=== PATIENT | male | born 1965 | race Caucasian/White ===

== ENCOUNTER 2016-06-27 01:59 | Inpatient (IN) | payer SELFPAY ==
[2016-06-27] MEDS ORDERED: ONDANSETRON HCL INJ/PF 4 MG/2 ML SDV IV ONE (02:04)
[2016-06-27] MEDS ORDERED: NORMAL SALINE 1000 ML 1,000 ML IV PRN (02:05)
[2016-06-27] MEDS ORDERED: GLUCAGON,HUMAN RECOMB 1 MG INJ IM PRN ×2 (02:05→04:28)
[2016-06-27] MEDS ORDERED: NORMAL SALINE 100 ML with INSULIN REGULAR, HUMAN 100 UNIT IV PRN ×4 (02:05→04:28)
[2016-06-27] MEDS ORDERED: DEXTROSE 40% GEL 15 GM TUBE PO PRN ×4 (02:05→04:28)
[2016-06-27] MEDS ORDERED: DEXTROSE 50%-WATER 25 GM/50 ML DISP.SYRIN IV PRN ×4 (02:05→04:28)
[2016-06-27] MEDS ORDERED: INSULIN REG, HUMAN 100 UNIT/ML 3 ML VIAL (PYX) ONE ×2 (02:08→03:15)
[2016-06-27] MEDS ORDERED: SODIUM BICARBONATE 8.4% INJ 50 MEQ/50 ML DISP.SYRIN IV ONE (02:18)
[2016-06-27] MEDS ORDERED: CALCIUM GLUCONATE 1000 MG/10 ML INJ IV ONE (02:20)
--- NOTE | 2016-06-27 02:20 | ER Document Report ---
ED General - General Stated Complaint: BLOOD SUGAR ISSUES Time Seen by Provider: 06/27/16 02:04 Notes: Patient is a 50-year-old male with history of diabetes who presents in what appears to be DKA. He presents for a month. Patient has Kussmaul respirations. History is very limited she is only saying 1 or 2 words at a time. He does admit to IV drug abuse. He cannot tell me the last time he took his insulin. He denies any recent fevers. He has had some vomiting. Further history is very limited due to patient's severely ill state TRAVEL OUTSIDE OF THE [place] IN LAST 30 DAYS: No - Related Data Allergies/Adverse Reactions: No Known Allergies Allergy (Verified 01/26/16 07:42) Past Medical History - Social History Smoking Status: Unknown if Ever Smoked Frequency of alcohol use: None Drug Abuse: Other - IV drug abuse Family History: DM - Past Medical History Cardiac Medical History: Reports: Hx Congestive Heart Failure, Hx Hypertension Endocrine Medical History: Reports: Hx Diabetes Mellitus Type 1 Renal/ Medical History: Reports: Hx Renal Insufficiency - Patient takes an unknown pill for an unknown kidney problem Past Surgical History: Reports: Other - Denies any recent surgery Review of Systems - Review of Systems -: Yes ROS unobtainable due to patient's medical condition - Patient is very ill Physical Exam - Notes Notes: General Appearance: Very thin appearing, alert, cooperative, no acute distress, active Kussmaul respirations. Vitals: reviewed, See vital signs table. Head: no swelling or tenderness to the head Eyes: PERRL, EOMI, Conjuctiva clear Mouth: No decreasd moisture very dry Neck: Supple, no neck tenderness, No thyromegaly Lungs: No wheezing, No rales, No rhonci, 2 small type respirations, good air exchange bilaterally. Heart: Tachycardic rate, Regular rythm, No murmur, no rub Abdomen: Normal BS, soft, No rigidity, No abdominal tenderness, No guarding, no rebound, no abdominal masses, no organomegaly Extremities: strength 5/5 in all extremities, good pulses in all extremities, no swelling or tenderness in the extremities, no edema. Skin: warm, dry, appropriate color, no rash Neuro: speech clear, oriented x 3, moves all extremities on exam. Course - Re-evaluation Re-evalutation: 06/27/16 02:19 Patient EKG shows peaked T waves. I suspect he is very acidotic and most likely hyperkalemic because of it. I have ordered an insulin drip which has been started. I will give him an amp of bicarb as well. We are waiting for his chemistry panel to return. Patient is also receiving IV fluids. We will keep him on a hall monitor. I will give him calcium gluconate to help stabilize cardiac membranes until I see what his actual potassium is. 06/27/16 03:11 Lab called to inform the nurse that the chemistry panel is hemolyzed. I immediately called lab to discuss this with him. They feel that the blood was hemolyzed because his potassium came back at 7.8 and also they are having a hard time obtaining a glucose level. I informed him that I expect his potassium be very high and therefore I want him to go ahead and release the results of the chemistry panel and I will order a second chemistry panel to be redrawn now to help further confirm the results. I will give him a bolus of 10 units of insulin. We will continue the insulin drip on top of that. I will add a bicarb drip. I did just reevaluate the patient and he is awake alert and appropriate. He still has Kussmal type respirations but not as severe as when he first arrived. - Laboratory Result Diagrams: 06/27/16 02:38 06/27/16 03:10 Laboratory results interpreted by me: 06/27/16 06/27/16 06/27/16 02:38 02:38 02:38 WBC 11.5 H RBC 3.90 L Hgb 12.7 L MCV 107 H MCHC 30.5 L RDW 14.8 H Seg Neuts % (Manual) 91 H Band Neutrophils % 1 L Lymphocytes % (Manual) 1 L Abs Neuts (Manual) 10.6 H Abs Lymphs (Manual) 0.1 L Sodium 133.6 L Potassium 7.9 H* Chloride 91 L Carbon Dioxide < 5 L* Anion Gap BUN 53 H Creatinine 2.14 H Est GFR ( Amer) 40 L Est GFR (Non-Af Amer) 33 L Glucose 1083 H* Magnesium 2.7 H Direct Bilirubin 0.7 H Total Protein 6.1 L Urine Glucose (UA) Urine Ketones 06/27/16 06/27/16 02:51 03:10 WBC RBC Hgb MCV MCHC RDW Seg Neuts % (Manual) Band Neutrophils % Lymphocytes % (Manual) Abs Neuts (Manual) Abs Lymphs (Manual) Sodium Potassium 5.9 H D Chloride Carbon Dioxide 7 L* Anion Gap 33 H BUN 49 H Creatinine 1.77 H Est GFR ( Amer) 50 L Est GFR (Non-Af Amer) 41 L Glucose 910 H* Magnesium Direct Bilirubin Total Protein Urine Glucose (UA) >=500 H Urine Ketones 80 H - Transfer of Care Notes: 06/27/16 04:19 On reevaluation the patient's Kussmaul respirations are improving. He is now speaking in full sentences. His potassium on the repeat chemistry panel is improved. The CO2 is improving. His glucose is slowly improving as well. At this time will admit the patient for further treatment of his DKA. I did speak with the hospitalist who agrees to admit the patient. Dictation of this chart was performed using voice recognition software; therefore, there may be some unintended grammatical errors. Critical Care Note - Critical Care Note Total time excluding time spent on procedures (mins): 45 Comments: Critical care time not including times spent on procedures was approximately 45 minutes to do frequent re-evaluations, management of severe hyperkalemia, management of severe metabolic acidosis, management of his DKA. Discharge - Discharge Clinical Impression: Hyperkalemia, Substance abuse Diabetic ketoacidosis Qualifiers: Diabetes mellitus type: type 1 Diabetes mellitus complication detail: without coma Qualified Code(s): E10.10 - Type 1 diabetes mellitus with ketoacidosis without coma Condition: Serious Disposition: ADMITTED INPATIENT Admitting Provider: Hospitalist Unit Admitted: [facility]
[2016-06-27 03:02] LABS: APPEARANCE,URINE CLEAR; BILIRUBIN,URINE NEGATIVE (NEGATIVE); GLUCOSE, URINE >=500 mg/dL (NEGATIVE); KETONES,URINE 80 mg/dL (NEGATIVE); LEUKOCYTE ESTERASE,URINE NEGATIVE (NEGATIVE); NITRITE,URINE NEGATIVE (NEGATIVE); PROTEIN,URINE NEGATIVE (NEGATIVE); URINE SPECIFIC GRAVITY 1.017; UROBILINOGEN,URINE NEGATIVE mg/dL (<2.0)
[2016-06-27] MEDS ORDERED: DEXTROSE 5%-WATER 1000 ML 1,000 ML with SODIUM BICARBONATE 150 MEQ IV PRN ×4 (03:08→04:30)
[2016-06-27 03:09] LABS: ALANINE AMINOTRANSFERASE 51 U/L (21-72); ALBUMIN 3.8 g/dL (3.5-5.0); ALKALINE PHOSPHATASE 126 U/L (38-126); ASPARTATE AMINO TRANSFERASE 35 U/L (17-59); BILIRUBIN,DIRECT 0.7 mg/dL (0.0-0.4); BILIRUBIN,TOTAL 0.8 mg/dL (0.2-1.3); BLOOD UREA NITROGEN 53 mg/dL (7-20); CALCIUM 8.9 mg/dL (8.4-10.2); CREATININE RESULT 2.14 mg/dL (0.52-1.25); TOTAL PROTEIN 6.1 g/dL (6.3-8.2)
[2016-06-27] MEDS ORDERED: INSULIN REG, HUMAN 100 UNIT/ML 3 ML VIAL (PYX) IV ONE (03:10)
[2016-06-27 03:16] LABS: URINE BARBITURATES SCREEN NEGATIVE; URINE METHADONE SCREEN NEGATIVE; URINE OPIATES LOW NEGATIVE; URINE PHENCYCLIDINE SCREEN NEGATIVE
[2016-06-27 03:20] LABS: CHLORIDE 91 mmol/L (98-107); SODIUM 133.6 mmol/L (137-145)
[2016-06-27 03:25] LABS: GLUCOSE 1083 mg/dL (75-110); POTASSIUM 7.9 mmol/L (3.6-5.0)
[2016-06-27 03:26] LABS: CARBON DIOXIDE < 5 mmol/L (22-30); HEMATOCRIT 41.6 % (37.9-51.0); HEMOGLOBIN 12.7 g/dL (13.5-17.0); HGB HCT DIFFERENCE -3.5; MEAN CORPUSCULAR HEMOGLOBIN 32.5 pg (27.0-33.4); MEAN CORPUSCULAR HGB CONC 30.5 g/dL (32.0-36.0); MEAN CORPUSCULAR VOLUME 107 fl (80-97); RED CELL DISTRIBUTION WIDTH 14.8 % (11.5-14.0); WHITE BLOOD COUNT 11.5 10^3/uL (4.0-10.5)
[2016-06-27 03:36] LABS: BLOOD UREA NITROGEN 49 mg/dL (7-20); CALCIUM 8.4 mg/dL (8.4-10.2); CREATININE RESULT 1.77 mg/dL (0.52-1.25)
[2016-06-27] MEDS ORDERED: SODIUM BICARBONATE 8.4% INJ 50 MEQ/50 ML DISP.SYRIN ONE (03:36)
[2016-06-27 03:41] LABS: BAND NEUTROPHILS % (MANUAL) 1 % (3-5); BASOPHILS % (MANUAL) 0 % (0-2); EOSINOPHILS % (MANUAL) 0 % (0-6); LYMPHOCYTES % (MANUAL) 1 % (13-45); TOTAL CELLS COUNTED 100; TOXIC VACUOLATION PRESENT
[2016-06-27 03:42] LABS: ANISOCYTOSIS SLIGHT
[2016-06-27 03:44] LABS: POIKILOCYTOSIS SLIGHT
[2016-06-27 03:45] LABS: PLATELET CLUMPS PRESENT
[2016-06-27 03:46] LABS: TOXIC GRANULATION SLIGHT
[2016-06-27 03:52] LABS: CHLORIDE 98 mmol/L (98-107); SODIUM 137.7 mmol/L (137-145)
[2016-06-27 03:56] LABS: GLUCOSE 910 mg/dL (75-110); POTASSIUM 5.9 mmol/L (3.6-5.0)
[2016-06-27 03:57] LABS: ANION GAP 33 (5-19); CARBON DIOXIDE 7 mmol/L (22-30)
[2016-06-27] MEDS ORDERED: NORMAL SALINE 1000 ML 1,000 ML IV ONE (04:12)
[2016-06-27] MEDS ORDERED: THIAMINE HCL 100 MG in NORMAL SALINE 50 ML IV ONE (04:25)
[2016-06-27] MEDS ORDERED: 1/2 NORMAL SALINE 2,000 ML IV ONE (04:27)
[2016-06-27] MEDS ORDERED: 1/2 NORMAL SALINE 1,000 ML IV PRN ×2 (04:27→04:29)
[2016-06-27 04:41] LABS: ADD ON TESTING BLD IN LAB ACKNOWLEDGE
[2016-06-27 04:55] LABS: ALCOHOL < 10 mg/dL (NONE DETECTED)
[2016-06-27 05:26] LABS: BLOOD UREA NITROGEN 47 mg/dL (7-20); CALCIUM 8.4 mg/dL (8.4-10.2); CHLORIDE 101 mmol/L (98-107); CREATININE RESULT 1.72 mg/dL (0.52-1.25); POTASSIUM 5.3 mmol/L (3.6-5.0); SODIUM 140.2 mmol/L (137-145)
[2016-06-27] MEDS ORDERED: THIAMINE HCL INJ 200 MG/2 ML VIAL ONE (05:28)
[2016-06-27 05:46] LABS: CARBON DIOXIDE 7 mmol/L (22-30); GLUCOSE 765 mg/dL (75-110)
[2016-06-27 05:47] LABS: ANION GAP 32 (5-19)
[2016-06-27] MEDS ORDERED: IPRATROPIUM/ALBUTEROL 0.5-2.5 MG/3 ML AMPUL NEB PRN (05:51)
[2016-06-27] MEDS ORDERED: ACETAMINOPHEN 650 MG SUPP.RECT PR PRN (05:51)
--- NOTE | 2016-06-27 06:31 | PDOC H&P ---
History of Present Illness Admission Date/PCP: 06/27/16 05:06 PCP Uncertain Patient complains of: blood sugar problems History of Present Illness: AMPARO PHAN is a 50 year old male, type I diabetic, previously admitted to our service in diabetic ketoacidosis, and with a known history of intravenous cocaine use, who presents to the emergency room for evaluation of above complaints. Patient has been discussed with emergency room physician who evaluated the patient. Patient is quite ill and confused, mostly only mumbling incoherently to basic questions asked of him, and is able to provide no history whatsoever in terms of acute or chronic events, review of systems, personal habits, family history, etc. No friends or family are present. Old inpatient records are reviewed. . Emergency room physician notes reviewed. Patient does currently deny pain. Also denies any "sore spots" anywhere on his body. No further information available this point in time. Patient has received multiple crystalloid boluses, along with insulin and bicarb drip, started by emergency room physician. According to the emergency room physician, patient's overall appearance has improved somewhat from admission. Patient hospitalized on our service the through 27 January of last year with final diagnoses including diabetic ketoacidosis, and abnormal liver function tests. History and physical and discharge summary have been reviewed. Laboratory results are listed in [facility] and are reviewed. X-ray summary results are listed below, with full report(s) reviewed. . EKG reviewed and compared to prior tracing from January 25 of last year. Social history/personal habits: Information obtained from above noted history and physical exam. At that time, he was living with his parents, and was a current everyday smoker. "Social" alcohol use, with previous documentation of heavy use. No further information available this point in time. No known drug allergies Home medications initially autopopulated into [facility] may not accurately reflect patient's true medications, dosages, and/or frequencies. cardiac catheterization technician to reconcile medications. Patient states that he is taking 70/30 insulin, could not be anymore specific than this. REVIEW OF SYSTEMS: See history and present illness. No further information available this point in time. PHYSICAL EXAMINATION: 44.9 kg. Height is not recorded on the chart.Temperature 98.3. Pulse 110 and regular. Blood pressure 188/99. Respirations are 25, with patient breathing in somewhat of a Kussmaul fashion. According to emergency room physician, respiratory patten is much improved versus on presentation to the emergency room. 100% saturation on room air. Thin chronically ill-appearing male, somewhat disheveled appearance. Appears a number of years older than his stated age. Appears quite ill. Occasional shivering. Skin is warm and dry. No grossly obvious evidence of rash in areas of skin examined. No subcutaneous nodules palpated. ENT: Hearing grossly normal to normal conversation. Tongue midline on protrusion pink and tacky. Eyes: No scleral icterus. Pupils equal and reactive to light at 4 mm. Purdy conjunctivae. No raccoon eyes Neck is supple and nontender to gentle active range of motion and palpation. Midline trachea. No palpable thyroid nodule mass enlargement or tenderness. Lymphatic: No palpable cervical or clavicular nodes. Neck and lymphatic exams limited by patient body habitus. Psychiatric: Cannot be adequately evaluated due to his current status. See history and present illness. Lungs: Auscultation reveals clear and equal breath sounds bilaterally. No use of accessory respiratory muscles. Cardiovascular: Heart regular rate and rhythm, without gallop murmur or rub. No carotid or abdominal aortic bruits. No ankle or pedal edema. Faintly palpable dorsalis pedis pulses. Abdomen:soft slightly distended nontender with positive bowel sounds. Unable to adequately evaluate abdomen for masses or organomegaly due to distention. Extremities: Feet are warm and dry. No calf tenderness to compression. No grossly obvious visual evidence of calf swelling. Gentle manipulation of lower extremities fails to reveal any obvious evidence of injury or instability to knees hips or ankles. Neurologic: Moves upper extremities grossly normally. Patellar reflexes absent. Absent Babinski. Light touch cannot be determined due to his current mental status.. Dorsiflexion and plantarflexion of feet 5 / 5 and symmetric. Past Medical History Past Medical History: Patient cannot provide any information related to his medical history, due to his current status. See history and present illness. Cardiac Medical History: Reports: Congestive Heart Failure, Hypertension Endocrine Medical History: Reports: Diabetes Mellitus Type 1 Psychiatric Medical History: Reports: Substance Abuse Past Surgical History Past Surgical History: Reports: None - per ER staff. Social History Information Source: Emergency Med Personnel, [facility] Records Lives with: Parents - Previously lived with parents. Uncertain at present. Smoking Status: Smoker,Current Status Unk Frequency of Alcohol Use: Occasional - Reported history of heavy alcohol use. Hx Recreational Drug Use: No Drugs: Cocaine Hx Prescription Drug Abuse: No - Advance Directive Resuscitation Status: Full Code Surrogate healthcare decision maker:: Likely his parents, but not completely certain at this point in time. Family History Family History: DM Parental Family History Reviewed: No - Patient cannot provide any information related to same. Children Family History Reviewed: No - Patient cannot provide any information related to same. Sibling(s) Family History Reviewed.: No - Patient cannot provide any information related to same. Medication/Allergy Home Medications: Oxycodone HCl/Acetaminophen [Percocet 5-325 mg Tablet] 1 - 2 tab PO ASDIR PRN # 15 tablet 07/15/13 Unable To Obtain 07/15/13 Lisinopril [Prinivil 10 mg Tablet] 10 mg PO DAILY 06/27/16 Hum Insulin NPH/Reg Insulin Hm [Insulin 70-30 (NPH/Reg) 100 unit/mL] 30 unit SUBCUT BIDACBS #5 bottle 06/28/16 Insulin Regular, Human [Novolin R (Reg) Insulin 100 unit/mL] See Protocol SUBCUT DAILYP PRN #0 06/28/16 Allergies/Adverse Reactions: No Known Allergies Allergy (Verified 01/26/16 07:42) Physical Exam Vital Signs: Temp Pulse Resp BP Pulse Ox 98.3 F 25 H 188/99 H 100 06/27/16 05:02 06/27/16 05:02 06/27/16 05:02 06/27/16 05:02 Results Impressions: Chest X-Ray 06/27/16 00:00 IMPRESSION: Small chronic obscuration of the right costophrenic angle may indicate scar and/or effusion. Assessment & Plan - Diagnosis (1) Acute encephalopathy Is this a current diagnosis for this admission?: YesPlan: Hopefully will improve with time and treatment. (2) DKA, type 1 Qualifiers: Diabetes mellitus complication detail: without coma Qualified Code(s ): E10.10 - Type 1 diabetes mellitus with ketoacidosis without coma Is this a current diagnosis for this admission?: YesPlan: Patient will be admitted under DKA protocol. Insulin drip. Vigorous fluid hydration. Q 4 hours chemistry 7. Hourly Accu-Cheks. Addition of dextrose to intravenous fluid once serum glucose and/or Accu-Cheks 275 or less. IV Pepcid for gastritis prophylaxis. Continue bicarb drip for now. Patient is full code. Knee high SCDs for DVT prophylaxis, along with subcutaneous heparin. Critical care Time spent in evaluation and management of patient: 63 minutes (3) Elevated troponin Is this a current diagnosis for this admission?: YesPlan: Still in the indeterminate range. Likely due to the stress of his DKA. Repeat troponin 2. (4) Hyperkalemia Is this a current diagnosis for this admission?: YesPlan: Should gradually resolve with continued treatment of DKA. Serial chemistry. (5) Cocaine abuse Is this a current diagnosis for this admission?: Yes - Inpatient Certification Based on my medical assessment, after consideration of the patient's comorbidities, presenting symptoms, or acuity I expect that the services needed warrant INPATIENT care.: Yes I certify that my determination is in accordance with my understanding of Medicare's requirements for reasonable and necessary INPATIENT services [42 CFR 412.3e].: Yes Medical Necessity: Need Close Monitoring Due to Risk of Patient Decompensation, Need For IV Fluids, Need For Continuous Telemetry Monitoring, Risk of Complication if Not Cared For in Hospital, Risk of Diagnosis Which Will Require Inpatient Eval/Care/Monitoring Post Hospital Care: D/C or Transfer Summary
[2016-06-27] MEDS ORDERED: CHLORPROMAZINE HCL 10 MG TABLET PO ONE (08:45)
[2016-06-27 08:48] LABS: VENOUS BLOOD BASE EXCESS -4.8 mmol/L; VENOUS BLOOD HCO3 19.2 mmol/L (20-32); VENOUS BLOOD PCO2 32.3 mmHg (35-63); VENOUS BLOOD PH 7.39 (7.30-7.42)
[2016-06-27 09:02] LABS: ANION GAP 18 (5-19); BLOOD UREA NITROGEN 37 mg/dL (7-20); CALCIUM 7.7 mg/dL (8.4-10.2); CHLORIDE 101 mmol/L (98-107); CREATININE RESULT 1.24 mg/dL (0.52-1.25); SODIUM 138.7 mmol/L (137-145)
[2016-06-27 09:17] LABS: CARBON DIOXIDE 20 mmol/L (22-30); POTASSIUM 3.8 mmol/L (3.6-5.0)
[2016-06-27 09:19] LABS: GLUCOSE 431 mg/dL (75-110)
[2016-06-27] MEDS: FAMOTIDINE INJ/PF 20 MG/2 ML SDV IV SCH ×2 (09:52→21:26)
[2016-06-27] MEDS: HEPARIN SOD (PORCINE) 5,000 UNIT/ML 1 ML SYRINGE SUBCUT SCH ×2 (09:52→21:26)
[2016-06-27] MEDS ORDERED: POTASSI CL 20 MEQ/D5-1/2NS 1L 1,000 ML IV PRN (10:47)
[2016-06-27] MEDS ORDERED: HUM INSULIN NPH/REG INSULIN HM 100 UNIT/1 ML 3 ML SUBCUT ONE ×2 (11:30→18:00)
--- NOTE | 2016-06-27 13:53 | PROGRESS NOTE E ---
Progress Note NAME: AMPARO PHAN : 1965 AGE: 50Y DATE: 06/27/2016 ROOM: 301 SUBJECTIVE: Patient has been seen twice today on rounds. The patient is no longer obtunded. The patient will awaken and is quite easily agitated. There have been no reported episodes of vomiting nor diarrhea. The patient states that he had been sick for a couple of days prior to coming in. It has been difficult getting the patient to cooperate with blood sticks and so forth. At this time, the patient only complains of "wanting to be left alone." The patient has been afebrile, his blood pressures have been in a good range, and the patient does not voice any other concerns at this time. REVIEW OF SYSTEMS: Rest of review of systems is negative. MEDICATIONS: Medications have been reviewed. OBJECTIVE: GENERAL: Patient is a 50-year-old male who is awake, alert. He is agitated. Does not appear to be in any acute distress. VITAL SIGNS FOLLOWS: Temperature is 98.4, pulse 73, respirations 17, blood pressure 126/78, oxygen saturation 100% on room air. SKIN: Warm and dry, no rash, not diaphoretic. HEENT: Pupils equal, round, reactive to light and accommodation. Conjunctivae pale, pink. NECK: No JVP. CARDIOVASCULAR: Heart is regular with no murmurs or rubs. CHEST: Clear, symmetrical, unlabored. ABDOMEN: Soft, bowel sounds present. BACK: No CVA tenderness or sacral edema. EXTREMITIES: No clubbing, cyanosis, edema. PSYCHIATRIC: Agitated, uncooperative. DIAGNOSTICS: Lab values are as follows: Hematology obtained on 06/27/2016: WBC 11.5, hemoglobin 12.7, hematocrit 41.6, platelet count 184,000. Chemistry obtained on 06/27/2016: Sodium 138, potassium 3.8, chloride 101, carbon dioxide 20, BUN 37, creatinine 0.64, calcium 7.7, current bedside glucose is 276. IMPRESSION AND PLAN: 1. DIABETIC KETOACIDOSIS IN DIABETES MELLITUS, TYPE 1. The patient's gap has closed. CO2 has improved significantly. The patient did have a rapid drop in potassium in a very short amount of time, therefore, even though his glucose is still 276 we will go ahead and transition fluids over to dextrose and transition sliding scale coverage to NovoLog q.2 h. for now. We will go ahead and feed the patient, discontinue the insulin drip, and start on home dose of 70/30. I did obtain a venous blood gas and pH of 7.39, so bicarb drip was discontinued. Will follow. Given that patient's gap is closed, if the patient continues to improve we will downgrade to an intermediate care bed. 2. COCAINE ABUSE. The patient is receiving counseling at this time. 3. HYPERTENSION. Blood pressures have been in a good range. Will defer home blood pressure medication for now. 4. MALNUTRITION. This is most likely due to the chronic acidotic with type 1 diabetes. The patient does have a dietary consult ordered. DISPOSITION: The patient is a FULL CODE. Pending patient's symptomatology and diagnostic findings, will reevaluate in the a.m. TIME: Time spent on this critical care visit including assessment, plan, physical examination, patient education, and family meeting is 40 minutes. DICTATING PHYSICIAN: AMPARO BOND NP [id number] PHY#: [id number] ID: [id number] JOB#: [id number] ACCT: [id number] cc: >
[2016-06-27] MEDS: INSULIN LISPRO 100 UNIT/ML 3 ML VIAL SUBCUT PRN ×2 (14:52→17:17)
[2016-06-27 15:33] LABS: ANION GAP 14 (5-19); BLOOD UREA NITROGEN 28 mg/dL (7-20); CALCIUM 7.6 mg/dL (8.4-10.2); CARBON DIOXIDE 25 mmol/L (22-30); CHLORIDE 99 mmol/L (98-107); CREATININE RESULT 0.97 mg/dL (0.52-1.25); GLUCOSE 314 mg/dL (75-110); POTASSIUM 3.5 mmol/L (3.6-5.0); SODIUM 137.5 mmol/L (137-145)
[2016-06-27] MEDS ORDERED: HUM INSULIN NPH/REG INSULIN HM 100 UNIT/1 ML 3 ML SUBCUT SCH (16:00)
--- NOTE | 2016-06-27 17:44 | EKG REPORT ---
SEVERITY:- ABNORMAL ECG - WANDERING PACEMAKER RBBB AND LAFB PROBABLE LEFT VENTRICULAR HYPERTROPHY : Confirmed by: Dannielle Joshi MD 27-Jun-2016 17:43:51
[2016-06-27 19:34] LABS: ANION GAP 8 (5-19); BLOOD UREA NITROGEN 28 mg/dL (7-20); CALCIUM 8.3 mg/dL (8.4-10.2); CARBON DIOXIDE 27 mmol/L (22-30); CHLORIDE 98 mmol/L (98-107); CREATININE RESULT 0.74 mg/dL (0.52-1.25); GLUCOSE 305 mg/dL (75-110); POTASSIUM 3.4 mmol/L (3.6-5.0); SODIUM 133.1 mmol/L (137-145)
[2016-06-27] MEDS: INSULIN LISPRO 100 UNIT/ML 3 ML VIAL SUBCUT SCH (21:26)
[2016-06-27 23:48] LABS: ANION GAP 7 (5-19); BLOOD UREA NITROGEN 25 mg/dL (7-20); CALCIUM 8.8 mg/dL (8.4-10.2); CARBON DIOXIDE 30 mmol/L (22-30); CHLORIDE 99 mmol/L (98-107); CREATININE RESULT 0.69 mg/dL (0.52-1.25); GLUCOSE 98 mg/dL (75-110); SODIUM 136.3 mmol/L (137-145)
[2016-06-28] MEDS ORDERED: POTASSIUM CHLORIDE 20 MEQ/15 ML UDCUP PO ONE (01:33)
[2016-06-28 01:45] LABS: ADD ON TESTING BLD IN LAB ACKNOWLEDGE
[2016-06-28 01:54] LABS: MAGNESIUM 2.1 mg/dL (1.6-2.3)
[2016-06-28] MEDS: POTASSIUM CHLORIDE 20 MEQ/15 ML UDCUP PO SCH ×2 (03:24→05:29)
[2016-06-28 06:47] LABS: ABSOLUTE EOSINOPHILS # (AUTO) 0.1 10^3/uL (0.0-0.6); ABSOLUTE LYMPHOCYTES (AUTO) 1.1 10^3/uL (0.5-4.7); ABSOLUTE MONOCYTES (AUTO) 0.5 10^3/uL (0.1-1.4); ABSOLUTE NEUT (AUTO) 5.5 10^3/uL (1.7-8.2); BASOPHILS % (AUTO) 0.3 % (0-2); EOSINOPHILS % (AUTO) 0.7 % (0-6); HEMATOCRIT 32.4 % (37.9-51.0); HEMOGLOBIN 11.6 g/dL (13.5-17.0); HGB HCT DIFFERENCE 2.4; LYMPHOCYTES % (AUTO) 14.7 % (13-45); MEAN CORPUSCULAR HEMOGLOBIN 33.2 pg (27.0-33.4); MEAN CORPUSCULAR HGB CONC 35.9 g/dL (32.0-36.0); MONOCYTES % (AUTO) 7.4 % (3-13); RED CELL DISTRIBUTION WIDTH 13.3 % (11.5-14.0); SEGMENTED NEUTROPHILS % (AUTO) 76.9 % (42-78); WHITE BLOOD COUNT 7.2 10^3/uL (4.0-10.5)
[2016-06-28 06:59] LABS: BLOOD UREA NITROGEN 18 mg/dL (7-20); CALCIUM 8.5 mg/dL (8.4-10.2); CARBON DIOXIDE 30 mmol/L (22-30); CREATININE RESULT 0.65 mg/dL (0.52-1.25); GLUCOSE 129 mg/dL (75-110)
[2016-06-28 07:00] LABS: MEAN CORPUSCULAR VOLUME 93 fl (80-97)
[2016-06-28 07:14] LABS: CHLORIDE 101 mmol/L (98-107); SODIUM 133.4 mmol/L (137-145)
[2016-06-28 07:17] LABS: ANION GAP 2 (5-19); POTASSIUM 4.1 mmol/L (3.6-5.0)
[2016-06-28] MEDS ORDERED: HUM INSULIN NPH/REG INSULIN HM 100 UNIT/1 ML 3 ML SUBCUT SCH (08:00)
[2016-06-28] MEDS: INSULIN LISPRO 100 UNIT/ML 3 ML VIAL SUBCUT SCH (08:53)
[2016-06-28] MEDS ORDERED: THIAMINE HCL 100 MG TABLET PO SCH (10:00)
[2016-06-28] MEDS ORDERED: FOLIC ACID 1 MG TABLET PO SCH (10:00)
[2016-06-28] MEDS: FAMOTIDINE INJ/PF 20 MG/2 ML SDV IV SCH (10:58)
[2016-06-28] MEDS: HEPARIN SOD (PORCINE) 5,000 UNIT/ML 1 ML SYRINGE SUBCUT SCH (10:59)
[2016-06-28 13:12] VITALS: BP 117/69
--- NOTE | 2016-06-29 08:20 | DISCHARGE SUMMARY E ---
Discharge Summary NAME: AMPARO PHAN : 1965 AGE: 50Y ADMITTED: 06/27/2016 DISCHARGED: 06/28/2016 CODE STATUS: Full code. PRIMARY CARE PROVIDER: [facility] DISCHARGE DIAGNOSES: 1. Diabetic ketoacidosis in insulin dependent type 1 diabetic. 2. Hypertension. 3. Cocaine abuse. 4. Noncompliance and subsequent admission for number 1. DISCHARGE MEDICATIONS: 1. Humulin 70/30, 30 units subcutaneous b.i.d. 5 bottles and refills. 2. Humulin R sliding scale coverage a.c. and at bedtime. 3. Lisinopril 10 mg p.o. daily. DIET: Diabetic. ACTIVITY: As tolerated. HISTORY OF PRESENT ILLNESS: The patient is a 50-year-old male with a past medical history of diabetes mellitus type 1 and previous admissions for DKA, that is well known to the hospital service. The patient presented to the Emergency Department with a chief complaint of blood sugar problems. The patient has a known history of IV cocaine use who presented to the Emergency Room due to having high blood sugar. The patient was quite ill and confused on presentation, so history was obtained from the ER physician. The patient was noted to be mumbling incoherently to basic questions. The patient was unable to provide any history at all. The patient had received multiple crystal boluses along with insulin and was referred to the hospital for admission and management. HOSPITAL COURSE: The patient was admitted to the ICU. The patient was aggressively hydrated and the patient's potassium was replaced after it very quickly dropped with fluid correction. The patient's fluids were switched over to D5 with potassium supplement. The patient initially was belligerent very quickly corrected and was down-graded to the IMCU. The patient's diet was advanced as tolerated. The patient was only started on his home insulin regiment for which his blood glucose had excellent glycemic control with this with no lows and an average of 150. The patient is ready for discharge. LABS. Sodium 133, potassium 4.1, chloride 101, carbon dioxide 30, BUN 18, calcium 8.5 PHYSICAL EXAMINATION: GENERAL: On examination, the patient is a well-developed frail appearing 50-year-old male who is awake, alert and oriented to person, place, time, and situation. He is verbal and conversational, does not appear to be in any acute distress. VITAL SIGNS: Vital signs as follows: Temperature 98.3. Pulse 80. Respirations 16. Blood pressure is 117/69. Oxygen saturation is 100% on room air. SKIN: Warm and dry. No rash. Not diaphoretic. HEENT: Pupils are equal, round, and reactive to light and accommodation. Conjunctivae pink. NECK: No JVP. CARDIOVASCULAR: Heart is regular. There is no murmur or rub. CHEST: Clear to auscultation symmetrical and unlabored. ABDOMEN: Soft. Nontender, nondistended. BACK: No CVA tenderness or sacral edema. EXTREMITIES: No clubbing, cyanosis or edema. PSYCHIATRIC: Appropriate affect. Easily agitated mood. DISCHARGE PLANNING: The patient is to follow up with his primary care provider at the [facility] within 1 week for hospital followup. The patient was instructed to stop using cocaine. Time spent on this discharge including assessment and plan, physical examination and patient education is 20 minutes. DICTATING PHYSICIAN: AMPARO BOND NP [id number] Y#: [id number] ID: [id number] JOB#: [id number] ACCT: [id number] cc:DONAL OLIVEROS M.D. AMPARO BOND NP > MTDD
== END 2016-06-28 13:39 | disposition home or self-care (01) | DRG 638 ==
LOC: ER 01:59 → EH 05:06 → UNDOADMIN 05:06 → ICU 05:51 → EH 06:30 → 3N 12:41
PROVIDERS: ADMIT Family Medicine; ATTEND Family Medicine
DX: E10.10 Type 1 diabetes mellitus with ketoacidosis without coma (principal); E46 Unspecified protein-calorie malnutrition; Z68.1 Body mass index [BMI] 19.9 or less, adult; E87.5 Hyperkalemia; I11.0 Hypertensive heart disease with heart failure; I50.9 Heart failure, unspecified; R77.8 Other specified abnormalities of plasma proteins; F14.10 Cocaine abuse, uncomplicated; Z79.4 Long term (current) use of insulin; Z91.14 Patient's other noncompliance with medication regimen
CPT/HCPCS: 36415; 71010; 80048; 80053; 80307; 81001; 82803; 82962; 83735; 84484; 85025; 93005; 93010; 96365; 96367; 96375; 96376; 99291; J0610; J1644; J1815; J2405; J3411; J3480; J3490; J7030; J7060; S0028

== ENCOUNTER 2016-11-27 07:12 | Emergency (ER) | payer OTHER ==
[2016-11-27] MEDS ORDERED: NORMAL SALINE 1000 ML 1,000 ML IV PRN (07:37)
[2016-11-27 08:23] LABS: ABSOLUTE BASOPHILS # (AUTO) 0.1 10^3/uL (0.0-0.2); ABSOLUTE EOSINOPHILS # (AUTO) 0.1 10^3/uL (0.0-0.6); ABSOLUTE LYMPHOCYTES (AUTO) 1.2 10^3/uL (0.5-4.7); ABSOLUTE MONOCYTES (AUTO) 0.5 10^3/uL (0.1-1.4); ABSOLUTE NEUT (AUTO) 4.1 10^3/uL (1.7-8.2); BASOPHILS % (AUTO) 1.3 % (0-2); EOSINOPHILS % (AUTO) 1.9 % (0-6); HEMATOCRIT 41.7 % (37.9-51.0); HEMOGLOBIN 14.3 g/dL (13.5-17.0); HGB HCT DIFFERENCE 1.2; LYMPHOCYTES % (AUTO) 20.1 % (13-45); MEAN CORPUSCULAR HEMOGLOBIN 32.8 pg (27.0-33.4); MEAN CORPUSCULAR HGB CONC 34.3 g/dL (32.0-36.0); MEAN CORPUSCULAR VOLUME 96 fl (80-97); MONOCYTES % (AUTO) 8.7 % (3-13); RED BLOOD COUNT 4.37 10^6/uL (4.35-5.55); RED CELL DISTRIBUTION WIDTH 12.7 % (11.5-14.0)
[2016-11-27 08:42] LABS: ALANINE AMINOTRANSFERASE 78 U/L (21-72); ALBUMIN 4.1 g/dL (3.5-5.0); ALKALINE PHOSPHATASE 109 U/L (38-126); ANION GAP 14 (5-19); ASPARTATE AMINO TRANSFERASE 58 U/L (17-59); BILIRUBIN,DIRECT 0.4 mg/dL (0.0-0.4); BILIRUBIN,TOTAL 0.9 mg/dL (0.2-1.3); BLOOD UREA NITROGEN 16 mg/dL (7-20); CALCIUM 9.7 mg/dL (8.4-10.2); CARBON DIOXIDE 29 mmol/L (22-30); CHLORIDE 93 mmol/L (98-107); CREATININE RESULT 0.57 mg/dL (0.52-1.25); POTASSIUM 4.6 mmol/L (3.6-5.0); SODIUM 135.5 mmol/L (137-145); TOTAL PROTEIN 6.8 g/dL (6.3-8.2)
[2016-11-27 08:51] LABS: GLUCOSE 478 mg/dL (75-110)
[2016-11-27] MEDS ORDERED: INSULIN REG, HUMAN 100 UNIT/ML 3 ML VIAL (PYX) IV ONE ×2 (09:18→10:53)
[2016-11-27] MEDS ORDERED: INSULIN REG, HUMAN 100 UNIT/ML 3 ML VIAL (PYX) ONE (09:25)
--- NOTE | 2016-11-27 09:26 | ER Document Report ---
ED General - General Chief Complaint: High Blood Sugar Stated Complaint: BLOOD SUGAR ISSUES Time Seen by Provider: 11/27/16 07:36 Mode of Arrival: Ambulatory Information source: Patient Notes: 51-year-old diabetic male who is on 7030 Lantus 30 units twice daily presents with complaints of high blood sugar. Patient notes over the past week has not been feeling well. Patient denies any fevers or chills denies any nausea vomiting. Patient notes he has been in diabetic ketoacidosis before does not feel that bad now. Patient admits to urinary frequency Patient does not check his blood sugar consistently TRAVEL OUTSIDE OF THE [place] IN LAST 30 DAYS: No - HPI Onset: Last week Onset/Duration: Persistent Quality of pain: No pain Severity: Mild Pain Level: Denies Associated symptoms: Other - Not feeling well Exacerbated by: Denies Relieved by: Denies Similar symptoms previously: Yes Recently seen / treated by doctor: Yes - Related Data Allergies/Adverse Reactions: No Known Allergies Allergy (Verified 11/27/16 07:17) Home Medications: Current Home Medications Aspirin [Aspirin EC] 81 mg PO DAILY 11/27/16 [History] Hum Insulin NPH/Reg Insulin Hm [Insulin 70-30 (NPH/Reg) 100 unit/mL] 30 unit SQ QAM 11/27/16 [History] Hum Insulin NPH/Reg Insulin Hm [Insulin 70-30 (NPH/Reg) 100 unit/mL] 30 unit SQ QHS 11/27/16 [History] Multivitamin/Iron/Folic Acid [Centrum Adults Tablet] 1 tab PO DAILY 11/27/16 [ History] Vitamin B Complex 1 tab PO DAILY 11/27/16 [History] Past Medical History - Social History Smoking Status: Unknown if Ever Smoked Cigarette use (# per day): No Chew tobacco use (# tins/day): No Smoking Education Provided: No Frequency of alcohol use: None Drug Abuse: None Family History: DM Patient has suicidal ideation: No Patient has homicidal ideation: No - Past Medical History Cardiac Medical History: Reports: Hx Congestive Heart Failure, Hx Hypertension Endocrine Medical History: Reports: Hx Diabetes Mellitus Type 1 Renal/ Medical History: Reports: Hx Renal Insufficiency - Patient takes an unknown pill for an unknown kidney problem. Denies: Hx Peritoneal Dialysis Past Surgical History: Reports: Other - Denies any recent surgery Review of Systems - Review of Systems Notes: REVIEW OF SYSTEMS: CONSTITUTIONAL : Denies fever, chills, or sweats. Denies recent illness. EENT: Denies eye, ear, throat, or mouth pain or symptoms. Denies nasal or sinus congestion or discharge. Denies throat, tongue, or mouth swelling or difficulty swallowing. CARDIOVASCULAR: Denies chest pain. Denies palpitations or racing or irregular heart beat. Denies ankle edema. RESPIRATORY: Denies cough, cold, or chest congestion. Denies shortness of breath, difficulty breathing, or wheezing. GASTROINTESTINAL: Denies abdominal pain or distention. Denies nausea, vomiting , or diarrhea. Denies blood in vomitus, stools, or per rectum. Denies black, tarry stools. Denies constipation. GENITOURINARY: Denies difficulty urinating, painful urination, burning, frequency, blood in urine, or discharge. MUSCULOSKELETAL: Denies back or neck pain or stiffness. Denies joint pain or swelling. SKIN: Denies rash, lesions or sores. HEMATOLOGIC : Denies easy bruising or bleeding. LYMPHATIC: Denies swollen, enlarged glands. NEUROLOGICAL: Admits to not feeling well PSYCHIATRIC: Denies anxiety or stress. Denies depression, suicidal ideation, or homicidal ideation. ALL OTHER SYSTEMS REVIEWED AND NEGATIVE. Dictation was performed using [employer] voice recognition software PHYSICAL EXAMINATION: GENERAL: Well-appearing, well-nourished and in no acute distress. HEAD: Atraumatic, normocephalic. EYES: Pupils equal round and reactive to light, extraocular movements intact, sclera anicteric, conjunctiva are normal. ENT: Nares patent, oropharynx clear without exudates. Moist mucous membranes. NECK: Normal range of motion, supple without lymphadenopathy LUNGS: Breath sounds clear to auscultation bilaterally and equal. No wheezes rales or rhonchi. HEART: Regular rate and rhythm without murmurs ABDOMEN: Soft, nontender, nondistended abdomen. No guarding, no rebound. No masses appreciated. Musculoskeletal: Normal range of motion, no pitting or edema. No cyanosis. NEUROLOGICAL: Cranial nerves grossly intact. Normal speech, normal gait. Normal sensory, motor exams PSYCH: Normal mood, normal affect. SKIN: Warm, Dry, normal turgor, no rashes or lesions noted. Physical Exam - Vital signs Vitals: Temp Pulse Resp BP Pulse Ox 97.8 F 82 16 140/102 H 100 10 07:24 11/27/16 07:24 11/27/16 07:24 11/27/16 07:24 11/27/16 07:24 Course - Re-evaluation Re-evalutation: 11/27/16 09:26 Patient's blood sugar is noted to be 478, he has been given IV fluids and insulin. He is not in diabetic ketoacidosis at this time. 11/27/16 15:24 Patient's blood sugars improved significantly after treatment. He feels well denies any other concerns. Treatment at this time is on need temporary if the patient does not continue follow-up and actually get treated by his primary care physician. After performing a Medical Screening Examination, I estimate there is LOW risk for ACUTE APPENDICITIS, BOWEL OBSTRUCTION, ACUTE CHOLECYSTITIS, PERFORATED DIVERTICULITIS, INCARCERATED HERNIA, PANCREATITIS, TESTICULAR TORSION or PERFORATED ULCER, thus I consider the discharge disposition reasonable. Also, there is no evidence or peritonitis, sepsis, or toxicity. I have reevaluated this patient multiple times and no significant life threatening changes are noted. The patient and I have discussed the diagnosis and risks, and we agree with discharging home with close follow-up with the understanding that symptoms and presentations can change. We also discussed returning to the Emergency Department immediately if new or worsening symptoms occur. We have discussed the symptoms which are most concerning (e.g., bloody stool, fever, changing or worsening pain, intractable vomiting - standard verbal up date) that necessitate immediate return. - Vital Signs Vital signs: Temp Pulse Resp BP Pulse Ox 98.4 F 78 15 187/98 H 98 11/27/16 13:00 11/27/16 13:00 11/27/16 13:00 11/27/16 13:00 11/27/16 13:00 - Laboratory Result Diagrams: 11/27/16 07:55 11/27/16 07:55 Laboratory results interpreted by me: 11/27/16 11/27/16 11/27/16 07:26 07:55 09:21 VBG pH 7.28 L Sodium 135.5 L Chloride 93 L Glucose 478 H* POC Glucose 463 H* ALT 78 H Urine Glucose (UA) Urine Ketones 11/27/16 11/27/16 11/27/16 09:28 09:30 10:48 VBG pH Sodium Chloride Glucose POC Glucose 442 H* 327 H ALT Urine Glucose (UA) >=500 H Urine Ketones 20 H 11/27/16 11:49 VBG pH Sodium Chloride Glucose POC Glucose 218 H ALT Urine Glucose (UA) Urine Ketones Critical Care Note - Critical Care Note Total time excluding time spent on procedures (mins): 38 Comments: 38 minutes of critical care time spent in direct contact evaluating and reevaluating the patient, treating symptoms, reviewing labs and studies and speaking with family and consultants excluding any procedures Discharge - Discharge Clinical Impression: Hyperglycemia due to type 1 diabetes mellitus Hypertension Qualifiers: Hypertension type: unspecified Qualified Code(s): I10 - Essential (primary) hypertension Condition: Stable Disposition: HOME, SELF-CARE Instructions: Hyperglycemia ([facility]) Referrals: ZACH STRONG MD [Primary Care Provider] - Follow up in 3-5 days
[2016-11-27 09:32] LABS: VENOUS BLOOD BASE EXCESS -0.8 mmol/L; VENOUS BLOOD HCO3 27.2 mmol/L (20-32); VENOUS BLOOD PCO2 59.8 mmHg (35-63); VENOUS BLOOD PH 7.28 (7.30-7.42)
[2016-11-27 09:46] LABS: APPEARANCE,URINE CLEAR; BILIRUBIN,URINE NEGATIVE (NEGATIVE); GLUCOSE, URINE >=500 mg/dL (NEGATIVE); KETONES,URINE 20 mg/dL (NEGATIVE); LEUKOCYTE ESTERASE,URINE NEGATIVE (NEGATIVE); NITRITE,URINE NEGATIVE (NEGATIVE); PROTEIN,URINE NEGATIVE (NEGATIVE); URINE SPECIFIC GRAVITY 1.029; UROBILINOGEN,URINE NEGATIVE mg/dL (<2.0)
[2016-11-27 14:42] VITALS: BP 187/98
== END 2016-11-27 13:00 | disposition home or self-care (01) ==
LOC: ER 07:12
DX: E10.65 Type 1 diabetes mellitus with hyperglycemia (principal); I10 Essential (primary) hypertension
CPT/HCPCS: 99285; 96360; 36415; 82962; 85025; 80053; 81001; 82803; J1815; J7030

== ENCOUNTER 2017-02-11 12:48 | Inpatient (IN) | payer OTHER ==
--- NOTE | 2017-02-11 13:02 | ER Document Report ---
ED Medical Screen (RME) - General Chief Complaint: High Blood Sugar Stated Complaint: WEAKNESS Time Seen by Provider: 02/11/17 13:02 TRAVEL OUTSIDE OF THE [place] IN LAST 30 DAYS: No - HPI Patient complains to provider of: Weakness, fatigue, high blood sugar, nausea Notes: 02/11/17 13:06 Insulin-dependent diabetic, has history of DKA, coma, intubation secondary to high blood sugar. Patient presents with increasing nausea vomiting, oliguria, poly-dyspnea. Patient's blood sugar at home read high. Patient's main complaint now is generalized weakness and nausea. - Related Data Allergies/Adverse Reactions: No Known Allergies Allergy (Verified 02/11/17 12:49) Past Medical History - Past Medical History Cardiac Medical History: Reports: Hx Congestive Heart Failure, Hx Hypertension Endocrine Medical History: Reports: Hx Diabetes Mellitus Type 1 Renal/ Medical History: Reports: Hx Renal Insufficiency - Patient takes an unknown pill for an unknown kidney problem. Denies: Hx Peritoneal Dialysis Past Surgical History: Reports: Other - Denies any recent surgery Review of Systems - Review of Systems Constitutional: Weakness Gastrointestinal: Abdominal pain, Nausea, Vomiting Physical Exam - Vital signs Vitals: Temp Pulse Resp BP Pulse Ox 98.1 F 116 H 26 H 123/94 H 100 02/11/17 12:52 02/11/17 12:52 02/11/17 12:52 02/11/17 12:52 02/11/17 12:52 Interpretation: Normal - General General appearance: Appears well, Alert - HEENT Head: Normocephalic, Atraumatic Eyes: Normal Pupils: PERRL - Respiratory Respiratory status: No respiratory distress Chest status: Nontender Breath sounds: Normal Chest palpation: Normal - Cardiovascular Rhythm: Regular Heart sounds: Normal auscultation Murmur: No - Abdominal Inspection: Normal Distension: No distension Bowel sounds: Normal Tenderness: Tender. No: McBurney's point, Patel's sign, Guarding Organomegaly: No organomegaly - Back Back: Normal, Nontender - Extremities General upper extremity: Normal inspection, Nontender, Normal color, Normal ROM , Normal temperature General lower extremity: Normal inspection, Nontender, Normal color, Normal ROM , Normal temperature, Normal weight bearing. No: Regine's sign - Neurological Neuro grossly intact: Yes Cognition: Normal Orientation: AAOx4 Frankie Coma Scale Eye Opening: Spontaneous Frankie Coma Scale Verbal: Oriented Frankie Coma Scale Motor: Obeys Commands [place] Coma Scale Total: 15 Speech: Normal Motor strength normal: LUE, RUE, LLE, RLE Sensory: Normal - Psychological Associated symptoms: Normal affect, Normal mood - Skin Skin Temperature: Warm Skin Moisture: Dry Skin Color: Normal Course - Vital Signs Vital signs: Temp Pulse Resp BP Pulse Ox 98.1 F 116 H 26 H 123/94 H 100 02/11/17 12:52 02/11/17 12:52 02/11/17 12:52 02/11/17 12:52 02/11/17 12:52
[2017-02-11] MEDS ORDERED: NORMAL SALINE 1000 ML 1,000 ML IV ONE (13:09)
[2017-02-11] MEDS ORDERED: ONDANSETRON HCL INJ/PF 4 MG/2 ML SDV IV ONE (13:10)
[2017-02-11 13:39] LABS: ABSOLUTE BASOPHILS # (AUTO) 0.1 10^3/uL (0.0-0.2); ABSOLUTE LYMPHOCYTES (AUTO) 1.5 10^3/uL (0.5-4.7); ABSOLUTE MONOCYTES (AUTO) 0.7 10^3/uL (0.1-1.4); ABSOLUTE NEUT (AUTO) 5.5 10^3/uL (1.7-8.2); BASOPHILS % (AUTO) 0.8 % (0-2); EOSINOPHILS % (AUTO) 0.3 % (0-6); HEMATOCRIT 46.3 % (37.9-51.0); HEMOGLOBIN 15.4 g/dL (13.5-17.0); LYMPHOCYTES % (AUTO) 19.4 % (13-45); MEAN CORPUSCULAR HEMOGLOBIN 32.3 pg (27.0-33.4); MEAN CORPUSCULAR HGB CONC 33.2 g/dL (32.0-36.0); MEAN CORPUSCULAR VOLUME 97 fl (80-97); MONOCYTES % (AUTO) 8.6 % (3-13); PLATELET COUNT 291 10^3/uL (150-450); RED BLOOD COUNT 4.76 10^6/uL (4.35-5.55); RED CELL DISTRIBUTION WIDTH 13.3 % (11.5-14.0); SEGMENTED NEUTROPHILS % (AUTO) 70.9 % (42-78); TOTAL CELLS COUNTED % (AUTO) 100 %; WHITE BLOOD COUNT 7.8 10^3/uL (4.0-10.5)
[2017-02-11 13:40] LABS: VENOUS BLOOD HCO3 15.3 mmol/L (20-32); VENOUS BLOOD PCO2 36.3 mmHg (35-63); VENOUS BLOOD PH 7.24 (7.30-7.42)
--- NOTE | 2017-02-11 13:46 | ER Document Report ---
ED General - General Chief Complaint: High Blood Sugar Stated Complaint: WEAKNESS Time Seen by Provider: 02/11/17 13:02 Mode of Arrival: Ambulatory Information source: Patient Notes: 51 yr old male hx of diabetes on novolog 70/30 presents with complaints of 2 weeks of not feeling well. denies any fevers or chills. pt notes he has been in [place] in the past TRAVEL OUTSIDE OF THE [place] IN LAST 30 DAYS: No - HPI Onset: Other Onset/Duration: Persistent Quality of pain: Achy Severity: Mild Pain Level: 1 Associated symptoms: Other Exacerbated by: Denies - Related Data Allergies/Adverse Reactions: No Known Allergies Allergy (Verified 02/11/17 12:49) Past Medical History - Social History Smoking Status: Current Every Day Smoker Chew tobacco use (# tins/day): No Frequency of alcohol use: None Drug Abuse: None Family History: DM Patient has suicidal ideation: No Patient has homicidal ideation: No - Past Medical History Cardiac Medical History: Reports: Hx Congestive Heart Failure, Hx Hypertension Endocrine Medical History: Reports: Hx Diabetes Mellitus Type 1 Renal/ Medical History: Reports: Hx Renal Insufficiency - Patient takes an unknown pill for an unknown kidney problem. Denies: Hx Peritoneal Dialysis Past Surgical History: Reports: Other - Denies any recent surgery Review of Systems - Review of Systems Notes: REVIEW OF SYSTEMS: CONSTITUTIONAL : Admits to not feeling well EENT: Denies eye, ear, throat, or mouth pain or symptoms. Denies nasal or sinus congestion or discharge. Denies throat, tongue, or mouth swelling or difficulty swallowing. CARDIOVASCULAR: Denies chest pain. Denies palpitations or racing or irregular heart beat. Denies ankle edema. RESPIRATORY: Denies cough, cold, or chest congestion. Denies shortness of breath, difficulty breathing, or wheezing. GASTROINTESTINAL: Denies abdominal pain or distention. Denies nausea, vomiting , or diarrhea. Denies blood in vomitus, stools, or per rectum. Denies black, tarry stools. Denies constipation. GENITOURINARY: Denies difficulty urinating, painful urination, burning, frequency, blood in urine, or discharge. MUSCULOSKELETAL: Denies back or neck pain or stiffness. Denies joint pain or swelling. SKIN: Denies rash, lesions or sores. HEMATOLOGIC : Denies easy bruising or bleeding. LYMPHATIC: Denies swollen, enlarged glands. NEUROLOGICAL: Denies confusion or altered mental status. Denies passing out or loss of consciousness. Denies dizziness or lightheadedness. Denies headache. Denies weakness or paralysis or loss of use of either side. Denies problems with gait or speech. Denies sensory loss, numbness, or tingling. Denies seizures. PSYCHIATRIC: Denies anxiety or stress. Denies depression, suicidal ideation, or homicidal ideation. ALL OTHER SYSTEMS REVIEWED AND NEGATIVE. Dictation was performed using [employer] voice recognition software PHYSICAL EXAMINATION: GENERAL: Overall well-appearing no acute distress HEAD: Atraumatic, normocephalic. EYES: Pupils equal round and reactive to light, extraocular movements intact, sclera anicteric, conjunctiva are normal. ENT: Nares patent, oropharynx clear without exudates. Moist mucous membranes. NECK: Normal range of motion, supple without lymphadenopathy LUNGS: Breath sounds clear to auscultation bilaterally and equal. No wheezes rales or rhonchi. HEART: Tachycardic ABDOMEN: Soft, nontender, nondistended abdomen. No guarding, no rebound. No masses appreciated. Musculoskeletal: Normal range of motion, no pitting or edema. No cyanosis. NEUROLOGICAL: Cranial nerves grossly intact. Normal speech, normal gait. Normal sensory, motor exams PSYCH: Normal mood, normal affect. SKIN: Warm, Dry, normal turgor, no rashes or lesions noted. Physical Exam - Vital signs Vitals: Temp Pulse Resp BP Pulse Ox 98.1 F 116 H 26 H 123/94 H 100 02/11/17 12:52 02/11/17 12:52 02/11/17 12:52 02/11/17 12:52 02/11/17 12:52 Course - Re-evaluation Re-evalutation: 02/11/17 14:47 Patient is in DKA, I will admit to Dr. Reese who requests 5 units an hour of insulin drip - Vital Signs Vital signs: Temp Pulse Resp BP Pulse Ox 98.1 F 116 H 24 H 171/103 H 100 02/11/17 12:52 02/11/17 12:52 02/11/17 16:01 02/11/17 16:01 02/11/17 16:01 - Laboratory Result Diagrams: 02/11/17 13:20 02/11/17 13:20 Laboratory results interpreted by me: 02/11/17 02/11/17 02/11/17 13:20 13:20 13:40 VBG pH 7.24 L VBG HCO3 15.3 L Potassium 5.1 H Chloride 94 L Carbon Dioxide 15 L Anion Gap 31 H BUN 27 H Creatinine 1.29 H Est GFR (Non-Af Amer) 59 L Glucose 519 H* Calcium 11.0 H Phosphorus 5.7 H Magnesium 2.6 H Direct Bilirubin 0.5 H Alkaline Phosphatase 131 H Albumin 5.2 H Urine Glucose (UA) >=500 H Urine Ketones 80 H Critical Care Note - Critical Care Note Total time excluding time spent on procedures (mins): 34 Comments: 34 minutes of critical care time spent in direct contact evaluating and reevaluating the patient, treating symptoms, reviewing labs and studies and speaking with family and consultants excluding any procedures Discharge - Discharge Clinical Impression: DKA (diabetic ketoacidoses) Qualifiers: Diabetes mellitus type: type 1 Diabetes mellitus complication detail: without coma Qualified Code(s): E10.10 - Type 1 diabetes mellitus with ketoacidosis without coma Condition: Stable Disposition: ADMITTED INPATIENT Admitting Provider: Hospitalist Unit Admitted: [facility]
[2017-02-11 13:56] LABS: APPEARANCE,URINE SLIGHTLY-CLOUDY; BILIRUBIN,URINE NEGATIVE (NEGATIVE); COLOR,URINE YELLOW; GLUCOSE, URINE >=500 mg/dL (NEGATIVE); KETONES,URINE 80 mg/dL (NEGATIVE); LEUKOCYTE ESTERASE,URINE NEGATIVE (NEGATIVE); NITRITE,URINE NEGATIVE (NEGATIVE); PROTEIN,URINE NEGATIVE (NEGATIVE); URINE SPECIFIC GRAVITY 1.023; UROBILINOGEN,URINE NEGATIVE mg/dL (<2.0)
[2017-02-11 13:59] LABS: ALANINE AMINOTRANSFERASE 69 U/L (21-72); ALBUMIN 5.2 g/dL (3.5-5.0); ALKALINE PHOSPHATASE 131 U/L (38-126); ASPARTATE AMINO TRANSFERASE 35 U/L (17-59); BILIRUBIN,DIRECT 0.5 mg/dL (0.0-0.4); BILIRUBIN,TOTAL 0.6 mg/dL (0.2-1.3); BLOOD UREA NITROGEN 27 mg/dL (7-20); CARBON DIOXIDE 15 mmol/L (22-30); CHLORIDE 94 mmol/L (98-107); MAGNESIUM 2.6 mg/dL (1.6-2.3); PHOSPHORUS 5.7 mg/dL (2.5-4.5); POTASSIUM 5.1 mmol/L (3.6-5.0); SODIUM 139.9 mmol/L (137-145)
--- NOTE | 2017-02-11 14:00 | EKG REPORT ---
SEVERITY:- ABNORMAL ECG - SINUS TACHYCARDIA CANDY, CONSIDER BIATRIAL ABNORMALITIES PROBABLE LEFT VENTRICULAR HYPERTROPHY ANTERIOR Q WAVES, POSSIBLY DUE TO LVH : Confirmed by: Fede Toure 11-Feb-2017 14:00:05
[2017-02-11 14:07] LABS: GLUCOSE 519 mg/dL (75-110)
[2017-02-11 14:11] LABS: ANION GAP 31 (5-19)
[2017-02-11] MEDS ORDERED: NORMAL SALINE 1000 ML 1,000 ML IV PRN ×2 (14:42→16:20)
[2017-02-11] MEDS ORDERED: ACETAMINOPHEN 325 MG TABLET PO ONE (15:53)
[2017-02-11] MEDS ORDERED: NORMAL SALINE 100 ML with INSULIN REGULAR, HUMAN 100 UNIT SUBCUT PRN ×2 (16:04)
[2017-02-11] MEDS ORDERED: DEXTROSE 50%-WATER SYRINGE 12.5 GM/25 ML DOSE IV PRN (16:18)
[2017-02-11] MEDS ORDERED: DEXTROSE 40% GEL 15 GM TUBE PO PRN ×3 (16:18→16:27)
[2017-02-11] MEDS ORDERED: GLUCAGON,HUMAN RECOMB 1 MG INJ IM PRN ×2 (16:18→16:27)
[2017-02-11] MEDS ORDERED: DEXTROSE 40% GEL 15 GM TUBE X 2 PO PRN (16:18)
[2017-02-11] MEDS ORDERED: DEXTROSE 50%-WATER SYRINGE 25 GM/50 ML DOSE IV PRN (16:18)
[2017-02-11] MEDS ORDERED: INSULIN, REGULAR 100 UNIT/100 ML NORMAL SALINE IV PRN ×2 (16:19)
[2017-02-11] MEDS ORDERED: ONDANSETRON 4 MG TAB.RAPDIS PO PRN (16:20)
[2017-02-11] MEDS ORDERED: ALBUTEROL SULFATE 0.083% NEB 2.5 MG/3 ML AMPUL NEB PRN (16:20)
[2017-02-11] MEDS ORDERED: ACETAMINOPHEN 325 MG TABLET PO PRN (16:20)
[2017-02-11] MEDS ORDERED: ONDANSETRON HCL INJ/PF 4 MG/2 ML SDV IV PRN (16:20)
[2017-02-11] MEDS ORDERED: NORMAL SALINE 100 ML with INSULIN REGULAR, HUMAN 100 UNIT IV PRN ×2 (16:27)
[2017-02-11] MEDS ORDERED: DEXTROSE 50%-WATER 25 GM/50 ML DISP.SYRIN IV PRN ×2 (16:27)
--- NOTE | 2017-02-11 16:48 | PDOC H&P ---
History of Present Illness Admission Date/PCP: 02/11/17 14:57 Patient complains of: Nausea with elevated blood sugars History of Present Illness: AMPARO PHAN is a 51 year old male with a history of diabetes type 1 who has had previous episodes of diabetic ketoacidosis who presents with a two-week history of nausea and decreased p.o. intake. Patient reports that over the last 2 weeks he has had worsening nausea along with reflux symptoms. He reports that he eats and feels if he is going to vomit shortly after that. He has had also some associated diarrhea and also some esophageal spasms. He has no exertional chest pain. He also has had some low-grade headache but no visual change. He denies having any fevers or chills. He denies any shortness of breath. Denies any melena or bright blood per rectum. Denies any dysuria but has had decreased urinary output over the last several days. The patient reports he has been compliant with his medications however he has not been able to eat as much food as he normally does. Patient was found to have DKA and was admitted for treatment of that. Past Medical History Cardiac Medical History: Reports: Congestive Heart Failure, Hypertension Pulmonary Medical History: Reports: None EENT Medical History: Reports: None Neurological Medical History: Reports: None Endocrine Medical History: Reports: Diabetes Mellitus Type 1 Renal/ Medical History: Reports: None Malignancy Medical History: Reports: None Skin Medical History: Reports: None Psychiatric Medical History: Reports: Tobacco Dependency Traumatic Medical History: Reports: None Hematology: Reports: None Past Surgical History Past Surgical History: Reports: Other - Denies any recent surgery Social History Information Source: Patient Lives with: Family Smoking Status: Current Every Day Smoker Frequency of Alcohol Use: Occasional - Reported history of heavy alcohol use. Hx Recreational Drug Use: No Drugs: Cocaine Hx Prescription Drug Abuse: No - Advance Directive Resuscitation Status: Full Code Family History Family History: DM Family History: Father is alive in his 70s. He has diabetes. Mother is alive in her 70s and has no chronic health problems. Parental Family History Reviewed: Yes Children Family History Reviewed: No Sibling(s) Family History Reviewed.: No Medication/Allergy Allergies/Adverse Reactions: No Known Allergies Allergy (Verified 02/11/17 12:49) Review of Systems Constitutional: ABSENT: chills, fever(s), headache(s), weight gain, weight loss Eyes: ABSENT: visual disturbances Ears: ABSENT: hearing changes Cardiovascular: ABSENT: chest pain, dyspnea on exertion, edema, orthropnea, palpitations Respiratory: ABSENT: cough, hemoptysis Gastrointestinal: PRESENT: diarrhea, nausea, vomiting. ABSENT: hematochezia, melena Genitourinary: ABSENT: dysuria, hematuria Musculoskeletal: ABSENT: joint swelling Integumentary: ABSENT: rash, wounds Neurological: ABSENT: abnormal gait, abnormal speech, confusion, dizziness, focal weakness, syncope Psychiatric: ABSENT: anxiety, depression Endocrine: PRESENT: polydipsia, polyuria. ABSENT: cold intolerance, heat intolerance Hematologic/Lymphatic: ABSENT: easy bleeding, easy bruising Physical Exam Vital Signs: Temp Pulse Resp BP Pulse Ox 98.1 F 116 H 24 H 171/103 H 100 02/11/17 12:52 02/11/17 12:52 02/11/17 16:01 02/11/17 16:01 02/11/17 16:01 General appearance: PRESENT: no acute distress, well-developed, well-nourished Head exam: PRESENT: atraumatic, normocephalic Eye exam: PRESENT: conjunctiva pink, EOMI, PERRLA. ABSENT: scleral icterus Ear exam: PRESENT: normal external ear exam Mouth exam: PRESENT: moist, tongue midline Neck exam: ABSENT: carotid bruit, JVD, lymphadenopathy, thyromegaly Respiratory exam: PRESENT: clear to auscultation baldemar. ABSENT: rales, rhonchi, wheezes Cardiovascular exam: PRESENT: RRR. ABSENT: diastolic murmur, rubs, systolic murmur Pulses: PRESENT: normal dorsalis pedis pul Vascular exam: PRESENT: normal capillary refill GI/Abdominal exam: PRESENT: normal bowel sounds, soft. ABSENT: distended, guarding, mass, organolmegaly, rebound, tenderness Rectal exam: PRESENT: deferred Extremities exam: PRESENT: full ROM. ABSENT: calf tenderness, clubbing, pedal edema Neurological exam: PRESENT: alert, awake, oriented to person, oriented to place , oriented to time, oriented to situation, CN II-XII grossly intact. ABSENT: motor sensory deficit Psychiatric exam: PRESENT: appropriate affect Skin exam: PRESENT: dry, intact, warm. ABSENT: cyanosis, rash Assessment & Plan - Diagnosis (1) Diabetic ketoacidosis Qualifiers: Diabetes mellitus type: type 1 Is this a current diagnosis for this admission?: Yes Plan: Patient has DKA from decreased p.o. intake. Will give IV fluids and start on insulin drip. Will check q. 4 hour chemistries. (2) Nausea & vomiting Is this a current diagnosis for this admission?: Yes Plan: The patient probably has a component of gastroparesis. Will give IV fluids and monitor for now. His continues would consider adding on Reglan. (3) Tobacco abuse Is this a current diagnosis for this admission?: Yes Plan: He is encouraged to quit. - Time Time Spent: 50 to 70 Minutes - Inpatient Certification Medical Necessity: Need For IV Fluids
[2017-02-11 17:52] LABS: BLOOD UREA NITROGEN 22 mg/dL (7-20); CALCIUM 9.3 mg/dL (8.4-10.2); GLUCOSE 373 mg/dL (75-110)
[2017-02-11] MEDS ORDERED: ENOXAPARIN SODIUM INJ 40 MG/0.4 ML DISP.SYRIN SUBCUT ONE (18:00)
[2017-02-11 18:11] LABS: CARBON DIOXIDE 14 mmol/L (22-30); CHLORIDE 105 mmol/L (98-107); POTASSIUM 5.1 mmol/L (3.6-5.0); SODIUM 141.1 mmol/L (137-145)
[2017-02-11] MEDS ORDERED: HYDRALAZINE HCL INJ/PF 20 MG/1 ML SDV IV PRN (18:12)
[2017-02-11 18:17] LABS: ANION GAP 22 (5-19)
[2017-02-11 21:09] LABS: ANION GAP 13 (5-19); BLOOD UREA NITROGEN 22 mg/dL (7-20); CALCIUM 8.6 mg/dL (8.4-10.2); CARBON DIOXIDE 17 mmol/L (22-30); CHLORIDE 105 mmol/L (98-107); GLUCOSE 326 mg/dL (75-110); SODIUM 135.1 mmol/L (137-145)
[2017-02-11 21:16] LABS: POTASSIUM 3.9 mmol/L (3.6-5.0)
[2017-02-11] MEDS ORDERED: FAMOTIDINE 20 MG TABLET PO SCH (22:00)
[2017-02-11] MEDS ORDERED: DEXTROSE 5%-1/2 NORMAL SALINE 1,000 ML IV PRN (22:54)
[2017-02-12 00:54] LABS: ANION GAP 7 (5-19); BLOOD UREA NITROGEN 19 mg/dL (7-20); CALCIUM 8.7 mg/dL (8.4-10.2); CARBON DIOXIDE 21 mmol/L (22-30); CHLORIDE 109 mmol/L (98-107); GLUCOSE 129 mg/dL (75-110); POTASSIUM 3.2 mmol/L (3.6-5.0); SODIUM 137.4 mmol/L (137-145)
[2017-02-12] MEDS ORDERED: POTASSIUM CHLORIDE 10 MEQ TABLET.SA PO ONE (02:00)
[2017-02-12 04:43] LABS: HEMATOCRIT 35.3 % (37.9-51.0); MEAN CORPUSCULAR HEMOGLOBIN 32.3 pg (27.0-33.4); MEAN CORPUSCULAR HGB CONC 34.2 g/dL (32.0-36.0); MEAN CORPUSCULAR VOLUME 94 fl (80-97); PLATELET COUNT 192 10^3/uL (150-450); RED BLOOD COUNT 3.74 10^6/uL (4.35-5.55); RED CELL DISTRIBUTION WIDTH 13.1 % (11.5-14.0); WHITE BLOOD COUNT 6.9 10^3/uL (4.0-10.5)
[2017-02-12 04:45] LABS: HEMOGLOBIN 12.1 g/dL (13.5-17.0)
[2017-02-12 05:05] LABS: ANION GAP 10 (5-19); BLOOD UREA NITROGEN 17 mg/dL (7-20); CALCIUM 8.7 mg/dL (8.4-10.2); CARBON DIOXIDE 21 mmol/L (22-30); CHLORIDE 102 mmol/L (98-107); GLUCOSE 370 mg/dL (75-110); SODIUM 133.2 mmol/L (137-145)
[2017-02-12 05:13] LABS: POTASSIUM 4.1 mmol/L (3.6-5.0)
[2017-02-12 08:35] VITALS: BP 170/96
[2017-02-12] MEDS ORDERED: HUM INSULIN NPH/REG INSULIN HM 100 UNIT/1 ML 3 ML SUBCUT SCH (10:00)
[2017-02-12] MEDS ORDERED: ENOXAPARIN SODIUM INJ 40 MG/0.4 ML DISP.SYRIN SUBCUT SCH (10:00)
--- NOTE | 2017-02-12 14:07 | PDOC DISCHARGE SUMMARY ---
General - Admit/Disc Date/PCP Admission Date/Primary Care Provider: 02/11/17 14:57 Discharge Date: 02/12/17 - Discharge Diagnosis (1) Diabetic ketoacidosis Is this a current diagnosis for this admission?: Yes (2) Nausea & vomiting Is this a current diagnosis for this admission?: Yes (3) Tobacco abuse Is this a current diagnosis for this admission?: Yes - Additional Information Resuscitation Status: Full Code Discharge Diet: Diabetic Discharge Activity: Activity As Tolerated Home Medications: Ferrous Sulfate [Feosol 325 mg Tablet] 325 mg PO DAILY 02/11/17 Insulin NPH Hum/Reg Insulin Hm [Humulin 70-30 Vial] 30 unit SQ Q12 02/11/17 Multivitamin [Tab-A-Eric (Multiple Vitamin) Tablet] 1 tab PO DAILY 02/11/17 History of Present Illness History of Present Illness: AMPARO PHAN is a 51 year old male with a history of diabetes type 1 who has had previous episodes of diabetic ketoacidosis who presents with a two-week history of nausea and decreased p.o. intake. Patient reports that over the last 2 weeks he has had worsening nausea along with reflux symptoms. He reports that he eats and feels if he is going to vomit shortly after that. He has had also some associated diarrhea and also some esophageal spasms. He has no exertional chest pain. He also has had some low-grade headache but no visual change. He denies having any fevers or chills. He denies any shortness of breath. Denies any melena or bright blood per rectum. Denies any dysuria but has had decreased urinary output over the last several days. The patient reports he has been compliant with his medications however he has not been able to eat as much food as he normally does. Patient was found to have DKA and was admitted for treatment of that. Hospital Course Hospital Course: 51-year-old male who presented with diabetic ketoacidosis. The patient has a long history of diabetes and has had multiple admissions for DKA. The patient had problems with some abdominal discomfort as the cause. He was started on IV fluids and insulin drip. He had quick resolution of his acidosis and his anion gap closed. His IV fluids were continued however he was tolerating p.o. well and he was started back on his usual dose of 7030 with good control. Since he was tolerating a diet and his anion gap had resolved it was felt that it was stable for discharge. He improved quicker than expected and was discharged home. Will follow-up in 2 weeks with his primary care doctor. Physical Exam Vital Signs: Temp Pulse Resp BP Pulse Ox 98.1 F 116 H 18 170/96 H 98 02/12/17 08:35 02/12/17 08:35 02/12/17 08:35 02/12/17 08:35 02/12/17 08:35 Intake & Output 02/11/17 02/12/17 02/13/17 06:59 06:59 06:59 Intake Total 1200 Output Total 1250 Balance -50 General appearance: PRESENT: no acute distress Mouth exam: PRESENT: moist, tongue midline Neck exam: ABSENT: JVD Respiratory exam: PRESENT: clear to auscultation baldemar. ABSENT: rales, rhonchi, wheezes Cardiovascular exam: PRESENT: RRR. ABSENT: diastolic murmur, rubs, systolic murmur GI/Abdominal exam: PRESENT: normal bowel sounds, soft. ABSENT: distended, guarding, mass, organolmegaly, rebound, tenderness Extremities exam: ABSENT: calf tenderness, clubbing, pedal edema Neurological exam: PRESENT: alert, awake, oriented to person, oriented to place , oriented to time, oriented to situation, CN II-XII grossly intact. ABSENT: motor sensory deficit Psychiatric exam: PRESENT: appropriate affect Skin exam: PRESENT: dry, intact, warm. ABSENT: cyanosis, rash Results Laboratory Results: 02/12/17 04:30 02/12/17 04:30 02/11/17 02/11/17 02/12/17 17:30 20:25 00:20 WBC RBC Hgb Hct MCV MCH MCHC RDW Plt Count Sodium 141.1 135.1 L 137.4 Potassium 5.1 H 3.9 D 3.2 L Chloride 105 105 109 H Carbon Dioxide 14 L 17 L 21 L Anion Gap 22 H 13 7 BUN 22 H 22 H 19 Creatinine 0.80 0.88 0.60 Est GFR ( Amer) > 60 > 60 > 60 Est GFR (Non-Af Amer) > 60 > 60 > 60 Glucose 373 H 326 H 129 H Calcium 9.3 8.6 8.7 02/12/17 02/12/17 04:30 04:30 WBC 6.9 RBC 3.74 L Hgb 12.1 L D Hct 35.3 L MCV 94 MCH 32.3 MCHC 34.2 RDW 13.1 Plt Count 192 Sodium 133.2 L Potassium 4.1 Chloride 102 Carbon Dioxide 21 L Anion Gap 10 BUN 17 Creatinine 0.69 Est GFR ( Amer) > 60 Est GFR (Non-Af Amer) > 60 Glucose 370 H Calcium 8.7 Qualifiers [place] BEING DISCHARGED WITH ANY OF THE FOLLOWING DIAGNOSIS?: No Plan Discharge Plan: Patient discharged home. Will follow with primary care in 2 weeks. Time Spent: Less than 30 Minutes
== END 2017-02-12 08:54 | disposition home or self-care (01) | DRG 639 ==
LOC: ER 12:48 → EH 14:57
PROVIDERS: ADMIT Internal Medicine; ATTEND Internal Medicine
DX: E10.10 Type 1 diabetes mellitus with ketoacidosis without coma (principal); F17.200 Nicotine dependence, unspecified, uncomplicated; Z79.4 Long term (current) use of insulin; Z83.3 Family history of diabetes mellitus
CPT/HCPCS: 36415; 80048; 80053; 81001; 82803; 82962; 83735; 84100; 84484; 85025; 85027; 93005; 93010; 96361; 96374; 99291; J0360; J1650; J1815; J2405; J7030

== ENCOUNTER 2017-06-08 20:13 | Inpatient (IN) | payer OTHER ==
--- NOTE | 2017-06-08 20:38 | ER Document Report ---
ED Medical Screen (RME) - General Chief Complaint: High Blood Sugar Stated Complaint: BLOOD SUGAR PROBLEM Time Seen by Provider: 06/08/17 20:34 Notes: Patient is a 51-year-old male, past medical history type I diabetic, presents with 2 days of his blood sugars running high. He says he takes his 30 units of 70/30 insulin 2-4 times a day. He is also having a mild diffuse headache. PE: Dry mucous membranes, uncomfortable, tachycardia I have greeted and performed a rapid initial assessment of this patient. A comprehensive ED assessment and evaluation of the patient, analysis of test results and completion of the medical decision making process will be conducted by additional ED providers. TRAVEL OUTSIDE OF THE [place] IN LAST 30 DAYS: No - Related Data Allergies/Adverse Reactions: No Known Allergies Allergy (Verified 06/08/17 20:19) Past Medical History - Past Medical History Cardiac Medical History: Reports: Hx Congestive Heart Failure, Hx Hypertension Endocrine Medical History: Reports: Hx Diabetes Mellitus Type 1 Renal/ Medical History: Reports: Hx Renal Insufficiency - Patient takes an unknown pill for an unknown kidney problem. Denies: Hx Peritoneal Dialysis Past Surgical History: Reports: Other - Denies any recent surgery - Immunizations History of Influenza Vaccine for 11/2016 - 04/2017 Season: No
[2017-06-08] MEDS: NORMAL SALINE 1000 ML 1,000 ML IV PRN ×2 (20:55→21:19)
[2017-06-08 21:03] LABS: ABSOLUTE BASOPHILS # (AUTO) 0.1 10^3/uL (0.0-0.2); ABSOLUTE LYMPHOCYTES (AUTO) 0.9 10^3/uL (0.5-4.7); ABSOLUTE MONOCYTES (AUTO) 0.6 10^3/uL (0.1-1.4); ABSOLUTE NEUT (AUTO) 2.4 10^3/uL (1.7-8.2); BASOPHILS % (AUTO) 1.5 % (0-2); EOSINOPHILS % (AUTO) 0.3 % (0-6); HEMATOCRIT 43.1 % (37.9-51.0); HEMOGLOBIN 14.2 g/dL (13.5-17.0); LYMPHOCYTES % (AUTO) 22.3 % (13-45); MEAN CORPUSCULAR HEMOGLOBIN 32.2 pg (27.0-33.4); MEAN CORPUSCULAR VOLUME 98 fl (80-97); PLATELET COUNT 210 10^3/uL (150-450); RED CELL DISTRIBUTION WIDTH 13.8 % (11.5-14.0); SEGMENTED NEUTROPHILS % (AUTO) 60.9 % (42-78); TOTAL CELLS COUNTED % (AUTO) 100 %; WHITE BLOOD COUNT 3.9 10^3/uL (4.0-10.5)
[2017-06-08 21:18] LABS: VENOUS BLOOD BASE EXCESS -5.9 mmol/L; VENOUS BLOOD HCO3 19.4 mmol/L (20-32); VENOUS BLOOD PCO2 37.6 mmHg (35-63); VENOUS BLOOD PH 7.33 (7.30-7.42)
[2017-06-08 21:19] LABS: ALANINE AMINOTRANSFERASE 89 U/L (21-72); ALBUMIN 4.2 g/dL (3.5-5.0); ALKALINE PHOSPHATASE 157 U/L (38-126); ASPARTATE AMINO TRANSFERASE 132 U/L (17-59); BILIRUBIN,DIRECT 0.5 mg/dL (0.0-0.4); BILIRUBIN,TOTAL 0.5 mg/dL (0.2-1.3); BLOOD UREA NITROGEN 22 mg/dL (7-20); CALCIUM 9.1 mg/dL (8.4-10.2); POTASSIUM 4.6 mmol/L (3.6-5.0)
[2017-06-08 21:24] LABS: CARBON DIOXIDE 17 mmol/L (22-30); CHLORIDE 90 mmol/L (98-107); SODIUM 131.9 mmol/L (137-145)
[2017-06-08 21:30] LABS: ANION GAP 25 (5-19)
[2017-06-08 21:31] LABS: GLUCOSE 706 mg/dL (75-110)
[2017-06-08 21:33] LABS: APPEARANCE,URINE CLEAR; BILIRUBIN,URINE NEGATIVE (NEGATIVE); COLOR,URINE COLORLESS; GLUCOSE, URINE >=500 mg/dL (NEGATIVE); KETONES,URINE 80 mg/dL (NEGATIVE); LEUKOCYTE ESTERASE,URINE NEGATIVE (NEGATIVE); NITRITE,URINE NEGATIVE (NEGATIVE); PROTEIN,URINE NEGATIVE (NEGATIVE); URINE SPECIFIC GRAVITY 1.022; UROBILINOGEN,URINE NEGATIVE mg/dL (<2.0)
[2017-06-08] MEDS ORDERED: NORMAL SALINE 1000 ML 1,000 ML IV PRN (21:45)
[2017-06-08] MEDS ORDERED: INSULIN REG, HUMAN 100 UNIT/ML 3 ML VIAL (PYX) IV ONE (21:45)
--- NOTE | 2017-06-08 21:45 | ER Document Report ---
ED General - General Chief Complaint: High Blood Sugar Stated Complaint: BLOOD SUGAR PROBLEM Time Seen by Provider: 06/08/17 20:34 Mode of Arrival: Ambulatory Information source: Patient Notes: 51-year-old male history of type 1 diabetes multiple previous episodes of DKA presents with complaints of hyperglycemia. Patient notes he has been having a headache nausea. Patient's blood sugar was noted to be elevated at home, it is read as high in the emergency department upon arrival. Patient was last admitted in DKA proximally 4 months ago patient is on 70/30 insulin and taking as prescribed TRAVEL OUTSIDE OF THE [place] IN LAST 30 DAYS: No - HPI Onset: Just prior to arrival Onset/Duration: Sudden Quality of pain: Achy Severity: Moderate Pain Level: 2 Associated symptoms: Nausea Exacerbated by: Other Relieved by: Denies Similar symptoms previously: Yes Recently seen / treated by doctor: Yes - Related Data Allergies/Adverse Reactions: No Known Allergies Allergy (Verified 06/08/17 20:19) Past Medical History - Social History Smoking Status: Current Every Day Smoker Cigarette use (# per day): Yes Chew tobacco use (# tins/day): No Smoking Education Provided: No Frequency of alcohol use: None Drug Abuse: None Family History: DM Patient has suicidal ideation: No Patient has homicidal ideation: No - Past Medical History Cardiac Medical History: Reports: Hx Congestive Heart Failure, Hx Hypertension Endocrine Medical History: Reports: Hx Diabetes Mellitus Type 1 Renal/ Medical History: Reports: Hx Renal Insufficiency - Patient takes an unknown pill for an unknown kidney problem. Denies: Hx Peritoneal Dialysis Past Surgical History: Reports: Other - Denies any recent surgery Review of Systems - Review of Systems Notes: REVIEW OF SYSTEMS: CONSTITUTIONAL : Admits to chills EENT: Denies eye, ear, throat, or mouth pain or symptoms. Denies nasal or sinus congestion or discharge. Denies throat, tongue, or mouth swelling or difficulty swallowing. CARDIOVASCULAR: Denies chest pain. Denies palpitations or racing or irregular heart beat. Denies ankle edema. RESPIRATORY: Denies cough, cold, or chest congestion. Denies shortness of breath, difficulty breathing, or wheezing. GASTROINTESTINAL: Admits to nausea GENITOURINARY: Denies difficulty urinating, painful urination, burning, frequency, blood in urine, or discharge. MUSCULOSKELETAL: Denies back or neck pain or stiffness. Denies joint pain or swelling. SKIN: Denies rash, lesions or sores. HEMATOLOGIC : Denies easy bruising or bleeding. LYMPHATIC: Denies swollen, enlarged glands. NEUROLOGICAL: Admits to headache PSYCHIATRIC: Denies anxiety or stress. Denies depression, suicidal ideation, or homicidal ideation. ALL OTHER SYSTEMS REVIEWED AND NEGATIVE. Dictation was performed using [employer] voice recognition software PHYSICAL EXAMINATION: GENERAL: Ill-appearing male HEAD: Atraumatic, normocephalic. EYES: Pupils equal round and reactive to light, extraocular movements intact, sclera anicteric, conjunctiva are normal. ENT: Nares patent, oropharynx clear without exudates. Moist mucous membranes. NECK: Normal range of motion, supple without lymphadenopathy LUNGS: Breath sounds clear to auscultation bilaterally and equal. No wheezes rales or rhonchi. HEART: Intermittently tachycardic ABDOMEN: Soft, nontender, nondistended abdomen. No guarding, no rebound. No masses appreciated. Musculoskeletal: Normal range of motion, no pitting or edema. No cyanosis. NEUROLOGICAL: Cranial nerves grossly intact. Normal speech, normal gait. Normal sensory, motor exams PSYCH: Normal mood, normal affect. SKIN: Warm, Dry, normal turgor, no rashes or lesions noted. Course - Re-evaluation Re-evalutation: 06/08/17 21:51 Patient's blood sugars 706, his creatinine is normal BUN is normal, there is a an anion gap noted, there is a 80+ ketones in the urine, patient's VBG notes no significant acidosis however I do believe the patient is going into DKA, he will be given insulin will be started on insulin drip and will be given IV fluids and admitted to the hospitalist service for further care - Laboratory Result Diagrams: 06/08/17 20:49 06/08/17 20:49 Laboratory results interpreted by me: 06/08/17 06/08/17 06/08/17 20:49 20:49 20:49 WBC 3.9 L MCV 98 H Monocytes % 15.0 H VBG HCO3 19.4 L Sodium 131.9 L Chloride 90 L Carbon Dioxide 17 L Anion Gap 25 H BUN 22 H Glucose 706 H* Direct Bilirubin 0.5 H AST 132 H ALT 89 H Alkaline Phosphatase 157 H Urine Glucose (UA) Urine Ketones 06/08/17 21:15 WBC MCV Monocytes % VBG HCO3 Sodium Chloride Carbon Dioxide Anion Gap BUN Glucose Direct Bilirubin AST ALT Alkaline Phosphatase Urine Glucose (UA) >=500 H Urine Ketones 80 H Critical Care Note - Critical Care Note Total time excluding time spent on procedures (mins): 35 Comments: 35 minutes of critical care time spent in direct contact evaluating and reevaluating the patient, treating symptoms, reviewing labs and studies and speaking with family and consultants excluding any procedures Discharge - Discharge Clinical Impression: DKA (diabetic ketoacidoses) Qualifiers: Diabetes mellitus type: type 1 Diabetes mellitus complication detail: without coma Qualified Code(s): E10.10 - Type 1 diabetes mellitus with ketoacidosis without coma Nausea & vomiting Qualifiers: Vomiting type: unspecified Vomiting Intractability: non-intractable Qualified Code(s): R11.2 - Nausea with vomiting, unspecified Condition: Stable Disposition: ADMITTED INPATIENT Admitting Provider: Hospitalist Unit Admitted: [facility]
[2017-06-08] MEDS ORDERED: ACETAMINOPHEN 325 MG TABLET ONE (23:21)
[2017-06-09 01:25] LABS: ALANINE AMINOTRANSFERASE 67 U/L (21-72); ALBUMIN 2.7 g/dL (3.5-5.0); ALKALINE PHOSPHATASE 107 U/L (38-126); ANION GAP 16 (5-19); ASPARTATE AMINO TRANSFERASE 68 U/L (17-59); BILIRUBIN,DIRECT 0.2 mg/dL (0.0-0.4); BILIRUBIN,TOTAL 0.2 mg/dL (0.2-1.3); BLOOD UREA NITROGEN 17 mg/dL (7-20); CARBON DIOXIDE 17 mmol/L (22-30); CHLORIDE 108 mmol/L (98-107); GLUCOSE 319 mg/dL (75-110); POTASSIUM 3.7 mmol/L (3.6-5.0); SODIUM 140.7 mmol/L (137-145); TOTAL PROTEIN 5.1 g/dL (6.3-8.2)
[2017-06-09] MEDS ORDERED: ONDANSETRON HCL INJ/PF 4 MG/2 ML SDV IV PRN (02:02)
[2017-06-09] MEDS ORDERED: INSULIN LISPRO 100 UNIT/ML 3 ML VIAL SUBCUT PRN (02:10)
[2017-06-09] MEDS ORDERED: DEXTROSE 40% GEL 15 GM TUBE PO PRN ×2 (02:10)
[2017-06-09] MEDS ORDERED: DEXTROSE 50%-WATER 25 GM/50 ML DISP.SYRIN IV PRN ×2 (02:10)
[2017-06-09] MEDS ORDERED: GLUCAGON,HUMAN RECOMB 1 MG INJ IM PRN (02:10)
--- NOTE | 2017-06-09 02:22 | PDOC H&P ---
History of Present Illness Admission Date/PCP: 06/08/17 21:54 History of Present Illness: AMPARO PHAN is a 51 year old male patient who is known case of insulin-dependent diabetes mellitus presented with nausea, vomiting and hyperglycemia. Of note patient is well-known to the hospitalist service for his frequent admission for DKA. His initial blood work shows hyperglycemia with blood sugar level of 706, anion gap of 25, urine ketone of 18 and calcium level of 7. After he was given IV regular insulin his blood test blood sugar level is 319 and anion gap normalized. Patient denies any precipitating factor and no omission of his daily NPH insulin. He does not have chills, fever, chest pain, cough, palpitation, diaphoresis, abdominal pain or diarrhea. No urinary complaints. Past Medical History Cardiac Medical History: Reports: Congestive Heart Failure, Hypertension Endocrine Medical History: Reports: Diabetes Mellitus Type 1 Past Surgical History Past Surgical History: Reports: Other - Denies any recent surgery Social History Smoking Status: Current Every Day Smoker Frequency of Alcohol Use: None Hx Recreational Drug Use: No Drugs: None Hx Prescription Drug Abuse: No Family History Family History: DM, Hypertension Parental Family History Reviewed: Yes Children Family History Reviewed: Yes Sibling(s) Family History Reviewed.: Yes Medication/Allergy Home Medications: Ferrous Sulfate [Feosol 325 mg Tablet] 325 mg PO DAILY 02/11/17 Insulin NPH Hum/Reg Insulin Hm [Humulin 70-30 Vial] 30 unit SQ Q12 02/11/17 Multivitamin [Tab-A-Eric (Multiple Vitamin) Tablet] 1 tab PO DAILY 02/11/17 Allergies/Adverse Reactions: No Known Allergies Allergy (Verified 06/08/17 20:19) Review of Systems Constitutional: PRESENT: as per HPI Eyes: PRESENT: as per HPI Cardiovascular: PRESENT: as per HPI Respiratory: PRESENT: as per HPI Gastrointestinal: PRESENT: as per HPI Neurological: PRESENT: as per HPI Psychiatric: PRESENT: as per HPI Physical Exam Vital Signs: Temp Pulse Resp BP Pulse Ox 24 H 132/80 H 97 06/09/17 01:01 06/09/17 01:01 06/09/17 01:01 Intake & Output 06/07/17 06/08/17 06/09/17 06:59 06:59 06:59 Weight 49.9 kg General appearance: PRESENT: mild distress Head exam: PRESENT: atraumatic Mouth exam: PRESENT: dry mucosa Respiratory exam: PRESENT: clear to auscultation baldemar. ABSENT: rales, rhonchi, wheezes Cardiovascular exam: PRESENT: RRR. ABSENT: diastolic murmur, rubs, systolic murmur GI/Abdominal exam: PRESENT: normal bowel sounds, soft. ABSENT: distended, guarding, mass, organolmegaly, rebound, tenderness Results Laboratory Results: 06/09/17 01:00 06/09/17 01:00 Sodium 140.7 Potassium 3.7 Chloride 108 H Carbon Dioxide 17 L Anion Gap 16 BUN 17 Creatinine 0.64 Est GFR ( Amer) > 60 Est GFR (Non-Af Amer) > 60 Glucose 319 H Calcium 7.0 L* Total Bilirubin 0.2 AST 68 H ALT 67 Alkaline Phosphatase 107 Total Protein 5.1 L Albumin 2.7 L Assessment & Plan - Diagnosis (1) Diabetic ketoacidosis Qualifiers: Diabetes mellitus type: type 1 Diabetes mellitus complication detail: without coma Qualified Code(s): E10.10 - Type 1 diabetes mellitus with ketoacidosis without coma Is this a current diagnosis for this admission?: Yes Plan: Since his blood sugar is trending down and his anion gap is normalized at I think there is no need for insulin drip this patient. I will resume his home NPH insulin and also I will put him on sliding scale. We will put him on normal saline. - Time Time Spent: 30 to 50 Minutes - Inpatient Certification Medical Necessity: Need For IV Fluids
[2017-06-09 03:34] LABS: ANION GAP 17 (5-19); BLOOD UREA NITROGEN 15 mg/dL (7-20); CALCIUM 7.6 mg/dL (8.4-10.2); CARBON DIOXIDE 16 mmol/L (22-30); CHLORIDE 104 mmol/L (98-107); POTASSIUM 4.4 mmol/L (3.6-5.0); SODIUM 136.7 mmol/L (137-145)
[2017-06-09 03:41] LABS: GLUCOSE 412 mg/dL (75-110)
[2017-06-09] MEDS ORDERED: INSULIN LISPRO 100 UNIT/ML 3 ML VIAL SUBCUT ONE (04:15)
[2017-06-09] MEDS: NORMAL SALINE 1000 ML 1,000 ML IV PRN (04:20)
[2017-06-09] MEDS: LANSOPRAZOLE 30 MG TAB.RAP.DR PO SCH (05:43)
[2017-06-09] MEDS ORDERED: INSULIN NPH (ISOPHANE), HUMAN 100 UNIT/ML 3 ML SUBCUT SCH (08:00)
[2017-06-09] MEDS ORDERED: ACETAMINOPHEN 325 MG TABLET ONE (08:01)
[2017-06-09] MEDS ORDERED: ACETAMINOPHEN 325 MG TABLET PO PRN (09:41)
--- NOTE | 2017-06-09 10:29 | PDOC PROGRESS REPORT ---
Subjective Progress Note for:: 06/09/17 Subjective:: Patient states that he takes Humulin 70/30 30 units in the morning, 30 units in the afternoon and he takes 30 units extra when not feeling well. Patient was approached about applying for Medicaid since the marketing sales representative has just gotten out of the room and he had kicked her out. He expressed that the problem was that she wanted for him to sign and he could not see what he was signing. Patient was asked if he has seen an community service officer and he replied that he uses glasses. He also continues having stomach pain. Nurse reported headache earlier. Review of systems All organ systems evaluated and negative except as subjective All significant diagnostics and laboratories have been reviewed Reason For Visit: DKA Physical Exam Vital Signs: Temp Pulse Resp BP Pulse Ox 97.6 F 64 20 150/86 H 99 06/09/17 07:24 06/09/17 07:24 06/09/17 07:24 06/09/17 07:24 06/09/17 07:24 Intake & Output 06/08/17 06/09/17 06/10/17 06:59 06:59 06:59 Intake Total 166 Balance 166 Weight 49.6 kg General appearance: PRESENT: no acute distress, thin, other - ketone smell Head exam: PRESENT: atraumatic, normocephalic Eye exam: PRESENT: conjunctiva pink, EOMI, PERRLA Ear exam: PRESENT: normal external ear exam Mouth exam: PRESENT: moist Neck exam: PRESENT: full ROM. ABSENT: JVD, lymphadenopathy, tenderness, thyromegaly Respiratory exam: PRESENT: clear to auscultation baldemar Cardiovascular exam: PRESENT: RRR. ABSENT: diastolic murmur, systolic murmur Vascular exam: PRESENT: normal capillary refill GI/Abdominal exam: PRESENT: normal bowel sounds, soft, tenderness - in epigastric area Extremities exam: PRESENT: full ROM. ABSENT: pedal edema Musculoskeletal exam: PRESENT: ambulatory Neurological exam: PRESENT: alert, awake, oriented to person, oriented to place , oriented to time, oriented to situation, CN II-XII grossly intact Skin exam: PRESENT: intact, normal color Results Laboratory Results: 06/09/17 03:06 06/09/17 06/09/17 06/09/17 01:00 03:06 03:06 Sodium 140.7 136.7 L Potassium 3.7 4.4 Chloride 108 H 104 Carbon Dioxide 17 L 16 L Anion Gap 16 17 BUN 17 15 Creatinine 0.64 0.61 Est GFR ( Amer) > 60 > 60 Est GFR (Non-Af Amer) > 60 > 60 Glucose 319 H 412 H* Calcium 7.0 L* 7.6 L Ionized Calcium Ashley 1.05 L Total Bilirubin 0.2 AST 68 H ALT 67 Alkaline Phosphatase 107 Total Protein 5.1 L Albumin 2.7 L Assessment & Plan - Diagnosis (1) Diabetic ketoacidosis Qualifiers: Diabetes mellitus type: type 1 Diabetes mellitus complication detail: without coma Qualified Code(s): E10.10 - Type 1 diabetes mellitus with ketoacidosis without coma Is this a current diagnosis for this admission?: Yes Plan: Continue IV fluids, to place patient on Lantus, pre-meal Humalog, and will adjust Humalog sliding scale. Continue bedside glucose before meals and at bedtime. (2) Nausea & vomiting Qualifiers: Vomiting type: unspecified Vomiting Intractability: non-intractable Qualified Code(s): R11.2 - Nausea with vomiting, unspecified Is this a current diagnosis for this admission?: Yes Plan: Likely due to gastroparesis. Patient will be placed on Reglan some follow-up response (3) Abnormal liver function test Is this a current diagnosis for this admission?: Yes Plan: Likely due to fatty liver disease - Time Time Spent with patient: 15-24 minutes Medications reviewed and adjusted accordingly: Yes Anticipated discharge: Home Within: within 48 hours - Inpatient Certification Based on my medical assessment, after consideration of the patient's comorbidities, presenting symptoms, or acuity I expect that the services needed warrant INPATIENT care.: Yes I certify that my determination is in accordance with my understanding of Medicare's requirements for reasonable and necessary INPATIENT services [42 CFR 412.3e].: Yes Medical Necessity: Need Close Monitoring Due to Risk of Patient Decompensation, Need For IV Fluids
[2017-06-09] MEDS: ENOXAPARIN SODIUM INJ 40 MG/0.4 ML DISP.SYRIN SUBCUT SCH (11:36)
[2017-06-09] MEDS: METOCLOPRAMIDE HCL 10 MG TABLET PO SCH ×3 (11:36→21:50)
[2017-06-09] MEDS: DOCUSATE SODIUM 100 MG CAPSULE PO SCH ×2 (11:36→17:18)
[2017-06-09] MEDS: INSULIN GLARGINE,HUM.REC.ANLOG 300 UNIT/3 ML INSULN.PEN SUBCUT SCH ×2 (11:49→21:50)
[2017-06-09] MEDS: INSULIN LISPRO 100 UNIT/ML 3 ML VIAL SUBCUT SCH ×2 (11:50→17:11)
[2017-06-09] MEDS: OXYCODONE-ACETAMINOPHEN 5-325 MG TABLET PO PRN ×3 (12:01→21:49)
[2017-06-09] MEDS: INSULIN LISPRO 100 UNIT/ML 3 ML VIAL SUBCUT PRN ×2 (17:18→21:50)
[2017-06-10] MEDS: NORMAL SALINE 1000 ML 1,000 ML IV PRN ×2 (00:20→09:08)
[2017-06-10] MEDS: LANSOPRAZOLE 30 MG TAB.RAP.DR PO SCH (05:34)
[2017-06-10 06:23] LABS: ABSOLUTE BASOPHILS # (AUTO) 0.1 10^3/uL (0.0-0.2); ABSOLUTE EOSINOPHILS # (AUTO) 0.1 10^3/uL (0.0-0.6); ABSOLUTE LYMPHOCYTES (AUTO) 1.1 10^3/uL (0.5-4.7); ABSOLUTE MONOCYTES (AUTO) 0.7 10^3/uL (0.1-1.4); ABSOLUTE NEUT (AUTO) 3.8 10^3/uL (1.7-8.2); EOSINOPHILS % (AUTO) 1.8 % (0-6); HEMATOCRIT 31.4 % (37.9-51.0); LYMPHOCYTES % (AUTO) 18.6 % (13-45); MEAN CORPUSCULAR HEMOGLOBIN 32.9 pg (27.0-33.4); MEAN CORPUSCULAR HGB CONC 35.3 g/dL (32.0-36.0); MONOCYTES % (AUTO) 12.8 % (3-13); PLATELET COUNT 175 10^3/uL (150-450); RED BLOOD COUNT 3.37 10^6/uL (4.35-5.55); RED CELL DISTRIBUTION WIDTH 13.7 % (11.5-14.0); SEGMENTED NEUTROPHILS % (AUTO) 65.8 % (42-78); TOTAL CELLS COUNTED % (AUTO) 100 %; WHITE BLOOD COUNT 5.7 10^3/uL (4.0-10.5)
[2017-06-10 06:25] LABS: HEMOGLOBIN 11.1 g/dL (13.5-17.0); MEAN CORPUSCULAR VOLUME 93 fl (80-97)
[2017-06-10 06:45] LABS: ANION GAP 9 (5-19); BLOOD UREA NITROGEN 11 mg/dL (7-20); CALCIUM 8.1 mg/dL (8.4-10.2); CARBON DIOXIDE 26 mmol/L (22-30); CHLORIDE 104 mmol/L (98-107); GLUCOSE 111 mg/dL (75-110); POTASSIUM 3.7 mmol/L (3.6-5.0); SODIUM 138.7 mmol/L (137-145)
[2017-06-10] MEDS: METOCLOPRAMIDE HCL 10 MG TABLET PO SCH ×2 (07:39→11:47)
[2017-06-10] MEDS: INSULIN LISPRO 100 UNIT/ML 3 ML VIAL SUBCUT SCH ×2 (07:39→11:39)
[2017-06-10] MEDS: OXYCODONE-ACETAMINOPHEN 5-325 MG TABLET PO PRN ×2 (07:39→12:03)
[2017-06-10] MEDS: INSULIN GLARGINE,HUM.REC.ANLOG 300 UNIT/3 ML INSULN.PEN SUBCUT SCH (09:05)
[2017-06-10] MEDS: ENOXAPARIN SODIUM INJ 40 MG/0.4 ML DISP.SYRIN SUBCUT SCH (09:06)
[2017-06-10] MEDS: DOCUSATE SODIUM 100 MG CAPSULE PO SCH (09:10)
[2017-06-10 12:54] VITALS: BP 168/88
--- NOTE | 2017-06-11 06:11 | PDOC DISCHARGE SUMMARY ---
General - Admit/Disc Date/PCP Admission Date/Primary Care Provider: 06/08/17 21:54 Discharge Date: 06/10/17 - Discharge Diagnosis (1) Diabetic ketoacidosis Is this a current diagnosis for this admission?: Yes (2) Nausea & vomiting Is this a current diagnosis for this admission?: Yes (3) Abnormal liver function test Is this a current diagnosis for this admission?: Yes (4) HTN (hypertension) Is this a current diagnosis for this admission?: Yes - Additional Information Discharge Diet: Cardiac, Diabetic Discharge Activity: Activity As Tolerated Prescriptions: Metoclopramide HCl [Reglan 10 mg Tablet] 10 mg PO ACHS #120 tablet Home Medications: Insulin NPH Hum/Reg Insulin Hm [Humulin 70-30 Vial] 30 unit SQ Q12 02/11/17 Metoclopramide HCl [Reglan 10 mg Tablet] 10 mg PO ACHS #120 tablet 06/10/17 History of Present Illness History of Present Illness: AMPARO PHAN is a 51 year old male patient who is known case of insulin-dependent diabetes mellitus presented with nausea, vomiting and hyperglycemia. Of note patient is well-known to the hospitalist service for his frequent admission for DKA. His initial blood work showed hyperglycemia with blood sugar level of 706, anion gap of 25, urine ketone of 18 and calcium level of 7. After he was given IV regular insulin his blood test blood sugar level is 319 and anion gap normalized. Patient denied any precipitating factor and no omission of his daily NPH insulin. He denied chills, fever, chest pain, cough, palpitation, diaphoresis, abdominal pain or diarrhea. No urinary complaints. Hospital Course Hospital Course: Patient was admitted under the hospitalist service. We continued hydration. Patient was placed on Reglan with further improvement of nausea and was discharged on this medication. It appears that nausea relates to diabetic gastroparesis in the setting of poorly controlled diabetes. Patient uses insulin 70/30 twice a day. He states that on occasions he may get a third dose. While in-house he was placed on long-acting Lantus, pre-meal NovoLog and Humalog sliding scale with further improvement. Patient was seen by nurse educator. On discharge patient will resume same regimen due to unwillingness to try some other avenues and lack of insurance. Liver function tests were slightly elevated which likely relate due to fatty liver. Case management approached patient for the possibility of having him qualified for Medicaid but he kicked out the agent from the room. Anticipate that patient may return back under similar circumstances. At the time of discharge patient was stable Physical Exam Vital Signs: Temp Pulse Resp BP Pulse Ox 98.4 F 63 20 173/75 H 99 06/10/17 08:07 06/10/17 08:07 06/10/17 08:07 06/10/17 08:07 06/10/17 08:07 Intake & Output 06/09/17 06/10/17 06/11/17 06:59 06:59 06:59 Intake Total 166 3785 Output Total 400 Balance 166 3385 Weight 49.6 kg 47.9 kg General appearance: PRESENT: no acute distress, cooperative, thin Head exam: PRESENT: atraumatic, normocephalic Eye exam: PRESENT: conjunctiva pink, EOMI, PERRLA Ear exam: PRESENT: normal external ear exam Mouth exam: PRESENT: moist Neck exam: PRESENT: full ROM. ABSENT: JVD, lymphadenopathy, tenderness Respiratory exam: PRESENT: clear to auscultation baldemar Cardiovascular exam: PRESENT: RRR. ABSENT: diastolic murmur, systolic murmur Vascular exam: PRESENT: normal capillary refill GI/Abdominal exam: PRESENT: normal bowel sounds, soft. ABSENT: tenderness Extremities exam: PRESENT: full ROM. ABSENT: pedal edema Musculoskeletal exam: PRESENT: ambulatory Neurological exam: PRESENT: alert, awake, oriented to person, oriented to place , oriented to time, oriented to situation, CN II-XII grossly intact Psychiatric exam: PRESENT: unusual affect Skin exam: PRESENT: intact, normal color Results Laboratory Results: 06/10/17 05:14 06/10/17 05:14 06/10/17 06/10/17 05:14 05:14 WBC 5.7 RBC 3.37 L Hgb 11.1 L D Hct 31.4 L MCV 93 D MCH 32.9 MCHC 35.3 RDW 13.7 Plt Count 175 Seg Neutrophils % 65.8 Lymphocytes % 18.6 Monocytes % 12.8 Eosinophils % 1.8 Basophils % 1.0 Absolute Neutrophils 3.8 Absolute Lymphocytes 1.1 Absolute Monocytes 0.7 Absolute Eosinophils 0.1 Absolute Basophils 0.1 Sodium 138.7 Potassium 3.7 Chloride 104 Carbon Dioxide 26 Anion Gap 9 BUN 11 Creatinine 0.68 Est GFR ( Amer) > 60 Est GFR (Non-Af Amer) > 60 Glucose 111 H Calcium 8.1 L Magnesium 1.8 Qualifiers - * PATIENT BEING DISCHARGED WITH ANY OF THE FOLLOWING DIAGNOSIS: No Plan Discharge Plan: Discharge home. Patient advised to follow-up at the Care clinic Time Spent: Less than 30 Minutes
== END 2017-06-10 12:32 | disposition home or self-care (01) | DRG 639 ==
LOC: ER 20:13 → EH 21:54 → 3W 06-09 02:44
PROVIDERS: ADMIT Internal Medicine; ATTEND Internal Medicine
DX: E10.10 Type 1 diabetes mellitus with ketoacidosis without coma (principal); K31.84 Gastroparesis; K76.0 Fatty (change of) liver, not elsewhere classified; I11.0 Hypertensive heart disease with heart failure; I50.9 Heart failure, unspecified; E10.43 Type 1 diabetes mellitus with diabetic autonomic (poly)neuropathy; F17.210 Nicotine dependence, cigarettes, uncomplicated; Z79.4 Long term (current) use of insulin; Z79.899 Other long term (current) drug therapy; Z83.3 Family history of diabetes mellitus; Z82.49 Family history of ischemic heart disease and other diseases of the circulatory system
CPT/HCPCS: 36415; 80048; 80053; 81001; 82330; 82803; 82962; 83735; 85025; 96360; 99285; J1650; J1815; J7030

== ENCOUNTER 2017-06-17 19:10 | Emergency (ER) | payer OTHER ==
[2017-06-17] MEDS ORDERED: NORMAL SALINE 1000 ML 1,000 ML IV ONE ×2 (19:39→21:20)
--- NOTE | 2017-06-17 20:12 | ER Document Report ---
ED General - General Mode of Arrival: Medic Information source: Patient TRAVEL OUTSIDE OF THE [place] IN LAST 30 DAYS: No <ALPA RIVERA - Last Filed: 06/18/17 01:58> <ELLIOT SOLANO - Last Filed: 06/18/17 02:45> - General Stated Complaint: GENERAL SICKNESS Time Seen by Provider: 06/17/17 19:37 Notes: Patient is a 51 year old male with a history of type 1 diabetes and multiple previous episodes of DKA presents to the emergency department complaining of general malaise and a headache with associated symptoms of a productive cough and nausea. Patient states he wanted to come to the emergency department due to feeling similar to when he was last admitted for DKA. Patient was admitted from 06/08/2017-06/10/2017. Patient states he has not felt 100% right since he was discharged from the hospital. Patient denies any chest pain. Patients mentions recent swelling in his legs over the last 4 days and further states the swelling went down yesterday due to him wearing compression socks. Patient also expresses a concern for worsening vision. He states over the last couple of days he felt like his vision has progressively declined. Patient states he has been taking his insulin shots but has not yet been to the [facility] to get set up with a primary care physician. (ALPA RIVERA) On his most recent admission last week, the case maker tried to talk with him about qualifying for Medicaid and he kicked her out of the room. The patient states is because she was trying to get him to sign some paperwork, and his vision is so poor he cannot see well enough to sign so we scribbled all over the paper and they had a confrontation at which point he told her to get out of the room. He is unclear over how long of period of time his vision has been deteriorating. Due to the strong ketone odor on his breath, the relatively normal blood sugars and normal serum CO2, I asked about how much he is been eating today, and he was vague in his response and states he been eating some. The most recent admission shows the patient being discharged with medication for his diabetes but not for his high blood pressure. During an admission last year, he was discharged on lisinopril 10 mg daily. He is unclear about how long it is been since he has taken any blood pressure medication. (ELLIOT SOLANO) - Related Data Allergies/Adverse Reactions: No Known Allergies Allergy (Verified 06/08/17 20:19) Past Medical History - General Information source: Patient, [facility] Records - Social History Smoking Status: Current Every Day Smoker Cigarette use (# per day): Yes Chew tobacco use (# tins/day): No Smoking Education Provided: No Frequency of alcohol use: Heavy - Right upper lobe lobectomy Drug Abuse: None Family History: DM, Hypertension - Past Medical History Cardiac Medical History: Reports: Hx Congestive Heart Failure, Hx Hypertension Endocrine Medical History: Reports: Hx Diabetes Mellitus Type 1 Renal/ Medical History: Reports: Hx Renal Insufficiency - Patient takes an unknown pill for an unknown kidney problem Past Surgical History: Reports: Other - Denies any recent surgery <ALPA RIVERA - Last Filed: 06/18/17 01:58> Review of Systems - Review of Systems Constitutional: See HPI, Malaise EENT: No symptoms reported Cardiovascular: No symptoms reported Respiratory: No symptoms reported Gastrointestinal: See HPI, Nausea Genitourinary: No symptoms reported Male Genitourinary: No symptoms reported Musculoskeletal: No symptoms reported Skin: No symptoms reported Hematologic/Lymphatic: No symptoms reported Neurological/Psychological: See HPI, Headaches -: Yes All other systems reviewed and negative <ALPA RIVERA - Last Filed: 06/18/17 01:58> Physical Exam - General General appearance: Appears well, Other - Appears sleepy. In distress: None - HEENT Head: Normocephalic, Atraumatic Eyes: Normal Conjunctiva: Normal Extraocular movements intact: Yes Pupils: PERRL Mucous membranes: Other - Stong ketone odor. Neck: Normal - Respiratory Respiratory status: No respiratory distress Chest status: Nontender Breath sounds: Productive cough Chest palpation: Normal - Cardiovascular Rhythm: Regular Heart sounds: Normal auscultation Murmur: No Friction rub: No Gallop: None auscultated - Abdominal Inspection: Normal - Back Back: Normal - Extremities General upper extremity: Normal ROM. No: Edema General lower extremity: Normal ROM. No: Edema - Neurological Neuro grossly intact: Yes Cognition: Normal Orientation: AAOx4 Frankie Coma Scale Eye Opening: Spontaneous Frankie Coma Scale Verbal: Oriented Frankie Coma Scale Motor: Obeys Commands Frankie Coma Scale Total: 15 Speech: Normal - Psychological Associated symptoms: Normal affect, Normal mood - Skin Skin Temperature: Warm Skin Moisture: Dry Skin Color: Normal <ALPA RIVERA - Last Filed: 06/18/17 01:58> - Vital signs Vitals: Temp Resp Pulse Ox 98.5 F 20 99 06/17/17 19:22 06/17/17 19:22 06/17/17 19:22 Course - Laboratory Result Diagrams: 06/17/17 20:05 06/17/17 20:05 <ALPA RIVERA - Last Filed: 06/18/17 01:58> - Laboratory Result Diagrams: 06/17/17 20:05 06/18/17 01:44 - EKG Interpretation by [place] EKG shows normal: Sinus rhythm, [place], Intervals, QRS Complexes. abnormal: ST-T Waves - Anterolateral ST depression Rate: Normal - 94 Rhythm: NSR Voltage: Consistant with LVH When compared to previous EKG there are: Changes noted - Previous EKG showed tall peak T waves throughout, there are none of those today. He does have anterolateral ST depression which was not a finding on previous EKGs. He has not had an EKG done here on the last few admissions. <ELLIOT SOLANO - Last Filed: 06/18/17 02:45> - Re-evaluation Re-evalutation: 06/18/17 01:02 EMS picked up the patient with him complaining of feeling sick for 3-4 days. An Accu-Chek done showed a reading of 184. Shortly after arrival an Accu-Chek was done in the emergency room that was over 300. When his serum chemistries came back the blood sugar was 98. When he finally provided a urine specimen after 3 L of IV fluid the urine showed glucose greater than 500. 06/18/17 02:42 The patient does not seem to have DKA based on his lab work. The ketosis noted is likely due to not eating or possibly alcohol abuse. He is known to abuse cocaine in the past. He was advised that he needs to establish with a primary care provider, or [facility] to get regular management of his diabetes, his high blood pressure, and he needs to be seen by an eye doctor before he loses his vision. He was told several times about the risks to his health, (specifically vision, kidneys, and heart) by not taking his diabetes and his medical care more seriously. He was also instructed to have someone who is able to read, to read his instructions to him again tomorrow so that he remembers what he has been told. (ELLIOT SOLANO) - Vital Signs Vital signs: Temp Pulse Resp BP Pulse Ox 98.5 F 21 H 185/107 H 98 06/17/17 19:22 06/18/17 01:01 06/18/17 01:01 06/18/17 01:01 - Laboratory Laboratory results interpreted by me: 06/17/17 06/17/17 06/17/17 20:05 20:05 23:02 Lymphocytes % (Manual) 10 L Potassium BUN 26 H Creatinine POC Glucose Calcium 10.8 H Magnesium 2.5 H ALT 79 H Alkaline Phosphatase 161 H Creatine Kinase 26 L Urine Protein 30 H Urine Glucose (UA) >=500 H Urine Ketones 20 H 06/18/17 06/18/17 01:41 01:44 Lymphocytes % (Manual) Potassium 3.1 L BUN Creatinine 0.48 L POC Glucose 121 H Calcium Magnesium ALT Alkaline Phosphatase Creatine Kinase 22 L Urine Protein Urine Glucose (UA) Urine Ketones Discharge <ALPA RIVERA - Last Filed: 06/18/17 01:58> <ELLIOT SOLANO - Last Filed: 06/18/17 02:45> - Discharge Clinical Impression: Feeling bad, Hypokalemia, Dehydration Type 1 diabetes mellitus Qualifiers: Diabetes mellitus complication status: with unspecified complications Qualified Code(s): E10.8 - Type 1 diabetes mellitus with unspecified complications HTN (hypertension) Qualifiers: Hypertension type: essential hypertension Qualified Code(s): I10 - Essential ( primary) hypertension Condition: Stable Disposition: HOME, SELF-CARE Instructions: [facility] Additional Instructions: Check your sugars regularly. Try to eat healthy meals. Take the lisinopril as prescribed for your blood pressure. Follow-up with the [facility] or a local medical provider. You need closer follow-up and management of your diabetes to include an eye exam. You are putting your health at risk, specifically your vision, your kidney function, and your heart, by not taking better care of your health. RETURN TO THE EMERGENCY ROOM IF ANY NEW OR WORSENING SYMPTOMS. Prescriptions: Lisinopril 10 mg PO DAILY #30 tablet Scribe Attestation: 06/17/17 21:52 I personally performed the services described in the documentation, reviewed and edited the documentation which was dictated to the scribe in my presence, and it accurately records my words and actions. (ELLIOT SOLANO) Scribe Documentation - Scribe Written by Scribe:: Mateo Thomas, 06/17/2017 20:18 acting as scribe for :: Linda <ALPA RIVERA - Last Filed: 06/18/17 01:58>
[2017-06-17 20:32] LABS: HEMOGLOBIN 14.7 g/dL (13.5-17.0); MEAN CORPUSCULAR HEMOGLOBIN 32.6 pg (27.0-33.4); MEAN CORPUSCULAR HGB CONC 34.9 g/dL (32.0-36.0); MEAN CORPUSCULAR VOLUME 93 fl (80-97); PLATELET COUNT 414 10^3/uL (150-450); RED BLOOD COUNT 4.51 10^6/uL (4.35-5.55); RED CELL DISTRIBUTION WIDTH 13.6 % (11.5-14.0); WHITE BLOOD COUNT 6.6 10^3/uL (4.0-10.5)
[2017-06-17 20:56] LABS: ABSOLUTE LYMPHOCYTES# (MANUAL) 0.7 10^3/uL (0.5-4.7); ABSOLUTE MONOCYTES # (MANUAL) 0.7 10^3/uL (0.1-1.4); ABSOLUTE NEUTROPHILS# (MANUAL) 5.1 10^3/uL (1.7-8.2); BASOPHILS % (MANUAL) 0 % (0-2); EOSINOPHILS % (MANUAL) 1 % (0-6); LYMPHOCYTES % (MANUAL) 10 % (13-45); MONOCYTES % (MANUAL) 11 % (3-13); SEGMENTED NEUTROPHILS % (MAN) 78 % (42-78); TOTAL CELLS COUNTED 100
[2017-06-17 20:58] LABS: RBC MORPHOLOGY COMMENT NORMO-CYTIC/CHROMIC; TOXIC GRANULATION SLIGHT
[2017-06-17 20:59] LABS: PLATELET COMMENT ADEQUATE
[2017-06-17 21:02] LABS: ALANINE AMINOTRANSFERASE 79 U/L (21-72); ALBUMIN 4.2 g/dL (3.5-5.0); ALKALINE PHOSPHATASE 161 U/L (38-126); ANION GAP 15 (5-19); ASPARTATE AMINO TRANSFERASE 51 U/L (17-59); BILIRUBIN,DIRECT 0.4 mg/dL (0.0-0.4); BILIRUBIN,TOTAL 0.5 mg/dL (0.2-1.3); BLOOD UREA NITROGEN 26 mg/dL (7-20); CALCIUM 10.8 mg/dL (8.4-10.2); CARBON DIOXIDE 30 mmol/L (22-30); CHLORIDE 98 mmol/L (98-107); CREATINE KINASE 26 U/L (55-170); GLUCOSE 98 mg/dL (75-110); POTASSIUM 3.8 mmol/L (3.6-5.0); SODIUM 142.9 mmol/L (137-145); TOTAL PROTEIN 7.7 g/dL (6.3-8.2)
[2017-06-17] MEDS ORDERED: RINGERS SOLUTION,LACTATED 1,000 ML IV ONE (23:10)
[2017-06-17 23:41] LABS: APPEARANCE,URINE CLEAR; BILIRUBIN,URINE NEGATIVE (NEGATIVE); COLOR,URINE YELLOW; GLUCOSE, URINE >=500 mg/dL (NEGATIVE); KETONES,URINE 20 mg/dL (NEGATIVE); LEUKOCYTE ESTERASE,URINE NEGATIVE (NEGATIVE); NITRITE,URINE NEGATIVE (NEGATIVE); PROTEIN,URINE 30 mg/dL (NEGATIVE); URINE SPECIFIC GRAVITY 1.024; UROBILINOGEN,URINE NEGATIVE mg/dL (<2.0)
[2017-06-18] MEDS ORDERED: ACETAMINOPHEN 325 MG TABLET PO ONE (01:58)
[2017-06-18 02:08] LABS: ANION GAP 9 (5-19); BLOOD UREA NITROGEN 16 mg/dL (7-20); CALCIUM 8.4 mg/dL (8.4-10.2); CARBON DIOXIDE 28 mmol/L (22-30); CHLORIDE 104 mmol/L (98-107); CREATINE KINASE 22 U/L (55-170); GLUCOSE 110 mg/dL (75-110); POTASSIUM 3.1 mmol/L (3.6-5.0); SODIUM 140.6 mmol/L (137-145)
[2017-06-18] MEDS ORDERED: POTASSIUM CHLORIDE 20 MEQ/15 ML UDCUP PO ONE (02:22)
[2017-06-18] MEDS ORDERED: LISINOPRIL 10 MG TABLET PO ONE (02:37)
[2017-06-18 03:46] VITALS: BP 196/101
--- NOTE | 2017-06-18 07:45 | EKG REPORT ---
SEVERITY:- ABNORMAL ECG - SINUS RHYTHM LVH WITH SECONDARY REPOLARIZATION ABNORMALITY ANTERIOR Q WAVES, POSSIBLY DUE TO LVH ST DEPRESSION, CONSIDER ISCHEMIA, ANT-LAT LDS : Confirmed by: Brendan Cummings MD 18-Jun-2017 07:45:02
== END 2017-06-18 03:00 | disposition home or self-care (01) ==
LOC: ER 19:10
DX: E86.0 Dehydration (principal); E87.6 Hypokalemia; E10.8 Type 1 diabetes mellitus with unspecified complications; R51 Headache; R53.81 Other malaise; I50.9 Heart failure, unspecified; I11.0 Hypertensive heart disease with heart failure
CPT/HCPCS: 93005; 99285; 96360; 96361; 36415; 82962; 82550; 83735; 85025; 80048; 80053; 81001; 84484; 83605; 93010; J7030; J7120

== ENCOUNTER → 2018-03-30 | Outpatient (CLI) | payer OTHER ==
--- NOTE | 2018-03-30 11:51 | RADIOLOGY REPORT (SQ) ---
EXAM DESCRIPTION: MRI HEAD COMBO COMPLETED DATE/TIME: 03/30/2018 11:18 am REASON FOR STUDY: VISUAL FIELD DEFECTS (H53.40) H53.40 UNSPECIFIED VISUAL FIELD DEFECTS COMPARISON: None. TECHNIQUE: Multiplanar imaging includes non-contrasted T1, T2, FLAIR, diffusion with ADC map and pos t gadolinium contrast sequences. Additional thin slice images with and without gadolinium contrast a cquired of the orbits. Images stored on PACS. CONTRAST TYPE AND DOSE: 10 mL Dotarem. RENAL FUNCTION: GFR > 60. LIMITATIONS: None. FINDINGS: ANATOMY: No anomalies. Normal vascular flow voids. Pituitary fossa normal. CSF SPACES: Normal in size and contour. CEREBRUM: Approximately 2.5 cm diameter focus of encephalomalacia in the left occipital lobe. Less t arceo 1 cm central focus of low signal on T2 gradient consistent with old blood. There are adjacent di lated vessels. No hemorrhage or mass effect. POSTERIOR FOSSA: No signal alteration. No hemorrhage. No edema, masses or mass effect. Internal shonna tory canals, cerebello-pontine angles, mastoids normal. No enhancing lesions. DIFFUSION IMAGING: Negative for acute or sub-acute infarction. ORBITS: No masses. Globes normal. Extraocular muscles and optic nerves normal. Orbital fat clear. No inflammatory changes or enhancement. PARANASAL SINUSES: Mucosal thickening frontal sinuses and left maxillary sinus. OTHER: No other significant finding. 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 No acute findings. TECHNICAL DOCUMENTATION: JOB ID: [id number] [employer]- All Rights Reserved Reading location - IP/workstation name: [email or web address]
== END ==
LOC: RAD 09:59
DX: H53.40 Unspecified visual field defects (principal)
CPT/HCPCS: 82565; 70553; A9576

== ENCOUNTER 2018-04-09 10:00 | Inpatient (IN) | payer OTHER ==
--- NOTE | 2018-04-09 10:46 | ER Document Report ---
ED General - General Chief Complaint: Weakness Stated Complaint: WEAKNESS/FALL Time Seen by Provider: 04/09/18 10:20 Primary Care Provider: [facility] [Primary Care Provider] - Follow up as needed Notes: Ill appearing 52-year-old male with hypertension, ? CHF, and insulin-dependent diabetes mellitus presents to the emergency department for "falling out" and weakness. He states he has been sick for a couple of days and last night was laying in bed and got up to get a drink water in the fridge close the fridge door and he blacked out and woke up on the kitchen floor. He crawled to the bathroom to clean himself up because he soiled himself, went back to bed, went back to the kitchen for another drink of water and blacked out again. He denies any flulike symptoms, complains of heavy breathing, denies chest pain, states he vomited a couple of days ago, has not eaten in 3-4 days, had diarrhea last night, denies any urinary symptoms. TRAVEL OUTSIDE OF THE [place] IN LAST 30 DAYS: No - Related Data Allergies/Adverse Reactions: No Known Allergies Allergy (Verified 06/08/17 20:19) Past Medical History - Social History Smoking Status: Unknown if Ever Smoked Family History: DM, Hypertension Patient has suicidal ideation: No Patient has homicidal ideation: No - Past Medical History Cardiac Medical History: Reports: Hx Congestive Heart Failure, Hx Hypertension Endocrine Medical History: Reports: Hx Diabetes Mellitus Type 1 Renal/ Medical History: Reports: Hx Renal Insufficiency. Denies: Hx Peritoneal Dialysis Past Surgical History: Reports: Other - Denies any recent surgery Review of Systems - Review of Systems Constitutional: See HPI EENT: No symptoms reported Cardiovascular: See HPI Respiratory: See HPI Gastrointestinal: See HPI Genitourinary: See HPI Male Genitourinary: No symptoms reported Musculoskeletal: No symptoms reported Skin: No symptoms reported Hematologic/Lymphatic: No symptoms reported Neurological/Psychological: See HPI Physical Exam - Vital signs Vitals: Pulse Resp BP Pulse Ox 95 16 154/108 H 94 04/09/18 10:08 04/09/18 10:08 04/09/18 10:08 04/09/18 10:08 - Notes Notes: PHYSICAL EXAMINATION: Reviewed vital signs and charting by RN GENERAL: Ill-appearing and cachectic. No acute distress. HEAD: Normocephalic, atraumatic. EYES: Pupils equal, round, and reactive to light. Extraocular movements intact. ENT: Oral mucosa moist, tongue midline. NECK: Full range of motion. Supple. Trachea midline. LUNGS: Clear to auscultation bilaterally, no wheezes, rales, or rhonchi. No respiratory distress. HEART: Regular rate and rhythm. No murmur ABDOMEN: soft, non-tender. Non-distended. Bowel sounds present in all 4 quadrants. no McBurney's point tenderness, no Patel sign. EXTREMITIES: Moves all 4 extremities spontaneously. No edema, No cyanosis. NEUROLOGICAL: Alert and oriented x3. Normal speech. No pronator drift, no focal neuro deficits, strength 5/5 in all 4 extremities PSYCH: Normal affect, normal mood. SKIN: Warm, dry, normal turgor. No rashes or lesions noted. Course - Re-evaluation Re-evalutation: 04/09/18 10:44 Ill-appearing cachectic male with insulin-dependent diabetes mellitus presents with blood glucose level of 359. Workup initiated. Per mom he has some type of CHF or cardiomyopathy. Plan to call the hospitalist. 04/09/18 16:50 Patient's serum glucose was 426. Patient received overall 2 L of fluid. Repeat glucose was 259. Got a BNP which was approximately 200. Lactate 1.3. Dr. Luong came and saw the patient. CT head without contrast ordered and negative for any intracranial bleed. He is excepting the patient for full admission to [facility]. - Vital Signs Vital signs: Temp Pulse Resp BP Pulse Ox 97.5 F 94 13 172/99 H 100 04/09/18 10:23 04/09/18 12:59 04/09/18 15:31 04/09/18 15:31 04/09/18 15:31 - Laboratory Result Diagrams: 04/09/18 10:30 04/09/18 10:30 Laboratory results interpreted by me: 04/09/18 04/09/18 04/09/18 10:10 10:30 10:30 RDW 14.2 H Seg Neutrophils % 78.1 H Lymphocytes % 12.5 L Sodium 135.9 L Chloride 94 L Carbon Dioxide 21 L Anion Gap 21 H BUN 22 H Glucose 426 H* POC Glucose 359 H Calcium 10.5 H Direct Bilirubin 0.5 H Alkaline Phosphatase 144 H Albumin 5.1 H Urine Protein Urine Glucose (UA) Urine Ketones Urine Blood 04/09/18 04/09/18 14:23 15:00 RDW Seg Neutrophils % Lymphocytes % Sodium Chloride Carbon Dioxide Anion Gap BUN Glucose POC Glucose 276 H Calcium Direct Bilirubin Alkaline Phosphatase Albumin Urine Protein 30 H Urine Glucose (UA) >=500 H Urine Ketones 80 H Urine Blood SMALL H Discharge - Discharge Clinical Impression: Dehydration DKA (diabetic ketoacidoses) Qualifiers: Diabetes mellitus type: type 1 Diabetes mellitus complication detail: without coma Qualified Code(s): E10.10 - Type 1 diabetes mellitus with ketoacidosis without coma Condition: Stable Disposition: ADMITTED INPATIENT Admitting Provider: Hospitalist Unit Admitted: IMCU Referrals: [facility] [Primary [facility] Provider] - Follow up as needed
--- NOTE | 2018-04-09 11:05 | RADIOLOGY REPORT (SQ) ---
EXAM DESCRIPTION: CHEST SINGLE VIEW COMPLETED DATE/TIME: 04/09/2018 10:53 am REASON FOR STUDY: SOB COMPARISON: 01/26/2016 EXAM PARAMETERS: NUMBER OF VIEWS: One view. TECHNIQUE: Single frontal radiographic view of the chest acquired. RADIATION DOSE: NA LIMITATIONS: None. FINDINGS: LUNGS AND PLEURA: No opacities, masses or pneumothorax. No pleural effusion. MEDIASTINUM AND HILAR STRUCTURES: No masses. Contour normal. HEART AND VASCULAR STRUCTURES: Heart normal in size. Normal vasculature. BONES: No acute findings. HARDWARE: None in the chest. OTHER: No other significant finding. IMPRESSION: NO ACUTE RADIOGRAPHIC FINDING IN THE CHEST. TECHNICAL DOCUMENTATION: JOB ID: [id number] [email or web address]- All Rights Reserved Reading location - IP/workstation name: [email or web address]
[2018-04-09 11:11] LABS: ABSOLUTE MONOCYTES (AUTO) 0.7 10^3/uL (0.1-1.4); BASOPHILS % (AUTO) 0.6 % (0-2); EOSINOPHILS % (AUTO) 0.3 % (0-6); HEMATOCRIT 43.5 % (37.9-51.0); LYMPHOCYTES % (AUTO) 12.5 % (13-45); MEAN CORPUSCULAR HEMOGLOBIN 32.7 pg (27.0-33.4); MEAN CORPUSCULAR HGB CONC 34.4 g/dL (32.0-36.0); MEAN CORPUSCULAR VOLUME 95 fl (80-97); MONOCYTES % (AUTO) 8.5 % (3-13); PLATELET COUNT 279 10^3/uL (150-450); RED BLOOD COUNT 4.57 10^6/uL (4.35-5.55); RED CELL DISTRIBUTION WIDTH 14.2 % (11.5-14.0); SEGMENTED NEUTROPHILS % (AUTO) 78.1 % (42-78); TOTAL CELLS COUNTED % (AUTO) 100 %; WHITE BLOOD COUNT 7.7 10^3/uL (4.0-10.5)
[2018-04-09 11:32] LABS: ALANINE AMINOTRANSFERASE 37 U/L (21-72); ALBUMIN 5.1 g/dL (3.5-5.0); ALKALINE PHOSPHATASE 144 U/L (38-126); ASPARTATE AMINO TRANSFERASE 37 U/L (17-59); BILIRUBIN,DIRECT 0.5 mg/dL (0.0-0.4); BILIRUBIN,TOTAL 0.8 mg/dL (0.2-1.3); BLOOD UREA NITROGEN 22 mg/dL (7-20); CALCIUM 10.5 mg/dL (8.4-10.2); POTASSIUM 4.8 mmol/L (3.6-5.0); TOTAL PROTEIN 8.2 g/dL (6.3-8.2)
[2018-04-09 11:39] LABS: CARBON DIOXIDE 21 mmol/L (22-30); CHLORIDE 94 mmol/L (98-107); SODIUM 135.9 mmol/L (137-145)
[2018-04-09 11:44] LABS: ANION GAP 21 (5-19)
[2018-04-09 11:45] LABS: GLUCOSE 426 mg/dL (75-110)
[2018-04-09] MEDS ORDERED: INSULIN REG, HUMAN 100 UNIT/ML 3 ML VIAL (PYX) SUBCUT ONE (12:29)
[2018-04-09] MEDS ORDERED: NORMAL SALINE 1000 ML 1,000 ML IV ONE (12:31)
[2018-04-09] MEDS ORDERED: NORMAL SALINE 1000 ML 500 ML IV ONE ×2 (12:31→14:13)
[2018-04-09] MEDS ORDERED: ACETAMINOPHEN 325 MG TABLET PO ONE (15:12)
[2018-04-09 15:55] LABS: APPEARANCE,URINE SLIGHTLY-CLOUDY; BILIRUBIN,URINE NEGATIVE (NEGATIVE); COLOR,URINE YELLOW; GLUCOSE, URINE >=500 mg/dL (NEGATIVE); KETONES,URINE 80 mg/dL (NEGATIVE); LEUKOCYTE ESTERASE,URINE NEGATIVE (NEGATIVE); NITRITE,URINE NEGATIVE (NEGATIVE); PROTEIN,URINE 30 mg/dL (NEGATIVE); URINE SPECIFIC GRAVITY 1.026; UROBILINOGEN,URINE NEGATIVE mg/dL (<2.0)
--- NOTE | 2018-04-09 16:46 | RADIOLOGY REPORT (SQ) ---
EXAM DESCRIPTION: CT HEAD WITHOUT COMPLETED DATE/TIME: 04/09/2018 4:37 pm REASON FOR STUDY: fall COMPARISON: CT dated 07/15/2013. MR dated 03/30/2018. TECHNIQUE: Axial images acquired through the brain without intravenous contrast. Images reviewed wi th bone, brain and subdural windows. Additional sagittal and coronal reconstructions were generated. Images stored on PACS. All CT scanners at this facility use dose modulation, iterative reconstruction, and/or weight based d osing when appropriate to reduce radiation dose to as low as reasonably achievable (ALARA). [facility]: Dose Right [facility]: CareDose [facility]: Dose Right [facility]: Teradose 4D [facility]: Smart Driverdo RADIATION DOSE: CT Rad equipment meets quality standard of care and radiation dose reduction techniq ues were employed. CTDIvol: 53.2 mGy. DLP: 964 mGy-cm. mGy. LIMITATIONS: None. FINDINGS: VENTRICLES: Normal size and contour. CEREBRUM: No masses. No hemorrhage. No midline shift. No evidence for acute infarction. Normal gra y/white matter differentiation. 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 CEREBELLUM: No masses. No hemorrhage. No alteration of density. No evidence for acute infarction. EXTRAAXIAL SPACES: No fluid collections. No masses. ORBITS AND GLOBE: No intra- or extraconal masses. Normal contour of globe without masses. CALVARIUM: No fracture. PARANASAL SINUSES: Mucous membrane thickening and fluid in the left maxillary and left sphenoid sinus es. SOFT TISSUES: No mass or hematoma. OTHER: No other significant finding. IMPRESSION: 1. 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 OTHERWISE NO ACUTE OR SIGNIFICANT FINDINGS. 2. SINUS DISEASE. EVIDENCE OF ACUTE STROKE: NO. COMMENT: Quality ID # [id number]: Final reports with documentation of one or more dose reduction techniques (e.g., Automated exposure control, adjustment of the mA and/or kV according to patient size, use of iterative reconstruction technique) TECHNICAL DOCUMENTATION: JOB ID: [id number] [email or web address]- All Rights Reserved Reading location - IP/workstation name: [email or web address]
--- NOTE | 2018-04-09 16:50 | PDOC H&P ---
History of Present Illness Admission Date/PCP: [facility] Patient complains of: syncope History of Present Illness: AMPARO PHAN is a 52 year old male with a PMH of IDDM and prior DKAs who presented with syncope. Patient says he woke up last night around 12 midnight and went to get something from the fridge when he felt dizzy and passed out. He says he did not know how long he was out but woke up lying on the floor and noticed he had urinary and bowel incontinence. He says he felt weak and crawled towards the bathroom to clean himself. He later tried to walk and he had another episode of syncope. Early this morning, he asked his mother to bring him to the ER. He lives alone and is unsure if he had seizure-like activity. Denies prior history of seizures. He says he has been having nausea and poor oral intake in the past week. He had a few episodes of nonbloody, nonbilious vomiting 3 days ago associated withwatery, nonbloody stools (3x/day) for the past 3 days. He denies fever or chills. He says he has been compliant with his insulin at home. He denies chest pain or SOB. He and his mother say he was told by a doctor in [place] 2 years ago that he has a "weak heart" that a part of his heart muscle is not working so well. Past Medical History Cardiac Medical History: Reports: Congestive Heart Failure, Hypertension Endocrine Medical History: Reports: Diabetes Mellitus Type 1 Past Surgical History Past Surgical History: Reports: Other - Denies any recent surgery Social History Smoking Status: Unknown if Ever Smoked Frequency of Alcohol Use: None Hx Recreational Drug Use: No Drugs: None Hx Prescription Drug Abuse: No Family History Family History: DM, Hypertension Parental Family History Reviewed: Yes - no premature CAD Children Family History Reviewed: No Sibling(s) Family History Reviewed.: No Medication/Allergy Home Medications: Insulin NPH Hum/Reg Insulin Hm [Humulin 70-30 Vial] 30 unit SQ Q12 02/11/17 Metoclopramide HCl [Reglan 10 mg Tablet] 10 mg PO ACHS #120 tablet 06/10/17 Lisinopril 10 mg PO DAILY #30 tablet 06/18/17 Allergies/Adverse Reactions: No Known Allergies Allergy (Verified 06/08/17 20:19) Review of Systems All systems: reviewed and no additional remarkable complaints except as stated - as mentioned in HPI Physical Exam Vital Signs: Temp Pulse Resp BP Pulse Ox 97.5 F 94 13 172/99 H 100 04/09/18 10:23 04/09/18 12:59 04/09/18 15:31 04/09/18 15:31 04/09/18 15:31 Intake & Output 04/08/18 04/09/18 04/10/18 06:59 06:59 06:59 Intake Total 1999 Balance 1999 Weight 105 lb 13.15 oz General appearance: PRESENT: no acute distress, well-developed, well-nourished, other - appears dehydrated Head exam: PRESENT: atraumatic, normocephalic Eye exam: PRESENT: conjunctiva pink, EOMI, PERRLA. ABSENT: scleral icterus Ear exam: PRESENT: normal external ear exam Neck exam: ABSENT: carotid bruit, JVD, lymphadenopathy, thyromegaly Respiratory exam: PRESENT: clear to auscultation baldemar. ABSENT: rales, rhonchi, wheezes Cardiovascular exam: PRESENT: RRR. ABSENT: diastolic murmur, rubs, systolic murmur Pulses: PRESENT: normal dorsalis pedis pul GI/Abdominal exam: PRESENT: normal bowel sounds, soft. ABSENT: distended, guarding, mass, organolmegaly, rebound, tenderness Rectal exam: PRESENT: deferred Neurological exam: PRESENT: alert, awake, oriented to person, oriented to place, oriented to time, oriented to situation, CN II-XII grossly intact. ABSENT: motor sensory deficit Results Laboratory Results: 04/09/18 10:30 04/09/18 10:30 04/09/18 04/09/18 04/09/18 10:30 10:30 10:30 WBC 7.7 RBC 4.57 Hgb 15.0 Hct 43.5 MCV 95 MCH 32.7 MCHC 34.4 RDW 14.2 H Plt Count 279 Seg Neutrophils % 78.1 H Lymphocytes % 12.5 L Monocytes % 8.5 Eosinophils % 0.3 Basophils % 0.6 Absolute Neutrophils 6.0 Absolute Lymphocytes 1.0 Absolute Monocytes 0.7 Absolute Eosinophils 0.0 Absolute Basophils 0.0 Sodium 135.9 L Potassium 4.8 Chloride 94 L Carbon Dioxide 21 L Anion Gap 21 H BUN 22 H Creatinine 1.09 Est GFR ( Amer) > 60 Est GFR (Non-Af Amer) > 60 Glucose 426 H* Lactic Acid 1.3 Calcium 10.5 H Total Bilirubin 0.8 AST 37 ALT 37 Alkaline Phosphatase 144 H Total Protein 8.2 Albumin 5.1 H Urine Color Urine Appearance Urine pH Ur Specific [place] Urine Protein Urine Glucose (UA) Urine Ketones Urine Blood Urine Nitrite Ur Leukocyte Esterase Urine WBC (Auto) Urine RBC (Auto) 04/09/18 15:00 WBC RBC Hgb Hct MCV MCH MCHC RDW Plt Count Seg Neutrophils % Lymphocytes % Monocytes % Eosinophils % Basophils % Absolute Neutrophils Absolute Lymphocytes Absolute Monocytes Absolute Eosinophils Absolute Basophils Sodium Potassium Chloride Carbon Dioxide Anion Gap BUN Creatinine Est GFR ( Amer) Est GFR (Non-Af Amer) Glucose Lactic Acid Calcium Total Bilirubin AST ALT Alkaline Phosphatase Total Protein Albumin Urine Color YELLOW Urine Appearance SLIGHTLY-CLOUDY Urine pH 6.0 Ur Specific Lima 1.026 Urine Protein 30 H Urine Glucose (UA) >=500 H Urine Ketones 80 H Urine Blood SMALL H Urine Nitrite NEGATIVE Ur Leukocyte Esterase NEGATIVE Urine WBC (Auto) 6 Urine RBC (Auto) 2 04/09/18 04/09/18 10:30 10:30 Troponin I < 0.012 NT-Pro-B Natriuret Pep 208 Impressions: Chest X-Ray 04/09/18 10:26 IMPRESSION: NO ACUTE RADIOGRAPHIC FINDING IN THE CHEST. Assessment & Plan - Diagnosis (1) Syncope Is this a current diagnosis for this admission?: Yes Plan: Orthostatic blood pressures are positive after 2L of fluid boluses. Syncope is likely from volume depletion/severe dehydration. Continue IV fluids. Continue monitoring of orthostatic vital signs. Will order an echo as patient and his mother say he was told by a doctor in [place] 2 years ago that he has a "weak heart" that a part of his heart muscle is not working so well. He cannot recall the physician's name or if he had an echocardiogram. (2) Dehydration Is this a current diagnosis for this admission?: Yes Plan: He has received 2L of fluid bolus. Will continue normal saline at 125 cc/hr. (3) Diabetic ketoacidosis Qualifiers: Diabetes mellitus type: type 1 Diabetes mellitus complication detail: without coma Qualified Code(s): E10.10 - Type 1 diabetes mellitus with k etoacidosis without coma Is this a current diagnosis for this admission?: Yes Plan: Appears patient was in initially in mild DKA with significantly elevated anion gap, mildly low HCO, glucose in the 400s with ketonuria. He got 2L of fluids and 10 u of regular insulin in the ER. Repeat BMP, will see if if bicarb and gap have recovered. Will check Hba1c as well. (4) Acute diarrhea Is this a current diagnosis for this admission?: Yes Plan: Will check C diff if there is recurrence/persistence of diarrhea. IV fluids as mentioned. - Time Time Spent: 30 to 50 Minutes
[2018-04-09] MEDS ORDERED: ONDANSETRON HCL INJ/PF 4 MG/2 ML SDV IV PRN (16:53)
[2018-04-09] MEDS: NORMAL SALINE 1000 ML 1,000 ML IV PRN ×2 (17:42→18:46)
[2018-04-09 18:13] LABS: URINE AMPHETAMINES SCREEN NEGATIVE; URINE BARBITURATES SCREEN NEGATIVE; URINE BENZODIAZEPINES SCREEN NEGATIVE; URINE COCAINE SCREEN UNCONFIRMED POSITIVE; URINE MARIJUANA (THC) SCREEN NEGATIVE; URINE METHADONE SCREEN NEGATIVE; URINE PHENCYCLIDINE SCREEN NEGATIVE
[2018-04-09 18:16] LABS: ANION GAP 8 (5-19); BLOOD UREA NITROGEN 18 mg/dL (7-20); CALCIUM 8.9 mg/dL (8.4-10.2); CARBON DIOXIDE 26 mmol/L (22-30); CHLORIDE 104 mmol/L (98-107); GLUCOSE 104 mg/dL (75-110); POTASSIUM 4.4 mmol/L (3.6-5.0); SODIUM 137.6 mmol/L (137-145)
[2018-04-09] MEDS ORDERED: GLUCAGON,HUMAN RECOMB 1 MG INJ IM PRN (18:21)
[2018-04-09] MEDS ORDERED: DEXTROSE 40% GEL 15 GM TUBE PO PRN ×2 (18:21)
[2018-04-09] MEDS ORDERED: DEXTROSE 50%-WATER 25 GM/50 ML DISP.SYRIN IV PRN ×2 (18:21)
[2018-04-09] MEDS ORDERED: LISINOPRIL 10 MG TABLET PO ONE (18:45)
--- NOTE | 2018-04-09 19:10 | XCELERA REPORT ---
[address] [address] Transthoracic Echocardiogram Report Name: AMPARO PHAN Age: 52 yrs Gender: Male : 1965 Patient Status: Inpatient Patient Location: [place] [address]^A Study Date: 04/09/2018 05:46 PM Height: 66 in Weight: 105 lb BSA: 1.5 m2 Procedure: A complete two-dimensional transthoracic echocardiogram was performed (2D, M-mode, spectral and color flow Doppler). The study was technically adequate with some images being suboptimal in quality. Reason For Study: pers hx of ?cardiomyopathy and CHF,syncope,no echo Ordering Physician: MOHSEN MARTIN Performed By: Kishan Melendrez Interpretation Summary The left ventricular ejection fraction is normal. There is mild concentric left ventricular hypertrophy. The left ventricle is grossly normal size. Doppler measurements suggest pseudonormalized left ventricular relaxation, which is associated with grade II/IV or mild to moderate diastolic dysfunction Wall motion cannot be accurately commented on, but no definite regional wall motion abnormalities noted. The right ventricular systolic function is normal. The left atrial size is normal. The right atrium is normal in size There is a trace amount of mitral regurgitation There is no mitral valve stenosis. No aortic regurgitation is present. There is no aortic valve stenosis There is a trace or physiologic amount of tricuspid regurgitation Tricuspid regurgitation jet envelope not well defined to measure RV systolic pressure accurately. There is a mild to moderate amount of pulmonic regurgitation The aortic root is not well visualized but is probably normal size. The inferior vena cava was not well visualized Minimal pericardial effusion. MMode/2D Measurements & Calculations RVDd: 2.6 cm LVIDd: 3.9 cm FS: 29.7 % Ao root diam: 3.5 cm IVSd: 1.3 cm LVIDs: 2.8 cm EDV(Teich): 67.4 mlAo root area: LVPWd: 1.4 cm ESV(Teich): 28.7 ml9.6 cm2 EF(Teich): 57.5 % LA dimension: 2.5 cm LVOT diam: 2.3 cm LVLd ap4: 7.1 cm SV(MOD-sp4): LVOT area: EDV(MOD-sp4): 30.0 ml 58.0 ml 4.1 cm2 LVLs ap4: 6.3 cm ESV(MOD-sp4): 28.0 ml EF(MOD-sp4): 51.7 % Doppler Measurements & Calculations MV E max monika: MV P1/2t max monika: Ao V2 max: LV V1 max P.8 cm/sec 97.7 cm/sec 107.0 cm/sec 2.6 mmHg MV A max monika: MV P1/2t: 62.3 msec Ao max P.6 mmHg LV V1 mean P.9 cm/sec MVA(P1/2t): 3.5 cm2 Ao V2 mean: 1.2 mmHg MV E/A: 0.69 MV dec slope: 71.4 cm/sec LV V1 max: Ao mean P.0 cm/sec 459.6 cm/sec2 2.3 mmHg LV V1 mean: MV dec time: 0.37 secAo V2 VTI: 14.6 cm 50.5 cm/sec KERRY(I,D): 3.3 cm2 LV V1 VTI: 11.7 cm KERRY(V,D): 3.1 cm2 SV(LVOT): 48.2 ml PA V2 max: PI end-d monika: TR max monika: 90.9 cm/sec 112.7 cm/sec 161.5 cm/sec PA max P.3 mmHg TR max P.4 mmHg MV P1/2t-pr_phl: 62.3 msec Left Ventricle The left ventricle is grossly normal size. There is mild concentric left ventricular hypertrophy. The left ventricular ejection fraction is normal. Doppler measurements suggest pseudonormalized left ventricular relaxation, which is associated with grade II/IV or mild to moderate diastolic dysfunction. Wall motion cannot be accurately commented on, but no definite regional wall motion abnormalities noted. Right Ventricle The right ventricle is grossly normal size. There is normal right ventricular wall thickness. The right ventricular systolic function is normal. Atria The right atrium is normal in size. The left atrial size is normal. Interarterial septum not well visualized and not well dopplered. Cannot comment on ASD/PFO presence. Mitral Valve The mitral valve is grossly normal. There is no mitral valve stenosis. There is a trace amount of mitral regurgitation. Aortic Valve The aortic valve is grossly normal. There is no aortic valve stenosis. No aortic regurgitation is present. Tricuspid Valve The tricuspid valve is not well visualized, but is grossly normal. There is no tricuspid stenosis. There is a trace or physiologic amount of tricuspid regurgitation. Tricuspid regurgitation jet envelope not well defined to measure RV systolic pressure accurately. Pulmonic Valve The pulmonic valve is not well seen, but is grossly normal. There is no pulmonic valvular stenosis. There is a mild to moderate amount of pulmonic regurgitation. Great Vessels The aortic root is not well visualized but is probably normal size. The inferior vena cava was not well visualized. Effusions Minimal pericardial effusion. : MOHSEN MARTIN > Fede Toure
[2018-04-09] MEDS: HUM INSULIN NPH/REG INSULIN HM 100 UNIT/1 ML 3 ML SUBCUT SCH (22:27)
[2018-04-09] MEDS: INSULIN LISPRO 100 UNIT/ML 3 ML VIAL SUBCUT SCH (22:30)
[2018-04-10] MEDS ORDERED: GABAPENTIN 300 MG CAPSULE PO ONE (02:45)
[2018-04-10] MEDS: NORMAL SALINE 1000 ML 1,000 ML IV PRN (02:46)
[2018-04-10] MEDS ORDERED: FONDAPARINUX SODIUM INJ 2.5 MG/0.5 ML DISP.SYRIN SUBCUT SCH (08:00)
[2018-04-10] MEDS: INSULIN LISPRO 100 UNIT/ML 3 ML VIAL SUBCUT SCH ×3 (09:50→17:07)
[2018-04-10] MEDS ORDERED: LISINOPRIL 10 MG TABLET PO SCH (10:00)
[2018-04-10] MEDS: GABAPENTIN 300 MG CAPSULE PO SCH ×2 (10:03→17:06)
[2018-04-10] MEDS: HUM INSULIN NPH/REG INSULIN HM 100 UNIT/1 ML 3 ML SUBCUT SCH (11:28)
[2018-04-10] MEDS ORDERED: ACETAMINOPHEN 325 MG TABLET PO PRN (16:23)
[2018-04-10] MEDS ORDERED: ACETAMINOPHEN 325 MG TABLET ONE (16:27)
--- NOTE | 2018-04-10 16:50 | PDOC DISCHARGE SUMMARY ---
General - Admit/Disc Date/PCP Admission Date/Primary Care Provider: 04/09/18 17:05 [facility] Discharge Date: 04/10/18 - Discharge Diagnosis (1) Dehydration Is this a current diagnosis for this admission?: Yes Summary: His orthostatics were positive. We gave him some IV fluids and his dehydration and orthostatic vital signs corrected. (2) Hyperglycemia due to type 1 diabetes mellitus Is this a current diagnosis for this admission?: Yes Summary: Blood sugar was pretty well controlled with insulin he was on at home. I suspect he was just not taking it at home. (3) Hypertension Is this a current diagnosis for this admission?: Yes Summary: Blood pressure was reasonably well controlled on his home medication, which I suspect he just was not taking at home. His cocaine abuse probably plays a role in this as well. (4) Cocaine abuse Is this a current diagnosis for this admission?: Yes Summary: Strongly recommended cessation. He asked for something for pain earlier, and when the nurse offered him some Tylenol, I was told that he said he wanted Percocet instead. - Additional Information Resuscitation Status: Full Code Discharge Diet: Diabetic Discharge Activity: Activity As Tolerated Home Medications: Insulin NPH Hum/Reg Insulin Hm [Humulin 70-30 Vial] 30 unit SQ Q12 02/11/17 Metoclopramide HCl [Reglan 10 mg Tablet] 10 mg PO ACHS #120 tablet 06/10/17 Lisinopril 10 mg PO DAILY #30 tablet 06/18/17 History of Present Illness History of Present Illness: AMPARO PHAN is a 52 year old male with a PMH of IDDM and prior DKAs who presented with syncope. Patient says he woke up last night around 12 midnight and went to get something from the fridge when he felt dizzy and passed out. He says he did not know how long he was out but woke up lying on the floor and noticed he had urinary and bowel incontinence. He says he felt weak and crawled towards the bathroom to clean himself. He later tried to walk and he had another episode of syncope. Early this morning, he asked his mother to bring him to the ER. He lives alone and is unsure if he had seizure-like activity. Denies prior history of seizures. He says he has been having nausea and poor oral intake in the past week. He had a few episodes of nonbloody, nonbilious vomiting 3 days ago associated withwatery, nonbloody stools (3x/day) for the past 3 days. He denies fever or chills. He says he has been compliant with his insulin at home. He denies chest pain or SOB. He and his mother say he was told by a doctor in [place] 2 years ago that he has a "weak heart" that a part of his heart muscle is not working so well. Hospital Course Hospital Course: We gave him some insulin and some IV fluids and his blood sugars corrected. In fact, we gave him his insulin at night and he did need his blood sugar was little low the next morning and so his insulin was held. He ate and his blood sugars came up, but they came back down we gave him his home insulin. His blood pressure was a little on the low side when he came in and so his home blood pressure medication was held. This morning his blood pressure was elevated but came back down after we gave him his lisinopril. We gave him IV fluids and his blood pressure stabilized and his urine output improved. We suspect that he was not taking his medications at home as directed. We strongly encouraged him to do so. We also strongly encouraged him to not use cocaine, but he denied its use despite the fact that it was on his urine drug screen. His labs and examination were reassuring and he was discharged in good condition. Physical Exam Vital Signs: Temp Pulse Resp BP Pulse Ox 98.4 F 83 16 157/93 H 99 04/10/18 15:22 04/10/18 15:22 04/10/18 15:22 04/10/18 15:22 04/10/18 15:22 Intake & Output 04/09/18 04/10/18 04/11/18 06:59 06:59 06:59 Intake Total 3370 1708 Balance 3370 1708 Weight 50 kg General appearance: PRESENT: no acute distress, cooperative, disheveled, thin Respiratory exam: PRESENT: clear to auscultation baldemar, symmetrical, unlabored. ABSENT: accessory muscle use, crackles, prolonged expiratory phas, rhonchi, tachypnea, wheezes Cardiovascular exam: PRESENT: RRR, +S1, +S2 Pulses: PRESENT: normal carotid pulses Vascular exam: PRESENT: normal capillary refill GI/Abdominal exam: PRESENT: normal bowel sounds, soft. ABSENT: distended, gua rding, rebound, tenderness Extremities exam: ABSENT: clubbing, pedal edema Musculoskeletal exam: PRESENT: normal inspection. ABSENT: deformity Neurological exam: PRESENT: alert, awake, oriented to person, oriented to place, oriented to time Psychiatric exam: PRESENT: flat affect Skin exam: PRESENT: dry, warm Results Laboratory Results: 04/09/18 10:30 04/09/18 17:42 04/09/18 17:42 Sodium 137.6 Potassium 4.4 Chloride 104 Carbon Dioxide 26 Anion Gap 8 BUN 18 Creatinine 0.74 Est GFR ( Amer) > 60 Est GFR (Non-Af Amer) > 60 Glucose 104 Calcium 8.9 04/09/18 04/09/18 10:30 10:30 Troponin I < 0.012 NT-Pro-B Natriuret Pep 208 Impressions: Chest X-Ray 04/09/18 10:26 IMPRESSION: NO ACUTE RADIOGRAPHIC FINDING IN THE CHEST. Head CT 04/09/18 16:11 IMPRESSION: 1. 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 OTHERWISE NO ACUTE OR SIGNIFICANT FINDINGS. 2. SINUS DISEASE. EVIDENCE OF ACUTE STROKE: NO. Qualifiers - * PATIENT BEING DISCHARGED WITH ANY OF THE FOLLOWING DIAGNOSIS: No
[2018-04-10 17:11] VITALS: BP 175/105
--- NOTE | 2018-04-13 01:30 | EKG REPORT ---
SEVERITY:- ABNORMAL ECG - SINUS RHYTHM LEFT VENTRICULAR HYPERTROPHY ANTERIOR Q WAVES, POSSIBLY DUE TO LVH BORDERLINE PROLONGED QT INTERVAL : Confirmed by: Dannielle Joshi MD 13-Apr-2018 01:29:03
== END 2018-04-10 18:40 | disposition home or self-care (01) | DRG 641 ==
LOC: ER 10:00 → EH 17:05 → 3S 18:40
PROVIDERS: ADMIT Internal Medicine; ATTEND Internal Medicine
DX: E86.0 Dehydration (principal); R64 Cachexia; E10.65 Type 1 diabetes mellitus with hyperglycemia; I11.0 Hypertensive heart disease with heart failure; I50.9 Heart failure, unspecified; F14.10 Cocaine abuse, uncomplicated; R55 Syncope and collapse; R53.1 Weakness; Z60.2 Problems related to living alone; Z79.4 Long term (current) use of insulin; Z79.899 Other long term (current) drug therapy
CPT/HCPCS: 36415; 70450; 71045; 80048; 80053; 80307; 81001; 82962; 83036; 83605; 83880; 84484; 85025; 93005; 93010; 93306; 96360; 96361; 99285; J1652; J1815; J7030

== ENCOUNTER 2018-05-13 16:17 | Inpatient (IN) | payer OTHER ==
--- NOTE | 2018-05-13 17:21 | ER Document Report ---
ED Medical Screen (RME) - General Chief Complaint: High Blood Sugar Stated Complaint: POSSIBLE HIGH SUGAR Time Seen by Provider: 05/13/18 17:16 Primary Care Provider: SHREE TRAN [Primary Care Provider] - Follow up as needed Mode of Arrival: Wheelchair Information source: Patient Notes: Patient is a 52-year-old male with past medical history of insulin-dependent diabetes who presents to the emergency department with complaints of high blood sugar. Patient reports he has been out of his insulin for 1 day, states that he checked his sugar and it read high. Patient states that he generally does not not feel well. Patient is very angry and cantankerous. Denies any nausea or vomiting. Exam: Patient alert, oriented and answering questions. Skin warm and dry. I have greeted and performed a rapid initial assessment of this patient. A comprehensive ED assessment and evaluation of the patient, analysis of test results and completion of the medical decision making process will be conducted by additional ED providers. Dictation of this chart was performed using voice recognition software; therefore, there may be some unintended grammatical er rors. TRAVEL OUTSIDE OF THE [place] IN LAST 30 DAYS: No - Related Data Allergies/Adverse Reactions: No Known Allergies Allergy (Verified 06/08/17 20:19) Past Medical History - Past Medical History Cardiac Medical History: Reports: Hx Congestive Heart Failure, Hx Hypertension Endocrine Medical History: Reports: Hx Diabetes Mellitus Type 1 Renal/ Medical History: Reports: Hx Renal Insufficiency. Denies: Hx [facility] toneal Dialysis Past Surgical History: Reports: Other - Denies any recent surgery - Immunizations History of Influenza Vaccine for 11/2016 - 04/2017 Season: No Physical Exam - Vital signs Vitals: Temp Pulse Resp BP Pulse Ox 97.5 F 90 18 150/90 H 99 05/13/18 16:27 05/13/18 16:27 05/13/18 16:27 05/13/18 16:27 05/13/18 16:27 Course - Vital Signs Vital signs: Temp Pulse Resp BP Pulse Ox 97.5 F 90 18 150/90 H 99 05/13/18 16:27 05/13/18 16:27 05/13/18 16:27 05/13/18 16:27 05/13/18 16:27 Doctor's Discharge - Discharge Referrals: SHREE TRAN [Primary Care Provider] - Follow up as needed
[2018-05-13 18:11] LABS: APPEARANCE,URINE CLEAR; BILIRUBIN,URINE NEGATIVE (NEGATIVE); COLOR,URINE STRAW; GLUCOSE, URINE >=500 mg/dL (NEGATIVE); KETONES,URINE 80 mg/dL (NEGATIVE); LEUKOCYTE ESTERASE,URINE NEGATIVE (NEGATIVE); NITRITE,URINE NEGATIVE (NEGATIVE); PROTEIN,URINE NEGATIVE (NEGATIVE); URINE SPECIFIC GRAVITY 1.023; UROBILINOGEN,URINE NEGATIVE mg/dL (<2.0)
[2018-05-13 19:20] LABS: ABSOLUTE LYMPHOCYTES (AUTO) 0.6 10^3/uL (0.5-4.7); ABSOLUTE MONOCYTES (AUTO) 0.3 10^3/uL (0.1-1.4); ABSOLUTE NEUT (AUTO) 6.1 10^3/uL (1.7-8.2); BASOPHILS % (AUTO) 0.6 % (0-2); EOSINOPHILS % (AUTO) 0.1 % (0-6); HEMATOCRIT 42.4 % (37.9-51.0); HEMOGLOBIN 13.8 g/dL (13.5-17.0); LYMPHOCYTES % (AUTO) 8.4 % (13-45); MEAN CORPUSCULAR HEMOGLOBIN 32.7 pg (27.0-33.4); MEAN CORPUSCULAR HGB CONC 32.6 g/dL (32.0-36.0); MEAN CORPUSCULAR VOLUME 100 fl (80-97); MONOCYTES % (AUTO) 4.7 % (3-13); PLATELET COUNT 224 10^3/uL (150-450); RED BLOOD COUNT 4.22 10^6/uL (4.35-5.55); RED CELL DISTRIBUTION WIDTH 14.5 % (11.5-14.0); SEGMENTED NEUTROPHILS % (AUTO) 86.2 % (42-78); TOTAL CELLS COUNTED % (AUTO) 100 %
[2018-05-13 19:30] LABS: INTERNATIONAL RATION (INR) 0.92; PROTHROMBIN TIME 12.8 SEC (11.4-15.4)
[2018-05-13 19:31] LABS: PARTIAL THROMBOPLASTIN TIME 25.8 SEC (23.5-35.8)
[2018-05-13] MEDS ORDERED: NORMAL SALINE 1000 ML 1,000 ML IV ONE (19:31)
[2018-05-13 19:32] LABS: ALANINE AMINOTRANSFERASE 53 U/L (21-72); ALBUMIN 4.6 g/dL (3.5-5.0); ALKALINE PHOSPHATASE 150 U/L (38-126); ASPARTATE AMINO TRANSFERASE 47 U/L (17-59); BILIRUBIN,DIRECT 0.6 mg/dL (0.0-0.4); BILIRUBIN,TOTAL 0.7 mg/dL (0.2-1.3); BLOOD UREA NITROGEN 30 mg/dL (7-20); CALCIUM 9.8 mg/dL (8.4-10.2); TOTAL PROTEIN 7.6 g/dL (6.3-8.2)
[2018-05-13 19:40] LABS: CHLORIDE 93 mmol/L (98-107)
[2018-05-13 19:41] LABS: ANION GAP 31 (5-19); SODIUM 130.6 mmol/L (137-145)
[2018-05-13 19:44] LABS: CARBON DIOXIDE 7 mmol/L (22-30); GLUCOSE 675 mg/dL (75-110); POTASSIUM 6.1 mmol/L (3.6-5.0)
[2018-05-13 19:57] LABS: VENOUS BLOOD BASE EXCESS -18.6 mmol/L; VENOUS BLOOD HCO3 9.3 mmol/L (20-32); VENOUS BLOOD PCO2 28.7 mmHg (35-63)
[2018-05-13 20:00] LABS: VENOUS BLOOD PH 7.13 (7.30-7.42)
[2018-05-13] MEDS ORDERED: INSULIN REG, HUMAN 100 UNIT/ML 3 ML VIAL (PYX) IV ONE (20:16)
[2018-05-13] MEDS ORDERED: RINGERS SOLUTION,LACTATED 2,000 ML IV ONE (20:16)
[2018-05-13] MEDS ORDERED: METOCLOPRAMIDE HCL INJ/PF 10 MG/2 ML SDV IV ONE (20:18)
--- NOTE | 2018-05-13 20:22 | ER Document Report ---
ED General - General Chief Complaint: High Blood Sugar Stated Complaint: POSSIBLE HIGH SUGAR Time Seen by Provider: 05/13/18 17:16 Mode of Arrival: Wheelchair Cannot obtain history due to: Uncooperative, Altered mental status Notes: Patient is a 52-year-old male with a past medical history of insulin dependent diabetes, history of recurrent DKA, who presents with concerns of hyperglycemia. States that he does not use his insulin at approximately 36 hours. Has not been checking his blood sugars at home. Patient states that he feels very unwell like he has had diabetic ketoacidosis in the past. Symptoms started gradually, severe in nature, constant. Worsening since onset. Denies abdominal pain, chest pain but states he has been nauseated and vomiting. The history is limited as patient is somewhat uncooperative, terse on exam but also seems to be moderately altered and confused. Patient was hospitalized within the last 6 weeks for the same. TRAVEL OUTSIDE OF THE [place] IN LAST 30 DAYS: No - Related Data Allergies/Adverse Reactions: No Known Allergies Allergy (Verified 06/08/17 20:19) Past Medical History - General Information source: Patient - Social History Smoking Status: Current Every Day Smoker Frequency of alcohol use: Occasional Drug Abuse: Cocaine Lives with: Alone Family History: DM, Hypertension Patient has suicidal ideation: No Patient has homicidal ideation: No - Past Medical History Cardiac Medical History: Reports: Hx Congestive Heart Failure, Hx Hypertension Endocrine Medical History: Reports: Hx Diabetes Mellitus Type 1 Renal/ Medical History: Reports: Hx Renal Insufficiency. Denies: Hx Peritoneal Dialysis Psychiatric Medical History: Denies: Hx Depression Past Surgical History: Reports: Other - Denies any recent surgery - Immunizations History of Pneumococcal Vaccine: No Review of Systems - Review of Systems Notes: Constitutional: Negative for fever. Positive for fatigue HENT: Negative for sore throat. Eyes: Negative for visual changes. Cardiovascular: Negative for chest pain. Respiratory: Negative for shortness of breath. Gastrointestinal: Negative for abdominal pain, positive for nausea and vomiting Genitourinary: Negative for dysuria. Musculoskeletal: Negative for back pain. Skin: Negative for rash. Neurological: Negative for headaches, weakness or numbness. 10 point ROS negative except as marked above and in HPI. Physical Exam - Vital signs Vitals: Temp Pulse Resp BP Pulse Ox 97.5 F 90 18 150/90 H 99 05/13/18 16:27 05/13/18 16:27 05/13/18 16:27 05/13/18 16:27 05/13/18 16:27 Interpretation: Hypertensive Notes: PHYSICAL EXAMINATION: GENERAL: Appears moderately unwell but in no acute distress HEAD: Atraumatic, normocephalic. EYES: Pupils equal round and reactive to light, extraocular movements intact, sclera anicteric, conjunctiva are normal. ENT: nares patent, oropharynx clear without exudates. Moderately dry mucous membranes. NECK: Normal range of motion, supple without lymphadenopathy LUNGS: Breath sounds clear to auscultation bilaterally and equal. Rapid deep breathing consistent with Kussmaul's respirations HEART: Regular tachycardic without murmurs ABDOMEN: Soft, nontender, normoactive bowel sounds. No guarding, no rebound. No masses appreciated. EXTREMITIES: Normal range of motion, no pitting or edema. No cyanosis. NEUROLOGICAL: No focal neurological deficits. Moves all extremities spontaneously and on command. PSYCH: Somewhat listless but otherwise able to interact appropriately. SKIN: Warm, Dry, normal turgor, no rashes or lesions noted. Course - Re-evaluation Re-evalutation: 05/13/18 1950 Patient presents somewhat lethargic, has apparent Kussmaul's respirations, ill in appearance but in no overt distress. The patient denies focal symptoms other than feeling generally unwell. His Accu-Chek was greater than 600 in triage. Presentation is very worrisome for recurrent diabetic ketoacidosis. Patient will placed on monitor, IV access will be established, 2 L of fluid will be initiated wide-open. Patient is in guarded condition and will be reassessed at regular intervals. 05/13/18 20:20 Laboratories have returned showing moderate diabetic ketoacidosis with a pH of 7.13, ketones in the urine, blood sugar of 675. Anion gap 30, bicarb 7. Potassium is 6.1 so the insulin drip will be initiated without potassium repletion. Fluids are hanging wide open. Patient remains in guarded condition, will continue to reassess at regular intervals. Insulin infusion has been started at 0.14 units/kg/h without titration. Dosing instructions have been clarified with nursing staff directly. Patient will require hospitalization. 05/13/18 20:27 I discussed this case with the hospitalist Dr. Painter who is patient to the intensive care unit. Patient remains clinically unchanged. - Vital Signs Vital signs: Temp Pulse Resp BP Pulse Ox 98.6 F 111 H 28 H 150/92 H 100 05/13/18 23:50 05/13/18 22:30 05/14/18 02:03 05/14/18 02:03 05/14/18 02:03 - Laboratory Result Diagrams: 05/13/18 19:05 05/14/18 02:13 Laboratory results interpreted by me: 05/13/18 05/13/18 05/13/18 17:00 19:05 19:05 RBC 4.22 L MCV 100 H RDW 14.5 H Seg Neutrophils % 86.2 H Lymphocytes % 8.4 L VBG pH VBG pCO2 VBG HCO3 Sodium 130.6 L Potassium 6.1 H* Chloride 93 L Carbon Dioxide 7 L* Anion Gap 31 H BUN 30 H Glucose 675 H* Direct Bilirubin 0.6 H Alkaline Phosphatase 150 H Urine Glucose (UA) >=500 H Urine Ketones 80 H Urine Blood SMALL H 05/13/18 19:35 RBC MCV RDW Seg Neutrophils % Lymphocytes % VBG pH 7.13 L* VBG pCO2 28.7 L VBG HCO3 9.3 L Sodium Potassium Chloride Carbon Dioxide Anion Gap BUN Glucose Direct Bilirubin Alkaline Phosphatase Urine Glucose (UA) Urine Ketones Urine Blood - EKG Interpretation by Me Additional EKG results interpreted by me: 05/14/18 03:00 Sinus tachycardia, rate 106. No ST elevations or depressions. LVH. QTC 484. Critical Care Note - Critical Care Note Total time excluding time spent on procedures (mins): 36 Comments: Critical care time spent obtaining history from patient or surrogate, discussions with consultants, development of treatment plan with patient or surrogate, evaluation of patient's response to treatment, examination of patient, ordering and performing treatments and interventions, ordering and review of laboratory studies, re-evaluation of patient's condition, ordering and review of radiographic studies and review of old charts Discharge - Discharge Clinical Impression: Dehydration DKA (diabetic ketoacidoses) Qualifiers: Diabetes mellitus type: type 1 Diabetes mellitus complication detail: without coma Qualified Code(s): E10.10 - Type 1 diabetes mellitus with ketoacidosis without coma DKA, type 1 Qualifiers: Diabetes mellitus complication detail: without coma Qualified Code(s): E10.10 - Type 1 diabetes mellitus with ketoacidosis without coma Condition: Critical Disposition: ADMITTED INPATIENT Admitting Provider: Inocencio (Hospitalist) Unit Admitted: ICU
[2018-05-13] MEDS ORDERED: ONDANSETRON HCL INJ/PF 4 MG/2 ML SDV IV PRN (20:36)
[2018-05-13] MEDS: HEPARIN SOD (PORCINE) 5,000 UNIT/ML 1 ML SYRINGE SUBCUT SCH ×2 (21:24→21:29)
[2018-05-13] MEDS ORDERED: NORMAL SALINE 1000 ML 1,000 ML IV PRN ×2 (22:12→22:49)
[2018-05-13 22:14] LABS: URINE AMPHETAMINES SCREEN NEGATIVE; URINE BARBITURATES SCREEN NEGATIVE; URINE BENZODIAZEPINES SCREEN NEGATIVE; URINE COCAINE SCREEN NEGATIVE; URINE MARIJUANA (THC) SCREEN NEGATIVE; URINE METHADONE SCREEN NEGATIVE; URINE PHENCYCLIDINE SCREEN NEGATIVE
[2018-05-13] MEDS ORDERED: GLUCAGON,HUMAN RECOMB 1 MG INJ IM PRN (22:30)
[2018-05-13] MEDS ORDERED: INSULIN, REGULAR 100 UNIT/100 ML NORMAL SALINE IV PRN ×2 (22:30)
[2018-05-13] MEDS ORDERED: DEXTROSE 50%-WATER SYRINGE 25 GM/50 ML DOSE IV PRN (22:30)
[2018-05-13] MEDS ORDERED: DEXTROSE 50%-WATER SYRINGE 12.5 GM/25 ML DOSE IV PRN (22:30)
[2018-05-13] MEDS ORDERED: DEXTROSE 40% GEL 15 GM TUBE X 2 PO PRN (22:30)
[2018-05-13] MEDS ORDERED: DEXTROSE 40% GEL 15 GM TUBE PO PRN (22:30)
--- NOTE | 2018-05-13 23:00 | PDOC H&P ---
History of Present Illness Admission Date/PCP: 05/13/18 20:51 [facility] Patient complains of: weakness, ran out of insulin last night History of Present Illness: AMPARO PHAN is a 52 year old man who was diagnosed with diabetes 3 years ago, sees the [facility], cannot afford his insulin. Is on 70/30 30 units BID and metformin. He started feeling poorly a few days ago with weakness and feeling generally bad, no localizing complaints. No chest pain or shortness of breath, no abd pain, no nausea or emesis, no dysuria, no fever. Has signs and symptoms consistent with DKA and is now admitted to the hospitalist for further evaluation and care. 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 Neurological Medical History: Reports: Ischemic CVA Endocrine Medical History: Reports: Diabetes Mellitus Type 1 Malignancy Medical History: Reports: None GI Medical History: Reports: Other - possible hep c, he is not sure Denies: Cirrhosis Musculoskeltal Medical History: Denies: Arthritis, Fibromyalgia Skin Medical History: Denies: Eczema, Psoriasis Psychiatric Medical History: Reports: Tobacco Dependency Denies: Alcohol Dependency, Depression, General Anxiety Disorder, Substance Abuse Hematology: Denies: Anemia, Bleeding Tendencies Infectious Medical History: Reports: Other Infectious History Note: possible hep c, he says one Dr told him he has it and one Dr told him he dosent Past Surgical History Past Surgical History: Reports: Other - right upper lobe resection due to empyema Social History Information Source: Patient, [facility] Records Occupation: not working for many years Lives with: Alone Smoking Status: Current Every Day Smoker Cigarettes Packs Per Day: 0.2 - 5 cigs a day Number of Years Smokin Last Time Smoked: 05/11/2018 Frequency of Alcohol Use: None Last Alcohol Use: 05/14/15 - 3 yrs ago, was heavy user Hx Recreational Drug Use: No Drugs: None Hx Prescription Drug Abuse: No - Advance Directive Resuscitation Status: Full Code Surrogate healthcare decision maker:: sister Tonya, he states her number is in his medical record Family History Family History: DM, Hypertension Parental Family History Reviewed: Yes - dad had DM Children Family History Reviewed: Yes - 3 healthy children Sibling(s) Family History Reviewed.: Yes Medication/Allergy Home Medications: Aspirin [Ecotrin] 81 mg PO DAILY PRN 05/13/18 Insulin Aspart Prot/Insuln Asp [Novolog Mix 70-30 Flexpen Syrn] 30 unit SQ TID 05/13/18 Multivitamin/Iron/Folic Acid [Centrum Adults Tablet] 1 tab PO DAILY 05/13/18 Allergies/Adverse Reactions: No Known Allergies Allergy (Verified 06/08/17 20:19) Review of Systems Constitutional: PRESENT: headache(s), weakness. ABSENT: anorexia, chills, fatigue Eyes: PRESENT: visual disturbances Ears: ABSENT: hearing changes Nose, Mouth, and Throat: ABSENT: mouth pain, sore throat Cardiovascular: ABSENT: chest pain, dyspnea on exertion, edema, orthropnea, palpitations Respiratory: ABSENT: cough, sputum Gastrointestinal: ABSENT: abdominal pain, constipation, diarrhea, heartburn, nausea, vomiting Genitourinary: ABSENT: difficulty urinating, dysuria Musculoskeletal: ABSENT: deformity, joint swelling Integumentary: ABSENT: diaphoresis Neurological: ABSENT: abnormal movements, convulsions, syncope Psychiatric: ABSENT: anxiety, depression Hematologic/Lymphatic: ABSENT: easy bleeding Physical Exam Vital Signs: Temp Pulse Resp BP Pulse Ox 97.5 F 90 18 150/90 H 99 05/13/18 16:27 05/13/18 16:27 05/13/18 16:27 05/13/18 16:27 05/13/18 16:27 Intake & Output 05/12/18 05/13/18 05/14/18 06:59 06:59 06:59 Intake Total 1000 Balance 1000 Weight 51.1 kg General appearance: PRESENT: no acute distress, cooperative, disheveled, thin Head exam: PRESENT: atraumatic, normocephalic Eye exam: PRESENT: conjunctiva pink. ABSENT: conjunctival injection, scleral icterus Ear exam: PRESENT: normal external ear exam Mouth exam: PRESENT: moist, neck supple, tongue midline Neck exam: ABSENT: lymphadenopathy, tracheal deviation Respiratory exam: ABSENT: accessory muscle use, rales, rhonchi, tachypnea, whe ezes Cardiovascular exam: PRESENT: tachycardia. ABSENT: systolic murmur Pulses: PRESENT: normal radial pulses Vascular exam: PRESENT: normal capillary refill GI/Abdominal exam: PRESENT: normal bowel sounds, soft. ABSENT: distended, guarding, tenderness Rectal exam: PRESENT: deferred Gentrourinary exam: ABSENT: indwelling catheter Extremities exam: ABSENT: joint swelling, pedal edema, tenderness Musculoskeletal exam: PRESENT: normal inspection Neurological exam: PRESENT: alert, awake, oriented to person, oriented to place, oriented to situation, CN II-XII grossly intact Psychiatric exam: ABSENT: anxious, depressed Skin exam: PRESENT: dry, intact, warm Results Laboratory Results: 05/13/18 19:05 05/13/18 19:05 05/13/18 05/13/18 05/13/18 17:00 19:05 19:05 WBC 7.0 RBC 4.22 L Hgb 13.8 Hct 42.4 MCV 100 H MCH 32.7 MCHC 32.6 RDW 14.5 H Plt Count 224 Seg Neutrophils % 86.2 H Lymphocytes % 8.4 L Monocytes % 4.7 Eosinophils % 0.1 Basophils % 0.6 Absolute Neutrophils 6.1 Absolute Lymphocytes 0.6 Absolute Monocytes 0.3 Absolute Eosinophils 0.0 Absolute Basophils 0.0 VBG pH VBG pCO2 VBG HCO3 VBG Base Excess Sodium 130.6 L Potassium 6.1 H* Chloride 93 L Carbon Dioxide 7 L* Anion Gap 31 H BUN 30 H Creatinine 1.16 Est GFR ( Amer) > 60 Est GFR (Non-Af Amer) > 60 Glucose 675 H* Calcium 9.8 Total Bilirubin 0.7 AST 47 ALT 53 Alkaline Phosphatase 150 H Total Protein 7.6 Albumin 4.6 Urine Color STRAW Urine Appearance CLEAR Urine pH 5.0 Ur Specific [place] 1.023 Urine Protein NEGATIVE Urine Glucose (UA) >=500 H Urine Ketones 80 H Urine Blood SMALL H Urine Nitrite NEGATIVE Ur Leukocyte Esterase NEGATIVE Urine WBC (Auto) 0 05/13/18 19:35 WBC RBC Hgb Hct MCV MCH MCHC RDW Plt Count Seg Neutrophils % Lymphocytes % Monocytes % Eosinophils % Basophils % Absolute Neutrophils Absolute Lymphocytes Absolute Monocytes Absolute Eosinophils Absolute Basophils VBG pH 7.13 L* VBG pCO2 28.7 L VBG HCO3 9.3 L VBG Base Excess -18.6 Sodium Potassium Chloride Carbon Dioxide Anion Gap BUN Creatinine Est GFR ( Amer) Est GFR (Non-Af Amer) Glucose Calcium Total Bilirubin AST ALT Alkaline Phosphatase Total Protein Albumin Urine Color Urine Appearance Urine pH Ur Specific [place] Urine Protein Urine Glucose (UA) Urine Ketones Urine Blood Urine Nitrite Ur Leukocyte Esterase Urine WBC (Auto) Assessment and Plan - Diagnosis (1) DKA (diabetic ketoacidoses) Qualifiers: Diabetes mellitus type: type 1 Diabetes mellitus complication detail: without coma Qualified Code(s): E10.10 - Type 1 diabetes mellitus with ketoacidosis without coma Is this a current diagnosis for this admission?: Yes Plan: 1. fluids-Pt got one L of LR in ED. I have ordered one L of NS bolus and NS at 250 mL per hour. Will monitor hydration statues and consider NS 1L bolus per hour if indicated. He is making good clear urine and renal function show some dehydration. Not vomiting. Will transition to 1/2 NS once hydrated. 2. K is >6 and so no K added to fluids, will check K q 2 hours and add if indicated. 3. on regular insulin gtt. q 1 hr CBG monitoring 4. BMP q 2 hrs for now, Mag and Phos pending, will repeat VBG later in shift (2) Diabetic neuropathy Qualifiers: Diabetes mellitus type: type 1 Is this a current diagnosis for this admission?: Yes Plan: on gabapentin 600 mg po BID, will start this when DKA is improved and he is taking po well, likely tomorrow (3) Dehydration Is this a current diagnosis for this admission?: Yes Plan: got a liter of LR in ED, I have started NS at 200mL per hour and will watch elizabeth sely with frequent vitals and chem panels, admitted to ICU due to severity of condition (4) Tobacco abuse Is this a current diagnosis for this admission?: Yes Plan: lifelong user, once he feels better we can school adjustment counselor on cessation as I dont think it would be effective currently (5) CAD (coronary artery disease) Is this a current diagnosis for this admission?: Yes Plan: EKG shows anterior infarct age indeterminant, is on a baby ASA daily, will continue that aspirin daily (6) Tachycardia Is this a current diagnosis for this admission?: Yes Plan: due to dehydration and DKA, will cont with NS fluid hydration while in DKA, will place pt on telemetry, given CAD will monitor closely for signs of ischemia (7) Has run out of medications Is this a current diagnosis for this admission?: Yes Plan: due to poverty, states he recently got approved for disability but has not yet started to receive checks, may need SW support - Time Time Spent with patient: 35 or more minutes Medications reviewed and adjusted accordingly: Yes Anticipated discharge: Home Within: Other - Inpatient Certification Based on my medical assessment, after consideration of the patient's comorbidities, presenting symptoms, or acuity I expect that the services needed warrant INPATIENT care.: Yes I certify that my determination is in accordance with my understanding of Medicare's requirements for reasonable and necessary INPATIENT services [42 CFR 412.3e].: Yes Medical Necessity: Need For IV Fluids, Need For Continuous Telemetry Monitoring, Risk of Complication if Not Cared For in Hospital
[2018-05-13] MEDS ORDERED: ACETAMINOPHEN 325 MG TABLET PO PRN (23:02)
[2018-05-13 23:51] LABS: BLOOD UREA NITROGEN 29 mg/dL (7-20); CALCIUM 8.7 mg/dL (8.4-10.2)
[2018-05-13 23:56] LABS: CHLORIDE 102 mmol/L (98-107); SODIUM 134.1 mmol/L (137-145)
[2018-05-14 00:01] LABS: ANION GAP 24 (5-19); POTASSIUM 4.2 mmol/L (3.6-5.0)
[2018-05-14 00:03] LABS: CARBON DIOXIDE 8 mmol/L (22-30); GLUCOSE 443 mg/dL (75-110)
[2018-05-14] MEDS ORDERED: NORMAL SALINE 1000 ML 1,000 ML IV ONE (00:45)
[2018-05-14 02:18] LABS: VENOUS BLOOD BASE EXCESS -9.6 mmol/L; VENOUS BLOOD HCO3 15.8 mmol/L (20-32); VENOUS BLOOD PH 7.3 (7.30-7.42)
[2018-05-14 02:33] LABS: ANION GAP 12 (5-19); BLOOD UREA NITROGEN 23 mg/dL (7-20); CALCIUM 7.9 mg/dL (8.4-10.2); CARBON DIOXIDE 12 mmol/L (22-30); CHLORIDE 115 mmol/L (98-107); GLUCOSE 219 mg/dL (75-110); POTASSIUM 3.5 mmol/L (3.6-5.0); SODIUM 138.6 mmol/L (137-145)
[2018-05-14] MEDS ORDERED: 1/2 NORMAL SALINE 1,000 ML with POTASSIUM CHLORIDE 20 MEQ IV PRN ×2 (02:53)
[2018-05-14] MEDS ORDERED: POTASSI CL 20 MEQ/1/2NS 1L 0 MEQ/0 ML RTUINJ IV ONE (02:59)
[2018-05-14 03:18] LABS: PHOSPHORUS 1.3 mg/dL (2.5-4.5)
[2018-05-14] MEDS ORDERED: POTASSI CL 20 MEQ/D5-1/2NS 1L 1,000 ML IV ONE (03:25)
[2018-05-14] MEDS ORDERED: POTASSI CL 20 MEQ/D5-1/2NS 1L 1000 ML IV PRN (03:26)
[2018-05-14] MEDS: INSULIN REG, HUMAN 100 UNIT/ML 3 ML VIAL (PYX) SUBCUT SCH ×6 (04:11→21:31)
[2018-05-14 04:34] LABS: ANION GAP 5 (5-19); BLOOD UREA NITROGEN 21 mg/dL (7-20); CALCIUM 7.9 mg/dL (8.4-10.2); CARBON DIOXIDE 15 mmol/L (22-30); CHLORIDE 117 mmol/L (98-107); GLUCOSE 154 mg/dL (75-110); POTASSIUM 4.3 mmol/L (3.6-5.0); SODIUM 137.1 mmol/L (137-145)
[2018-05-14] MEDS ORDERED: POTASSI CL 20 MEQ/D5-1/2NS 1L 1,000 ML IV PRN (05:07)
[2018-05-14] MEDS: HEPARIN SOD (PORCINE) 5,000 UNIT/ML 1 ML SYRINGE SUBCUT SCH ×3 (05:31→21:31)
[2018-05-14 06:19] LABS: HEMATOCRIT 32.5 % (37.9-51.0); MEAN CORPUSCULAR HEMOGLOBIN 32.8 pg (27.0-33.4); MEAN CORPUSCULAR HGB CONC 34.6 g/dL (32.0-36.0); PLATELET COUNT 187 10^3/uL (150-450); RED BLOOD COUNT 3.43 10^6/uL (4.35-5.55); WHITE BLOOD COUNT 8.2 10^3/uL (4.0-10.5)
[2018-05-14 06:29] LABS: ANION GAP 11 (5-19); BLOOD UREA NITROGEN 18 mg/dL (7-20); CALCIUM 7.9 mg/dL (8.4-10.2); CARBON DIOXIDE 15 mmol/L (22-30); CHLORIDE 111 mmol/L (98-107); GLUCOSE 240 mg/dL (75-110); LIPASE 49.1 U/L (23-300); PHOSPHORUS 2.2 mg/dL (2.5-4.5); POTASSIUM 4.3 mmol/L (3.6-5.0); SODIUM 136.6 mmol/L (137-145)
[2018-05-14 06:48] LABS: HEMOGLOBIN 11.2 g/dL (13.5-17.0)
[2018-05-14 06:49] LABS: MEAN CORPUSCULAR VOLUME 95 fl (80-97)
--- NOTE | 2018-05-14 06:50 | EKG REPORT ---
SEVERITY:- ABNORMAL ECG - SINUS TACHYCARDIA LEFT VENTRICULAR HYPERTROPHY ANTERIOR INFARCT, AGE INDETERMINATE BORDERLINE PROLONGED QT INTERVAL CONSIDER HYPERKALEMIA : Confirmed by: Brendan Cummings MD 14-May-2018 06:50:12
[2018-05-14 08:32] LABS: ANION GAP 11 (5-19); BLOOD UREA NITROGEN 17 mg/dL (7-20); CALCIUM 7.8 mg/dL (8.4-10.2); CARBON DIOXIDE 16 mmol/L (22-30); CHLORIDE 109 mmol/L (98-107); GLUCOSE 255 mg/dL (75-110); POTASSIUM 4.2 mmol/L (3.6-5.0); SODIUM 135.5 mmol/L (137-145)
[2018-05-14] MEDS ORDERED: GLUCAGON,HUMAN RECOMB 1 MG INJ IM PRN (09:01)
[2018-05-14] MEDS ORDERED: DEXTROSE 50%-WATER 25 GM/50 ML DISP.SYRIN IV PRN ×2 (09:01)
[2018-05-14] MEDS ORDERED: DEXTROSE 40% GEL 15 GM TUBE PO PRN ×2 (09:01)
--- NOTE | 2018-05-14 09:19 | PDOC PROGRESS REPORT ---
Subjective Progress Note for:: 05/14/18 Subjective:: 52 year old man who was diagnosed with diabetes 3 years ago, sees the [facility], cannot afford his insulin. Is on 70/30 30 units BID and metformin. He started feeling poorly a few days ago with weakness and feeling generally bad, no localizing complaints. No chest pain or shortness of breath, no abd pain, no nausea or emesis, no dysuria, no fever. Has signs and symptoms consistent with DKA and is now admitted to the hospitalist for further evaluat ion and care. 05/15/1999 [id number] male admitted with uncontrolled diabetes mellitus no acute events in the last 24 hours. Patient is afebrile. Off the insulin drip. Able to have his breakfast. Started back on his home medications. Blood pressures are stable. Patient can be downgraded to the IMCU. pt does comfortably in the bed communicating well denies any complaints. Reason For Visit: DKA Physical Exam Vital Signs: Temp Pulse Resp BP Pulse Ox 98.2 F 83 14 131/69 H 99 05/14/18 08:00 05/14/18 08:00 05/14/18 08:00 05/14/18 08:00 05/14/18 08:00 Intake & Output 05/13/18 05/14/18 05/15/18 06:59 06:59 06:59 Intake Total 7100 Output Total 925 0 Balance 6175 0 Weight 52.2 kg General appearance: PRESENT: no acute distress, thin Head exam: PRESENT: atraumatic Eye exam: PRESENT: PERRLA Mouth exam: PRESENT: moist, tongue midline Neck exam: ABSENT: carotid bruit, JVD, lymphadenopathy, thyromegaly Respiratory exam: PRESENT: decreased breath sounds Cardiovascular exam: PRESENT: RRR. ABSENT: diastolic murmur, rubs, systolic murmur Pulses: PRESENT: normal dorsalis pedis pul GI/Abdominal exam: PRESENT: normal bowel sounds, soft. ABSENT: distended, guarding, mass, organolmegaly, rebound, tenderness Extremities exam: PRESENT: full ROM. ABSENT: calf tenderness, clubbing, pedal edema Neurological exam: PRESENT: alert Psychiatric exam: PRESENT: appropriate affect, normal mood. ABSENT: homicidal ideation, suicidal ideation Results Laboratory Results: 05/14/18 06:07 05/14/18 08:00 05/13/18 05/13/18 05/13/18 17:00 19:05 19:05 WBC 7.0 RBC 4.22 L Hgb 13.8 Hct 42.4 MCV 100 H MCH 32.7 MCHC 32.6 RDW 14.5 H Plt Count 224 Seg Neutrophils % 86.2 H Lymphocytes % 8.4 L Monocytes % 4.7 Eosinophils % 0.1 Basophils % 0.6 Absolute Neutrophils 6.1 Absolute Lymphocytes 0.6 Absolute Monocytes 0.3 Absolute Eosinophils 0.0 Absolute Basophils 0.0 VBG pH VBG pCO2 VBG HCO3 VBG Base Excess Sodium 130.6 L Potassium 6.1 H* Chloride 93 L Carbon Dioxide 7 L* Anion Gap 31 H BUN 30 H Creatinine 1.16 Est GFR ( Amer) > 60 Est GFR (Non-Af Amer) > 60 Glucose 675 H* Calcium 9.8 Phosphorus Magnesium Total Bilirubin 0.7 AST 47 ALT 53 Alkaline Phosphatase 150 H Total Protein 7.6 Albumin 4.6 Lipase TSH Urine Color STRAW Urine Appearance CLEAR Urine pH 5.0 Ur Specific [place] 1.023 Urine Protein NEGATIVE Urine Glucose (UA) >=500 H Urine Ketones 80 H Urine Blood SMALL H Urine Nitrite NEGATIVE Ur Leukocyte Esterase NEGATIVE Urine WBC (Auto) 0 05/13/18 05/13/18 05/14/18 19:35 23:25 02:13 WBC RBC Hgb Hct MCV MCH MCHC RDW Plt Count Seg Neutrophils % Lymphocytes % Monocytes % Eosinophils % Basophils % Absolute Neutrophils Absolute Lymphocytes Absolute Monocytes Absolute Eosinophils Absolute Basophils VBG pH 7.13 L* VBG pCO2 28.7 L VBG HCO3 9.3 L VBG Base Excess -18.6 Sodium 134.1 L 138.6 Potassium 4.2 D 3.5 L Chloride 102 115 H Carbon Dioxide 8 L* 12 L Anion Gap 24 H 12 BUN 29 H 23 H Creatinine 1.07 0.83 Est GFR ( Amer) > 60 > 60 Est GFR (Non-Af Amer) > 60 > 60 Glucose 443 H* 219 H Calcium 8.7 7.9 L Phosphorus Magnesium Total Bilirubin AST ALT Alkaline Phosphatase Total Protein Albumin Lipase TSH Urine Color Urine Appearance Urine pH Ur Specific [place] Urine Protein Urine Glucose (UA) Urine Ketones Urine Blood Urine Nitrite Ur Leukocyte Esterase Urine WBC (Auto) 05/14/18 05/14/18 05/14/18 02:13 02:13 04:07 WBC RBC Hgb Hct MCV MCH MCHC RDW Plt Count Seg Neutrophils % Lymphocytes % Monocytes % Eosinophils % Basophils % Absolute Neutrophils Absolute Lymphocytes Absolute Monocytes Absolute Eosinophils Absolute Basophils VBG pH 7.30 VBG pCO2 33.0 L VBG HCO3 15.8 L VBG Base Excess -9.6 Sodium Potassium Chloride Carbon Dioxide Anion Gap BUN Creatinine Est GFR ( Amer) Est GFR (Non-Af Amer) Glucose Calcium Phosphorus 1.3 L Magnesium 1.9 Total Bilirubin AST ALT Alkaline Phosphatase Total Protein Albumin Lipase TSH 0.64 Urine Color Urine Appearance Urine pH Ur Specific [place] Urine Protein Urine Glucose (UA) Urine Ketones Urine Blood Urine Nitrite Ur Leukocyte Esterase Urine WBC (Auto) 05/14/18 05/14/18 05/14/18 04:07 06:07 06:07 WBC 8.2 RBC 3.43 L Hgb 11.2 L D Hct 32.5 L MCV 95 D MCH 32.8 MCHC 34.6 RDW 14.0 Plt Count 187 Seg Neutrophils % Lymphocytes % Monocytes % Eosinophils % Basophils % Absolute Neutrophils Absolute Lymphocytes Absolute Monocytes Absolute Eosinophils Absolute Basophils VBG pH VBG pCO2 VBG HCO3 VBG Base Excess Sodium 137.1 136.6 L Potassium 4.3 4.3 Chloride 117 H 111 H Carbon Dioxide 15 L 15 L Anion Gap 5 11 BUN 21 H 18 Creatinine 0.74 0.77 Est GFR ( Amer) > 60 > 60 Est GFR (Non-Af Amer) > 60 > 60 Glucose 154 H 240 H Calcium 7.9 L 7.9 L Phosphorus 2.2 L Magnesium 1.8 Total Bilirubin AST ALT Alkaline Phosphatase Total Protein Albumin Lipase 49.1 TSH Urine Color Urine Appearance Urine pH Ur Specific [place] Urine Protein Urine Glucose (UA) Urine Ketones Urine Blood Urine Nitrite Ur Leukocyte Esterase Urine WBC (Auto) 05/14/18 08:00 WBC RBC Hgb Hct MCV MCH MCHC RDW Plt Count Seg Neutrophils % Lymphocytes % Monocytes % Eosinophils % Basophils % Absolute Neutrophils Absolute Lymphocytes Absolute Monocytes Absolute Eosinophils Absolute Basophils VBG pH VBG pCO2 VBG HCO3 VBG Base Excess Sodium 135.5 L Potassium 4.2 Chloride 109 H Carbon Dioxide 16 L Anion Gap 11 BUN 17 Creatinine 0.69 Est GFR ( Amer) > 60 Est GFR (Non-Af Amer) > 60 Glucose 255 H Calcium 7.8 L Phosphorus Magnesium Total Bilirubin AST ALT Alkaline Phosphatase Total Protein Albumin Lipase TSH Urine Color Urine Appearance Urine pH Ur Specific [place] Urine Protein Urine Glucose (UA) Urine Ketones Urine Blood Urine Nitrite Ur Leukocyte Esterase Urine WBC (Auto) Assessment and Plan - Diagnosis (1) Diabetic ketoacidosis Qualifiers: Diabetes mellitus type: type 1 Diabetes mellitus complication detail: without coma Qualified Code(s): E10.10 - Type 1 diabetes mellitus with ketoacidosis without coma Is this a current diagnosis for this admission?: Yes Plan: 1. fluids-Pt got one L of LR in ED. I have ordered one L of NS bolus and NS at 250 mL per hour. Will monitor hydration statues and consider NS 1L bolus per hour if indicated. He is making good clear urine and renal function show some dehydration. Not vomiting. Will transition to 1/2 NS once hydrated. 2. K is >6 and so no K added to fluids, will check K q 2 hours and add if indicated. 3. on regular insulin gtt. q 1 hr CBG monitoring 4. BMP q 2 hrs for now, Mag and Phos pending, will repeat VBG later in shift 05/14/2018-patient is off the insulin drip patient is off the IV fluids latest blood sugar is 240. Able to tolerate his breakfast this morning. Dietary consult was provided. Plan is to change the blood sugar monitoring to before meals and at bedtime. To restart his home medications from today at lower dose. On lisinopril 10 mg p.o. daily, atorvastatin 10 mg at bedtime. Requested for lipid profile and hemoglobin A1c for tomorrow. Patient has history of type I Dm (2) Diabetic neuropathy Qualifiers: Diabetes mellitus type: type 1 Is this a current diagnosis for this admission?: Yes Plan: on gabapentin 600 mg po BID, will start this when DKA is improved and he is taking po well, likely tomorrow 05/14/2018-patient has a chronic history of diabetic neuropathy on gabapentin denies any complaints this morning. (3) Acute kidney failure Is this a current diagnosis for this admission?: Yes Plan: 05/14/2018-admission serum creatinine is 1.16 and it was improved to 0.69. Acute kidney injury most likely secondary to uncontrolled diabetes mellitus. (4) Tachycardia Is this a current diagnosis for this admission?: Yes Plan: due to dehydration and DKA, will cont with NS fluid hydration while in DKA, will place pt on telemetry, given CAD will monitor closely for signs of ischemia For 07/2018 patient came in with tachycardia with heart rate more than 110 today's heart rate is 83 tachycardia is resolved most likely secondary to dehydration. (5) Hyperkalemia Is this a current diagnosis for this admission?: Yes Plan: 05/14/2018-on admission serum potassium level is 6.2 came down to 4.3 today hyperkalemia most likely secondary to uncontrolled diabetes mellitus resolved. (6) Abnormal liver function test Is this a current diagnosis for this admission?: Yes Plan: 05/14/2018-and came in with elevated liver enzymes hepatitis profile was requested report is pending. - Time Time Spent with patient: 25-34 minutes Smoking Cessation Education: over 10 minutes Medications reviewed and adjusted accordingly: Yes Anticipated discharge: Home
[2018-05-14 10:23] LABS: ANION GAP 5 (5-19); BLOOD UREA NITROGEN 16 mg/dL (7-20); CALCIUM 8.1 mg/dL (8.4-10.2); CARBON DIOXIDE 21 mmol/L (22-30); CHLORIDE 108 mmol/L (98-107); GLUCOSE 274 mg/dL (75-110); SODIUM 134.1 mmol/L (137-145)
[2018-05-14] MEDS: FAMOTIDINE 20 MG TABLET PO SCH ×2 (10:27→21:34)
[2018-05-14] MEDS: LISINOPRIL 10 MG TABLET PO SCH (10:27)
[2018-05-14] MEDS: HUM INSULIN NPH/REG INSULIN HM 100 UNIT/1 ML 3 ML SUBCUT SCH ×3 (10:27→21:35)
[2018-05-14] MEDS: MULTIVITAMIN TABLET PO SCH (10:27)
[2018-05-14] MEDS: ASPIRIN 81 MG TABLET, ENT COATED PO SCH (10:27)
[2018-05-14] MEDS ORDERED: HUM INSULIN NPH/REG INSULIN HM 100 UNIT/1 ML 3 ML SUBCUT SCH (17:00)
[2018-05-14] MEDS: ATORVASTATIN CALCIUM 10 MG TABLET PO SCH (21:34)
[2018-05-15] MEDS: HEPARIN SOD (PORCINE) 5,000 UNIT/ML 1 ML SYRINGE SUBCUT SCH ×3 (05:26→22:38)
[2018-05-15 06:49] LABS: ABSOLUTE EOSINOPHILS # (AUTO) 0.2 10^3/uL (0.0-0.6); ABSOLUTE LYMPHOCYTES (AUTO) 1.5 10^3/uL (0.5-4.7); ABSOLUTE MONOCYTES (AUTO) 0.4 10^3/uL (0.1-1.4); BASOPHILS % (AUTO) 0.7 % (0-2); EOSINOPHILS % (AUTO) 2.7 % (0-6); HEMATOCRIT 33.7 % (37.9-51.0); HEMOGLOBIN 11.7 g/dL (13.5-17.0); LYMPHOCYTES % (AUTO) 24.3 % (13-45); MEAN CORPUSCULAR HEMOGLOBIN 32.8 pg (27.0-33.4); MEAN CORPUSCULAR HGB CONC 34.8 g/dL (32.0-36.0); MEAN CORPUSCULAR VOLUME 94 fl (80-97); MONOCYTES % (AUTO) 6.6 % (3-13); PLATELET COUNT 156 10^3/uL (150-450); RED BLOOD COUNT 3.58 10^6/uL (4.35-5.55); SEGMENTED NEUTROPHILS % (AUTO) 65.7 % (42-78); TOTAL CELLS COUNTED % (AUTO) 100 %; WHITE BLOOD COUNT 6.1 10^3/uL (4.0-10.5)
[2018-05-15 07:13] LABS: ALANINE AMINOTRANSFERASE 61 U/L (21-72); ALBUMIN 2.7 g/dL (3.5-5.0); ALKALINE PHOSPHATASE 87 U/L (38-126); ANION GAP 5 (5-19); ASPARTATE AMINO TRANSFERASE 105 U/L (17-59); BILIRUBIN,DIRECT 0.3 mg/dL (0.0-0.4); BILIRUBIN,TOTAL 0.4 mg/dL (0.2-1.3); BLOOD UREA NITROGEN 9 mg/dL (7-20); CALCIUM 8.4 mg/dL (8.4-10.2); CARBON DIOXIDE 25 mmol/L (22-30); CHLORIDE 105 mmol/L (98-107); CHOLESTEROL 100.54 mg/dL (0-200); GLUCOSE 161 mg/dL (75-110); SODIUM 135.4 mmol/L (137-145); TOTAL PROTEIN 5.3 g/dL (6.3-8.2); TRIGLYCERIDES 129 mg/dL (<150)
[2018-05-15 07:24] LABS: DIRECT LDL 50 mg/dL (<100)
[2018-05-15 07:25] LABS: POTASSIUM 3.1 mmol/L (3.6-5.0)
[2018-05-15] MEDS: HUM INSULIN NPH/REG INSULIN HM 100 UNIT/1 ML 3 ML SUBCUT SCH ×3 (07:57→22:40)
[2018-05-15] MEDS: INSULIN REG, HUMAN 100 UNIT/ML 3 ML VIAL (PYX) SUBCUT SCH ×4 (07:57→22:39)
[2018-05-15 08:37] LABS: HEPATITIS A AB IGM Negative (Negative); HEPATITIS B CORE AB IGM Negative (Negative); HEPATITS B SURFACE ANTIGEN Negative (Negative)
[2018-05-15] MEDS: LISINOPRIL 10 MG TABLET PO SCH ×2 (09:20→10:25)
[2018-05-15] MEDS: ASPIRIN 81 MG TABLET, ENT COATED PO SCH (09:20)
[2018-05-15] MEDS: FAMOTIDINE 20 MG TABLET PO SCH ×2 (09:20→22:38)
[2018-05-15] MEDS: MULTIVITAMIN TABLET PO SCH (09:20)
[2018-05-15 10:08] LABS: HEPATITIS C VIRUS ANTIBODY >11.0 s/co ratio (0.0-0.9)
[2018-05-15] MEDS ORDERED: POTASSIUM CHLORIDE 10 MEQ CAPSULE.ER PO ONE (10:10)
--- NOTE | 2018-05-15 10:23 | PDOC PROGRESS REPORT ---
Subjective Progress Note for:: 05/15/18 Subjective:: 52 year old man who was diagnosed with diabetes 3 years ago, sees the [facility], cannot afford his insulin. Is on 70/30 30 units BID and metformin. He started feeling poorly a few days ago with weakness and feeling generally bad, no localizing complaints. No chest pain or shortness of breath, no abd pain, no nausea or emesis, no dysuria, no fever. Has signs and symptoms consistent with DKA and is now admitted to the hospitalist for further evaluat ion and care. 05/14/2018 52-year-old male admitted with uncontrolled diabetes mellitus no acute events in the last 24 hours. Patient is afebrile. Off the insulin drip. Able to have his breakfast. Started back on his home medications. Blood pressures are stable. Patient can be downgraded to the IMCU. pt does comfortably in the bed communicating well denies any complaints. 05/[id number]-old male admitted with uncontrolled diabetes mellitus. No acute events in the last 24 hours. Patient is afebrile. Patient's latest blood sugar is 217. Off the insulin drip. hemo Globin A1c came back 10.8. Plan is to downgrade him to telemetry today. Reason For Visit: DKA Physical Exam Vital Signs: Temp Pulse Resp BP Pulse Ox 98.6 F 61 16 171/96 H 100 05/15/18 07:00 05/15/18 07:38 05/15/18 07:00 05/15/18 07:00 05/14/18 16:51 Intake & Output 05/14/18 05/15/18 05/16/18 06:59 06:59 06:59 Intake Total 7100 1800 Output Total 925 920 Balance 6175 880 Weight 52.2 kg 55.8 kg General appearance: PRESENT: no acute distress, thin Head exam: PRESENT: atraumatic Eye exam: PRESENT: PERRLA Mouth exam: PRESENT: moist, tongue midline Neck exam: ABSENT: carotid bruit, JVD, lymphadenopathy, thyromegaly Respiratory exam: PRESENT: decreased breath sounds Cardiovascular exam: PRESENT: RRR. ABSENT: diastolic murmur, rubs, systolic murmur GI/Abdominal exam: PRESENT: normal bowel sounds, soft. ABSENT: distended, guarding, mass, organolmegaly, rebound, tenderness Extremities exam: PRESENT: full ROM. ABSENT: calf tenderness, clubbing, pedal edema Neurological exam: PRESENT: alert, awake, oriented to person, oriented to place, oriented to time, oriented to situation, CN II-XII grossly intact. ABSENT: motor sensory deficit Psychiatric exam: PRESENT: appropriate affect, normal mood. ABSENT: homicidal ideation, suicidal ideation Results Laboratory Results: 05/15/18 05:50 05/15/18 05:50 05/14/18 05/15/18 05/15/18 09:55 05:50 05:50 WBC 6.1 RBC 3.58 L Hgb 11.7 L Hct 33.7 L MCV 94 MCH 32.8 MCHC 34.8 RDW 14.0 Plt Count 156 Seg Neutrophils % 65.7 Lymphocytes % 24.3 Monocytes % 6.6 Eosinophils % 2.7 Basophils % 0.7 Absolute Neutrophils 4.0 Absolute Lymphocytes 1.5 Absolute Monocytes 0.4 Absolute Eosinophils 0.2 Absolute Basophils 0.0 Sodium 134.1 L 135.4 L Potassium 4.0 3.1 L Chloride 108 H 105 Carbon Dioxide 21 L 25 Anion Gap 5 5 BUN 16 9 Creatinine 0.77 0.62 Est GFR ( Amer) > 60 > 60 Est GFR (Non-Af Amer) > 60 > 60 Glucose 274 H 161 H Calcium 8.1 L 8.4 Magnesium 1.9 Total Bilirubin 0.4 AST 105 H ALT 61 Alkaline Phosphatase 87 Total Protein 5.3 L Albumin 2.7 L Triglycerides 129 Cholesterol 100.54 LDL Cholesterol Direct 50 VLDL Cholesterol 26.0 HDL Cholesterol 49 Assessment and Plan - Diagnosis (1) Diabetic ketoacidosis Qualifiers: Diabetes mellitus type: type 1 Diabetes mellitus complication detail: without coma Qualified Code(s): E10.10 - Type 1 diabetes mellitus with ke toacidosis without coma Is this a current diagnosis for this admission?: Yes Plan: 1. fluids-Pt got one L of LR in ED. I have ordered one L of NS bolus and NS at 250 mL per hour. Will monitor hydration statues and consider NS 1L bolus per ho ur if indicated. He is making good clear urine and renal function show some dehydration. Not vomiting. Will transition to 1/2 NS once hydrated. 2. K is >6 and so no K added to fluids, will check K q 2 hours and add if indicated. 3. on regular insulin gtt. q 1 hr CBG monitoring 4. BMP q 2 hrs for now, Mag and Phos pending, will repeat VBG later in shift 05/14/2018-patient is off the insulin drip patient is off the IV fluids latest blood sugar is 240. Able to tolerate his breakfast this morning. Dietary consult was provided. Plan is to change the blood sugar monitoring to before meals and at bedtime. To restart his home medications from today at lower dose. On lisinopril 10 mg p.o. daily, atorvastatin 10 mg at bedtime. Requested for lipid profile and hemoglobin A1c for tomorrow. Patient has history of type I Dm 05/15/[id number]-[id number]-old male with history of type 1 diabetes mellitus came to the emergency room with high blood sugars. He has not on normal anion gap metabolic acidosis. Initially on insulin drip presently on insulin 40 units 3 times a day along with insulin sliding scale before meals and at bedtime. Blood sugar is 217 hemoglobin A1c is 10.8. Diet exercise lifestyle modifications discussed with the patient. Dietary consult was requested. Patient can go to the medical floor. (2) Diabetic neuropathy Qualifiers: Diabetes mellitus type: type 1 Is this a current diagnosis for this admission?: Yes Plan: on gabapentin 600 mg po BID, will start this when DKA is improved and he is taking po well, likely tomorrow 05/14/2018-patient has a chronic history of diabetic neuropathy on gabapentin denies any complaints this morning. 05/15/2018-patient has history of diabetic neuropathy affecting the lower extremities is on gabapentin 60 mg p.o. twice daily plan is to continue the present management. (3) Acute kidney failure Is this a current diagnosis for this admission?: Yes Plan: 05/14/2018-admission serum creatinine is 1.16 and it was improved to 0.69. Acute kidney injury most likely secondary to uncontrolled diabetes mellitus. 05/15/2018-on admission patient's creatinine is 1.16 improved to 0.63 today acute kidney injury most likely secondary to prerenal causes resolved. (4) Tachycardia Is this a current diagnosis for this admission?: Yes Plan: due to dehydration and DKA, will cont with NS fluid hydration while in DKA, will place pt on telemetry, given CAD will monitor closely for signs of ischemia For 07/2018 patient came in with tachycardia with heart rate more than 110 today's heart rate is 83 tachycardia is resolved most likely secondary to dehydration. 05/15/2018-patient came in with heart rate of more than 110 most likely secondary to dehydration. Today's heart rate is 61, tachycardia is resolved. (5) Hyperkalemia Is this a current diagnosis for this admission?: Yes Plan: 05/14/2018-on admission serum potassium level is 6.2 came down to 4.3 today hyperkalemia most likely secondary to uncontrolled diabetes mellitus resolved. 05/15/2018-patient came in with serum potassium of 6.2 and hyperkalemia is resolved today's potassium level is 3.1 to give 40 mg of p.o. potassium today. (6) Abnormal liver function test Is this a current diagnosis for this admission?: Yes Plan: 05/14/2018-and came in with elevated liver enzymes hepatitis profile was requested report is pending. 05/15/2018-patient came in with elevated liver enzymes, hepatitis C antibody came back positive. (8) Hypertension Is this a current diagnosis for this admission?: No Plan: 05/15/2018-patient has history of hypertension presently on lisinopril 10 mg p.o. daily blood pressure this morning is 171/96. Plan is to increase the lisinopril to 20 mg daily and added hydrochlorothiazide 12.5 mg p.o. twice daily. Low sodi um diet is recommended. - Time Time Spent with patient: 15-24 minutes Medications reviewed and adjusted accordingly: Yes Anticipated discharge: Home
[2018-05-15] MEDS: HYDROCHLOROTHIAZIDE 12.5 MG TABLET PO SCH ×2 (10:25→22:38)
[2018-05-15] MEDS ORDERED: AMLODIPINE BESYLATE 5 MG TABLET PO ONE (12:52)
[2018-05-15] MEDS ORDERED: HYDRALAZINE HCL INJ/PF 20 MG/1 ML SDV IV PRN (12:53)
--- NOTE | 2018-05-15 15:54 | RADIOLOGY REPORT (SQ) ---
EXAM DESCRIPTION: CHEST 2 VIEWS COMPLETED DATE/TIME: 05/15/2018 1:06 pm REASON FOR STUDY: shortness of breath COMPARISON: 04/09/2018 EXAM PARAMETERS: NUMBER OF VIEWS: two views TECHNIQUE: Digital Frontal and Lateral radiographic views of the chest acquired. RADIATION DOSE: NA LIMITATIONS: none FINDINGS: LUNGS AND PLEURA: Postsurgical changes right lung. No opacities, masses or pneumothorax. No pleural effusion. MEDIASTINUM AND HILAR STRUCTURES: No masses or contour abnormalities. HEART AND VASCULAR STRUCTURES: Heart normal size. No evidence for failure. BONES: No acute findings. HARDWARE: None in the chest. OTHER: No other significant finding. IMPRESSION: NO ACUTE RADIOGRAPHIC FINDING IN THE CHEST. TECHNICAL DOCUMENTATION: JOB ID: [id number] [employer]- All Rights Reserved Reading location - IP/workstation name: [email or web address]
[2018-05-15] MEDS: ATORVASTATIN CALCIUM 10 MG TABLET PO SCH (22:38)
[2018-05-16] MEDS: HEPARIN SOD (PORCINE) 5,000 UNIT/ML 1 ML SYRINGE SUBCUT SCH ×3 (05:47→21:46)
[2018-05-16] MEDS: INSULIN REG, HUMAN 100 UNIT/ML 3 ML VIAL (PYX) SUBCUT SCH ×4 (08:31→21:44)
[2018-05-16] MEDS: HUM INSULIN NPH/REG INSULIN HM 100 UNIT/1 ML 3 ML SUBCUT SCH ×3 (08:31→21:45)
[2018-05-16] MEDS: MULTIVITAMIN TABLET PO SCH (09:10)
[2018-05-16] MEDS: HYDROCHLOROTHIAZIDE 12.5 MG TABLET PO SCH ×2 (09:10→21:46)
[2018-05-16] MEDS: FAMOTIDINE 20 MG TABLET PO SCH ×2 (09:10→21:47)
[2018-05-16] MEDS: ASPIRIN 81 MG TABLET, ENT COATED PO SCH (09:11)
[2018-05-16] MEDS: LISINOPRIL 10 MG TABLET PO SCH (09:11)
[2018-05-16 09:33] LABS: ALANINE AMINOTRANSFERASE 56 U/L (21-72); ALBUMIN 3.2 g/dL (3.5-5.0); ALKALINE PHOSPHATASE 96 U/L (38-126); ANION GAP 6 (5-19); ASPARTATE AMINO TRANSFERASE 51 U/L (17-59); BILIRUBIN,DIRECT 0.2 mg/dL (0.0-0.4); BILIRUBIN,TOTAL 0.5 mg/dL (0.2-1.3); BLOOD UREA NITROGEN 11 mg/dL (7-20); CALCIUM 9.4 mg/dL (8.4-10.2); CARBON DIOXIDE 32 mmol/L (22-30); CHLORIDE 94 mmol/L (98-107); GLUCOSE 238 mg/dL (75-110); POTASSIUM 3.8 mmol/L (3.6-5.0); TOTAL PROTEIN 5.9 g/dL (6.3-8.2)
--- NOTE | 2018-05-16 10:46 | PDOC PROGRESS REPORT ---
Subjective Progress Note for:: 05/16/18 Subjective:: 52 year old man who was diagnosed with diabetes 3 years ago, sees the [facility], cannot afford his insulin. Is on 70/30 30 units BID and metformin. He started feeling poorly a few days ago with weakness and feeling generally bad, no localizing complaints. No chest pain or shortness of breath, no abd pain, no nausea or emesis, no dysuria, no fever. Has signs and symptoms consistent with DKA and is now admitted to the hospitalist for further evaluat ion and care. 05/14/2018 52-year-old male admitted with uncontrolled diabetes mellitus no acute events in the last 24 hours. Patient is afebrile. Off the insulin drip. Able to have his breakfast. Started back on his home medications. Blood pressures are stable. Patient can be downgraded to the IMCU. pt does comfortably in the bed communicating well denies any complaints. 05/[id number]-royy-old male admitted with uncontrolled diabetes mellitus. No acute events in the last 24 hours. Patient is afebrile. Patient's latest blood sugar is 217. Off the insulin drip. hemo Globin A1c came back 10.8. Plan is to downgrade him to telemetry today. 05/[id number]-gwky-old male admitted for uncontrolled diabetes mellitus. doing Well. No acute events. Patient was downgraded to the medical floor waiting for the bed. Reason For Visit: DKA Physical Exam Vital Signs: Temp Pulse Resp BP Pulse Ox 98.0 F 68 16 141/96 H 100 05/16/18 07:00 05/16/18 07:00 05/16/18 07:00 05/16/18 07:00 05/14/18 16:51 Intake & Output 05/15/18 05/16/18 05/17/18 06:59 06:59 06:59 Intake Total 1800 400 Output Total 920 2250 Balance 880 -1850 Weight 55.8 kg 53.5 kg General appearance: PRESENT: no acute distress, thin Head exam: PRESENT: atraumatic Eye exam: PRESENT: PERRLA Neck exam: ABSENT: carotid bruit, JVD, lymphadenopathy, thyromegaly Respiratory exam: PRESENT: clear to auscultation baldemar. ABSENT: rales, rhonchi, wheezes Cardiovascular exam: PRESENT: tachycardia GI/Abdominal exam: PRESENT: normal bowel sounds, soft. ABSENT: distended, guarding, mass, organolmegaly, rebound, tenderness Extremities exam: PRESENT: full ROM. ABSENT: calf tenderness, clubbing, pedal e isatu Neurological exam: PRESENT: alert, awake, oriented to person, oriented to place, oriented to time, oriented to situation, CN II-XII grossly intact. ABSENT: motor sensory deficit Psychiatric exam: PRESENT: appropriate affect, normal mood. ABSENT: homicidal ideation, suicidal ideation Results Laboratory Results: 05/15/18 05:50 05/16/18 08:40 05/16/18 08:40 Sodium 132.0 L Potassium 3.8 Chloride 94 L Carbon Dioxide 32 H Anion Gap 6 BUN 11 Creatinine 0.70 Est GFR ( Amer) > 60 Est GFR (Non-Af Amer) > 60 Glucose 238 H Calcium 9.4 Total Bilirubin 0.5 AST 51 ALT 56 Alkaline Phosphatase 96 Total Protein 5.9 L Albumin 3.2 L Impressions: Chest X-Ray 05/15/18 00:00 IMPRESSION: NO ACUTE RADIOGRAPHIC FINDING IN THE CHEST. Assessment and Plan - Diagnosis (1) Diabetic ketoacidosis Qualifiers: Diabetes mellitus type: type 1 Diabetes mellitus complication detail: without coma Qualified Code(s): E10.10 - Type 1 diabetes mellitus with ketoacidosis without coma Is this a current diagnosis for this admission?: Yes Plan: 1. fluids-Pt got one L of LR in ED. I have ordered one L of NS bolus and NS at 250 mL per hour. Will monitor hydration statues and consider NS 1L bolus per hour if indicated. He is making good clear urine and renal function show some dehydration. Not vomiting. Will transition to 1/2 NS once hydrated. 2. K is >6 and so no K added to fluids, will check K q 2 hours and add if indicated. 3. on regular insulin gtt. q 1 hr CBG monitoring 4. BMP q 2 hrs for now, Mag and Phos pending, will repeat VBG later in shift 05/14/2018-patient is off the insulin drip patient is off the IV fluids latest blood sugar is 240. Able to tolerate his breakfast this morning. Dietary c onsult was provided. Plan is to change the blood sugar monitoring to before meals and at bedtime. To restart his home medications from today at lower dose. On lisinopril 10 mg p.o. daily, atorvastatin 10 mg at bedtime. Requested for lipid profile and hemoglobin A1c for tomorrow. Patient has history of type I Dm 05/15/[id number]-ydro-old male with history of type 1 diabetes mellitus came to the emergency room with high blood sugars. He has not on normal anion gap metabolic acidosis. Initially on insulin drip presently on insulin 40 units 3 times a day along with insulin sliding scale before meals and at bedtime. Blood sugar is 217 hemoglobin A1c is 10.8. Diet exercise lifestyle modifications discussed with the patient. Dietary consult was requested. Patient can go to the medical floor. 05/16/2018-L with a history of type 1 diabetes mellitus admitted to the emergency room with high blood sugars he is unable to afford his medications and is not taking medications for a long time. At the time of admission he has a normal anion gap metabolic acidosis. He received IV bicarb and anion gap acidosis this is real.. And is presently on insulin 20 units 3 times a day along with insulin sliding scale. Blood sugar this morning is 215. Relatively controlled. Patient hemoglobin A1c is 10.8. Dietary consult was requested and today also dietary advice was provided. (2) Diabetic neuropathy Qualifiers: Diabetes mellitus type: type 1 Is this a current diagnosis for this admission?: Yes Plan: on gabapentin 600 mg po BID, will start this when DKA is improved and he is taking po well, likely tomorrow 05/14/2018-patient has a chronic history of diabetic neuropathy on gabapentin denies any complaints this morning. 05/15/2018-patient has history of diabetic neuropathy affecting the lower extremities is on gabapentin 600 mg p.o. twice daily plan is to continue the present management. 05/16/2018-patient has history of long-standing diabetes mellitus with complication of diabetic neuropathy. He complains of chronic tingling and paresthesia in the lower extremities receiving gabapentin 600 mg p.o. twice a day. Symptoms are relatively controlled. (3) Acute kidney failure Is this a current diagnosis for this admission?: Yes Plan: 05/14/2018-admission serum creatinine is 1.16 and it was improved to 0.69. Acute kidney injury most likely secondary to uncontrolled diabetes mellitus. 05/15/2018-on admission patient's creatinine is 1.16 improved to 0.63 today acute kidney injury most likely secondary to prerenal causes resolved. 05/16/2018-patient's admission creatinine is 1.16 at improved to 12.7 acute kidney injury most likely secondary to prerenal causes resolved. (4) Tachycardia Is this a current diagnosis for this admission?: Yes Plan: due to dehydration and DKA, will cont with NS fluid hydration while in DKA, will place pt on telemetry, given CAD will monitor closely for signs of ischemia For 07/2018 patient came in with tachycardia with heart rate more than 110 today's heart rate is 83 tachycardia is resolved most likely secondary to dehydration. 05/15/2018-patient came in with heart rate of more than 110 most likely secondary to dehydration. Today's heart rate is 61, tachycardia is resolved. 05/16/2018-patient's heart rate today is 58 today is tachycardia due to severe dehydration resolved. (5) Hyperkalemia Is this a current diagnosis for this admission?: Yes Plan: 05/14/2018-on admission serum potassium level is 6.2 came down to 4.3 today hyperkalemia most likely secondary to uncontrolled diabetes mellitus resolved. 05/15/2018-patient came in with serum potassium of 6.2 and hyperkalemia is resolved today's potassium level is 3.1 to give 40 mg of p.o. potassium today. 05/16/2018-pt came in with high potassium was 6.2 his potassium level today is 3.8 and hyperkalemia is resolved. (6) Abnormal liver function test Is this a current diagnosis for this admission?: Yes Plan: 05/14/2018-and came in with elevated liver enzymes hepatitis profile was requested report is pending. 05/15/2018-patient came in with elevated liver enzymes, hepatitis C antibody came back positive. 05/16/2018-patient came in with elevated LFTs hepatitis profile shows positive for hepatitis C. at the time of discharge will make arrangements for him to see the data capture specialist. (7) Hypertension Is this a current diagnosis for this admission?: No Plan: 05/15/2018-patient has history of hypertension presently on lisinopril 10 mg p.o. daily blood pressure this morning is 171/96. Plan is to increase the lisinopril to 20 mg daily and added hydrochlorothiazide 12.5 mg p.o. twice daily. Low sodium diet is recommended. 05/16/2018-patient blood pressure today is 141/98. Presently on lisinopril 20 mg daily, hydrochlorothiazide 12.5 mg p.o. twice daily, amlodipine 5 mg p.o. daily. Plan is to continue the present management. (8) Hyponatremia Is this a current diagnosis for this admission?: Yes Plan: 05/26/2018-serum sodium level is 132 today. With a glucose of 215. Corrected serum sodium is around 133.8. Hyponatremia most likely secondary to poor oral intake. Plan is to recheck the labs tomorrow. - Time Time Spent with patient: 15-24 minutes Smoking Cessation Education: over 10 minutes Medications reviewed and adjusted accordingly: Yes Anticipated discharge: Home
[2018-05-16] MEDS: ATORVASTATIN CALCIUM 10 MG TABLET PO SCH (21:47)
[2018-05-17] MEDS: HEPARIN SOD (PORCINE) 5,000 UNIT/ML 1 ML SYRINGE SUBCUT SCH (05:38)
[2018-05-17 06:32] LABS: ABSOLUTE EOSINOPHILS # (AUTO) 0.1 10^3/uL (0.0-0.6); ABSOLUTE LYMPHOCYTES (AUTO) 1.1 10^3/uL (0.5-4.7); ABSOLUTE MONOCYTES (AUTO) 0.6 10^3/uL (0.1-1.4); ABSOLUTE NEUT (AUTO) 2.8 10^3/uL (1.7-8.2); EOSINOPHILS % (AUTO) 2.5 % (0-6); HEMATOCRIT 35.4 % (37.9-51.0); HEMOGLOBIN 12.2 g/dL (13.5-17.0); LYMPHOCYTES % (AUTO) 23.7 % (13-45); MEAN CORPUSCULAR HEMOGLOBIN 32.5 pg (27.0-33.4); MEAN CORPUSCULAR HGB CONC 34.4 g/dL (32.0-36.0); MEAN CORPUSCULAR VOLUME 94 fl (80-97); MONOCYTES % (AUTO) 11.8 % (3-13); PLATELET COUNT 151 10^3/uL (150-450); RED BLOOD COUNT 3.75 10^6/uL (4.35-5.55); RED CELL DISTRIBUTION WIDTH 13.8 % (11.5-14.0); TOTAL CELLS COUNTED % (AUTO) 100 %; WHITE BLOOD COUNT 4.7 10^3/uL (4.0-10.5)
[2018-05-17 06:56] LABS: ALANINE AMINOTRANSFERASE 58 U/L (21-72); ALKALINE PHOSPHATASE 87 U/L (38-126); ANION GAP 5 (5-19); ASPARTATE AMINO TRANSFERASE 69 U/L (17-59); BILIRUBIN,DIRECT 0.2 mg/dL (0.0-0.4); BILIRUBIN,TOTAL 0.2 mg/dL (0.2-1.3); BLOOD UREA NITROGEN 21 mg/dL (7-20); CALCIUM 9.4 mg/dL (8.4-10.2); CARBON DIOXIDE 36 mmol/L (22-30); CHLORIDE 91 mmol/L (98-107); GLUCOSE 195 mg/dL (75-110); POTASSIUM 3.7 mmol/L (3.6-5.0); SODIUM 132.3 mmol/L (137-145); TOTAL PROTEIN 5.7 g/dL (6.3-8.2)
[2018-05-17] MEDS: HUM INSULIN NPH/REG INSULIN HM 100 UNIT/1 ML 3 ML SUBCUT SCH ×2 (07:38→11:32)
[2018-05-17] MEDS: INSULIN REG, HUMAN 100 UNIT/ML 3 ML VIAL (PYX) SUBCUT SCH ×2 (07:39→11:32)
[2018-05-17] MEDS: HYDROCHLOROTHIAZIDE 12.5 MG TABLET PO SCH (09:00)
[2018-05-17] MEDS: FAMOTIDINE 20 MG TABLET PO SCH (09:01)
[2018-05-17] MEDS: MULTIVITAMIN TABLET PO SCH (09:01)
[2018-05-17] MEDS: LISINOPRIL 10 MG TABLET PO SCH (09:01)
[2018-05-17] MEDS: ASPIRIN 81 MG TABLET, ENT COATED PO SCH (09:01)
[2018-05-17 11:43] VITALS: BP 141/96
--- NOTE | 2018-05-17 15:59 | PDOC DISCHARGE SUMMARY ---
General - Admit/Disc Date/PCP Admission Date/Primary Care Provider: 05/13/18 20:51 Discharge Date: 05/17/18 - Discharge Diagnosis (1) DKA (diabetic ketoacidoses) Is this a current diagnosis for this admission?: Yes Summary: Responded to insulin drip and IV fluids and electrolyte supplementation. We made sure he was going to be able to get his insulin at the community clinic prior to discharge. - Additional Information Resuscitation Status: Full Code Discharge Diet: Diabetic Discharge Activity: Activity As Tolerated Prescriptions: Lisinopril [Prinivil 10 mg Tablet] 20 mg PO DAILY #60 tablet Home Medications: Aspirin [Ecotrin] 81 mg PO DAILY PRN 05/13/18 Insulin Aspart Prot/Insuln Asp [Novolog Mix 70-30 Flexpen Syrn] 30 unit SQ TID 05/13/18 Multivitamin/Iron/Folic Acid [Centrum Adults Tablet] 1 tab PO DAILY 05/13/18 Lisinopril [Prinivil 10 mg Tablet] 20 mg PO DAILY #60 tablet 05/17/18 History of Present Illness History of Present Illness: AMPARO PHAN is a 52 year old male who was diagnosed with diabetes 3 years ago, sees the [facility], cannot afford his insulin. Is on 70/30 30 units BID and metformin. He started feeling poorly a few days ago with weakness and feeling generally bad, no localizing complaints. No chest pain or shortness of breath, no abd pain, no nausea or emesis, no dysuria, no fever. Has signs and symptoms consistent with DKA and is now admitted to the hospitalist for further evaluation and care. Hospital Course Hospital Course: He responded well to IV insulin and IV fluids. Were able to transition him back over to subcutaneous insulin. We made sure that he would be able to get his insulin from the community clinic. When he leaves the hospital today, he is going over to the clinic to get his insulin because they have it there for him. His labs and examination were reassuring and he was discharged in good condition. Physical Exam Vital Signs: Temp Pulse Resp BP Pulse Ox 98.6 F 71 17 141/96 H 100 05/17/18 11:41 05/17/18 11:41 05/17/18 11:41 05/17/18 11:41 05/17/18 11:41 Intake & Output 05/16/18 05/17/18 05/18/18 06:59 06:59 06:59 Intake Total 400 350 667 Output Total 2250 Balance -1850 350 667 Weight 53.5 kg 53 kg General appearance: PRESENT: no acute distress, thin Head exam: PRESENT: atraumatic Eye exam: PRESENT: PERRLA Neck exam: ABSENT: carotid bruit, JVD, lymphadenopathy, thyromegaly Respiratory exam: PRESENT: clear to auscultation baldemar. ABSENT: rales, rhonchi, wheezes Cardiovascular exam: PRESENT: tachycardia GI/Abdominal exam: PRESENT: normal bowel sounds, soft. ABSENT: distended, guarding, mass, organolmegaly, rebound, tenderness Extremities exam: PRESENT: full ROM. ABSENT: calf tenderness, clubbing, pedal edema Neurological exam: PRESENT: alert, awake, oriented to person, oriented to place, oriented to time, oriented to situation, CN II-XII grossly intact. ABSENT: motor sensory deficit Psychiatric exam: PRESENT: appropriate affect, normal mood. ABSENT: homicidal ideation, suicidal ideation Results Laboratory Results: 05/17/18 05:40 05/17/18 05:40 05/17/18 05/17/18 05:40 05:40 WBC 4.7 RBC 3.75 L Hgb 12.2 L Hct 35.4 L MCV 94 MCH 32.5 MCHC 34.4 RDW 13.8 Plt Count 151 Seg Neutrophils % 61.0 Lymphocytes % 23.7 Monocytes % 11.8 Eosinophils % 2.5 Basophils % 1.0 Absolute Neutrophils 2.8 Absolute Lymphocytes 1.1 Absolute Monocytes 0.6 Absolute Eosinophils 0.1 Absolute Basophils 0.0 Sodium 132.3 L Potassium 3.7 Chloride 91 L Carbon Dioxide 36 H Anion Gap 5 BUN 21 H Creatinine 0.75 Est GFR ( Amer) > 60 Est GFR (Non-Af Amer) > 60 Glucose 195 H Calcium 9.4 Magnesium 1.9 Total Bilirubin 0.2 AST 69 H ALT 58 Alkaline Phosphatase 87 Total Protein 5.7 L Albumin 3.0 L Impressions: Chest X-Ray 05/15/18 00:00 IMPRESSION: NO ACUTE RADIOGRAPHIC FINDING IN THE CHEST. Qualifiers - * PATIENT BEING DISCHARGED WITH ANY OF THE FOLLOWING DIAGNOSIS: No
== END 2018-05-17 13:08 | disposition home or self-care (01) | DRG 638 ==
LOC: ER 16:17 → EH 20:51 → ICU 21:58 → 4N 05-16 12:15
PROVIDERS: ADMIT Internal Medicine; ATTEND Internal Medicine
DX: E10.10 Type 1 diabetes mellitus with ketoacidosis without coma (principal); N17.9 Acute kidney failure, unspecified; E87.1 Hypo-osmolality and hyponatremia; B19.20 Unspecified viral hepatitis C without hepatic coma; I11.0 Hypertensive heart disease with heart failure; I50.9 Heart failure, unspecified; E10.40 Type 1 diabetes mellitus with diabetic neuropathy, unspecified; R00.0 Tachycardia, unspecified; F17.210 Nicotine dependence, cigarettes, uncomplicated; E86.0 Dehydration; E87.5 Hyperkalemia; H53.8 Other visual disturbances; Z82.49 Family history of ischemic heart disease and other diseases of the circulatory system; Z83.3 Family history of diabetes mellitus; Z79.4 Long term (current) use of insulin; I69.398 Other sequelae of cerebral infarction; I25.10 Atherosclerotic heart disease of native coronary artery without angina pectoris; Z59.6 Low income; T38.3X6A Underdosing of insulin and oral hypoglycemic [antidiabetic] drugs, initial encounter; Z91.138 Patient's unintentional underdosing of medication regimen for other reason
CPT/HCPCS: 36415; 71046; 80048; 80053; 80061; 80074; 80307; 81001; 82803; 82962; 83036; 83690; 83735; 84100; 84443; 85025; 85027; 85610; 85730; 93005; 93010; 96361; 96374; 99291; J0360; J1644; J1815; J2765; J3480; J3490; J7030; J7120

== ENCOUNTER → 2018-06-13 | Outpatient (CLI) | payer MEDICAID, OTHER ==
--- NOTE | 2018-06-13 11:23 | RADIOLOGY REPORT (SQ) ---
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 Images reformatted using 3-D MIPS. LIMITATIONS: None. FINDINGS: SOURCE IMAGES: No unexpected findings on source images. No large masses. 3-D MIP: No aneurysm. No occlusions. No significant stenosis. There is no vascular malformation in the left occipital lobe. OTHER: Prior MRI from 03/30/[address] brain from 04/09/2018 were reviewed. On both prior studies, a l ate subacute infarct is present in the left medial occipital cortex and subcortical white matter. Th ere is brain parenchymal encephalomalacia and spotty contrast enhancement on the post gadolinium sequ ences from blood brain barrier breakdown from infarct. This represents the late subacute left occipi ulysses infarct on MRI 03/30/2018, no longer positive on the diffusion-weighted images but still exhibitin g contrast enhancement from infarct and blood brain barrier breakdown IMPRESSION: NORMAL MRA OF THE [place]. TECHNICAL DOCUMENTATION: JOB ID: [id number] [employer]- All Rights Reserved Reading location - IP/workstation name: [email or web address]
== END ==
LOC: RAD 09:49
DX: Q28.2 Arteriovenous malformation of cerebral vessels (principal)
CPT/HCPCS: 70544

== ENCOUNTER 2018-07-11 18:15 | Inpatient (IN) | payer MEDICAID, OTHER ==
[2018-07-11] MEDS ORDERED: NORMAL SALINE 1000 ML 1,000 ML IV ONE ×3 (18:34→19:29)
[2018-07-11 18:55] LABS: ABSOLUTE BASOPHILS # (AUTO) 0.1 10^3/uL (0.0-0.2); ABSOLUTE LYMPHOCYTES (AUTO) 0.5 10^3/uL (0.5-4.7); ABSOLUTE MONOCYTES (AUTO) 0.9 10^3/uL (0.1-1.4); ABSOLUTE NEUT (AUTO) 8.2 10^3/uL (1.7-8.2); BASOPHILS % (AUTO) 0.6 % (0-2); EOSINOPHILS % (AUTO) 0.1 % (0-6); HEMATOCRIT 44.2 % (37.9-51.0); HEMOGLOBIN 12.6 g/dL (13.5-17.0); LYMPHOCYTES % (AUTO) 5.3 % (13-45); MEAN CORPUSCULAR HEMOGLOBIN 32.9 pg (27.0-33.4); MEAN CORPUSCULAR HGB CONC 28.5 g/dL (32.0-36.0); MONOCYTES % (AUTO) 9.3 % (3-13); PLATELET COUNT 272 10^3/uL (150-450); RED BLOOD COUNT 3.83 10^6/uL (4.35-5.55); RED CELL DISTRIBUTION WIDTH 15.9 % (11.5-14.0); SEGMENTED NEUTROPHILS % (AUTO) 84.7 % (42-78); TOTAL CELLS COUNTED % (AUTO) 100 %; WHITE BLOOD COUNT 9.7 10^3/uL (4.0-10.5)
[2018-07-11 19:04] LABS: ALANINE AMINOTRANSFERASE 226 U/L (21-72); ALBUMIN 4.2 g/dL (3.5-5.0); ALKALINE PHOSPHATASE 260 U/L (38-126); ASPARTATE AMINO TRANSFERASE 97 U/L (17-59); BILIRUBIN,DIRECT 0.5 mg/dL (0.0-0.4); BILIRUBIN,TOTAL 0.5 mg/dL (0.2-1.3); BLOOD UREA NITROGEN 17 mg/dL (7-20); CALCIUM 8.8 mg/dL (8.4-10.2); CHLORIDE 94 mmol/L (98-107); TOTAL PROTEIN 6.3 g/dL (6.3-8.2)
--- NOTE | 2018-07-11 19:04 | RADIOLOGY REPORT (SQ) ---
EXAM DESCRIPTION: CHEST SINGLE VIEW COMPLETED DATE/TIME: 07/11/2018 6:52 pm REASON FOR STUDY: altered mental status COMPARISON: 05/15/2018 EXAM PARAMETERS: NUMBER OF VIEWS: One view. TECHNIQUE: Single frontal radiographic view of the chest acquired. RADIATION DOSE: NA LIMITATIONS: None. FINDINGS: LUNGS AND PLEURA: No opacities, masses or pneumothorax. No pleural effusion. MEDIASTINUM AND HILAR STRUCTURES: No masses. Contour normal. HEART AND VASCULAR STRUCTURES: Heart normal in size. Normal vasculature. BONES: No acute findings. HARDWARE: None in the chest. OTHER: No other significant finding. IMPRESSION: NO ACUTE RADIOGRAPHIC FINDING IN THE CHEST. TECHNICAL DOCUMENTATION: JOB ID: [id number] [employer]- All Rights Reserved Reading location - IP/workstation name: [email or web address]
[2018-07-11 19:17] LABS: APPEARANCE,URINE SLIGHTLY-CLOUDY; BILIRUBIN,URINE NEGATIVE (NEGATIVE); COLOR,URINE STRAW; GLUCOSE, URINE >=500 mg/dL (NEGATIVE); KETONES,URINE 80 mg/dL (NEGATIVE); LEUKOCYTE ESTERASE,URINE NEGATIVE (NEGATIVE); NITRITE,URINE NEGATIVE (NEGATIVE); PROTEIN,URINE 30 mg/dL (NEGATIVE); URINE SPECIFIC GRAVITY 1.017; UROBILINOGEN,URINE NEGATIVE mg/dL (<2.0)
[2018-07-11 19:18] LABS: ACETAMINOPHEN < 10 ug/mL (10-30); ALCOHOL < 10 mg/dL (NONE DETECTED); SALICYLATE < 1.0 mg/dL (2.0-20.0)
[2018-07-11 19:19] LABS: GLUCOSE 897 mg/dL (75-110); POTASSIUM 6.2 mmol/L (3.6-5.0)
[2018-07-11 19:20] LABS: CARBON DIOXIDE < 5 mmol/L (22-30)
[2018-07-11 19:24] LABS: VENOUS BLOOD BASE EXCESS -31.8 mmol/L; VENOUS BLOOD HCO3 2.3 mmol/L (20-32)
[2018-07-11 19:26] LABS: MEAN CORPUSCULAR VOLUME 115 fl (80-97)
--- NOTE | 2018-07-11 19:26 | EKG REPORT ---
SEVERITY:- ABNORMAL ECG - SINUS RHYTHM LEFT VENTRICULAR HYPERTROPHY ANTERIOR Q WAVES, POSSIBLY DUE TO LVH TALL T, CONSIDER METABOLIC/ISCHEMIC ABNRM BORDERLINE PROLONGED QT INTERVAL : Confirmed by: Brendan Cummings MD 11-Jul-2018 19:26:10
[2018-07-11] MEDS ORDERED: INSULIN REG, HUMAN 100 UNIT/ML 3 ML VIAL (PYX) IV ONE (19:28)
[2018-07-11 19:29] LABS: VENOUS BLOOD PCO2 16.1 mmHg (35-63); VENOUS BLOOD PH 6.77 (7.30-7.42)
[2018-07-11 19:31] LABS: ANISOCYTOSIS SLIGHT; PLATELET COMMENT ADEQUATE; TOXIC GRANULATION SLIGHT
--- NOTE | 2018-07-11 19:44 | ER Document Report ---
ED General - General Chief Complaint: High Blood Sugar Stated Complaint: POSSIBLE STROKE Time Seen by Provider: 07/11/18 18:33 Primary Care Provider: RY CHATTERJEE MD [Primary Care Provider] - Follow up as needed TRAVEL OUTSIDE OF THE [place] IN LAST 30 DAYS: No - HPI Notes: Patient is a 52-year-old male brought into the emergency department for evaluation of altered mental status. History is entirely obtained from the mother. Mother states he normally lives independently. She states he has "some problems" and someone checks on him daily. She states she saw him yesterday and he seemed to be fine. Today she was contacted by the neighbors, as he was moaning out incoherently nonstop. - Related Data Allergies/Adverse Reactions: No Known Allergies Allergy (Verified 06/08/17 20:19) Past Medical History - General Information source: Parent - Social History Smoking Status: Current Every Day Smoker Frequency of alcohol use: None Drug Abuse: None Lives with: Alone Family History: DM, Hypertension Patient has suicidal ideation: No Patient has homicidal ideation: No - Past Medical History Cardiac Medical History: Reports: Hx Congestive Heart Failure, Hx Hypertension Pulmonary Medical History: Denies: Hx COPD Endocrine Medical History: Reports: Hx Diabetes Mellitus Type 1 Renal/ Medical History: Reports: Hx Renal Insufficiency. Denies: Hx Perit you Dialysis GI Medical History: Denies: Hx Cirrhosis Musculoskeletal Medical History: Denies Hx Arthritis, Denies Hx Fibromyalgia Skin Medical History: Denies Hx Eczema, Denies Hx Psoriasis Psychiatric Medical History: Denies: Hx Depression Past Surgical History: Reports: Other - Denies any recent surgery Review of Systems - Review of Systems -: Yes ROS unobtainable due to patient's medical condition Physical Exam - Vital signs Vitals: Resp 26 H 07/11/18 18:21 - Notes Notes: Patient is a frail 52-year-old gentleman, appears his stated age, in moderate distress. He rolls around on the bed, intermittently moaning out. Head is normocephalic and atraumatic. Pupils are equal and round, sluggishly reactive to light. Oral mucosa is dry. Heart is regular rate and rhythm, lungs are clear to auscultation bilaterally. Abdomen is soft, diffusely tender with normoactive bowel sounds. Extremities without cyanosis or clubbing. Skin is warm and dry. Patient is awake, but will only open eyes to painful stimuli. Moans loudly. Will not follow commands. GCS 9. Moves all 4 extremities spontaneously, no gross facial asymmetry. Course - Re-evaluation Re-evalutation: 07/11/18 19:44 Patient presented to the emergency department for evaluation of altered mental status. He was found to be hypothermic. He was placed on a bear hugger. IV fluids were ordered given his dry mucous membranes. Fluids also given as pressure support as patient's blood pressures were in the 90s. It was reported to me that the patient's blood glucose was high. I do have a strong suspicion for DKA. Laboratory investigations did confirm this, with a glucose of 897 and a bicarb less than 5. He was started on an insulin drip at 6 units/h. IV fluids continued. Patient's venous pH is 6.77 with a PCO2 of 16.1. Will cont act medicine for admission. - Vital Signs Vital signs: Temp Pulse Resp BP Pulse Ox 23 H 95/47 L 100 07/11/18 20:00 07/11/18 20:00 07/11/18 20:00 - Laboratory Result Diagrams: 07/11/18 18:30 07/11/18 18:30 Laboratory results interpreted by me: 07/11/18 07/11/18 07/11/18 18:30 18:30 18:46 RBC 3.83 L Hgb 12.6 L MCV 115 H MCHC 28.5 L RDW 15.9 H Seg Neutrophils % 84.7 H Lymphocytes % 5.3 L VBG pH VBG pCO2 VBG HCO3 Potassium 6.2 H* Chloride 94 L Carbon Dioxide < 5 L* Creatinine 1.52 H Est GFR ( Amer) 59 L Est GFR (Non-Af Amer) 48 L Glucose 897 H* Direct Bilirubin 0.5 H AST 97 H ALT 226 H Alkaline Phosphatase 260 H Urine Protein 30 H Urine Glucose (UA) >=500 H Urine Ketones 80 H Urine Blood MODERATE H Salicylates < 1.0 L Acetaminophen < 10 L 07/11/18 19:00 RBC Hgb MCV MCHC RDW Seg Neutrophils % Lymphocytes % VBG pH 6.77 L* VBG pCO2 16.1 L* VBG HCO3 2.3 L Potassium Chloride Carbon Dioxide Creatinine Est GFR ( Amer) Est GFR (Non-Af Amer) Glucose Direct Bilirubin AST ALT Alkaline Phosphatase Urine Protein Urine Glucose (UA) Urine Ketones Urine Blood Salicylates Acetaminophen - Diagnostic Test Radiology reviewed: Reports reviewed Radiology results interpreted by me: 07/11/18 19:43 Chest X-Ray 07/11/18 18:35 IMPRESSION: NO ACUTE RADIOGRAPHIC FINDING IN THE CHEST. - EKG Interpretation by Me Additional EKG results interpreted by me: 07/11/18 19:43 Sinus mechanism with a rate of 89 bpm. Normal axis. Borderline prolonged QT interval. Peaked T waves across the precordium concerning for hyperkalemia. No significant change when compared to prior study of May 13, 2018. Critical Care Note - Critical Care Note Total time excluding time spent on procedures (mins): 40 Discharge - Discharge Clinical Impression: Abnormal liver function test, DKA (diabetic ketoacidoses), Hypothermia Condition: Stable Disposition: ADMITTED INPATIENT Admitting Provider: Efrem (Hospitalist) Unit Admitted: ICU Referrals: RY CHATTERJEE MD [Primary Care Provider] - Follow up as needed
[2018-07-11 20:07] LABS: URINE AMPHETAMINES SCREEN NEGATIVE; URINE BARBITURATES SCREEN NEGATIVE; URINE BENZODIAZEPINES SCREEN NEGATIVE; URINE COCAINE SCREEN UNCONFIRMED POSITIVE; URINE MARIJUANA (THC) SCREEN NEGATIVE; URINE METHADONE SCREEN NEGATIVE; URINE PHENCYCLIDINE SCREEN NEGATIVE
[2018-07-11] MEDS ORDERED: ONDANSETRON HCL INJ/PF 4 MG/2 ML SDV IV PRN (20:23)
[2018-07-11 20:25] LABS: PHOSPHORUS 10.2 mg/dL (2.5-4.5)
[2018-07-11] MEDS ORDERED: ACETAMINOPHEN 650 MG SUPP.RECT PR PRN (20:31)
[2018-07-11] MEDS ORDERED: GLUCAGON,HUMAN RECOMB 1 MG INJ IM PRN (20:32)
[2018-07-11] MEDS ORDERED: DEXTROSE 40% GEL 15 GM TUBE PO PRN ×2 (20:34)
[2018-07-11] MEDS ORDERED: DEXTROSE 50%-WATER 25 GM/50 ML DISP.SYRIN IV PRN ×2 (20:34)
[2018-07-11] MEDS: NORMAL SALINE 1000 ML 1,000 ML IV PRN (21:09)
[2018-07-11] MEDS: NORMAL SALINE 100 ML with INSULIN REGULAR, HUMAN 100 UNIT IV PRN ×2 (21:16)
[2018-07-11] MEDS ORDERED: DEXTROSE 5%-WATER 250 ML with NOREPINEPHRINE BITARTRATE 4 MG IV PRN ×2 (21:36)
[2018-07-11] MEDS ORDERED: LORAZEPAM INJ 2 MG/1 ML VIAL IV ONE ×2 (21:36→21:37)
[2018-07-11] MEDS: NICOTINE 21 MG/24 HR PATCH.TD24 TD PRN (21:43)
[2018-07-11] MEDS: METOCLOPRAMIDE HCL INJ/PF 10 MG/2 ML SDV IV SCH (22:17)
[2018-07-11] MEDS: PANTOPRAZOLE SODIUM 40 MG VIAL IV SCH (22:17)
[2018-07-11] MEDS: HEPARIN SOD (PORCINE) 5,000 UNIT/ML 1 ML SYRINGE SUBCUT SCH (22:17)
[2018-07-11] MEDS: DEXTROSE 5%-WATER 1000 ML 1,000 ML with SODIUM BICARBONATE 150 MEQ IV PRN ×2 (22:25)
[2018-07-11 22:46] LABS: AMYLASE 55 U/L (30-110); BLOOD UREA NITROGEN 18 mg/dL (7-20); CALCIUM 7.2 mg/dL (8.4-10.2); CHLORIDE 106 mmol/L (98-107); CREATINE KINASE 116 U/L (55-170); SODIUM 139.6 mmol/L (137-145)
[2018-07-11 22:58] LABS: CREATINE KINASE MB 3.35 ng/mL (<4.55)
[2018-07-11 23:00] LABS: TROPONIN I < 0.012 ng/mL
[2018-07-11 23:02] LABS: GLUCOSE 736 mg/dL (75-110)
[2018-07-11 23:04] LABS: CARBON DIOXIDE < 5 mmol/L (22-30)
[2018-07-11 23:06] LABS: POTASSIUM 4.3 mmol/L (3.6-5.0)
[2018-07-11] MEDS: DIAZEPAM INJ 10 MG/2 ML DISP.SYRIN IV PRN (23:46)
[2018-07-11 23:56] LABS: ARTERIAL BLOOD BASE EXCESS -23.1 mmol/L; ARTERIAL BLOOD H2CO3 0.52 mmol/L (1.05-1.35); ARTERIAL BLOOD O2 SATURATION 72.4 % (94-98); ARTERIAL BLOOD PO2 50.8 mmHg (80-100); ARTERIAL BLOOD TOTAL CO2 5.5 mmol/L (23-27)
[2018-07-12] LABS: ARTERIAL BLOOD FIO2 ROOM AIR; ARTERIAL BLOOD PCO2 17.3 mmHg (35-45); ARTERIAL BLOOD PH 7.08 (7.35-7.45)
[2018-07-12] MEDS: NORMAL SALINE 1000 ML 1,000 ML IV PRN ×5 (00:42→22:45)
[2018-07-12] MEDS ORDERED: OLANZAPINE INJ/PF 10 MG SDV IM ONE (00:50)
--- NOTE | 2018-07-12 00:57 | PDOC H&P ---
History of Present Illness Admission Date/PCP: 07/11/2018 20:11 RY CHATTERJEE MD Patient complains of: Acute delerium History of Present Illness: AMPARO PHAN is a 52 year old male who presented to the emergency room with acute delirium. Patient is delirious at the time of evaluation and unable to offer information relevant to his medical care. He was seen by neighbors outside of his home today continuously morning and trying to speak very incoherently. The neighbors contacted his mother who came to see him and caused him to come to the emergency room for evaluation. She had seen him the prior day and he had been at his normal baseline at that time. In the emergency room the patient was found to be delirious and was noted to have a blood sugar of 897 with a venous pH of 6.77 and a PCO2 of 16.1 with a bicarb less than 5. These findings are consistent with a profound metabolic acidosis and point to be very likely diabetic ketoacidosis as the primary problem. Patient was subsequently started on an insulin infusion and IV fluids and admitted to the intensive care unit for further evaluation treatment. Past Medical History Past Medical History: Past medical history, past surgical history, social history and family medical h istory is obtained from current and prior records as well as other available reliable sources due to the patient's current delirium. Cardiac Medical History: Reports: Congestive Heart Failure, Hypertension Pulmonary Medical History: Denies: Asthma, Chronic Obstructive Pulmonary Disease (COPD), Respiratory Failure EENT Medical History: Denies: Cataracts, Ears - Hearing aids Neurological Medical History: Denies: Hemorrhagic CVA, Ischemic CVA, Multiple Sclerosis, Seizures Endocrine Medical History: Reports: Diabetes Mellitus Type 2 Denies: Diabetes Mellitus Type 1, Hyperthyroidism, Hypothyroidism Renal/ Medical History: Denies: Chronic Kidney Disease, Nephrolithiasis Malignancy Medical History: Reports: None GI Medical History: Reports: Other - Elevated hepatic transaminases Denies: Cirrhosis, Crohn's Disease, Gastroesophageal Reflux Disease, Hepatitis, Peptic Ulcer Disease, Ulcerative Colitis Musculoskeltal Medical History: Denies: Arthritis, Fibromyalgia, Gout Skin Medical History: Denies: Eczema, Psoriasis Psychiatric Medical History: Reports: Alcohol Dependency, Substance Abuse, Tobacco Dependency Denies: Depression Traumatic Medical History: Reports: None Hematology: Denies: Anemia, Bleeding Tendencies Infectious Medical History: Reports: None Past Surgical History Past Surgical History: Past medical history, past surgical history, social history and family medical history is obtained from current and prior records as well as other available reliable sources due to the patient's current delirium. Past Surgical History: Reports: None Social History Information Source: Relative, [facility] Records Lives with: Alone Smoking Status: Current Every Day Smoker Frequency of Alcohol Use: None - History of heavy alcohol abuse/use in the past but no current history of abuse or use. Hx Recreational Drug Use: Yes Drugs: Cocaine Hx Prescription Drug Abuse: No Past Social History Note: Past medical history, past surgical history, social history and family medical history is obtained from current and prior records as well as other available reliable sources due to the patient's current delirium. - Advance Directive Resuscitation Status: Full Code Surrogate healthcare decision maker:: Mother Family History Family History: DM, Hypertension Family History: Past medical history, past surgical history, social history and family medical history is obtained from current and prior records as well as other available reliable sources due to the patient's current delirium. Parental Family History Reviewed: Yes Children Family History Reviewed: No Sibling(s) Family History Reviewed.: Yes Medication/Allergy Home Medications: Aspirin [Ecotrin] 81 mg PO DAILY PRN 05/13/18 Insulin Aspart Prot/Insuln Asp [Novolog Mix 70-30 Flexpen Syrn] 30 unit SQ TID 05/13/18 Multivitamin/Iron/Folic Acid [Centrum Adults Tablet] 1 tab PO DAILY 05/13/18 Lisinopril [Prinivil 10 mg Tablet] 20 mg PO DAILY #60 tablet 05/17/18 Allergies/Adverse Reactions: No Known Allergies Allergy (Verified 06/08/17 20:19) Review of Systems ROS unobtainable: Due to mental status - Acute delirium secondary to metabolic acidosis Physical Exam Vital Signs: Temp Pulse Resp BP Pulse Ox 23 H 95/47 L 100 07/11/18 20:00 07/11/18 20:00 07/11/18 20:00 Intake & Output 07/09/18 07/10/18 07/11/18 23:59 23:59 23:59 Intake Total 1000 Balance 1000 General appearance: PRESENT: disheveled, other - Delirious and combative. ABSENT: cooperative - Poorly cooperative due to delirium Head exam: PRESENT: atraumatic, normocephalic Eye exam: ABSENT: conjunctival injection, scleral icterus Ear exam: PRESENT: normal external ear exam. ABSENT: bleeding, drainage Mouth exam: PRESENT: dry mucosa, neck supple Neck exam: ABSENT: JVD, thyromegaly, tracheal deviation Respiratory exam: PRESENT: symmetrical, tachypnea, unlabored Cardiovascular exam: PRESENT: RRR. ABSENT: clicks, gallop, rubs Pulses: PRESENT: normal radial pulses, normal dorsalis pedis pul Vascular exam: PRESENT: normal capillary refill. ABSENT: pallor GI/Abdominal exam: PRESENT: normal bowel sounds, soft Rectal exam: PRESENT: deferred Extremities exam: ABSENT: joint swelling, pedal edema Musculoskeletal exam: ABSENT: deformity, dislocation Neurological exam: PRESENT: altered - Acute delirium, CN II-XII grossly intact Psychiatric exam: PRESENT: agitated - Mildly agitated, other - Combativeness and acute delirium precludes further evaluation Skin exam: PRESENT: dry, intact, warm. ABSENT: jaundice, rash, urticaria Results Laboratory Results: 07/11/18 18:30 07/11/18 18:30 07/11/18 07/11/18 07/11/18 18:30 18:30 18:30 WBC 9.7 RBC 3.83 L Hgb 12.6 L Hct 44.2 MCV 115 H MCH 32.9 MCHC 28.5 L RDW 15.9 H Plt Count 272 Seg Neutrophils % 84.7 H Lymphocytes % 5.3 L Monocytes % 9.3 Eosinophils % 0.1 Basophils % 0.6 Absolute Neutrophils 8.2 Absolute Lymphocytes 0.5 Absolute Monocytes 0.9 Absolute Eosinophils 0.0 Absolute Basophils 0.1 VBG pH Cancelled VBG pCO2 Cancelled VBG HCO3 Cancelled VBG Base Excess Cancelled Sodium 137.0 Potassium 6.2 H* Chloride 94 L Carbon Dioxide < 5 L* Anion Gap Not Reportable BUN 17 Creatinine 1.52 H Est GFR ( Amer) 59 L Est GFR (Non-Af Amer) 48 L Glucose 897 H* Calcium 8.8 Total Bilirubin 0.5 AST 97 H ALT 226 H Alkaline Phosphatase 260 H Total Protein 6.3 Albumin 4.2 Urine Color Urine Appearance Urine pH Ur Specific [place] Urine Protein Urine Glucose (UA) Urine Ketones Urine Blood Urine Nitrite Ur Leukocyte Esterase Urine WBC (Auto) Urine RBC (Auto) 07/11/18 07/11/18 18:46 19:00 WBC RBC Hgb Hct MCV MCH MCHC RDW Plt Count Seg Neutrophils % Lymphocytes % Monocytes % Eosinophils % Basophils % Absolute Neutrophils Absolute Lymphocytes Absolute Monocytes Absolute Eosinophils Absolute Basophils VBG pH 6.77 L* VBG pCO2 16.1 L* VBG HCO3 2.3 L VBG Base Excess -31.8 Sodium Potassium Chloride Carbon Dioxide Anion Gap BUN Creatinine Est GFR ( Amer) Est GFR (Non-Af Amer) Glucose Calcium Total Bilirubin AST ALT Alkaline Phosphatase Total Protein Albumin Urine Color STRAW Urine Appearance SLIGHTLY-CLOUDY Urine pH 5.0 Ur Specific [place] 1.017 Urine Protein 30 H Urine Glucose (UA) >=500 H Urine Ketones 80 H Urine Blood MODERATE H Urine Nitrite NEGATIVE Ur Leukocyte Esterase NEGATIVE Urine WBC (Auto) 3 Urine RBC (Auto) 3 Impressions: Chest X-Ray 07/11/18 18:35 IMPRESSION: NO ACUTE RADIOGRAPHIC FINDING IN THE CHEST. Assessment and Plan - Diagnosis (1) Diabetic ketoacidosis associated with type 2 diabetes mellitus Qualifiers: Diabetes mellitus complication detail: without coma Qualified Code(s): E11.10 - Type 2 diabetes mellitus with ketoacidosis without coma Is this a current diagnosis for this admission?: Yes Plan: Patient be placed in the ICU and treated with high volume IV fluids, a continuous insulin infusion per protocol, a continuous bicarbonate infusion and the ICU electrolyte protocol. Serial ABGs, metabolic profiles and magnesium levels will be obtained to evaluate treatment and follow the course of the patient's clinical process. (2) Acute hyperactive delirium due to another medical condition Is this a current diagnosis for this admission?: Yes Plan: Patient be placed in ICU and his underlying metabolic acidosis will be treated. He will receive appropriate sedation and restraint if required for his protection. Initial treatment will be with Zyprexa 10 mg IM followed by 5 mg IM every 6 hours as needed for control of the patient's severe combativeness and hyperactive delirium. (3) Hypothermia Qualifiers: Encounter type: initial encounter Qualified Code(s): T68.XXXA - Hypoth ermia, initial encounter Is this a current diagnosis for this admission?: Yes Plan: Patient will be treated in the ICU and will be placed on a bear hugger warming blanket. (4) Hyperkalemia Is this a current diagnosis for this admission?: Yes Plan: Patient will be placed in the ICU and will be on the ICU electrolyte protocol for control of his potassium abnormality. (5) Acute kidney failure Qualifiers: Acute renal failure type: unspecified Qualified Code(s): N17.9 - Acute kidney failure, unspecified Is this a current diagnosis for this admission?: Yes Plan: Patient be treated with IV fluids and correction of his underlying metabolic acidosis. His renal functions will be followed with regular serial evaluations of his metabolic profile. (6) Elevated liver enzymes Is this a current diagnosis for this admission?: Yes Plan: Patient's elevated liver enzymes will be followed with serial metabolic profile evaluations and appropriate further evaluation and/or intervention will be determined based upon whether or not his liver enzymes return to a normal level. (7) Hypotension Qualifiers: Hypotension type: unspecified hypotension type Qualified Code(s): I95.9 - Hypotension, unspecified Is this a current diagnosis for this admission?: Yes Plan: Patient be maintained on a Levophed infusion as needed for maintenance of adequate mean arterial blood pressure. He will be monitored closely in the ICU and use of vasopressors will be discontinued as soon as possible. - Time Time Spent with patient: 15-24 minutes Medications reviewed and adjusted accordingly: Yes - Inpatient Certification Based on my medical assessment, after consideration of the patient's comorbidities, presenting symptoms, or acuity I expect that the services needed warrant INPATIENT care.: Yes I certify that my determination is in accordance with my understanding of Medicare's requirements for reasonable and necessary INPATIENT services [42 CFR 412.3e].: Yes Medical Necessity: Significant Comorbidiites Make Outpatient Treatment Too Risky, Need Close Monitoring Due to Risk of Patient Decompensation, Need For IV Fluids, Need For Continuous Telemetry Monitoring, Need for Neurological Checks, Risk of Complication if Not Cared For in Hospital
[2018-07-12] MEDS: DIAZEPAM INJ 10 MG/2 ML DISP.SYRIN IV PRN ×8 (01:07→12:29)
[2018-07-12] MEDS: DEXTROSE 5%-WATER 1000 ML 1,000 ML with SODIUM BICARBONATE 150 MEQ IV PRN ×4 (01:14→03:20)
[2018-07-12 02:42] LABS: ARTERIAL BLOOD BASE EXCESS -14.9 mmol/L; ARTERIAL BLOOD FIO2 ROOM AIR; ARTERIAL BLOOD H2CO3 0.68 mmol/L (1.05-1.35); ARTERIAL BLOOD HCO3 10.2 mmol/L (20-24); ARTERIAL BLOOD O2 SATURATION 95.8 % (94-98); ARTERIAL BLOOD PCO2 22.6 mmHg (35-45); ARTERIAL BLOOD PH 7.27 (7.35-7.45); ARTERIAL BLOOD PO2 87.8 mmHg (80-100); ARTERIAL BLOOD TOTAL CO2 10.9 mmol/L (23-27)
[2018-07-12] MEDS ORDERED: INSULIN REG, HUMAN 100 UNIT/ML 3 ML VIAL (PYX) ONE (03:45)
[2018-07-12] MEDS: NORMAL SALINE 100 ML with INSULIN REGULAR, HUMAN 100 UNIT IV PRN ×4 (03:48→23:24)
[2018-07-12 04:41] LABS: BLOOD UREA NITROGEN 16 mg/dL (7-20); CREATINE KINASE 123 U/L (55-170)
[2018-07-12 04:44] LABS: HEMATOCRIT 28.5 % (37.9-51.0); MEAN CORPUSCULAR HEMOGLOBIN 32.3 pg (27.0-33.4); MEAN CORPUSCULAR HGB CONC 33.1 g/dL (32.0-36.0); PLATELET COUNT 164 10^3/uL (150-450); RED BLOOD COUNT 2.93 10^6/uL (4.35-5.55); RED CELL DISTRIBUTION WIDTH 14.5 % (11.5-14.0); WHITE BLOOD COUNT 7.6 10^3/uL (4.0-10.5)
[2018-07-12 04:48] LABS: CHLORIDE 105 mmol/L (98-107)
[2018-07-12 04:53] LABS: CREATINE KINASE MB 4.31 ng/mL (<4.55)
[2018-07-12 04:58] LABS: TROPONIN I < 0.012 ng/mL
[2018-07-12 04:59] LABS: HEMOGLOBIN 9.4 g/dL (13.5-17.0)
[2018-07-12 05:00] LABS: MEAN CORPUSCULAR VOLUME 97 fl (80-97)
[2018-07-12 05:01] LABS: ANION GAP 23 (5-19)
[2018-07-12 05:02] LABS: CALCIUM 7.1 mg/dL (8.4-10.2)
[2018-07-12 05:04] LABS: CARBON DIOXIDE 15 mmol/L (22-30); POTASSIUM 2.6 mmol/L (3.6-5.0)
[2018-07-12] MEDS: HEPARIN SOD (PORCINE) 5,000 UNIT/ML 1 ML SYRINGE SUBCUT SCH ×3 (05:23→22:13)
[2018-07-12] MEDS: POTASSIUM CHLORIDE 20 MEQ/50 ML RTU IV SCH ×6 (05:43→16:42)
[2018-07-12 06:26] LABS: ABSOLUTE LYMPHOCYTES# (MANUAL) 0.4 10^3/uL (0.5-4.7); ABSOLUTE MONOCYTES # (MANUAL) 0.4 10^3/uL (0.1-1.4); ABSOLUTE NEUTROPHILS# (MANUAL) 6.8 10^3/uL (1.7-8.2); BAND NEUTROPHILS % (MANUAL) 6 % (3-5); BASOPHILS % (MANUAL) 0 % (0-2); EOSINOPHILS % (MANUAL) 0 % (0-6); LYMPHOCYTES % (MANUAL) 5 % (13-45); MONOCYTES % (MANUAL) 5 % (3-13); SEGMENTED NEUTROPHILS % (MAN) 84 % (42-78); TOTAL CELLS COUNTED 100
[2018-07-12 06:27] LABS: PLATELET COMMENT ADEQUATE; STOMATOCYTES SLIGHT
[2018-07-12 06:32] LABS: GLUCOSE 436 mg/dL (75-110)
[2018-07-12] MEDS ORDERED: DEXTROSE 5%-WATER 1000 ML 1,000 ML with SODIUM BICARBONATE 150 MEQ IV PRN ×2 (08:45)
[2018-07-12] MEDS: METOCLOPRAMIDE HCL INJ/PF 10 MG/2 ML SDV IV SCH ×4 (09:11→22:14)
[2018-07-12] MEDS: PANTOPRAZOLE SODIUM 40 MG VIAL IV SCH ×2 (09:11→22:14)
[2018-07-12 10:36] LABS: ALANINE AMINOTRANSFERASE 151 U/L (21-72); ALBUMIN 2.5 g/dL (3.5-5.0); ALKALINE PHOSPHATASE 129 U/L (38-126); ANION GAP 10 (5-19); ASPARTATE AMINO TRANSFERASE 66 U/L (17-59); BILIRUBIN,DIRECT 0.2 mg/dL (0.0-0.4); BILIRUBIN,TOTAL 0.2 mg/dL (0.2-1.3); BLOOD UREA NITROGEN 14 mg/dL (7-20); CHLORIDE 101 mmol/L (98-107); CREATINE KINASE 118 U/L (55-170); GLUCOSE 152 mg/dL (75-110); SODIUM 145.3 mmol/L (137-145); TOTAL PROTEIN 4.6 g/dL (6.3-8.2)
[2018-07-12 10:43] LABS: CREATINE KINASE MB 4.34 ng/mL (<4.55); TROPONIN I 0.021 ng/mL
[2018-07-12 10:49] LABS: CALCIUM 6.8 mg/dL (8.4-10.2); POTASSIUM 2.5 mmol/L (3.6-5.0)
[2018-07-12 11:27] LABS: CARBON DIOXIDE 34 mmol/L (22-30)
[2018-07-12] MEDS ORDERED: DEXAMETHASONE SOD PHOSPHATE INJ 4 MG/1 ML VIAL ONE (12:59)
[2018-07-12] MEDS ORDERED: CEFTRIAXONE 1 GM/D5W RTU 1 GM/50 ML RTUPB IV SCH (13:00)
[2018-07-12] MEDS ORDERED: POTASSIUM CHLORIDE 10 MEQ CAPSULE.ER PO ONE (13:00)
[2018-07-12] MEDS ORDERED: DIPHENHYDRAMINE HCL 50 MG/ML VIAL ONE (13:02)
[2018-07-12] MEDS ORDERED: NORMAL SALINE 250 ML IV PRN (13:17)
[2018-07-12] MEDS ORDERED: RACEPINEPHRINE HCL 2.25% NEB 0.5 ML AMPUL NEB ONE (13:21)
[2018-07-12] MEDS ORDERED: DIPHENHYDRAMINE HCL 50 MG/ML VIAL IV ONE (14:00)
[2018-07-12] MEDS ORDERED: DEXAMETHASONE SOD PHOS INJ 10 MG/1 ML VIAL IV ONE (14:00)
--- NOTE | 2018-07-12 14:04 | RADIOLOGY REPORT (SQ) ---
EXAM DESCRIPTION: CT SOFT TISSUE NECK WITH COMPLETED DATE/TIME: 07/12/2018 1:44 pm REASON FOR STUDY: r/o tonsillar abscess COMPARISON: None. TECHNIQUE: Post IV contrasted scanning from skull base through lung apices with review of bone, soft tissue and lung windows. Reconstructed coronal and sagittal MPR images reviewed. All images stored on PACS. All CT scanners at this facility use dose modulation, iterative reconstruction, and/or weight based d osing when appropriate to reduce radiation dose to as low as reasonably achievable (ALARA). [facility]: Dose Right [facility]: CareDose [facility]: Dose Right [facility]: Teradose 4D [facility]: CEDU CONTRAST TYPE AND DOSE: contrast/concentration: Isovue 350.00 mg/ml; Total Contrast Delivered: 75.0 ml; Total Saline Delivered: 55.0 ml RENAL FUNCTION: Not available RADIATION DOSE: . LIMITATIONS: Patient movement. FINDINGS: SKULL BASE: Intact. MAJOR SALIVARY GLANDS: No solid or cystic masses. No inflammatory changes. LYMPHADENOPATHY: No adenopathy. MUCOSAL MASSES OR ASYMMETRY: No mucosal masses or asymmetry. LARYNX/CORDS: No abnormal findings. VASCULAR STRUCTURES: The major vessels are patent. LUNG APICES: Clear. BONES: Intact. THYROID: Normal size. No masses. PARANASAL SINUSES: Mucosal thickening left sphenoid sinus. OTHER: No other significant finding. IMPRESSION: No evidence of abscess. TECHNICAL DOCUMENTATION: JOB ID: [id number] Quality ID # [id number]: Final reports with documentation of one or more dose reduction techniques (e.g., Au tomated exposure control, adjustment of the mA and/or kV according to patient size, use of iterative reconstruction technique) 2010 [employer]- All Rights Reserved Reading location - IP/workstation name: [email or web address]
[2018-07-12 14:45] LABS: PATH REVIEW PATHOLOGIST REVIEWED
--- NOTE | 2018-07-12 15:00 | PDOC PROGRESS REPORT ---
Subjective Progress Note for:: 07/12/18 Subjective:: This is a 52-year-old male with a history of uncontrolled diabetes from noncompliance who was admitted for acute encephalopathy and severe DKA. Uterus was also noted to be positive for cocaine. He was started on IV fluids, bicarbonate and insulin drip. Upon encounter this morning, he remains confused. RN did notice that he had tonsillar swelling. He does have enlarged tonsils but no exudates were noted. Will pursue the neck CT to rule out a peritonsillar abscess. Will add Rocephin empirically. Reason For Visit: ACUTE SEVERE DIABETIC KETOACIDOSIS, HYPOTHERMIA, Physical Exam Vital Signs: Temp Pulse Resp BP Pulse Ox 97.3 F 96 18 135/80 H 98 07/12/18 08:00 07/12/18 10:00 07/12/18 10:00 07/12/18 10:00 07/12/18 10:00 Intake & Output 07/11/18 07/12/18 07/13/18 06:59 06:59 06:59 Intake Total 5117 1000 Output Total 2800 600 Balance 2317 400 Weight 112 lb 10.499 oz General appearance: PRESENT: no acute distress, well-developed, well-nourished Head exam: PRESENT: atraumatic, normocephalic Eye exam: PRESENT: conjunctiva pink, EOMI, PERRLA. ABSENT: scleral icterus Ear exam: PRESENT: normal external ear exam Mouth exam: PRESENT: moist, tongue midline Throat exam: PRESENT: tonsillogmegaly Neck exam: ABSENT: carotid bruit, JVD, lymphadenopathy, thyromegaly Respiratory exam: PRESENT: clear to auscultation baldemar. ABSENT: rales, rhonchi, wheezes Cardiovascular exam: PRESENT: RRR. ABSENT: diastolic murmur, rubs, systolic murmur Pulses: PRESENT: normal dorsalis pedis pul GI/Abdominal exam: PRESENT: normal bowel sounds, soft. ABSENT: distended, guarding, mass, organolmegaly, rebound, tenderness Rectal exam: PRESENT: deferred - [id number] Neurological exam: PRESENT: alert, awake. ABSENT: oriented to person, oriented to place Results Laboratory Results: 07/12/18 04:06 07/12/18 09:50 07/11/18 07/11/18 07/11/18 18:30 18:30 18:30 WBC 9.7 RBC 3.83 L Hgb 12.6 L Hct 44.2 MCV 115 H MCH 32.9 MCHC 28.5 L RDW 15.9 H Plt Count 272 Seg Neutrophils % 84.7 H Lymphocytes % 5.3 L Monocytes % 9.3 Eosinophils % 0.1 Basophils % 0.6 Absolute Neutrophils 8.2 Absolute Lymphocytes 0.5 Absolute Monocytes 0.9 Absolute Eosinophils 0.0 Absolute Basophils 0.1 Carbonic Acid HCO3/H2CO3 Ratio ABG pH ABG pCO2 ABG pO2 ABG HCO3 ABG O2 Saturation ABG Base Excess VBG pH Cancelled VBG pCO2 Cancelled VBG HCO3 Cancelled VBG Base Excess Cancelled FiO2 Sodium 137.0 Potassium 6.2 H* Chloride 94 L Carbon Dioxide < 5 L* Anion Gap Not Reportable BUN 17 Creatinine 1.52 H Est GFR ( Amer) 59 L Est GFR (Non-Af Amer) 48 L Glucose 897 H* Lactic Acid Calcium 8.8 Phosphorus Magnesium Total Bilirubin 0.5 AST 97 H ALT 226 H Alkaline Phosphatase 260 H Ammonia Total Protein 6.3 Albumin 4.2 Amylase Lipase Urine Color Urine Appearance Urine pH Ur Specific [place] Urine Protein Urine Glucose (UA) Urine Ketones Urine Blood Urine Nitrite Ur Leukocyte Esterase Urine WBC (Auto) Urine RBC (Auto) 07/11/18 07/11/18 07/11/18 18:30 18:46 19:00 WBC RBC Hgb Hct MCV MCH MCHC RDW Plt Count Seg Neutrophils % Lymphocytes % Monocytes % Eosinophils % Basophils % Absolute Neutrophils Absolute Lymphocytes Absolute Monocytes Absolute Eosinophils Absolute Basophils Carbonic Acid HCO3/H2CO3 Ratio ABG pH ABG pCO2 ABG pO2 ABG HCO3 ABG O2 Saturation ABG Base Excess VBG pH 6.77 L* VBG pCO2 16.1 L* VBG HCO3 2.3 L VBG Base Excess -31.8 FiO2 Sodium Potassium Chloride Carbon Dioxide Anion Gap BUN Creatinine Est GFR ( Amer) Est GFR (Non-Af Amer) Glucose Lactic Acid Calcium Phosphorus 10.2 H Magnesium 2.7 H Total Bilirubin AST ALT Alkaline Phosphatase Ammonia Total Protein Albumin Amylase Lipase Urine Color STRAW Urine Appearance SLIGHTLY-CLOUDY Urine pH 5.0 Ur Specific [place] 1.017 Urine Protein 30 H Urine Glucose (UA) >=500 H Urine Ketones 80 H Urine Blood MODERATE H Urine Nitrite NEGATIVE Ur Leukocyte Esterase NEGATIVE Urine WBC (Auto) 3 Urine RBC (Auto) 3 07/11/18 07/11/18 07/11/18 21:07 21:07 21:07 WBC RBC Hgb Hct MCV MCH MCHC RDW Plt Count Seg Neutrophils % Lymphocytes % Monocytes % Eosinophils % Basophils % Absolute Neutrophils Absolute Lymphocytes Absolute Monocytes Absolute Eosinophils Absolute Basophils Carbonic Acid HCO3/H2CO3 Ratio ABG pH ABG pCO2 ABG pO2 ABG HCO3 ABG O2 Saturation ABG Base Excess VBG pH VBG pCO2 VBG HCO3 VBG Base Excess FiO2 Sodium Cancelled Potassium Cancelled Chloride Cancelled Carbon Dioxide Cancelled Anion Gap Cancelled BUN Cancelled Creatinine Cancelled Est GFR ( Amer) Cancelled Est GFR (Non-Af Amer) Cancelled Glucose Cancelled Lactic Acid Calcium Cancelled Phosphorus Magnesium Total Bilirubin AST ALT Alkaline Phosphatase Ammonia Cancelled Total Protein Albumin Amylase Cancelled Lipase Cancelled Urine Color Urine Appearance Urine pH Ur Specific [place] Urine Protein Urine Glucose (UA) Urine Ketones Urine Blood Urine Nitrite Ur Leukocyte Esterase Urine WBC (Auto) Urine RBC (Auto) 07/11/18 07/11/18 07/11/18 21:07 22:11 22:11 WBC RBC Hgb Hct MCV MCH MCHC RDW Plt Count Seg Neutrophils % Lymphocytes % Monocytes % Eosinophils % Basophils % Absolute Neutrophils Absolute Lymphocytes Absolute Monocytes Absolute Eosinophils Absolute Basophils Carbonic Acid HCO3/H2CO3 Ratio ABG pH ABG pCO2 ABG pO2 ABG HCO3 ABG O2 Saturation ABG Base Excess VBG pH VBG pCO2 VBG HCO3 VBG Base Excess FiO2 Sodium 139.6 Potassium 4.3 D Chloride 106 Carbon Dioxide < 5 L* Anion Gap Not Reportable BUN 18 Creatinine 1.67 H Est GFR ( Amer) 53 L Est GFR (Non-Af Amer) 43 L Glucose 736 H* Lactic Acid 4.4 H Calcium 7.2 L Phosphorus Magnesium Total Bilirubin AST ALT Alkaline Phosphatase Ammonia 47.7 H Total Protein Albumin Amylase 55 Lipase 95.0 Urine Color Urine Appearance Urine pH Ur Specific [place] Urine Protein Urine Glucose (UA) Urine Ketones Urine Blood Urine Nitrite Ur Leukocyte Esterase Urine WBC (Auto) Urine RBC (Auto) 07/11/18 07/12/18 07/12/18 23:45 01:03 01:03 WBC RBC Hgb Hct MCV MCH MCHC RDW Plt Count Seg Neutrophils % Lymphocytes % Monocytes % Eosinophils % Basophils % Absolute Neutrophils Absolute Lymphocytes Absolute Monocytes Absolute Eosinophils Absolute Basophils Carbonic Acid 0.52 L HCO3/H2CO3 Ratio 9:1 ABG pH 7.08 L* ABG pCO2 17.3 L* ABG pO2 50.8 L ABG HCO3 5.0 L ABG O2 Saturation 72.4 L ABG Base Excess -23.1 VBG pH VBG pCO2 VBG HCO3 VBG Base Excess FiO2 ROOM AIR Sodium Potassium Chloride Carbon Dioxide Anion Gap BUN Creatinine Est GFR ( Amer) Est GFR (Non-Af Amer) Glucose 597 H* Lactic Acid 7.3 H Calcium Phosphorus Magnesium Total Bilirubin AST ALT Alkaline Phosphatase Ammonia Total Protein Albumin Amylase Lipase Urine Color Urine Appearance Urine pH Ur Specific [place] Urine Protein Urine Glucose (UA) Urine Ketones Urine Blood Urine Nitrite Ur Leukocyte Esterase Urine WBC (Auto) Urine RBC (Auto) 07/12/18 07/12/18 07/12/18 02:00 02:16 03:07 WBC RBC Hgb Hct MCV MCH MCHC RDW Plt Count Seg Neutrophils % Lymphocytes % Monocytes % Eosinophils % Basophils % Absolute Neutrophils Absolute Lymphocytes Absolute Monocytes Absolute Eosinophils Absolute Basophils Carbonic Acid 0.68 L HCO3/H2CO3 Ratio 15:1 ABG pH 7.27 L ABG pCO2 22.6 L ABG pO2 87.8 ABG HCO3 10.2 L ABG O2 Saturation 95.8 ABG Base Excess -14.9 VBG pH VBG pCO2 VBG HCO3 VBG Base Excess FiO2 ROOM AIR Sodium Potassium Chloride Carbon Dioxide Anion Gap BUN Creatinine Est GFR ( Amer) Est GFR (Non-Af Amer) Glucose 562 H* 505 H* Lactic Acid Calcium Phosphorus Magnesium Total Bilirubin AST ALT Alkaline Phosphatase Ammonia Total Protein Albumin Amylase Lipase Urine Color Urine Appearance Urine pH Ur Specific [place] Urine Protein Urine Glucose (UA) Urine Ketones Urine Blood Urine Nitrite Ur Leukocyte Esterase Urine WBC (Auto) Urine RBC (Auto) 07/12/18 07/12/18 07/12/18 04:06 04:06 04:06 WBC RBC Hgb Hct MCV MCH MCHC RDW Plt Count Seg Neutrophils % Lymphocytes % Monocytes % Eosinophils % Basophils % Absolute Neutrophils Absolute Lymphocytes Absolute Monocytes Absolute Eosinophils Absolute Basophils Carbonic Acid HCO3/H2CO3 Ratio ABG pH ABG pCO2 ABG pO2 ABG HCO3 ABG O2 Saturation ABG Base Excess VBG pH VBG pCO2 VBG HCO3 VBG Base Excess FiO2 Sodium 143.0 Potassium 2.6 L* D Chloride 105 Carbon Dioxide 15 L D Anion Gap 23 H BUN 16 Creatinine 1.33 H Est GFR ( Amer) > 60 Est GFR (Non-Af Amer) 56 L Glucose 436 H* Lactic Acid 11.4 H Calcium 7.1 L Phosphorus Magnesium 1.8 Total Bilirubin AST ALT Alkaline Phosphatase Ammonia Total Protein Albumin Amylase Lipase Urine Color Urine Appearance Urine pH Ur Specific [place] Urine Protein Urine Glucose (UA) Urine Ketones Urine Blood Urine Nitrite Ur Leukocyte Esterase Urine WBC (Auto) Urine RBC (Auto) 07/12/18 07/12/18 07/12/18 04:06 05:07 05:07 WBC 7.6 RBC 2.93 L Hgb 9.4 L D Hct 28.5 L MCV 97 D MCH 32.3 MCHC 33.1 RDW 14.5 H Plt Count 164 Seg Neutrophils % Not Reportable Lymphocytes % Not Reportable Monocytes % Not Reportable Eosinophils % Not Reportable Basophils % Not Reportable Absolute Neutrophils Not Reportable Absolute Lymphocytes Not Reportable Absolute Monocytes Not Reportable Absolute Eosinophils Not Reportable Absolute Basophils Not Reportable Carbonic Acid HCO3/H2CO3 Ratio ABG pH ABG pCO2 ABG pO2 ABG HCO3 ABG O2 Saturation ABG Base Excess VBG pH VBG pCO2 VBG HCO3 VBG Base Excess FiO2 Sodium Potassium Chloride Carbon Dioxide Anion Gap BUN Creatinine Est GFR ( Amer) Est GFR (Non-Af Amer) Glucose 379 H Lactic Acid Calcium Phosphorus Magnesium Total Bilirubin AST ALT Alkaline Phosphatase Ammonia Total Protein Albumin 2.2 L Amylase Lipase Urine Color Urine Appearance Urine pH Ur Specific [place] Urine Protein Urine Glucose (UA) Urine Ketones Urine Blood Urine Nitrite Ur Leukocyte Esterase Urine WBC (Auto) Urine RBC (Auto) 07/12/18 09:50 WBC RBC Hgb Hct MCV MCH MCHC RDW Plt Count Seg Neutrophils % Lymphocytes % Monocytes % Eosinophils % Basophils % Absolute Neutrophils Absolute Lymphocytes Absolute Monocytes Absolute Eosinophils Absolute Basophils Carbonic Acid HCO3/H2CO3 Ratio ABG pH ABG pCO2 ABG pO2 ABG HCO3 ABG O2 Saturation ABG Base Excess VBG pH VBG pCO2 VBG HCO3 VBG Base Excess FiO2 Sodium 145.3 H Potassium 2.5 L* Chloride 101 Carbon Dioxide 34 H D Anion Gap 10 BUN 14 Creatinine 1.09 Est GFR ( Amer) > 60 Est GFR (Non-Af Amer) > 60 Glucose 152 H Lactic Acid Calcium 6.8 L* Phosphorus Magnesium Total Bilirubin 0.2 AST 66 H ALT 151 H Alkaline Phosphatase 129 H Ammonia Total Protein 4.6 L Albumin 2.5 L Amylase Lipase Urine Color Urine Appearance Urine pH Ur Specific [place] Urine Protein Urine Glucose (UA) Urine Ketones Urine Blood Urine Nitrite Ur Leukocyte Esterase Urine WBC (Auto) Urine RBC (Auto) 07/11/18 07/11/18 07/11/18 21:07 22:11 22:11 Creatine Kinase Cancelled 116 CK-MB (CK-2) 3.35 Troponin I < 0.012 07/12/18 07/12/18 07/12/18 04:06 04:06 09:50 Creatine Kinase 123 118 CK-MB (CK-2) 4.31 Troponin I < 0.012 07/12/18 09:50 Creatine Kinase CK-MB (CK-2) 4.34 Troponin I 0.021 Impressions: Chest X-Ray 07/11/18 18:35 IMPRESSION: NO ACUTE RADIOGRAPHIC FINDING IN THE CHEST. Assessment and Plan - Diagnosis (1) Acute encephalopathy Is this a current diagnosis for this admission?: Yes Plan: Possibly secondary to severe DKA and cocaine use. No nuchal rigidity on exam. No fever or leukocytosis. (2) DKA (diabetic ketoacidoses) Qualifiers: Diabetes mellitus type: type 1 Diabetes mellitus complication detail: without coma Qualified Code(s): E10.10 - Type 1 diabetes mellitus with ketoacidosis without coma Is this a current diagnosis for this admission?: Yes Plan: Potassium low at 2.5. Will replace potassium first. Hold insulin until potassium is repleted. Continue IV fluids. (3) Acute kidney failure Qualifiers: Acute renal failure type: unspecified Qualified Code(s): N17.9 - Acute kidney failure, unspecified Is this a current diagnosis for this admission?: Yes Plan: Resolved with IV fluids. - Time Time Spent with patient: 25-34 minutes
[2018-07-12] MEDS: CEFTRIAXONE SODIUM 1,000 MG in DEXTROSE 5%-WATER 50 ML IV SCH (17:22)
[2018-07-12] MEDS: DEXAMETHASONE SOD PHOSPHATE INJ 4 MG/1 ML VIAL IV SCH (17:24)
[2018-07-12 18:33] LABS: ANION GAP 5 (5-19); BLOOD UREA NITROGEN 13 mg/dL (7-20); CARBON DIOXIDE 34 mmol/L (22-30); CHLORIDE 104 mmol/L (98-107); GLUCOSE 231 mg/dL (75-110)
--- NOTE | 2018-07-12 18:54 | RADIOLOGY REPORT (SQ) ---
EXAM DESCRIPTION: CHEST SINGLE VIEW COMPLETED DATE/TIME: 07/12/2018 6:43 pm REASON FOR STUDY: rales,assess for congestion COMPARISON: 07/11/2018 EXAM PARAMETERS: NUMBER OF VIEWS: One view. TECHNIQUE: Single frontal radiographic view of the chest acquired. RADIATION DOSE: NA LIMITATIONS: None. FINDINGS: There is extensive new bilateral interstitial and heterogeneous opacity and new small bila teral pleural effusions. IMPRESSION: There is extensive new bilateral interstitial and heterogeneous opacity and new small bi lateral pleural effusions. Given rapid onset compared to prior date radiograph, findings likely refl ect pulmonary edema. TECHNICAL DOCUMENTATION: JOB ID: [id number] [email or web address]- All Rights Reserved Reading location - IP/workstation name: [email or web address]
[2018-07-12 18:58] LABS: CALCIUM 6.4 mg/dL (8.4-10.2); POTASSIUM 3.7 mmol/L (3.6-5.0)
[2018-07-12] MEDS: FUROSEMIDE INJ/PF 40 MG/4 ML SDV IV SCH ×2 (20:24→22:15)
[2018-07-12] MEDS: POTASSI CL 20 MEQ/50 ML RIDER 20 MEQ/50 ML RTUPB IV SCH ×2 (20:25→22:15)
[2018-07-12] MEDS: INSULIN GLARGINE,HUM.REC.ANLOG 1,000 UNIT/10 ML VIAL SUBCUT SCH (22:14)
[2018-07-13 00:45] LABS: ANION GAP 18 (5-19); BLOOD UREA NITROGEN 17 mg/dL (7-20); CHLORIDE 107 mmol/L (98-107); GLUCOSE 379 mg/dL (75-110); POTASSIUM 3.8 mmol/L (3.6-5.0); SODIUM 146.8 mmol/L (137-145)
[2018-07-13] MEDS: DEXAMETHASONE SOD PHOSPHATE INJ 4 MG/1 ML VIAL IV SCH ×4 (00:48→17:41)
[2018-07-13 00:59] LABS: CARBON DIOXIDE 22 mmol/L (22-30)
[2018-07-13 01:00] LABS: CALCIUM 6.4 mg/dL (8.4-10.2)
[2018-07-13] MEDS: HALOPERIDOL LACTATE INJ 5 MG/1 ML VIAL IV PRN ×4 (02:53→19:43)
[2018-07-13 03:29] LABS: HEMOGLOBIN 10.4 g/dL (13.5-17.0); MEAN CORPUSCULAR HEMOGLOBIN 33.1 pg (27.0-33.4); MEAN CORPUSCULAR HGB CONC 34.7 g/dL (32.0-36.0); MEAN CORPUSCULAR VOLUME 95 fl (80-97); PLATELET COUNT 163 10^3/uL (150-450); RED BLOOD COUNT 3.15 10^6/uL (4.35-5.55); RED CELL DISTRIBUTION WIDTH 14.5 % (11.5-14.0); WHITE BLOOD COUNT 7.1 10^3/uL (4.0-10.5)
[2018-07-13 03:34] LABS: ALANINE AMINOTRANSFERASE 110 U/L (21-72); ALBUMIN 2.6 g/dL (3.5-5.0); ALKALINE PHOSPHATASE 129 U/L (38-126); BILIRUBIN,DIRECT 0.3 mg/dL (0.0-0.4); BILIRUBIN,TOTAL 0.3 mg/dL (0.2-1.3); BLOOD UREA NITROGEN 16 mg/dL (7-20); GLUCOSE 229 mg/dL (75-110); POTASSIUM 3.7 mmol/L (3.6-5.0); TOTAL PROTEIN 4.9 g/dL (6.3-8.2)
[2018-07-13 03:39] LABS: CARBON DIOXIDE 22 mmol/L (22-30); CHLORIDE 106 mmol/L (98-107); SODIUM 148.9 mmol/L (137-145)
[2018-07-13 03:41] LABS: ASPARTATE AMINO TRANSFERASE 65 U/L (17-59)
[2018-07-13 03:46] LABS: CALCIUM 6.8 mg/dL (8.4-10.2)
[2018-07-13 03:48] LABS: ANION GAP 21 (5-19)
[2018-07-13 04:09] LABS: ABSOLUTE LYMPHOCYTES# (MANUAL) 0.2 10^3/uL (0.5-4.7); ABSOLUTE MONOCYTES # (MANUAL) 0.1 10^3/uL (0.1-1.4); ABSOLUTE NEUTROPHILS# (MANUAL) 6.7 10^3/uL (1.7-8.2); BAND NEUTROPHILS % (MANUAL) 5 % (3-5); BASOPHILS % (MANUAL) 0 % (0-2); EOSINOPHILS % (MANUAL) 0 % (0-6); LYMPHOCYTES % (MANUAL) 3 % (13-45); MONOCYTES % (MANUAL) 2 % (3-13); SEGMENTED NEUTROPHILS % (MAN) 90 % (42-78); TOTAL CELLS COUNTED 100
[2018-07-13 04:11] LABS: PLATELET COMMENT ADEQUATE; TARGET CELLS 1+
[2018-07-13 04:34] LABS: ARTERIAL BLOOD BASE EXCESS 3.1 mmol/L; ARTERIAL BLOOD O2 SATURATION 97.7 % (94-98); ARTERIAL BLOOD PCO2 33.2 mmHg (35-45); ARTERIAL BLOOD PH 7.51 (7.35-7.45); ARTERIAL BLOOD PO2 92.4 mmHg (80-100)
[2018-07-13 04:37] LABS: ARTERIAL BLOOD FIO2 30%
[2018-07-13] MEDS: HEPARIN SOD (PORCINE) 5,000 UNIT/ML 1 ML SYRINGE SUBCUT SCH ×3 (05:44→21:56)
[2018-07-13] MEDS ORDERED: FENTANYL CITRATE INJ/PF 100 MCG/2 ML AMPUL IV ONE (06:45)
[2018-07-13 07:23] LABS: CREATINE KINASE MB 2.23 ng/mL (<4.55)
[2018-07-13 07:26] LABS: TROPONIN I < 0.012 ng/mL
--- NOTE | 2018-07-13 07:53 | RADIOLOGY REPORT (SQ) ---
EXAM DESCRIPTION: XR ABDOMEN 2 VIEWS SUPINE ERECT COMPLETED DATE/TME: 07/13/2018 06:47 CLINICAL HISTORY: 52 years Male, Increased lactate, abdominal pain COMPARISON: None. NUMBER OF VIEWS/TECHNIQUE: 1 FINDINGS: Intestinal gas pattern is within normal limits. Paucity of bowel gas. No suspicious calcification. Grossly intact skeletal structures. Moderate mixed airspace and interstitial opacity of the bilateral lower lungs. Meyer catheter. IMPRESSION: 1. Stable chest findings partially imaged. 2. No acute abdominal findings.
[2018-07-13] MEDS ORDERED: VANCOMYCIN HCL 0 MG in DEXTROSE 5%-WATER 250 ML IV NR (08:45)
--- NOTE | 2018-07-13 09:17 | RADIOLOGY REPORT (SQ) ---
EXAM DESCRIPTION: CHEST SINGLE VIEW COMPLETED DATE/TIME: 07/13/2018 9:04 am REASON FOR STUDY: reassess congestion COMPARISON: 07/12/2018 EXAM PARAMETERS: NUMBER OF VIEWS: One view. TECHNIQUE: Single frontal radiographic view of the chest acquired. RADIATION DOSE: NA LIMITATIONS: None. FINDINGS: Stable AP examination with extensive bilateral interstitial and heterogeneous opacity and small pleural effusions. No new airspace opacity. Cardiomegaly. IMPRESSION: Stable AP examination with extensive bilateral interstitial and heterogeneous opacity an d small pleural effusions. No new airspace opacity. Cardiomegaly. TECHNICAL DOCUMENTATION: JOB ID: [id number] [email or web address]- All Rights Reserved Reading location - IP/workstation name: [email or web address]
[2018-07-13] MEDS: METOCLOPRAMIDE HCL INJ/PF 10 MG/2 ML SDV IV SCH ×4 (10:11→21:57)
[2018-07-13] MEDS: VANCOMYCIN HCL 500 MG in DEXTROSE 5%-WATER 100 ML IV SCH ×2 (10:13→22:00)
[2018-07-13] MEDS: CEFTRIAXONE SODIUM 1,000 MG in DEXTROSE 5%-WATER 50 ML IV SCH (10:38)
[2018-07-13] MEDS: PANTOPRAZOLE SODIUM 40 MG VIAL IV SCH ×2 (11:06→21:57)
[2018-07-13] MEDS ORDERED: LORAZEPAM INJ 2 MG/1 ML VIAL ONE ×2 (13:37→18:30)
[2018-07-13] MEDS: FUROSEMIDE INJ/PF 40 MG/4 ML SDV IV SCH ×2 (13:42→21:57)
--- NOTE | 2018-07-13 14:31 | PDOC PROGRESS REPORT ---
Subjective Progress Note for:: 07/13/18 Subjective:: This is a 52-year-old male with a history of uncontrolled diabetes from noncompliance who was admitted for acute encephalopathy and severe DKA. Uterus was also noted to be positive for cocaine. He was started on IV fluids, bicarbonate and insulin drip. 07/13: He developed crackles yesterday and IV fluids were stopped. Chest x-ray did show possible pulmonary edema. He was started on IV Lasix. Patient had an episode of agitation overnight and complained of pain. He was given fentanyl and he developed hypercapnic episodes and transient desaturation after that. He did subsequently recover. Is currently saturating well and appears comfortable on BIPAP. Upon encounter this morning, he remains awake but remains confused. Reason For Visit: ACUTE SEVERE DIABETIC KETOACIDOSIS, HYPOTHERMIA, Physical Exam Vital Signs: Temp Pulse Resp BP Pulse Ox 96.8 F L 68 31 H 170/94 H 98 07/13/18 08:00 07/13/18 10:44 07/13/18 11:01 07/13/18 10:44 07/13/18 10:44 Intake & Output 07/12/18 07/13/18 07/14/18 06:59 06:59 06:59 Intake Total 5117 3465 Output Total 2800 3900 450 Balance 2317 -435 -450 Weight 112 lb 10.499 oz 124 lb 5.451 oz General appearance: PRESENT: mild distress Head exam: PRESENT: atraumatic, normocephalic Eye exam: PRESENT: conjunctiva pink, EOMI, PERRLA. ABSENT: scleral icterus Ear exam: PRESENT: normal external ear exam Mouth exam: PRESENT: moist, tongue midline Neck exam: ABSENT: carotid bruit, JVD, lymphadenopathy, thyromegaly Respiratory exam: PRESENT: rales, rhonchi. ABSENT: wheezes Cardiovascular exam: PRESENT: RRR. ABSENT: diastolic murmur, rubs, systolic murmur Pulses: PRESENT: normal dorsalis pedis pul GI/Abdominal exam: PRESENT: normal bowel sounds, soft. ABSENT: distended, guarding, mass, organolmegaly, rebound, tenderness Rectal exam: PRESENT: deferred Neurological exam: PRESENT: altered, awake, CN II-XII grossly intact. ABSENT: motor sensory deficit Results Laboratory Results: 07/13/18 03:08 07/13/18 03:08 07/12/18 07/12/18 07/12/18 14:03 15:40 17:36 WBC RBC Hgb Hct MCV MCH MCHC RDW Plt Count Seg Neutrophils % Lymphocytes % Monocytes % Eosinophils % Basophils % Absolute Neutrophils Absolute Lymphocytes Absolute Monocytes Absolute Eosinophils Absolute Basophils Carbonic Acid HCO3/H2CO3 Ratio ABG pH ABG pCO2 ABG pO2 ABG HCO3 ABG O2 Saturation ABG Base Excess FiO2 Sodium 143.0 Potassium 3.7 D Chloride 104 Carbon Dioxide 34 H Anion Gap 5 BUN 13 Creatinine 0.97 Est GFR ( Amer) > 60 Est GFR (Non-Af Amer) > 60 Glucose 231 H Lactic Acid 2.0 Calcium 6.4 L* Magnesium Total Bilirubin AST ALT Alkaline Phosphatase Total Protein Albumin Blood Type A POSITIVE 07/12/18 07/13/18 07/13/18 20:45 00:18 00:18 WBC RBC Hgb Hct MCV MCH MCHC RDW Plt Count Seg Neutrophils % Lymphocytes % Monocytes % Eosinophils % Basophils % Absolute Neutrophils Absolute Lymphocytes Absolute Monocytes Absolute Eosinophils Absolute Basophils Carbonic Acid HCO3/H2CO3 Ratio ABG pH ABG pCO2 ABG pO2 ABG HCO3 ABG O2 Saturation ABG Base Excess FiO2 Sodium 146.8 H Potassium 3.8 Chloride 107 Carbon Dioxide 22 D Anion Gap 18 BUN 17 Creatinine 1.14 Est GFR ( Amer) > 60 Est GFR (Non-Af Amer) > 60 Glucose 379 H Lactic Acid 1.3 Calcium 6.4 L* Magnesium Total Bilirubin AST ALT Alkaline Phosphatase Total Protein Albumin 2.3 L Blood Type 07/13/18 07/13/18 07/13/18 03:08 03:08 03:08 WBC 7.1 RBC 3.15 L Hgb 10.4 L Hct 30.0 L MCV 95 MCH 33.1 MCHC 34.7 RDW 14.5 H Plt Count 163 Seg Neutrophils % Not Reportable Lymphocytes % Not Reportable Monocytes % Not Reportable Eosinophils % Not Reportable Basophils % Not Reportable Absolute Neutrophils Not Reportable Absolute Lymphocytes Not Reportable Absolute Monocytes Not Reportable Absolute Eosinophils Not Reportable Absolute Basophils Not Reportable Carbonic Acid HCO3/H2CO3 Ratio ABG pH ABG pCO2 ABG pO2 ABG HCO3 ABG O2 Saturation ABG Base Excess FiO2 Sodium 148.9 H Potassium 3.7 Chloride 106 Carbon Dioxide 22 Anion Gap 21 H BUN 16 Creatinine 1.16 Est GFR ( Amer) > 60 Est GFR (Non-Af Amer) > 60 Glucose 229 H Lactic Acid 10.4 H Calcium 6.8 L* Magnesium 1.7 Total Bilirubin 0.3 AST 65 H ALT 110 H Alkaline Phosphatase 129 H Total Protein 4.9 L Albumin 2.6 L Blood Type 07/13/18 07/13/18 07/13/18 04:25 06:11 10:10 WBC RBC Hgb Hct MCV MCH MCHC RDW Plt Count Seg Neutrophils % Lymphocytes % Monocytes % Eosinophils % Basophils % Absolute Neutrophils Absolute Lymphocytes Absolute Monocytes Absolute Eosinophils Absolute Basophils Carbonic Acid 1.00 L HCO3/H2CO3 Ratio 26:1 ABG pH 7.51 H ABG pCO2 33.2 L ABG pO2 92.4 ABG HCO3 26.0 H ABG O2 Saturation 97.7 ABG Base Excess 3.1 FiO2 30% Sodium Potassium Chloride Carbon Dioxide Anion Gap BUN Creatinine Est GFR ( Amer) Est GFR (Non-Af Amer) Glucose Lactic Acid 8.1 H 2.0 Calcium Magnesium Total Bilirubin AST ALT Alkaline Phosphatase Total Protein Albumin Blood Type 07/11/18 21:07 Catheterized Urine Urine Culture - Final NO GROWTH 2 DAYS 07/11/18 07/11/18 07/11/18 21:07 22:11 22:11 Creatine Kinase Cancelled 116 CK-MB (CK-2) 3.35 Troponin I < 0.012 07/12/18 07/12/18 07/12/18 04:06 04:06 09:50 Creatine Kinase 123 118 CK-MB (CK-2) 4.31 Troponin I < 0.012 07/12/18 07/13/18 07/13/18 09:50 06:40 06:40 Creatine Kinase 207 H CK-MB (CK-2) 4.34 2.23 Troponin I 0.021 < 0.012 Impressions: Soft Tissue Neck CT 07/12/18 13:20 IMPRESSION: No evidence of abscess. Abdomen X-Ray 07/13/18 06:47 IMPRESSION: 1. Stable chest findings partially imaged. 2. No acute abdominal findings. Chest X-Ray 07/13/18 08:35 IMPRESSION: Stable AP examination with extensive bilateral interstitial and heterogeneous opacity and small pleural effusions. No new airspace opacity. Cardiomegaly. Assessment and Plan - Diagnosis (1) Acute encephalopathy Is this a current diagnosis for this admission?: Yes Plan: Possibly secondary to severe DKA and cocaine use. No nuchal rigidity on exam. No fever or leukocytosis. (2) DKA (diabetic ketoacidoses) Qualifiers: Diabetes mellitus type: type 1 Diabetes mellitus complication detail: without coma Qualified Code(s): E10.10 - Type 1 diabetes mellitus with ketoacidosis without coma Is this a current diagnosis for this admission?: Yes Plan: Resolved. (3) Acute kidney failure Qualifiers: Acute renal failure type: unspecified Qualified Code(s): N17.9 - Acute kidney failure, unspecified Is this a current diagnosis for this admission?: Yes Plan: Resolved with IV fluids. (4) Fluid overload Is this a current diagnosis for this admission?: Yes Plan: Likely related to aggressive fluid resuscitation. Chest x-ray today shows minimal improvement but still shows congestive changes. Continue IV Lasix. - Time Time Spent with patient: 25-34 minutes
[2018-07-13] MEDS ORDERED: LORAZEPAM INJ 2 MG/1 ML VIAL IV ONE ×3 (15:00→19:30)
--- NOTE | 2018-07-13 16:03 | RADIOLOGY REPORT (SQ) ---
EXAM DESCRIPTION: CTA ABDOMEN/PELVIS W WO COMPLETED DATE/TIME: 07/13/2018 3:47 pm REASON FOR STUDY: ischemic bowel COMPARISON: None. TECHNIQUE: CT scan of the abdomen and pelvis performed with intravenous contrast, and without oral c ontrast. Contrasted imaging performed helical scanning technique and dynamic intravenous contrast inj ection. Images reviewed with lung, soft tissue, and bone windows. Reconstructed coronal and sagittal MPR images reviewed. Delayed images for evaluation of the urinary system also acquired. All images st ored on PACS. All CT scanners at this facility use dose modulation, iterative reconstruction, and/or weight based d osing when appropriate to reduce radiation dose to as low as reasonably achievable (ALARA). [facility]: Dose Right [facility]: CareDose [facility]: Dose Right [facility]: Teradose 4D [facility]: Bent Pixels CONTRAST TYPE AND DOSE: contrast/concentration: Isovue 350.00 mg/ml; Total Contrast Delivered: 46.0 ml; Total Saline Delivered: 76.0 ml RENAL FUNCTION: GFR > 60. RADIATION DOSE: CT Rad equipment meets quality standard of care and radiation dose reduction techniq ues were employed. CTDIvol: 8.4 - 29.6 mGy. DLP: 921 mGy-cm.. LIMITATIONS: Streak artifact from the patient's arm positioning. FINDINGS: LOWER CHEST: Bilateral small pleural effusions. Subsegmental atelectasis and consolidatio n particularly in the left lower lobe. LIVER: Limiting streak artifact. No gross lesions. SPLEEN: Normal size. No focal lesions. PANCREAS: Grossly normal. GALLBLADDER: No identified stones by CT criteria. No inflammatory changes to suggest cholecystitis. ADRENAL GLANDS: No significant masses or asymmetry. RIGHT KIDNEY AND URETER: No solid masses. No significant calcification. No hydronephrosis or hydroure ter. LEFT KIDNEY AND URETER: No solid masses. No significant calcification. No hydronephrosis or hydrouret er. AORTA AND VESSELS: Normal caliber aorta. Mild kinked appearance of the celiac axis just beyond origi n but otherwise patent. Widely patent SMA and GIACOMO. No venous clot detected. Bilateral single renal arteries look patent. RETROPERITONEUM: No retroperitoneal adenopathy, hemorrhage or masses. BOWEL AND PERITONEAL CAVITY: No evidence of mechanical bowel obstruction. No abnormal gas in the abd omen or pelvis. Mild mesenteric edema with mild ascites in the right pericolic gutter tracking into the pelvis. Moderate pelvic fluid is noted. Fluid looks relatively simple. APPENDIX: Normal. PELVIS: Bladder decompressed by Meyer catheter. Pelvic fluid. No mass. ABDOMINAL WALL: No mass or hernia. Diffuse edema in the subcutaneous tissues suggestive of anasarca. BONES: No significant or acute findings. OTHER: No other significant finding. IMPRESSION: 1. Bilateral pulmonary basilar changes as above including pleural effusion and consolidation/volume l oss in the left lower lobe. 2. Nonspecific ascites throughout the abdomen and pelvis. This may be related generalized fluid over load depending on clinical presentation. There is also anasarca suggested in the soft tissues. 3. No evidence of mechanical bowel obstruction. No focal suspicious bowel wall thickening or abnorma l gas collections. Mesenteric arteries look patent. TECHNICAL DOCUMENTATION: JOB ID: [id number] Quality ID # [id number]: Final reports with documentation of one or more dose reduction techniques (e.g., Au tomated exposure control, adjustment of the mA and/or kV according to patient size, use of iterative reconstruction technique) 2010 [employer]- All Rights Reserved Reading location - IP/workstation name: [email or web address]
[2018-07-13] MEDS: INSULIN LISPRO 100 UNIT/ML 3 ML VIAL SUBCUT SCH ×2 (17:39→22:21)
[2018-07-13 18:08] LABS: ANION GAP 10 (5-19); BLOOD UREA NITROGEN 20 mg/dL (7-20); CHLORIDE 100 mmol/L (98-107); GLUCOSE 361 mg/dL (75-110); POTASSIUM 3.7 mmol/L (3.6-5.0); SODIUM 146.1 mmol/L (137-145)
[2018-07-13 18:20] LABS: CALCIUM 6.8 mg/dL (8.4-10.2); CARBON DIOXIDE 36 mmol/L (22-30)
[2018-07-13] MEDS: ACETYLCYSTEINE 10% NEB 400 MG/4 ML VIAL NEB SCH (19:47)
--- NOTE | 2018-07-13 19:58 | XCELERA REPORT ---
[address] [address] Transthoracic Echocardiogram Report Name: AMPARO PHAN Age: 52 yrs Gender: Male : 1965 Patient Status: Inpatient Patient Location: ICU^602^A Study Date: 07/13/2018 02:09 PM Height: 66 in Weight: 124 lb BSA: 1.6 m2 Procedure: A two-dimensional transthoracic echocardiogram with color flow and Doppler was performed. Study Quality: Fair. Reason For Study: Gram Positive Bacteremia / Murmu / Endocarditis History: Gram Positive Bacteremia / Murmu / Endocarditis. Ordering Physician: MOHSEN MARTIN Performed By: Naomi Garza Interpretation Summary The left ventricle is normal in size. There is normal left ventricular wall thickness. LV EF is 65% The left ventricular ejection fraction is within normal limits. Doppler measurements suggest impaired left ventricular relaxation, which is associated with grade I/IV or mild diastolic dysfunction The left ventricular wall motion is normal. There is no thrombus. There is no ventricular septal defect visualized. The right ventricle is normal in size and function. The right atrium is normal. The left atrial size is normal. The interatrial septum is intact with no evidence for an atrial septal defect. There is no Doppler evidence for an interatrial shunt There is no evidence of mitral valve prolapse. There is no vegetation seen on the mitral valve. There is no mitral valve stenosis. Mild eccentric posteriorly directed MR jet. There is no aortic valve stenosis There is no LVOT obstruction. No aortic regurgitation is present. There is no tricuspid valve vegetation. There is no tricuspid stenosis. There is a mild amount of tricuspid regurgitation There is mild pulmonary hypertension by echo RVSP s 42 to 47 mm of Hg , wih RA mean of 5 to 10. There is no vegetation on the pulmonic valve. There is no pulmonic valvular stenosis. There is a mild amount of pulmonic regurgitation The aortic root is normal size. The inferior vena cava appeared normal and decreased > 50% with respiration (RAP 5-10 mmHg) There is no pericardial effusion. MMode/2D Measurements & Calculations RVDd: 2.6 cm LVIDd: 4.3 cm FS: 31.3 % Ao root diam: 3.3 cm IVSd: 0.99 cm LVIDs: 2.9 cm EDV(Teich): Ao root area: LVPWd: 0.99 cm 81.5 ml 8.8 cm2 ESV(Teich): LA dimension: 3.0 cm 33.0 ml EF(Teich): 59.5 % LVLd ap4: 7.9 cm SV(MOD-sp4): EDV(MOD-sp4): 50.0 ml 80.0 ml LVLs ap4: 6.0 cm ESV(MOD-sp4): 30.0 ml EF(MOD-sp4): 62.5 % Doppler Measurements & Calculations MV E max monika: MV P1/2t max monika: Ao V2 max: LV V1 max P.3 cm/sec 93.3 cm/sec 104.4 cm/sec 2.6 mmHg MV A max monika: MV P1/2t: 57.3 msec Ao max PG: LV V1 max: 97.2 cm/sec MVA(P1/2t): 3.8 cm2 4.4 mmHg 80.9 cm/sec MV E/A: 0.95 MV dec slope: 476.6 cm/sec2 MV dec time: 0.18 sec PA V2 max: PI end-d monika: TR max monika: MV P1/2t-pr_phl: 75.5 cm/sec 139.8 cm/sec 302.7 cm/sec 54.9 msec PA max PG: TR max P.3 mmHg 36.6 mmHg Left Ventricle The left ventricle is normal in size. There is normal left ventricular wall thickness. LV EF is 65%. The left ventricular ejection fraction is within normal limits. Doppler measurements suggest impaired left ventricular relaxation, which is associated with grade I/IV or mild diastolic dysfunction. The left ventricular wall motion is normal. There is no thrombus. There is no ventricular septal defect visualized. Right Ventricle The right ventricle is normal in size and function. Atria The right atrium is normal. The left atrial size is normal. The interatrial septum is intact with no evidence for an atrial septal defect. There is no Doppler evidence for an interatrial shunt. Mitral Valve There is no evidence of mitral valve prolapse. There is no vegetation seen on the mitral valve. There is no mitral valve stenosis. Mild eccentric posteriorly directed MR jet. Aortic Valve There is no aortic valvular vegetation. There is no aortic valve stenosis. There is no LVOT obstruction. No aortic regurgitation is present. Tricuspid Valve There is no tricuspid valve vegetation. There is no tricuspid stenosis. There is a mild amount of tricuspid regurgitation. There is mild pulmonary hypertension by echo. RVSP s 42 to 47 mm of Hg , wih RA mean of 5 to 10. Pulmonic Valve There is no vegetation on the pulmonic valve. There is no pulmonic valvular stenosis. There is a mild amount of pulmonic regurgitation. Great Vessels The aortic root is normal size. The inferior vena cava appeared normal and decreased > 50% with respiration (RAP 5-10 mmHg). Effusions There is no pericardial effusion. : MOHSEN MARTIN > Dannielle Joshi
[2018-07-13] MEDS: OLANZAPINE INJ/PF 10 MG SDV IM PRN (20:02)
[2018-07-13] MEDS: INSULIN GLARGINE,HUM.REC.ANLOG 1,000 UNIT/10 ML VIAL SUBCUT SCH (22:22)
[2018-07-14] MEDS: ACETYLCYSTEINE 10% NEB 400 MG/4 ML VIAL NEB SCH ×3 (00:06→15:45)
[2018-07-14] MEDS: LEVALBUTEROL HCL NEB 0.63 MG/3 ML AMPUL NEB PRN ×3 (00:06→15:45)
[2018-07-14] MEDS: DIAZEPAM INJ 10 MG/2 ML DISP.SYRIN IV PRN ×2 (00:24→03:58)
[2018-07-14] MEDS: DEXAMETHASONE SOD PHOSPHATE INJ 4 MG/1 ML VIAL IV SCH ×5 (00:24→23:04)
[2018-07-14] MEDS: INSULIN LISPRO 100 UNIT/ML 3 ML VIAL SUBCUT SCH ×4 (03:58→22:45)
[2018-07-14] MEDS: OLANZAPINE INJ/PF 10 MG SDV IM PRN (04:11)
[2018-07-14] MEDS: HEPARIN SOD (PORCINE) 5,000 UNIT/ML 1 ML SYRINGE SUBCUT SCH ×3 (05:58→21:44)
[2018-07-14 06:01] LABS: HEMOGLOBIN 10.3 g/dL (13.5-17.0); MEAN CORPUSCULAR HEMOGLOBIN 32.6 pg (27.0-33.4); MEAN CORPUSCULAR HGB CONC 34.5 g/dL (32.0-36.0); MEAN CORPUSCULAR VOLUME 95 fl (80-97); PLATELET COUNT 140 10^3/uL (150-450); RED BLOOD COUNT 3.17 10^6/uL (4.35-5.55); RED CELL DISTRIBUTION WIDTH 14.6 % (11.5-14.0); WHITE BLOOD COUNT 6.5 10^3/uL (4.0-10.5)
[2018-07-14 06:13] LABS: ALANINE AMINOTRANSFERASE 98 U/L (21-72); ALBUMIN 2.5 g/dL (3.5-5.0); ALKALINE PHOSPHATASE 127 U/L (38-126); ANION GAP 12 (5-19); ASPARTATE AMINO TRANSFERASE 57 U/L (17-59); BILIRUBIN,DIRECT 0.3 mg/dL (0.0-0.4); BILIRUBIN,TOTAL 0.3 mg/dL (0.2-1.3); BLOOD UREA NITROGEN 22 mg/dL (7-20); CARBON DIOXIDE 35 mmol/L (22-30); CHLORIDE 101 mmol/L (98-107); GLUCOSE 229 mg/dL (75-110); POTASSIUM 3.2 mmol/L (3.6-5.0); SODIUM 148.1 mmol/L (137-145); TOTAL PROTEIN 4.7 g/dL (6.3-8.2)
[2018-07-14 06:26] LABS: CALCIUM 6.6 mg/dL (8.4-10.2)
[2018-07-14] MEDS: POTASSI CL 20 MEQ/50 ML RIDER 20 MEQ/50 ML RTUPB IV SCH ×2 (06:57→07:49)
[2018-07-14 07:37] LABS: ABSOLUTE LYMPHOCYTES# (MANUAL) 0.1 10^3/uL (0.5-4.7); ABSOLUTE MONOCYTES # (MANUAL) 0.3 10^3/uL (0.1-1.4); BAND NEUTROPHILS % (MANUAL) 6 % (3-5); BASOPHILS % (MANUAL) 0 % (0-2); EOSINOPHILS % (MANUAL) 0 % (0-6); LYMPHOCYTES % (MANUAL) 2 % (13-45); MONOCYTES % (MANUAL) 5 % (3-13); SEGMENTED NEUTROPHILS % (MAN) 87 % (42-78); TOTAL CELLS COUNTED 100
[2018-07-14 07:38] LABS: ANISOCYTOSIS SLIGHT; HYPOCHROMASIA 1+; PLATELET COMMENT DECREASED
[2018-07-14] MEDS: METOCLOPRAMIDE HCL INJ/PF 10 MG/2 ML SDV IV SCH ×4 (07:49→21:44)
[2018-07-14] MEDS: NORMAL SALINE 1000 ML 1,000 ML IV PRN (07:52)
[2018-07-14] MEDS: CEFTRIAXONE SODIUM 1,000 MG in DEXTROSE 5%-WATER 50 ML IV SCH (09:52)
[2018-07-14] MEDS: FUROSEMIDE INJ/PF 40 MG/4 ML SDV IV SCH ×2 (09:52→21:44)
[2018-07-14] MEDS: VANCOMYCIN HCL 500 MG in DEXTROSE 5%-WATER 100 ML IV SCH ×2 (09:52→21:44)
[2018-07-14] MEDS: PANTOPRAZOLE SODIUM 40 MG VIAL IV SCH (09:52)
--- NOTE | 2018-07-14 09:55 | RADIOLOGY REPORT (SQ) ---
EXAM DESCRIPTION: CHEST SINGLE VIEW COMPLETED DATE/TIME: 07/14/2018 9:36 am REASON FOR STUDY: reassess congestion COMPARISON: 07/13/2018. EXAM PARAMETERS: NUMBER OF VIEWS: One view. TECHNIQUE: Single frontal radiographic view of the chest acquired. RADIATION DOSE: NA LIMITATIONS: None. FINDINGS: LUNGS AND PLEURA: Improvement in the basilar airspace disease. Small right pleural effusi on has improved. MEDIASTINUM AND HILAR STRUCTURES: No masses. Contour normal. HEART AND VASCULAR STRUCTURES: Heart normal in size. Normal vasculature. BONES: No acute findings. HARDWARE: Surgical clips. OTHER: No other significant finding. IMPRESSION: IMPROVED APPEARANCE OF THE CHEST. TECHNICAL DOCUMENTATION: JOB ID: [id number] [employer]- All Rights Reserved Reading location - IP/workstation name: [email or web address]
[2018-07-14] MEDS ORDERED: CALCIUM GLUCONATE 1000 MG/10 ML INJ IV ONE (11:21)
--- NOTE | 2018-07-14 12:16 | PDOC PROGRESS REPORT ---
Subjective Progress Note for:: 07/14/18 Subjective:: This is a 52-year-old male with a history of uncontrolled diabetes from noncompliance who was admitted for acute encephalopathy and severe DKA. UDS was also noted to be positive for cocaine. He was started on IV fluids, bicarbonate and insulin drip. 07/13: He developed crackles yesterday and IV fluids were stopped. Chest x-ray did show possible pulmonary edema. He was started on IV Lasix. Patient had an episode of agitation overnight and complained of pain. He was given fentanyl and he developed hypercapnic episodes and transient desaturation after that. He did subsequently recover. Is currently saturating well and appears comfortable on BIPAP. Upon encounter this morning, he remains awake but remains confused. 07/14: Patient had an episode of agitation and was given zyprexa and ativan last night. Currently sedated on encounter this morning. He is breathing comfortably and is saturating well on nasal cannula. Reason For Visit: ACUTE SEVERE DIABETIC KETOACIDOSIS, HYPOTHERMIA, Physical Exam Vital Signs: Temp Pulse Resp BP Pulse Ox 97.0 F 78 19 156/103 H 100 07/14/18 08:00 07/14/18 10:00 07/14/18 10:13 07/14/18 10:13 07/14/18 10:13 Intake & Output 07/13/18 07/14/18 07/15/18 06:59 06:59 06:59 Intake Total 3465 250 950 Output Total 3900 4700 175 Balance -435 -4450 775 Weight 124 lb 5.451 oz 111 lb 15.917 oz General appearance: PRESENT: no acute distress, well-developed, well-nourished Head exam: PRESENT: atraumatic, normocephalic Eye exam: PRESENT: conjunctiva pink, EOMI, PERRLA. ABSENT: scleral icterus Ear exam: PRESENT: normal external ear exam Mouth exam: PRESENT: moist, tongue midline Neck exam: ABSENT: carotid bruit, JVD, lymphadenopathy, thyromegaly Respiratory exam: PRESENT: rhonchi. ABSENT: rales, wheezes Cardiovascular exam: PRESENT: RRR. ABSENT: diastolic murmur, rubs, systolic murmur Pulses: PRESENT: normal dorsalis pedis pul GI/Abdominal exam: PRESENT: normal bowel sounds, soft. ABSENT: distended, guarding, mass, organolmegaly, rebound, tenderness Rectal exam: PRESENT: deferred Neurological exam: PRESENT: other - sedated Results Laboratory Results: 07/14/18 05:39 07/14/18 05:39 07/13/18 07/13/18 07/14/18 17:02 17:30 03:50 WBC RBC Hgb Hct MCV MCH MCHC RDW Plt Count Seg Neutrophils % Lymphocytes % Monocytes % Eosinophils % Basophils % Absolute Neutrophils Absolute Lymphocytes Absolute Monocytes Absolute Eosinophils Absolute Basophils Sodium 146.1 H Potassium 3.7 Chloride 100 Carbon Dioxide 36 H D Anion Gap 10 BUN 20 Creatinine 1.00 Est GFR ( Amer) > 60 Est GFR (Non-Af Amer) > 60 Glucose 361 H Lactic Acid 1.8 Calcium 6.8 L* Magnesium Total Bilirubin AST ALT Alkaline Phosphatase Total Protein Albumin Stool Occult Blood POSITIVE 07/14/18 07/14/18 05:39 05:39 WBC 6.5 RBC 3.17 L Hgb 10.3 L Hct 30.0 L MCV 95 MCH 32.6 MCHC 34.5 RDW 14.6 H Plt Count 140 L Seg Neutrophils % Not Reportable Lymphocytes % Not Reportable Monocytes % Not Reportable Eosinophils % Not Reportable Basophils % Not Reportable Absolute Neutrophils Not Reportable Absolute Lymphocytes Not Reportable Absolute Monocytes Not Reportable Absolute Eosinophils Not Reportable Absolute Basophils Not Reportable Sodium 148.1 H Potassium 3.2 L Chloride 101 Carbon Dioxide 35 H Anion Gap 12 BUN 22 H Creatinine 0.95 Est GFR ( Amer) > 60 Est GFR (Non-Af Amer) > 60 Glucose 229 H Lactic Acid Calcium 6.6 L* Magnesium 1.8 Total Bilirubin 0.3 AST 57 ALT 98 H Alkaline Phosphatase 127 H Total Protein 4.7 L Albumin 2.5 L Stool Occult Blood 07/11/18 21:07 Catheterized Urine Urine Culture - Final NO GROWTH 2 DAYS 07/11/18 07/11/18 07/11/18 21:07 22:11 22:11 Creatine Kinase Cancelled 116 CK-MB (CK-2) 3.35 Troponin I < 0.012 07/12/18 07/12/18 07/12/18 04:06 04:06 09:50 Creatine Kinase 123 118 CK-MB (CK-2) 4.31 Troponin I < 0.012 06/04/19 06/05/19 06/05/19 09:50 06:40 06:40 Creatine Kinase 207 H CK-MB (CK-2) 4.34 2.23 Troponin I 0.021 < 0.012 Impressions: Soft Tissue Neck CT 07/12/18 13:20 IMPRESSION: No evidence of abscess. Abdomen/Pelvis CTA 07/13/18 00:00 IMPRESSION: 1. Bilateral pulmonary basilar changes as above including pleural effusion and consolidation/volume loss in the left lower lobe. 2. Nonspecific ascites throughout the abdomen and pelvis. This may be related generalized fluid overload depending on clinical presentation. There is also anasarca suggested in the soft tissues. 3. No evidence of mechanical bowel obstruction. No focal suspicious bowel wall thickening or abnormal gas collections. Mesenteric arteries look patent. Abdomen X-Ray 07/13/18 06:47 IMPRESSION: 1. Stable chest findings partially imaged. 2. No acute abdominal findings. Chest X-Ray 07/14/18 08:54 IMPRESSION: IMPROVED APPEARANCE OF THE CHEST. Assessment and Plan - Diagnosis (1) Acute encephalopathy Is this a current diagnosis for this admission?: Yes Plan: Possibly secondary to severe DKA and cocaine use. No nuchal rigidity on exam. No fever or leukocytosis. 07/14: Patient continues to have agitation and required zyprexa and ativan overnight. Will check a head CT. Will reassess mentation today and will consider LP if there is no improvement in his mentation. (2) Fluid overload Is this a current diagnosis for this admission?: Yes Plan: Likely related to aggressive fluid resuscitation. Chest x-ray today shows minimal improvement but still shows congestive changes. Continue IV Lasix. 07/14: Repeat chest x-ray this morning shows improvement of congestion. Continue diuresis today. (3) DKA (diabetic ketoacidoses) Qualifiers: Diabetes mellitus type: type 1 Diabetes mellitus complication detail: without coma Qualified Code(s): E10.10 - Type 1 diabetes mellitus with ketoacidosis without coma Is this a current diagnosis for this admission?: Yes Plan: Resolved. (4) Acute kidney failure Qualifiers: Acute renal failure type: unspecified Qualified Code(s): N17.9 - Acute kidney failure, unspecified Is this a current diagnosis for this admission?: Yes Plan: Resolved with IV fluids. - Time Time Spent with patient: 25-34 minutes
--- NOTE | 2018-07-14 13:11 | RADIOLOGY REPORT (SQ) ---
EXAM DESCRIPTION: CT HEAD WITHOUT COMPLETED DATE/TIME: 07/14/2018 12:55 pm REASON FOR STUDY: persistent AMS COMPARISON: 04/09/2018. TECHNIQUE: Axial images acquired through the brain without intravenous contrast. Images reviewed wi th bone, brain and subdural windows. Additional sagittal and coronal reconstructions were generated. Images stored on PACS. All CT scanners at this facility use dose modulation, iterative reconstruction, and/or weight based d osing when appropriate to reduce radiation dose to as low as reasonably achievable (ALARA). [facility]: Dose Right [facility]: CareDose [facility]: Dose Right [facility]: Teradose 4D [facility]: Giiv RADIATION DOSE: CT Rad equipment meets quality standard of care and radiation dose reduction techniq ues were employed. CTDIvol: 48.5 mGy. DLP: 855 mGy-cm. mGy. LIMITATIONS: None. FINDINGS: VENTRICLES: Normal size and contour. CEREBRUM: No masses. No hemorrhage. No midline shift. No evidence for acute infarction. Normal gra y/white matter differentiation. 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 CEREBELLUM: No masses. No hemorrhage. No alteration of density. No evidence for acute infarction. EXTRAAXIAL SPACES: No fluid collections. No masses. ORBITS AND GLOBE: No intra- or extraconal masses. Normal contour of globe without masses. CALVARIUM: No fracture. PARANASAL SINUSES: No fluid or mucosal thickening. SOFT TISSUES: No mass or hematoma. OTHER: No other significant finding. IMPRESSION: STABLE BRAIN CT WITHOUT CONTRAST. 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 NO AC [employer] FINDINGS. EVIDENCE OF ACUTE STROKE: NO. COMMENT: Quality ID # [id number]: Final reports with documentation of one or more dose reduction techniques (e.g., Automated exposure control, adjustment of the mA and/or kV according to patient size, use of iterative reconstruction technique) TECHNICAL DOCUMENTATION: JOB ID: [id number] [email or web address]- All Rights Reserved Reading location - IP/workstation name: [email or web address]
[2018-07-14 20:53] LABS: ARTERIAL BLOOD BASE EXCESS 12.2 mmol/L; ARTERIAL BLOOD H2CO3 1.51 mmol/L (1.05-1.35); ARTERIAL BLOOD HCO3 37.1 mmol/L (20-24); ARTERIAL BLOOD PCO2 50.3 mmHg (35-45); ARTERIAL BLOOD PH 7.49 (7.35-7.45); ARTERIAL BLOOD PO2 104.1 mmHg (80-100); ARTERIAL BLOOD TOTAL CO2 38.7 mmol/L (23-27)
[2018-07-14 20:54] LABS: ARTERIAL BLOOD FIO2 2L
[2018-07-14 22:08] LABS: VANCOMYCIN,TROUGH 10.4 ug/mL (5.0-20.0)
[2018-07-15] MEDS: ACETYLCYSTEINE 10% NEB 400 MG/4 ML VIAL NEB SCH ×2 (00:07→07:46)
[2018-07-15] MEDS: LEVALBUTEROL HCL NEB 0.63 MG/3 ML AMPUL NEB PRN ×2 (00:07→07:46)
[2018-07-15 04:32] LABS: BLOOD UREA NITROGEN 25 mg/dL (7-20); CHLORIDE 99 mmol/L (98-107); GLUCOSE 281 mg/dL (75-110)
[2018-07-15 04:36] LABS: ANION GAP 8 (5-19)
[2018-07-15] MEDS: INSULIN LISPRO 100 UNIT/ML 3 ML VIAL SUBCUT SCH ×4 (04:39→23:58)
[2018-07-15 04:44] LABS: CALCIUM 6.7 mg/dL (8.4-10.2); CARBON DIOXIDE 40 mmol/L (22-30)
[2018-07-15] MEDS: HEPARIN SOD (PORCINE) 5,000 UNIT/ML 1 ML SYRINGE SUBCUT SCH ×3 (05:26→21:30)
[2018-07-15] MEDS: DEXAMETHASONE SOD PHOSPHATE INJ 4 MG/1 ML VIAL IV SCH (05:26)
--- NOTE | 2018-07-15 07:30 | RADIOLOGY REPORT (SQ) ---
EXAM DESCRIPTION: XR CHEST 1 VIEW COMPLETED DATE/TME: 07/15/2018 07:00 CLINICAL HISTORY: 52 years Male, reassess congestion COMPARISON: None. NUMBER OF VIEWS/TECHNIQUE: 1/AP FINDINGS: Increased lung volume, clear parenchyma, normal cardiac silhouette, and intact bony thorax. Right hilar clips. IMPRESSION: No acute cardiopulmonary findings.
[2018-07-15] MEDS: HYDRALAZINE HCL INJ/PF 20 MG/1 ML SDV IV PRN ×2 (09:11→16:30)
[2018-07-15] MEDS: METOCLOPRAMIDE HCL INJ/PF 10 MG/2 ML SDV IV SCH ×2 (09:13→10:33)
[2018-07-15 09:42] LABS: ARTERIAL BLOOD BASE EXCESS 13.4 mmol/L; ARTERIAL BLOOD H2CO3 1.63 mmol/L (1.05-1.35); ARTERIAL BLOOD HCO3 39.1 mmol/L (20-24); ARTERIAL BLOOD O2 SATURATION 95.2 % (94-98); ARTERIAL BLOOD PH 7.48 (7.35-7.45); ARTERIAL BLOOD PO2 72.1 mmHg (80-100); ARTERIAL BLOOD TOTAL CO2 40.8 mmol/L (23-27)
[2018-07-15 09:43] LABS: ARTERIAL BLOOD FIO2 25%
[2018-07-15] MEDS: HALOPERIDOL LACTATE INJ 5 MG/1 ML VIAL IV PRN (09:49)
[2018-07-15] MEDS: FUROSEMIDE INJ/PF 40 MG/4 ML SDV IV SCH (10:33)
[2018-07-15] MEDS: CEFTRIAXONE SODIUM 1,000 MG in DEXTROSE 5%-WATER 50 ML IV SCH (10:33)
[2018-07-15] MEDS: VANCOMYCIN HCL 500 MG in DEXTROSE 5%-WATER 100 ML IV SCH (10:59)
[2018-07-15] MEDS ORDERED: LORAZEPAM INJ 2 MG/1 ML VIAL ONE (13:00)
--- NOTE | 2018-07-15 14:26 | PDOC PROGRESS REPORT ---
Subjective Progress Note for:: 07/15/18 Subjective:: This is a 52-year-old male with a history of uncontrolled diabetes from noncompliance who was admitted for acute encephalopathy and severe DKA. UDS was also noted to be positive for cocaine. He was started on IV fluids, bicarbonate and insulin drip. 07/13: He developed crackles yesterday and IV fluids were stopped. Chest x-ray did show possible pulmonary edema. He was started on IV Lasix. Patient had an episode of agitation overnight and complained of pain. He was given fentanyl and he developed hypercapnic episodes and transient desaturation after that. He did subsequently recover. Is currently saturating well and appears comfortable on BIPAP. Upon encounter this morning, he remains awake but remains confused. 07/14: Patient had an episode of agitation and was given zyprexa and ativan last night. Currently sedated on encounter this morning. He is breathing comfortably and is saturating well on nasal cannula. 07/15: No acute event overnight. Patient woke up this morning and has been more conversant and oriented. He is oriented to person, place as well as the year. He has been agitated as he is insisting on drinking water and advancing his diet after being told that we are waiting for speech therapy to evaluate his swallow. Reason For Visit: ACUTE SEVERE DIABETIC KETOACIDOSIS, HYPOTHERMIA, Physical Exam Vital Signs: Temp Pulse Resp BP Pulse Ox 98.2 F 87 23 H 134/87 H 100 07/15/18 08:00 07/15/18 10:00 07/15/18 10:08 07/15/18 10:08 07/15/18 10:00 Intake & Output 07/14/18 07/15/18 07/16/18 06:59 06:59 06:59 Intake Total 250 1050 Output Total 4700 2415 200 Balance -4450 -1365 -200 Weight 111 lb 15.917 oz 107 lb 2.314 oz General appearance: PRESENT: no acute distress, well-developed, well-nourished Head exam: PRESENT: atraumatic, normocephalic Eye exam: PRESENT: conjunctiva pink, EOMI, PERRLA. ABSENT: scleral icterus Ear exam: PRESENT: normal external ear exam Neck exam: ABSENT: carotid bruit, JVD, lymphadenopathy, thyromegaly Respiratory exam: PRESENT: clear to auscultation baldemar. ABSENT: rales, rhonchi, wheezes Cardiovascular exam: PRESENT: RRR. ABSENT: diastolic murmur, rubs, systolic murmur Pulses: PRESENT: normal dorsalis pedis pul GI/Abdominal exam: PRESENT: normal bowel sounds, soft. ABSENT: distended, guarding, mass, organolmegaly, rebound, tenderness Rectal exam: PRESENT: deferred Neurological exam: PRESENT: alert, awake, oriented to person, oriented to place, oriented to time, CN II-XII grossly intact - [id number]. ABSENT: motor sensory deficit Results Laboratory Results: 07/14/18 05:39 07/15/18 03:58 07/14/18 07/14/18 07/14/18 16:21 16:21 20:41 Carbonic Acid 1.51 H HCO3/H2CO3 Ratio 24:1 ABG pH 7.49 H ABG pCO2 50.3 H ABG pO2 104.1 H ABG HCO3 37.1 H ABG O2 Saturation 98.0 ABG Base Excess 12.2 FiO2 2L Sodium Potassium Chloride Carbon Dioxide Anion Gap BUN Creatinine Est GFR ( Amer) Est GFR (Non-Af Amer) Glucose Calcium Ionized Calcium Ashley 0.91 L Magnesium Albumin TSH 0.09 L 07/15/18 07/15/18 07/15/18 03:58 03:58 09:30 Carbonic Acid 1.63 H HCO3/H2CO3 Ratio 23:1 ABG pH 7.48 H ABG pCO2 54.0 H ABG pO2 72.1 L ABG HCO3 39.1 H ABG O2 Saturation 95.2 ABG Base Excess 13.4 FiO2 25% Sodium 147.0 H Potassium 4.0 Chloride 99 Carbon Dioxide 40 H* Anion Gap 8 BUN 25 H Creatinine 0.92 Est GFR ( Amer) > 60 Est GFR (Non-Af Amer) > 60 Glucose 281 H Calcium 6.7 L* Ionized Calcium Ashley Magnesium 1.9 Albumin 2.6 L TSH 07/11/18 07/11/18 07/11/18 21:07 22:11 22:11 Creatine Kinase Cancelled 116 CK-MB (CK-2) 3.35 Troponin I < 0.012 07/12/18 07/12/18 07/12/18 04:06 04:06 09:50 Creatine Kinase 123 118 CK-MB (CK-2) 4.31 Troponin I < 0.012 07/12/18 07/13/18 07/13/18 09:50 06:40 06:40 Creatine Kinase 207 H CK-MB (CK-2) 4.34 2.23 Troponin I 0.021 < 0.012 Impressions: Soft Tissue Neck CT 07/12/18 13:20 IMPRESSION: No evidence of abscess. Abdomen/Pelvis CTA 07/13/18 00:00 IMPRESSION: 1. Bilateral pulmonary basilar changes as above including pleural effusion and consolidation/volume loss in the left lower lobe. 2. Nonspecific ascites throughout the abdomen and pelvis. This may be related generalized fluid overload depending on clinical presentation. There is also anasarca suggested in the soft tissues. 3. No evidence of mechanical bowel obstruction. No focal suspicious bowel wall thickening or abnormal gas collections. Mesenteric arteries look patent. Abdomen X-Ray 07/13/18 06:47 IMPRESSION: 1. Stable chest findings partially imaged. 2. No acute abdominal findings. Head CT 07/14/18 11:21 IMPRESSION: STABLE BRAIN CT WITHOUT CONTRAST. 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 NO ACUTE FINDINGS. EVIDENCE OF ACUTE STROKE: NO. Chest X-Ray 07/15/18 07:00 IMPRESSION: No acute cardiopulmonary findings. Assessment and Plan - Diagnosis (1) Acute encephalopathy Is this a current diagnosis for this admission?: Yes Plan: Possibly secondary to severe DKA and cocaine use. No nuchal rigidity on exam. No fever or leukocytosis. 07/14: Patient continues to have agitation and required zyprexa and ativan overnight. Will check a head CT. Will reassess mentation today and will consider LP if there is no improvement in his mentation. 07/15: Patient woke up this morning and has been more conversant and oriented. He is oriented to person, place as well as the year. He has been agitated as he is insisting on drinking water and advancing his diet after being told that we are waiting for speech therapy to evaluate his swallow. (2) Fluid overload Is this a current diagnosis for this admission?: Yes Plan: Likely related to aggressive fluid resuscitation. Chest x-ray today shows minimal improvement but still shows congestive changes. Continue IV Lasix. 07/14: Repeat chest x-ray this morning shows improvement of congestion. Continue diuresis today. 07/15: Resolved. Chest x-ray shows complete resolution of fluid congestion. He is actually now on the dry side. He has contraction alkalosis. Discontinue Lasix. Will start him on normal saline at 50 cc/h. (3) DKA (diabetic ketoacidoses) Qualifiers: Diabetes mellitus type: type 1 Diabetes mellitus complication detail: with out coma Qualified Code(s): E10.10 - Type 1 diabetes mellitus with ketoac idosis without coma Is this a current diagnosis for this admission?: Yes Plan: Resolved. (4) Acute kidney failure Qualifiers: Acute renal failure type: unspecified Qualified Code(s): N17.9 - Acute kidney failure, unspecified Is this a current diagnosis for this admission?: Yes Plan: Resolved with IV fluids. - Time Time Spent with patient: 25-34 minutes
[2018-07-15] MEDS: ACETAZOLAMIDE 250 MG TABLET PO SCH ×2 (14:36→21:30)
[2018-07-15] MEDS ORDERED: QUETIAPINE FUMARATE 25 MG TABLET PO ONE (15:00)
[2018-07-15 15:14] LABS: FREE T3 2.38 pg/mL (2.77-5.27); FREE T4 (FREE THYROXINE) 1.68 ng/dL (0.78-2.19)
[2018-07-15] MEDS ORDERED: DIAZEPAM INJ 10 MG/2 ML DISP.SYRIN IV ONE (15:15)
[2018-07-15] MEDS: QUETIAPINE FUMARATE 25 MG TABLET PO SCH (21:30)
[2018-07-15] MEDS: NORMAL SALINE 1000 ML 1,000 ML IV PRN (21:31)
[2018-07-15] MEDS ORDERED: VANCOMYCIN HCL 750 MG in DEXTROSE 5%-WATER 250 ML IV SCH (22:00)
[2018-07-16] MEDS: HALOPERIDOL LACTATE INJ 5 MG/1 ML VIAL IV PRN (02:49)
[2018-07-16] MEDS: INSULIN LISPRO 100 UNIT/ML 3 ML VIAL SUBCUT SCH ×3 (05:15→18:26)
[2018-07-16] MEDS: HEPARIN SOD (PORCINE) 5,000 UNIT/ML 1 ML SYRINGE SUBCUT SCH ×3 (05:16→21:14)
[2018-07-16] MEDS: LEVALBUTEROL HCL NEB 0.63 MG/3 ML AMPUL NEB PRN (08:46)
[2018-07-16] MEDS: CEFTRIAXONE SODIUM 1,000 MG in DEXTROSE 5%-WATER 50 ML IV SCH (10:57)
[2018-07-16] MEDS: ACETAZOLAMIDE 250 MG TABLET PO SCH ×2 (11:00→21:15)
--- NOTE | 2018-07-16 12:38 | PDOC PROGRESS REPORT ---
Subjective Progress Note for:: 07/16/18 Subjective:: This is 52 years old male patient was past medical history of polysubstance abuse, uncontrolled diabetes mellitus, hypertension and CHF, presented with altered mental status. At admission patient found to be hyperglycemic with blood sugar of 897 pH of 6.77 bicarb of less than 5 and ketonuria. Patient managed accordingly for DKA in ICU. His condition is improved he is downgraded and transferred to [facility] yesterday. His urine drug screen is positive for cocaine. This morning I seen patient lying in bed looks sedated. There is no sign of respiratory distress. His vital signs are relatively stable. Reason For Visit: ACUTE SEVERE DIABETIC KETOACIDOSIS, HYPOTHERMIA, Physical Exam Vital Signs: Temp Pulse Resp BP Pulse Ox 97.3 F 50 L 14 168/81 H 100 07/16/18 11:25 07/16/18 11:25 07/16/18 11:25 07/16/18 11:25 07/16/18 11:25 Intake & Output 07/15/18 07/16/18 07/17/18 06:59 06:59 06:59 Intake Total 1050 400 Output Total 2415 2075 Balance -1365 -1675 Weight 48.6 kg 47.2 kg Results Laboratory Results: 07/14/18 05:39 07/15/18 03:58 07/15/18 03:58 Free T4 1.68 Free T3 pg/mL 2.38 L 07/11/18 19:39 Blood Blood Culture - Final Micrococcus Species 07/11/18 07/11/18 07/11/18 21:07 22:11 22:11 Creatine Kinase Cancelled 116 CK-MB (CK-2) 3.35 Troponin I < 0.012 07/12/18 07/12/18 07/12/18 04:06 04:06 09:50 Creatine Kinase 123 118 CK-MB (CK-2) 4.31 Troponin I < 0.012 07/12/18 07/13/18 07/13/18 09:50 06:40 06:40 Creatine Kinase 207 H CK-MB (CK-2) 4.34 2.23 Troponin I 0.021 < 0.012 Impressions: Soft Tissue Neck CT 07/12/18 13:20 IMPRESSION: No evidence of abscess. Abdomen/Pelvis CTA 07/13/18 00:00 IMPRESSION: 1. Bilateral pulmonary basilar changes as above including pleural effusion and consolidation/volume loss in the left lower lobe. 2. Nonspecific ascites throughout the abdomen and pelvis. This may be related generalized fluid overload depending on clinical presentation. There is also anasarca suggested in the soft tissues. 3. No evidence of mechanical bowel obstruction. No focal suspicious bowel wall thickening or abnormal gas collections. Mesenteric arteries look patent. Abdomen X-Ray 07/13/18 06:47 IMPRESSION: 1. Stable chest findings partially imaged. 2. No acute abdominal findings. Head CT 07/14/18 11:21 IMPRESSION: STABLE BRAIN CT WITHOUT CONTRAST. 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 NO ACUTE FINDINGS. EVIDENCE OF ACUTE STROKE: NO. Chest X-Ray 07/15/18 07:00 IMPRESSION: No acute cardiopulmonary findings. Assessment and Plan - Diagnosis (1) Acute metabolic encephalopathy Is this a current diagnosis for this admission?: Yes Plan: Resolved (2) DKA (diabetic ketoacidoses) Qualifiers: Diabetes mellitus type: type 2 Is this a current diagnosis for this admission?: Yes Plan: Resolved (3) Metabolic acidosis Is this a current diagnosis for this admission?: Yes Plan: Resolved (4) ISELA (acute kidney injury) Is this a current diagnosis for this admission?: Yes Plan: Resolved (5) Polysubstance abuse Is this a current diagnosis for this admission?: Yes Plan: Patient will be counseled.
[2018-07-16] MEDS: NORMAL SALINE 1000 ML 1,000 ML IV PRN (19:52)
[2018-07-16] MEDS: HYDRALAZINE HCL INJ/PF 20 MG/1 ML SDV IV PRN (19:55)
[2018-07-16] MEDS: QUETIAPINE FUMARATE 25 MG TABLET PO SCH (21:14)
[2018-07-17] MEDS: INSULIN LISPRO 100 UNIT/ML 3 ML VIAL SUBCUT SCH ×4 (00:16→17:14)
[2018-07-17 05:24] LABS: ANION GAP 13 (5-19); BLOOD UREA NITROGEN 17 mg/dL (7-20); CALCIUM 8.1 mg/dL (8.4-10.2); CARBON DIOXIDE 21 mmol/L (22-30); CHLORIDE 106 mmol/L (98-107); GLUCOSE 304 mg/dL (75-110); POTASSIUM 3.4 mmol/L (3.6-5.0); SODIUM 139.7 mmol/L (137-145)
[2018-07-17 06:14] LABS: HEMATOCRIT 37.1 % (37.9-51.0); HEMOGLOBIN 12.1 g/dL (13.5-17.0); MEAN CORPUSCULAR HEMOGLOBIN 31.9 pg (27.0-33.4); MEAN CORPUSCULAR HGB CONC 32.5 g/dL (32.0-36.0); MEAN CORPUSCULAR VOLUME 98 fl (80-97); PLATELET COUNT 126 10^3/uL (150-450); RED BLOOD COUNT 3.79 10^6/uL (4.35-5.55); RED CELL DISTRIBUTION WIDTH 15.1 % (11.5-14.0); WHITE BLOOD COUNT 3.9 10^3/uL (4.0-10.5)
[2018-07-17] MEDS: HEPARIN SOD (PORCINE) 5,000 UNIT/ML 1 ML SYRINGE SUBCUT SCH ×3 (06:19→22:03)
[2018-07-17] MEDS: LEVALBUTEROL HCL NEB 0.63 MG/3 ML AMPUL NEB PRN (09:57)
[2018-07-17] MEDS: ACETAZOLAMIDE 250 MG TABLET PO SCH (10:26)
[2018-07-17] MEDS: CEFTRIAXONE SODIUM 1,000 MG in DEXTROSE 5%-WATER 50 ML IV SCH (10:55)
[2018-07-17 11:04] LABS: VANCOMYCIN,TROUGH 5.7 ug/mL (5.0-20.0)
--- NOTE | 2018-07-17 13:32 | PDOC PROGRESS REPORT ---
Subjective Progress Note for:: 07/17/18 Subjective:: Patient seen sleeping in his bed. He is sedated. He has been on Seroquel 50 mg p.o. fell back to sleep. He was given Haldol 3 mg yesterday night. Reportedly patient stay awake during the night sometimes with agitation and he uses profane language. He responds appropriately to his name and arouse briefly and he fell back sleep quickly Reason For Visit: ACUTE SEVERE DIABETIC KETOACIDOSIS, HYPOTHERMIA, Physical Exam Vital Signs: Temp Pulse Resp BP Pulse Ox 97.5 F 77 18 140/73 H 98 07/17/18 11:12 07/17/18 11:12 07/17/18 11:12 07/17/18 11:12 07/17/18 11:12 Intake & Output 07/16/18 07/17/18 07/18/18 06:59 06:59 06:59 Intake Total 400 1050 Output Total 2075 1250 100 Balance -1675 -200 -100 Weight 47.2 kg 47.1 kg General appearance: PRESENT: no acute distress Respiratory exam: PRESENT: clear to auscultation baldemar. ABSENT: rales, rhonchi, wheezes Cardiovascular exam: PRESENT: RRR. ABSENT: diastolic murmur, rubs, systolic murmur Results Laboratory Results: 07/17/18 06:07 07/17/18 10:17 07/17/18 07/17/18 07/17/18 04:22 04:42 06:07 WBC Cancelled 3.9 L RBC Cancelled 3.79 L Hgb Cancelled 12.1 L Hct Cancelled 37.1 L MCV Cancelled 98 H MCH Cancelled 31.9 MCHC Cancelled 32.5 RDW Cancelled 15.1 H Plt Count Cancelled 126 L Sodium 139.7 Potassium 3.4 L Chloride 106 Carbon Dioxide 21 L Anion Gap 13 BUN 17 Creatinine 0.84 Est GFR ( Amer) > 60 Est GFR (Non-Af Amer) > 60 Glucose 304 H Calcium 8.1 L 07/17/18 10:17 WBC RBC Hgb Hct MCV MCH MCHC RDW Plt Count Sodium Potassium Chloride Carbon Dioxide Anion Gap BUN Creatinine 0.78 Est GFR ( Amer) > 60 Est GFR (Non-Af Amer) > 60 Glucose Calcium 07/11/18 20:20 Blood Blood Culture - Final NO GROWTH IN 5 DAYS 07/11/18 19:39 Blood Blood Culture - Final Micrococcus Species 07/11/18 07/11/18 07/11/18 21:07 22:11 22:11 Creatine Kinase Cancelled 116 CK-MB (CK-2) 3.35 Troponin I < 0.012 07/12/18 07/12/18 07/12/18 04:06 04:06 09:50 Creatine Kinase 123 118 CK-MB (CK-2) 4.31 Troponin I < 0.012 07/12/18 07/13/18 07/13/18 09:50 06:40 06:40 Creatine Kinase 207 H CK-MB (CK-2) 4.34 2.23 Troponin I 0.021 < 0.012 Impressions: Soft Tissue Neck CT 07/12/18 13:20 IMPRESSION: No evidence of abscess. Abdomen/Pelvis CTA 07/13/18 00:00 IMPRESSION: 1. Bilateral pulmonary basilar changes as above including pleural effusion and consolidation/volume loss in the left lower lobe. 2. Nonspecific ascites throughout the abdomen and pelvis. This may be related generalized fluid overload depending on clinical presentation. There is also anasarca suggested in the soft tissues. 3. No evidence of mechanical bowel obstruction. No focal suspicious bowel wall thickening or abnormal gas collections. Mesenteric arteries look patent. Abdomen X-Ray 07/13/18 06:47 IMPRESSION: 1. Stable chest findings partially imaged. 2. No acute abdominal findings. Head CT 07/14/18 11:21 IMPRESSION: STABLE BRAIN CT WITHOUT CONTRAST. 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 NO ACUTE FINDINGS. EVIDENCE OF ACUTE STROKE: NO. Chest X-Ray 07/15/18 07:00 IMPRESSION: No acute cardiopulmonary findings. Assessment and Plan - Diagnosis (1) Acute metabolic encephalopathy Is this a current diagnosis for this admission?: Yes Plan: Resolved (2) DKA (diabetic ketoacidoses) Qualifiers: Diabetes mellitus type: type 2 Is this a current diagnosis for this admission?: Yes Plan: Resolved (3) Metabolic acidosis Is this a current diagnosis for this admission?: Yes Plan: Resolved (4) ISELA (acute kidney injury) Is this a current diagnosis for this admission?: Yes Plan: Resolved (5) Polysubstance abuse Is this a current diagnosis for this admission?: Yes Plan: Patient will be counseled.
[2018-07-17] MEDS: NORMAL SALINE 1000 ML 1,000 ML IV PRN (16:46)
[2018-07-17] MEDS: HALOPERIDOL LACTATE INJ 5 MG/1 ML VIAL IV PRN (22:02)
[2018-07-17] MEDS: QUETIAPINE FUMARATE 25 MG TABLET PO SCH (22:02)
[2018-07-18] MEDS: INSULIN LISPRO 100 UNIT/ML 3 ML VIAL SUBCUT SCH ×5 (00:54→23:53)
[2018-07-18] MEDS: HEPARIN SOD (PORCINE) 5,000 UNIT/ML 1 ML SYRINGE SUBCUT SCH ×3 (07:03→21:27)
[2018-07-18] MEDS: CEFTRIAXONE SODIUM 1,000 MG in DEXTROSE 5%-WATER 50 ML IV SCH (10:34)
--- NOTE | 2018-07-18 14:36 | PDOC PROGRESS REPORT ---
Subjective Progress Note for:: 07/18/18 Subjective:: This is 52 years old male patient was past medical history of polysubstance abuse, uncontrolled diabetes mellitus, hypertension and CHF, presented with altered mental status. At admission patient found to be hyperglycemic with blood sugar of 897 pH of 6.77 bicarb of less than 5 and ketonuria. Patient managed accordingly for DKA in ICU. His condition is improved he is downgraded and transferred to [facility] His urine drug screen is positive for cocaine. Patient sleeps only. He responds to painful and verbal stimuli appropriately. Patient is arousable with verbal stimuli but he quickly falls back to sleep. He has been on Seroquel and Haldol which I discontinued. 06/17/2018: No significant change overnight. As usual patient seen while sleeping. His mom and his brother were in the room. Mom told me this is his norm. She said she is not able to take care of him and she wants him to be rehab. She is also debilitated and deconditioned is. partner integration planner consulted for rehab placement. Reason For Visit: ACUTE SEVERE DIABETIC KETOACIDOSIS, HYPOTHERMIA, Physical Exam Vital Signs: Temp Pulse Resp BP Pulse Ox 97.4 F 74 15 132/83 H 100 07/18/18 11:42 07/18/18 11:42 07/18/18 11:42 07/18/18 11:42 07/18/18 11:42 Intake & Output 07/17/18 07/18/18 07/19/18 06:59 06:59 06:59 Intake Total 1050 1050 Output Total 1250 850 Balance -200 200 Weight 47.1 kg 46.6 kg General appearance: PRESENT: no acute distress Head exam: PRESENT: atraumatic Eye exam: PRESENT: conjunctiva pink Mouth exam: PRESENT: moist Neck exam: ABSENT: carotid bruit, JVD, lymphadenopathy, thyromegaly Respiratory exam: PRESENT: clear to auscultation baldemar. ABSENT: rales, rhonchi, wheezes Cardiovascular exam: PRESENT: RRR. ABSENT: diastolic murmur, rubs, systolic murmur Results Laboratory Results: 07/17/18 06:07 07/17/18 10:17 07/11/18 19:39 Blood Blood Culture - Final Micrococcus Species 07/11/18 07/11/18 07/11/18 21:07 22:11 22:11 Creatine Kinase Cancelled 116 CK-MB (CK-2) 3.35 Troponin I < 0.012 07/12/18 07/12/18 07/12/18 04:06 04:06 09:50 Creatine Kinase 123 118 CK-MB (CK-2) 4.31 Troponin I < 0.012 07/12/18 07/13/18 07/13/18 09:50 06:40 06:40 Creatine Kinase 207 H CK-MB (CK-2) 4.34 2.23 Troponin I 0.021 < 0.012 Impressions: Soft Tissue Neck CT 07/12/18 13:20 IMPRESSION: No evidence of abscess. Abdomen/Pelvis CTA 07/13/18 00:00 IMPRESSION: 1. Bilateral pulmonary basilar changes as above including pleural effusion and consolidation/volume loss in the left lower lobe. 2. Nonspecific ascites throughout the abdomen and pelvis. This may be related generalized fluid overload depending on clinical presentation. There is also anasarca suggested in the soft tissues. 3. No evidence of mechanical bowel obstruction. No focal suspicious bowel wall thickening or abnormal gas collections. Mesenteric arteries look patent. Abdomen X-Ray 07/13/18 06:47 IMPRESSION: 1. Stable chest findings partially imaged. 2. No acute abdominal findings. Head CT 07/14/18 11:21 IMPRESSION: STABLE BRAIN CT WITHOUT CONTRAST. 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 NO ACUTE FINDINGS. EVIDENCE OF ACUTE STROKE: NO. Chest X-Ray 07/15/18 07:00 IMPRESSION: No acute cardiopulmonary findings. Assessment and Plan - Diagnosis (1) Acute metabolic encephalopathy Is this a current diagnosis for this admission?: Yes Plan: Resolved (2) DKA (diabetic ketoacidoses) Qualifiers: Diabetes mellitus type: type 2 Is this a current diagnosis for this admission?: Yes Plan: Resolved (3) Metabolic acidosis Is this a current diagnosis for this admission?: Yes Plan: Resolved (4) ISELA (acute kidney injury) Is this a current diagnosis for this admission?: Yes Plan: Resolved (5) Polysubstance abuse Is this a current diagnosis for this admission?: Yes Plan: Patient will be counseled.
[2018-07-18] MEDS: NORMAL SALINE 1000 ML 1,000 ML IV PRN (15:50)
[2018-07-19] MEDS: HEPARIN SOD (PORCINE) 5,000 UNIT/ML 1 ML SYRINGE SUBCUT SCH ×3 (05:17→21:35)
[2018-07-19] MEDS: INSULIN LISPRO 100 UNIT/ML 3 ML VIAL SUBCUT SCH ×4 (07:25→21:42)
[2018-07-19] MEDS: CEFTRIAXONE SODIUM 1,000 MG in DEXTROSE 5%-WATER 50 ML IV SCH (09:45)
[2018-07-19 12:17] LABS: URINE AMPHETAMINES SCREEN NEGATIVE; URINE BARBITURATES SCREEN NEGATIVE; URINE COCAINE SCREEN NEGATIVE; URINE MARIJUANA (THC) SCREEN NEGATIVE; URINE METHADONE SCREEN NEGATIVE; URINE PHENCYCLIDINE SCREEN NEGATIVE
[2018-07-19 12:28] LABS: URINE BENZODIAZEPINES SCREEN UNCONFIRMED POSITIVE
[2018-07-19] MEDS: NORMAL SALINE 1000 ML 1,000 ML IV PRN (17:27)
[2018-07-19] MEDS: HYDRALAZINE HCL INJ/PF 20 MG/1 ML SDV IV PRN (21:42)
[2018-07-20] MEDS ORDERED: ACETAMINOPHEN 325 MG TABLET PO PRN (00:06)
[2018-07-20] MEDS: HEPARIN SOD (PORCINE) 5,000 UNIT/ML 1 ML SYRINGE SUBCUT SCH ×2 (05:04→13:14)
[2018-07-20] MEDS: INSULIN LISPRO 100 UNIT/ML 3 ML VIAL SUBCUT SCH ×2 (07:39→11:39)
[2018-07-20] MEDS: NICOTINE 21 MG/24 HR PATCH.TD24 TD PRN (08:27)
[2018-07-20] MEDS ORDERED: INSULIN LISPRO 100 UNIT/ML 3 ML VIAL SUBCUT ONE (08:30)
[2018-07-20] MEDS ORDERED: ASPIRIN 81 MG TABLET, ENT COATED PO SCH (10:00)
[2018-07-20] MEDS ORDERED: INSULIN GLARGINE,HUM.REC.ANLOG 1,000 UNIT/10 ML VIAL SUBCUT SCH (10:00)
[2018-07-20] MEDS ORDERED: GABAPENTIN 300 MG CAPSULE PO SCH (12:00)
[2018-07-20 16:57] VITALS: BP 163/92
--- NOTE | 2018-07-20 19:51 | PDOC PROGRESS REPORT ---
Subjective Progress Note for:: 07/19/18 Subjective:: Agitated earlier today. Resting comfortably at this time. Reason For Visit: ACUTE SEVERE DIABETIC KETOACIDOSIS, HYPOTHERMIA, Physical Exam Vital Signs: Temp Pulse Resp BP Pulse Ox 97.8 F 89 16 149/83 H 98 07/19/18 13:42 07/19/18 14:00 07/19/18 13:42 07/19/18 13:42 07/19/18 13:42 Intake & Output 07/18/18 07/19/18 07/20/18 06:59 06:59 06:59 Intake Total 1050 2040 50 Output Total 850 1200 Balance 200 840 50 Weight 46.6 kg 48 kg General appearance: PRESENT: mild distress Head exam: PRESENT: atraumatic, normocephalic Respiratory exam: PRESENT: clear to auscultation baldemar, symmetrical. ABSENT: accessory muscle use, rales, rhonchi, tachypnea, wheezes Cardiovascular exam: PRESENT: RRR, +S1, +S2 GI/Abdominal exam: PRESENT: normal bowel sounds, soft. ABSENT: distended, tenderness Rectal exam: PRESENT: deferred Gentrourinary exam: PRESENT: indwelling catheter Extremities exam: ABSENT: pedal edema Neurological exam: PRESENT: alert, awake, oriented to person, oriented to place, oriented to situation Psychiatric exam: PRESENT: agitated - Earlier this morning. Currently calm and in wrist restraints. ABSENT: anxious Focused psych exam: PRESENT: restlessness. ABSENT: delusional Results Laboratory Results: 07/17/18 06:07 07/17/18 10:17 07/14/18 13:34 Blood Blood Culture - Final NO GROWTH IN 5 DAYS 07/14/18 12:33 Blood Blood Culture - Final NO GROWTH IN 5 DAYS 07/11/18 19:39 Blood Blood Culture - Final Micrococcus Species 07/11/18 07/11/18 07/11/18 21:07 22:11 22:11 Creatine Kinase Cancelled 116 CK-MB (CK-2) 3.35 Troponin I < 0.012 07/12/18 07/12/18 07/12/18 04:06 04:06 09:50 Creatine Kinase 123 118 CK-MB (CK-2) 4.31 Troponin I < 0.012 07/12/18 07/13/18 07/13/18 09:50 06:40 06:40 Creatine Kinase 207 H CK-MB (CK-2) 4.34 2.23 Troponin I 0.021 < 0.012 Impressions: Soft Tissue Neck CT 07/12/18 13:20 IMPRESSION: No evidence of abscess. Abdomen/Pelvis CTA 07/13/18 00:00 IMPRESSION: 1. Bilateral pulmonary basilar changes as above including pleural effusion and consolidation/volume loss in the left lower lobe. 2. Nonspecific ascites throughout the abdomen and pelvis. This may be related generalized fluid overload depending on clinical presentation. There is also anasarca suggested in the soft tissues. 3. No evidence of mechanical bowel obstruction. No focal suspicious bowel wall thickening or abnormal gas collections. Mesenteric arteries look patent. Abdomen X-Ray 07/13/18 06:47 IMPRESSION: 1. Stable chest findings partially imaged. 2. No acute abdominal findings. Head CT 07/14/18 11:21 IMPRESSION: STABLE BRAIN CT WITHOUT CONTRAST. 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 NO ACUTE FINDINGS. EVIDENCE OF ACUTE STROKE: NO. Chest X-Ray 07/15/18 07:00 IMPRESSION: No acute cardiopulmonary findings. Assessment and Plan - Diagnosis (1) Acute metabolic encephalopathy Is this a current diagnosis for this admission?: Yes Plan: Resolved 07/19/2018-the patient is having episodes of agitation and confusion. It is difficult to know if this is related to his history of polysubstance abuse. His initial urine toxicology screen was positive for cocaine. He could also be having a paradoxical reaction to the medications used for his agitation. The Seroquel and Haldol had been discontinued. (2) DKA (diabetic ketoacidoses) Qualifiers: Diabetes mellitus type: type 1 Diabetes mellitus complication detail: without coma Qualified Code(s): E10.10 - Type 1 diabetes mellitus with ketoacidosis without coma Is this a current diagnosis for this admission?: Yes Plan: Resolved. 07/19/2018-the patient's anion gap has normalized. His Accu-Cheks are still quite high. I believe some of this is related to the patient not getting equivalent doses of his home insulin. He usually uses the NovoLog 70/30 and takes 40 units in the morning and 30 units in the evening. I will calculate some type of equivalent dosing with medications we have on formulary. For now we will continue the sliding scale. (3) Metabolic acidosis Is this a current diagnosis for this admission?: Yes Plan: Resolved 07/19/2018-the patient's serum pH normalized. The metabolic acidosis has resolved with aggressive hydration and correction of the hyperglycemia. (4) ISELA (acute kidney injury) Is this a current diagnosis for this admission?: Yes Plan: Resolved 07/19/2018-with the treatment of the diabetic ketoacidosis the patient's acute kidney injury resolved by way of aggressive fluid resuscitation. (5) Polysubstance abuse Is this a current diagnosis for this admission?: Yes Plan: Patient will be counseled. 07/19/2018-the patient is slightly agitated today. We will speak of counseling and addiction programs prior to discharge. - Time Time Spent with patient: 15-24 minutes Medications reviewed and adjusted accordingly: Yes
--- NOTE | 2018-07-20 20:09 | PDOC DISCHARGE SUMMARY ---
General - Admit/Disc Date/PCP Admission Date/Primary Care Provider: 07/11/18 20:23 RY CHATTERJEE MD Discharge Date: 07/20/18 - Discharge Diagnosis (1) Acute metabolic encephalopathy Is this a current diagnosis for this admission?: Yes Summary: Since yesterday afternoon the patient has been out of restraints and cooperative. Today he is doing well. A relative is here to pick him up and take him home. The encephalopathy has resolved. (2) DKA (diabetic ketoacidoses) Is this a current diagnosis for this admission?: Yes Summary: The patient's diabetic ketoacidosis was treated with aggressive hydration and insulin. The acidosis has resolved. Unfortunately we have not been able to achieve good glucose control and this is related to trying to establish equivalent dosing for his home regimen. I told him to resume his home dosing and this should get his glucose readings under much better control. He should also stick to a controlled carbohydrate diet. (3) Metabolic acidosis Is this a current diagnosis for this admission?: Yes Summary: Resolved with the treatment of the diabetic ketoacidosis. (4) ISELA (acute kidney injury) Is this a current diagnosis for this admission?: Yes Summary: The BUN and creatinine were increased and the GFR was decreased on admission. With aggressive fluid resuscitation treatment for the diabetic ketoacidosis the acute kidney injury resolved. (5) Polysubstance abuse Is this a current diagnosis for this admission?: Yes Summary: The patient should seek treatment in a rehab program. I reviewed all of the previous hospital toxicology screens and cocaine is consistently present. Encourage cessation of cocaine use. (6) Hyperkalemia Is this a current diagnosis for this admission?: Yes Summary: The patient was found to be hyperkalemic on admission. This is most likely due to the acute kidney injury. This resolved with treatment of the diabetic ketoacidosis. (7) Hypothermia Is this a current diagnosis for this admission?: Yes Summary: Patient was found to be hypothermic at the time of admission. In the intensive care unit he was placed on a bear hugger warming blanket. Hypothermia has resolved. (8) Hypotension Is this a current diagnosis for this admission?: Yes Summary: Upon admission to the ICU the patient had hypotensive requiring vasopressors. With the aggressive fluid resuscitation he was able to wean off of pressor therapy. - Additional Information Resuscitation Status: Full Code Home Medications: Aspirin [Adult Low Dose Aspirin EC] 81 mg PO DAILY 07/13/18 Gabapentin [Neurontin 300 mg Capsule] 300 mg PO Q6 07/13/18 Insulin Aspart Prot/Insuln Asp [Novolog Mix 70-30 Flexpen Syrn] 30 units SQ QPM 07/13/18 Insulin Aspart Prot/Insuln Asp [Novolog Mix 70-30 Flexpen Syrn] 40 units SQ QAM 07/13/18 Losartan Potassium [Cozaar 100 mg Tablet] 200 mg PO DAILY 07/13/18 Multivitamin [Multiple Vitamins] 1 tab PO DAILY 07/13/18 Nicotine [Nicoderm 21 mg/24 Hr Transderm Patch] 1 each TD DAILYP PRN patch.[id number] 07/20/18 History of Present Illness Patient complains of: The patient's neighbors noticed confusion and altered mental status and the patient. Family was called and proceeded to bring the patient to the emergency department. History of Present Illness: AMPARO PHAN is a 52 year old male with history of cocaine use. He was noted to be confused by his neighbors. Contacted family members. When they arrived the patient was delirious. He was transported to the [facility]. He was found to have a serum glucose of 897 with a venous pH of 6.77 and bicarb less than 5. He was likely in diabetic ketoacidosis with profound metabolic acidosis. Urine toxicology screen was positive for cocaine. He was referred to the hospital service for admission. Hospital Course Hospital Course: The patient was initially admitted to the intensive care unit for high volume fluids and insulin infusion as well as treatment for the severe acidosis.. The patient's hypotension and hypothermia corrected. Over several days the acute kidney injury resolved. The patient still had encephalopathy possibly related to his substance abuse. He did require restraints and was given sedating medications. It is not likely to be related to alcohol withdrawal as his serum alcohol is less than 10 however this does not completely mitigate the possi bility of alcohol withdrawal as well. Once stable he was transferred to the [facility]. He continued to have some episodes of agitation. Eventually this settled down and for the last 24+ hours he has been out of restraints and cooperative. He is still quite weak. His Accu-Cheks have been difficult to control and part of this is due to trying to adopt his home regimen to the hospital's formulary. This should correct when he is home. Physical Exam Vital Signs: Temp Pulse Resp BP Pulse Ox 97.4 F 72 17 166/81 H 100 07/20/18 12:17 07/20/18 14:00 07/20/18 12:17 07/20/18 12:17 07/20/18 12:17 Intake & Output 07/19/18 07/20/18 07/21/18 06:59 06:59 06:59 Intake Total 2040 2130 1657 Output Total 1200 2025 575 Balance 932 770 0365 Weight 48 kg 49.9 kg General appearance: PRESENT: no acute distress, cooperative, thin, well- developed Head exam: PRESENT: atraumatic, normocephalic Ear exam: PRESENT: normal external ear exam Teeth exam: PRESENT: poor dentation Respiratory exam: PRESENT: clear to auscultation baldemar, symmetrical, unlabored. ABSENT: accessory muscle use, rhonchi, tachypnea, wheezes Cardiovascular exam: PRESENT: RRR, +S1, +S2 GI/Abdominal exam: PRESENT: normal bowel sounds, soft. ABSENT: distended, t enderness Rectal exam: PRESENT: deferred Gentrourinary exam: ABSENT: indwelling catheter Extremities exam: ABSENT: pedal edema Musculoskeletal exam: PRESENT: ambulatory, normal inspection. ABSENT: deformity Neurological exam: PRESENT: awake, oriented to person, oriented to place, oriented to time, oriented to situation. ABSENT: alert - Slightly somnolent Psychiatric exam: PRESENT: appropriate affect. ABSENT: agitated, anxious Focused psych exam: ABSENT: delusional, restlessness Skin exam: PRESENT: dry, warm. ABSENT: rash Results Laboratory Results: 07/17/18 06:07 07/17/18 10:17 07/14/18 13:34 Blood Blood Culture - Final NO GROWTH IN 5 DAYS 07/14/18 12:33 Blood Blood Culture - Final NO GROWTH IN 5 DAYS 07/11/18 07/11/18 07/11/18 21:07 22:11 22:11 Creatine Kinase Cancelled 116 CK-MB (CK-2) 3.35 Troponin I < 0.012 07/12/18 07/12/18 07/12/18 04:06 04:06 09:50 Creatine Kinase 123 118 CK-MB (CK-2) 4.31 Troponin I < 0.012 07/12/18 07/13/18 07/13/18 09:50 06:40 06:40 Creatine Kinase 207 H CK-MB (CK-2) 4.34 2.23 Troponin I 0.021 < 0.012 Impressions: Soft Tissue Neck CT 07/12/18 13:20 IMPRESSION: No evidence of abscess. Abdomen/Pelvis CTA 07/13/18 00:00 IMPRESSION: 1. Bilateral pulmonary basilar changes as above including pleural effusion and consolidation/volume loss in the left lower lobe. 2. Nonspecific ascites throughout the abdomen and pelvis. This may be related generalized fluid overload depending on clinical presentation. There is also anasarca suggested in the soft tissues. 3. No evidence of mechanical bowel obstruction. No focal suspicious bowel wall thickening or abnormal gas collections. Mesenteric arteries look patent. Abdomen X-Ray 07/13/18 06:47 IMPRESSION: 1. Stable chest findings partially imaged. 2. No acute abdominal findings. Head CT 07/14/18 11:21 IMPRESSION: STABLE BRAIN CT WITHOUT CONTRAST. 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 NO ACUTE FINDINGS. EVIDENCE OF ACUTE STROKE: NO. Chest X-Ray 07/15/18 07:00 IMPRESSION: No acute cardiopulmonary findings. Qualifiers - * PATIENT BEING DISCHARGED WITH ANY OF THE FOLLOWING DIAGNOSIS: No Acute Heart Failure - Is this a Heart Failure Patient?: No Plan Discharge Plan: Discharged home with home health providing PT, OT, nursing home and 7th grade social studies teacher. Time Spent: Greater than 30 Minutes
== END 2018-07-20 17:07 | disposition home health service (06) | DRG 637 ==
LOC: ER 18:15 → EH 20:23 → ICU 07-12 00:31 → 3S 07-16 03:13
PROVIDERS: ADMIT Emergency Medicine; ATTEND Emergency Medicine
PROC: 5A09557 Assistance with Respiratory Ventilation, Greater than 96 Consecutive Hours, Continuous Positive Airway Pressure (ICD-10-PCS; principal; 2018-07-12)
PROC: 30233L1 Transfusion of Nonautologous Fresh Plasma into Peripheral Vein, Percutaneous Approach (ICD-10-PCS; 2018-07-12)
DX: E11.10 Type 2 diabetes mellitus with ketoacidosis without coma (principal); G93.41 Metabolic encephalopathy; N17.9 Acute kidney failure, unspecified; E87.5 Hyperkalemia; F19.10 Other psychoactive substance abuse, uncomplicated; I95.9 Hypotension, unspecified; I10 Essential (primary) hypertension; F10.20 Alcohol dependence, uncomplicated; F17.200 Nicotine dependence, unspecified, uncomplicated; T68.XXXA Hypothermia, initial encounter; Z60.2 Problems related to living alone; Z78.1 Physical restraint status; Z79.899 Other long term (current) drug therapy; Z79.4 Long term (current) use of insulin; Z79.82 Long term (current) use of aspirin; Z91.19 Patient's noncompliance with other medical treatment and regimen; Z83.3 Family history of diabetes mellitus; Z82.49 Family history of ischemic heart disease and other diseases of the circulatory system
CPT/HCPCS: 36415; 36430; 51701; 51702; 70450; 70491; 71045; 74019; 74174; 80048; 80053; 80202; 80307; 81001; 82040; 82140; 82150; 82272; 82330; 82550; 82553; 82565; 82803; 82947; 82962; 83036; 83605; 83690; 83735; 84100; 84132; 84439; 84443; 84481; 84484; 85025; 85027; 86900; 86901; 87040; 87077; 87086; 87493; 93005; 93010; 93306; 94640; 94660; 96360; 99291; J0360; J0610; J0696; J1100; J1200; J1630; J1644; J1815; J1940; J2060; J2765; J3010; J3360; J3370; J3480; J3490; J7030; J7050; J7060; J7614; P9017; S0164

== ENCOUNTER 2018-07-26 15:45 | Inpatient (IN) | payer MEDICAID, OTHER ==
[2018-07-26 16:20] LABS: ABSOLUTE BASOPHILS # (AUTO) 0.1 10^3/uL (0.0-0.2); ABSOLUTE LYMPHOCYTES (AUTO) 0.7 10^3/uL (0.5-4.7); ABSOLUTE MONOCYTES (AUTO) 0.5 10^3/uL (0.1-1.4); ABSOLUTE NEUT (AUTO) 3.7 10^3/uL (1.7-8.2); EOSINOPHILS % (AUTO) 0.7 % (0-6); LYMPHOCYTES % (AUTO) 13.2 % (13-45); MEAN CORPUSCULAR HEMOGLOBIN 32.7 pg (27.0-33.4); MEAN CORPUSCULAR HGB CONC 34.5 g/dL (32.0-36.0); MEAN CORPUSCULAR VOLUME 95 fl (80-97); MONOCYTES % (AUTO) 10.7 % (3-13); PLATELET COUNT 307 10^3/uL (150-450); RED BLOOD COUNT 2.74 10^6/uL (4.35-5.55); SEGMENTED NEUTROPHILS % (AUTO) 73.4 % (42-78); TOTAL CELLS COUNTED % (AUTO) 100 %; VENOUS BLOOD BASE EXCESS 0.9 mmol/L; VENOUS BLOOD HCO3 25.2 mmol/L (20-32); VENOUS BLOOD PCO2 38.8 mmHg (35-63); VENOUS BLOOD PH 7.43 (7.30-7.42)
[2018-07-26 16:27] LABS: INTERNATIONAL RATION (INR) 0.84; PROTHROMBIN TIME 11.9 SEC (11.4-15.4)
[2018-07-26 16:38] LABS: ALANINE AMINOTRANSFERASE 162 U/L (21-72); ALBUMIN 2.5 g/dL (3.5-5.0); ALKALINE PHOSPHATASE 342 U/L (38-126); ANION GAP 5 (5-19); ASPARTATE AMINO TRANSFERASE 154 U/L (17-59); BILIRUBIN,DIRECT 0.4 mg/dL (0.0-0.4); BILIRUBIN,TOTAL 0.5 mg/dL (0.2-1.3); BLOOD UREA NITROGEN 17 mg/dL (7-20); CALCIUM 8.2 mg/dL (8.4-10.2); CARBON DIOXIDE 31 mmol/L (22-30); CHLORIDE 94 mmol/L (98-107); POTASSIUM 4.6 mmol/L (3.6-5.0); SODIUM 129.9 mmol/L (137-145); TOTAL PROTEIN 5.2 g/dL (6.3-8.2)
[2018-07-26 16:50] LABS: GLUCOSE 612 mg/dL (75-110)
--- NOTE | 2018-07-26 18:28 | ER Document Report ---
ED General - General Chief Complaint: Leg Swelling Stated Complaint: FOOT SWELLING Time Seen by Provider: 07/26/18 18:26 Notes: 52-year-old male to the emergency department chief complaint of worsening swelling to his lower extremities and blistering. Patient states blisters have been appearing in his legs are extremely painful. Was in the hospital a few weeks ago and is only gotten worse. Having some increased shortness of breath. Hurts all over. Denies any fever. TRAVEL OUTSIDE OF THE [place] IN LAST 30 DAYS: No - HPI Onset: Last week Onset/Duration: Gradual, Worse Quality of pain: Throbbing Severity: Moderate Pain Level: 3 Associated symptoms: Other - Shortness of breath, edema, pain, oozing lesions on his legs. - Related Data Allergies/Adverse Reactions: No Known Allergies Allergy (Verified 06/08/17 20:19) Past Medical History - General Information source: Patient, [facility] Records - Social History Smoking Status: Current Every Day Smoker Frequency of alcohol use: Occasional Drug Abuse: None Family History: DM, Hypertension - Past Medical History Cardiac Medical History: Reports: Hx Congestive Heart Failure, Hx Hypertension Pulmonary Medical History: Denies: Hx Asthma, Hx COPD, Hx Respiratory Failure Neurological Medical History: Denies: Hx Seizures Endocrine Medical History: Reports: Hx Diabetes Mellitus Type 2. Denies: Hx Diabetes Mellitus Type 1, Hx Hyperthyroidism, Hx Hypothyroidism Renal/ Medical History: Reports: Hx Renal Insufficiency. Denies: Hx Albertina toneal Dialysis GI Medical History: Denies: Hx Cirrhosis, Hx Crohn's Disease, Hx Gastroesophageal Reflux Disease, Hx Hepatitis, Hx Ulcerative Colitis Musculoskeletal Medical History: Denies Hx Arthritis, Denies Hx Fibromyalgia, Denies Hx Gout Skin Medical History: Denies Hx Eczema, Denies Hx Psoriasis Psychiatric Medical History: Denies: Hx Depression Infectious Medical History: Denies: Hx Hepatitis Past Surgical History: Reports: Other - Denies any recent surgery Review of Systems - Review of Systems Notes: Constitutional: denies: Chills, Diaphoresis, Fever, Malaise, Weakness EENT: denies: Eye discharge, Blurred vision, Tearing, Double vision, Nose congestion, Nose discharge, Throat swelling, Mouth pain Cardiovascular: denies: Palpitations, Heart racing, Orthopnea, Dyspnea, Chest pain Respiratory: denies: Cough, Hurts to breathe, Wheezing, +Shortness of breath Gastrointestinal: denies: Abdominal pain, Diarrhea, Nausea, Vomiting, Black stools, bright red blood in stool Genitourinary: denies: Burning, Dysuria, Discharge, Frequency, Flank pain, Hematuria Musculoskeletal: denies: Joint pain, Joint swelling, Muscle pain, Muscle stiffness, back pain. Pain in his lower extremities with swelling and edema. Hematologic/Lymphatic: denies: Anemia, Easy bleeding, Easy bruising, Blood clots Neurological/Psychological: denies: Confusion, Dementia, Depression, Loss of consciousness Skin: Planing of pustules, breakdown of the lower extremities complaining of oozing lesions on his legs with pain. Physical Exam - Vital signs Vitals: Resp BP Pulse Ox 15 156/89 H 97 07/26/18 16:01 07/26/18 16:01 07/26/18 16:01 Interpretation: Normal - General General appearance: Appears well, Alert - HEENT Head: Normocephalic, Atraumatic Eyes: Normal Pupils: PERRL - Respiratory Respiratory status: No respiratory distress Chest status: Nontender Breath sounds: Normal Chest palpation: Normal - Cardiovascular Rhythm: Regular Heart sounds: Normal auscultation Murmur: No - Abdominal Inspection: Normal Distension: No distension Bowel sounds: Normal Tenderness: Nontender Organomegaly: No organomegaly - Back Back: Normal, Nontender - Extremities General upper extremity: Normal inspection, Nontender, Normal color, Normal ROM, Normal temperature General lower extremity: Normal inspection, Nontender, Edema - Large pitting edema bilateral lower extremities., Normal color, Normal ROM, Normal temperature, Other - Couple small ulcers and drainage on his bilateral lower extremities.. No: Regine's sign - Neurological Neuro grossly intact: Yes Cognition: Normal Orientation: AAOx4 [place] Coma Scale Eye Opening: Spontaneous [place] Coma Scale Verbal: Oriented [place] Coma Scale Motor: Obeys Commands [place] Coma Scale Total: 15 Speech: Normal Motor strength normal: LUE, RUE, LLE, RLE Sensory: Normal - Psychological Associated symptoms: Normal affect, Normal mood - Skin Skin Temperature: Warm Skin Moisture: Dry Skin Color: Other - Will blisters and pustules on the bilateral lower extremities with some oozing. Course - Re-evaluation Re-evalutation: 07/26/18 21:04 Patient was recently hospitalized. Had echocardiogram which showed a EF of 65% however his BNP is over 2000. He has a rather low albumin so this could be a so urce of his edema however could be developing congestive heart failure. Will consult with hospitalist for admission at this time. 07/26/18 21:37 Laboratory 07/26/18 07/26/18 07/26/18 16:00 16:00 16:00 WBC 5.0 RBC 2.74 L Hgb 9.0 L Hct 26.0 L MCV 95 MCH 32.7 MCHC 34.5 RDW 15.0 H Plt Count 307 Seg Neutrophils % 73.4 Lymphocytes % 13.2 Monocytes % 10.7 Eosinophils % 0.7 Basophils % 2.0 Absolute Neutrophils 3.7 Absolute Lymphocytes 0.7 Absolute Monocytes 0.5 Absolute Eosinophils 0.0 Absolute Basophils 0.1 Retic Count (auto) Absolute Retic PT 11.9 INR 0.84 VBG pH VBG pCO2 VBG HCO3 VBG Base Excess Sodium 129.9 L Potassium 4.6 Chloride 94 L Carbon Dioxide 31 H Anion Gap 5 BUN 17 Creatinine 0.55 Est GFR ( Amer) > 60 Est GFR (Non-Af Amer) > 60 Glucose 612 H* Lactic Acid Calcium 8.2 L Total Bilirubin 0.5 Direct Bilirubin 0.4 Neonat Total Bilirubin Not Reportable Neonat Direct Bilirubin Not Reportable Neonat Indirect Bili Not Reportable AST 154 H ALT 162 H Alkaline Phosphatase 342 H NT-Pro-B Natriuret Pep Total Protein 5.2 L Albumin 2.5 L Urine Color Urine Appearance Urine pH Ur Specific [place] Urine Protein Urine Glucose (UA) Urine Ketones Urine Blood Urine Nitrite Urine Bilirubin Urine Urobilinogen Ur Leukocyte Esterase Urine WBC (Auto) Urine RBC (Auto) Urine Mucus (Auto) Urine Ascorbic Acid 07/26/18 07/26/18 07/26/18 16:00 16:00 16:00 WBC RBC Hgb Hct MCV MCH MCHC RDW Plt Count Seg Neutrophils % Lymphocytes % Monocytes % Eosinophils % Basophils % Absolute Neutrophils Absolute Lymphocytes Absolute Monocytes Absolute Eosinophils Absolute Basophils Retic Count (auto) Absolute Retic PT INR VBG pH 7.43 H VBG pCO2 38.8 VBG HCO3 25.2 VBG Base Excess 0.9 Sodium Potassium Chloride Carbon Dioxide Anion Gap BUN Creatinine Est GFR ( Amer) Est GFR (Non-Af Amer) Glucose Lactic Acid 0.8 Calcium Total Bilirubin Direct Bilirubin Neonat Total Bilirubin Neonat Direct Bilirubin Neonat Indirect Bili AST ALT Alkaline Phosphatase NT-Pro-B Natriuret Pep 2130 H Total Protein Albumin Urine Color Urine Appearance Urine pH Ur Specific [place] Urine Protein Urine Glucose (UA) Urine Ketones Urine Blood Urine Nitrite Urine Bilirubin Urine Urobilinogen Ur Leukocyte Esterase Urine WBC (Auto) Urine RBC (Auto) Urine Mucus (Auto) Urine Ascorbic Acid 07/26/18 07/26/18 16:00 18:36 WBC RBC Hgb Hct MCV MCH MCHC RDW Plt Count Seg Neutrophils % Lymphocytes % Monocytes % Eosinophils % Basophils % Absolute Neutrophils Absolute Lymphocytes Absolute Monocytes Absolute Eosinophils Absolute Basophils Retic Count (auto) 1.48 Absolute Retic 0.041 PT INR VBG pH VBG pCO2 VBG HCO3 VBG Base Excess Sodium Potassium Chloride Carbon Dioxide Anion Gap BUN Creatinine Est GFR ( Amer) Est GFR (Non-Af Amer) Glucose Lactic Acid Calcium Total Bilirubin Direct Bilirubin Neonat Total Bilirubin Neonat Direct Bilirubin Neonat Indirect Bili AST ALT Alkaline Phosphatase NT-Pro-B Natriuret Pep Total Protein Albumin Urine Color STRAW Urine Appearance CLEAR Urine pH 6.0 Ur Specific [place] 1.022 Urine Protein NEGATIVE Urine Glucose (UA) >=500 H Urine Ketones TRACE H Urine Blood NEGATIVE Urine Nitrite NEGATIVE Urine Bilirubin NEGATIVE Urine Urobilinogen NEGATIVE Ur Leukocyte Esterase NEGATIVE Urine WBC (Auto) 1 Urine RBC (Auto) 0 Urine Mucus (Auto) RARE Urine Ascorbic Acid NEGATIVE Chest X-Ray 07/26/18 18:28 IMPRESSION: No evidence of acute cardiopulmonary abnormality. Stable, persistent small right-sided pleural effusion. - Vital Signs Vital signs: Temp Pulse Resp BP Pulse Ox 12 187/82 H 99 07/26/18 18:31 07/26/18 18:31 07/26/18 18:31 - Laboratory Result Diagrams: 07/26/18 16:00 07/26/18 16:00 Laboratory results interpreted by me: 07/26/18 07/26/18 07/26/18 16:00 16:00 16:00 RBC 2.74 L Hgb 9.0 L Hct 26.0 L RDW 15.0 H VBG pH 7.43 H Sodium 129.9 L Chloride 94 L Carbon Dioxide 31 H Glucose 612 H* Calcium 8.2 L AST 154 H ALT 162 H Alkaline Phosphatase 342 H NT-Pro-B Natriuret Pep Total Protein 5.2 L Albumin 2.5 L Urine Glucose (UA) Urine Ketones 07/26/18 07/26/18 16:00 18:36 RBC Hgb Hct RDW VBG pH Sodium Chloride Carbon Dioxide Glucose Calcium AST ALT Alkaline Phosphatase NT-Pro-B Natriuret Pep 2130 H Total Protein Albumin Urine Glucose (UA) >=500 H Urine Ketones TRACE H Discharge - Discharge Clinical Impression: Hyperglycemia, Hyponatremia CHF (congestive heart failure) Qualifiers: Heart failure type: unspecified Heart failure chronicity: unspecified Qualified Code(s): I50.9 - Heart failure, unspecified Condition: Good Disposition: ADMITTED INPATIENT Admitting Provider: Mayito (Hospitalist) Unit Admitted: Telemetry
[2018-07-26] MEDS ORDERED: INSULIN REG, HUMAN 100 UNIT/ML 3 ML VIAL (PYX) IV ONE ×2 (18:29→18:47)
[2018-07-26] MEDS ORDERED: DEXTROSE 40% GEL 15 GM TUBE PO PRN ×2 (18:30)
[2018-07-26] MEDS ORDERED: GLUCAGON,HUMAN RECOMB 1 MG INJ IM PRN (18:30)
[2018-07-26] MEDS ORDERED: DEXTROSE 50%-WATER 25 GM/50 ML DISP.SYRIN IV PRN ×2 (18:30)
[2018-07-26 18:43] LABS: APPEARANCE,URINE CLEAR; BILIRUBIN,URINE NEGATIVE (NEGATIVE); COLOR,URINE STRAW; GLUCOSE, URINE >=500 mg/dL (NEGATIVE); KETONES,URINE TRACE mg/dL (NEGATIVE); LEUKOCYTE ESTERASE,URINE NEGATIVE (NEGATIVE); NITRITE,URINE NEGATIVE (NEGATIVE); PROTEIN,URINE NEGATIVE (NEGATIVE); URINE SPECIFIC GRAVITY 1.022; UROBILINOGEN,URINE NEGATIVE mg/dL (<2.0)
[2018-07-26] MEDS ORDERED: INSULIN NPH (ISOPHANE), HUMAN 100 UNIT/ML 3 ML SUBCUT ONE (18:48)
[2018-07-26] MEDS ORDERED: NORMAL SALINE 1000 ML 1,000 ML IV ONE (18:53)
[2018-07-26] MEDS ORDERED: FUROSEMIDE INJ/PF 20 MG/2 ML SDV IV ONE (18:53)
[2018-07-26] MEDS ORDERED: METFORMIN HCL 500 MG TABLET PO ONE (18:53)
--- NOTE | 2018-07-26 19:26 | RADIOLOGY REPORT (SQ) ---
EXAM DESCRIPTION: CHEST SINGLE VIEW COMPLETED DATE/TIME: 07/26/2018 7:08 pm REASON FOR STUDY: sob COMPARISON: 07/15/2018 EXAM PARAMETERS: NUMBER OF VIEWS: One view. TECHNIQUE: Single frontal radiographic view of the chest acquired. RADIATION DOSE: NA LIMITATIONS: None. FINDINGS: LUNGS AND PLEURA: No opacities, masses or pneumothorax. Stable blunting of the right cost ophrenic angle. MEDIASTINUM AND HILAR STRUCTURES: No masses. Contour normal. HEART AND VASCULAR STRUCTURES: Heart normal in size. Normal vasculature. BONES: No acute findings. HARDWARE: None in the chest. OTHER: No other significant finding. IMPRESSION: No evidence of acute cardiopulmonary abnormality. Stable, persistent small right-sided pleural effusion. TECHNICAL DOCUMENTATION: JOB ID: [id number] [employer]- All Rights Reserved Reading location - IP/workstation name: [email or web address]
[2018-07-26] MEDS ORDERED: HYDRALAZINE HCL INJ/PF 20 MG/1 ML SDV IV PRN (20:41)
[2018-07-26] MEDS ORDERED: IPRATROPIUM/ALBUTEROL 0.5-2.5 MG/3 ML AMPUL NEB PRN (20:46)
[2018-07-26] MEDS ORDERED: MAG HYDROX/AL HYDROX/SIMETH SUSP 30 ML UDCUP PO PRN (20:46)
[2018-07-26] MEDS ORDERED: MAGNESIUM HYDROXIDE SUSP 30 ML UDCUP PO PRN (20:46)
[2018-07-26] MEDS ORDERED: 1/2 NORMAL SALINE 1,000 ML IV SCH (21:00)
[2018-07-26 21:24] LABS: ABSOLUTE RETICS # 0.041 10^6/uL (0.028-0.122); RETICULOCYTE COUNT (AUTO) 1.48 % (0.66-2.85)
[2018-07-26] MEDS ORDERED: FOLIC ACID/VITAMIN B COMP W-C CAPSULE PO SCH (21:30)
[2018-07-26] MEDS ORDERED: ENALAPRILAT DIHYDRATE INJ/PF 2.5 MG/2 ML SDV IV ONE (21:30)
[2018-07-26] MEDS ORDERED: MORPHINE SULFATE 10 MG/ML INJ IV ONE (21:36)
[2018-07-26 21:40] LABS: URINE AMPHETAMINES SCREEN NEGATIVE; URINE BARBITURATES SCREEN NEGATIVE; URINE BENZODIAZEPINES SCREEN UNCONFIRMED POSITIVE; URINE COCAINE SCREEN UNCONFIRMED POSITIVE; URINE MARIJUANA (THC) SCREEN NEGATIVE; URINE METHADONE SCREEN NEGATIVE; URINE PHENCYCLIDINE SCREEN NEGATIVE
[2018-07-26 21:48] LABS: IRON(TIBC) 44.6 ug/dL (49-181)
[2018-07-26] MEDS ORDERED: KETOROLAC TROMETHAMINE INJ/PF 30 MG/1 ML SDV IV PRN (22:11)
[2018-07-26] MEDS ORDERED: HYDROMORPHONE HCL INJ/PF 2 MG/ML AMPULE SUBCUT PRN (22:12)
[2018-07-26] MEDS ORDERED: 1/2 NORMAL SALINE 1,000 ML IV PRN (22:30)
[2018-07-26 22:51] LABS: FOLATE 8.81 ng/mL (>2.76)
[2018-07-26 23:03] LABS: PHOSPHORUS 3.8 mg/dL (2.5-4.5)
[2018-07-26 23:27] LABS: INTERNATIONAL RATION (INR) 0.82; PROTHROMBIN TIME 11.7 SEC (11.4-15.4)
[2018-07-27] MEDS: HUM INSULIN NPH/REG INSULIN HM 100 UNIT/1 ML 3 ML SUBCUT SCH ×2 (00:50→09:56)
[2018-07-27] MEDS: HEPARIN SOD (PORCINE) 5,000 UNIT/ML 1 ML SYRINGE SUBCUT SCH ×3 (00:53→13:51)
[2018-07-27] MEDS: GABAPENTIN 300 MG CAPSULE PO SCH ×3 (00:56→12:07)
[2018-07-27] MEDS: THIAMINE HCL 100 MG TABLET PO SCH ×2 (00:57→09:58)
[2018-07-27] MEDS: NICOTINE 14 MG/24 HR PATCH.TD24 TD SCH ×2 (00:58→09:58)
[2018-07-27] MEDS ORDERED: ENALAPRILAT DIHYDRATE INJ/PF 2.5 MG/2 ML SDV IV ONE (01:25)
[2018-07-27] MEDS ORDERED: INSULIN REG, HUMAN 100 UNIT/ML 3 ML VIAL (PYX) ONE (02:02)
--- NOTE | 2018-07-27 04:18 | PDOC H&P ---
History of Present Illness Admission Date/PCP: 07/26/18 20:47 RY CHATTERJEE MD Patient complains of: Leg swelling History of Present Illness: AMPARO PHAN is a 52 year old male with a past medical history of cocaine abuse, insulin-dependent diabetes, diastolic heart failure and hypertension just discharged 6 days ago following diabetic ketoacidosis. Patient presents with complaints of leg pain and swelling he is found to have uncontrolled blood pressure of 200/100, cocaine positive urine drug screen, hyperglycemia greater than 600 hyponatremia, anemia, hypoalbuminemia and elevated LFTs. Evaluation of pending labs at discharge reveal hepatitis C positive. Patient is seen in the emergency room with a [place] affect demanding pain medications prior to treatment and changing of his bed. He receives insulin and is referred to the hospitalist for admission Past Medical History Cardiac Medical History: Reports: Congestive Heart Failure - Diastolic, Hypertension Pulmonary Medical History: Denies: Asthma, Chronic Obstructive Pulmonary Disease (COPD), Respiratory Failure Neurological Medical History: Denies: Seizures Endocrine Medical History: Reports: Diabetes Mellitus Type 2 Denies: Diabetes Mellitus Type 1, Hyperthyroidism, Hypothyroidism GI Medical History: Denies: Cirrhosis, Crohn's Disease, Gastroesophageal Reflux Disease, Hepatitis, Ulcerative Colitis Musculoskeltal Medical History: Denies: Arthritis, Fibromyalgia, Gout Skin Medical History: Denies: Eczema, Psoriasis Psychiatric Medical History: Reports: Substance Abuse, Tobacco Dependency Denies: Depression Hematology: Denies: Anemia, Bleeding Tendencies Infectious Medical History: Reports: Hepatitis C Past Surgical History Past Surgical History: Reports: Other - Denies any recent surgery Social History Information Source: Patient, [facility] Records Smoking Status: Current Every Day Smoker Frequency of Alcohol Use: None - History of heavy alcohol abuse/use in the past but no current history of abuse or use. Hx Recreational Drug Use: Yes Drugs: Cocaine Hx Prescription Drug Abuse: No - Advance Directive Resuscitation Status: Full Code Family History Family History: DM, Hypertension Parental Family History Reviewed: Yes Children Family History Reviewed: Yes Sibling(s) Family History Reviewed.: Yes Medication/Allergy Home Medications: Aspirin [Adult Low Dose Aspirin EC] 81 mg PO DAILY 07/13/18 Gabapentin [Neurontin 300 mg Capsule] 300 mg PO Q6 07/13/18 Insulin Aspart Prot/Insuln Asp [Novolog Mix 70-30 Flexpen Syrn] 30 units SQ QPM 07/13/18 Insulin Aspart Prot/Insuln Asp [Novolog Mix 70-30 Flexpen Syrn] 40 units SQ QAM 07/13/18 Losartan Potassium [Cozaar 100 mg Tablet] 200 mg PO DAILY 07/13/18 Multivitamin [Multiple Vitamins] 1 tab PO DAILY 07/13/18 Allergies/Adverse Reactions: No Known Allergies Allergy (Verified 06/08/17 20:19) Review of Systems ROS unobtainable: Due to mental status - Patient answers affirmatively to all questions and felt an unreliable historian Physical Exam Vital Signs: Temp Pulse Resp BP Pulse Ox 11 L 105/70 99 07/27/18 03:31 07/27/18 03:31 07/27/18 03:31 Intake & Output 07/25/18 07/26/18 07/27/18 11:59 11:59 11:59 Intake Total 1000 Balance 1000 Weight 53.977 kg General appearance: PRESENT: mild distress, thin, other - Cachectic, appears much older than stated age. ABSENT: well-nourished Head exam: PRESENT: atraumatic, normocephalic Eye exam: PRESENT: conjunctiva pink, EOMI, PERRLA. ABSENT: scleral icterus Ear exam: PRESENT: normal external ear exam Mouth exam: PRESENT: moist, tongue midline Neck exam: ABSENT: carotid bruit, JVD, lymphadenopathy, thyromegaly Respiratory exam: PRESENT: clear to auscultation baldemar. ABSENT: rales, rhonchi, wheezes Cardiovascular exam: PRESENT: RRR. ABSENT: diastolic murmur, rubs, systolic murmur Pulses: PRESENT: normal dorsalis pedis pul Vascular exam: PRESENT: normal capillary refill GI/Abdominal exam: PRESENT: normal bowel sounds, soft. ABSENT: distended, guarding, mass, organolmegaly, rebound, tenderness Rectal exam: PRESENT: deferred Extremities exam: PRESENT: full ROM. ABSENT: calf tenderness, clubbing, pedal edema Musculoskeletal exam: PRESENT: other - Global muscular atrophy Neurological exam: PRESENT: alert, awake, oriented to person, oriented to place, oriented to time, oriented to situation, CN II-XII grossly intact. ABSENT: motor sensory deficit Psychiatric exam: PRESENT: unusual affect Skin exam: PRESENT: dry, erythema - Numerous ulcers of all 4 extremities of various stages of healing without purulent exudate., warm. ABSENT: cyanosis, rash Results Laboratory Results: 07/26/18 16:00 07/26/18 16:00 07/26/18 07/26/18 07/26/18 16:00 16:00 16:00 WBC 5.0 RBC 2.74 L Hgb 9.0 L Hct 26.0 L MCV 95 MCH 32.7 MCHC 34.5 RDW 15.0 H Plt Count 307 Seg Neutrophils % 73.4 Lymphocytes % 13.2 Monocytes % 10.7 Eosinophils % 0.7 Basophils % 2.0 Absolute Neutrophils 3.7 Absolute Lymphocytes 0.7 Absolute Monocytes 0.5 Absolute Eosinophils 0.0 Absolute Basophils 0.1 Retic Count (auto) Absolute Retic VBG pH VBG pCO2 VBG HCO3 VBG Base Excess Sodium 129.9 L Potassium 4.6 Chloride 94 L Carbon Dioxide 31 H Anion Gap 5 BUN 17 Creatinine 0.55 Est GFR ( Amer) > 60 Est GFR (Non-Af Amer) > 60 Glucose 612 H* Lactic Acid 0.8 Calcium 8.2 L Phosphorus Magnesium Iron TIBC % Saturation Ferritin Total Bilirubin 0.5 AST 154 H ALT 162 H Alkaline Phosphatase 342 H Total Protein 5.2 L Albumin 2.5 L Vitamin B12 Folate TSH Urine Color Urine Appearance Urine pH Ur Specific [place] Urine Protein Urine Glucose (UA) Urine Ketones Urine Blood Urine Nitrite Ur Leukocyte Esterase Urine WBC (Auto) Urine RBC (Auto) 07/26/18 07/26/18 07/26/18 16:00 16:00 16:00 WBC RBC Hgb Hct MCV MCH MCHC RDW Plt Count Seg Neutrophils % Lymphocytes % Monocytes % Eosinophils % Basophils % Absolute Neutrophils Absolute Lymphocytes Absolute Monocytes Absolute Eosinophils Absolute Basophils Retic Count (auto) Absolute Retic VBG pH 7.43 H VBG pCO2 38.8 VBG HCO3 25.2 VBG Base Excess 0.9 Sodium Potassium Chloride Carbon Dioxide Anion Gap BUN Creatinine Est GFR ( Amer) Est GFR (Non-Af Amer) Glucose Lactic Acid Calcium Phosphorus 3.8 Magnesium 1.8 Iron TIBC % Saturation Ferritin Total Bilirubin AST ALT Alkaline Phosphatase Total Protein Albumin Vitamin B12 Folate TSH 0.99 Urine Color Urine Appearance Urine pH Ur Specific [place] Urine Protein Urine Glucose (UA) Urine Ketones Urine Blood Urine Nitrite Ur Leukocyte Esterase Urine WBC (Auto) Urine RBC (Auto) 07/26/18 07/26/18 07/26/18 16:00 16:00 18:36 WBC RBC Hgb Hct MCV MCH MCHC RDW Plt Count Seg Neutrophils % Lymphocytes % Monocytes % Eosinophils % Basophils % Absolute Neutrophils Absolute Lymphocytes Absolute Monocytes Absolute Eosinophils Absolute Basophils Retic Count (auto) 1.48 Absolute Retic 0.041 VBG pH VBG pCO2 VBG HCO3 VBG Base Excess Sodium Potassium Chloride Carbon Dioxide Anion Gap BUN Creatinine Est GFR ( Amer) Est GFR (Non-Af Amer) Glucose Lactic Acid Calcium Phosphorus Magnesium Iron 44.6 L TIBC 242 L % Saturation 18 Ferritin 301.00 Total Bilirubin AST ALT Alkaline Phosphatase Total Protein Albumin Vitamin B12 761.0 Folate 8.81 TSH Urine Color STRAW Urine Appearance CLEAR Urine pH 6.0 Ur Specific [place] 1.022 Urine Protein NEGATIVE Urine Glucose (UA) >=500 H Urine Ketones TRACE H Urine Blood NEGATIVE Urine Nitrite NEGATIVE Ur Leukocyte Esterase NEGATIVE Urine WBC (Auto) 1 Urine RBC (Auto) 0 07/26/18 16:00 NT-Pro-B Natriuret Pep 2130 H Impressions: Chest X-Ray 07/26/18 18:28 IMPRESSION: No evidence of acute cardiopulmonary abnormality. Stable, persistent small right-sided pleural effusion. Assessment and Plan - Diagnosis (1) Hypertensive urgency Is this a current diagnosis for this admission?: Yes Plan: Amlodipine and hydralazine ordered complicated by cocaine abuse (2) Diabetes Is this a current diagnosis for this admission?: Yes Plan: Complicated by noncompliance with insulin, lifestyle and polysubstance abuse. IV fluids and insulin ordered (3) Hepatitis C Is this a current diagnosis for this admission?: Yes Plan: Active chronic hepatitis, suspected significant component of cryoglobulinemia with widespread cutaneous ulcers. Follow-up GI consult (4) Neuropathy Is this a current diagnosis for this admission?: Yes Plan: Multifactorial secondary to alcoholism, chronic uncontrolled diabetes, cryoglobulinemia of hepatitis C. Thiamine, evaluate B12 and supportive measures (5) Hyponatremia Is this a current diagnosis for this admission?: Yes Plan: Appears most likely pseudohyponatremia secondary to uncontrolled hyperglycemia. Follow-up chemistry (6) Abnormal liver function test Is this a current diagnosis for this admission?: Yes Plan: Likely secondary to chronic active hepatitis C. Follow-up GI consult (7) Tobacco abuse Is this a current diagnosis for this admission?: Yes Plan: Tobacco Dependence patient received tobacco cessation counseling and offered nicotine replacement options (8) Cocaine abuse Is this a current diagnosis for this admission?: Yes Plan: Supportive care, avoid beta-blockers, clonidine and consider benzodiazepine - Time Time Spent with patient: 35 or more minutes - Inpatient Certification Medical Necessity: Need Close Monitoring Due to Risk of Patient Decompensation
[2018-07-27 07:13] LABS: HEMATOCRIT 24.7 % (37.9-51.0); HEMOGLOBIN 8.7 g/dL (13.5-17.0); MEAN CORPUSCULAR HEMOGLOBIN 32.6 pg (27.0-33.4); MEAN CORPUSCULAR HGB CONC 35.2 g/dL (32.0-36.0); MEAN CORPUSCULAR VOLUME 93 fl (80-97); PLATELET COUNT 256 10^3/uL (150-450); RED BLOOD COUNT 2.66 10^6/uL (4.35-5.55); RED CELL DISTRIBUTION WIDTH 15.2 % (11.5-14.0); WHITE BLOOD COUNT 4.2 10^3/uL (4.0-10.5)
[2018-07-27 07:44] LABS: ABSOLUTE LYMPHOCYTES# (MANUAL) 1.1 10^3/uL (0.5-4.7); ABSOLUTE MONOCYTES # (MANUAL) 0.5 10^3/uL (0.1-1.4); BASOPHILS % (MANUAL) 2 % (0-2); EOSINOPHILS % (MANUAL) 0 % (0-6); LYMPHOCYTES % (MANUAL) 26 % (13-45); MONOCYTES % (MANUAL) 11 % (3-13); SEGMENTED NEUTROPHILS % (MAN) 61 % (42-78); TOTAL CELLS COUNTED 100
[2018-07-27 07:45] LABS: PLATELET COMMENT ADEQUATE; RBC MORPHOLOGY COMMENT NORMO-CYTIC/CHROMIC
--- NOTE | 2018-07-27 07:48 | EKG REPORT ---
SEVERITY:- ABNORMAL ECG - SINUS RHYTHM LEFT VENTRICULAR HYPERTROPHY : Confirmed by: Dannielle Joshi MD 27-Jul-2018 07:47:39
--- NOTE | 2018-07-27 08:09 | PDOC CONSULTATION ---
Consultation Consult Date: 07/27/18 Provider Consulted: MICHELLE BOOGIE Consult reason:: hep C History of Present Illness Admission Date/PCP: 07/26/18 20:47 RY CHATTERJEE MD History of Present Illness: AMPARO PHAN is a 52 year old male patient has been admitted noted to have Hep C, likely complicated by cryoglobulinemia DKA patient has a positive drug screen for cocaine asked to provide input with regards to management of Hep C Past Medical History Cardiac Medical History: Reports: Congestive Heart Failure - Diastolic, Hypertension Pulmonary Medical History: Denies: Asthma, Chronic Obstructive Pulmonary Disease (COPD), Respiratory Failure Neurological Medical History: Denies: Seizures Endocrine Medical History: Reports: Diabetes Mellitus Type 2 Denies: Diabetes Mellitus Type 1, Hyperthyroidism, Hypothyroidism GI Medical History: Denies: Cirrhosis, Crohn's Disease, Gastroesophageal Reflux Disease, Hepatitis, Ulcerative Colitis Musculoskeltal Medical History: Denies: Arthritis, Fibromyalgia, Gout Skin Medical History: Denies: Eczema, Psoriasis Psychiatric Medical History: Reports: Substance Abuse, Tobacco Dependency Denies: Depression Hematology: Denies: Anemia, Bleeding Tendencies Infectious Medical History: Reports: Hepatitis C Past Surgical History Past Surgical History: Reports: Other - Denies any recent surgery Social History Smoking Status: Current Every Day Smoker Frequency of Alcohol Use: None - History of heavy alcohol abuse/use in the past but no current history of abuse or use. Hx Recreational Drug Use: Yes Drugs: Cocaine Hx Prescription Drug Abuse: No - Advance Directive Resuscitation Status: Full Code Family History Family History: DM, Hypertension Parental Family History Reviewed: Yes Children Family History Reviewed: Unknown Sibling(s) Family History Reviewed.: Unknown Medication/Allergy Home Medications: Aspirin [Adult Low Dose Aspirin EC] 81 mg PO DAILY 07/13/18 Gabapentin [Neurontin 300 mg Capsule] 300 mg PO Q6 07/13/18 Insulin Aspart Prot/Insuln Asp [Novolog Mix 70-30 Flexpen Syrn] 30 units SQ QPM 07/13/18 Insulin Aspart Prot/Insuln Asp [Novolog Mix 70-30 Flexpen Syrn] 40 units SQ QAM 07/13/18 Losartan Potassium [Cozaar 100 mg Tablet] 200 mg PO DAILY 07/13/18 Multivitamin [Multiple Vitamins] 1 tab PO DAILY 07/13/18 Allergies/Adverse Reactions: No Known Allergies Allergy (Verified 06/08/17 20:19) Review of Systems Constitutional: ABSENT: fever(s), headache(s) Eyes: ABSENT: visual disturbances Ears: ABSENT: hearing changes Nose, Mouth, and Throat: ABSENT: mouth pain, sore throat Cardiovascular: ABSENT: edema, orthropnea Respiratory: PRESENT: dyspnea. ABSENT: hemoptysis Gastrointestinal: ABSENT: hematemesis, hematochezia, nausea, vomiting Genitourinary: ABSENT: dysuria, hematuria Musculoskeletal: PRESENT: joint swelling Integumentary: PRESENT: lesions, wounds Neurological: ABSENT: syncope, tingling, tremor(s), vertigo Endocrine: ABSENT: polydipsia, polyphagia, polyuria Hematologic/Lymphatic: PRESENT: easy bruising Physical Exam Vital Signs: Temp Pulse Resp BP Pulse Ox 11 L 105/70 99 07/27/18 03:31 07/27/18 03:31 07/27/18 03:31 Intake & Output 07/26/18 07/27/18 07/28/18 06:59 06:59 06:59 Intake Total 1240 Output Total 5000 Balance -3760 Weight 53.5 kg General appearance: PRESENT: mild distress, well-developed, well-nourished Head exam: PRESENT: atraumatic, normocephalic Eye exam: PRESENT: EOMI, PERRLA. ABSENT: nystagmus, periorbital swelling Mouth exam: PRESENT: moist, neck supple Throat exam: ABSENT: tonsillar exudate, tonsillogmegaly Neck exam: ABSENT: meningismus, tenderness, thyromegaly Respiratory exam: PRESENT: symmetrical, unlabored. ABSENT: tachypnea, wheezes Cardiovascular exam: PRESENT: +S1, +S2 GI/Abdominal exam: PRESENT: soft. ABSENT: rebound, rigid, tenderness Extremities exam: PRESENT: joint swelling. ABSENT: pedal edema Musculoskeletal exam: PRESENT: full ROM Neurological exam: PRESENT: oriented to time, oriented to situation, CN II-XII grossly intact Focused psych exam: ABSENT: restlessness Skin exam: PRESENT: normal color. ABSENT: mottled, urticaria, vesicles Results Laboratory Results: 07/27/18 06:43 07/26/18 07/26/18 07/26/18 16:00 16:00 16:00 WBC 5.0 RBC 2.74 L Hgb 9.0 L Hct 26.0 L MCV 95 MCH 32.7 MCHC 34.5 RDW 15.0 H Plt Count 307 Seg Neutrophils % 73.4 Lymphocytes % 13.2 Monocytes % 10.7 Eosinophils % 0.7 Basophils % 2.0 Absolute Neutrophils 3.7 Absolute Lymphocytes 0.7 Absolute Monocytes 0.5 Absolute Eosinophils 0.0 Absolute Basophils 0.1 Retic Count (auto) Absolute Retic VBG pH VBG pCO2 VBG HCO3 VBG Base Excess Sodium 129.9 L Potassium 4.6 Chloride 94 L Carbon Dioxide 31 H Anion Gap 5 BUN 17 Creatinine 0.55 Est GFR ( Amer) > 60 Est GFR (Non-Af Amer) > 60 Glucose 612 H* Lactic Acid 0.8 Calcium 8.2 L Phosphorus Magnesium Iron TIBC % Saturation Ferritin Total Bilirubin 0.5 AST 154 H ALT 162 H Alkaline Phosphatase 342 H Total Protein 5.2 L Albumin 2.5 L Vitamin B12 Folate TSH Urine Color Urine Appearance Urine pH Ur Specific [place] Urine Protein Urine Glucose (UA) Urine Ketones Urine Blood Urine Nitrite Ur Leukocyte Esterase Urine WBC (Auto) Urine RBC (Auto) 07/26/18 07/26/18 07/26/18 16:00 16:00 16:00 WBC RBC Hgb Hct MCV MCH MCHC RDW Plt Count Seg Neutrophils % Lymphocytes % Monocytes % Eosinophils % Basophils % Absolute Neutrophils Absolute Lymphocytes Absolute Monocytes Absolute Eosinophils Absolute Basophils Retic Count (auto) Absolute Retic VBG pH 7.43 H VBG pCO2 38.8 VBG HCO3 25.2 VBG Base Excess 0.9 Sodium Potassium Chloride Carbon Dioxide Anion Gap BUN Creatinine Est GFR ( Amer) Est GFR (Non-Af Amer) Glucose Lactic Acid Calcium Phosphorus 3.8 Magnesium 1.8 Iron TIBC % Saturation Ferritin Total Bilirubin AST ALT Alkaline Phosphatase Total Protein Albumin Vitamin B12 Folate TSH 0.99 Urine Color Urine Appearance Urine pH Ur Specific [place] Urine Protein Urine Glucose (UA) Urine Ketones Urine Blood Urine Nitrite Ur Leukocyte Esterase Urine WBC (Auto) Urine RBC (Auto) 07/26/18 07/26/18 07/26/18 16:00 16:00 18:36 WBC RBC Hgb Hct MCV MCH MCHC RDW Plt Count Seg Neutrophils % Lymphocytes % Monocytes % Eosinophils % Basophils % Absolute Neutrophils Absolute Lymphocytes Absolute Monocytes Absolute Eosinophils Absolute Basophils Retic Count (auto) 1.48 Absolute Retic 0.041 VBG pH VBG pCO2 VBG HCO3 VBG Base Excess Sodium Potassium Chloride Carbon Dioxide Anion Gap BUN Creatinine Est GFR ( Amer) Est GFR (Non-Af Amer) Glucose Lactic Acid Calcium Phosphorus Magnesium Iron 44.6 L TIBC 242 L % Saturation 18 Ferritin 301.00 Total Bilirubin AST ALT Alkaline Phosphatase Total Protein Albumin Vitamin B12 761.0 Folate 8.81 TSH Urine Color STRAW Urine Appearance CLEAR Urine pH 6.0 Ur Specific [place] 1.022 Urine Protein NEGATIVE Urine Glucose (UA) >=500 H Urine Ketones TRACE H Urine Blood NEGATIVE Urine Nitrite NEGATIVE Ur Leukocyte Esterase NEGATIVE Urine WBC (Auto) 1 Urine RBC (Auto) 0 07/27/18 06:43 WBC 4.2 RBC 2.66 L Hgb 8.7 L Hct 24.7 L MCV 93 MCH 32.6 MCHC 35.2 RDW 15.2 H Plt Count 256 Seg Neutrophils % Not Reportable Lymphocytes % Not Reportable Monocytes % Not Reportable Eosinophils % Not Reportable Basophils % Not Reportable Absolute Neutrophils Not Reportable Absolute Lymphocytes Not Reportable Absolute Monocytes Not Reportable Absolute Eosinophils Not Reportable Absolute Basophils Not Reportable Retic Count (auto) Absolute Retic VBG pH VBG pCO2 VBG HCO3 VBG Base Excess Sodium Potassium Chloride Carbon Dioxide Anion Gap BUN Creatinine Est GFR ( Amer) Est GFR (Non-Af Amer) Glucose Lactic Acid Calcium Phosphorus Magnesium Iron TIBC % Saturation Ferritin Total Bilirubin AST ALT Alkaline Phosphatase Total Protein Albumin Vitamin B12 Folate TSH Urine Color Urine Appearance Urine pH Ur Specific [place] Urine Protein Urine Glucose (UA) Urine Ketones Urine Blood Urine Nitrite Ur Leukocyte Esterase Urine WBC (Auto) Urine RBC (Auto) 07/26/18 16:00 NT-Pro-B Natriuret Pep 2130 H Impressions: Chest X-Ray 07/26/18 18:28 IMPRESSION: No evidence of acute cardiopulmonary abnormality. Stable, persistent small right-sided pleural effusion. Assessment & Plan - Diagnosis (1) Hepatitis C Is this a current diagnosis for this admission?: Yes Plan: complicated by extrahepatic manifestations of hep C this includes hematologic and rheumatologic issues however he has a positive drug screen and is not a candidate for Hep C treatment need at least a 6 month, objective documentation of being drug and ETOH free prior to institution of treatment management of DKA per hospitalist team - Time Time Spent: 50 to 70 Minutes
[2018-07-27 08:26] LABS: ANION GAP 5 (5-19); BLOOD UREA NITROGEN 16 mg/dL (7-20); CALCIUM 8.6 mg/dL (8.4-10.2); CARBON DIOXIDE 37 mmol/L (22-30); CHLORIDE 95 mmol/L (98-107); GLUCOSE 132 mg/dL (75-110); SODIUM 136.5 mmol/L (137-145)
[2018-07-27] MEDS: INSULIN LISPRO 100 UNIT/ML 3 ML VIAL SUBCUT SCH ×2 (08:48→11:24)
[2018-07-27] MEDS ORDERED: POTASSIUM CHLORIDE 10 MEQ CAPSULE.ER PO ONE ×2 (09:30→12:30)
[2018-07-27] MEDS ORDERED: LOSARTAN POTASSIUM 50 MG TABLET PO SCH (10:00)
[2018-07-27] MEDS ORDERED: ASPIRIN 81 MG TABLET, ENT COATED PO SCH (10:00)
[2018-07-27] MEDS ORDERED: DOCUSATE SODIUM 100 MG CAPSULE PO SCH (10:00)
[2018-07-27] MEDS ORDERED: MULTIVITAMIN TABLET PO SCH (10:00)
[2018-07-27] MEDS ORDERED: SPIRONOLACTONE 25 MG TABLET PO SCH (10:30)
[2018-07-27 13:40] LABS: ABSOLUTE BASOPHILS # (AUTO) 0.1 10^3/uL (0.0-0.2); ABSOLUTE EOSINOPHILS # (AUTO) 0.1 10^3/uL (0.0-0.6); ABSOLUTE LYMPHOCYTES (AUTO) 1.1 10^3/uL (0.5-4.7); ABSOLUTE MONOCYTES (AUTO) 0.6 10^3/uL (0.1-1.4); ABSOLUTE NEUT (AUTO) 3.8 10^3/uL (1.7-8.2); BASOPHILS % (AUTO) 1.8 % (0-2); EOSINOPHILS % (AUTO) 1.5 % (0-6); HEMATOCRIT 30.7 % (37.9-51.0); HEMOGLOBIN 10.3 g/dL (13.5-17.0); LYMPHOCYTES % (AUTO) 20.1 % (13-45); MEAN CORPUSCULAR HEMOGLOBIN 31.8 pg (27.0-33.4); MEAN CORPUSCULAR HGB CONC 33.7 g/dL (32.0-36.0); MEAN CORPUSCULAR VOLUME 94 fl (80-97); MONOCYTES % (AUTO) 10.5 % (3-13); PLATELET COUNT 272 10^3/uL (150-450); RED BLOOD COUNT 3.26 10^6/uL (4.35-5.55); RED CELL DISTRIBUTION WIDTH 15.1 % (11.5-14.0); SEGMENTED NEUTROPHILS % (AUTO) 66.1 % (42-78); TOTAL CELLS COUNTED % (AUTO) 100 %; WHITE BLOOD COUNT 5.7 10^3/uL (4.0-10.5)
[2018-07-27 14:02] LABS: ANION GAP 8 (5-19); BLOOD UREA NITROGEN 15 mg/dL (7-20); CALCIUM 9.1 mg/dL (8.4-10.2); CARBON DIOXIDE 38 mmol/L (22-30); CHLORIDE 92 mmol/L (98-107); GLUCOSE 117 mg/dL (75-110); POTASSIUM 3.3 mmol/L (3.6-5.0); SODIUM 137.5 mmol/L (137-145)
[2018-07-27 14:55] VITALS: BP 148/88
[2018-07-28] MEDS ORDERED: FOLIC ACID 1 MG TABLET PO SCH (10:00)
[2018-07-28 12:37] LABS: HEPATITIS A AB IGM Negative (Negative); HEPATITIS B CORE AB IGM Negative (Negative); HEPATITS B SURFACE ANTIGEN Negative (Negative)
[2018-07-28 13:53] LABS: HEPATITIS C VIRUS ANTIBODY >11.0 s/co ratio (0.0-0.9)
--- NOTE | 2018-07-31 08:00 | PDOC DISCHARGE SUMMARY ---
General - Admit/Disc Date/PCP Admission Date/Primary Care Provider: 07/26/18 20:47 RY CHATTERJEE MD Discharge Date: 07/27/18 - Discharge Diagnosis (1) Diabetes Is this a current diagnosis for this admission?: Yes Summary: Complicated by noncompliance with insulin, lifestyle and polysubstance abuse. The patient was provided IV fluids and subcutaneous insulin. He did not require an insulin drip. Patient is now tolerating a cardiac and consistent carb diet with controlled blood sugar. He denies need for medication refills. He is discharged to home on his home dose 70/30 40 units every morning and 30 units every evening. 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 Gastroenterology was consulted. Per Dr. Mooney patient must have 6 months of objective documentation of being drug and EtOH free prior to initiating treatment for hepatitis C. No other recommendations were provided at this time. Patient is advised to follow-up with his primary care provider within 1 week of discharge. He is informed that his PCP can make appropriate referral to gastroenterology for treatment once he is drug and alcohol free. (3) Hypertensive urgency Is this a current diagnosis for this admission?: Yes Summary: Resolved. Uncontrolled essential hypertension complicated by tobacco and cocaine abuse. Blood pressure control was achieved with IV hydralazine and resumption of his home dose losartan. Patient is again educated on discontinuing tobacco, alcohol, and recreational drug use. He is advised to eat a low-sodium diet. He is instructed to resume his outpatient medication regiment. (4) Hyponatremia Is this a current diagnosis for this admission?: Yes Summary: Resolved. Pseudohyponatremia secondary to uncontrolled hyperglycemia. (5) Neuropathy Is this a current diagnosis for this admission?: Yes Summary: Multifactorial secondary to alcoholism, chronic uncontrolled diabetes, cryoglobulinemia, and hepatitis C. B12 Level is normal at 761. Patient was able to ambulate in the hallway without difficulty; now requesting discharge home. Patient is advised to increase Glucose control. He is advised to stop drinking. He is discharged home with a prescription for thiamine. He is also advised to continue his home dose multivitamin and folic acid supp lementation. Continue home dose gabapentin. (6) Tobacco abuse Is this a current diagnosis for this admission?: Yes Summary: Smoking cessation strongly encouraged. He was provided a NicoDerm patch while in-house; patient requested the patch be removed at discharge as he intends to go home to smoke. (7) Cocaine abuse Is this a current diagnosis for this admission?: Yes Summary: The patient is educated on the importance of discontinuing cocaine use and other illicit substances. Offered discharge planning or mental health consultation to assist patient in finding community resources; patient declined. (8) Abnormal liver function test Is this a current diagnosis for this admission?: Yes Summary: Likely secondary to chronic active hepatitis C and EtOH abuse. Evaluation and management as above. - Additional Information Resuscitation Status: Full Code Discharge Diet: Cardiac, Diabetic Discharge Activity: Activity As Tolerated, Balance Activity w/Rest, Slowly Increase Activity Prescriptions: Folic Acid/Vitamin B Comp W-C [Nephrocaps Multiple Vitamin Capsule] 1 cap PO AC SUPPER #90 capsule Nicotine [Nicoderm 14 mg/24 Hr Transdermal Patch] 1 each TD DAILY #30 patch.[email or web address] Potassium Chloride 20 meq PO DAILY #7 tab.er.prt Spironolactone [Aldactone 25 mg Tablet] 25 mg PO DAILY #30 tablet Thiamine HCl [Thiamine 100 mg Tablet] 100 mg PO DAILY #90 tablet Home Medications: Aspirin [Adult Low Dose Aspirin EC] 81 mg PO DAILY 07/13/18 Gabapentin [Neurontin 300 mg Capsule] 300 mg PO Q6 07/13/18 Insulin Aspart Prot/Insuln Asp [Novolog Mix 70-30 Flexpen Syrn] 30 units SQ QPM 07/13/18 Insulin Aspart Prot/Insuln Asp [Novolog Mix 70-30 Flexpen Syrn] 40 units SQ QAM 07/13/18 Losartan Potassium [Cozaar 100 mg Tablet] 200 mg PO DAILY 07/13/18 Multivitamin [Multiple Vitamins] 1 tab PO DAILY 07/13/18 Docusate Sodium [Colace 100 mg Capsule] 100 mg PO BID capsule 07/27/18 Folic Acid/Vitamin B Comp W-C [Nephrocaps Multiple Vitamin Capsule] 1 cap PO ACSUPPER #90 capsule 07/27/18 Nicotine [Nicoderm 14 mg/24 Hr Transdermal Patch] 1 each TD DAILY #30 patch.td24 07/27/18 Potassium Chloride 20 meq PO DAILY #7 tab.er.prt 07/27/18 Spironolactone [Aldactone 25 mg Tablet] 25 mg PO DAILY #30 tablet 07/27/18 Thiamine HCl [Thiamine 100 mg Tablet] 100 mg PO DAILY #90 tablet 07/27/18 Doxycycline Hyclate 100 mg PO BID #14 capsule 07/29/18 Oxycodone HCl/Acetaminophen [Percocet 5-325 mg Tablet] 1 - 2 tab PO Q4H PRN #15 tablet 07/29/18 History of Present Illness History of Present Illness: Per H&P by Dr. Edmond: AMPARO PHAN is a 52 year old male with a past medical history of cocaine abuse, insulin-dependent diabetes, diastolic heart failure and hypertension just discharged 6 days ago following diabetic ketoacidosis. Patient presents with complaints of leg pain and swelling he is found to have uncontrolled blood pressure of 200/100, cocaine positive urine drug screen, hyperglycemia greater than 600 hyponatremia, anemia, hypoalbuminemia and elevated LFTs. Evaluation of pending labs at discharge reveal hepatitis C positive. Patient is seen in the emergency room with a [place] affect demanding pain medications prior to treatment and changing of his bed. He receives insulin and is referred to the hospitalist for admission Physical Exam Vital Signs: Temp Pulse Resp BP Pulse Ox 14 148/88 H 100 07/27/18 13:02 07/27/18 14:54 07/27/18 14:01 General appearance: PRESENT: no acute distress, well-developed, other - Cachectic Head exam: PRESENT: atraumatic, normocephalic Eye exam: PRESENT: conjunctiva pink, EOMI, PERRLA. ABSENT: scleral icterus Ear exam: PRESENT: normal external ear exam Mouth exam: PRESENT: moist, tongue midline Teeth exam: PRESENT: poor dentation Neck exam: ABSENT: carotid bruit, JVD, lymphadenopathy, thyromegaly Respiratory exam: PRESENT: clear to auscultation baldemar, symmetrical, unlabored. ABSENT: rales, rhonchi, wheezes Cardiovascular exam: PRESENT: RRR. ABSENT: diastolic murmur, rubs, systolic murmur Pulses: PRESENT: normal dorsalis pedis pul Vascular exam: PRESENT: normal capillary refill GI/Abdominal exam: PRESENT: normal bowel sounds, soft. ABSENT: distended, guarding, mass, organolmegaly, rebound, tenderness Rectal exam: PRESENT: deferred Extremities exam: PRESENT: full ROM. ABSENT: calf tenderness, clubbing, pedal edema Neurological exam: PRESENT: alert, awake, oriented to person, oriented to place, oriented to time, oriented to situation, CN II-XII grossly intact. ABSENT: motor sensory deficit Psychiatric exam: PRESENT: appropriate affect, normal mood. ABSENT: homicidal ideation, suicidal ideation Skin exam: PRESENT: dry, warm, other - Numerous ulcers of all 4 extremities of various stages of healing without surrounding erythema or purulent exudate. ABSENT: cyanosis, rash Results Laboratory Results: 07/27/18 13:25 07/27/18 13:25 07/26/18 16:00 NT-Pro-B Natriuret Pep 2130 H Impressions: Chest X-Ray 07/26/18 18:28 IMPRESSION: No evidence of acute cardiopulmonary abnormality. Stable, persistent small right-sided pleural effusion. Qualifiers - * PATIENT BEING DISCHARGED WITH ANY OF THE FOLLOWING DIAGNOSIS: No Acute Heart Failure - Is this a Heart Failure Patient?: No Plan Discharge Plan: Patient is discharged to home in the care of family members. He is already e stablished with home health nursing and physical therapy. Follow-up with primary care provider within 1 week. Low-sodium, consistent carb diet. Take medications as prescribed. Stop drinking alcohol; stop using recreational drugs. Return to the emergency department as needed for concerning symptoms. Time Spent: Greater than 30 Minutes
== END 2018-07-27 15:19 | disposition home health service (06) | DRG 74 ==
LOC: ER 15:45 → EH 20:47
PROVIDERS: ADMIT Internal Medicine; ATTEND Internal Medicine
DX: E11.40 Type 2 diabetes mellitus with diabetic neuropathy, unspecified (principal); R64 Cachexia; I50.30 Unspecified diastolic (congestive) heart failure; E87.1 Hypo-osmolality and hyponatremia; I11.0 Hypertensive heart disease with heart failure; E11.65 Type 2 diabetes mellitus with hyperglycemia; F19.10 Other psychoactive substance abuse, uncomplicated; B18.2 Chronic viral hepatitis C; I16.0 Hypertensive urgency; F17.200 Nicotine dependence, unspecified, uncomplicated; F14.10 Cocaine abuse, uncomplicated; E88.09 Other disorders of plasma-protein metabolism, not elsewhere classified; D64.9 Anemia, unspecified; Z91.14 Patient's other noncompliance with medication regimen; Z79.82 Long term (current) use of aspirin; Z79.4 Long term (current) use of insulin; Z83.3 Family history of diabetes mellitus; Z82.49 Family history of ischemic heart disease and other diseases of the circulatory system
CPT/HCPCS: 36415; 71045; 80048; 80053; 80074; 80307; 81001; 82140; 82607; 82728; 82746; 82803; 82962; 83540; 83550; 83605; 83735; 83880; 84100; 84443; 85025; 85045; 85610; 87040; 87086; 93005; 93010; 96374; 99285; J1644; J1815; J1940; J2270; J3490; J7030

== ENCOUNTER 2018-07-29 07:00 | Emergency (ER) | payer MEDICAID, OTHER ==
--- NOTE | 2018-07-29 08:35 | ER Document Report ---
ED Medical Screen (RME) - General Chief Complaint: Feet Swelling Stated Complaint: PAIN IN BOTH FEET Time Seen by Provider: 07/29/18 08:28 Primary Care Provider: RY CHATTERJEE MD [Primary Care Provider] - Follow up as needed Notes: Patient is a 52-year-old male with a history of type 1 diabetes, hypertension, diastolic heart failure, hep C who presents to the emergency department with a chief complaint of bilateral leg swelling. States he was recently discharged from the facility after being treated for the same type of symptoms. He says since being discharged he has had more ulcers and drainage coming from both of his lower extremities. Patient states the swelling has continued to get worse. Patient denies chest pain or shortness of breath. Patient states he is unable to walk due to the severe pain in his feet. She denies fever. Patient denies nausea vomiting or diarrhea. TRAVEL OUTSIDE OF THE [place] IN LAST 30 DAYS: No - Related Data Allergies/Adverse Reactions: No Known Allergies Allergy (Verified 06/08/17 20:19) Past Medical History - Past Medical History Cardiac Medical History: Reports: Hx Congestive Heart Failure - Diastolic, Hx Hypertension Pulmonary Medical History: Denies: Hx Asthma, Hx COPD, Hx Respiratory Failure Neurological Medical History: Denies: Hx Seizures Endocrine Medical History: Reports: Hx Diabetes Mellitus Type 2. Denies: Hx Diabetes Mellitus Type 1, Hx Hyperthyroidism, Hx Hypothyroidism Renal/ Medical History: Reports: Hx Renal Insufficiency. Denies: Hx Peritoneal Dialysis GI Medical History: Denies: Hx Cirrhosis, Hx Crohn's Disease, Hx Gastroesophageal Reflux Disease, Hx Hepatitis, Hx Ulcerative Colitis Musculoskeltal Medical History: Denies Hx Arthritis, Denies Hx Fibromyalgia, Denies Hx Gout Skin Medical History: Denies Hx Eczema, Denies Hx Psoriasis Psychiatric Medical History: Denies: Hx Depression Infectious Medical History: Denies: Hx Hepatitis Past Surgical History: Reports: Other - Denies any recent surgery - Immunizations History of Influenza Vaccine for 11/2016 - 04/2017 Season: No Physical Exam - Vital signs Vitals: Temp Pulse Resp BP Pulse Ox 98.5 F 88 14 163/84 H 99 07/29/18 07:12 07/29/18 07:12 07/29/18 07:12 07/29/18 07:12 07/29/18 07:12 Interpretation: Hypertensive - Extremities General lower extremity: Tender, Edema, Other - Open ulcerations noted to bilateral lower extremities, bilateral pitting edema, no erythema. Course - Re-evaluation Re-evalutation: 07/29/18 08:35 I have greeted and performed a rapid initial assessment of this patient. A comprehensive ED assessment and evaluation of the patient, analysis of test results and completion of the medical decision making process will be conducted by additional ED providers. - Vital Signs Vital signs: Temp Pulse Resp BP Pulse Ox 98.5 F 88 14 163/84 H 99 07/29/18 07:12 07/29/18 07:12 07/29/18 07:12 07/29/18 07:12 07/29/18 07:12 Doctor's Discharge - Discharge Referrals: RY CHATTERJEE MD [Primary Care Provider] - Follow up as needed
--- NOTE | 2018-07-29 09:08 | ER Document Report ---
ED General - General Chief Complaint: Feet Swelling Stated Complaint: PAIN IN BOTH FEET Time Seen by Provider: 07/29/18 08:28 Primary Care Provider: RY CHATTERJEE MD [Primary Care Provider] - Follow up as needed Notes: 52-year-old male with diabetes presents with bilateral leg pain and swelling with sores. Going on for about a week. No fever positive chills. No drainage from wounds. Has not been elevating his legs. TRAVEL OUTSIDE OF THE [place] IN LAST 30 DAYS: No - Related Data Allergies/Adverse Reactions: No Known Allergies Allergy (Verified 06/08/17 20:19) Past Medical History - Social History Smoking Status: Unknown if Ever Smoked Family History: DM, Hypertension - Past Medical History Cardiac Medical History: Reports: Hx Congestive Heart Failure - Diastolic, Hx Hypertension Pulmonary Medical History: Denies: Hx Asthma, Hx COPD, Hx Respiratory Failure Neurological Medical History: Denies: Hx Seizures Endocrine Medical History: Reports: Hx Diabetes Mellitus Type 2. Denies: Hx Diabetes Mellitus Type 1, Hx Hyperthyroidism, Hx Hypothyroidism Renal/ Medical History: Reports: Hx Renal Insufficiency. Denies: Hx Peritoneal Dialysis GI Medical History: Denies: Hx Cirrhosis, Hx Crohn's Disease, Hx Gastroesophageal Reflux Disease, Hx Hepatitis, Hx Ulcerative Colitis Musculoskeletal Medical History: Denies Hx Arthritis, Denies Hx Fibromyalgia, Denies Hx Gout Skin Medical History: Denies Hx Eczema, Denies Hx Psoriasis Psychiatric Medical History: Denies: Hx Depression Infectious Medical History: Denies: Hx Hepatitis Past Surgical History: Reports: Other - Denies any recent surgery Review of Systems - Review of Systems Notes: REVIEW OF SYSTEMS GEN: Denies fever, chills, weight loss ENT: Denies sore throat, nasal discharge, ear pain EYES: Denies blurry vision, eye pain, discharge CV: Denies chest pain, palpitations, edema RESP: Denies cough, shortness of breath, wheezing GI: Denies abdominal pain, nausea, vomiting, diarrhea MSK: Denies joint pain/swelling, edema, SKIN: Rash LYMPH: Denies swollen glands/lymph nodes NEURO: Denies headache, focal weakness or numbness, dizziness PSYCH: Denies depression, suicidal or homicidal ideation PHYSICAL EXAMINATION General: No acute distress, well-nourished Head: Atraumatic, normocephalic ENT: Mouth normal, oropharynx moist, no exudates or tonsillar enlargement Eyes: Conjunctiva normal, pupils equal, lids normal Neck: No JVD, supple, no guarding CVS: Normal rate, regular rhythm, no murmurs Resp: No resp distress, equal and normal breath sounds bilaterally GI: Nondistended, soft, no tenderness to palpation, no rebound or guarding Ext: No deformities, lateral lower leg edema, normal range of motion in upper an d lower ext Back: No CVA or midline TTP Skin: Edema bilateral lower extremities from the calf to the toes with scattered shallow ulcers, slight purulent drainage all open no fluctuance, started by some mild erythema. No confluent erythema bullae or crepitus is noted Lymphatic: No lymphadeopathy noted Neuro: Awake, alert. Face symmetric. GCS 15. Physical Exam - Vital signs Vitals: Temp Pulse Resp BP Pulse Ox 98.5 F 88 14 163/84 H 99 07/29/18 07:12 07/29/18 07:12 07/29/18 07:12 07/29/18 07:12 07/29/18 07:12 Course - Re-evaluation Re-evalutation: 07/29/18 12:22 Multiple sores folliculitis/developing cellulitis on both legs of the patient. No sepsis. History of diabetes and baseline edema. Will prescribe pain medication and antibiotics and stressed the importance of elevation. Legs were dressed and he will follow-up with his primary care. I have discussed with the patient there likely diagnosis, aftercare plan, follow-up plans and my usual and customary return precautions. They verbalized understanding of this. - Vital Signs Vital signs: Temp Pulse Resp BP Pulse Ox 98.9 F 72 18 162/84 H 99 07/29/18 09:41 07/29/18 09:41 07/29/18 09:41 07/29/18 09:41 07/29/18 09:41 Discharge - Discharge Clinical Impression: Folliculitis, Leg swelling Condition: Good Disposition: HOME, SELF-CARE Additional Instructions: Elevate your legs aggressively and keep the wrapping on for 1 day. Thereafter, check the redness and swelling and rewrap every day once a day. If the redness goes up above your knees please return to the emergency room. Prescriptions: RX: Doxycycline Hyclate 100 mg PO BID #14 capsule Oxycodone HCl/Acetaminophen [Percocet 5-325 mg Tablet] 1 - 2 tab PO Q4H PRN #15 tablet PRN Reason: Referrals: RY CHATTERJEE MD [Primary Care Provider] - Follow up as needed
[2018-07-29 09:43] VITALS: BP 162/84
== END 2018-07-29 09:50 | disposition home or self-care (01) ==
LOC: ER 07:00
DX: L73.9 Follicular disorder, unspecified (principal); L03.116 Cellulitis of left lower limb; L03.115 Cellulitis of right lower limb; M79.604 Pain in right leg; M79.605 Pain in left leg; R60.0 Localized edema; E11.9 Type 2 diabetes mellitus without complications; I10 Essential (primary) hypertension
CPT/HCPCS: 99283

== ENCOUNTER 2018-12-11 19:15 | Inpatient (IN) | payer MEDICAID, OTHER ==
[~2018-12-11 19:15] MED LIST: ETOMIDATE INJ/PF 20 MG/10 ML SDV IV ONE
[2018-12-11 19:39] LABS: ABSOLUTE LYMPHOCYTES (AUTO) 0.8 10^3/uL (0.5-4.7); ABSOLUTE MONOCYTES (AUTO) 0.6 10^3/uL (0.1-1.4); ABSOLUTE NEUT (AUTO) 3.6 10^3/uL (1.7-8.2); BASOPHILS % (AUTO) 0.7 % (0-2); EOSINOPHILS % (AUTO) 0.5 % (0-6); HEMATOCRIT 41.3 % (37.9-51.0); HEMOGLOBIN 14.3 g/dL (13.5-17.0); LYMPHOCYTES % (AUTO) 15.8 % (13-45); MEAN CORPUSCULAR HGB CONC 34.6 g/dL (32.0-36.0); MEAN CORPUSCULAR VOLUME 93 fl (80-97); MONOCYTES % (AUTO) 11.1 % (3-13); PLATELET COUNT 303 10^3/uL (150-450); RED BLOOD COUNT 4.46 10^6/uL (4.35-5.55); RED CELL DISTRIBUTION WIDTH 14.3 % (11.5-14.0); SEGMENTED NEUTROPHILS % (AUTO) 71.9 % (42-78); TOTAL CELLS COUNTED % (AUTO) 100 %; WHITE BLOOD COUNT 5.1 10^3/uL (4.0-10.5)
--- NOTE | 2018-12-11 19:46 | ER Document Report ---
ED General - General Chief Complaint: Unresponsive Stated Complaint: UNRESPONSIVE Time Seen by Provider: 12/11/18 19:24 Primary Care Provider: RY CHATTERJEE MD [Primary Care Provider] - Follow up as needed TRAVEL OUTSIDE OF THE [place] IN LAST 30 DAYS: No - HPI Notes: Mitch Hill is a 53-year-old male presenting with a chief complaint of altered mental status. Family members noted the patient is a noncompliant diabetic and also has a history of polysubstance abuse. They found the patient unresponsive and started doing CPR. On arrival EMS noted the patient had pinpo int pupils and was not breathing but had a pulse present. They administered multiple doses of Narcan and found patient had a blood sugar in the 40s. He was given D50. He became combative. He pulled out multiple IVs during transport. EMS placed an intraosseous line. They administered IM Versed and IV Ativan during transport. Unable to obtain additional history from patient at this time due to altered mental status. - Related Data Allergies/Adverse Reactions: No Known Allergies Allergy (Verified 06/08/17 20:19) Past Medical History - General Cannot obtain history due to: Altered mental status - Social History Smoking Status: Unknown if Ever Smoked Family History: DM, Hypertension - Past Medical History Cardiac Medical History: Reports: Hx Congestive Heart Failure - Diastolic, Hx Hypertension Pulmonary Medical History: Denies: Hx Asthma, Hx COPD, Hx Respiratory Failure Neurological Medical History: Denies: Hx Seizures Endocrine Medical History: Reports: Hx Diabetes Mellitus Type 2. Denies: Hx Diabetes Mellitus Type 1, Hx Hyperthyroidism, Hx Hypothyroidism Renal/ Medical History: Reports: Hx Renal Insufficiency. Denies: Hx Peritoneal Dialysis GI Medical History: Denies: Hx Cirrhosis, Hx Crohn's Disease, Hx Gastroesophageal Reflux Disease, Hx Hepatitis, Hx Ulcerative Colitis Musculoskeletal Medical History: Denies Hx Arthritis, Denies Hx Fibromyalgia, Denies Hx Gout Skin Medical History: Denies Hx Eczema, Denies Hx Psoriasis Psychiatric Medical History: Denies: Hx Depression Infectious Medical History: Denies: Hx Hepatitis Past Surgical History: Reports: Other - Denies any recent surgery Review of Systems - Review of Systems -: Yes ROS unobtainable due to patient's medical condition Physical Exam - Vital signs Vitals: Resp Pulse Ox 19 100 12/11/18 19:17 12/11/18 19:17 Notes: GENERAL: Male patient approximately stated age who is at this time combative and uncooperative. SKIN: Patient appears pale and is cool to touch. Multiple abrasions are noted which are widespread. HEAD: Normocephalic atraumatic. EYES: PERRLA. Conjunctivae and sclerae clear. EARS: CANALS AND TMS CLEAR. NOSE: CLEAR. MOUTH: Moist mucosa. Gag reflex is intact NECK: Supple. No masses or thyromegaly. No adenopathy. Carotids 2+ without bruits. No JVD. BACK: Symmetrical without tenderness. CHEST: Respirations unlabored. Breath sounds clear and symmetrical. HEART: Regular rhythm. No murmur gallop or rub. ABDOMEN: Soft nontender without masses, organomegaly or rebound. Bowel sounds normally active. No bruits. GENITALIA: Normal male. EXTREMITIES: No edema. No calf tenderness. Cap refill less than 1.5 seconds. Dorsalis pedis and posterior tibial pulses 3+ and symmetrical. NEUROLOGICAL: GCS= E4+V2+M5= 11. Moving all 4 ext. symmetrically. Psychiatric: Confused and uncooperative. Course - Vital Signs Vital signs: Temp Pulse Resp BP Pulse Ox 96.6 F L 62 16 160/106 H 100 12/11/18 22:45 12/11/18 20:02 12/11/18 22:45 12/11/18 22:45 12/11/18 22:45 - Laboratory Result Diagrams: 12/11/18 19:20 12/11/18 19:20 Laboratory results interpreted by me: 12/11/18 12/11/18 12/11/18 19:20 19:20 19:20 RDW 14.3 H Sodium 136.0 L Potassium 3.2 L BUN 25 H Glucose 24 L* POC Glucose Magnesium 2.6 H Creatine Kinase Urine Protein Urine Glucose (UA) Urine Blood Salicylates < 1.0 L Acetaminophen < 10 L 12/11/18 12/11/18 12/11/18 19:20 19:40 20:00 RDW Sodium Potassium BUN Glucose POC Glucose 283 H Magnesium Creatine Kinase 305 H Urine Protein 100 H Urine Glucose (UA) >=500 H Urine Blood SMALL H Salicylates Acetaminophen - EKG Interpretation by [place] EKG shows normal: Sinus rhythm Rate: Normal Voltage: Consistant with LVH Additional EKG results interpreted by me: 12/11/18 19:51 QT prolongation Procedures - Intubation Orotracheal Airway evaluation: Normal anatomy Mallampati Classification: Class 2 Medications: Etomidate, Succinylcholine Intubation method: Orotracheal Blade type: [place]se Blade size: 3 Equipment used: Glidescope ETT size: 7.5 ETT secured at: Teeth ETT secured at (cm): 22 Breath Sounds after Intubation: Equal End tidal CO2 confirmed: Yes Ventilator settings: SIMV Intubation Complications: No complications Critical Care Note - Critical Care Note Comments: 105 minutes critical care time. Patient was extremely agitated and presented with probable overdose and altered mental status. He was overtly combative. We observed him for an extended period of time and address his issues with hypoglycemia and hypothermia and attempted to sedate and restrain him with administration of titrated doses of benzodiazepine and haloperidol with little to no success. Because of his persistent combative state he was subsequently intubated using rapid sequence technique. Head CT showed no acute findings. His urine drug screen was positive for cocaine and benzodiazepines. No other agents identified on the UDS. His alcohol was less than 10. Case has been discussed with the on-call hospitalist Dr. Topete and patient will be admitted to ICU at this time. Discharge - Discharge Clinical Impression: Hypoglycemia, Cocaine abuse AMS (altered mental status) Qualifiers: Altered mental status type: delirium Qualified Code(s): R41.0 - Disorientation, unspecified Condition: Critical Disposition: ADMITTED INPATIENT Admitting Provider: Efrem (Hospitalist) Referrals: RY CHATTERJEE MD [Primary Care Provider] - Follow up as needed
[2018-12-11 19:57] LABS: ALBUMIN 4.1 g/dL (3.5-5.0); ALKALINE PHOSPHATASE 78 U/L (38-126); ANION GAP 6 (5-19); ASPARTATE AMINO TRANSFERASE 46 U/L (17-59); BILIRUBIN,DIRECT 0.1 mg/dL (0.0-0.4); BILIRUBIN,TOTAL 0.3 mg/dL (0.2-1.3); BLOOD UREA NITROGEN 25 mg/dL (7-20); CALCIUM 9.5 mg/dL (8.4-10.2); CARBON DIOXIDE 30 mmol/L (22-30); CHLORIDE 100 mmol/L (98-107); POTASSIUM 3.2 mmol/L (3.6-5.0); TOTAL PROTEIN 7.3 g/dL (6.3-8.2)
[2018-12-11 19:59] LABS: ACETAMINOPHEN < 10 ug/mL (10-30); ALCOHOL < 10 mg/dL (NONE DETECTED); SALICYLATE < 1.0 mg/dL (2.0-20.0)
[2018-12-11 20:03] LABS: GLUCOSE 24 mg/dL (75-110)
[2018-12-11] MEDS ORDERED: HALOPERIDOL LACTATE INJ 5 MG/1 ML VIAL ONE (20:28)
[2018-12-11 20:35] LABS: APPEARANCE,URINE CLEAR; BILIRUBIN,URINE NEGATIVE (NEGATIVE); COLOR,URINE STRAW; GLUCOSE, URINE >=500 mg/dL (NEGATIVE); KETONES,URINE NEGATIVE (NEGATIVE); LEUKOCYTE ESTERASE,URINE NEGATIVE (NEGATIVE); NITRITE,URINE NEGATIVE (NEGATIVE); PROTEIN,URINE 100 mg/dL (NEGATIVE); URINE SPECIFIC GRAVITY 1.008; UROBILINOGEN,URINE NEGATIVE mg/dL (<2.0)
[2018-12-11] MEDS ORDERED: POTASSI CL 20 MEQ/50 ML RIDER 20 MEQ/50 ML RTUPB IV ONE (20:36)
[2018-12-11 20:43] LABS: URINE AMPHETAMINES SCREEN NEGATIVE; URINE BARBITURATES SCREEN NEGATIVE; URINE BENZODIAZEPINES SCREEN UNCONFIRMED POSITIVE; URINE COCAINE SCREEN UNCONFIRMED POSITIVE; URINE MARIJUANA (THC) SCREEN NEGATIVE; URINE METHADONE SCREEN NEGATIVE; URINE PHENCYCLIDINE SCREEN NEGATIVE
[2018-12-11] MEDS ORDERED: PROPOFOL 1,000 MG/100 ML INFUS..BTL IV ONE (20:54)
[2018-12-11] MEDS ORDERED: SUCCINYLCHOLINE CHLORIDE INJ 200 MG/10 ML VIAL IV ONE (21:41)
[2018-12-11] MEDS ORDERED: PROPOFOL 1,000 MG/100 ML INFUS..BTL IV PRN ×2 (21:41→23:18)
[2018-12-11] MEDS ORDERED: DEXTROSE 50%-WATER 25 GM/50 ML DISP.SYRIN IV ONE (21:41)
[2018-12-11] MEDS ORDERED: DIPHENHYDRAMINE HCL 50 MG/ML VIAL IV ONE (21:41)
[2018-12-11] MEDS ORDERED: ETOMIDATE INJ/PF 20 MG/10 ML SDV IV ONE (21:41)
[2018-12-11] MEDS ORDERED: LORAZEPAM INJ 2 MG/1 ML VIAL IV ONE (21:41)
[2018-12-11] MEDS ORDERED: HALOPERIDOL LACTATE INJ 5 MG/1 ML VIAL IM ONE ×2 (21:48→22:20)
--- NOTE | 2018-12-11 22:09 | RADIOLOGY REPORT (SQ) ---
EXAM DESCRIPTION: XR CHEST 1 VIEW COMPLETED DATE/TME: 12/11/2018 19:27 CLINICAL HISTORY: 53 years, Male, ams COMPARISON: 09/08/2018 chest NUMBER OF VIEWS: 1 TECHNIQUE: Portable chest LIMITATIONS: None. FINDINGS: The heart size is normal. Endotracheal tube with the tip 4 cm above the mike. Enteric tube with the tip extending into the left upper quadrant likely in the stomach. Mild elevation of the right hemidiaphragm. Lungs are hyperinflated. Chronic blunting of the right costophrenic angle. No pneumothorax IMPRESSION: Endotracheal and enteric tubes in place. Underlying hyperinflation. Chronic blunting of the right costophrenic angle may reflect chronic tiny effusion and/or pleural thickening copyright 2010 [employer]- All Rights Reserved
--- NOTE | 2018-12-11 22:28 | RADIOLOGY REPORT (SQ) ---
EXAM DESCRIPTION: CT HEAD WITHOUT IV CONTRAST COMPLETED DATE/TME: 12/11/2018 19:27 CLINICAL HISTORY: 53 years, Male, ams COMPARISON: 07/14/2018 CT TECHNIQUE: 184 Images stored on PACS. All CT scanners at this facility use dose modulation, iterative reconstruction, and/or weight based dosing when appropriate to reduce radiation dose to as low as reasonably achievable (ALARA). [facility]: Dose Right [facility]: CareDose [facility]: Dose Right [facility]: Teradose 4D [facility]: [employer] LIMITATIONS: None. FINDINGS: The globes are intact. Endotracheal and enteric tubes are partially seen. Paranasal sinuses and mastoid air cells are well aerated. No displaced or depressed skull fracture. No intra or extra-axial hemorrhage. CT is limited for evaluation of acute infarct. No CT evidence for large or territorial acute infarct. 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 No mass or midline shift IMPRESSION: Old left occipital infarct. No acute intracranial abnormality TECHNICAL DOCUMENTATION: Quality ID # [id number]: Final reports with documentation of one or more dose reduction techniques (e.g., Automated exposure control, adjustment of the mA and/or kV according to patient size, use of iterative reconstruction technique) copyright 2010 [employer]- All Rights Reserved
[2018-12-11] MEDS ORDERED: DEXTROSE 10%-1/4 NORMAL SALINE 250 ML IV PRN (22:30)
[2018-12-11] MEDS ORDERED: MIDAZOLAM HCL 50 MG/100 ML RTUINJ IV PRN (23:18)
[2018-12-11] MEDS ORDERED: LEVALBUTEROL HCL NEB 0.63 MG/3 ML AMPUL NEB ONE (23:18)
[2018-12-11] MEDS ORDERED: DEXTROSE 5%-LACTATED RINGERS 1,000 ML IV PRN (23:18)
[2018-12-11] MEDS ORDERED: ONDANSETRON HCL INJ/PF 4 MG/2 ML SDV IV PRN (23:18)
[2018-12-11] MEDS ORDERED: DEXTROSE 50%-WATER 25 GM/50 ML DISP.SYRIN IV PRN ×2 (23:24)
[2018-12-11] MEDS ORDERED: DEXTROSE 40% GEL 15 GM TUBE PO PRN ×2 (23:24)
[2018-12-11] MEDS ORDERED: GLUCAGON,HUMAN RECOMB 1 MG INJ IM PRN (23:24)
[2018-12-11 23:55] LABS: CREATINE KINASE MB 6.98 ng/mL (<4.55); TROPONIN I 0.017 ng/mL
[2018-12-12] MEDS ORDERED: PHENOBARBITAL INJ 65 MG/ML VIAL ONE ×2 (01:38→01:42)
--- NOTE | 2018-12-12 01:38 | PDOC H&P ---
History of Present Illness Admission Date/PCP: 12/11/2018 23:06 RY CHATTERJEE MD Patient complains of: Altered mental status History of Present Illness: AMPARO PHAN is a 53 year old male who was brought to the emergency room via EMS after becoming unresponsive at home. The family indicates that the patient was witnessed "taking drugs at home" and he became unresponsive resulting in their immediate performance of CPR. EMS was also summoned and upon EMSs arrival the patient was noted to have pinpoint pupils, a pulse was present but there was no voluntary respiration. Patient was administered several ampules of Narcan and was also given D50 for a low blood sugar. After the Narcan he became extremely combative pulling out his IV's and required placement of an interosseous line by the paramedics. He also received IM Versed and IV Ativan during his transport. In the emergency room patient continued to be extremely combative and physically uncontrollable requiring restraint and subsequently resulting in his intubation. Patient is known to have a prior history of drug abuse and previous overdose and was recently hospitalized in the ICU of this facility. Patient was subsequently admitted to the ICU for further evaluation and treatment. Past Medical History Cardiac Medical History: Reports: Congestive Heart Failure - Diastolic, Hypertension Pulmonary Medical History: Denies: Asthma, Chronic Obstructive Pulmonary Disease (COPD), Respiratory Failure EENT Medical History: Denies: Cataracts, Ears - Hearing aids Neurological Medical History: Denies: Hemorrhagic CVA, Ischemic CVA, Seizures Endocrine Medical History: Reports: Diabetes Mellitus Type 2 Denies: Diabetes Mellitus Type 1, Hyperthyroidism, Hypothyroidism, Obesity Renal/ Medical History: Denies: Chronic Kidney Disease, Nephrolithiasis Malignancy Medical History: Reports: None GI Medical History: Denies: Cirrhosis, Crohn's Disease, Gastroesophageal Reflux Disease, Hepatitis, Ulcerative Colitis Musculoskeltal Medical History: Denies: Arthritis, Fibromyalgia, Gout Skin Medical History: Denies: Eczema, Psoriasis Psychiatric Medical History: Reports: Alcohol Dependency, Substance Abuse, Tobacco Dependency Denies: Depression Traumatic Medical History: Reports: None Hematology: Denies: Anemia, Bleeding Tendencies Infectious Medical History: Reports: None Past Surgical History Past Surgical History: Reports: None Social History Information Source: [facility] Records Lives with: Family Smoking Status: Former Smoker Electronic Cigarette use?: No Frequency of Alcohol Use: Heavy - History of heavy alcohol use in the past, no current use or abuse is reported Hx Recreational Drug Use: Yes Drugs: Cocaine, Other - Benzodiazepines Hx Prescription Drug Abuse: No - Advance Directive Resuscitation Status: Full Code Surrogate healthcare decision maker:: Pamela Rincon Family History Family History: DM, Hypertension. denies: CAD, Malignancy Parental Family History Reviewed: Yes Children Family History Reviewed: No Sibling(s) Family History Reviewed.: Yes Medication/Allergy Home Medications: Insulin Aspart Protam & Aspart [Novolog Mix 70-30 Vial] 30 unit SQ BID 09/08/18 Losartan Potassium [Cozaar 100 mg Tablet] 100 mg PO DAILY #30 tablet 09/12/18 Allergies/Adverse Reactions: No Known Allergies Allergy (Verified 06/08/17 20:19) Review of Systems ROS unobtainable: Due to endotracheal tube Physical Exam Vital Signs: Temp Pulse Resp BP Pulse Ox 96.6 F L 62 16 160/106 H 100 12/11/18 22:45 12/11/18 20:02 12/11/18 22:45 12/11/18 22:45 12/11/18 22:45 Intake & Output 12/09/18 12/10/18 12/11/18 23:59 23:59 22:59 Intake Total 4 Balance 4 Weight 46.5 kg General appearance: PRESENT: no acute distress, other - Endotracheally intubated and mechanically ventilated at the time of my evaluation Head exam: PRESENT: atraumatic, normocephalic Eye exam: PRESENT: conjunctiva pink. ABSENT: conjunctival injection, scleral icterus Ear exam: PRESENT: normal external ear exam. ABSENT: bleeding, drainage Mouth exam: PRESENT: dry mucosa, neck supple, tongue midline Teeth exam: PRESENT: dental caries, poor dentation Neck exam: PRESENT: other - Endotracheal tube in good position. ABSENT: JVD, thyromegaly, tracheal deviation Respiratory exam: PRESENT: symmetrical, other - Endotracheally intubated and mechanically ventilated on exam. ABSENT: rales, rhonchi Cardiovascular exam: PRESENT: RRR. ABSENT: clicks, gallop, rubs Pulses: PRESENT: normal radial pulses, normal dorsalis pedis pul Vascular exam: PRESENT: normal capillary refill. ABSENT: pallor GI/Abdominal exam: PRESENT: normal bowel sounds, soft Rectal exam: PRESENT: deferred Extremities exam: ABSENT: joint swelling, pedal edema Musculoskeletal exam: ABSENT: deformity, dislocation Neurological exam: PRESENT: altered - Sedated for intubation, other - Endotracheally intubated and mechanically ventilated Psychiatric exam: PRESENT: other - Endotracheally intubated and mechanically ventilated Skin exam: PRESENT: dry, intact, warm. ABSENT: jaundice, rash, urticaria Results Laboratory Results: 12/11/18 19:20 12/11/18 19:20 12/11/18 12/11/18 12/11/18 19:20 19:20 19:20 WBC 5.1 RBC 4.46 Hgb 14.3 Hct 41.3 MCV 93 MCH 32.0 MCHC 34.6 RDW 14.3 H Plt Count 303 Seg Neutrophils % 71.9 Sodium 136.0 L Potassium 3.2 L Chloride 100 Carbon Dioxide 30 Anion Gap 6 BUN 25 H Creatinine 0.75 Est GFR ( Amer) > 60 Glucose 24 L* Lactic Acid 2.1 Calcium 9.5 Magnesium Total Bilirubin 0.3 AST 46 Alkaline Phosphatase 78 Total Protein 7.3 Albumin 4.1 Urine Color Urine Appearance Urine pH Ur Specific [place] Urine Protein Urine Glucose (UA) Urine Ketones Urine Blood Urine Nitrite Ur Leukocyte Esterase Urine WBC (Auto) Urine RBC (Auto) 12/11/18 12/11/18 19:20 20:00 WBC RBC Hgb Hct MCV MCH MCHC RDW Plt Count Seg Neutrophils % Sodium Potassium Chloride Carbon Dioxide Anion Gap BUN Creatinine Est GFR ( Amer) Glucose Lactic Acid Calcium Magnesium 2.6 H Total Bilirubin AST Alkaline Phosphatase Total Protein Albumin Urine Color STRAW Urine Appearance CLEAR Urine pH 7.0 Ur Specific [place] 1.008 Urine Protein 100 H Urine Glucose (UA) >=500 H Urine Ketones NEGATIVE Urine Blood SMALL H Urine Nitrite NEGATIVE Ur Leukocyte Esterase NEGATIVE Urine WBC (Auto) 2 Urine RBC (Auto) 5 12/11/18 19:20 Creatine Kinase 305 H Impressions: Chest X-Ray 12/11/18 19:27 IMPRESSION: Endotracheal and enteric tubes in place. Underlying hyperinflation. Chronic blunting of the right costophrenic angle may reflect chronic tiny effusion and/or pleural thickening copyright 2010 [email or web address]- All Rights Reserved Head CT 12/11/18 19:27 IMPRESSION: Old left occipital infarct. No acute intracranial abnormality TECHNICAL DOCUMENTATION: Quality ID # 436: Final reports with documentation of one or more dose reduction techniques (e.g., Automated exposure control, adjustment of the mA and/or kV according to patient size, use of iterative reconstruction technique) copyright 2010 [email or web address]- All Rights Reserved Assessment and Plan - Diagnosis (1) Acute hyperactive delirium due to another medical condition Is this a current diagnosis for this admission?: Yes (2) Hypoglycemia Is this a current diagnosis for this admission?: Yes (3) Cocaine abuse Is this a current diagnosis for this admission?: Yes (4) Polysubstance abuse Is this a current diagnosis for this admission?: Yes (5) Hypertension Qualifiers: Hypertension type: essential hypertension Qualified Code(s): I10 - Essential (primary) hypertension Is this a current diagnosis for this admission?: Yes - Plan Summary Summary: Patient is admitted to the ICU and will be continued on mechanical ventilation via endotracheal intubation at least through the night. I have adjusted his ventilator settings and will follow blood gases and O2 sats as appropriate until morning. Patient will be sedated with midozalam as an intravenous infusion and will also have propofol available for sedation as required. He will be closely monitored for withdrawal symptoms such as seizures that may occur despite his current sedation. He will be monitored closely throughout his hospital course and treated with appropriate supportive and symptomatic cares including IV fluids, analgesics and antiemetics. A CBC, comprehensive metabolic profile, ABG, magnesium level and portable chest x-ray will be obtained in the morning prior to turning the patient over for care of the automatic line set up mechanic. - Time Time Spent with patient: 25-34 minutes Medications reviewed and adjusted accordingly: No - med list unavailable - Inpatient Certification Based on my medical assessment, after consideration of the patient's comorbidities, presenting symptoms, or acuity I expect that the services needed warrant INPATIENT care.: Yes I certify that my determination is in accordance with my understanding of Medicare's requirements for reasonable and necessary INPATIENT services [42 CFR 412.3e].: Yes Medical Necessity: Need Close Monitoring Due to Risk of Patient Decompensation, Need For IV Fluids, Need For Continuous Telemetry Monitoring, Need for Neurological Checks, Risk of Complication if Not Cared For in Hospital
--- NOTE | 2018-12-12 01:45 | Progress Note ---
Provider Note Provider Note: Critical care: 12/12/2018 Critical care start time: 1:27 AM Critical care issue: Restlessness and poor sedation despite maximized propofol and midazolam I was asked to see the patient by his ICU nurse because he continued to be very restless and difficult to keep safe on the bed with his intravenous infusions also safely protected. I witnessed the patient with gross motor movements and flailing on the bed and nearly coming off of both sides of the bed during a short period of direct observation and assistance of the nursing staff and getting the patient back on the bed. The patient was treated with phenobarbital 65 mg IV stat and then every 8 hours as needed for severe restlessness. Patient's initial response to was very good with markedly decreased restlessness noted throughout my continued observation. Critical care end time: 1:44 AM Total critical care time: 17 minutes
[2018-12-12] MEDS: PHENOBARBITAL INJ 65 MG/ML VIAL IV PRN (01:50)
[2018-12-12 02:00] LABS: CREATINE KINASE MB 16.6 ng/mL (<4.55); TROPONIN I 0.033 ng/mL
[2018-12-12] MEDS ORDERED: MORPHINE SULFATE 10 MG/ML INJ ONE (02:07)
[2018-12-12] MEDS ORDERED: MORPHINE SULFATE 10 MG/ML INJ IV PRN ×4 (02:28→02:32)
[2018-12-12 03:29] LABS: ARTERIAL BLOOD BASE EXCESS -2.2 mmol/L; ARTERIAL BLOOD FIO2 35%; ARTERIAL BLOOD H2CO3 0.65 mmol/L (1.05-1.35); ARTERIAL BLOOD HCO3 18.7 mmol/L (20-24); ARTERIAL BLOOD O2 SATURATION 99.4 % (94-98); ARTERIAL BLOOD PCO2 21.7 mmHg (35-45); ARTERIAL BLOOD PH 7.55 (7.35-7.45); ARTERIAL BLOOD PO2 181.3 mmHg (80-100); ARTERIAL BLOOD TOTAL CO2 19.4 mmol/L (23-27)
[2018-12-12] MEDS ORDERED: INFLUENZA QUAD (6MOS+) 2019-20 VAC 0.5 ML SYR IM ONE (05:02)
[2018-12-12] MEDS: HEPARIN SOD (PORCINE) 5,000 UNIT/ML 1 ML VIAL SUBCUT SCH ×3 (05:54→22:07)
[2018-12-12] MEDS: RINGERS SOLUTION,LACTATED 1,000 ML IV PRN ×3 (05:58→22:26)
[2018-12-12] MEDS ORDERED: PHENOBARBITAL INJ 65 MG/ML VIAL IV SCH (06:00)
--- NOTE | 2018-12-12 06:13 | EKG REPORT ---
SEVERITY:- ABNORMAL ECG - SINUS RHYTHM LEFT VENTRICULAR HYPERTROPHY OLD ANTERIOR INFARCT PROLONGED QT INTERVAL : Confirmed by: Brendan Cummings MD 12-Dec-2018 06:13:29
[2018-12-12 07:55] LABS: HEMATOCRIT 32.6 % (37.9-51.0); MEAN CORPUSCULAR HEMOGLOBIN 31.9 pg (27.0-33.4); MEAN CORPUSCULAR HGB CONC 34.6 g/dL (32.0-36.0); MEAN CORPUSCULAR VOLUME 92 fl (80-97); PLATELET COUNT 226 10^3/uL (150-450); RED BLOOD COUNT 3.53 10^6/uL (4.35-5.55); RED CELL DISTRIBUTION WIDTH 14.3 % (11.5-14.0); WHITE BLOOD COUNT 8.9 10^3/uL (4.0-10.5)
[2018-12-12 07:56] LABS: HEMOGLOBIN 11.3 g/dL (13.5-17.0)
[2018-12-12 08:10] LABS: ALBUMIN 2.9 g/dL (3.5-5.0); ALKALINE PHOSPHATASE 64 U/L (38-126); ASPARTATE AMINO TRANSFERASE 55 U/L (17-59); BILIRUBIN,DIRECT 0.1 mg/dL (0.0-0.4); BILIRUBIN,TOTAL 0.5 mg/dL (0.2-1.3); BLOOD UREA NITROGEN 19 mg/dL (7-20); CALCIUM 8.4 mg/dL (8.4-10.2); CREATINE KINASE 972 U/L (55-170); GLUCOSE 224 mg/dL (75-110); POTASSIUM 4.1 mmol/L (3.6-5.0); TOTAL PROTEIN 5.6 g/dL (6.3-8.2)
[2018-12-12 08:15] LABS: ANION GAP 5 (5-19); CARBON DIOXIDE 22 mmol/L (22-30); CHLORIDE 106 mmol/L (98-107)
[2018-12-12] MEDS: INSULIN REG, HUMAN 100 UNIT/ML 3 ML VIAL (PYX) SUBCUT SCH ×4 (08:18→20:51)
[2018-12-12 08:24] LABS: CREATINE KINASE MB 11.9 ng/mL (<4.55); TROPONIN I 0.03 ng/mL
--- NOTE | 2018-12-12 08:55 | PDOC PROGRESS REPORT ---
Subjective Progress Note for:: 12/12/18 Subjective:: Sedated on vent Reason For Visit: MULTIPLE DRUG OVERDOSE, RESPIRATORY ARREST, Physical Exam Vital Signs: Temp Pulse Resp BP Pulse Ox 97.9 F 76 16 128/89 H 100 12/12/18 08:00 12/12/18 08:00 12/12/18 08:00 12/12/18 08:00 12/12/18 08:26 Intake & Output 12/11/18 12/12/18 12/13/18 06:59 06:59 06:59 Intake Total 57 Output Total 1735 25 Balance -1678 -25 Weight 48.2 kg General appearance: PRESENT: no acute distress Head exam: PRESENT: atraumatic, normocephalic Eye exam: PRESENT: conjunctiva pink, EOMI, PERRLA. ABSENT: scleral icterus Ear exam: PRESENT: normal external ear exam Mouth exam: PRESENT: moist, tongue midline Respiratory exam: PRESENT: clear to auscultation baldemar, decreased breath sounds Cardiovascular exam: PRESENT: RRR. ABSENT: diastolic murmur, rubs, systolic murmur Vascular exam: PRESENT: normal capillary refill GI/Abdominal exam: PRESENT: normal bowel sounds, soft. ABSENT: distended, guarding, mass, organolmegaly, rebound, tenderness Rectal exam: PRESENT: deferred Gentrourinary exam: PRESENT: indwelling catheter Extremities exam: PRESENT: full ROM Musculoskeletal exam: PRESENT: full ROM Additional comments: Sedated on vent. Results Laboratory Results: 12/12/18 07:39 12/12/18 07:39 12/11/18 12/11/18 12/11/18 19:20 19:20 19:20 WBC 5.1 RBC 4.46 Hgb 14.3 Hct 41.3 MCV 93 MCH 32.0 MCHC 34.6 RDW 14.3 H Plt Count 303 Seg Neutrophils % 71.9 Carbonic Acid HCO3/H2CO3 Ratio ABG pH ABG pCO2 ABG pO2 ABG HCO3 ABG O2 Saturation ABG Base Excess FiO2 Sodium 136.0 L Potassium 3.2 L Chloride 100 Carbon Dioxide 30 Anion Gap 6 BUN 25 H Creatinine 0.75 Est GFR ( Amer) > 60 Glucose 24 L* Lactic Acid 2.1 Calcium 9.5 Magnesium Total Bilirubin 0.3 AST 46 Alkaline Phosphatase 78 Total Protein 7.3 Albumin 4.1 Urine Color Urine Appearance Urine pH Ur Specific [place] Urine Protein Urine Glucose (UA) Urine Ketones Urine Blood Urine Nitrite Ur Leukocyte Esterase Urine WBC (Auto) Urine RBC (Auto) 12/11/18 12/11/18 12/12/18 19:20 20:00 03:15 WBC RBC Hgb Hct MCV MCH MCHC RDW Plt Count Seg Neutrophils % Carbonic Acid 0.65 L HCO3/H2CO3 Ratio 28:1 ABG pH 7.55 H ABG pCO2 21.7 L ABG pO2 181.3 H ABG HCO3 18.7 L ABG O2 Saturation 99.4 H ABG Base Excess -2.2 FiO2 35% Sodium Potassium Chloride Carbon Dioxide Anion Gap BUN Creatinine Est GFR ( Amer) Glucose Lactic Acid Calcium Magnesium 2.6 H Total Bilirubin AST Alkaline Phosphatase Total Protein Albumin Urine Color STRAW Urine Appearance CLEAR Urine pH 7.0 Ur Specific [place] 1.008 Urine Protein 100 H Urine Glucose (UA) >=500 H Urine Ketones NEGATIVE Urine Blood SMALL H Urine Nitrite NEGATIVE Ur Leukocyte Esterase NEGATIVE Urine WBC (Auto) 2 Urine RBC (Auto) 5 12/12/18 12/12/18 07:39 07:39 WBC 8.9 RBC 3.53 L Hgb 11.3 L D Hct 32.6 L MCV 92 MCH 31.9 MCHC 34.6 RDW 14.3 H Plt Count 226 Seg Neutrophils % Carbonic Acid HCO3/H2CO3 Ratio ABG pH ABG pCO2 ABG pO2 ABG HCO3 ABG O2 Saturation ABG Base Excess FiO2 Sodium 133.0 L Potassium 4.1 Chloride 106 Carbon Dioxide 22 Anion Gap 5 BUN 19 Creatinine 0.72 Est GFR ( Amer) > 60 Glucose 224 H Lactic Acid Calcium 8.4 Magnesium 1.8 Total Bilirubin 0.5 AST 55 Alkaline Phosphatase 64 Total Protein 5.6 L Albumin 2.9 L Urine Color Urine Appearance Urine pH Ur Specific [place] Urine Protein Urine Glucose (UA) Urine Ketones Urine Blood Urine Nitrite Ur Leukocyte Esterase Urine WBC (Auto) Urine RBC (Auto) 12/11/18 12/11/18 12/12/18 19:20 19:20 01:14 Creatine Kinase 305 H 1402 H CK-MB (CK-2) 6.98 H Troponin I 0.017 12/12/18 12/12/18 12/12/18 01:14 07:39 07:39 Creatine Kinase 972 H CK-MB (CK-2) 16.60 H 11.90 H Troponin I 0.033 0.030 Impressions: Head CT 12/11/18 19:27 IMPRESSION: Old left occipital infarct. No acute intracranial abnormality TECHNICAL DOCUMENTATION: Quality ID # 436: Final reports with documentation of one or more dose reduction techniques (e.g., Automated exposure control, adjustment of the mA and/or kV according to patient size, use of iterative reconstruction technique) copyright 2011 [employer] All Rights Reserved Assessment & Plan - Diagnosis (1) Acute respiratory failure Qualifiers: Respiratory failure complication: unspecified whether with hypoxia or hypercapnia Qualified Code(s): J96.00 - Acute respiratory failure, unspecified whether with hypoxia or hypercapnia Is this a current diagnosis for this admission?: Yes Plan: This is due to his altered mentation and need for sedation. When this has metabolized hope to extubate, weaning started. (2) AMS (altered mental status) Qualifiers: Altered mental status type: delirium Qualified Code(s): R41.0 - Disorientation, unspecified Is this a current diagnosis for this admission?: Yes Plan: Seems to be C/W unintentional OD. When extubated and more lucid plan to investigate events and need for IVC or not. (3) Hypoglycemia Is this a current diagnosis for this admission?: Yes Plan: No further recurrence. - Time Time Spent with patient: 35 or more minutes Total Critical Time (Minutes): 35 Level of Care: ICU Medications reviewed and adjusted accordingly: Yes Anticipated discharge: Home Within: within 72 hours - Inpatient Certification Based on my medical assessment, after consideration of the patient's comorbidities, presenting symptoms, or acuity I expect that the services needed warrant INPATIENT care.: Yes I certify that my determination is in accordance with my understanding of Medicare's requirements for reasonable and necessary INPATIENT services [42 CFR 412.3e].: Yes Medical Necessity: Failure to Improve With Outpatient Therapy, Need Close Monitoring Due to Risk of Patient Decompensation, Need For IV Fluids, Need For Continuous Telemetry Monitoring, Need for Nebulizer Therapy and Monitoring of Response, Need for Neurological Checks, Risk of Complication if Not Cared For in Hospital
[2018-12-12] MEDS: FAMOTIDINE 20 MG TABLET PO SCH ×2 (09:53→22:07)
[2018-12-12] MEDS ORDERED: PANTOPRAZOLE SODIUM 40 MG VIAL IV SCH (10:00)
--- NOTE | 2018-12-12 10:58 | RADIOLOGY REPORT (SQ) ---
EXAM DESCRIPTION: CHEST SINGLE VIEW COMPLETED DATE/TIME: 12/12/2018 6:54 am REASON FOR STUDY: Endotracheal intubation COMPARISON: 12/11/2018 NUMBER OF VIEWS: One view. TECHNIQUE: Single frontal radiographic image of the chest acquired. LIMITATIONS: None. FINDINGS: LUNGS AND PLEURA: Stable appearance. MEDIASTINUM AND HILAR STRUCTURES: Stable heart size and mediastinal structures. HEART AND VASCULAR STRUCTURES: Stable appearance. SUPPORT DEVICES: Appropriate location without change. BONES: No acute findings. OTHER: No other significant finding. IMPRESSION: STABLE APPEARANCE OF THE CHEST. SUPPORT DEVICES UNCHANGED. TECHNICAL DOCUMENTATION: JOB ID: [id number] [email or web address]- All Rights Reserved Reading location - IP/workstation name: [email or web address]
[2018-12-12] MEDS ORDERED: ONDANSETRON HCL INJ/PF 4 MG/2 ML SDV IV PRN (11:30)
[2018-12-13] MEDS: INSULIN REG, HUMAN 100 UNIT/ML 3 ML VIAL (PYX) SUBCUT SCH ×4 (00:29→13:39)
[2018-12-13 04:23] LABS: HEMATOCRIT 34.8 % (37.9-51.0); HEMOGLOBIN 11.8 g/dL (13.5-17.0); MEAN CORPUSCULAR HEMOGLOBIN 31.2 pg (27.0-33.4); MEAN CORPUSCULAR HGB CONC 33.9 g/dL (32.0-36.0); MEAN CORPUSCULAR VOLUME 92 fl (80-97); PLATELET COUNT 238 10^3/uL (150-450); RED BLOOD COUNT 3.78 10^6/uL (4.35-5.55); RED CELL DISTRIBUTION WIDTH 14.6 % (11.5-14.0); WHITE BLOOD COUNT 7.4 10^3/uL (4.0-10.5)
[2018-12-13] MEDS: PHENOBARBITAL INJ 65 MG/ML VIAL IV PRN (05:29)
[2018-12-13 05:31] LABS: ALBUMIN 3.2 g/dL (3.5-5.0); ALKALINE PHOSPHATASE 79 U/L (38-126); ASPARTATE AMINO TRANSFERASE 58 U/L (17-59); BILIRUBIN,DIRECT 0.1 mg/dL (0.0-0.4); BILIRUBIN,TOTAL 0.4 mg/dL (0.2-1.3); BLOOD UREA NITROGEN 13 mg/dL (7-20); CALCIUM 8.9 mg/dL (8.4-10.2); CARBON DIOXIDE 28 mmol/L (22-30); CHLORIDE 106 mmol/L (98-107); GLUCOSE 81 mg/dL (75-110); POTASSIUM 3.9 mmol/L (3.6-5.0); TOTAL PROTEIN 5.9 g/dL (6.3-8.2)
[2018-12-13] MEDS: RINGERS SOLUTION,LACTATED 1,000 ML IV PRN (05:38)
[2018-12-13] MEDS: HEPARIN SOD (PORCINE) 5,000 UNIT/ML 1 ML VIAL SUBCUT SCH ×3 (05:40→21:46)
[2018-12-13 05:41] LABS: ANION GAP 4 (5-19)
[2018-12-13] MEDS: FAMOTIDINE 20 MG TABLET PO SCH (09:34)
[2018-12-13] MEDS ORDERED: ASPART SQ SCH (10:00)
[2018-12-13] MEDS ORDERED: (PENDING PHARMACY ID) (Thiamine Hcl [Vitamin B-1] 100 MG) PO SCH (10:00)
[2018-12-13] MEDS ORDERED: INSULIN ASPART PROTAM SQ SCH (10:00)
[2018-12-13] MEDS ORDERED: INSULIN REG, HUMAN 100 UNIT/ML 3 ML VIAL (PYX) SUBCUT SCH (16:00)
--- NOTE | 2018-12-13 17:28 | PDOC PROGRESS REPORT ---
Subjective Progress Note for:: 12/13/18 Subjective:: AMPARO PHAN is a 53 year old male who was brought to the emergency room via EMS after becoming unresponsive at home. The family indicates that the patient was witnessed "taking drugs at home" and he became unresponsive resulting in their immediate performance of CPR. EMS was also summoned and upon EMSs arrival the patient was noted to have pinpoint pupils, a pulse was present but there was no voluntary respiration. Patient was administered several ampules of Narcan and was also given D50 for a low blood sugar. After the Narcan he became extremely combative pulling out his IV's and required placement of an interosseous line by the paramedics. He also received IM Versed and IV Ativan during his transport. In the emergency room patient continued to be extremely combative and physically uncontrollable requiring restraint and subsequently resulting in his intubation. Patient is known to have a prior history of drug abuse and previous overdose and was recently hospitalized in the ICU of this facility. Patient was subsequently admitted to the ICU for further evaluation and treatment. 12/13/2018. No acute events overnight. Patient transferred to floor today. Patient resting in bed comfortably, in no apparent distress, denies any fever, chills, nausea, vomiting, diarrhea constipation or any urinary symptoms. Reason For Visit: MULTIPLE DRUG OVERDOSE, RESPIRATORY ARREST, Physical Exam Vital Signs: Temp Pulse Resp BP Pulse Ox 98.7 F 101 H 12 170/102 H 99 12/13/18 14:28 12/13/18 17:06 12/13/18 14:28 12/13/18 17:06 12/13/18 14:28 Intake & Output 12/12/18 12/13/18 12/14/18 06:59 06:59 06:59 Intake Total 57 2972 421 Output Total 5790 7310 250 Balance -1678 262 171 Weight 48.2 kg General appearance: PRESENT: no acute distress, well-developed, well-nourished Head exam: PRESENT: atraumatic, normocephalic Eye exam: PRESENT: conjunctiva pink, EOMI, PERRLA. ABSENT: scleral icterus Ear exam: PRESENT: normal external ear exam Mouth exam: PRESENT: moist, tongue midline Neck exam: ABSENT: carotid bruit, JVD, lymphadenopathy, thyromegaly Respiratory exam: PRESENT: clear to auscultation baldemar. ABSENT: rales, rhonchi, wheezes Cardiovascular exam: PRESENT: RRR. ABSENT: diastolic murmur, rubs, systolic mur [place] Pulses: PRESENT: normal dorsalis pedis pul Vascular exam: PRESENT: normal capillary refill GI/Abdominal exam: PRESENT: normal bowel sounds, soft. ABSENT: distended, guarding, mass, organolmegaly, rebound, tenderness Rectal exam: PRESENT: deferred Extremities exam: PRESENT: full ROM. ABSENT: calf tenderness, clubbing, pedal edema Neurological exam: PRESENT: alert, awake, oriented to person, oriented to place, oriented to time, oriented to situation, CN II-XII grossly intact. ABSENT: motor sensory deficit Psychiatric exam: PRESENT: appropriate affect, normal mood. ABSENT: homicidal ideation, suicidal ideation Skin exam: PRESENT: dry, intact, warm. ABSENT: cyanosis, rash Results Laboratory Results: 12/13/18 04:09 12/13/18 04:09 12/13/18 12/13/18 04:09 04:09 WBC 7.4 RBC 3.78 L Hgb 11.8 L Hct 34.8 L MCV 92 MCH 31.2 MCHC 33.9 RDW 14.6 H Plt Count 238 Sodium 138.0 Potassium 3.9 Chloride 106 Carbon Dioxide 28 Anion Gap 4 L BUN 13 Creatinine 0.77 Est GFR ( Amer) > 60 Glucose 81 Calcium 8.9 Magnesium 2.0 Total Bilirubin 0.4 AST 58 Alkaline Phosphatase 79 Total Protein 5.9 L Albumin 3.2 L 12/11/18 12/11/18 12/12/18 19:20 19:20 01:14 Creatine Kinase 305 H 1402 H CK-MB (CK-2) 6.98 H Troponin I 0.017 12/12/18 12/12/18 12/12/18 01:14 07:39 07:39 Creatine Kinase 972 H CK-MB (CK-2) 16.60 H 11.90 H Troponin I 0.033 0.030 Impressions: Head CT 12/11/18 19:27 IMPRESSION: Old left occipital infarct. No acute intracranial abnormality TECHNICAL DOCUMENTATION: Quality ID # 436: Final reports with documentation of one or more dose reduction techniques (e.g., Automated exposure control, adjustment of the mA and/or kV according to patient size, use of iterative reconstruction technique) copyright 2011 [email or web address]- All Rights Reserved Chest X-Ray 12/12/18 01:30 IMPRESSION: STABLE APPEARANCE OF THE CHEST. SUPPORT DEVICES UNCHANGED. Assessment and Plan - Diagnosis (1) AMS (altered mental status) Qualifiers: Altered mental status type: delirium Qualified Code(s): R41.0 - Disorientation, unspecified Is this a current diagnosis for this admission?: Yes Plan: Acute toxic metabolic encephalopathy due to multiple unintentional, unknown drug overdose complicated by severe hypoglycemia. Glucose on admission 38 mg/dL. Troponins 0.017, 0.033, 0.[address] head negative for any acute changes. No stroke. Old occipital infarct. Intubated on admission. Transferred to ICU. Extubated and transferred to floor. Patient is alert oriented x4, denies any focal neurological symptoms. Ambulatory, p.o. tolerant, having normal bowel bladder movements. (2) Hypoglycemia Is this a current diagnosis for this admission?: Yes Plan: Resolved. Continue hypoglycemia protocol. (3) Cocaine abuse Is this a current diagnosis for this admission?: Yes Plan: Counseled on abstinence. Monitor for withdrawals. Avoid beta-blockers. Supportive measures. (4) Acute respiratory failure Qualifiers: Respiratory failure complication: unspecified whether with hypoxia or hypercapnia Qualified Code(s): J96.00 - Acute respiratory failure, unspecified whether with hypoxia or hypercapnia Is this a current diagnosis for this admission?: Yes Plan: Resolved. Due to underlying drug overdose. Patient was intubated on admission transferred to ICU, extubated the following day. SPO2 WNL on RA. (5) Diabetes mellitus Qualifiers: Diabetes mellitus type: type 2 Is this a current diagnosis for this admission?: Yes Plan: Uncontrolled. Hemoglobin A1c 11%. Takes 70/30 at home. Ideally patient should be discharged on basal, prandial, and sliding scale i nsulin. We will consult drug abuse social worker if patient could be DC'd on above meds. Otherwise restart home meds upon discharge. Continue diabetic diet, basal, prandial, sliding scale insulin. Adjust dosage as needed. Accu-Chek. Hypoglycemic protocol. (6) Hypertension Is this a current diagnosis for this admission?: Yes Plan: Uncontrolled. Takes losartan at home. IV PRN hydralazine, lisinopril. Restart home meds upon discharge. Avoid beta-blockers due to history of cocaine abuse.
[2018-12-13] MEDS ORDERED: DEXTROSE 40% GEL 15 GM TUBE PO PRN ×2 (17:34)
[2018-12-13] MEDS ORDERED: GLUCAGON,HUMAN RECOMB 1 MG INJ IM PRN (17:34)
[2018-12-13] MEDS ORDERED: DEXTROSE 50%-WATER 25 GM/50 ML DISP.SYRIN IV PRN ×2 (17:34)
[2018-12-13] MEDS: HYDRALAZINE HCL INJ/PF 20 MG/1 ML SDV IV PRN (18:36)
[2018-12-13] MEDS: LISINOPRIL 10 MG TABLET PO SCH (18:38)
[2018-12-13] MEDS: INSULIN LISPRO 100 UNIT/ML 3 ML VIAL SUBCUT SCH (21:46)
[2018-12-14] MEDS: HEPARIN SOD (PORCINE) 5,000 UNIT/ML 1 ML VIAL SUBCUT SCH ×3 (05:17→22:26)
[2018-12-14 06:19] LABS: HEMATOCRIT 33.5 % (37.9-51.0); HEMOGLOBIN 11.3 g/dL (13.5-17.0); MEAN CORPUSCULAR HEMOGLOBIN 31.7 pg (27.0-33.4); MEAN CORPUSCULAR HGB CONC 33.7 g/dL (32.0-36.0); MEAN CORPUSCULAR VOLUME 94 fl (80-97); PLATELET COUNT 217 10^3/uL (150-450); RED BLOOD COUNT 3.56 10^6/uL (4.35-5.55); RED CELL DISTRIBUTION WIDTH 14.5 % (11.5-14.0); WHITE BLOOD COUNT 6.5 10^3/uL (4.0-10.5)
[2018-12-14] MEDS ORDERED: INSULIN LISPRO 100 UNIT/ML 3 ML VIAL ONE (07:27)
[2018-12-14] MEDS ORDERED: NORMAL SALINE 1000 ML 1,000 ML IV ONE (07:45)
[2018-12-14] MEDS ORDERED: INSULIN LISPRO 100 UNIT/ML 3 ML VIAL SUBCUT ONE ×2 (07:45→11:30)
[2018-12-14 09:55] LABS: ALBUMIN 3.7 g/dL (3.5-5.0); ALKALINE PHOSPHATASE 97 U/L (38-126); ANION GAP 14 (5-19); ASPARTATE AMINO TRANSFERASE 39 U/L (17-59); BILIRUBIN,DIRECT 0.2 mg/dL (0.0-0.4); BILIRUBIN,TOTAL 0.4 mg/dL (0.2-1.3); BLOOD UREA NITROGEN 27 mg/dL (7-20); CALCIUM 9.2 mg/dL (8.4-10.2); CARBON DIOXIDE 22 mmol/L (22-30); CHLORIDE 103 mmol/L (98-107); POTASSIUM 3.7 mmol/L (3.6-5.0); TOTAL PROTEIN 6.6 g/dL (6.3-8.2)
[2018-12-14] MEDS: THIAMINE HCL 100 MG TABLET PO SCH (10:02)
[2018-12-14 10:03] LABS: GLUCOSE 563 mg/dL (75-110)
[2018-12-14] MEDS: LOSARTAN POTASSIUM 50 MG TABLET PO SCH (10:03)
[2018-12-14] MEDS: LISINOPRIL 10 MG TABLET PO SCH (10:03)
[2018-12-14] MEDS: INSULIN LISPRO 100 UNIT/ML 3 ML VIAL SUBCUT SCH ×4 (10:06→22:28)
[2018-12-14] MEDS ORDERED: AMLODIPINE BESYLATE 10 MG TABLET PO ONE (13:43)
--- NOTE | 2018-12-14 17:09 | PDOC PROGRESS REPORT ---
Subjective Progress Note for:: 12/14/18 Subjective:: No adverse events overnight. No new complaints. Blood pressure has remained elevated. Blood sugars were in the 600s today and it took large doses of insulin to get his blood sugar into a more reasonable range. Reason For Visit: MULTIPLE DRUG OVERDOSE, RESPIRATORY ARREST, Physical Exam Vital Signs: Temp Pulse Resp BP Pulse Ox 97.8 F 77 16 180/94 H 100 12/14/18 11:33 12/14/18 11:33 12/14/18 11:33 12/14/18 11:33 12/14/18 11:33 Intake & Output 12/13/18 12/14/18 12/15/18 06:59 06:59 06:59 Intake Total 2972 657 1024 Output Total 2710 610 Balance 368 78 7150 Weight 48.7 kg General appearance: PRESENT: no acute distress, cooperative, disheveled, thin Teeth exam: PRESENT: poor dentation Respiratory exam: PRESENT: clear to auscultation baldemar, symmetrical, unlabored. ABSENT: accessory muscle use, chest wall tenderness, crackles, prolonged expiratory phas, rhonchi, tachypnea, wheezes Cardiovascular exam: PRESENT: RRR, +S1, +S2 Pulses: PRESENT: normal carotid pulses Vascular exam: PRESENT: normal capillary refill GI/Abdominal exam: PRESENT: normal bowel sounds, soft. ABSENT: distended, guarding, rebound Extremities exam: ABSENT: clubbing, pedal edema Musculoskeletal exam: PRESENT: ambulatory, normal inspection. ABSENT: deformity Neurological exam: PRESENT: alert, awake, oriented to person, oriented to place, oriented to situation Psychiatric exam: PRESENT: unusual affect Skin exam: PRESENT: dry, warm Results Laboratory Results: 12/14/18 05:41 12/14/18 09:25 12/14/18 12/14/18 12/14/18 05:41 05:41 09:25 WBC 6.5 RBC 3.56 L Hgb 11.3 L Hct 33.5 L MCV 94 MCH 31.7 MCHC 33.7 RDW 14.5 H Plt Count 217 Sodium Cancelled 139.3 Potassium Cancelled 3.7 Chloride Cancelled 103 Carbon Dioxide Cancelled 22 Anion Gap Cancelled 14 BUN Cancelled 27 H Creatinine Cancelled 1.04 Est GFR ( Amer) Cancelled > 60 Est GFR (Non-Af Amer) Cancelled Glucose Cancelled 563 H* Calcium Cancelled 9.2 Magnesium Cancelled 2.2 Total Bilirubin Cancelled 0.4 AST Cancelled 39 Alkaline Phosphatase Cancelled 97 Total Protein Cancelled 6.6 Albumin Cancelled 3.7 12/11/18 12/11/18 12/12/18 19:20 19:20 01:14 Creatine Kinase 305 H 1402 H CK-MB (CK-2) 6.98 H Troponin I 0.017 12/12/18 12/12/18 12/12/18 01:14 07:39 07:39 Creatine Kinase 972 H CK-MB (CK-2) 16.60 H 11.90 H Troponin I 0.033 0.030 Impressions: Head CT 12/11/18 19:27 IMPRESSION: Old left occipital infarct. No acute intracranial abnormality TECHNICAL DOCUMENTATION: Quality ID # 436: Final reports with documentation of one or more dose reduction techniques (e.g., Automated exposure control, adjustment of the mA and/or kV according to patient size, use of iterative reconstruction technique) copyright 2011 [employer]- All Rights Reserved Chest X-Ray 12/12/18 01:30 IMPRESSION: STABLE APPEARANCE OF THE CHEST. SUPPORT DEVICES UNCHANGED. Assessment and Plan - Diagnosis (1) AMS (altered mental status) Qualifiers: Altered mental status type: delirium Qualified Code(s): R41.0 - Disorientation, unspecified Is this a current diagnosis for this admission?: Yes Plan: Resolved (2) Acute respiratory failure Qualifiers: Respiratory failure complication: unspecified whether with hypoxia or hypercapnia Qualified Code(s): J96.00 - Acute respiratory failure, unspecified whether with hypoxia or hypercapnia Is this a current diagnosis for this admission?: Yes Plan: Resolved (3) ISELA (acute kidney injury) Is this a current diagnosis for this admission?: Yes Plan: Resolved (4) Diabetes mellitus Qualifiers: Diabetes mellitus type: type 2 Diabetes mellitus residential insulin use: with merchandising intern use Diabetes mellitus complication status: with hyperglycemia Qualified Code(s): E11.65 - Type 2 diabetes mellitus with hyperglycemia; Z79.4 - long term (current) use of insulin Is this a current diagnosis for this admission?: Yes Plan: Starting him back on his 70/30, he is also on a sliding scale (5) Hypertension Qualifiers: Hypertension type: essential hypertension Qualified Code(s): I10 - Essential (primary) hypertension Is this a current diagnosis for this admission?: Yes Plan: We have added some amlodipine. If his blood pressure and his blood sugar a little better controlled tomorrow he can go home - Time Time Spent with patient: 15-24 minutes
[2018-12-14] MEDS: HUM INSULIN NPH/REG INSULIN HM 100 UNIT/1 ML 3 ML SUBCUT SCH (17:45)
[2018-12-14] MEDS: HYDRALAZINE HCL INJ/PF 20 MG/1 ML SDV IV PRN (22:26)
[2018-12-15] MEDS: HEPARIN SOD (PORCINE) 5,000 UNIT/ML 1 ML VIAL SUBCUT SCH (05:32)
[2018-12-15] MEDS: INSULIN LISPRO 100 UNIT/ML 3 ML VIAL SUBCUT SCH ×2 (07:32→11:34)
[2018-12-15] MEDS: HUM INSULIN NPH/REG INSULIN HM 100 UNIT/1 ML 3 ML SUBCUT SCH (07:32)
[2018-12-15] MEDS ORDERED: AMLODIPINE BESYLATE 10 MG TABLET PO SCH (10:00)
[2018-12-15] MEDS: LOSARTAN POTASSIUM 50 MG TABLET PO SCH (10:00)
[2018-12-15] MEDS: THIAMINE HCL 100 MG TABLET PO SCH (10:00)
[2018-12-15 12:05] VITALS: BP 156/75
--- NOTE | 2018-12-15 15:41 | PDOC DISCHARGE SUMMARY ---
Impression - Admit/DC Date/PCP Admission Date/Primary Care Provider: 12/11/18 23:30 RY CHATTERJEE MD Discharge Date: 12/15/18 - Discharge Diagnosis (1) AMS (altered mental status) Is this a current diagnosis for this admission?: Yes (2) Acute respiratory failure Is this a current diagnosis for this admission?: Yes (3) ISELA (acute kidney injury) Is this a current diagnosis for this admission?: Yes (4) Diabetes mellitus Is this a current diagnosis for this admission?: Yes (5) Hypertension Is this a current diagnosis for this admission?: Yes - Additional Information Resuscitation Status: Full Code Discharge Diet: Diabetic Discharge Activity: Activity As Tolerated Referrals: [facility] [Outside] - 12/26/18 3:30 pm () Prescriptions: Blood Sugar Diagnostic [Blood Glucose Test] 1 each AC #90 strip Amlodipine Besylate [Norvasc 10 mg Tablet] 10 mg PO DAILY #30 tablet Home Medications: Insulin Aspart Protam & Aspart [Novolog Mix 70-30 Vial] 30 unit SQ BID 09/08/18 Losartan Potassium [Cozaar 100 mg Tablet] 100 mg PO DAILY #30 tablet 09/12/18 Thiamine HCl [Vitamin B-1] 100 mg PO DAILY 12/12/18 Amlodipine Besylate [Norvasc 10 mg Tablet] 10 mg PO DAILY #30 tablet 12/15/18 Blood Sugar Diagnostic [Blood Glucose Test] 1 each AC #90 strip 12/15/18 History of Present Illiness History of Present Illness: AMPARO PHAN is a 53 year old male who was brought to the emergency room via EMS after becoming unresponsive at home. The family indicates that the patient was witnessed "taking drugs at home" and he became unresponsive resulting in their immediate performance of CPR. EMS was also summoned and upon EMSs arrival the patient was noted to have pinpoint pupils, a pulse was present but there was no voluntary respiration. Patient was administered several ampules of Narcan and was also given D50 for a low blood sugar. After the Narcan he became extremely combative pulling out his IV's and required placement of an interosseous line by the paramedics. He also received IM Versed and IV Ativan during his transport. In the emergency room patient continued to be extremely combative and physically uncontrollable requiring restraint and subsequently resulting in his intubation. Patient is known to have a prior history of drug abuse and previous overdose and was recently hospitalized in the ICU of this facility. Patient was subsequently admitted to the ICU for further evaluation and treatment. Hospital Course Hospital Course: He was admitted to the ICU where his mental status and his respiratory status improved. He was then sent out to the floor. We had to adjust his medications to get his blood pressure under control. We got him back on his home insulin and it took a couple of days to get his blood sugar under better control. He says he does not know what it runs at home because he never checks it. He did ask for some test strips so that he can start checking his blood sugar at home. I did not change his home dose of insulin because this morning we had his blood sugar down to 120 before he got any sliding scale. We added Norvasc to his home blood pressure medication regimen. His labs and examination were reassuring he was discharged in good condition. Physical Exam Vital Signs: Temp Pulse Resp BP Pulse Ox 98.2 F 111 H 16 156/75 H 100 12/15/18 12:20 12/15/18 12:20 12/15/18 12:20 12/15/18 12:20 12/15/18 12:20 Intake & Output 12/14/18 12/15/18 12/16/18 06:59 06:59 06:59 Intake Total 657 2704 Output Total 610 Balance 47 2704 Weight 48.7 kg 48.2 kg General appearance: PRESENT: no acute distress, cooperative, disheveled, thin Teeth exam: PRESENT: poor dentation Respiratory exam: PRESENT: clear to auscultation baldemar, symmetrical, unlabored. ABSENT: accessory muscle use, chest wall tenderness, crackles, prolonged expiratory phas, rhonchi, tachypnea, wheezes Cardiovascular exam: PRESENT: RRR, +S1, +S2 Pulses: PRESENT: normal carotid pulses Vascular exam: PRESENT: normal capillary refill GI/Abdominal exam: PRESENT: normal bowel sounds, soft. ABSENT: distended, guarding, rebound Extremities exam: ABSENT: clubbing, pedal edema Musculoskeletal exam: PRESENT: ambulatory, normal inspection. ABSENT: deformity Neurological exam: PRESENT: alert, awake, oriented to person, oriented to place, oriented to situation Psychiatric exam: PRESENT: unusual affect Skin exam: PRESENT: dry, warm Results Laboratory Results: WBC 6.5 10^3/uL (4.0-10.5) 12/14/18 05:41 RBC 3.56 10^6/uL (4.35-5.55) L 12/14/18 05:41 Hgb 11.3 g/dL (13.5-17.0) L 12/14/18 05:41 Hct 33.5 % (37.9-51.0) L 12/14/18 05:41 MCV 94 fl (80-97) 12/14/18 05:41 MCH 31.7 pg (27.0-33.4) 12/14/18 05:41 MCHC 33.7 g/dL (32.0-36.0) 12/14/18 05:41 RDW 14.5 % (11.5-14.0) H 12/14/18 05:41 Plt Count 217 10^3/uL (150-450) 12/14/18 05:41 Lymph % (Auto) 15.8 % (13-45) 12/11/18 19:20 [place] % (Auto) 11.1 % (3-13) 12/11/18 19:20 Eos % (Auto) 0.5 % (0-6) 12/11/18 19:20 Baso % (Auto) 0.7 % (0-2) 12/11/18 19:20 Absolute Neuts (auto) 3.6 10^3/uL (1.7-8.2) 12/11/18 19:20 Absolute Lymphs (auto) 0.8 10^3/uL (0.5-4.7) 12/11/18 19:20 Absolute Monos (auto) 0.6 10^3/uL (0.1-1.4) 12/11/18 19:20 Absolute Eos (auto) 0.0 10^3/uL (0.0-0.6) 12/11/18 19:20 Absolute Basos (auto) 0.0 10^3/uL (0.0-0.2) 12/11/18 19:20 Seg Neutrophils % 71.9 % (42-78) 12/11/18 19:20 Carbonic Acid 0.65 mmol/L (1.05-1.35) L 12/12/18 03:15 HCO3/H2CO3 Ratio 28:1 12/12/18 03:15 ABG pH 7.55 (7.35-7.45) H 12/12/18 03:15 ABG pCO2 21.7 mmHg (35-45) L 12/12/18 03:15 ABG pO2 181.3 mmHg (80-100) H 12/12/18 03:15 ABG HCO3 18.7 mmol/L (20-24) L 12/12/18 03:15 ABG Total CO2 19.4 mmol/L (23-27) L 12/12/18 03:15 ABG O2 Saturation 99.4 % (94-98) H 12/12/18 03:15 ABG Base Excess -2.2 mmol/L 12/12/18 03:15 FiO2 35% 12/12/18 03:15 Sodium 139.3 mmol/L (137-145) 12/14/18 09:25 Potassium 3.7 mmol/L (3.6-5.0) 12/14/18 09:25 Chloride 103 mmol/L (98-107) 12/14/18 09:25 Carbon Dioxide 22 mmol/L (22-30) 12/14/18 09:25 Anion Gap 14 (5-19) 12/14/18 09:25 BUN 27 mg/dL (7-20) H 12/14/18 09:25 Creatinine 1.04 mg/dL (0.52-1.25) 12/14/18 09:25 Est GFR ( Amer) > 60 (>60) 12/14/18 09:25 Est GFR (Non-Af Amer) Cancelled 12/14/18 05:41 Est GFR (MDRD) Non-Af > 60 (>60) 12/14/18 09:25 Glucose 563 mg/dL (75-110) H* 12/14/18 09:25 POC Glucose 123 mg/dL (70-110) H 12/15/18 10:51 Lactic Acid 2.1 mmol/L (0.7-2.1) 12/11/18 19:20 Calcium 9.2 mg/dL (8.4-10.2) 12/14/18 09:25 Magnesium 2.1 mg/dL (1.6-2.3) 12/15/18 04:05 Total Bilirubin 0.4 mg/dL (0.2-1.3) 12/14/18 09:25 Direct Bilirubin 0.2 mg/dL (0.0-0.4) 12/14/18 09:25 Neonat Total Bilirubin Not Reportable 12/14/18 09:25 Neonat Direct Bilirubin Not Reportable 12/14/18 09:25 Neonat Indirect Bili Not Reportable 12/14/18 09:25 AST 39 U/L (17-59) 12/14/18 09:25 ALT 37 U/L (<50) 12/14/18 09:25 Alkaline Phosphatase 97 U/L (38-126) 12/14/18 09:25 Creatine Kinase 972 U/L (55-170) H 12/12/18 07:39 CK-MB (CK-2) 11.90 ng/mL (<4.55) H 12/12/18 07:39 Troponin I 0.030 ng/mL 12/12/18 07:39 Total Protein 6.6 g/dL (6.3-8.2) 12/14/18 09:25 Albumin 3.7 g/dL (3.5-5.0) 12/14/18 09:25 Triglycerides 48 mg/dL (<150) 12/12/18 07:39 EGFR Cancelled 12/14/18 05:41 Urine Color STRAW 12/11/18 20:00 Urine Appearance CLEAR 12/11/18 20:00 Urine pH 7.0 (5.0-9.0) 12/11/18 20:00 Ur Specific [place] 1.008 12/11/18 20:00 Urine Protein 100 mg/dL (NEGATIVE) H 12/11/18 20:00 Urine Glucose (UA) >=500 mg/dL (NEGATIVE) H 12/11/18 20:00 Urine Ketones NEGATIVE mg/dL (NEGATIVE) 12/11/18 20:00 Urine Blood SMALL (NEGATIVE) H 12/11/18 20:00 Urine Nitrite NEGATIVE (NEGATIVE) 12/11/18 20:00 Urine Bilirubin NEGATIVE (NEGATIVE) 12/11/18 20:00 Urine Urobilinogen NEGATIVE mg/dL (<2.0) 12/11/18 20:00 Ur Leukocyte Esterase NEGATIVE (NEGATIVE) 12/11/18 20:00 Urine WBC (Auto) 2 /HPF 12/11/18 20:00 Urine RBC (Auto) 5 /HPF 12/11/18 20:00 U Hyaline Cast (Auto) 0-1 /LPF 12/11/18 20:00 Urine Bacteria (Auto) TRACE /HPF 12/11/18 20:00 Urine Ascorbic Acid NEGATIVE (NEGATIVE) 12/11/18 20:00 Salicylates < 1.0 mg/dL (2.0-20.0) L 12/11/18 19:20 Urine Opiates Screen NEGATIVE 12/11/18 20:00 Urine Methadone Screen NEGATIVE 12/11/18 20:00 Acetaminophen < 10 ug/mL (10-30) L 12/11/18 19:20 Ur Barbiturates Screen NEGATIVE 12/11/18 20:00 Ur Phencyclidine Scrn NEGATIVE 12/11/18 20:00 Ur Amphetamines Screen NEGATIVE 12/11/18 20:00 U Benzodiazepines Scrn UNCONFIRMED POSITIVE 12/11/18 20:00 Urine Cocaine Screen UNCONFIRMED POSITIVE 12/11/18 20:00 U Marijuana (THC) Screen NEGATIVE 12/11/18 20:00 Serum Alcohol < 10 mg/dL (NONE DETECTED) 12/11/18 19:20 12/11/18 12/12/18 12/12/18 19:20 01:14 07:39 CK-MB (CK-2) 6.98 H 16.60 H 11.90 H Troponin I 0.017 0.033 0.030 Impressions: Chest X-Ray 12/11/18 19:27 IMPRESSION: Endotracheal and enteric tubes in place. Underlying hyperinflation. Chronic blunting of the right costophrenic angle may reflect chronic tiny effusion and/or pleural thickening copyright 2011 [employer]- All Rights Reserved Head CT 12/11/18 19:27 IMPRESSION: Old left occipital infarct. No acute intracranial abnormality TECHNICAL DOCUMENTATION: Quality ID # 436: Final reports with documentation of one or more dose reduction techniques (e.g., Automated exposure control, adjustment of the mA and/or kV according to patient size, use of iterative reconstruction technique) copyright 2010 [employer]- All Rights Reserved Chest X-Ray 12/12/18 01:30 IMPRESSION: STABLE APPEARANCE OF THE CHEST. SUPPORT DEVICES UNCHANGED. Plan Time Spent: Greater than 30 Minutes Stroke Is this a Stroke Patient?: No Acute Heart Failure - Is this a Heart Failure Patient?: No
== END 2018-12-15 13:15 | disposition home or self-care (01) | DRG 917 ==
LOC: ER 19:15 → EH 23:30 → ICU 12-12 01:00 → 4N 12-13 14:39
PROVIDERS: ADMIT Emergency Medicine; ATTEND Anesthesiology
PROC: 5A1935Z Respiratory Ventilation, Less than 24 Consecutive Hours (ICD-10-PCS; principal; 2018-12-11)
PROC: 0BH17EZ Insertion of Endotracheal Airway into Trachea, Via Natural or Artificial Opening (ICD-10-PCS; 2018-12-11)
DX: T50.911A Poisoning by multiple unspecified drugs, medicaments and biological substances, accidental (unintentional), initial encounter (principal); J96.00 Acute respiratory failure, unspecified whether with hypoxia or hypercapnia; G92 Toxic encephalopathy; N17.9 Acute kidney failure, unspecified; F05 Delirium due to known physiological condition; I50.30 Unspecified diastolic (congestive) heart failure; E11.649 Type 2 diabetes mellitus with hypoglycemia without coma; I11.0 Hypertensive heart disease with heart failure; F14.10 Cocaine abuse, uncomplicated; F19.10 Other psychoactive substance abuse, uncomplicated; R45.1 Restlessness and agitation; K02.9 Dental caries, unspecified; E11.65 Type 2 diabetes mellitus with hyperglycemia; F10.20 Alcohol dependence, uncomplicated; Z71.51 Drug abuse counseling and surveillance of drug abuser; Z91.19 Patient's noncompliance with other medical treatment and regimen; Z83.3 Family history of diabetes mellitus; Z82.49 Family history of ischemic heart disease and other diseases of the circulatory system; Z79.4 Long term (current) use of insulin
CPT/HCPCS: 36415; 51702; 70450; 71045; 80053; 80307; 81001; 82550; 82553; 82803; 82962; 83605; 83735; 84478; 84484; 85025; 85027; 87040; 93005; 93010; 94002; 94003; 96365; 96368; 96375; 96376; 99291; 99292; J0330; J0360; J1200; J1630; J1644; J1815; J2060; J2250; J2270; J2560; J2704; J3480; J3490; J7030; J7120; J7121

== ENCOUNTER → 2019-04-19 | Outpatient (CLI) | payer OTHER, MEDICAID ==
[2019-04-19 11:35] LABS: ABSOLUTE BASOPHILS # (AUTO) 0.1 10^3/uL (0.0-0.2); ABSOLUTE EOSINOPHILS # (AUTO) 0.1 10^3/uL (0.0-0.6); ABSOLUTE LYMPHOCYTES (AUTO) 1.3 10^3/uL (0.5-4.7); ABSOLUTE MONOCYTES (AUTO) 0.5 10^3/uL (0.1-1.4); ABSOLUTE NEUT (AUTO) 3.3 10^3/uL (1.7-8.2); EOSINOPHILS % (AUTO) 1.2 % (0-6); HEMATOCRIT 38.4 % (37.9-51.0); LYMPHOCYTES % (AUTO) 24.9 % (13-45); MEAN CORPUSCULAR HEMOGLOBIN 32.5 pg (27.0-33.4); MEAN CORPUSCULAR HGB CONC 33.9 g/dL (32.0-36.0); MEAN CORPUSCULAR VOLUME 96 fl (80-97); MONOCYTES % (AUTO) 8.9 % (3-13); PLATELET COUNT 192 10^3/uL (150-450); RED BLOOD COUNT 4.01 10^6/uL (4.35-5.55); RED CELL DISTRIBUTION WIDTH 14.2 % (11.5-14.0); TOTAL CELLS COUNTED % (AUTO) 100 %; WHITE BLOOD COUNT 5.1 10^3/uL (4.0-10.5)
[2019-04-19 11:46] LABS: INTERNATIONAL RATION (INR) 0.77; PROTHROMBIN TIME 10.7 SEC (11.4-15.4)
[2019-04-19 12:07] LABS: ALKALINE PHOSPHATASE 136 U/L (38-126); ANION GAP 9 (5-19); ASPARTATE AMINO TRANSFERASE 88 U/L (17-59); BILIRUBIN,DIRECT 0.1 mg/dL (0.0-0.4); BILIRUBIN,TOTAL 0.4 mg/dL (0.2-1.3); BLOOD UREA NITROGEN 22 mg/dL (7-20); CALCIUM 9.7 mg/dL (8.4-10.2); CARBON DIOXIDE 30 mmol/L (22-30); CHLORIDE 96 mmol/L (98-107); CHOLESTEROL 161.65 mg/dL (0-200); GLUCOSE 284 mg/dL (75-110); POTASSIUM 5.1 mmol/L (3.6-5.0); TOTAL PROTEIN 7.1 g/dL (6.3-8.2); TRIGLYCERIDES 103 mg/dL (<150)
[2019-04-19 12:21] LABS: DIRECT LDL 72 mg/dL (<100)
--- NOTE | 2019-04-19 17:24 | EKG REPORT ---
SEVERITY:- ABNORMAL ECG - SINUS RHYTHM PROBABLE LEFT ATRIAL ABNORMALITY LEFT VENTRICULAR HYPERTROPHY ANTERIOR Q WAVES, POSSIBLY DUE TO LVH : Confirmed by: Fede Toure 19-Apr-2019 17:24:05
== END ==
LOC: CCC 10:46
DX: Z01.812 Encounter for preprocedural laboratory examination (principal); E11.8 Type 2 diabetes mellitus with unspecified complications
CPT/HCPCS: 36415; 80053; 80061; 83036; 83735; 85025; 85610; 93005; 93010

== ENCOUNTER 2019-06-15 12:27 | Inpatient (IN) | payer MEDICAID, OTHER ==
[2019-06-15] MEDS ORDERED: NORMAL SALINE 1000 ML 1,000 ML IV ONE ×2 (13:02→14:31)
--- NOTE | 2019-06-15 13:09 | ER Document Report ---
ED General - General Chief Complaint: High Blood Sugar Stated Complaint: BLOOD SUGAR ISSUES Time Seen by Provider: 06/15/19 12:44 Primary Care Provider: [facility] [Primary Care Provider] - Follow up as needed Mode of Arrival: Medic Information source: Patient, Emergency Med Personnel Cannot obtain history due to: Uncooperative Notes: Patient is a 53-year-old male brought into the emergency department via EMS chief complaint of altered mental status and elevated blood glucose level. Family states that the patient is very noncompliant with medications he normally gets irritable and altered when his blood sugar is high. Family state that they did get a blood glucose level at home registered as high as did EMS. On presen tation to the emergency department the patient is irritable is very uncooperative with information for HPI and begrudgingly gives out very sparse information. Patient states he has been taking his medication sometimes. On presentation patient has multiple ecchymotic areas and multiple superficial abrasions when asked if he has fallen patient is quite irritated and states that he does not know. Remainder of history of present illness and review of systems is questionable secondary to patient's lack of cooperation. TRAVEL OUTSIDE OF THE [place] IN LAST 30 DAYS: No - HPI Onset: Last week Onset/Duration: Gradual, Worse Quality of pain: Achy Severity: Moderate Pain Level: 2 Associated symptoms: Slow to respond, Weakness Exacerbated by: Movement Relieved by: Denies Similar symptoms previously: Yes Recently seen / treated by doctor: No - Related Data Allergies/Adverse Reactions: No Known Allergies Allergy (Verified 06/08/17 20:19) Past Medical History - General Information source: Patient, [facility] Records - Social History Smoking Status: Current Every Day Smoker Cigarette use (# per day): Yes Chew tobacco use (# tins/day): No Smoking Education Provided: Yes Frequency of alcohol use: None Drug Abuse: None Lives with: Family Family History: DM, Hypertension. denies: CAD, Malignancy Patient has homicidal ideation: No - Past Medical History Cardiac Medical History: Reports: Hx Congestive Heart Failure - Diastolic, Hx Hypertension Pulmonary Medical History: Denies: Hx Asthma, Hx COPD, Hx Respiratory Failure Neurological Medical History: Denies: Hx Seizures Endocrine Medical History: Reports: Hx Diabetes Mellitus Type 1, Hx Diabetes Mellitus Type 2. Denies: Hx Hyperthyroidism, Hx Hypothyroidism Renal/ Medical History: Reports: Hx Renal Insufficiency. Denies: Hx Peritoneal Dialysis GI Medical History: Denies: Hx Cirrhosis, Hx Crohn's Disease, Hx Gastroesophageal Reflux Disease, Hx Hepatitis, Hx Ulcerative Colitis Musculoskeletal Medical History: Denies Hx Arthritis, Denies Hx Fibromyalgia, Denies Hx Gout Skin Medical History: Denies Hx Eczema, Denies Hx Psoriasis Psychiatric Medical History: Denies: Hx Depression Infectious Medical History: Denies: Hx Hepatitis Past Surgical History: Reports: Other - Denies any recent surgery Review of Systems - Review of Systems Notes: REVIEW OF SYSTEMS: Review of systems is questionable secondary to patient condition however patient does not have any complaints other than is tired of being asked questions. CONSTITUTIONAL : Denies fever, chills, or sweats. Denies recent illness. EENT: Denies eye, ear, throat, or mouth pain or symptoms. Denies nasal or sinus congestion. CARDIOVASCULAR: Denies chest pain. RESPIRATORY: Denies cough, cold, or chest congestion. Denies shortness of breath, difficulty breathing, or wheezing. GASTROINTESTINAL: Denies abdominal pain. Denies nausea, vomiting, or diarrhea. Denies constipation. GENITOURINARY: Denies difficulty urinating, painful urination, burning, frequency, or blood in urine. MUSCULOSKELETAL: Denies neck or back pain or joint pain or swelling. SKIN: Denies rash or skin lesions. HEMATOLOGIC : Denies easy bruising or bleeding. NEUROLOGICAL: Denies altered mental status or loss of consciousness. Denies headache. Denies weakness or paralysis or loss of use of either side. Denies problems with gait or speech. Denies sensory or motor loss. PSYCHIATRIC: Denies suicidal or homicidal ideations 10 Systems are negative unless otherwise specified above Physical Exam - Vital signs Vitals: Temp 97.5 F 06/15/19 12:28 - Notes Notes: PHYSICAL EXAMINATION: GENERAL: Patient is a 53-year-old cachectic individual looking older than stated age uncooperative with both HPI review of systems as well as physical exam. HEAD: Atraumatic, normocephalic. EYES: Pupils equal round and reactive to light, extraocular movements intact, sclera anicteric, conjunctiva are normal. ENT: nares patent, oropharynx clear without exudates. Dry mucous membranes. NECK: Normal range of motion, supple without lymphadenopathy, no appreciable JVD LUNGS: Lungs clear to auscultation bilaterally and equal. No wheezes rales or rhonchi. HEART: Tachycardic rate and rhythm without murmurs ABDOMEN: Soft, scaphoid nontender, normal bowel sounds. No guarding, no rebound. No masses appreciated. EXTREMITIES: Active full range of motion, no pitting or edema. No cyanosis. 2+ pulses x4 NEUROLOGICAL: No focal neurological deficits. Moves all extremities spontaneously and on command. SKIN: Warm, dry there is multiple areas of ecchymosis to upper and lower extremities there is various abrasions diffusely most notably to the left patella. Course - Re-evaluation Re-evalutation: 06/15/19 14:13 On review of patient's laboratory studies patient has been found to be hyperkalemic in DKA and is cocaine positive on urine drug screen. Patient will receive calcium gluconate followed by insulin and Kayexalate for management of the hyperkalemia DKA will be addressed also with the insulin and sodium bicarbonate as well as patient has received 2 L of fluids as of now. Insulin drip will be initiated. Patient will be consulted to the hospitalist for admission. 06/15/19 15:52 Patient has been maintained on a senior specialist while in emergency department patient has remained at baseline however patient did pull out his IV repeat IV access was accomplished by nursing staff. 18-gauge was successfully placed. Patient has received a total of 3 L of IV normal saline, medications as previously described for hyperkalemia and diabetic ketoacidosis. Patient has been consulted to the stippler for admission. - Vital Signs Vital signs: Temp Pulse Resp BP Pulse Ox 97.5 F 15 116/61 100 06/15/19 12:28 06/15/19 13:01 06/15/19 13:01 06/15/19 13:01 - Laboratory Result Diagrams: 06/15/19 11:55 06/15/19 11:55 Laboratory results interpreted by me: 06/15/19 06/15/19 06/15/19 11:55 11:55 11:55 RBC 3.89 L Hgb 13.1 L MCV 110 H MCH 33.6 H MCHC 30.4 L RDW 15.3 H Lymph % (Auto) 7.1 L Seg Neutrophils % 86.8 H VBG pH VBG pCO2 VBG HCO3 Sodium 124.4 L Potassium 7.2 H* Chloride 82 L Carbon Dioxide 8 L* Anion Gap 34 H BUN 62 H Creatinine 2.57 H Est GFR ( Amer) 32 L Est GFR (MDRD) Non-Af 26 L Glucose 1233 H* POC Glucose Hemoglobin A1c % 10.8 H Lactic Acid Calcium 10.3 H Magnesium Alkaline Phosphatase 130 H Creatine Kinase 27 L Urine Protein Urine Glucose (UA) Urine Ketones 06/15/19 06/15/19 06/15/19 11:55 12:35 12:55 RBC Hgb MCV MCH MCHC RDW Lymph % (Auto) Seg Neutrophils % VBG pH VBG pCO2 VBG HCO3 Sodium Potassium Chloride Carbon Dioxide Anion Gap BUN Creatinine Est GFR ( Amer) Est GFR (MDRD) Non-Af Glucose POC Glucose > 550 H* Hemoglobin A1c % Lactic Acid Calcium Magnesium 2.8 H Alkaline Phosphatase Creatine Kinase Urine Protein 30 H Urine Glucose (UA) >=500 H Urine Ketones 20 H 06/15/19 06/15/19 13:19 13:19 RBC Hgb MCV MCH MCHC RDW Lymph % (Auto) Seg Neutrophils % VBG pH 7.00 L* VBG pCO2 27.2 L VBG HCO3 6.6 L Sodium Potassium Chloride Carbon Dioxide Anion Gap BUN Creatinine Est GFR ( Amer) Est GFR (MDRD) Non-Af Glucose POC Glucose Hemoglobin A1c % Lactic Acid 3.5 H Calcium Magnesium Alkaline Phosphatase Creatine Kinase Urine Protein Urine Glucose (UA) Urine Ketones - Diagnostic Test Radiology reviewed: Reports reviewed Critical Care Note - Critical Care Note Total time excluding time spent on procedures (mins): 40 Comments: Please allow 40 minutes of critical care time spent obtaining history from patient or surrogate, discussions with consultants, development of treatment plan with patient or surrogate, evaluation of patient's response to treatment, examination of patient. This also includes ordering and reviewing laboratory, EKG and / or radiologic studies, performing and reassessing treatments and interventions as well as reviewing previous visits and old charts. This is exclusive of separately billable procedures. Discharge - Discharge Clinical Impression: Hyperkalemia, Medically noncompliant, Cocaine abuse DKA (diabetic ketoacidoses) Qualifiers: Diabetes mellitus type: other specified (including KENDRA) Diabetes mellitus complication detail: without coma Qualified Code(s): E13.10 - Other specified diabetes mellitus with ketoacidosis without coma Altered mental status Qualifiers: Altered mental status type: somnolence Qualified Code(s): R40.0 - Somnolence Condition: Fair Disposition: ADMITTED INPATIENT Admitting Provider: Fito (Knitting [facility] Fixer Head) Unit Admitted: ICU Referrals: [facility] [Primary Care Provider] - Follow up as needed
[2019-06-15 13:11] LABS: APPEARANCE,URINE SLIGHTLY-CLOUDY; BILIRUBIN,URINE NEGATIVE (NEGATIVE); COLOR,URINE YELLOW; GLUCOSE, URINE >=500 mg/dL (NEGATIVE); KETONES,URINE 20 mg/dL (NEGATIVE); LEUKOCYTE ESTERASE,URINE NEGATIVE (NEGATIVE); NITRITE,URINE NEGATIVE (NEGATIVE); PROTEIN,URINE 30 mg/dL (NEGATIVE); UROBILINOGEN,URINE NEGATIVE mg/dL (<2.0)
[2019-06-15 13:23] LABS: ABSOLUTE LYMPHOCYTES (AUTO) 0.6 10^3/uL (0.5-4.7); ABSOLUTE MONOCYTES (AUTO) 0.5 10^3/uL (0.1-1.4); ABSOLUTE NEUT (AUTO) 7.6 10^3/uL (1.7-8.2); BASOPHILS % (AUTO) 0.6 % (0-2); EOSINOPHILS % (AUTO) 0.2 % (0-6); HEMATOCRIT 42.9 % (37.9-51.0); HEMOGLOBIN 13.1 g/dL (13.5-17.0); LYMPHOCYTES % (AUTO) 7.1 % (13-45); MEAN CORPUSCULAR HEMOGLOBIN 33.6 pg (27.0-33.4); MEAN CORPUSCULAR HGB CONC 30.4 g/dL (32.0-36.0); MEAN CORPUSCULAR VOLUME 110 fl (80-97); MONOCYTES % (AUTO) 5.3 % (3-13); PLATELET COUNT 311 10^3/uL (150-450); RED BLOOD COUNT 3.89 10^6/uL (4.35-5.55); RED CELL DISTRIBUTION WIDTH 15.3 % (11.5-14.0); SEGMENTED NEUTROPHILS % (AUTO) 86.8 % (42-78); TOTAL CELLS COUNTED % (AUTO) 100 %; WHITE BLOOD COUNT 8.7 10^3/uL (4.0-10.5)
[2019-06-15 13:27] LABS: VENOUS BLOOD BASE EXCESS -23.5 mmol/L; VENOUS BLOOD HCO3 6.6 mmol/L (20-32); VENOUS BLOOD PCO2 27.2 mmHg (35-63)
[2019-06-15 13:27] LABS: INTERNATIONAL RATION (INR) 0.96; PROTHROMBIN TIME 12.8 SEC (11.4-15.4)
[2019-06-15 13:39] LABS: ANISOCYTOSIS SLIGHT; BURR CELLS 1+; POIKILOCYTOSIS 1+
[2019-06-15 13:40] LABS: ALBUMIN 4.3 g/dL (3.5-5.0); ALKALINE PHOSPHATASE 130 U/L (38-126); ASPARTATE AMINO TRANSFERASE 30 U/L (17-59); BILIRUBIN,DIRECT 0.1 mg/dL (0.0-0.4); BILIRUBIN,TOTAL 0.5 mg/dL (0.2-1.3); BLOOD UREA NITROGEN 62 mg/dL (7-20); CALCIUM 10.3 mg/dL (8.4-10.2); CREATINE KINASE 27 U/L (55-170); TOTAL PROTEIN 7.1 g/dL (6.3-8.2)
[2019-06-15 13:43] LABS: OVALOCYTES 1+; PLATELET COMMENT ADEQUATE
[2019-06-15 13:46] LABS: CHLORIDE 82 mmol/L (98-107)
[2019-06-15 13:50] LABS: URINE AMPHETAMINES SCREEN NEGATIVE; URINE BARBITURATES SCREEN NEGATIVE; URINE BENZODIAZEPINES SCREEN NEGATIVE; URINE MARIJUANA (THC) SCREEN NEGATIVE; URINE METHADONE SCREEN NEGATIVE; URINE PHENCYCLIDINE SCREEN NEGATIVE
[2019-06-15 13:51] LABS: URINE COCAINE SCREEN UNCONFIRMED POSITIVE
[2019-06-15 13:57] LABS: ANION GAP 34 (5-19); CARBON DIOXIDE 8 mmol/L (22-30); GLUCOSE 1233 mg/dL (75-110); POTASSIUM 7.2 mmol/L (3.6-5.0)
[2019-06-15] MEDS ORDERED: CALCIUM GLUCONATE 1000 MG/10 ML INJ IV ONE (14:10)
[2019-06-15] MEDS ORDERED: INSULIN REG, HUMAN 100 UNIT/ML 3 ML VIAL (PYX) IV ONE ×2 (14:10→14:32)
[2019-06-15] MEDS ORDERED: DEXTROSE 5%-WATER 1000 ML 1,000 ML with SODIUM BICARBONATE 100 MEQ IV PRN ×2 (14:11)
[2019-06-15] MEDS ORDERED: SODIUM POLYSTYRENE SULFONATE 15 GM/60 ML PO ONE (14:11)
--- NOTE | 2019-06-15 14:29 | RADIOLOGY REPORT (SQ) ---
EXAM DESCRIPTION: CHEST SINGLE VIEW IMAGES COMPLETED DATE/TIME: 06/15/2019 1:36 pm REASON FOR STUDY: sob COMPARISON: 12/12/2018 NUMBER OF VIEWS: One view. TECHNIQUE: Single frontal radiographic view of the chest acquired. LIMITATIONS: None. FINDINGS: LUNGS AND PLEURA: No opacities, masses or pneumothorax. No pleural effusion. MEDIASTINUM AND HILAR STRUCTURES: No masses. Contour normal. HEART AND VASCULAR STRUCTURES: Heart normal in size. Normal vasculature. BONES: No acute findings. HARDWARE: None in the chest. OTHER: No other significant finding. IMPRESSION: NO SIGNIFICANT RADIOGRAPHIC FINDING IN THE CHEST. TECHNICAL DOCUMENTATION: JOB ID: [id number] 2010 [employer]- All Rights Reserved Reading location - IP/workstation name: [email or web address]
[2019-06-15] MEDS ORDERED: SODIUM BICARBONATE 8.4% INJ 50 MEQ/50 ML DISP.SYRIN IV ONE (14:35)
[2019-06-15] MEDS ORDERED: DEXTROSE 50%-WATER 25 GM/50 ML DISP.SYRIN IV PRN ×2 (17:24)
[2019-06-15] MEDS ORDERED: DEXTROSE 40% GEL 15 GM TUBE PO PRN ×2 (17:24)
[2019-06-15] MEDS ORDERED: GLUCAGON,HUMAN RECOMB 1 MG INJ IM PRN (17:24)
[2019-06-15] MEDS ORDERED: NORMAL SALINE 100 ML with INSULIN REGULAR, HUMAN 100 UNIT IV PRN ×2 (17:45)
[2019-06-15 18:17] LABS: PHOSPHORUS 6.4 mg/dL (2.5-4.5)
[2019-06-15 18:18] LABS: BLOOD UREA NITROGEN 57 mg/dL (7-20); CALCIUM 9.6 mg/dL (8.4-10.2)
[2019-06-15 18:23] LABS: CHLORIDE 93 mmol/L (98-107)
[2019-06-15 18:46] LABS: ANION GAP 31 (5-19)
[2019-06-15 18:49] LABS: CARBON DIOXIDE 9 mmol/L (22-30)
[2019-06-15 18:50] LABS: INTERNATIONAL RATION (INR) 0.91; PARTIAL THROMBOPLASTIN TIME 20.6 SEC (23.5-35.8); PROTHROMBIN TIME 12.3 SEC (11.4-15.4)
[2019-06-15 18:50] LABS: GLUCOSE 871 mg/dL (75-110)
[2019-06-15 18:57] LABS: POTASSIUM 4.6 mmol/L (3.6-5.0)
[2019-06-15] MEDS: NORMAL SALINE 1000 ML 1,000 ML IV PRN ×4 (18:59→23:57)
[2019-06-15] MEDS: PANTOPRAZOLE SODIUM 40 MG VIAL IV SCH (19:00)
--- NOTE | 2019-06-15 20:11 | CRITICAL CARE ADMISSION REPORT ---
HPI Date:: 06/15/19 Time:: 17:07 Reason for ICU Reason:: DKA HPI: This 53-year-old male scented to [facility] emergency department with complaints of generalized weakness. He denies fever. He denies nausea, vomiting or abdominal pain. He denies chest pain. He denies shortness of breath. He denies cough or sputum production. He denies sick contacts. Patient reports that he knows that he is diabetic. He also admits that he is noncompliant with prescribed therapy. In the emergency department, the patient was found to have a serum glucose > 1200 with an elevated anion gap and hyperkalemia (K > 7). Of note, the patient is a poor historian. He is cantankerous and short tempered. He is not forthcoming about illicit drug abuse (cocaine, marijuana), tobacco abuse and alcohol abuse but does admit to these habits when asked directly. History obtained from:: Patient - Diagnosis/Plan (1) DKA (diabetic ketoacidoses) Qualifiers: Diabetes mellitus type: type 2 Diabetes mellitus complication detail: without coma Qualified Code(s): E11.10 - Type 2 diabetes mellitus with ketoacidosis without coma Is this a current diagnosis for this admission?: Yes Plan: DKA management per protocol (intravenous fluids, insulin infusion, serial chemistries with magnesium and phosphorus). Check troponin. Twelve-lead EKG. Blood cultures. Urine culture. (2) Hyperkalemia Is this a current diagnosis for this admission?: Yes Plan: Patient has already received temporizing measures for hyperkalemia in the emergency department. Initial strategy for treatment of DKA will focus on intravenous fluid resuscitation, which should also be helpful for his hyperkalemia. Twelve-lead EKG. (3) Cocaine abuse Is this a current diagnosis for this admission?: Yes (4) Medically noncompliant Is this a current diagnosis for this admission?: Yes (5) ISELA (acute kidney injury) Is this a current diagnosis for this admission?: Yes (6) Abnormal liver function test Is this a current diagnosis for this admission?: Yes (7) Acute diarrhea Is this a current diagnosis for this admission?: Yes (8) AMS (altered mental status) Qualifiers: Altered mental status type: delirium Qualified Code(s): R41.0 - Disorientation, unspecified Is this a current diagnosis for this admission?: Yes (9) Skin lesions, generalized Is this a current diagnosis for this admission?: Yes Plan: 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 Past Medical History Cardiac Medical History: Reports: Congestive Heart Failure - Diastolic, Hypertension Pulmonary Medical History: Denies: Asthma, Chronic Obstructive Pulmonary Disease (COPD), Respiratory Failure Neurological Medical History: Denies: Seizures Endocrine Medical History: Reports: Diabetes Mellitus Type 1, Diabetes Mellitus Type 2 Denies: Hyperthyroidism, Hypothyroidism GI Medical History: Denies: Cirrhosis, Crohn's Disease, Gastroesophageal Reflux Disease, Hepatitis, Ulcerative Colitis Musculoskeltal Medical History: Denies: Arthritis, Fibromyalgia, Gout Skin Medical History: Denies: Eczema, Psoriasis Psychiatric Medical History: Denies: Depression Hematology: Denies: Anemia, Bleeding Tendencies Past Surgical History Past Surgical History: Reports: Other - Denies any recent surgery Social/Family History - Social History Lives with: Family Smoking Status: Current Every Day Smoker Frequency of Alcohol Use: Heavy Hx Recreational Drug Use: Yes Drugs: Cocaine, Other Hx Prescription Drug Abuse: No - Medication/Allergies Home Medications: Insulin Aspart Protam & Aspart [Novolog Mix 70-30 Vial] 30 unit SQ BID 09/08/18 Gabapentin 300 mg PO QID 06/15/19 Losartan Potassium [Cozaar 100 mg Tablet] 50 mg PO DAILY 06/15/19 Allergies/Adverse Reactions: No Known Allergies Allergy (Verified 06/08/17 20:19) Review of Systems Constitutional: PRESENT: fatigue, weakness, weight loss. ABSENT: chills, fever(s), headache(s), night sweats Cardiovascular: ABSENT: chest pain, edema, orthropnea Respiratory: ABSENT: cough, dyspnea, sputum Gastrointestinal: PRESENT: as per HPI Genitourinary: ABSENT: difficulty urinating, dysuria, hematuria Musculoskeletal: PRESENT: muscle weakness. ABSENT: deformity, joint swelling Neurological: PRESENT: paresthesias, tingling Psychiatric: ABSENT: homidical ideation, suicidal ideation Endocrine: PRESENT: polydipsia, polyuria. ABSENT: cold intolerance, heat intolerance Physical Exam Vital Signs: Temp Pulse Resp BP Pulse Ox 97.5 F 18 146/105 H 100 06/15/19 12:28 06/15/19 17:01 06/15/19 17:01 06/15/19 17:01 Intake & Output 06/14/19 06/15/19 06/16/19 06:59 06:59 06:59 Intake Total 1999 Balance 2000 Weight 40 kg Weight/Height Weight 40 kg Height 1.73 m General appearance: PRESENT: no acute distress, thin, other - Sky ill appearance. ABSENT: cooperative Eye exam: PRESENT: conjunctiva pink, EOMI, PERRLA. ABSENT: scleral icterus Ear exam: PRESENT: normal external ear exam Neck exam: ABSENT: carotid bruit, JVD, lymphadenopathy, thyromegaly Respiratory exam: PRESENT: clear to auscultation baldemar. ABSENT: rales, rhonchi, wheezes Cardiovascular exam: PRESENT: RRR. ABSENT: diastolic murmur, rubs, systolic murmur Pulses: PRESENT: normal dorsalis pedis pul GI/Abdominal exam: PRESENT: normal bowel sounds, soft. ABSENT: distended, guarding, mass, organolmegaly, rebound, tenderness Extremities exam: PRESENT: full ROM. ABSENT: calf tenderness, clubbing, pedal edema Musculoskeletal exam: PRESENT: normal inspection. ABSENT: deformity Neurological exam: PRESENT: alert, awake, oriented to person, oriented to place, oriented to time, oriented to situation, CN II-XII grossly intact. ABSENT: motor sensory deficit Psychiatric exam: PRESENT: agitated Skin exam: PRESENT: dry, intact, rash - Necrobiosis lipoidica diabeticorum?, warm. ABSENT: cyanosis Laboratory/Radiographs Laboratory Results: 06/15/19 11:55 06/15/19 11:55 06/15/19 06/15/19 06/15/19 11:55 11:55 11:55 WBC 8.7 RBC 3.89 L Hgb 13.1 L Hct 42.9 MCV 110 H MCH 33.6 H MCHC 30.4 L RDW 15.3 H Plt Count 311 Seg Neutrophils % 86.8 H VBG pH VBG pCO2 VBG HCO3 VBG Base Excess Sodium 124.4 L Potassium 7.2 H* Chloride 82 L Carbon Dioxide 8 L* Anion Gap 34 H BUN 62 H Creatinine 2.57 H Est GFR ( Amer) 32 L Glucose 1233 H* Lactic Acid Calcium 10.3 H Magnesium 2.8 H Total Bilirubin 0.5 AST 30 Alkaline Phosphatase 130 H Total Protein 7.1 Albumin 4.3 Lipase 68.7 Urine Color Urine Appearance Urine pH Ur Specific Syl[place] Urine Protein Urine Glucose (UA) Urine Ketones Urine Blood Urine Nitrite Ur Leukocyte Esterase Urine WBC (Auto) Urine RBC (Auto) 06/15/19 06/15/19 06/15/19 12:55 13:19 13:19 WBC RBC Hgb Hct MCV MCH MCHC RDW Plt Count Seg Neutrophils % VBG pH 7.00 L* VBG pCO2 27.2 L VBG HCO3 6.6 L VBG Base Excess -23.5 Sodium Potassium Chloride Carbon Dioxide Anion Gap BUN Creatinine Est GFR ( Amer) Glucose Lactic Acid 3.5 H Calcium Magnesium Total Bilirubin AST Alkaline Phosphatase Total Protein Albumin Lipase Urine Color YELLOW Urine Appearance SLIGHTLY-CLOUDY Urine pH 5.0 Ur Specific Sylvester 1.020 Urine Protein 30 H Urine Glucose (UA) >=500 H Urine Ketones 20 H Urine Blood NEGATIVE Urine Nitrite NEGATIVE Ur Leukocyte Esterase NEGATIVE Urine WBC (Auto) 2 Urine RBC (Auto) 1 06/15/19 06/15/19 11:55 11:55 Creatine Kinase 27 L Troponin I 0.015 Impressions: Chest X-Ray 06/15/19 13:01 IMPRESSION: NO SIGNIFICANT RADIOGRAPHIC FINDING IN THE CHEST. All labs, radiographs, diagnostic studies and EKGs were personally reviewed: Yes In addition, reports of radiographic and diagnostic studies were read: Yes Critical Time Critical Time (minutes): 60 -: The care of a critically ill patient is dynamic. This note represents a static moment in the admission process. Orders and treatments may be given si multaneously and urgently, and time is not advertising representative of the treatment process. This patient requires Critical Care secondary to life threatening organ or limb dysfunction. Without Critical Care services, the patient is at risk for increased mortality and morbidity.
[2019-06-15 20:21] LABS: APPEARANCE,URINE CLEAR; BILIRUBIN,URINE NEGATIVE (NEGATIVE); COLOR,URINE STRAW; GLUCOSE, URINE >=500 mg/dL (NEGATIVE); KETONES,URINE 80 mg/dL (NEGATIVE); PROTEIN,URINE NEGATIVE (NEGATIVE); URINE SPECIFIC GRAVITY 1.017; UROBILINOGEN,URINE NEGATIVE mg/dL (<2.0)
[2019-06-15 20:58] LABS: ARTERIAL BLOOD BASE EXCESS -8.3 mmol/L; ARTERIAL BLOOD FIO2 ROOM AIR; ARTERIAL BLOOD H2CO3 0.84 mmol/L (1.05-1.35); ARTERIAL BLOOD HCO3 15.7 mmol/L (20-24); ARTERIAL BLOOD O2 SATURATION 97.5 % (94-98); ARTERIAL BLOOD PCO2 27.8 mmHg (35-45); ARTERIAL BLOOD PH 7.37 (7.35-7.45); ARTERIAL BLOOD PO2 100.3 mmHg (80-100); ARTERIAL BLOOD TOTAL CO2 16.6 mmol/L (23-27)
[2019-06-15] MEDS: HEPARIN SOD (PORCINE) 5,000 UNIT/ML 1 ML VIAL SUBCUT SCH (21:22)
--- NOTE | 2019-06-15 21:36 | EKG REPORT ---
SEVERITY:- ABNORMAL ECG - SINUS RHYTHM LEFT ATRIAL ABNORMALITY ANTERIOR INFARCT, AGE INDETERMINATE BORDERLINE PROLONGED QT INTERVAL : Confirmed by: Brendan Cummings MD 15-Jun-2019 21:35:28
[2019-06-15 22:17] LABS: BLOOD UREA NITROGEN 49 mg/dL (7-20); CALCIUM 8.6 mg/dL (8.4-10.2)
[2019-06-15 22:22] LABS: CARBON DIOXIDE 16 mmol/L (22-30); CHLORIDE 99 mmol/L (98-107)
[2019-06-15 22:33] LABS: ANION GAP 19 (5-19); POTASSIUM 3.6 mmol/L (3.6-5.0)
[2019-06-15 22:35] LABS: GLUCOSE 492 mg/dL (75-110)
[2019-06-15] MEDS ORDERED: HALOPERIDOL LACTATE INJ 5 MG/1 ML VIAL IV ONE (23:43)
[2019-06-15] MEDS ORDERED: HALOPERIDOL LACTATE INJ 5 MG/1 ML VIAL ONE (23:45)
[2019-06-16] MEDS: POTASSI CL 20 MEQ/D5-1/2NS 1L 1,000 ML IV PRN ×2 (01:45→08:21)
[2019-06-16 02:20] LABS: CALCIUM 7.9 mg/dL (8.4-10.2)
[2019-06-16 02:21] LABS: ANION GAP 6 (5-19); BLOOD UREA NITROGEN 39 mg/dL (7-20); CHLORIDE 106 mmol/L (98-107); GLUCOSE 170 mg/dL (75-110)
[2019-06-16 02:31] LABS: CARBON DIOXIDE 26 mmol/L (22-30)
[2019-06-16 02:32] LABS: POTASSIUM 2.8 mmol/L (3.6-5.0)
[2019-06-16] MEDS: POTASSI CL 20 MEQ/50 ML RIDER 20 MEQ/50 ML RTUPB IV SCH ×3 (03:43→06:45)
[2019-06-16] MEDS: HEPARIN SOD (PORCINE) 5,000 UNIT/ML 1 ML VIAL SUBCUT SCH ×3 (05:06→22:13)
[2019-06-16] MEDS ORDERED: DEXTROSE 40% GEL 15 GM TUBE PO PRN ×2 (05:16)
[2019-06-16] MEDS ORDERED: DEXTROSE 50%-WATER 25 GM/50 ML DISP.SYRIN IV PRN (05:16)
[2019-06-16] MEDS ORDERED: GLUCAGON,HUMAN RECOMB 1 MG INJ IM PRN (05:16)
[2019-06-16] MEDS ORDERED: INSULIN REG, HUMAN 100 UNIT/ML 3 ML VIAL (PYX) SUBCUT ONE (06:45)
[2019-06-16 06:56] LABS: ABSOLUTE LYMPHOCYTES (AUTO) 0.9 10^3/uL (0.5-4.7); ABSOLUTE MONOCYTES (AUTO) 1.1 10^3/uL (0.1-1.4); ABSOLUTE NEUT (AUTO) 8.9 10^3/uL (1.7-8.2); BASOPHILS % (AUTO) 0.4 % (0-2); EOSINOPHILS % (AUTO) 0.2 % (0-6); HEMATOCRIT 28.8 % (37.9-51.0); LYMPHOCYTES % (AUTO) 8.4 % (13-45); MEAN CORPUSCULAR HEMOGLOBIN 34.1 pg (27.0-33.4); MEAN CORPUSCULAR HGB CONC 36.2 g/dL (32.0-36.0); MONOCYTES % (AUTO) 9.8 % (3-13); PLATELET COUNT 227 10^3/uL (150-450); RED BLOOD COUNT 3.06 10^6/uL (4.35-5.55); SEGMENTED NEUTROPHILS % (AUTO) 81.2 % (42-78); TOTAL CELLS COUNTED % (AUTO) 100 %; WHITE BLOOD COUNT 10.9 10^3/uL (4.0-10.5)
[2019-06-16 07:01] LABS: HEMOGLOBIN 10.4 g/dL (13.5-17.0)
[2019-06-16 07:02] LABS: MEAN CORPUSCULAR VOLUME 94 fl (80-97)
[2019-06-16 07:10] LABS: ALBUMIN 3.2 g/dL (3.5-5.0); ALKALINE PHOSPHATASE 87 U/L (38-126); ANION GAP 8 (5-19); ASPARTATE AMINO TRANSFERASE 34 U/L (17-59); BILIRUBIN,TOTAL 0.4 mg/dL (0.2-1.3); BLOOD UREA NITROGEN 32 mg/dL (7-20); CALCIUM 8.1 mg/dL (8.4-10.2); CARBON DIOXIDE 22 mmol/L (22-30); CHLORIDE 106 mmol/L (98-107); CHOLESTEROL 107.62 mg/dL (0-200); GLUCOSE 230 mg/dL (75-110); TOTAL PROTEIN 5.5 g/dL (6.3-8.2); TRIGLYCERIDES 66 mg/dL (<150)
[2019-06-16 07:20] LABS: DIRECT LDL 30 mg/dL (<100)
[2019-06-16 07:36] LABS: PHOSPHORUS 3.3 mg/dL (2.5-4.5); POTASSIUM 4.3 mmol/L (3.6-5.0)
[2019-06-16] MEDS ORDERED: INSULIN REG, HUMAN 100 UNIT/ML 3 ML VIAL (PYX) SUBCUT SCH (08:00)
[2019-06-16] MEDS: HUM INSULIN NPH/REG INSULIN HM 100 UNIT/1 ML 3 ML SUBCUT SCH ×2 (08:39→17:48)
[2019-06-16] MEDS: INSULIN REG, HUMAN 100 UNIT/ML 3 ML VIAL (PYX) SUBCUT SCH ×3 (08:40→17:49)
[2019-06-16] MEDS: PANTOPRAZOLE SODIUM 40 MG VIAL IV SCH (10:39)
[2019-06-16 10:47] LABS: ANION GAP 6 (5-19); BLOOD UREA NITROGEN 27 mg/dL (7-20); CALCIUM 8.1 mg/dL (8.4-10.2); CARBON DIOXIDE 23 mmol/L (22-30); CHLORIDE 106 mmol/L (98-107); GLUCOSE 291 mg/dL (75-110)
--- NOTE | 2019-06-16 11:43 | PDOC CRITICAL CARE PROG REPORT ---
General Date:: 06/16/19 ICU Day:: 2 Hospital Day:: 2 Resuscitation Status: Full Code Events in the past 12 to 24 Hours:: This 53-year-old male presented to [facility] emergency department with complaints of generalized weakness on 06/15/2019. He is a known diabetic, also known to be nonadherent to prescribed therapy. He was found to be in diabetic ketoacidosis with acute kidney injury, glucose 1200+, K 7+. He was admitted to the ICU for management of diabetic ketoacidosis. 06/15: Anion gap is closed. Insulin drip has been discontinued. He is currently on insulin 70/30 with sliding scale coverage. He is eating. No nausea or vomiting. Reason for ICU Addmission:: DKA - Medications: Medications reviewed and adjusted accordingly: Yes Vasopressors:: None Sedation:: None Physical Exam Vital Signs: Temp Pulse Resp BP Pulse Ox 97.7 F 86 10 L 149/92 H 100 06/16/19 10:00 06/16/19 10:00 06/16/19 10:00 06/16/19 10:00 06/16/19 10:00 Intake & Output 06/15/19 06/16/19 06/17/19 06:59 06:59 06:59 Intake Total 5056 1108 Output Total 1320 500 Balance 3736 608 Weight 45.9 kg Weight/Height Weight 45.9 kg Height 1.73 m General appearance: PRESENT: no acute distress, well-developed, well-nourished Eye exam: PRESENT: conjunctiva pink, EOMI, PERRLA. ABSENT: scleral icterus Mouth exam: PRESENT: moist, tongue midline Neck exam: ABSENT: carotid bruit, JVD, lymphadenopathy, thyromegaly Respiratory exam: PRESENT: clear to auscultation baldemar. ABSENT: rales, rhonchi, wheezes Cardiovascular exam: PRESENT: RRR. ABSENT: diastolic murmur, rubs, systolic murmur Extremities exam: PRESENT: full ROM. ABSENT: calf tenderness, clubbing, pedal edema Laboratory/Radiographs Laboratory Results: 06/16/19 06:41 06/16/19 10:20 06/15/19 06/15/19 06/15/19 11:55 11:55 11:55 WBC 8.7 RBC 3.89 L Hgb 13.1 L Hct 42.9 MCV 110 H MCH 33.6 H MCHC 30.4 L RDW 15.3 H Plt Count 311 Seg Neutrophils % 86.8 H Carbonic Acid HCO3/H2CO3 Ratio ABG pH ABG pCO2 ABG pO2 ABG HCO3 ABG O2 Saturation ABG Base Excess VBG pH VBG pCO2 VBG HCO3 VBG Base Excess FiO2 Sodium 124.4 L Potassium 7.2 H* Chloride 82 L Carbon Dioxide 8 L* Anion Gap 34 H BUN 62 H Creatinine 2.57 H Est GFR ( Amer) 32 L Glucose 1233 H* Lactic Acid Calcium 10.3 H Phosphorus Magnesium 2.8 H Total Bilirubin 0.5 AST 30 Alkaline Phosphatase 130 H Total Protein 7.1 Albumin 4.3 Triglycerides Cholesterol LDL Cholesterol Direct VLDL Cholesterol HDL Cholesterol Lipase 68.7 TSH Urine Color Urine Appearance Urine pH Ur Specific [place] Urine Protein Urine Glucose (UA) Urine Ketones Urine Blood Urine Nitrite Ur Leukocyte Esterase Urine WBC (Auto) Urine RBC (Auto) 06/15/19 06/15/19 06/15/19 12:55 13:19 13:19 WBC RBC Hgb Hct MCV MCH MCHC RDW Plt Count Seg Neutrophils % Carbonic Acid HCO3/H2CO3 Ratio ABG pH ABG pCO2 ABG pO2 ABG HCO3 ABG O2 Saturation ABG Base Excess VBG pH 7.00 L* VBG pCO2 27.2 L VBG HCO3 6.6 L VBG Base Excess -23.5 FiO2 Sodium Potassium Chloride Carbon Dioxide Anion Gap BUN Creatinine Est GFR ( Amer) Glucose Lactic Acid 3.5 H Calcium Phosphorus Magnesium Total Bilirubin AST Alkaline Phosphatase Total Protein Albumin Triglycerides Cholesterol LDL Cholesterol Direct VLDL Cholesterol HDL Cholesterol Lipase TSH Urine Color YELLOW Urine Appearance SLIGHTLY-CLOUDY Urine pH 5.0 Ur Specific [place] 1.020 Urine Protein 30 H Urine Glucose (UA) >=500 H Urine Ketones 20 H Urine Blood NEGATIVE Urine Nitrite NEGATIVE Ur Leukocyte Esterase NEGATIVE Urine WBC (Auto) 2 Urine RBC (Auto) 1 06/15/19 06/15/19 06/15/19 16:30 17:37 17:37 WBC RBC Hgb Hct MCV MCH MCHC RDW Plt Count Seg Neutrophils % Carbonic Acid HCO3/H2CO3 Ratio ABG pH ABG pCO2 ABG pO2 ABG HCO3 ABG O2 Saturation ABG Base Excess VBG pH VBG pCO2 VBG HCO3 VBG Base Excess FiO2 Sodium Potassium Chloride Carbon Dioxide Anion Gap BUN Creatinine Est GFR ( Amer) Glucose Lactic Acid 3.3 H Calcium Phosphorus 6.4 H Magnesium 2.5 H Total Bilirubin AST Alkaline Phosphatase Total Protein Albumin Triglycerides Cholesterol LDL Cholesterol Direct VLDL Cholesterol HDL Cholesterol Lipase 103.1 TSH 0.45 L Urine Color Urine Appearance Urine pH Ur Specific [place] Urine Protein Urine Glucose (UA) Urine Ketones Urine Blood Urine Nitrite Ur Leukocyte Esterase Urine WBC (Auto) Urine RBC (Auto) 06/15/19 06/15/19 06/15/19 17:37 19:53 20:20 WBC RBC Hgb Hct MCV MCH MCHC RDW Plt Count Seg Neutrophils % Carbonic Acid HCO3/H2CO3 Ratio ABG pH ABG pCO2 ABG pO2 ABG HCO3 ABG O2 Saturation ABG Base Excess VBG pH VBG pCO2 VBG HCO3 VBG Base Excess FiO2 Sodium 133.2 L Potassium 4.6 D Chloride 93 L Carbon Dioxide 9 L* Anion Gap 31 H BUN 57 H Creatinine 2.00 H Est GFR ( Amer) 43 L Glucose 871 H* 667 H* Lactic Acid Calcium 9.6 Phosphorus Magnesium Total Bilirubin AST Alkaline Phosphatase Total Protein Albumin Triglycerides Cholesterol LDL Cholesterol Direct VLDL Cholesterol HDL Cholesterol Lipase TSH Urine Color STRAW Urine Appearance CLEAR Urine pH 5.0 Ur Specific [place] 1.017 Urine Protein NEGATIVE Urine Glucose (UA) >=500 H Urine Ketones 80 H Urine Blood NEGATIVE Urine Nitrite Ur Leukocyte Esterase Urine WBC (Auto) Urine RBC (Auto) 06/15/19 06/15/19 06/16/19 20:20 21:51 02:00 WBC RBC Hgb Hct MCV MCH MCHC RDW Plt Count Seg Neutrophils % Carbonic Acid 0.84 L HCO3/H2CO3 Ratio 18:1 ABG pH 7.37 ABG pCO2 27.8 L ABG pO2 100.3 H ABG HCO3 15.7 L ABG O2 Saturation 97.5 ABG Base Excess -8.3 VBG pH VBG pCO2 VBG HCO3 VBG Base Excess FiO2 ROOM AIR Sodium 134.1 L 137.5 Potassium 3.6 D 2.8 L* Chloride 99 106 Carbon Dioxide 16 L 26 D Anion Gap 19 6 BUN 49 H 39 H Creatinine 1.43 H 1.10 Est GFR ( Amer) > 60 > 60 Glucose 492 H* 170 H Lactic Acid Calcium 8.6 7.9 L Phosphorus Magnesium 1.9 1.9 Total Bilirubin AST Alkaline Phosphatase Total Protein Albumin Triglycerides Cholesterol LDL Cholesterol Direct VLDL Cholesterol HDL Cholesterol Lipase TSH Urine Color Urine Appearance Urine pH Ur Specific [place] Urine Protein Urine Glucose (UA) Urine Ketones Urine Blood Urine Nitrite Ur Leukocyte Esterase Urine WBC (Auto) Urine RBC (Auto) 06/16/19 06/16/19 06/16/19 06:41 06:41 10:20 WBC 10.9 H RBC 3.06 L Hgb 10.4 L D Hct 28.8 L MCV 94 D MCH 34.1 H MCHC 36.2 H RDW 14.0 Plt Count 227 Seg Neutrophils % 81.2 H Carbonic Acid HCO3/H2CO3 Ratio ABG pH ABG pCO2 ABG pO2 ABG HCO3 ABG O2 Saturation ABG Base Excess VBG pH VBG pCO2 VBG HCO3 VBG Base Excess FiO2 Sodium 136.3 L 134.7 L Potassium 4.3 D 4.0 Chloride 106 106 Carbon Dioxide 22 23 Anion Gap 8 6 BUN 32 H 27 H Creatinine 1.00 0.90 Est GFR ( Amer) > 60 > 60 Glucose 230 H 291 H Lactic Acid Calcium 8.1 L 8.1 L Phosphorus 3.3 D Magnesium 1.7 1.8 Total Bilirubin 0.4 AST 34 Alkaline Phosphatase 87 Total Protein 5.5 L Albumin 3.2 L Triglycerides 66 Cholesterol 107.62 LDL Cholesterol Direct 30 VLDL Cholesterol 13.0 HDL Cholesterol 64 Lipase TSH Urine Color Urine Appearance Urine pH Ur Specific [place] Urine Protein Urine Glucose (UA) Urine Ketones Urine Blood Urine Nitrite Ur Leukocyte Esterase Urine WBC (Auto) Urine RBC (Auto) 06/15/19 06/15/19 06/15/19 11:55 11:55 18:23 Creatine Kinase 27 L Troponin I 0.015 NT-Pro-B Natriuret Pep 1000 H Impressions: Chest X-Ray 06/15/19 13:01 IMPRESSION: NO SIGNIFICANT RADIOGRAPHIC FINDING IN THE CHEST. All labs, radiographs, diagnostic studies and EKGs were personally reviewed: Yes In addition, reports of radiographic and diagnostic studies were read: Yes Assessment and Plan - Diagnosis (1) DKA (diabetic ketoacidoses) Qualifiers: Diabetes mellitus type: type 2 Diabetes mellitus complication detail: without coma Qualified Code(s): E11.10 - Type 2 diabetes mellitus with ketoacidosis without coma Is this a current diagnosis for this admission?: Yes Plan: Resolved (2) Uncontrolled diabetes mellitus Qualifiers: Diabetes mellitus type: type 2 Glycemic state: with hyperglycemia Qualified Code(s): E11.65 - Type 2 diabetes mellitus with hyperglycemia Is this a current diagnosis for this admission?: Yes Plan: Okay to transfer from pulmonary standpoint. (3) Hyperkalemia Is this a current diagnosis for this admission?: Yes Plan: Resolved (4) Cocaine abuse Is this a current diagnosis for this admission?: Yes (5) Medically noncompliant Is this a current diagnosis for this admission?: Yes (6) ISELA (acute kidney injury) Is this a current diagnosis for this admission?: Yes Plan: Resolved (7) Acute diarrhea Is this a current diagnosis for this admission?: Yes (8) AMS (altered mental status) Qualifiers: Altered mental status type: delirium Qualified Code(s): R41.0 - Disorientation, unspecified Is this a current diagnosis for this admission?: Yes (9) Skin lesions, generalized Is this a current diagnosis for this admission?: Yes Critical Time Critical Time (minutes): 45 Level of Care: ICU -: 1. The care of a critical patient is a dynamic process. This note is a rep resentative synopsis but static in nature. The timeframe for treatments given in order is not necessarily the actual time these treatments may have been done. 2. This patient requires critical care secondary to ongoing requirements for therapy not offered or safe outside the critical care environment. Transfer to a lower level of care will result in altered life or limb morbidity and mortality. 3. Multidisciplinary rounds completed. 4. ABCDE bundle addressed.
[2019-06-16 15:20] LABS: BLOOD UREA NITROGEN 24 mg/dL (7-20); CALCIUM 8.3 mg/dL (8.4-10.2); CARBON DIOXIDE 24 mmol/L (22-30); CHLORIDE 107 mmol/L (98-107); GLUCOSE 70 mg/dL (75-110); POTASSIUM 3.6 mmol/L (3.6-5.0)
[2019-06-16 15:30] LABS: ANION GAP 4 (5-19)
--- NOTE | 2019-06-16 15:57 | Progress Note ---
Provider Note Provider Note: Patient presented to me by face man for possible transfer to medical floor from ICU. I understand his medical problems including severe hyperglycemia, hyperkalemia, DKA, metabolic acidosis, hyponatremia, polysubstance abuse. His blood sugar has significantly improved from 1200s down to the 200s to 300s and he has been transitioned off of insulin drip onto 70/30 insulin. Patient states this is what he uses at home. Per face man, patient is very well known to be noncompliant with his insulin and even though he has a large supply of it he does not use it. Patient seen and examined Patient is appropriate for transfer to medical floor. Continue insulin treatment Continue IV fluids He will need close follow-up with a health educator and may benefit from home health custodial to help with his medications
[2019-06-16] MEDS ORDERED: DEXTROSE 50%-WATER 25 GM/50 ML DISP.SYRIN IV ONE ×2 (17:47→17:54)
--- NOTE | 2019-06-16 17:53 | Progress Note ---
Provider Note Provider Note: POC glucose 47. No symptoms. In fact, the patient is up in bed eating his evening meal. Will administer 1/2 amp D50. Restart D5-1/2NS @ 100 mL/hr. Check BMP to confirm anion gap closure. STOP insulin 70/30. Start Lantus 15 U SQ tomorrow.
[2019-06-16] MEDS: DEXTROSE 5%-1/2 NORMAL SALINE 500 ML IV PRN (18:12)
[2019-06-16 18:26] LABS: ANION GAP 5 (5-19); BLOOD UREA NITROGEN 22 mg/dL (7-20); CALCIUM 8.4 mg/dL (8.4-10.2); CARBON DIOXIDE 24 mmol/L (22-30); CHLORIDE 105 mmol/L (98-107); PHOSPHORUS 2.5 mg/dL (2.5-4.5); POTASSIUM 3.6 mmol/L (3.6-5.0)
[2019-06-16 18:37] LABS: GLUCOSE 58 mg/dL (75-110)
[2019-06-16 22:24] LABS: ANION GAP 5 (5-19); BLOOD UREA NITROGEN 20 mg/dL (7-20); CALCIUM 7.9 mg/dL (8.4-10.2); CARBON DIOXIDE 24 mmol/L (22-30); CHLORIDE 101 mmol/L (98-107); GLUCOSE 326 mg/dL (75-110); POTASSIUM 4.3 mmol/L (3.6-5.0)
[2019-06-17] MEDS: INSULIN REG, HUMAN 100 UNIT/ML 3 ML VIAL (PYX) SUBCUT SCH ×2 (00:16→06:59)
[2019-06-17 02:51] LABS: ANION GAP 7 (5-19); BLOOD UREA NITROGEN 17 mg/dL (7-20); CALCIUM 7.7 mg/dL (8.4-10.2); CARBON DIOXIDE 20 mmol/L (22-30); CHLORIDE 103 mmol/L (98-107); GLUCOSE 282 mg/dL (75-110); POTASSIUM 3.6 mmol/L (3.6-5.0)
[2019-06-17] MEDS: DEXTROSE 5%-1/2 NORMAL SALINE 500 ML IV PRN (04:46)
[2019-06-17 06:39] LABS: ABSOLUTE BASOPHILS # (AUTO) 0.1 10^3/uL (0.0-0.2); ABSOLUTE EOSINOPHILS # (AUTO) 0.1 10^3/uL (0.0-0.6); ABSOLUTE LYMPHOCYTES (AUTO) 1.2 10^3/uL (0.5-4.7); ABSOLUTE MONOCYTES (AUTO) 0.4 10^3/uL (0.1-1.4); ABSOLUTE NEUT (AUTO) 5.3 10^3/uL (1.7-8.2); BASOPHILS % (AUTO) 1.1 % (0-2); EOSINOPHILS % (AUTO) 0.8 % (0-6); HEMOGLOBIN 9.3 g/dL (13.5-17.0); LYMPHOCYTES % (AUTO) 16.5 % (13-45); MEAN CORPUSCULAR HEMOGLOBIN 33.9 pg (27.0-33.4); MEAN CORPUSCULAR HGB CONC 35.6 g/dL (32.0-36.0); MEAN CORPUSCULAR VOLUME 95 fl (80-97); MONOCYTES % (AUTO) 5.7 % (3-13); PLATELET COUNT 177 10^3/uL (150-450); RED BLOOD COUNT 2.73 10^6/uL (4.35-5.55); RED CELL DISTRIBUTION WIDTH 14.1 % (11.5-14.0); SEGMENTED NEUTROPHILS % (AUTO) 75.9 % (42-78); TOTAL CELLS COUNTED % (AUTO) 100 %
[2019-06-17] MEDS: HEPARIN SOD (PORCINE) 5,000 UNIT/ML 1 ML VIAL SUBCUT SCH ×3 (06:53→21:33)
[2019-06-17 06:57] LABS: ALBUMIN 2.5 g/dL (3.5-5.0); ALKALINE PHOSPHATASE 78 U/L (38-126); ASPARTATE AMINO TRANSFERASE 47 U/L (17-59); BILIRUBIN,TOTAL 0.3 mg/dL (0.2-1.3); BLOOD UREA NITROGEN 15 mg/dL (7-20); CALCIUM 7.9 mg/dL (8.4-10.2); CHLORIDE 100 mmol/L (98-107); GLUCOSE 314 mg/dL (75-110); PHOSPHORUS 2.5 mg/dL (2.5-4.5); TOTAL PROTEIN 4.9 g/dL (6.3-8.2)
[2019-06-17 07:15] LABS: ANION GAP 5 (5-19); CARBON DIOXIDE 24 mmol/L (22-30)
[2019-06-17] MEDS: PANTOPRAZOLE SODIUM 40 MG VIAL IV SCH (09:23)
[2019-06-17] MEDS: INSULIN LISPRO 100 UNIT/ML 3 ML VIAL SUBCUT SCH ×3 (10:52→21:30)
[2019-06-17] MEDS: INSULIN GLARGINE,HUM.REC.ANLOG 1,000 UNIT/10 ML VIAL SUBCUT SCH (10:52)
[2019-06-17 10:53] LABS: ANION GAP 5 (5-19); BLOOD UREA NITROGEN 15 mg/dL (7-20); CALCIUM 8.5 mg/dL (8.4-10.2); CARBON DIOXIDE 26 mmol/L (22-30); CHLORIDE 99 mmol/L (98-107); GLUCOSE 288 mg/dL (75-110); POTASSIUM 3.9 mmol/L (3.6-5.0)
--- NOTE | 2019-06-17 13:05 | PDOC PROGRESS REPORT ---
Subjective Progress Note for:: 06/17/19 Subjective:: 06/17/2019 Patient sleeping and wants to be left alone today based on our discussion. When I asked him how we can improve his insulin use he becomes angry and begins ye lling stating he uses his insulin and he does not want to talk about it anymore. He does not have any specific complaints today. Per my discussion with nursing, he has been quite angry with them in general as well. We will stop his D5 and start him on Lantus 15 units to be given starting now. I discussed this with the nurse. Reason For Visit: DKA, HYPERKALEMIA Physical Exam Vital Signs: Temp Pulse Resp BP Pulse Ox 98.3 F 64 19 161/83 H 100 06/17/19 12:00 06/17/19 12:00 06/17/19 12:00 06/17/19 12:00 06/17/19 12:00 Intake & Output 06/16/19 06/17/19 06/18/19 06:59 06:59 06:59 Intake Total 5056 2205 980 Output Total 1320 950 600 Balance 3736 1255 380 Weight 45.9 kg 46.2 kg General appearance: PRESENT: no acute distress, well-developed, well-nourished Head exam: PRESENT: atraumatic, normocephalic Eye exam: PRESENT: conjunctiva pink Mouth exam: PRESENT: moist Respiratory exam: PRESENT: clear to auscultation baldemar. ABSENT: rales, rhonchi, wheezes Cardiovascular exam: PRESENT: RRR. ABSENT: diastolic murmur, rubs, systolic murmur GI/Abdominal exam: PRESENT: normal bowel sounds, soft. ABSENT: distended, guarding, mass, organolmegaly, rebound, tenderness Rectal exam: PRESENT: deferred Neurological exam: PRESENT: alert, awake, oriented to person, oriented to place, oriented to time, oriented to situation Psychiatric exam: PRESENT: agitated, normal mood Skin exam: PRESENT: dry, intact, warm Results Laboratory Results: 06/17/19 06:09 06/17/19 10:20 06/16/19 06/16/19 06/16/19 14:47 17:54 21:50 WBC RBC Hgb Hct MCV MCH MCHC RDW Plt Count Seg Neutrophils % Sodium 134.9 L 134.4 L 129.6 L Potassium 3.6 3.6 4.3 Chloride 107 105 101 Carbon Dioxide 24 24 24 Anion Gap 4 L 5 5 BUN 24 H 22 H 20 Creatinine 0.81 0.78 0.79 Est GFR ( Amer) > 60 > 60 > 60 Glucose 70 L 58 L 326 H Calcium 8.3 L 8.4 7.9 L Phosphorus 2.5 Magnesium 1.9 1.9 1.7 Total Bilirubin AST Alkaline Phosphatase Total Protein Albumin 06/17/19 06/17/19 06/17/19 02:28 06:09 06:09 WBC 7.0 RBC 2.73 L Hgb 9.3 L Hct 26.0 L MCV 95 MCH 33.9 H MCHC 35.6 RDW 14.1 H Plt Count 177 Seg Neutrophils % 75.9 Sodium 130.1 L 128.8 L Potassium 3.6 4.0 Chloride 103 100 Carbon Dioxide 20 L 24 Anion Gap 7 5 BUN 17 15 Creatinine 0.70 0.71 Est GFR ( Amer) > 60 > 60 Glucose 282 H 314 H Calcium 7.7 L 7.9 L Phosphorus 2.5 Magnesium 1.8 1.8 Total Bilirubin 0.3 AST 47 Alkaline Phosphatase 78 Total Protein 4.9 L Albumin 2.5 L 06/17/19 10:20 WBC RBC Hgb Hct MCV MCH MCHC RDW Plt Count Seg Neutrophils % Sodium 129.9 L Potassium 3.9 Chloride 99 Carbon Dioxide 26 Anion Gap 5 BUN 15 Creatinine 0.71 Est GFR ( Amer) > 60 Glucose 288 H Calcium 8.5 Phosphorus Magnesium 1.9 Total Bilirubin AST Alkaline Phosphatase Total Protein Albumin 06/15/19 06/15/19 06/15/19 11:55 11:55 18:23 Creatine Kinase 27 L Troponin I 0.015 NT-Pro-B Natriuret Pep 1000 H Impressions: Chest X-Ray 06/15/19 13:01 IMPRESSION: NO SIGNIFICANT RADIOGRAPHIC FINDING IN THE CHEST. Assessment and Plan - Diagnosis (1) DKA (diabetic ketoacidoses) Qualifiers: Diabetes mellitus type: type 1 Diabetes mellitus complication detail: without coma Qualified Code(s): E10.10 - Type 1 diabetes mellitus with ketoacidosis without coma Is this a current diagnosis for this admission?: Yes Plan: Recurrent, multiple admissions for this in the past Started on insulin drip on admission and transition to subcutaneous insulin Takes 70/30 Humalog at home but it is well documented that the patient has extremely poor compliance and does not generally use his insulin despite having a large supply of this Transferred out of ICU on 06/15 with close to metabolic acidosis IV fluids stopped Had hypoglycemia on his 70/30 and this was transitioned to Lantus 15 units da ángela (2) Acute encephalopathy Is this a current diagnosis for this admission?: Yes Plan: Due to DKA Resolved (3) CAD (coronary artery disease) Qualifiers: Coronary Disease-Associated Artery/Lesion type: [place] artery [place] vs. transplanted heart: [place] heart Associated angina: without angina Qualified Code(s): I25.10 - Atherosclerotic heart disease of [place] coronary artery without angina pectoris Is this a current diagnosis for this admission?: Yes Plan: Continue home cardiac medications (4) CHF (congestive heart failure) Qualifiers: Heart failure type: unspecified Heart failure chronicity: unspecified Qualified Code(s): I50.9 - Heart failure, unspecified Is this a current diagnosis for this admission?: Yes Plan: Not in exacerbation Continue home cardiac medications (5) DKA, type 1 Qualifiers: Diabetes mellitus complication detail: without coma Qualified Code(s): E10.10 - Type 1 diabetes mellitus with ketoacidosis without coma Is this a current diagnosis for this admission?: Yes (6) Hypertension Qualifiers: Hypertension type: essential hypertension Qualified Code(s): I10 - Essential (primary) hypertension Is this a current diagnosis for this admission?: Yes Plan: Stopped IV fluids Home medications (7) Metabolic acidosis Is this a current diagnosis for this admission?: Yes Plan: Due to DKA Gap closed, resolved - Time Time Spent with patient: 25-34 minutes Medications reviewed and adjusted accordingly: Yes Anticipated discharge: Home Within: within 48 hours - Inpatient Certification Based on my medical assessment, after consideration of the patient's comorbidities, presenting symptoms, or acuity I expect that the services needed warrant INPATIENT care.: Yes I certify that my determination is in accordance with my understanding of Medicare's requirements for reasonable and necessary INPATIENT services [42 CFR 412.3e].: Yes Medical Necessity: Significant Comorbidiites Make Outpatient Treatment Too Risky, Need Close Monitoring Due to Risk of Patient Decompensation, Risk of Complication if Not Cared For in Hospital, Risk of Diagnosis Which Will Require Inpatient Eval/Care/Monitoring
[2019-06-17 14:58] LABS: BLOOD UREA NITROGEN 15 mg/dL (7-20); CALCIUM 8.3 mg/dL (8.4-10.2); CHLORIDE 98 mmol/L (98-107); GLUCOSE 187 mg/dL (75-110); POTASSIUM 3.9 mmol/L (3.6-5.0)
[2019-06-17 15:04] LABS: CARBON DIOXIDE 30 mmol/L (22-30)
[2019-06-17 15:05] LABS: ANION GAP 3 (5-19)
[2019-06-17 18:46] LABS: BLOOD UREA NITROGEN 15 mg/dL (7-20); CALCIUM 8.6 mg/dL (8.4-10.2); CHLORIDE 97 mmol/L (98-107); GLUCOSE 113 mg/dL (75-110); PHOSPHORUS 2.2 mg/dL (2.5-4.5); POTASSIUM 3.7 mmol/L (3.6-5.0)
[2019-06-17 18:51] LABS: CARBON DIOXIDE 33 mmol/L (22-30)
[2019-06-17 18:53] LABS: ANION GAP 2 (5-19)
[2019-06-17] MEDS: HYDRALAZINE HCL INJ/PF 20 MG/1 ML SDV IV PRN (21:10)
[2019-06-17] MEDS ORDERED: INSULIN GLARGINE,HUM.REC.ANLOG 1,000 UNIT/10 ML VIAL SUBCUT SCH (22:00)
[2019-06-17 22:51] LABS: BLOOD UREA NITROGEN 15 mg/dL (7-20); CALCIUM 8.7 mg/dL (8.4-10.2); CARBON DIOXIDE 32 mmol/L (22-30); CHLORIDE 96 mmol/L (98-107); GLUCOSE 81 mg/dL (75-110); POTASSIUM 3.7 mmol/L (3.6-5.0)
[2019-06-17 23:02] LABS: ANION GAP 2 (5-19)
[2019-06-18 03:31] LABS: BLOOD UREA NITROGEN 15 mg/dL (7-20); CALCIUM 9.2 mg/dL (8.4-10.2); CARBON DIOXIDE 31 mmol/L (22-30); CHLORIDE 98 mmol/L (98-107); GLUCOSE 109 mg/dL (75-110); POTASSIUM 3.4 mmol/L (3.6-5.0)
[2019-06-18 03:51] LABS: ANION GAP 4 (5-19)
[2019-06-18] MEDS: HEPARIN SOD (PORCINE) 5,000 UNIT/ML 1 ML VIAL SUBCUT SCH ×2 (05:46→14:28)
[2019-06-18 06:11] LABS: ABSOLUTE BASOPHILS # (AUTO) 0.1 10^3/uL (0.0-0.2); ABSOLUTE EOSINOPHILS # (AUTO) 0.1 10^3/uL (0.0-0.6); ABSOLUTE LYMPHOCYTES (AUTO) 1.2 10^3/uL (0.5-4.7); ABSOLUTE MONOCYTES (AUTO) 0.4 10^3/uL (0.1-1.4); ABSOLUTE NEUT (AUTO) 3.3 10^3/uL (1.7-8.2); BASOPHILS % (AUTO) 1.1 % (0-2); EOSINOPHILS % (AUTO) 1.3 % (0-6); HEMATOCRIT 31.1 % (37.9-51.0); HEMOGLOBIN 10.9 g/dL (13.5-17.0); LYMPHOCYTES % (AUTO) 24.1 % (13-45); MEAN CORPUSCULAR HEMOGLOBIN 33.3 pg (27.0-33.4); MEAN CORPUSCULAR VOLUME 95 fl (80-97); MONOCYTES % (AUTO) 8.3 % (3-13); PLATELET COUNT 182 10^3/uL (150-450); RED BLOOD COUNT 3.27 10^6/uL (4.35-5.55); SEGMENTED NEUTROPHILS % (AUTO) 65.2 % (42-78); TOTAL CELLS COUNTED % (AUTO) 100 %; WHITE BLOOD COUNT 5.1 10^3/uL (4.0-10.5)
[2019-06-18] MEDS: HYDRALAZINE HCL INJ/PF 20 MG/1 ML SDV IV PRN (06:35)
[2019-06-18 06:52] LABS: ALBUMIN 3.2 g/dL (3.5-5.0); ALKALINE PHOSPHATASE 87 U/L (38-126); ANION GAP 6 (5-19); ASPARTATE AMINO TRANSFERASE 43 U/L (17-59); BILIRUBIN,TOTAL 0.4 mg/dL (0.2-1.3); BLOOD UREA NITROGEN 18 mg/dL (7-20); CALCIUM 9.1 mg/dL (8.4-10.2); CARBON DIOXIDE 29 mmol/L (22-30); CHLORIDE 95 mmol/L (98-107); GLUCOSE 293 mg/dL (75-110); PHOSPHORUS 2.5 mg/dL (2.5-4.5); POTASSIUM 4.1 mmol/L (3.6-5.0); TOTAL PROTEIN 5.8 g/dL (6.3-8.2)
[2019-06-18] MEDS: INSULIN LISPRO 100 UNIT/ML 3 ML VIAL SUBCUT SCH ×2 (07:23→11:32)
[2019-06-18] MEDS: INSULIN GLARGINE,HUM.REC.ANLOG 1,000 UNIT/10 ML VIAL SUBCUT SCH (09:11)
[2019-06-18] MEDS: PANTOPRAZOLE SODIUM 40 MG VIAL IV SCH (09:11)
[2019-06-18 09:33] LABS: ANION GAP 6 (5-19); BLOOD UREA NITROGEN 17 mg/dL (7-20); CALCIUM 8.9 mg/dL (8.4-10.2); CARBON DIOXIDE 29 mmol/L (22-30); CHLORIDE 93 mmol/L (98-107); GLUCOSE 312 mg/dL (75-110); POTASSIUM 4.2 mmol/L (3.6-5.0)
[2019-06-18] MEDS ORDERED: LOSARTAN POTASSIUM 50 MG TABLET PO SCH (10:00)
[2019-06-18] MEDS ORDERED: INSULIN GLARGINE,HUM.REC.ANLOG 1,000 UNIT/10 ML VIAL SUBCUT SCH ×2 (10:00→13:30)
[2019-06-18] MEDS ORDERED: INSULIN GLARGINE,HUM.REC.ANLOG 1,000 UNIT/10 ML VIAL (PYX) SUBCUT ONE ×2 (13:23→14:00)
[2019-06-18] MEDS ORDERED: INSULIN LISPRO 100 UNIT/ML 3 ML VIAL SUBCUT SCH ×2 (13:25→16:00)
[2019-06-18 13:33] VITALS: BP 194/111
[2019-06-18 14:33] LABS: ANION GAP 7 (5-19); BLOOD UREA NITROGEN 19 mg/dL (7-20); CALCIUM 9.1 mg/dL (8.4-10.2); CARBON DIOXIDE 30 mmol/L (22-30); CHLORIDE 92 mmol/L (98-107); GLUCOSE 246 mg/dL (75-110); POTASSIUM 3.5 mmol/L (3.6-5.0)
--- NOTE | 2019-06-18 15:33 | PDOC DISCHARGE SUMMARY ---
Impression - Admit/DC Date/PCP Admission Date/Primary Care Provider: 06/15/19 16:02 [facility] Discharge Date: 06/18/19 - Discharge Diagnosis (1) DKA (diabetic ketoacidoses) Is this a current diagnosis for this admission?: Yes (2) Acute encephalopathy Is this a current diagnosis for this admission?: Yes (3) CAD (coronary artery disease) Is this a current diagnosis for this admission?: Yes (4) CHF (congestive heart failure) Is this a current diagnosis for this admission?: Yes (5) DKA, type 1 Is this a current diagnosis for this admission?: Yes (6) Hypertension Is this a current diagnosis for this admission?: Yes (7) Metabolic acidosis Is this a current diagnosis for this admission?: Yes - Additional Information Resuscitation Status: Full Code Discharge Diet: Diabetic Discharge Activity: Activity As Tolerated Referrals: [facility] [Primary Care Provider] - Follow up as needed Prescriptions: Insulin Lispro [Humalog Insulin (Lispro) 100 unit/mL] 5 unit SUBCUT AC #3 vial Insulin Glargine,Hum.rec.anlog [Lantus Insulin 100 Unit/1 ml 10 ml] 20 unit SUBCUT DAILY #3 vial Home Medications: Gabapentin 300 mg PO QID 06/15/19 Losartan Potassium [Cozaar 100 mg Tablet] 50 mg PO DAILY 06/15/19 Insulin Glargine,Hum.rec.anlog [Lantus Insulin 100 Unit/1 ml 10 ml] 20 unit SUBCUT DAILY #3 vial 06/18/19 Insulin Lispro [Humalog Insulin (Lispro) 100 unit/mL] 0 - 12 unit SUBCUT ACHS unit 06/18/19 Insulin Lispro [Humalog Insulin (Lispro) 100 unit/mL] 5 unit SUBCUT AC #3 vial 06/18/19 History of Present Illiness History of Present Illness: Primary physician: "This 53-year-old male scented to [facility] emergency department with complaints of generalized weakness. He denies fever. He denies nausea, vomiting or abdominal pain. He denies chest pain. He denies shortness of breath. He denies cough or sputum production. He denies sick contacts. Patient reports that he knows that he is diabetic. He also admits that he is noncompliant with prescribed therapy. In the emergency department, the patient was found to have a serum glucose > 1200 with an elevated anion gap and hyperkalemia (K > 7). Of note, the patient is a poor historian. He is cantankerous and short tempered. He is not forthcoming about illicit drug abuse (cocaine, marijuana), tobacco abuse and alcohol abuse but does admit to these habits when asked directly." Hospital Course Hospital Course: Patient admitted for DKA and type 1 diabetes, severe metabolic acidosis. This occurred due to noncompliance with insulin at home which patient has had many problems with in the past. Blood sugar normalized and gap closed. He was switched from 70/30 to Lantus and lispro given he does not have consistent eating habits and experienced some hypoglycemia when 70/30 was restarted in the hospital. Patient became belligerent whenever staff tried to discuss how we can improve his insulin compliance and he refused to talk about it any further. Patient was discharged in stable condition and he was in full agreement with the plan. Physical Exam Vital Signs: Temp Pulse Resp BP Pulse Ox 97.9 F 72 17 194/111 H 100 06/18/19 12:00 06/18/19 12:00 06/18/19 12:00 06/18/19 12:00 06/18/19 12:00 Intake & Output 06/17/19 06/18/19 06/19/19 06:59 06:59 06:59 Intake Total 2205 2165 Output Total 950 3350 Balance 1255 -1185 Weight 46.2 kg 46.2 kg General appearance: PRESENT: no acute distress, well-developed, well-nourished Head exam: PRESENT: atraumatic Eye exam: PRESENT: conjunctiva pink. ABSENT: scleral icterus Mouth exam: PRESENT: moist Respiratory exam: PRESENT: clear to auscultation baldemar. ABSENT: rales, rhonchi, wheezes Cardiovascular exam: PRESENT: RRR. ABSENT: diastolic murmur, rubs, systolic murmur GI/Abdominal exam: PRESENT: normal bowel sounds, soft. ABSENT: distended, guar ding, mass, organolmegaly, rebound, tenderness Musculoskeletal exam: PRESENT: ambulatory Neurological exam: PRESENT: alert, awake, oriented to person, oriented to place, oriented to time, oriented to situation Psychiatric exam: PRESENT: appropriate affect, normal mood Skin exam: PRESENT: dry, intact, warm Results Laboratory Results: WBC 5.1 10^3/uL (4.0-10.5) 06/18/19 06:04 RBC 3.27 10^6/uL (4.35-5.55) L 06/18/19 06:04 Hgb 10.9 g/dL (13.5-17.0) L 06/18/19 06:04 Hct 31.1 % (37.9-51.0) L 06/18/19 06:04 MCV 95 fl (80-97) 06/18/19 06:04 MCH 33.3 pg (27.0-33.4) 06/18/19 06:04 MCHC 35.0 g/dL (32.0-36.0) 06/18/19 06:04 RDW 14.0 % (11.5-14.0) 06/18/19 06:04 Plt Count 182 10^3/uL (150-450) 06/18/19 06:04 Lymph % (Auto) 24.1 % (13-45) 06/18/19 06:04 Arthur % (Auto) 8.3 % (3-13) 06/18/19 06:04 Eos % (Auto) 1.3 % (0-6) 06/18/19 06:04 Baso % (Auto) 1.1 % (0-2) 06/18/19 06:04 Absolute Neuts (auto) 3.3 10^3/uL (1.7-8.2) 06/18/19 06:04 Absolute Lymphs (auto) 1.2 10^3/uL (0.5-4.7) 06/18/19 06:04 Absolute Monos (auto) 0.4 10^3/uL (0.1-1.4) 06/18/19 06:04 Absolute Eos (auto) 0.1 10^3/uL (0.0-0.6) 06/18/19 06:04 Absolute Basos (auto) 0.1 10^3/uL (0.0-0.2) 06/18/19 06:04 Seg Neutrophils % 65.2 % (42-78) 06/18/19 06:04 Platelet Comment ADEQUATE 06/15/19 11:55 Poikilocytosis 1+ 06/15/19 11:55 Anisocytosis SLIGHT 06/15/19 11:55 Macrocytosis 2+ 06/15/19 11:55 Ovalocytes 1+ 06/15/19 11:55 Curtis Cells 1+ 06/15/19 11:55 PT 12.3 SEC (11.4-15.4) 06/15/19 18:28 INR 0.91 06/15/19 18:28 APTT 20.6 SEC (23.5-35.8) L 06/15/19 18:28 Carbonic Acid 0.84 mmol/L (1.05-1.35) L 06/15/19 20: HCO3/H2CO3 Ratio 18:1 06/15/19 20:20 ABG pH 7.37 (7.35-7.45) 06/15/19 20:20 ABG pCO2 27.8 mmHg (35-45) L 06/15/19 20:20 ABG pO2 100.3 mmHg (80-100) H 06/15/19 20:20 ABG HCO3 15.7 mmol/L (20-24) L 06/15/19 20: ABG Total CO2 16.6 mmol/L (23-27) L 06/15/19 20:20 ABG O2 Saturation 97.5 % (94-98) 06/15/19 20:20 ABG Base Excess -8.3 mmol/L 06/15/19 20:20 VBG pH 7.00 (7.30-7.42) L* 06/15/19 13:19 VBG pCO2 27.2 mmHg (35-63) L 06/15/19 13:19 VBG HCO3 6.6 mmol/L (20-32) L 06/15/19 13:19 VBG Base Excess -23.5 mmol/L 06/15/19 13:19 FiO2 ROOM AIR 06/15/19 20:20 Sodium 128.8 mmol/L (137-145) L 06/18/19 14:04 Potassium 3.5 mmol/L (3.6-5.0) L 06/18/19 14:04 Chloride 92 mmol/L (98-107) L 06/18/19 14:04 Carbon Dioxide 30 mmol/L (22-30) 06/18/19 14:04 Anion Gap 7 (5-19) 06/18/19 14:04 BUN 19 mg/dL (7-20) 06/18/19 14:04 Creatinine 1.01 mg/dL (0.52-1.25) 06/18/19 14:04 Est GFR ( Amer) > 60 (>60) 06/18/19 14:04 Est GFR (MDRD) Non-Af > 60 (>60) 06/18/19 14:04 Glucose 246 mg/dL (75-110) H 06/18/19 14:04 POC Glucose 224 mg/dL (70-110) H 06/18/19 14:28 Hemoglobin A1c % 11.4 % (4.7-6.0) H 06/16/19 06:41 Lactic Acid 3.3 mmol/L (0.7-2.1) H 06/15/19 16:30 Calcium 9.1 mg/dL (8.4-10.2) 06/18/19 14:04 Phosphorus 2.5 mg/dL (2.5-4.5) 06/18/19 06:04 Magnesium 1.9 mg/dL (1.6-2.3) 06/18/19 14:04 Total Bilirubin 0.4 mg/dL (0.2-1.3) 06/18/19 06:04 Direct Bilirubin 0.0 mg/dL (0.0-0.4) 06/18/19 06:04 Neonat Total Bilirubin Not Reportable 06/18/19 06:04 Neonat Direct Bilirubin Not Reportable 06/18/19 06:04 Neonat Indirect Bili Not Reportable 06/18/19 06:04 AST 43 U/L (17-59) 06/18/19 06:04 ALT 34 U/L (<50) 06/18/19 06:04 Alkaline Phosphatase 87 U/L (38-126) 06/18/19 06:04 Creatine Kinase 27 U/L (55-170) L 06/15/19 11:55 Troponin I 0.015 ng/mL 06/15/19 11:55 NT-Pro-B Natriuret Pep 1000 pg/mL (<125) H 06/15/19 18:23 Total Protein 5.8 g/dL (6.3-8.2) L 06/18/19 06:04 Albumin 3.2 g/dL (3.5-5.0) L 06/18/19 06:04 Triglycerides 66 mg/dL (<150) 06/16/19 06:41 Cholesterol 107.62 mg/dL (0-200) 06/16/19 06:41 LDL Cholesterol Direct 30 mg/dL (<100) 06/16/19 06:41 VLDL Cholesterol 13.0 mg/dL (10-31) 06/16/19 06:41 HDL Cholesterol 64 mg/dL (>40) 06/16/19 06:41 Lipase 103.1 U/L (23-300) 06/15/19 17:37 Beta-Hydroxybutyrate 141 mg/dL (.) H 06/15/19 11:55 TSH 0.45 uIU/mL (0.47-4.68) L 06/15/19 17:37 Urine Color STRAW 06/15/19 19:53 Urine Appearance CLEAR 06/15/19 19:53 Urine pH 5.0 (5.0-9.0) 06/15/19 19:53 Ur Specific [place] 1.017 06/15/19 19:53 Urine Protein NEGATIVE mg/dL (NEGATIVE) 06/15/19 19:53 Urine Glucose (UA) >=500 mg/dL (NEGATIVE) H 06/15/19 19:53 Urine Ketones 80 mg/dL (NEGATIVE) H 06/15/19 19:53 Urine Blood NEGATIVE (NEGATIVE) 06/15/19 19:53 Urine Nitrite NEGATIVE (NEGATIVE) 06/15/19 12:55 Urine Nitrite (Reflex) NEGATIVE (NEGATIVE) 06/15/19 19:53 Urine Bilirubin NEGATIVE (NEGATIVE) 06/15/19 19:53 Urine Urobilinogen NEGATIVE mg/dL (<2.0) 06/15/19 19:53 Ur Leukocyte Esterase NEGATIVE (NEGATIVE) 06/15/19 12:55 Leukocyte Esterase Rfl NEGATIVE (NEGATIVE) 06/15/19 19:53 Urine WBC (Auto) 2 /HPF 06/15/19 12:55 Urine RBC (Auto) 1 /HPF 06/15/19 12:55 U Hyaline Cast (Auto) 1 /LPF 06/15/19 19:53 Urine Bacteria (Auto) TRACE /HPF 06/15/19 19:53 Urine WBC (Reflex) 1 /HPF 06/15/19 19:53 Squamous Epi Cells Auto <1 /HPF 06/15/19 12:55 Urine Mucus (Auto) RARE /LPF 06/15/19 19:53 Urine Ascorbic Acid NEGATIVE (NEGATIVE) 06/15/19 19:53 Urine Opiates Screen NEGATIVE 06/15/19 12:55 Urine Methadone Screen NEGATIVE 06/15/19 12:55 Ur Barbiturates Screen NEGATIVE 06/15/19 12:55 Ur Phencyclidine Scrn NEGATIVE 06/15/19 12:55 Ur Amphetamines Screen NEGATIVE 06/15/19 12:55 U Benzodiazepines Scrn NEGATIVE 06/15/19 12:55 Urine Cocaine Screen UNCONFIRMED POSITIVE 06/15/19 12:55 U Marijuana (THC) Screen NEGATIVE 06/15/19 12:55 06/15/19 06/15/19 11:55 18:23 Troponin I 0.015 NT-Pro-B Natriuret Pep 1000 H Impressions: Chest X-Ray 06/15/19 13:01 IMPRESSION: NO SIGNIFICANT RADIOGRAPHIC FINDING IN THE CHEST. Plan Time Spent: Greater than 30 Minutes Stroke Is this a Stroke Patient?: No Acute Heart Failure - Is this a Heart Failure Patient?: No
[2019-06-19] MEDS ORDERED: INSULIN GLARGINE,HUM.REC.ANLOG 1,000 UNIT/10 ML VIAL SUBCUT SCH (10:00)
== END 2019-06-18 15:52 | disposition home or self-care (01) | DRG 638 ==
LOC: ER 12:27 → EH 16:02 → ICU 17:12 → 4S 06-16 19:21
PROVIDERS: ADMIT Internal Medicine; ATTEND Internal Medicine
DX: E11.10 Type 2 diabetes mellitus with ketoacidosis without coma (principal); I50.30 Unspecified diastolic (congestive) heart failure; N17.9 Acute kidney failure, unspecified; G93.40 Encephalopathy, unspecified; E87.5 Hyperkalemia; E11.65 Type 2 diabetes mellitus with hyperglycemia; I25.10 Atherosclerotic heart disease of native coronary artery without angina pectoris; I11.0 Hypertensive heart disease with heart failure; F14.10 Cocaine abuse, uncomplicated; F17.210 Nicotine dependence, cigarettes, uncomplicated; Z91.14 Patient's other noncompliance with medication regimen; Z79.4 Long term (current) use of insulin; Z79.899 Other long term (current) drug therapy
CPT/HCPCS: 36415; 36600; 71045; 80048; 80053; 80061; 80076; 80307; 81001; 82010; 82550; 82803; 82947; 82962; 83036; 83605; 83690; 83735; 83880; 84100; 84443; 84484; 85025; 85610; 85730; 87040; 93005; 93010; 96361; 96374; 96375; 99291; C9113; J0360; J0610; J1630; J1644; J1815; J3480; J3490; J7030; J7070

== ENCOUNTER 2019-08-02 21:55 | Inpatient (IN) | payer MEDICAID ==
[2019-08-02] MEDS ORDERED: ONDANSETRON HCL INJ/PF 4 MG/2 ML SDV IV ONE (23:03)
[2019-08-02] MEDS ORDERED: NORMAL SALINE 1000 ML 1,000 ML IV ONE (23:03)
[2019-08-02 23:40] LABS: ABSOLUTE LYMPHOCYTES (AUTO) 0.7 10^3/uL (0.5-4.7); ABSOLUTE MONOCYTES (AUTO) 0.6 10^3/uL (0.1-1.4); ABSOLUTE NEUT (AUTO) 3.6 10^3/uL (1.7-8.2); BASOPHILS % (AUTO) 0.7 % (0-2); EOSINOPHILS % (AUTO) 0.1 % (0-6); HEMATOCRIT 29.8 % (37.9-51.0); MEAN CORPUSCULAR HEMOGLOBIN 32.8 pg (27.0-33.4); MEAN CORPUSCULAR HGB CONC 33.7 g/dL (32.0-36.0); MEAN CORPUSCULAR VOLUME 97 fl (80-97); MONOCYTES % (AUTO) 11.1 % (3-13); PLATELET COUNT 183 10^3/uL (150-450); RED BLOOD COUNT 3.07 10^6/uL (4.35-5.55); RED CELL DISTRIBUTION WIDTH 14.2 % (11.5-14.0); SEGMENTED NEUTROPHILS % (AUTO) 73.1 % (42-78); TOTAL CELLS COUNTED % (AUTO) 100 %
[2019-08-02 23:48] LABS: ALBUMIN 2.9 g/dL (3.5-5.0); ALKALINE PHOSPHATASE 91 U/L (38-126); ASPARTATE AMINO TRANSFERASE 52 U/L (17-59); BILIRUBIN,TOTAL 0.3 mg/dL (0.2-1.3); BLOOD UREA NITROGEN 19 mg/dL (7-20); CALCIUM 8.8 mg/dL (8.4-10.2); GLUCOSE 252 mg/dL (75-110); TOTAL PROTEIN 5.5 g/dL (6.3-8.2)
[2019-08-02 23:53] LABS: CHLORIDE 97 mmol/L (98-107)
[2019-08-02 23:55] LABS: ANION GAP 25 (5-19)
[2019-08-02 23:57] LABS: CARBON DIOXIDE 9 mmol/L (22-30)
[2019-08-03] MEDS ORDERED: POTASSI CL 20 MEQ/50 ML RIDER 20 MEQ/50 ML RTUPB IV ONE (00:04)
[2019-08-03] MEDS ORDERED: POTASSIUM CHLORIDE 10 MEQ TABLET.ER PO ONE ×2 (00:05→18:00)
[2019-08-03 00:08] LABS: VENOUS BLOOD BASE EXCESS -12.8 mmol/L; VENOUS BLOOD PH 7.36 (7.30-7.42)
[2019-08-03 00:16] LABS: VENOUS BLOOD PCO2 19.9 mmHg (35-63)
--- NOTE | 2019-08-03 00:36 | ER Document Report ---
ED Blood Sugar Problem - General Chief Complaint: hyperglycemia Stated Complaint: BLOOD SUGAR ISSUES Time Seen by Provider: 08/02/19 22:40 Mode of Arrival: Medic Information source: Patient Notes: 83-year-old male presented to ED for elevated blood sugar. He states he is very sick and he has blood sugar problems. He states he does not take his blood sugar at home but he has been nauseated. He states he just is very sick and needs some help. He is alert oriented answering questions very belligerently. He is seen frequently for DKA. TRAVEL OUTSIDE OF THE [place] IN LAST 30 DAYS: No - HPI Onset: This afternoon Onset/Duration: Gradual Quality of pain: No pain Pain Level: Denies D-stick result: 252 Insulin taken: No Associated symptoms: Nausea Similar symptoms previously: Yes - Related Data Allergies/Adverse Reactions: No Known Allergies Allergy (Verified 06/08/17 20:19) Home Medications: insulin Past Medical History - General Information source: Patient - Social History Smoking Status: Current Every Day Smoker Cigarette use (# per day): Yes - Third pack per day Chew tobacco use (# tins/day): No Smoking Education Provided: Yes - 4 minutes Frequency of alcohol use: None Drug Abuse: None Lives with: Alone Family History: DM, Hypertension. denies: CAD, Malignancy Patient has homicidal ideation: No - Past Medical History Cardiac Medical History: Reports: Hx Congestive Heart Failure - Diastolic, Hx Hypertension Pulmonary Medical History: Reports: None EENT Medical History: Reports: None Neurological Medical History: Reports: None Endocrine Medical History: Reports: Hx Diabetes Mellitus Type 1 Renal/ Medical History: Reports: Hx Renal Insufficiency Malignancy Medical History: Reports None GI Medical History: Reports: None Musculoskeletal Medical History: Reports None Skin Medical History: Reports None Psychiatric Medical History: Reports: None Traumatic Medical History: Reports: None Infectious Medical History: Reports: None Past Surgical History: Reports: Other - Denies any recent surgery - Immunizations Immunizations up to date: Yes Hx Diphtheria, Pertussis, Tetanus Vaccination: Yes Review of Systems - Review of Systems Constitutional: No symptoms reported EENT: No symptoms reported Cardiovascular: No symptoms reported Respiratory: No symptoms reported Gastrointestinal: Nausea Genitourinary: No symptoms reported Male Genitourinary: No symptoms reported Musculoskeletal: No symptoms reported Skin: No symptoms reported Hematologic/Lymphatic: No symptoms reported Neurological/Psychological: No symptoms reported -: Yes All other systems reviewed and negative Physical Exam - Vital signs Vitals: Temp 97.8 F 08/02/19 21:55 Interpretation: Normal - General General appearance: Appears well, Alert - HEENT Head: Normocephalic, Atraumatic Eyes: Normal Pupils: PERRL - Respiratory Respiratory status: No respiratory distress Chest status: Nontender Breath sounds: Normal Chest palpation: Normal - Cardiovascular Rhythm: Regular Heart sounds: Normal auscultation Murmur: No - Abdominal Inspection: Normal Distension: No distension Bowel sounds: Normal Tenderness: Nontender Organomegaly: No organomegaly - Back Back: Normal, Nontender - Extremities General upper extremity: Normal inspection, Nontender, Normal color, Normal ROM, Normal temperature General lower extremity: Normal inspection, Nontender, Normal color, Normal ROM, Normal temperature, Normal weight bearing. No: Regine's sign - Neurological Neuro grossly intact: Yes Cognition: Normal Orientation: AAOx4 Frankie Coma Scale Eye Opening: Spontaneous [place] Coma Scale Verbal: Oriented [place] Coma Scale Motor: Obeys Commands [place] Coma Scale Total: 15 Speech: Normal Motor strength normal: LUE, RUE, LLE, RLE Sensory: Normal - Psychological Associated symptoms: Normal affect, Normal mood - Skin Skin Temperature: Warm Skin Moisture: Dry Skin Color: Normal Course - Re-evaluation Re-evalutation: 08/03/19 07:33 After several IV fluids and repeat labs she was still acidotic. I did call hospitalist Dr. Topete and the patient was admitted to [facility]. Patient is a type I diabetic and is non-compliant at home. Did consult this patient's initial treatments and Dr. Miller before admitted the patient to Dr. Topete - Vital Signs Vital signs: Temp Pulse Resp BP Pulse Ox 97.4 F 94 22 H 146/79 H 100 08/03/19 06:38 08/03/19 06:38 08/03/19 06:38 08/03/19 06:38 08/03/19 06:38 - Laboratory Result Diagrams: 08/03/19 02:53 08/03/19 02:53 Laboratory results interpreted by me: 08/02/19 08/02/19 08/02/19 22:14 22:14 22:28 RBC 3.07 L Hgb 10.0 L Hct 29.8 L MCV RDW 14.2 H VBG pH VBG pCO2 VBG HCO3 Sodium 130.9 L Potassium 3.0 L* Chloride 97 L Carbon Dioxide 9 L* Anion Gap 25 H Glucose 252 H POC Glucose 234 H Calcium Total Protein 5.5 L Albumin 2.9 L Urine Protein Urine Glucose (UA) Urine Ketones 08/02/19 08/02/19 08/03/19 23:46 23:52 00:46 RBC Hgb Hct MCV RDW VBG pH VBG pCO2 19.9 L* VBG HCO3 11.0 L Sodium Potassium Chloride Carbon Dioxide Anion Gap Glucose POC Glucose 152 H 230 H Calcium Total Protein Albumin Urine Protein Urine Glucose (UA) Urine Ketones 08/03/19 08/03/19 08/03/19 01:15 02:09 02:53 RBC 3.03 L Hgb 9.9 L Hct 29.6 L MCV 98 H RDW 14.1 H VBG pH VBG pCO2 VBG HCO3 Sodium Potassium Chloride Carbon Dioxide Anion Gap Glucose POC Glucose 288 H Calcium Total Protein Albumin Urine Protein 30 H Urine Glucose (UA) >=500 H Urine Ketones 80 H 08/03/19 08/03/19 02:53 02:53 RBC Hgb Hct MCV RDW VBG pH 7.25 L VBG pCO2 23.0 L VBG HCO3 9.8 L Sodium 131.3 L Potassium Chloride Carbon Dioxide 12 L Anion Gap Glucose 298 H POC Glucose Calcium 7.3 L Total Protein 5.0 L Albumin 2.5 L Urine Protein Urine Glucose (UA) Urine Ketones Discharge - Discharge Clinical Impression: Hypokalemia DKA (diabetic ketoacidoses) Qualifiers: Diabetes mellitus type: type 1 Diabetes mellitus complication detail: without coma Qualified Code(s): E10.10 - Type 1 diabetes mellitus with ketoacidosis without coma Disposition: ADMITTED INPATIENT Admitting Provider: Efrem (Hospitalist) Unit Admitted: [facility]
[2019-08-03] MEDS: NORMAL SALINE 1000 ML 1,000 ML IV PRN ×2 (01:12→01:40)
[2019-08-03 02:46] LABS: APPEARANCE,URINE CLEAR; BILIRUBIN,URINE NEGATIVE (NEGATIVE); COLOR,URINE YELLOW; GLUCOSE, URINE >=500 mg/dL (NEGATIVE); KETONES,URINE 80 mg/dL (NEGATIVE); LEUKOCYTE ESTERASE,URINE NEGATIVE (NEGATIVE); NITRITE,URINE NEGATIVE (NEGATIVE); PROTEIN,URINE 30 mg/dL (NEGATIVE); URINE SPECIFIC GRAVITY 1.016; UROBILINOGEN,URINE NEGATIVE mg/dL (<2.0)
[2019-08-03 03:01] LABS: URINE AMPHETAMINES SCREEN NEGATIVE; URINE BARBITURATES SCREEN NEGATIVE; URINE BENZODIAZEPINES SCREEN NEGATIVE; URINE COCAINE SCREEN NEGATIVE; URINE MARIJUANA (THC) SCREEN NEGATIVE; URINE METHADONE SCREEN NEGATIVE; URINE PHENCYCLIDINE SCREEN NEGATIVE
[2019-08-03 03:09] LABS: ABSOLUTE LYMPHOCYTES (AUTO) 0.9 10^3/uL (0.5-4.7); ABSOLUTE MONOCYTES (AUTO) 0.5 10^3/uL (0.1-1.4); ABSOLUTE NEUT (AUTO) 3.9 10^3/uL (1.7-8.2); BASOPHILS % (AUTO) 0.6 % (0-2); EOSINOPHILS % (AUTO) 0.2 % (0-6); HEMATOCRIT 29.6 % (37.9-51.0); HEMOGLOBIN 9.9 g/dL (13.5-17.0); LYMPHOCYTES % (AUTO) 17.6 % (13-45); MEAN CORPUSCULAR HEMOGLOBIN 32.6 pg (27.0-33.4); MEAN CORPUSCULAR HGB CONC 33.4 g/dL (32.0-36.0); MEAN CORPUSCULAR VOLUME 98 fl (80-97); PLATELET COUNT 162 10^3/uL (150-450); RED BLOOD COUNT 3.03 10^6/uL (4.35-5.55); RED CELL DISTRIBUTION WIDTH 14.1 % (11.5-14.0); SEGMENTED NEUTROPHILS % (AUTO) 72.6 % (42-78); TOTAL CELLS COUNTED % (AUTO) 100 %; VENOUS BLOOD BASE EXCESS -15.7 mmol/L; VENOUS BLOOD HCO3 9.8 mmol/L (20-32); VENOUS BLOOD PH 7.25 (7.30-7.42); WHITE BLOOD COUNT 5.3 10^3/uL (4.0-10.5)
[2019-08-03 03:27] LABS: ALBUMIN 2.5 g/dL (3.5-5.0); ALKALINE PHOSPHATASE 95 U/L (38-126); ANION GAP 14 (5-19); ASPARTATE AMINO TRANSFERASE 44 U/L (17-59); BILIRUBIN,TOTAL 0.3 mg/dL (0.2-1.3); BLOOD UREA NITROGEN 15 mg/dL (7-20); CALCIUM 7.3 mg/dL (8.4-10.2); CARBON DIOXIDE 12 mmol/L (22-30); CHLORIDE 105 mmol/L (98-107); GLUCOSE 298 mg/dL (75-110)
[2019-08-03] MEDS ORDERED: NORMAL SALINE 1000 ML 1,000 ML IV ONE (03:27)
[2019-08-03] MEDS ORDERED: MAG HYDROX/AL HYDROX/SIMETH SUSP 30 ML UDCUP PO PRN (04:55)
[2019-08-03] MEDS ORDERED: MAGNESIUM HYDROXIDE SUSP 30 ML UDCUP PO PRN (04:55)
[2019-08-03] MEDS ORDERED: RINGERS SOLUTION,LACTATED 1,000 ML IV PRN (04:55)
[2019-08-03] MEDS ORDERED: ONDANSETRON HCL INJ/PF 4 MG/2 ML SDV IV PRN (04:55)
[2019-08-03] MEDS ORDERED: LEVALBUTEROL HCL NEB 0.63 MG/3 ML AMPUL NEB PRN (04:55)
[2019-08-03] MEDS ORDERED: MELATONIN 5 MG TABLET PO PRN (05:01)
[2019-08-03] MEDS ORDERED: DEXTROSE 5%-WATER 1000 ML 1,000 ML with SODIUM BICARBONATE 150 MEQ IV PRN ×2 (05:01)
[2019-08-03] MEDS ORDERED: MORPHINE SULFATE 10 MG/ML INJ IV PRN ×4 (05:01→05:09)
[2019-08-03] MEDS ORDERED: LORAZEPAM INJ 2 MG/1 ML VIAL IV PRN (05:01)
[2019-08-03] MEDS ORDERED: GUAIFENESIN SYRP 200 MG/10 ML UDC PO PRN (05:01)
[2019-08-03] MEDS ORDERED: ACETAMINOPHEN 325 MG TABLET PO PRN (05:01)
[2019-08-03] MEDS ORDERED: DEXTROSE 50%-WATER 25 GM/50 ML DISP.SYRIN IV PRN ×2 (05:02)
[2019-08-03] MEDS ORDERED: GLUCAGON,HUMAN RECOMB 1 MG INJ IM PRN (05:02)
[2019-08-03] MEDS ORDERED: NORMAL SALINE 100 ML with INSULIN REGULAR, HUMAN 100 UNIT IV PRN ×2 (05:02)
[2019-08-03] MEDS ORDERED: DEXTROSE 40% GEL 15 GM TUBE PO PRN ×2 (05:02)
[2019-08-03] MEDS ORDERED: NICOTINE 21 MG/24 HR PATCH.TD24 TD PRN (05:06)
[2019-08-03] MEDS ORDERED: INSULIN REG, HUMAN 100 UNIT/ML 3 ML VIAL (PYX) ONE (05:57)
--- NOTE | 2019-08-03 06:36 | PDOC H&P ---
History of Present Illness Admission Date/PCP: 08/03/19 04:19 [facility] Patient complains of: Hyperglycemia History of Present Illness: AMPARO PHAN is a 53 year old male who presented to the emergency room with acute hyperglycemia. He admits that his blood sugar has been gradually rising over the afternoon into the evening resulting in him presenting to the emergency room for evaluation. He admitted that, though he had not checked his blood sugar at home, he knew it was high from he has experience with diabetes and his high blood sugar was typically accompanied by nausea. He denies other associated or accompanying signs and symptoms. He admits numerous prior similar episodes related to his diabetes and DKA. He has not identified any aggravating or ameliorating factors for his acute hyperglycemia. In the emergency room he was somewhat belligerent with the staff and was noted to be moderately hyperglycemic with a metabolic acidosis and a significant anion gap. He was initially treated with IV fluids in the emergency room and subsequently admitted to the hospital for further evaluation and treatment. Past Medical History Cardiac Medical History: Reports: Congestive Heart Failure - Diastolic, Hypertension Pulmonary Medical History: Denies: Asthma, Chronic Obstructive Pulmonary Disease (COPD) EENT Medical History: Denies: Cataracts, Ears - Hearing aids Neurological Medical History: Denies: Hemorrhagic CVA, Ischemic CVA, Seizures Endocrine Medical History: Reports: Diabetes Mellitus Type 1 Denies: Diabetes Mellitus Type 2, Hyperthyroidism, Hypothyroidism, Obesity Renal/ Medical History: Denies: Chronic Kidney Disease, Nephrolithiasis Malignancy Medical History: Reports: None GI Medical History: Denies: Cirrhosis, Hepatitis, Peptic Ulcer Disease Musculoskeltal Medical History: Denies: Arthritis, Gout Skin Medical History: Denies: Eczema, Psoriasis Psychiatric Medical History: Reports: Alcohol Dependency, Substance Abuse, Tobacco Dependency Traumatic Medical History: Reports: None Hematology: Denies: Anemia, Bleeding Tendencies Infectious Medical History: Reports: None Past Surgical History Past Surgical History: Reports: None Social History Information Source: Patient Lives with: Alone Smoking Status: Current Every Day Smoker Cigarettes Packs Per Day: 0.3 Electronic Cigarette use?: No Frequency of Alcohol Use: Heavy - Denies current use of alcohol but has a history of heavy alcohol usage/abuse Hx Recreational Drug Use: Yes Drugs: Cocaine Hx Prescription Drug Abuse: Yes - Benzodiazepines - Advance Directive Resuscitation Status: Full Code Surrogate healthcare decision maker:: Pamela Rincon Family History Family History: DM, Hypertension. denies: CAD, Malignancy Parental Family History Reviewed: Yes Children Family History Reviewed: No Sibling(s) Family History Reviewed.: Yes Medication/Allergy Home Medications: Gabapentin 300 mg PO QID 06/15/19 Losartan Potassium [Cozaar 100 mg Tablet] 50 mg PO DAILY 06/15/19 Insulin Glargine,Hum.rec.anlog [Lantus Insulin 100 Unit/1 ml 10 ml] 20 unit SUBCUT DAILY #3 vial 06/18/19 Insulin Lispro [Humalog Insulin (Lispro) 100 unit/mL] 0 - 12 unit SUBCUT ACHS unit 06/18/19 Insulin Lispro [Humalog Insulin (Lispro) 100 unit/mL] 5 unit SUBCUT AC #3 vial 06/18/19 Allergies/Adverse Reactions: No Known Allergies Allergy (Verified 06/08/17 20:19) Review of Systems Constitutional: ABSENT: chills, fever(s) Eyes: ABSENT: visual disturbances, other - Eye pain Ears: ABSENT: hearing changes, other - Ear pain Nose, Mouth, and Throat: ABSENT: headache(s), sore throat Cardiovascular: ABSENT: chest pain, palpitations Respiratory: ABSENT: cough, dyspnea Gastrointestinal: PRESENT: nausea. ABSENT: abdominal pain, constipation, diarrhea, vomiting Genitourinary: PRESENT: dysuria, hematuria Musculoskeletal: ABSENT: back pain, joint swelling Integumentary: ABSENT: pruritus, rash Neurological: ABSENT: confusion, convulsions, focal weakness, memory loss, syncope Psychiatric: ABSENT: anxiety, depression Endocrine: ABSENT: cold intolerance, heat intolerance, polydipsia, polyphagia, polyuria Hematologic/Lymphatic: ABSENT: easy bleeding, easy bruising Allergic/Immunologic: ABSENT: seasonal rhinorrhea Physical Exam Vital Signs: Temp Pulse Resp BP Pulse Ox 97.8 F 16 164/100 H 100 08/02/19 21:55 08/03/19 03:00 08/03/19 00:00 08/03/19 03:00 Intake & Output 08/01/19 08/02/19 08/03/19 23:59 23:59 23:59 Intake Total 1466 Balance 1466 Weight 43.4 kg General appearance: PRESENT: no acute distress, cooperative, disheveled, thin, other - Irritable, strong odor of ketones Head exam: PRESENT: atraumatic, normocephalic Eye exam: PRESENT: conjunctiva pink. ABSENT: conjunctival injection, scleral icterus Ear exam: PRESENT: normal external ear exam. ABSENT: bleeding, drainage Mouth exam: PRESENT: dry mucosa, neck supple Neck exam: ABSENT: thyromegaly, tracheal deviation Respiratory exam: PRESENT: clear to auscultation baldemar, symmetrical, unlabored Cardiovascular exam: PRESENT: RRR. ABSENT: clicks, gallop, rubs Pulses: PRESENT: normal radial pulses, normal dorsalis pedis pul Vascular exam: PRESENT: normal capillary refill. ABSENT: pallor GI/Abdominal exam: PRESENT: normal bowel sounds, soft. ABSENT: tenderness Rectal exam: PRESENT: deferred Extremities exam: ABSENT: joint swelling, pedal edema Musculoskeletal exam: ABSENT: deformity, dislocation Neurological exam: PRESENT: alert, oriented to person, oriented to place, oriented to time, oriented to situation, CN II-XII grossly intact. ABSENT: motor sensory deficit Psychiatric exam: PRESENT: agitated - Mildly agitated, other - Irritable affect, angry mood Skin exam: PRESENT: dry, intact, warm. ABSENT: jaundice, rash, urticaria Results Laboratory Results: 08/03/19 02:53 08/03/19 02:53 08/02/19 08/02/19 08/02/19 22:14 22:14 22:14 WBC 5.0 RBC 3.07 L Hgb 10.0 L Hct 29.8 L MCV 97 MCH 32.8 MCHC 33.7 RDW 14.2 H Plt Count 183 Seg Neutrophils % 73.1 VBG pH VBG pCO2 VBG HCO3 VBG Base Excess Sodium 130.9 L Potassium 3.0 L* Chloride 97 L Carbon Dioxide 9 L* Anion Gap 25 H BUN 19 Creatinine 1.13 Est GFR ( Amer) > 60 Glucose 252 H Calcium 8.8 Magnesium 2.2 Total Bilirubin 0.3 AST 52 Alkaline Phosphatase 91 Total Protein 5.5 L Albumin 2.9 L Urine Color Urine Appearance Urine pH Ur Specific [place] Urine Protein Urine Glucose (UA) Urine Ketones Urine Blood Urine Nitrite Ur Leukocyte Esterase Urine WBC (Auto) Urine RBC (Auto) 08/02/19 08/03/19 08/03/19 23:52 01:15 02:53 WBC 5.3 RBC 3.03 L Hgb 9.9 L Hct 29.6 L MCV 98 H MCH 32.6 MCHC 33.4 RDW 14.1 H Plt Count 162 Seg Neutrophils % 72.6 VBG pH 7.36 VBG pCO2 19.9 L* VBG HCO3 11.0 L VBG Base Excess -12.8 Sodium Potassium Chloride Carbon Dioxide Anion Gap BUN Creatinine Est GFR ( Amer) Glucose Calcium Magnesium Total Bilirubin AST Alkaline Phosphatase Total Protein Albumin Urine Color YELLOW Urine Appearance CLEAR Urine pH 5.0 Ur Specific [place] 1.016 Urine Protein 30 H Urine Glucose (UA) >=500 H Urine Ketones 80 H Urine Blood NEGATIVE Urine Nitrite NEGATIVE Ur Leukocyte Esterase NEGATIVE Urine WBC (Auto) 1 Urine RBC (Auto) 0 08/03/19 08/03/19 02:53 02:53 WBC RBC Hgb Hct MCV MCH MCHC RDW Plt Count Seg Neutrophils % VBG pH 7.25 L VBG pCO2 23.0 L VBG HCO3 9.8 L VBG Base Excess -15.7 Sodium 131.3 L Potassium 4.0 D Chloride 105 Carbon Dioxide 12 L Anion Gap 14 BUN 15 Creatinine 0.78 Est GFR ( Amer) > 60 Glucose 298 H Calcium 7.3 L Magnesium 1.8 Total Bilirubin 0.3 AST 44 Alkaline Phosphatase 95 Total Protein 5.0 L Albumin 2.5 L Urine Color Urine Appearance Urine pH Ur Specific [place] Urine Protein Urine Glucose (UA) Urine Ketones Urine Blood Urine Nitrite Ur Leukocyte Esterase Urine WBC (Auto) Urine RBC (Auto) Assessment and Plan - Diagnosis (1) DKA, type 1 Qualifiers: Diabetes mellitus complication detail: without coma Qualified Code(s): E10.10 - Type 1 diabetes mellitus with ketoacidosis without coma Is this a current diagnosis for this admission?: Yes (2) Nausea Is this a current diagnosis for this admission?: Yes (3) Hypertension Qualifiers: Hypertension type: essential hypertension Qualified Code(s): I10 - Essential (primary) hypertension Is this a current diagnosis for this admission?: Yes (4) Chronic diastolic congestive heart failure Is this a current diagnosis for this admission?: Yes (5) Polysubstance abuse Is this a current diagnosis for this admission?: Yes (6) Tobacco abuse Is this a current diagnosis for this admission?: Yes - Plan Summary Summary: Patient is admitted to [facility] where he will receive routine supportive and symptomatic cares. He will be treated with IV fluids utilizing lactated Ringer's at 167 mL/h and will also be treated with a bicarbonate infusion at 333 mL/h x 3 hours. He will be treated with an intravenous insulin infusion per protocol, until his anion gap is closed and his CO2 level is at or near normal. He will use Ativan 1 mg IV every 4 hours as needed for anxiety or agitation. He will use morphine sulfate 2 to 4 mg IV every 2 hours as needed for pain. CBCs, metabolic profiles and magnesium levels will be obtained as appropriate. Additional laboratory and/or radiographic evaluations will be obtained if needed. Patient will be on a cardiac and diabetic restricted diet. Patient's usual medications will be resumed, as appropriate, once his medication list has been verified and reconciled. Smoking cessation is advised and counseled briefly at the bedside. Nicotine replacement patch is available for the patient's use, if desired. - Time Time Spent with patient: Less than 15 minutes Medications reviewed and adjusted accordingly: Yes Anticipated discharge: Home - Inpatient Certification Based on my medical assessment, after consideration of the patient's comorbidities, presenting symptoms, or acuity I expect that the services needed warrant INPATIENT care.: Yes I certify that my determination is in accordance with my understanding of Medicare's requirements for reasonable and necessary INPATIENT services [42 CFR 412.3e].: Yes Medical Necessity: Need Close Monitoring Due to Risk of Patient Decompensation, Need For IV Fluids, Need For Continuous Telemetry Monitoring, Risk of Complication if Not Cared For in Hospital
[2019-08-03] MEDS: HEPARIN SOD (PORCINE) 5,000 UNIT/ML 1 ML VIAL SUBCUT SCH ×3 (09:37→22:29)
[2019-08-03] MEDS: DOCUSATE SODIUM 100 MG CAPSULE PO SCH ×2 (09:41→17:39)
[2019-08-03] MEDS: INSULIN LISPRO 100 UNIT/ML 3 ML VIAL SUBCUT SCH ×4 (09:43→22:29)
[2019-08-03] MEDS ORDERED: INSULIN GLARGINE,HUM.REC.ANLOG 1,000 UNIT/10 ML VIAL SUBCUT SCH (10:00)
[2019-08-03] MEDS ORDERED: LOSARTAN POTASSIUM 50 MG TABLET PO SCH (10:00)
[2019-08-03 10:14] LABS: BLOOD UREA NITROGEN 13 mg/dL (7-20); CALCIUM 7.1 mg/dL (8.4-10.2); POTASSIUM 3.9 mmol/L (3.6-5.0)
[2019-08-03 10:20] LABS: CHLORIDE 99 mmol/L (98-107)
[2019-08-03 10:29] LABS: ANION GAP 22 (5-19)
[2019-08-03 10:41] LABS: CARBON DIOXIDE 8 mmol/L (22-30); GLUCOSE 486 mg/dL (75-110)
[2019-08-03] MEDS: FAMOTIDINE 20 MG TABLET PO SCH ×2 (12:19→22:28)
[2019-08-03 16:27] LABS: ANION GAP 10 (5-19); BLOOD UREA NITROGEN 10 mg/dL (7-20); CALCIUM 7.4 mg/dL (8.4-10.2); CHLORIDE 100 mmol/L (98-107); GLUCOSE 86 mg/dL (75-110)
[2019-08-03 16:43] LABS: CARBON DIOXIDE 21 mmol/L (22-30)
[2019-08-03 16:48] LABS: POTASSIUM 2.8 mmol/L (3.6-5.0)
--- NOTE | 2019-08-03 18:29 | PDOC PROGRESS REPORT ---
Subjective Progress Note for:: 08/03/19 Subjective:: AMPARO PHAN is a 53 year old male who presented to the emergency room with acute hyperglycemia. He admits that his blood sugar has been gradually rising over the afternoon into the evening resulting in him presenting to the emergency room for evaluation. He admitted that, though he had not checked his blood sugar at home, he knew it was high from he has experience with diabetes and his high blood sugar was typically accompanied by nausea. He denies other a ssociated or accompanying signs and symptoms. He admits numerous prior similar episodes related to his diabetes and DKA. He has not identified any aggravating or ameliorating factors for his acute hyperglycemia. In the emergency room he was somewhat belligerent with the staff and was noted to be moderately hyperglycemic with a metabolic acidosis and a significant anion gap. He was initially treated with IV fluids in the emergency room and subsequently admitted to the hospital for further evaluation and treatment. 08/03/2019. No acute events overnight. Reason For Visit: HYPOKALEMIA,METABOLIC ACIDOSIS,DIABETES MELLITUS Physical Exam Vital Signs: Temp Pulse Resp BP Pulse Ox 97.9 F 85 16 150/85 H 98 08/03/19 15:07 08/03/19 16:55 08/03/19 16:55 08/03/19 15:07 08/03/19 16:55 Intake & Output 08/02/19 08/03/19 08/04/19 06:59 06:59 06:59 Intake Total 1466 2080 Output Total 1600 Balance 1466 480 Weight 49.7 kg General appearance: PRESENT: no acute distress, well-developed, well-nourished Head exam: PRESENT: atraumatic, normocephalic Respiratory exam: PRESENT: clear to auscultation baldemar. ABSENT: rales, rhonchi, wheezes Cardiovascular exam: PRESENT: RRR. ABSENT: diastolic murmur, rubs, systolic murmur GI/Abdominal exam: PRESENT: normal bowel sounds, soft. ABSENT: distended, guarding, mass, organolmegaly, rebound, tenderness Extremities exam: PRESENT: full ROM. ABSENT: calf tenderness, clubbing, pedal edema Neurological exam: PRESENT: alert, awake, oriented to person, oriented to place, oriented to time, oriented to situation, CN II-XII grossly intact. ABSENT: motor sensory deficit Results Laboratory Results: 08/03/19 02:53 08/03/19 15:45 08/02/19 08/02/19 08/02/19 22:14 22:14 22:14 WBC 5.0 RBC 3.07 L Hgb 10.0 L Hct 29.8 L MCV 97 MCH 32.8 MCHC 33.7 RDW 14.2 H Plt Count 183 Seg Neutrophils % 73.1 VBG pH VBG pCO2 VBG HCO3 VBG Base Excess Sodium 130.9 L Potassium 3.0 L* Chloride 97 L Carbon Dioxide 9 L* Anion Gap 25 H BUN 19 Creatinine 1.13 Est GFR ( Amer) > 60 Glucose 252 H Calcium 8.8 Magnesium 2.2 Total Bilirubin 0.3 AST 52 Alkaline Phosphatase 91 Total Protein 5.5 L Albumin 2.9 L Urine Color Urine Appearance Urine pH Ur Specific [place] Urine Protein Urine Glucose (UA) Urine Ketones Urine Blood Urine Nitrite Ur Leukocyte Esterase Urine WBC (Auto) Urine RBC (Auto) 08/02/19 08/03/19 08/03/19 23:52 01:15 02:53 WBC 5.3 RBC 3.03 L Hgb 9.9 L Hct 29.6 L MCV 98 H MCH 32.6 MCHC 33.4 RDW 14.1 H Plt Count 162 Seg Neutrophils % 72.6 VBG pH 7.36 VBG pCO2 19.9 L* VBG HCO3 11.0 L VBG Base Excess -12.8 Sodium Potassium Chloride Carbon Dioxide Anion Gap BUN Creatinine Est GFR ( Amer) Glucose Calcium Magnesium Total Bilirubin AST Alkaline Phosphatase Total Protein Albumin Urine Color YELLOW Urine Appearance CLEAR Urine pH 5.0 Ur Specific [place] 1.016 Urine Protein 30 H Urine Glucose (UA) >=500 H Urine Ketones 80 H Urine Blood NEGATIVE Urine Nitrite NEGATIVE Ur Leukocyte Esterase NEGATIVE Urine WBC (Auto) 1 Urine RBC (Auto) 0 08/03/19 08/03/19 08/03/19 02:53 02:53 09:20 WBC RBC Hgb Hct MCV MCH MCHC RDW Plt Count Seg Neutrophils % VBG pH 7.25 L VBG pCO2 23.0 L VBG HCO3 9.8 L VBG Base Excess -15.7 Sodium 131.3 L 129.0 L Potassium 4.0 D 3.9 Chloride 105 99 Carbon Dioxide 12 L 8 L* Anion Gap 14 22 H BUN 15 13 Creatinine 0.78 0.76 Est GFR ( Amer) > 60 > 60 Glucose 298 H 486 H* Calcium 7.3 L 7.1 L Magnesium 1.8 Total Bilirubin 0.3 AST 44 Alkaline Phosphatase 95 Total Protein 5.0 L Albumin 2.5 L Urine Color Urine Appearance Urine pH Ur Specific [place] Urine Protein Urine Glucose (UA) Urine Ketones Urine Blood Urine Nitrite Ur Leukocyte Esterase Urine WBC (Auto) Urine RBC (Auto) 08/03/19 15:45 WBC RBC Hgb Hct MCV MCH MCHC RDW Plt Count Seg Neutrophils % VBG pH VBG pCO2 VBG HCO3 VBG Base Excess Sodium 130.5 L Potassium 2.8 L* D Chloride 100 Carbon Dioxide 21 L D Anion Gap 10 BUN 10 Creatinine 0.65 Est GFR ( Amer) > 60 Glucose 86 Calcium 7.4 L Magnesium Total Bilirubin AST Alkaline Phosphatase Total Protein Albumin Urine Color Urine Appearance Urine pH Ur Specific [place] Urine Protein Urine Glucose (UA) Urine Ketones Urine Blood Urine Nitrite Ur Leukocyte Esterase Urine WBC (Auto) Urine RBC (Auto) Assessment and Plan - Diagnosis (1) DKA, type 1 Qualifiers: Diabetes mellitus complication detail: without coma Qualified Code(s): E10.10 - Type 1 diabetes mellitus with ketoacidosis without coma Is this a current diagnosis for this admission?: Yes Plan: Anion gap closed. Denies any nausea or vomiting. DC insulin drip. Diabetic diet, sliding scale insulin, long-acting insulin, correctional insulin, hypoglycemic protocol, Accu-Chek. (2) Chronic diastolic congestive heart failure Is this a current diagnosis for this admission?: Yes Plan: Compensated. Resume home meds. Adjust meds as needed. Cardiac diet. (3) Hypertension Qualifiers: Hypertension type: essential hypertension Qualified Code(s): I10 - Essential (primary) hypertension Is this a current diagnosis for this admission?: Yes Plan: Euvolemic. Normotensive. Resume home meds. Adjust meds as needed. (4) Polysubstance abuse Is this a current diagnosis for this admission?: Yes Plan: Monitor for withdrawals. Supportive measures. - Plan Summary Summary: Patient is admitted to [facility] where he will receive routine supportive and symptomatic cares. He will be treated with IV fluids utilizing lactated Ringer's at 167 mL/h and will also be treated with a bicarbonate infusion at 333 mL/h x 3 hours. He will be treated with an intravenous insulin infusion per protocol, until his anion gap is closed and his CO2 level is at or near normal. He will use Ativan 1 mg IV every 4 hours as needed for anxiety or agitation. He will use morphine sulfate 2 to 4 mg IV every 2 hours as needed for pain. CBCs, metabolic profiles and magnesium levels will be obtained as appropriate. Additional laboratory and/or radiographic evaluations will be obtained if needed. Patient will be on a cardiac and diabetic restricted diet. Patient's usual medications will be resumed, as appropriate, once his medication list has been verified and reconciled. Smoking cessation is advised and counseled briefly at the bedside. Nicotine replacement patch is available for the patient's use, if desired.
[2019-08-03 22:33] LABS: BLOOD UREA NITROGEN 10 mg/dL (7-20); CALCIUM 7.3 mg/dL (8.4-10.2)
[2019-08-03 22:39] LABS: CARBON DIOXIDE 25 mmol/L (22-30); CHLORIDE 100 mmol/L (98-107)
[2019-08-03 22:43] LABS: POTASSIUM 3.9 mmol/L (3.6-5.0)
[2019-08-03 22:44] LABS: ANION GAP 4 (5-19); GLUCOSE 56 mg/dL (75-110)
[2019-08-04 05:47] LABS: HEMATOCRIT 27.5 % (37.9-51.0); HEMOGLOBIN 9.5 g/dL (13.5-17.0); MEAN CORPUSCULAR HEMOGLOBIN 32.8 pg (27.0-33.4); MEAN CORPUSCULAR HGB CONC 34.6 g/dL (32.0-36.0); MEAN CORPUSCULAR VOLUME 95 fl (80-97); PLATELET COUNT 156 10^3/uL (150-450); RED CELL DISTRIBUTION WIDTH 14.2 % (11.5-14.0); WHITE BLOOD COUNT 3.3 10^3/uL (4.0-10.5)
[2019-08-04] MEDS: HEPARIN SOD (PORCINE) 5,000 UNIT/ML 1 ML VIAL SUBCUT SCH ×3 (05:55→22:30)
[2019-08-04 06:07] LABS: ANION GAP 6 (5-19); BLOOD UREA NITROGEN 8 mg/dL (7-20); CALCIUM 7.6 mg/dL (8.4-10.2); CARBON DIOXIDE 22 mmol/L (22-30); CHLORIDE 102 mmol/L (98-107); GLUCOSE 95 mg/dL (75-110); POTASSIUM 3.9 mmol/L (3.6-5.0)
[2019-08-04] MEDS ORDERED: INSULIN GLARGINE,HUM.REC.ANLOG 1,000 UNIT/10 ML VIAL SUBCUT SCH ×3 (10:00→22:00)
[2019-08-04] MEDS: INSULIN LISPRO 100 UNIT/ML 3 ML VIAL SUBCUT SCH ×4 (10:11→22:30)
[2019-08-04] MEDS: GABAPENTIN 300 MG CAPSULE PO SCH ×4 (10:22→22:32)
[2019-08-04] MEDS: LOSARTAN POTASSIUM 50 MG TABLET PO SCH (10:22)
[2019-08-04] MEDS: DOCUSATE SODIUM 100 MG CAPSULE PO SCH ×2 (10:22→17:29)
[2019-08-04] MEDS: FAMOTIDINE 20 MG TABLET PO SCH ×2 (10:22→22:32)
--- NOTE | 2019-08-04 12:12 | CDI QUERY ---
CDI Query CDI Review: Dear Provider: To better reflect your patients severity of illness, morbidity, and resource utilization Please specify and document in the Progress Notes and Discharge Summary if you are monitoring / treating / evaluating any of the following conditions: Query Clinical indicators Cachexia Malnutrition (Please note degree: Mild, Moderate, Severe) Protein Calorie Malnutrition Underweight Unable to determine Other Please include the patients BMI in your documentation. History of: Alcohol Dependency, Substance Abuse, Tobacco Dependency DM I Ht: 5 ft 8 in Wt 51.6 kg (113.52 lbs) Calculated BMI 17.3 Total Protein: 5.5 Albumin: 2.9 H/H 9.9 / 29.6 The terms probable, suspected, likely, possible or still to be ruled out may be used if you are unable to determine the exact nature of a condition. Thank you for your consideration, Clinical Documentation Physician Advisor SAMIR Levin RN [email or web address]
--- NOTE | 2019-08-04 17:24 | PDOC PROGRESS REPORT ---
Subjective Progress Note for:: 08/04/19 Subjective:: AMPARO PHAN is a 53 year old male who presented to the emergency room with acute hyperglycemia. He admits that his blood sugar has been gradually rising over the afternoon into the evening resulting in him presenting to the emergency room for evaluation. He admitted that, though he had not checked his blood sugar at home, he knew it was high from he has experience with diabetes and his high blood sugar was typically accompanied by nausea. He denies other a ssociated or accompanying signs and symptoms. He admits numerous prior similar episodes related to his diabetes and DKA. He has not identified any aggravating or ameliorating factors for his acute hyperglycemia. In the emergency room he was somewhat belligerent with the staff and was noted to be moderately hyperglycemic with a metabolic acidosis and a significant anion gap. He was initially treated with IV fluids in the emergency room and subsequently admitted to the hospital for further evaluation and treatment. 08/03/2019. No acute events overnight. 08/04/2019. No acute events overnight. P.o. tolerant. Having normal bowel and bladder movement. Denies any fever, chills, nausea, vomiting, diarrhea, constipation. Reason For Visit: HYPOKALEMIA,METABOLIC ACIDOSIS,DIABETES MELLITUS Physical Exam Vital Signs: Temp Pulse Resp BP Pulse Ox 97.9 F 64 14 157/99 H 99 08/04/19 11:29 08/04/19 14:00 08/04/19 13:01 08/04/19 11:29 08/04/19 13:01 Intake & Output 08/03/19 08/04/19 08/05/19 06:59 06:59 06:59 Intake Total 1466 2560 348 Output Total 1600 500 Balance 1466 960 -152 Weight 49.7 kg 51.6 kg General appearance: PRESENT: no acute distress, thin Respiratory exam: PRESENT: clear to auscultation baldemar. ABSENT: rales, rhonchi, wheezes Cardiovascular exam: PRESENT: RRR. ABSENT: diastolic murmur, rubs, systolic murmur GI/Abdominal exam: PRESENT: normal bowel sounds, soft. ABSENT: distended, guarding, mass, organolmegaly, rebound, tenderness Neurological exam: PRESENT: alert, awake, oriented to person, oriented to place, oriented to time, oriented to situation, CN II-XII grossly intact. ABSENT: motor sensory deficit Results Laboratory Results: 08/04/19 05:22 08/04/19 05:22 08/03/19 08/04/19 08/04/19 21:54 05:22 05:22 WBC 3.3 L RBC 2.90 L Hgb 9.5 L Hct 27.5 L MCV 95 MCH 32.8 MCHC 34.6 RDW 14.2 H Plt Count 156 Sodium 128.6 L 130.2 L Potassium 3.9 D 3.9 Chloride 100 102 Carbon Dioxide 25 22 Anion Gap 4 L 6 BUN 10 8 Creatinine 0.62 0.61 Est GFR ( Amer) > 60 > 60 Glucose 56 L 95 Calcium 7.3 L 7.6 L Magnesium 1.7 Assessment and Plan - Diagnosis (1) Diabetes mellitus Qualifiers: Diabetes mellitus type: type 2 Diabetes mellitus care home insulin use: wi th care home use Diabetes mellitus complication status: with hyperglycemia Qualified Code(s): E11.65 - Type 2 diabetes mellitus with hyperglycemia; Z79.4 - group home (current) use of insulin Is this a current diagnosis for this admission?: Yes Plan: History of uncontrolled diabetes mellitus. Hemoglobin A1c more than 12%. Diabetic diet, basal, sliding scale and correctional insulin. Hypoglycemic protocol. Accu-Chek. Diabetic education. (2) Malnutrition Qualifiers: Malnutrition type: protein-calorie malnutrition Protein-calorie malnutrition severity: moderate Qualified Code(s): E44.0 - Moderate protein- calorie malnutrition Is this a current diagnosis for this admission?: Yes Plan: BMI 17.3. Unfortunately patient is homeless and also has history of polysubstance abuse. This is most likely due to low p.o. intake. We will consult registered dietitian. Pending prealbumin. (3) Chronic diastolic congestive heart failure Is this a current diagnosis for this admission?: Yes Plan: Compensated. Resume home meds. Adjust meds as needed. Cardiac diet. (4) Hypertension Qualifiers: Hypertension type: essential hypertension Qualified Code(s): I10 - Essential (primary) hypertension Is this a current diagnosis for this admission?: Yes Plan: Euvolemic. Normotensive. Resume home meds. Adjust meds as needed. (5) Polysubstance abuse Is this a current diagnosis for this admission?: Yes Plan: Monitor for withdrawals. Supportive measures. (6) DKA, type 1 Qualifiers: Diabetes mellitus complication detail: without coma Qualified Code(s): E10.10 - Type 1 diabetes mellitus with ketoacidosis without coma Is this a current diagnosis for this admission?: Yes Plan: Anion gap closed. Denies any nausea or vomiting. DC insulin drip. Diabetic diet, sliding scale insulin, long-acting insulin, correctional insulin, hypoglycemic protocol, Accu-Chek. - Plan Summary Summary: Patient is admitted to [facility] where he will receive routine supportive and symptomatic cares. He will be treated with IV fluids utilizing lactated Ringer's at 167 mL/h and will also be treated with a bicarbonate infusion at 333 mL/h x 3 hours. He will be treated with an intravenous insulin infusion per protocol, until his anion gap is closed and his CO2 level is at or near normal. He will use Ativan 1 mg IV every 4 hours as needed for anxiety or agitation. He will use morphine sulfate 2 to 4 mg IV every 2 hours as needed for pain. CBCs, metabolic profiles and magnesium levels will be obtained as appropriate. Additional laboratory and/or radiographic evaluations will be obtained if needed. Patient will be on a cardiac and diabetic restricted diet. Patient's usual medications will be resumed, as appropriate, once his medication list has been verified and reconciled. Smoking cessation is advised and counseled briefly at the bedside. Nicotine replacement patch is available for the patient's use, if desired.
[2019-08-05 06:34] LABS: ALBUMIN 2.4 g/dL (3.5-5.0); ALKALINE PHOSPHATASE 154 U/L (38-126); ANION GAP 5 (5-19); ASPARTATE AMINO TRANSFERASE 686 U/L (17-59); BILIRUBIN,DIRECT 0.1 mg/dL (0.0-0.4); BILIRUBIN,TOTAL 0.4 mg/dL (0.2-1.3); BLOOD UREA NITROGEN 11 mg/dL (7-20); CALCIUM 8.2 mg/dL (8.4-10.2); CARBON DIOXIDE 27 mmol/L (22-30); CHLORIDE 97 mmol/L (98-107); GLUCOSE 266 mg/dL (75-110); POTASSIUM 4.5 mmol/L (3.6-5.0); TOTAL PROTEIN 4.9 g/dL (6.3-8.2)
[2019-08-05 06:44] LABS: PREALBUMIN 16.4 mg/dL (17.6-36.0)
[2019-08-05] MEDS: HYDRALAZINE HCL INJ/PF 20 MG/1 ML SDV IV PRN (07:56)
[2019-08-05] MEDS: INSULIN LISPRO 100 UNIT/ML 3 ML VIAL SUBCUT SCH ×4 (07:57→22:59)
[2019-08-05] MEDS: GABAPENTIN 300 MG CAPSULE PO SCH ×4 (10:12→23:00)
[2019-08-05] MEDS: DOCUSATE SODIUM 100 MG CAPSULE PO SCH ×2 (10:12→18:05)
[2019-08-05] MEDS: FAMOTIDINE 20 MG TABLET PO SCH ×2 (10:12→23:00)
[2019-08-05] MEDS: LOSARTAN POTASSIUM 50 MG TABLET PO SCH (12:03)
[2019-08-05 14:01] LABS: ALBUMIN 2.5 g/dL (3.5-5.0); ALKALINE PHOSPHATASE 165 U/L (38-126); ASPARTATE AMINO TRANSFERASE 663 U/L (17-59); BILIRUBIN,TOTAL 0.2 mg/dL (0.2-1.3); TOTAL PROTEIN 5.2 g/dL (6.3-8.2)
[2019-08-05] MEDS: HEPARIN SOD (PORCINE) 5,000 UNIT/ML 1 ML VIAL SUBCUT SCH ×3 (14:22→23:00)
--- NOTE | 2019-08-05 14:50 | PDOC PROGRESS REPORT ---
Subjective Progress Note for:: 08/05/19 Subjective:: AMPARO PHAN is a 53 year old male who presented to the emergency room with acute hyperglycemia. He admits that his blood sugar has been gradually rising over the afternoon into the evening resulting in him presenting to the emergency room for evaluation. He admitted that, though he had not checked his blood sugar at home, he knew it was high from he has experience with diabetes and his high blood sugar was typically accompanied by nausea. He denies other a ssociated or accompanying signs and symptoms. He admits numerous prior similar episodes related to his diabetes and DKA. He has not identified any aggravating or ameliorating factors for his acute hyperglycemia. In the emergency room he was somewhat belligerent with the staff and was noted to be moderately hyperglycemic with a metabolic acidosis and a significant anion gap. He was initially treated with IV fluids in the emergency room and subsequently admitted to the hospital for further evaluation and treatment. 08/03/2019. No acute events overnight. 08/04/2019. No acute events overnight. P.o. tolerant. Having normal bowel and bladder movement. Denies any fever, chills, nausea, vomiting, diarrhea, constipation. 08/05/2019. Saw patient this afternoon while enjoying his lunch, alert and oriented, no apparent distress, p.o. tolerant, having normal bowel and bladder movement, alert and oriented, interactive and answering questions appropriately. Patient is stating that he does not take his insulin at home, and when his diabetes not controlled very well he feels very weak he does not eat as a result, patient admits to drinking excessive amount of water. Today patient denies any fever, chills, nausea, vomiting, chest pain, shortness of breath or any urinary symptoms. Reason For Visit: HYPOKALEMIA,METABOLIC ACIDOSIS,DIABETES MELLITUS Physical Exam Vital Signs: Temp Pulse Resp BP Pulse Ox 97.9 F 93 17 117/74 98 08/05/19 11:38 08/05/19 11:38 08/05/19 11:38 08/05/19 11:38 08/05/19 11:38 Intake & Output 08/04/19 08/05/19 08/06/19 06:59 06:59 06:59 Intake Total 2560 1148 Output Total 1600 500 Balance 960 648 Weight 51.6 kg 44.8 kg General appearance: PRESENT: no acute distress, thin Head exam: PRESENT: atraumatic, normocephalic Respiratory exam: PRESENT: clear to auscultation baldemar. ABSENT: rales, rhonchi, wheezes GI/Abdominal exam: PRESENT: normal bowel sounds, soft. ABSENT: distended, guarding, mass, organolmegaly, rebound, tenderness Neurological exam: PRESENT: alert, awake, oriented to person, oriented to place, oriented to time, oriented to situation, CN II-XII grossly intact. ABSENT: motor sensory deficit Results Laboratory Results: 08/04/19 05:22 08/05/19 05:35 08/05/19 08/05/19 08/05/19 05:35 12:10 13:35 Sodium 128.8 L Potassium 4.5 Chloride 97 L Carbon Dioxide 27 Anion Gap 5 BUN 11 Creatinine 0.73 Est GFR ( Amer) > 60 Glucose 266 H Calcium 8.2 L Total Bilirubin 0.4 0.2 AST 686 H 663 H Alkaline Phosphatase 154 H 165 H Total Protein 4.9 L 5.2 L Albumin 2.4 L 2.5 L Prealbumin 16.4 L Urine Osmolality 522 Assessment and Plan - Diagnosis (1) Diabetes mellitus Qualifiers: Diabetes mellitus type: type 2 Diabetes mellitus ferry terminal supervisor insulin use: with ferry terminal supervisor use Diabetes mellitus complication status: with hyperglycemia Qualified Code(s): E11.65 - Type 2 diabetes mellitus with hyperglycemia; Z79.4 - intermediate (current) use of insulin Is this a current diagnosis for this admission?: Yes Plan: History of uncontrolled diabetes mellitus. Hemoglobin A1c more than 12%. Diabetic diet, basal, sliding scale and correctional insulin. Hypoglycemic protocol. Accu-Chek. Diabetic education. (2) Malnutrition Qualifiers: Malnutrition type: protein-calorie malnutrition Protein-calorie malnutrition severity: moderate Qualified Code(s): E44.0 - Moderate protein- calorie malnutrition Is this a current diagnosis for this admission?: Yes Plan: BMI 17.3. Prealbumin 16.4. Unfortunately patient is homeless and also has history of polysubstance abuse. This is most likely due to low p.o. intake. Patient admitting to not eating much with his diabetes not controlled he feels too weak to prepare food. Registered dietitian and discharge planning has been consulted. Continue nutritional support. (3) Chronic diastolic congestive heart failure Is this a current diagnosis for this admission?: Yes Plan: Compensated. Resume home meds. Adjust meds as needed. Cardiac diet. (4) Hypertension Qualifiers: Hypertension type: essential hypertension Qualified Code(s): I10 - Essential (primary) hypertension Is this a current diagnosis for this admission?: Yes Plan: Euvolemic. Normotensive. Resume home meds. Adjust meds as needed. (5) Polysubstance abuse Is this a current diagnosis for this admission?: Yes Plan: Monitor for withdrawals. Supportive measures. Urine tox negative on this admission. (6) DKA, type 1 Qualifiers: Diabetes mellitus complication detail: without coma Qualified Code(s): E10.10 - Type 1 diabetes mellitus with ketoacidosis without coma Is this a current diagnosis for this admission?: Yes Plan: Anion gap closed. Denies any nausea or vomiting. DC insulin drip. Diabetic diet, sliding scale insulin, long-acting insulin, correctional insulin, hypoglycemic protocol, Accu-Chek. (7) Transaminitis Is this a current diagnosis for this admission?: Yes Plan: On today's chemistry patient has elevated AST ALT and alkaline phosphatase with no changes in T bili. Patient denies any hepatotoxic substance ingestion, and has not received any new medication on this hospitalization except for his regular home meds and insulin. Former alcoholic. History of polysubstance abuse. We will check for hepatitis panel and HIV. Will obtain liver ultrasound. PT/INR for tomorrow. Avoid hepatotoxic meds. (8) Hyponatremia Is this a current diagnosis for this admission?: Yes Plan: Chronic. Multifactorial. Euvolemic hyponatremia. Urine osmolarity 522. Sodium 61. Likely SIADH and excessive fluid intake. We will check for TSH, random cortisol level and BNP. Advised patient to cut down on his fluid intake. Fluid restriction. Will consult nephrology for further recommendation. [facility] tomorrow. Monitor for seizure. - Plan Summary Summary: Patient is admitted to [facility] where he will receive routine supportive and symptomatic cares. He will be treated with IV fluids utilizing lactated Ringer's at 167 mL/h and will also be treated with a bicarbonate infusion at 333 mL/h x 3 hours. He will be treated with an intravenous insulin infusion per protocol, until his anion gap is closed and his CO2 level is at or near normal. He will use Ativan 1 mg IV every 4 hours as needed for anxiety or agitation. He will use morphine sulfate 2 to 4 mg IV every 2 hours as needed for pain. CBCs, metabolic profiles and magnesium levels will be obtained as appropriate. Additional laboratory and/or radiographic evaluations will be obtained if needed. Patient will be on a cardiac and diabetic restricted diet. Patient's usual medications will be resumed, as appropriate, once his medication list has been verified and reconciled. Smoking cessation is advised and counseled briefly at the bedside. Nicotine replacement patch is available for the patient's use, if desired.
[2019-08-05] MEDS ORDERED: INSULIN GLARGINE,HUM.REC.ANLOG 1,000 UNIT/10 ML VIAL SUBCUT SCH (22:00)
[2019-08-06 04:47] LABS: INTERNATIONAL RATION (INR) 0.91; PROTHROMBIN TIME 12.2 SEC (11.4-15.4)
[2019-08-06] MEDS: HEPARIN SOD (PORCINE) 5,000 UNIT/ML 1 ML VIAL SUBCUT SCH ×3 (05:31→22:11)
[2019-08-06 07:07] LABS: HEMATOCRIT 30.4 % (37.9-51.0); HEMOGLOBIN 10.4 g/dL (13.5-17.0); MEAN CORPUSCULAR HEMOGLOBIN 32.3 pg (27.0-33.4); MEAN CORPUSCULAR HGB CONC 34.1 g/dL (32.0-36.0); MEAN CORPUSCULAR VOLUME 95 fl (80-97); PLATELET COUNT 135 10^3/uL (150-450); RED BLOOD COUNT 3.22 10^6/uL (4.35-5.55)
[2019-08-06 07:25] LABS: ALBUMIN 2.6 g/dL (3.5-5.0); ALKALINE PHOSPHATASE 207 U/L (38-126); BILIRUBIN,TOTAL 0.2 mg/dL (0.2-1.3); BLOOD UREA NITROGEN 17 mg/dL (7-20); CALCIUM 8.8 mg/dL (8.4-10.2); GLUCOSE 99 mg/dL (75-110); POTASSIUM 3.9 mmol/L (3.6-5.0); TOTAL PROTEIN 5.3 g/dL (6.3-8.2)
[2019-08-06 07:30] LABS: ABSOLUTE LYMPHOCYTES# (MANUAL) 1.1 10^3/uL (0.5-4.7); ABSOLUTE MONOCYTES # (MANUAL) 0.2 10^3/uL (0.1-1.4); BASOPHILS % (MANUAL) 0 % (0-2); CARBON DIOXIDE 32 mmol/L (22-30); CHLORIDE 96 mmol/L (98-107); EOSINOPHILS % (MANUAL) 0 % (0-6); LYMPHOCYTES % (MANUAL) 64 % (13-45); MONOCYTES % (MANUAL) 12 % (3-13); PLATELET COMMENT ADEQUATE; RBC MORPHOLOGY COMMENT NORMO-CYTIC/CHROMIC; SEGMENTED NEUTROPHILS % (MAN) 24 % (42-78); TOTAL CELLS COUNTED 50
[2019-08-06 07:33] LABS: ANION GAP 2 (5-19); ASPARTATE AMINO TRANSFERASE 1097 U/L (17-59)
[2019-08-06 07:37] LABS: WHITE BLOOD COUNT 1.7 10^3/uL (4.0-10.5)
[2019-08-06] MEDS: INSULIN LISPRO 100 UNIT/ML 3 ML VIAL SUBCUT SCH ×4 (08:48→22:06)
[2019-08-06] MEDS: DOCUSATE SODIUM 100 MG CAPSULE PO SCH ×2 (10:06→17:20)
[2019-08-06] MEDS: GABAPENTIN 300 MG CAPSULE PO SCH ×4 (10:12→22:08)
[2019-08-06] MEDS: FAMOTIDINE 20 MG TABLET PO SCH ×2 (10:12→22:08)
[2019-08-06] MEDS: LOSARTAN POTASSIUM 50 MG TABLET PO SCH (10:12)
[2019-08-06] MEDS: HYDRALAZINE HCL INJ/PF 20 MG/1 ML SDV IV PRN (11:46)
--- NOTE | 2019-08-06 12:54 | PDOC PROGRESS REPORT ---
Subjective Progress Note for:: 08/06/19 Subjective:: AMPARO PHAN is a 53 year old male who presented to the emergency room with acute hyperglycemia. He admits that his blood sugar has been gradually rising over the afternoon into the evening resulting in him presenting to the emergency room for evaluation. He admitted that, though he had not checked his blood sugar at home, he knew it was high from he has experience with diabetes and his high blood sugar was typically accompanied by nausea. He denies other a ssociated or accompanying signs and symptoms. He admits numerous prior similar episodes related to his diabetes and DKA. He has not identified any aggravating or ameliorating factors for his acute hyperglycemia. In the emergency room he was somewhat belligerent with the staff and was noted to be moderately hyperglycemic with a metabolic acidosis and a significant anion gap. He was initially treated with IV fluids in the emergency room and subsequently admitted to the hospital for further evaluation and treatment. 08/03/2019. No acute events overnight. 08/04/2019. No acute events overnight. P.o. tolerant. Having normal bowel and bladder movement. Denies any fever, chills, nausea, vomiting, diarrhea, constipation. 08/05/2019. Saw patient this afternoon while enjoying his lunch, alert and oriented, no apparent distress, p.o. tolerant, having normal bowel and bladder movement, alert and oriented, interactive and answering questions appropriately. Patient is stating that he does not take his insulin at home, and when his diabetes not controlled very well he feels very weak he does not eat as a result, patient admits to drinking excessive amount of water. Today patient denies any fever, chills, nausea, vomiting, chest pain, shortness of breath or any urinary symptoms. 08/06/2019. No acute events overnight. Patient resting in bed no apparent distress, alert and oriented and cooperative with physical examination. Denies any fever, chills, nausea, vomiting. P.o. tolerant. Having normal bowel and bladder movements. Reason For Visit: HYPOKALEMIA,METABOLIC ACIDOSIS,DIABETES MELLITUS Physical Exam Vital Signs: Temp Pulse Resp BP Pulse Ox 97.6 F 63 18 120/80 100 08/06/19 11:16 08/06/19 11:16 08/06/19 11:16 08/06/19 12:31 08/06/19 11:16 Intake & Output 08/05/19 08/06/19 08/07/19 06:59 06:59 06:59 Intake Total 1148 2576 440 Output Total 664 953 8570 Balance 648 8676 -560 Weight 44.8 kg 48.4 kg Results Laboratory Results: 08/06/19 04:05 08/06/19 04:05 08/05/19 08/05/19 08/05/19 12:10 13:35 13:35 WBC RBC Hgb Hct MCV MCH MCHC RDW Plt Count Seg Neutrophils % Sodium Potassium Chloride Carbon Dioxide Anion Gap BUN Creatinine Est GFR ( Amer) Glucose Calcium Magnesium Total Bilirubin 0.2 GGT AST 663 H Alkaline Phosphatase 165 H Total Protein 5.2 L Albumin 2.5 L TSH 0.66 Urine Osmolality 522 08/06/19 08/06/19 08/06/19 04:05 04:05 04:05 WBC 1.7 L D RBC 3.22 L Hgb 10.4 L Hct 30.4 L MCV 95 MCH 32.3 MCHC 34.1 RDW 14.0 Plt Count 135 L Seg Neutrophils % Not Reportable Sodium 129.9 L Potassium 3.9 Chloride 96 L Carbon Dioxide 32 H Anion Gap 2 L BUN 17 Creatinine 0.79 Est GFR ( Amer) > 60 Glucose 99 Calcium 8.8 Magnesium 2.1 Total Bilirubin 0.2 GGT 759 H AST 1097 H Alkaline Phosphatase 207 H Total Protein 5.3 L Albumin 2.6 L TSH Urine Osmolality 08/05/19 13:35 NT-Pro-B Natriuret Pep 1520 H Assessment and Plan - Diagnosis (1) Neutropenia Is this a current diagnosis for this admission?: Yes Plan: Afebrile. No sign of infection. Patient also has anemia and thrombocytopenia which are chronic however neutropenia is new. Hepatitis panel negative. HIV negative. Pending CMV and EBV serology. Possibly due to profound malnutrition. Will obtain hepatitis panel, B12 and folic acid level. Meanwhile will start on B12, folic acid, thiamine and other vitamins. Hematology consulted. Recommendations pending. (2) Hyponatremia Is this a current diagnosis for this admission?: Yes Plan: Mild improvement. Chronic. Multifactorial. Euvolemic hyponatremia. Urine osmolarity 522. Sodium 61. TSH WNL. Random cortisol WNL. Mildly elevated BNP. Advised patient to cut down on his fluid intake. Fluid restriction. Neurology consulted. BMP tomorrow. Monitor for seizure. (3) Transaminitis Is this a current diagnosis for this admission?: Yes Plan: Liver enzymes are trending up. GGT 659. Pending liver ultrasound. PT/INR WNL. HIV negative. Hepatitis panel pending. Patient denies any hepatotoxic substance ingestion, and has not received any new medication on this hospitalization except for his regular home meds and insulin. Former alcoholic. History of polysubstance abuse. Avoid hepatotoxic meds. Gastroenterology consulted. Pending recommendations. (4) Diabetes mellitus Qualifiers: Diabetes mellitus type: type 2 Diabetes mellitus terminal supervisor insulin use: with custodial use Diabetes mellitus complication status: with hyperglycemia Qualified Code(s): E11.65 - Type 2 diabetes mellitus with hyperglycemia; Z79.4 - superintendent marine oil terminal (current) use of insulin Is this a current diagnosis for this admission?: Yes Plan: History of uncontrolled diabetes mellitus. Hemoglobin A1c more than 12%. Diabetic diet, basal, sliding scale and correctional insulin. Hypoglycemic protocol. Accu-Chek. Diabetic education. (5) Malnutrition Qualifiers: Malnutrition type: protein-calorie malnutrition Protein-calorie malnutrition severity: moderate Qualified Code(s): E44.0 - Moderate protein- calorie malnutrition Is this a current diagnosis for this admission?: Yes Plan: BMI 17.3. Prealbumin 16.4. Unfortunately patient is homeless and also has history of polysubstance abuse. This is most likely due to low p.o. intake. Patient admitting to not eating much with his diabetes not controlled he feels too weak to prepare food. Registered dietitian and discharge planning has been consulted. Continue nutritional support. (6) Chronic diastolic congestive heart failure Is this a current diagnosis for this admission?: Yes Plan: Compensated. Resume home meds. Adjust meds as needed. Cardiac diet. (7) Hypertension Qualifiers: Hypertension type: essential hypertension Qualified Code(s): I10 - Essential (primary) hypertension Is this a current diagnosis for this admission?: Yes Plan: Euvolemic. Normotensive. Resume home meds. Adjust meds as needed. (8) Polysubstance abuse Is this a current diagnosis for this admission?: Yes Plan: Monitor for withdrawals. Supportive measures. Urine tox negative on this admission. (9) DKA, type 1 Qualifiers: Diabetes mellitus complication detail: without coma Qualified Code(s): E10.10 - Type 1 diabetes mellitus with ketoacidosis without coma Is this a current diagnosis for this admission?: Yes Plan: Anion gap closed. Denies any nausea or vomiting. DC insulin drip. Diabetic diet, sliding scale insulin, long-acting insulin, correctional insulin, hypoglycemic protocol, Accu-Chek. - Plan Summary Summary: Patient is admitted to [facility] where he will receive routine supportive and sympt omatic cares. He will be treated with IV fluids utilizing lactated Ringer's at 167 mL/h and will also be treated with a bicarbonate infusion at 333 mL/h x 3 hours. He will be treated with an intravenous insulin infusion per protocol, until his anion gap is closed and his CO2 level is at or near normal. He will use Ativan 1 mg IV every 4 hours as needed for anxiety or agitation. He will use morphine sulfate 2 to 4 mg IV every 2 hours as needed for pain. CBCs, metabolic profiles and magnesium levels will be obtained as appropriate. Additional laboratory and/or radiographic evaluations will be obtained if needed. Patient will be on a cardiac and diabetic restricted diet. Patient's usual medications will be resumed, as appropriate, once his medication list has been verified and reconciled. Smoking cessation is advised and counseled briefly at the bedside. Nicotine replacement patch is available for the patient's use, if desired.
[2019-08-06] MEDS ORDERED: LOSARTAN POTASSIUM 50 MG TABLET PO ONE ×2 (13:00→17:00)
--- NOTE | 2019-08-06 14:44 | RADIOLOGY REPORT (SQ) ---
EXAM DESCRIPTION: U/S ABDOMEN LTD W/DOPPLER IMAGES COMPLETED DATE/TIME: 08/05/2019 4:00 pm REASON FOR STUDY: Transaminitis COMPARISON: CT angiography abdomen and pelvis, 07/13/2018 TECHNIQUE: Dynamic and static grayscale images acquired of the abdomen and recorded on PACS. Domingao martha selected color Doppler and spectral images recorded. LIMITATIONS: None. FINDINGS: PANCREAS: No masses. Visualized pancreatic duct normal caliber. LIVER: No masses. Echotexture normal. LIVER VASCULATURE: Normal directional flow of the main portal vein and hepatic veins. GALLBLADDER: Gallbladder is contracted. No echogenic gallstones or shadowing. No gallbladder wall t hickening or pericholecystic fluid. ULTRASOUND-DETECTED ANTUNEZ'S SIGN: Negative. INTRAHEPATIC DUCTS AND COMMON DUCT: CBD and intrahepatic ducts normal caliber. No filling defects. INFERIOR VENA CAVA: Normal flow. AORTA: No aneurysm. RIGHT KIDNEY: Normal size and echogenicity. Inferior pole renal cortical cyst measuring 2.1 cm. No hydronephrosis or perinephric fluid. PERITONEAL AND RIGHT PLEURAL SPACE: No ascites or effusions. OTHER: No other significant findings. IMPRESSION: No sonographic abnormality of the right upper quadrant abdomen. TECHNICAL DOCUMENTATION: JOB ID: [id number] 2010 [employer]- All Rights Reserved Reading location - IP/workstation name: [email or web address]
[2019-08-06 15:28] LABS: IRON(TIBC) 40.8 ug/dL (49-181)
[2019-08-06 15:29] LABS: ABSOLUTE RETICS # 0.017 10^6/uL (0.028-0.122); RETICULOCYTE COUNT (AUTO) 0.57 % (0.66-2.85)
[2019-08-06 16:35] LABS: FOLATE 6.21 ng/mL (>2.76)
[2019-08-06] MEDS ORDERED: CYANOCOBALAMIN (VITAMIN B-12) INJ 1000 MCG/1 ML VIAL ONE (16:58)
[2019-08-06] MEDS: CYANOCOBALAMIN (VITAMIN B-12) INJ 1000 MCG/1 ML VIAL IM SCH (17:25)
[2019-08-06] MEDS: INSULIN GLARGINE,HUM.REC.ANLOG 1,000 UNIT/10 ML VIAL SUBCUT SCH (22:07)
[2019-08-07 05:08] LABS: HEMATOCRIT 28.5 % (37.9-51.0); HEMOGLOBIN 9.9 g/dL (13.5-17.0); MEAN CORPUSCULAR HEMOGLOBIN 32.8 pg (27.0-33.4); MEAN CORPUSCULAR HGB CONC 34.6 g/dL (32.0-36.0); MEAN CORPUSCULAR VOLUME 95 fl (80-97); PLATELET COUNT 129 10^3/uL (150-450); RED BLOOD COUNT 3.01 10^6/uL (4.35-5.55); RED CELL DISTRIBUTION WIDTH 14.3 % (11.5-14.0)
[2019-08-07 05:16] LABS: ALBUMIN 2.5 g/dL (3.5-5.0); ALKALINE PHOSPHATASE 263 U/L (38-126); BILIRUBIN,TOTAL 0.2 mg/dL (0.2-1.3); BLOOD UREA NITROGEN 22 mg/dL (7-20); CALCIUM 8.5 mg/dL (8.4-10.2); GLUCOSE 101 mg/dL (75-110); POTASSIUM 4.2 mmol/L (3.6-5.0); TOTAL PROTEIN 4.9 g/dL (6.3-8.2)
[2019-08-07 05:21] LABS: CARBON DIOXIDE 36 mmol/L (22-30); CHLORIDE 93 mmol/L (98-107)
[2019-08-07 05:28] LABS: WHITE BLOOD COUNT 1.6 10^3/uL (4.0-10.5)
[2019-08-07 05:29] LABS: ASPARTATE AMINO TRANSFERASE 1203 U/L (17-59)
[2019-08-07 05:30] LABS: ANION GAP 1 (5-19)
[2019-08-07 05:31] LABS: ABSOLUTE LYMPHOCYTES# (MANUAL) 0.8 10^3/uL (0.5-4.7); ABSOLUTE MONOCYTES # (MANUAL) 0.1 10^3/uL (0.1-1.4); BASOPHILS % (MANUAL) 0 % (0-2); EOSINOPHILS % (MANUAL) 6 % (0-6); LYMPHOCYTES % (MANUAL) 48 % (13-45); MONOCYTES % (MANUAL) 8 % (3-13); SEGMENTED NEUTROPHILS % (MAN) 38 % (42-78); TOTAL CELLS COUNTED 50
[2019-08-07 05:32] LABS: ANISOCYTOSIS 1+; PLATELET COMMENT ADEQUATE; POLYCHROMASIA 1+
[2019-08-07] MEDS: HEPARIN SOD (PORCINE) 5,000 UNIT/ML 1 ML VIAL SUBCUT SCH ×3 (05:39→22:54)
[2019-08-07] MEDS: INSULIN LISPRO 100 UNIT/ML 3 ML VIAL SUBCUT SCH ×4 (08:11→22:56)
--- NOTE | 2019-08-07 08:38 | PDOC CONSULTATION ---
Consultation Consult Date: 08/07/19 Provider Consulted: NELSY STEIN Consult reason:: Hematology/Oncology consultation was requested for patient with new onset leukopenia. History of Present Illness Admission Date/PCP: 08/03/19 04:19 [facility] History of Present Illness: AMPARO PHAN is a 53 year old male with Type I DM who presented to the ED complaining of nausea and elevated Glucose. He was found to have diabetic ketoacidosis and has been admitted for further treatment. Today, patient says that he is feeling much better. However, his speech is slow and he only answers simple questions. He is not able to tell me who his PCP is. He does tell me that he had been dizzy, sleeping all the time, and weak, but today, he has not slept all night. His WBC on admission was 5.0 and today is down to 1.6. HGB has been stable at 10 and PLT mildly decreased since admission as well. Past Medical History Cardiac Medical History: Reports: Congestive Heart Failure - Diastolic, Hypertension Pulmonary Medical History: Reports: None Denies: Asthma, Chronic Obstructive Pulmonary Disease (COPD) EENT Medical History: Reports: None Denies: Cataracts, Ears - Hearing aids Neurological Medical History: Reports: Ischemic CVA Denies: Hemorrhagic CVA, Seizures Endocrine Medical History: Reports: Diabetes Mellitus Type 1 Denies: Diabetes Mellitus Type 2, Hyperthyroidism, Hypothyroidism, Obesity Renal/ Medical History: Denies: Chronic Kidney Disease, Nephrolithiasis Malignancy Medical History: Reports: None GI Medical History: Reports: None Denies: Cirrhosis, Hepatitis, Peptic Ulcer Disease Musculoskeltal Medical History: Reports: None Denies: Arthritis, Gout Skin Medical History: Reports: None Denies: Eczema, Psoriasis Psychiatric Medical History: Reports: None, Alcohol Dependency, Substance Abuse, Tobacco Dependency Denies: Depression Traumatic Medical History: Reports: None Hematology: Denies: Anemia, Bleeding Tendencies Infectious Medical History: Reports: None Past Surgical History Past Surgical History: Reports: Other - Removal of part of a lung as a child due to abscess. Social History Lives with: Alone Smoking Status: Current Every Day Smoker Cigarettes Packs Per Day: 5 Electronic Cigarette use?: No Last Time Smoked: 08/01/2019 Frequency of Alcohol Use: Heavy - Denies current use of alcohol but has a history of heavy alcohol usage/abuse Hx Recreational Drug Use: Yes Drugs: Cocaine Hx Prescription Drug Abuse: Yes Past Social History Note: He has 3 children, 1 dog and chickens. - Advance Directive Resuscitation Status: Full Code Family History Family History: DM, Hypertension. denies: CAD, Malignancy Parental Family History Reviewed: Yes - Father with DM Children Family History Reviewed: No Sibling(s) Family History Reviewed.: Yes - 3 siblings, all healthy Medication/Allergy Home Medications: Gabapentin 300 mg PO QID 06/15/19 Losartan Potassium [Cozaar 100 mg Tablet] 50 mg PO DAILY 06/15/19 Insulin Lispro [Humalog Insulin (Lispro) 100 unit/mL] 5 unit SUBCUT AC #3 vial 06/18/19 Insulin Glargine,Hum.rec.anlog [Lantus Insulin 100 Unit/1 ml 10 ml] 25 unit SUBCUT DAILY 08/03/19 Allergies/Adverse Reactions: No Known Allergies Allergy (Verified 06/08/17 20:19) Review of Systems Constitutional: PRESENT: headache(s). ABSENT: fever(s) Eyes: ABSENT: visual disturbances Ears: ABSENT: hearing changes Nose, Mouth, and Throat: ABSENT: sore throat Cardiovascular: PRESENT: chest pain Respiratory: ABSENT: dyspnea Gastrointestinal: PRESENT: heartburn, nausea Genitourinary: ABSENT: dysuria Integumentary: ABSENT: rash Neurological: PRESENT: weakness Hematologic/Lymphatic: ABSENT: easy bleeding Physical Exam Vital Signs: Temp Pulse Resp BP Pulse Ox 97.6 F 70 16 133/85 H 98 08/07/19 03:56 08/07/19 07:00 08/07/19 03:56 08/07/19 03:56 08/07/19 03:56 Intake & Output 08/06/19 08/07/19 08/08/19 06:59 06:59 06:59 Intake Total 2576 1642 Output Total 200 1000 Balance 2376 642 Weight 48.4 kg 48.1 kg General appearance: PRESENT: no acute distress, thin Exam: 53 year old male. Head exam: PRESENT: normocephalic Eye exam: PRESENT: EOMI Mouth exam: PRESENT: tongue midline Neck exam: ABSENT: lymphadenopathy, tenderness Respiratory exam: PRESENT: clear to auscultation baldemar, unlabored Cardiovascular exam: PRESENT: RRR GI/Abdominal exam: PRESENT: normal bowel sounds, soft. ABSENT: tenderness Extremities exam: ABSENT: pedal edema Musculoskeletal exam: PRESENT: normal inspection Neurological exam: PRESENT: alert, awake, oriented to person, oriented to place Psychiatric exam: PRESENT: appropriate affect Focused psych exam: ABSENT: restlessness Skin exam: PRESENT: pallor Results Laboratory Results: 08/07/19 04:34 08/07/19 04:34 08/06/19 08/06/19 08/06/19 04:05 14:55 14:55 WBC RBC Hgb Hct MCV MCH MCHC RDW Plt Count Seg Neutrophils % Retic Count (auto) 0.57 L Sodium Potassium Chloride Carbon Dioxide Anion Gap BUN Creatinine Est GFR ( Amer) Glucose Calcium Magnesium Iron 40.8 L TIBC 260 % Saturation 16 Transferrin Ferritin 343.00 Total Bilirubin GGT 759 H AST Alkaline Phosphatase Total Protein Albumin Vitamin B12 759.0 Folate 6.21 08/06/19 08/07/19 08/07/19 14:55 04:34 04:34 WBC 1.6 L RBC 3.01 L Hgb 9.9 L Hct 28.5 L MCV 95 MCH 32.8 MCHC 34.6 RDW 14.3 H Plt Count 129 L Seg Neutrophils % Not Reportable Retic Count (auto) Sodium 130.1 L Potassium 4.2 Chloride 93 L Carbon Dioxide 36 H Anion Gap 1 L BUN 22 H Creatinine 0.75 Est GFR ( Amer) > 60 Glucose 101 Calcium 8.5 Magnesium 1.9 Iron TIBC % Saturation Transferrin 184.31 L Ferritin Total Bilirubin 0.2 GGT AST 1203 H Alkaline Phosphatase 263 H Total Protein 4.9 L Albumin 2.5 L Vitamin B12 Folate 08/05/19 13:35 NT-Pro-B Natriuret Pep 1520 H Impressions: Abdomen Ultrasound 08/05/19 00:00 IMPRESSION: No sonographic abnormality of the right upper quadrant abdomen. Status: Image reviewed by me Assessment & Plan - Diagnosis (1) DKA (diabetic ketoacidoses) Qualifiers: Diabetes mellitus type: type 1 Diabetes mellitus complication detail: without coma Qualified Code(s): E10.10 - Type 1 diabetes mellitus with ketoacidosis without coma Is this a current diagnosis for this admission?: Yes Plan: As per Primary team. Sodium levels still quite low. (2) Neutropenia Is this a current diagnosis for this admission?: Yes Plan: Most likely reactive due to underlying illness. No obvious medications causing this. No recent fevers. He has had low WBC count on previous admissions. I will continue to monitor. He is receiving B12. If this does not resolve within the next few days, consider bone marrow biopsy. (3) Transaminitis Is this a current diagnosis for this admission?: Yes Plan: HIV was negative. Await HBV and HCV. This may also cause leukopenia, if positive. US was negative. - Plan Summary Plan Summary: He has a longstanding smoking history and no recent CT of the lungs. With the hyponatremia and clinical picture, would consider low-dose CT for lung cancer screening. I will continue to follow. Please call with any concerns.
[2019-08-07] MEDS: LOSARTAN POTASSIUM 50 MG TABLET PO SCH (09:27)
[2019-08-07] MEDS: CYANOCOBALAMIN (VITAMIN B-12) INJ 1000 MCG/1 ML VIAL IM SCH (09:28)
[2019-08-07] MEDS: FAMOTIDINE 20 MG TABLET PO SCH ×2 (09:28→22:56)
[2019-08-07] MEDS: DOCUSATE SODIUM 100 MG CAPSULE PO SCH ×2 (09:28→17:21)
[2019-08-07] MEDS: GABAPENTIN 300 MG CAPSULE PO SCH ×4 (09:28→22:56)
[2019-08-07] MEDS: HYDRALAZINE HCL INJ/PF 20 MG/1 ML SDV IV PRN (12:07)
[2019-08-07] MEDS ORDERED: ONDANSETRON HCL INJ/PF 4 MG/2 ML SDV IV PRN (13:00)
[2019-08-07 14:36] LABS: HEPATITS B SURFACE ANTIGEN Negative (Negative)
[2019-08-07 16:20] LABS: HEPATITIS C VIRUS ANTIBODY >11.0 s/co ratio (0.0-0.9)
--- NOTE | 2019-08-07 16:22 | PDOC PROGRESS REPORT ---
Subjective Progress Note for:: 08/07/19 Subjective:: AMPARO PHAN is a 53 year old male who presented to the emergency room with acute hyperglycemia. He admits that his blood sugar has been gradually rising over the afternoon into the evening resulting in him presenting to the emergency room for evaluation. He admitted that, though he had not checked his blood sugar at home, he knew it was high from he has experience with diabetes and his high blood sugar was typically accompanied by nausea. He denies other a ssociated or accompanying signs and symptoms. He admits numerous prior similar episodes related to his diabetes and DKA. He has not identified any aggravating or ameliorating factors for his acute hyperglycemia. In the emergency room he was somewhat belligerent with the staff and was noted to be moderately hyperglycemic with a metabolic acidosis and a significant anion gap. He was initially treated with IV fluids in the emergency room and subsequently admitted to the hospital for further evaluation and treatment. 08/03/2019. No acute events overnight. 08/04/2019. No acute events overnight. P.o. tolerant. Having normal bowel and bladder movement. Denies any fever, chills, nausea, vomiting, diarrhea, constipation. 08/05/2019. Saw patient this afternoon while enjoying his lunch, alert and oriented, no apparent distress, p.o. tolerant, having normal bowel and bladder movement, alert and oriented, interactive and answering questions appropriately. Patient is stating that he does not take his insulin at home, and when his diabetes not controlled very well he feels very weak he does not eat as a result, patient admits to drinking excessive amount of water. Today patient denies any fever, chills, nausea, vomiting, chest pain, shortness of breath or any urinary symptoms. 08/06/2019. No acute events overnight. Patient resting in bed no apparent distress, alert and oriented and cooperative with physical examination. Denies any fever, chills, nausea, vomiting. P.o. tolerant. Having normal bowel and bladder movements. 08/07/2019. No acute events overnight. Patient seen resting in bed, comfortably, on room air. He is A&O x4. Reports that he is feeling well today. He asks about pending liver labs (hepatitis, CMV, EBV). He denies fever, chills, chest pain, palpitations, dyspnea, orthopnea, abdominal pain, nausea vomiting diarrhea. Reports good appetite. Reason For Visit: HYPOKALEMIA,METABOLIC ACIDOSIS,DIABETES MELLITUS Physical Exam Vital Signs: Temp Pulse Resp BP Pulse Ox 97.6 F 91 18 126/84 H 98 08/07/19 11:45 08/07/19 14:00 08/07/19 11:45 08/07/19 12:39 08/07/19 12:39 Intake & Output 08/06/19 08/07/19 08/08/19 06:59 06:59 06:59 Intake Total 2576 1642 780 Output Total 200 1000 Balance 2376 642 780 Weight 48.4 kg 48.1 kg 48.1 kg General appearance: PRESENT: no acute distress, thin, well-developed Head exam: PRESENT: atraumatic, normocephalic Eye exam: PRESENT: conjunctiva pink, EOMI, PERRLA. ABSENT: scleral icterus Mouth exam: PRESENT: moist, tongue midline Teeth exam: PRESENT: poor dentation Respiratory exam: PRESENT: clear to auscultation baldemar, symmetrical, unlabored. ABSENT: rales, rhonchi, wheezes Cardiovascular exam: PRESENT: RRR. ABSENT: diastolic murmur, rubs, systolic murmur Vascular exam: PRESENT: normal capillary refill Extremities exam: PRESENT: full ROM. ABSENT: calf tenderness, clubbing, pedal edema Neurological exam: PRESENT: alert, awake, oriented to person, oriented to place, oriented to time, oriented to situation, CN II-XII grossly intact. ABSENT: motor sensory deficit Psychiatric exam: PRESENT: appropriate affect, normal mood. ABSENT: homicidal ideation, suicidal ideation Skin exam: PRESENT: dry, intact, warm. ABSENT: cyanosis, rash Results Laboratory Results: 08/07/19 04:34 08/07/19 04:34 08/06/19 08/07/19 08/07/19 14:55 04:34 04:34 WBC 1.6 L RBC 3.01 L Hgb 9.9 L Hct 28.5 L MCV 95 MCH 32.8 MCHC 34.6 RDW 14.3 H Plt Count 129 L Seg Neutrophils % Not Reportable Sodium 130.1 L Potassium 4.2 Chloride 93 L Carbon Dioxide 36 H Anion Gap 1 L BUN 22 H Creatinine 0.75 Est GFR ( Amer) > 60 Glucose 101 Calcium 8.5 Magnesium 1.9 Iron 40.8 L TIBC 260 % Saturation 16 Ferritin 343.00 Total Bilirubin 0.2 AST 1203 H Alkaline Phosphatase 263 H Total Protein 4.9 L Albumin 2.5 L Vitamin B12 759.0 Folate 6.21 08/05/19 13:35 NT-Pro-B Natriuret Pep 1520 H Impressions: Abdomen Ultrasound 08/05/19 00:00 IMPRESSION: No sonographic abnormality of the right upper quadrant abdomen. Assessment and Plan - Diagnosis (1) Transaminitis Is this a current diagnosis for this admission?: Yes Plan: Liver enzymes are trending up. GGT 759. AST 52-> 686-> 1203 ALT 47-> 200-> 490 Liver ultrasound is benign. PT/INR WNL. HIV negative. Hepatitis panel pending. Patient denies any hepatotoxic substance ingestion, and has not received any new medication on this hospitalization except for his regular home meds and insulin. Former alcoholic. History of polysubstance abuse. Avoid hepatotoxic meds. Gastroenterology consulted. Pending recommendations. Resume gentle IVF Follow up CMP and PT/INR (2) Neutropenia Is this a current diagnosis for this admission?: Yes Plan: Afebrile. No sign of infection. Patient also has anemia and thrombocytopenia which are chronic however neutropenia is new. HIV negative Hepatitis panel pending. Pending CMV and EBV serology. Possibly due to profound malnutrition. Anemia panel unremarkable. Hematology consulted. Considering bone marrow biopsy if does not resolve over the next few days. (3) Hyponatremia Is this a current diagnosis for this admission?: Yes Plan: Mild improvement. Chronic. Multifactorial. Euvolemic hyponatremia. Urine osmolarity 522. Sodium 61. TSH WNL. Random cortisol WNL. Mildly elevated BNP. Advised patient to cut down on his fluid intake. Fluid restriction. Neurology consulted; discussed with Dr. Villalobos. 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 Does not believe that the patient requires further aggressive management or interventions. Encourage fluid restriction. Remaining evaluation per her expertise. Follow-up chemistry. (4) Chronic diastolic congestive heart failure Is this a current diagnosis for this admission?: Yes Plan: Compensated. Continue home dose losartan. Holding atorvastatin secondary to elevated LFTs. Cardiac diet. (5) Malnutrition Qualifiers: Malnutrition type: protein-calorie malnutrition Protein-calorie malnutrition severity: moderate Qualified Code(s): E44.0 - Moderate protein-calorie malnutrition Is this a current diagnosis for this admission?: Yes Plan: BMI 16.1. Prealbumin 16.4. Unfortunately patient is homeless and also has history of polysubstance abuse. This is most likely due to low p.o. intake. Patient admitting to not eating much with his diabetes not controlled he feels too weak to prepare food. Registered dietitian and discharge planning has been consulted. Continue nutritional support. 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 Hemoglobin A1c more than 12%. Diabetic diet, basal, sliding scale and correctional insulin. Hypoglycemic protocol. Accu-Chek. Diabetic education. (7) Hypertension Qualifiers: Hypertension type: essential hypertension Qualified Code(s): I10 - Essential (primary) hypertension Is this a current diagnosis for this admission?: Yes Plan: Well controlled on home dose losartan. IV hydralazine as needed for blood pressure control. Cardiac diet. (8) Polysubstance abuse Is this a current diagnosis for this admission?: Yes Plan: Monitor for withdrawals. Supportive measures. Urine tox negative on this admission. (9) DKA (diabetic ketoacidoses) Qualifiers: Diabetes mellitus type: type 1 Diabetes mellitus complication detail: without coma Qualified Code(s): E10.10 - Type 1 diabetes mellitus with ketoacidosis without coma Is this a current diagnosis for this admission?: Yes Plan: Resolved. Received generous IV fluids, bicarb drip, and insulin drip for glucose and electrolyte correction. Now on subcutaneous insulin with adequate blood sugar control. - Time Time Spent with patient: 25-34 minutes Medications reviewed and adjusted accordingly: Yes Anticipated discharge: Home
[2019-08-07] MEDS: NORMAL SALINE 1000 ML 1,000 ML IV PRN (17:26)
[2019-08-07] MEDS: INSULIN GLARGINE,HUM.REC.ANLOG 1,000 UNIT/10 ML VIAL SUBCUT SCH (22:57)
--- NOTE | 2019-08-08 00:33 | PDOC CONSULTATION ---
Consultation Consult Date: 08/07/19 Provider Consulted: LEXI ALLEN Consult reason:: Hyponatremia History of Present Illness Admission Date/PCP: 08/03/19 04:19 [facility] History of Present Illness: AMPARO PHAN is a 53 year old gentleman with history of diabetes mellitus type 1, hypertension, diastolic congestive heart failure, and polysubstance dependence who was admitted on August 02 for DKA. Patient was treated with IV fluids and IV insulin drip and has gotten better. Patient was also found to have hyponatremia with initial sodium level of 131.3 and for the last few days been minimally fluctuating to as low as 128 up to 130. Today sodium is 130.1. Patient states that he is not aware of any problem with sodium level in the past. He admits feeling tired for the last few months like feeling like you always wanted to sleep. He denies any history of seizure in the past. Initial work-up showed a urine osmolality of 522, urine sodium of 61 normal TSH and cortisol. All other electrolytes are within normal limits as well as the kidney function. Past Medical History Neurological Medical History: Reports: Ischemic CVA Endocrine Medical History: Reports: Diabetes Mellitus Type 1 Psychiatric Medical History: Reports: Alcohol Dependency, Substance Abuse, Tobacco Dependency Past Surgical History Past Surgical History: Reports: Other - Removal of part of a lung as a child due to abscess. Social History Information Source: Patient Lives with: Alone Smoking Status: Current Every Day Smoker Cigarettes Packs Per Day: 5 Electronic Cigarette use?: No Last Time Smoked: 08/01/2019 Frequency of Alcohol Use: Heavy - Denies current use of alcohol but has a history of heavy alcohol usage/abuse Hx Recreational Drug Use: Yes Drugs: Cocaine Hx Prescription Drug Abuse: Yes - Advance Directive Resuscitation Status: Full Code Family History Family History: DM - Father, Hypertension - Father Parental Family History Reviewed: Yes Children Family History Reviewed: Yes Sibling(s) Family History Reviewed.: Yes Medication/Allergy Home Medications: Gabapentin 300 mg PO QID 06/15/19 Losartan Potassium [Cozaar 100 mg Tablet] 50 mg PO DAILY 06/15/19 Insulin Lispro [Humalog Insulin (Lispro) 100 unit/mL] 5 unit SUBCUT AC #3 vial 06/18/19 Insulin Glargine,Hum.rec.anlog [Lantus Insulin 100 Unit/1 ml 10 ml] 25 unit SUBCUT DAILY 08/03/19 Allergies/Adverse Reactions: No Known Allergies Allergy (Verified 06/08/17 20:19) Review of Systems All systems: reviewed and no additional remarkable complaints except as stated Review of Systems: Constitutional: ABSENT: chills, fever(s), headache(s), weight gain, weight loss; admits fatigue feeling tired and sleepy Eyes: ABSENT: visual disturbances Ears: ABSENT: hearing changes Cardiovascular: ABSENT: chest pain, dyspnea on exertion, edema, orthropnea, palpitations Respiratory: ABSENT: cough, dyspnea, hemoptysis Gastrointestinal: ABSENT: abdominal pain, constipation, diarrhea, hematemesis, hematochezia, nausea, vomiting Genitourinary: ABSENT: dysuria, hematuria Musculoskeletal: ABSENT: joint swelling Integumentary: ABSENT: rash, wounds Neurological: ABSENT: abnormal gait, abnormal speech, confusion, focal weakness, numbness, syncope; reports occasional unsteadiness and dizziness. Psychiatric: ABSENT: anxiety, depression Endocrine: ABSENT: cold intolerance, heat intolerance, polydipsia, polyuria Hematologic/Lymphatic: ABSENT: easy bleeding, easy bruising, lymphadenopathy Physical Exam Vital Signs: Temp Pulse Resp BP Pulse Ox 97.6 F 102 H 18 126/84 H 98 08/07/19 11:45 08/07/19 12:39 08/07/19 11:45 08/07/19 12:39 08/07/19 12:39 Intake & Output 08/06/19 08/07/19 08/08/19 06:59 06:59 06:59 Intake Total 2576 1642 780 Output Total 200 1000 Balance 2376 642 780 Weight 48.4 kg 48.1 kg 48.1 kg Exam: General appearance: No acute distress, cooperative, fairly developed, fairly nourished Head exam: PRESENT: atraumatic, normocephalic Eye exam: PRESENT: Conjunctiva pale, EOMI, PERRLA. ABSENT: conjunctival injection, scleral icterus Mouth exam: PRESENT: moist, neck supple, tongue midline Neck exam: PRESENT: full ROM. ABSENT: carotid bruit, JVD, lymphadenopathy, thyromegaly Respiratory exam: PRESENT: clear to auscultation bilaterally. ABSENT: rales, rhonchi, stridor, wheezes Cardiovascular exam: PRESENT: RRR, +S1, +S2. ABSENT: systolic murmur Pulses: PRESENT: normal radial pulses, normal dorsalis pedis pulses GI/Abdominal exam: PRESENT: normal bowel sounds, soft. ABSENT: guarding, mass, tenderness Rectal exam: Deferred Extremities exam: PRESENT: full ROM. ABSENT: calf tenderness, pedal edema Musculoskeletal: PRESENT: full ROM. ABSENT: deformity Neurological exam: PRESENT: alert, Awake, Oriented to person, Oriented to place, Oriented to time, reflexes normal, CN II-XII grossly intact. ABSENT: motor sensory deficit Psychiatric exam: PRESENT: appropriate affect, normal mood. ABSENT: homicidal ideation, suicidal ideation Skin exam: PRESENT: intact, dry, warm. Fair skin turgor ABSENT: rash Results Laboratory Results: 08/07/19 04:34 08/07/19 04:34 08/06/19 08/06/19 08/06/19 14:55 14:55 14:55 WBC RBC Hgb Hct MCV MCH MCHC RDW Plt Count Seg Neutrophils % Retic Count (auto) 0.57 L Sodium Potassium Chloride Carbon Dioxide Anion Gap BUN Creatinine Est GFR ( Amer) Glucose Calcium Magnesium Iron 40.8 L TIBC 260 % Saturation 16 Transferrin 184.31 L Ferritin 343.00 Total Bilirubin AST Alkaline Phosphatase Total Protein Albumin Vitamin B12 759.0 Folate 6.21 08/07/19 08/07/19 04:34 04:34 WBC 1.6 L RBC 3.01 L Hgb 9.9 L Hct 28.5 L MCV 95 MCH 32.8 MCHC 34.6 RDW 14.3 H Plt Count 129 L Seg Neutrophils % Not Reportable Retic Count (auto) Sodium 130.1 L Potassium 4.2 Chloride 93 L Carbon Dioxide 36 H Anion Gap 1 L BUN 22 H Creatinine 0.75 Est GFR ( Amer) > 60 Glucose 101 Calcium 8.5 Magnesium 1.9 Iron TIBC % Saturation Transferrin Ferritin Total Bilirubin 0.2 AST 1203 H Alkaline Phosphatase 263 H Total Protein 4.9 L Albumin 2.5 L Vitamin B12 Folate 08/05/19 13:35 NT-Pro-B Natriuret Pep 1520 H Impressions: Abdomen Ultrasound 08/05/19 00:00 IMPRESSION: No sonographic abnormality of the right upper quadrant abdomen. Assessment & Plan - Diagnosis (1) Hyponatremia Is this a current diagnosis for this admission?: Yes Plan: Patient sodium level is not significantly changed from admission. It is in fact quite stable. He appears to be euvolemic. Initial work-up thyroid function and cortisol level with urinary osmolality of 522 and urine sodium of 61 with SIADH. He does not appear to be symptomatic from it. This may be chronic. I would just recommend free water restriction. Does not warrant any medication at this point for his lung disease sodium around 130 and above. Advised patient regarding water restriction. - Notes Notes: Discussed with Josefina Mancilla. Thank you very much for this consultation. - Time Time Spent: 50 to 70 Minutes
[2019-08-08] MEDS: NORMAL SALINE 1000 ML 1,000 ML IV PRN ×3 (03:40→22:45)
[2019-08-08] MEDS: HEPARIN SOD (PORCINE) 5,000 UNIT/ML 1 ML VIAL SUBCUT SCH ×2 (06:44→13:12)
[2019-08-08 07:18] LABS: HEMATOCRIT 25.9 % (37.9-51.0); HEMOGLOBIN 8.9 g/dL (13.5-17.0); MEAN CORPUSCULAR HEMOGLOBIN 32.5 pg (27.0-33.4); MEAN CORPUSCULAR HGB CONC 34.2 g/dL (32.0-36.0); MEAN CORPUSCULAR VOLUME 95 fl (80-97); PLATELET COUNT 146 10^3/uL (150-450); RED BLOOD COUNT 2.73 10^6/uL (4.35-5.55); RED CELL DISTRIBUTION WIDTH 14.1 % (11.5-14.0); WHITE BLOOD COUNT 2.1 10^3/uL (4.0-10.5)
[2019-08-08 07:24] LABS: INTERNATIONAL RATION (INR) 0.83; PROTHROMBIN TIME 11.4 SEC (11.4-15.4)
[2019-08-08 07:45] LABS: ALBUMIN 2.2 g/dL (3.5-5.0); ALKALINE PHOSPHATASE 258 U/L (38-126); ASPARTATE AMINO TRANSFERASE 658 U/L (17-59); BILIRUBIN,TOTAL 0.1 mg/dL (0.2-1.3); BLOOD UREA NITROGEN 28 mg/dL (7-20); CALCIUM 8.3 mg/dL (8.4-10.2); GLUCOSE 124 mg/dL (75-110); POTASSIUM 3.9 mmol/L (3.6-5.0); TOTAL PROTEIN 4.8 g/dL (6.3-8.2)
[2019-08-08 07:51] LABS: CARBON DIOXIDE 32 mmol/L (22-30); CHLORIDE 95 mmol/L (98-107)
[2019-08-08 07:52] LABS: ANION GAP 3 (5-19)
--- NOTE | 2019-08-08 08:06 | PDOC CONSULTATION ---
Consultation Consult Date: 08/08/19 Provider Consulted: MICHELLE BOOGIE Consult reason:: Abnormal LFT History of Present Illness Admission Date/PCP: 08/03/19 04:19 [facility] History of Present Illness: AMPARO PHAN is a 53 year old male asked to see this patient for abnormal LFT, including elevated transaminases that have been trending up patient has a previous history of ETOH use Hepatitis panel indicates a positive Hep C antibody patient had normal ultrasound and no evidence of NAFLD patient does have uncontrolled DM with elevated A1C denies any other drug use T Bili is normal, AST to ALT ratio approx 3:1 elevated BNP as well alk phos is elevated indicating early passive congestion Past Medical History Cardiac Medical History: Reports: Congestive Heart Failure - Diastolic, Hypertension Pulmonary Medical History: Reports: None Denies: Asthma, Chronic Obstructive Pulmonary Disease (COPD) EENT Medical History: Reports: None Denies: Cataracts, Ears - Hearing aids Neurological Medical History: Reports: None, Ischemic CVA Denies: Hemorrhagic CVA, Seizures Endocrine Medical History: Reports: Diabetes Mellitus Type 1 Denies: Diabetes Mellitus Type 2, Hyperthyroidism, Hypothyroidism, Obesity Renal/ Medical History: Denies: Chronic Kidney Disease, Nephrolithiasis Malignancy Medical History: Reports: None GI Medical History: Reports: None Denies: Cirrhosis, Hepatitis, Peptic Ulcer Disease Musculoskeltal Medical History: Reports: None Denies: Arthritis, Gout Skin Medical History: Reports: None Denies: Eczema, Psoriasis Psychiatric Medical History: Reports: None, Alcohol Dependency, Substance Abuse, Tobacco Dependency Denies: Depression Traumatic Medical History: Reports: None Hematology: Denies: Anemia, Bleeding Tendencies Infectious Medical History: Reports: None Past Surgical History Past Surgical History: Reports: None, Other - Removal of part of a lung as a child due to abscess. Social History Lives with: Alone Smoking Status: Current Every Day Smoker Cigarettes Packs Per Day: 5 Electronic Cigarette use?: No Last Time Smoked: 08/01/2019 Frequency of Alcohol Use: Heavy - Denies current use of alcohol but has a history of heavy alcohol usage/abuse Hx Recreational Drug Use: Yes Drugs: Cocaine Hx Prescription Drug Abuse: Yes - Advance Directive Resuscitation Status: Full Code Family History Family History: DM, Hypertension. denies: CAD, Malignancy Parental Family History Reviewed: Yes Children Family History Reviewed: Unknown Sibling(s) Family History Reviewed.: Unknown Medication/Allergy Home Medications: Gabapentin 300 mg PO QID 05/07/20 Losartan Potassium [Cozaar 100 mg Tablet] 50 mg PO DAILY 06/15/19 Insulin Lispro [Humalog Insulin (Lispro) 100 unit/mL] 5 unit SUBCUT AC #3 vial 06/18/19 Insulin Glargine,Hum.rec.anlog [Lantus Insulin 100 Unit/1 ml 10 ml] 25 unit SUBCUT DAILY 08/03/19 Allergies/Adverse Reactions: No Known Allergies Allergy (Verified 06/08/17 20:19) Review of Systems Constitutional: ABSENT: fever(s), headache(s), night sweats Eyes: ABSENT: visual disturbances Ears: ABSENT: hearing changes Cardiovascular: ABSENT: orthropnea Respiratory: ABSENT: dyspnea, hemoptysis Gastrointestinal: ABSENT: hematochezia, melena, nausea, vomiting Genitourinary: ABSENT: dysuria, hematuria Musculoskeletal: ABSENT: deformity, joint swelling Neurological: ABSENT: syncope, tingling, tremor(s), vertigo Endocrine: PRESENT: polydipsia, polyphagia, polyuria Hematologic/Lymphatic: ABSENT: easy bruising, lymphadenopathy Physical Exam Vital Signs: Temp Pulse Resp BP Pulse Ox 97.7 F 77 16 153/86 H 99 08/08/19 04:09 08/08/19 04:09 08/08/19 04:09 08/08/19 04:09 08/08/19 04:09 Intake & Output 08/07/19 08/08/19 08/09/19 06:59 06:59 06:59 Intake Total 1642 3120 Output Total 1000 750 Balance 642 2370 Weight 48.1 kg 48.8 kg General appearance: PRESENT: no acute distress, well-developed, well-nourished Head exam: PRESENT: atraumatic, normocephalic Eye exam: PRESENT: EOMI, PERRLA. ABSENT: scleral icterus Mouth exam: PRESENT: moist, neck supple Throat exam: ABSENT: tonsillogmegaly Neck exam: ABSENT: meningismus, tenderness, thyromegaly Respiratory exam: PRESENT: symmetrical. ABSENT: tachypnea, unlabored, wheezes Cardiovascular exam: PRESENT: +S2. ABSENT: RRR, +S1 GI/Abdominal exam: PRESENT: Patel's sign, normal bowel sounds. ABSENT: organolmegaly, rebound Extremities exam: ABSENT: joint swelling Musculoskeletal exam: PRESENT: full ROM Neurological exam: PRESENT: alert, awake, CN II-XII grossly intact Skin exam: PRESENT: normal color. ABSENT: pallor, urticaria, vesicles Results Laboratory Results: 08/08/19 06:14 08/08/19 06:14 08/08/19 08/08/19 06:14 06:14 WBC 2.1 L RBC 2.73 L Hgb 8.9 L Hct 25.9 L MCV 95 MCH 32.5 MCHC 34.2 RDW 14.1 H Plt Count 146 L Sodium 130.3 L Potassium 3.9 Chloride 95 L Carbon Dioxide 32 H Anion Gap 3 L BUN 28 H Creatinine 0.84 Est GFR ( Amer) > 60 Glucose 124 H Calcium 8.3 L Total Bilirubin 0.1 L AST 658 H Alkaline Phosphatase 258 H Total Protein 4.8 L Albumin 2.2 L 08/05/19 13:35 NT-Pro-B Natriuret Pep 1520 H Impressions: Abdomen Ultrasound 08/05/19 00:00 IMPRESSION: No sonographic abnormality of the right upper quadrant abdomen. Assessment & Plan - Diagnosis (1) Abnormal liver function test Plan: elevated transaminases with AST to ALT ratio approx 3:1 ? if there was some ETOH use possibility of AST and ALT secondary to possible to muscle and with abnormal kidney function ? if there was some Rhabdo involved as well, ? worthwhile to check CPK but with elevated Hep C antibody would check for hep C RNA level and possible genotype as well will follow along - Time Time Spent: 50 to 70 Minutes
--- NOTE | 2019-08-08 09:02 | PDOC PROGRESS REPORT ---
Subjective Progress Note for:: 08/08/19 Subjective:: Patient without complaints today. Just complains of weakness. He states that he cannot walk because of the IV. Reason For Visit: HYPOKALEMIA,METABOLIC ACIDOSIS,DIABETES MELLITUS Physical Exam Vital Signs: Temp Pulse Resp BP Pulse Ox 97.8 F 72 16 157/96 H 98 08/08/19 07:44 08/08/19 07:44 08/08/19 07:44 08/08/19 07:44 08/08/19 07:44 Intake & Output 08/07/19 08/08/19 08/09/19 06:59 06:59 06:59 Intake Total 1642 3120 Output Total 1000 750 Balance 642 2370 Weight 48.1 kg 48.8 kg General appearance: PRESENT: no acute distress, thin Head exam: PRESENT: normocephalic Eye exam: PRESENT: EOMI Respiratory exam: PRESENT: unlabored Neurological exam: PRESENT: alert, awake Psychiatric exam: PRESENT: appropriate affect Skin exam: PRESENT: normal color Results Laboratory Results: 08/08/19 06:14 08/08/19 06:14 08/08/19 08/08/19 06:14 06:14 WBC 2.1 L RBC 2.73 L Hgb 8.9 L Hct 25.9 L MCV 95 MCH 32.5 MCHC 34.2 RDW 14.1 H Plt Count 146 L Sodium 130.3 L Potassium 3.9 Chloride 95 L Carbon Dioxide 32 H Anion Gap 3 L BUN 28 H Creatinine 0.84 Est GFR ( Amer) > 60 Glucose 124 H Calcium 8.3 L Total Bilirubin 0.1 L AST 658 H Alkaline Phosphatase 258 H Total Protein 4.8 L Albumin 2.2 L 08/05/19 13:35 NT-Pro-B Natriuret Pep 1520 H Impressions: Abdomen Ultrasound 08/05/19 00:00 IMPRESSION: No sonographic abnormality of the right upper quadrant abdomen. Assessment & Plan - Diagnosis (1) DKA (diabetic ketoacidoses) Qualifiers: Diabetes mellitus type: type 1 Diabetes mellitus complication detail: without coma Qualified Code(s): E10.10 - Type 1 diabetes mellitus with ketoacidosis without coma Is this a current diagnosis for this admission?: Yes (2) Neutropenia Is this a current diagnosis for this admission?: Yes Plan: His WBC and PLT have improved since yesterday. HGB about the same. I believe that this is reactive to the underlying cause of his LFTs, etc. His HIV was negative HCV Ab was positive. GI has been consulted. Will wait a few more days, as this appears to be improving on it's own. However, if neutropenia continues by Wednesday, will plan bone marrow biopsy. (3) Transaminitis Is this a current diagnosis for this admission?: Yes Plan: GI following. Suspect some degree of alcohol involvement. - Time Time Spent with patient: Less than 15 minutes
[2019-08-08] MEDS: INSULIN LISPRO 100 UNIT/ML 3 ML VIAL SUBCUT SCH ×4 (10:05→22:44)
[2019-08-08] MEDS: LOSARTAN POTASSIUM 50 MG TABLET PO SCH (10:17)
[2019-08-08] MEDS: GABAPENTIN 300 MG CAPSULE PO SCH ×4 (10:17→22:41)
[2019-08-08] MEDS: FAMOTIDINE 20 MG TABLET PO SCH ×2 (10:17→22:41)
[2019-08-08] MEDS: CYANOCOBALAMIN (VITAMIN B-12) INJ 1000 MCG/1 ML VIAL IM SCH (10:17)
[2019-08-08] MEDS: DOCUSATE SODIUM 100 MG CAPSULE PO SCH ×2 (10:18→17:57)
[2019-08-08] MEDS: HYDRALAZINE HCL INJ/PF 20 MG/1 ML SDV IV PRN (12:15)
--- NOTE | 2019-08-08 14:49 | PDOC PROGRESS REPORT ---
Subjective Progress Note for:: 08/08/19 Subjective:: AMPARO PHAN is a 53 year old male with a past medical history of CHF, hypertension, diabetes, polysubstance abuse, chronic malnutrition, hepatitis C who was admitted 08/03/2027 with DKA. Patient was seen on morning rounds. He is found resting in bed comfortably on room air. He reports that he is feeling well today. He has no new questions or concerns today. Specifically denies fever, chills, chest pain, palpitations, dyspnea, abdominal pain, nausea vomiting diarrhea. No concerns per nursing. Reason For Visit: HYPOKALEMIA,METABOLIC ACIDOSIS,DIABETES MELLITUS Physical Exam Vital Signs: Temp Pulse Resp BP Pulse Ox 97.8 F 73 16 183/99 H 98 08/08/19 11:23 08/08/19 11:23 08/08/19 11:23 08/08/19 11:23 08/08/19 11:23 Intake & Output 08/07/19 08/08/19 08/09/19 06:59 06:59 06:59 Intake Total 1642 3120 903 Output Total 1000 750 325 Balance 642 2370 578 Weight 48.1 kg 48.8 kg General appearance: PRESENT: no acute distress, cooperative, thin, well- developed Head exam: PRESENT: atraumatic, normocephalic Eye exam: PRESENT: conjunctiva pink, EOMI, PERRLA. ABSENT: scleral icterus Mouth exam: PRESENT: moist, tongue midline Teeth exam: PRESENT: poor dentation Respiratory exam: PRESENT: clear to auscultation baldemar, symmetrical, unlabored. ABSENT: rales, rhonchi, wheezes Cardiovascular exam: PRESENT: RRR. ABSENT: diastolic murmur, rubs, systolic murmur GI/Abdominal exam: PRESENT: normal bowel sounds, soft. ABSENT: distended, guarding, mass, organolmegaly, rebound, tenderness Rectal exam: PRESENT: deferred Extremities exam: PRESENT: full ROM. ABSENT: calf tenderness, clubbing, pedal edema Neurological exam: PRESENT: alert, awake, oriented to person, oriented to place, oriented to time, oriented to situation, CN II-XII grossly intact. ABSENT: motor sensory deficit Psychiatric exam: PRESENT: appropriate affect, normal mood. ABSENT: homicidal ideation, suicidal ideation Skin exam: PRESENT: dry, intact, warm. ABSENT: cyanosis, rash Results Laboratory Results: 08/08/19 06:14 08/08/19 06:14 08/08/19 08/08/19 06:14 06:14 WBC 2.1 L RBC 2.73 L Hgb 8.9 L Hct 25.9 L MCV 95 MCH 32.5 MCHC 34.2 RDW 14.1 H Plt Count 146 L Sodium 130.3 L Potassium 3.9 Chloride 95 L Carbon Dioxide 32 H Anion Gap 3 L BUN 28 H Creatinine 0.84 Est GFR ( Amer) > 60 Glucose 124 H Calcium 8.3 L Total Bilirubin 0.1 L AST 658 H Alkaline Phosphatase 258 H Total Protein 4.8 L Albumin 2.2 L 08/05/19 08/08/19 13:35 06:14 Creatine Kinase 38 L NT-Pro-B Natriuret Pep 1520 H Impressions: Abdomen Ultrasound 08/05/19 00:00 IMPRESSION: No sonographic abnormality of the right upper quadrant abdomen. Assessment and Plan - Diagnosis (1) Transaminitis Is this a current diagnosis for this admission?: Yes Plan: Liver enzymes are improved today GGT 759. AST 52-> 686-> 1203-> 658 ALT 47-> 200-> 490-> 411 Liver ultrasound is benign. PT/INR WNL. HIV negative. CK nml Hep C (+) Hep C RNA and genotyping pending. Patient denies any hepatotoxic substance ingestion, and has not received any new medication on this hospitalization except for his regular home meds and insulin. Former alcoholic. History of polysubstance abuse. Avoid hepatotoxic meds. Gastroenterology consulted; appreciate Dr. Mooney's recommendations. Resume gentle IVF Follow up CMP (2) Neutropenia Is this a current diagnosis for this admission?: Yes Plan: Gradual improvement. Afebrile. No sign of infection. Patient also has anemia and thrombocytopenia which are chronic however neutropenia is new. HIV negative Hep C positive. Pending CMV and EBV serology. Possibly due to profound malnutrition. Anemia panel unremarkable. Hematology consulted. Considering bone marrow biopsy if does not resolve over the next few days. (3) Hyponatremia Is this a current diagnosis for this admission?: Yes Plan: Mild improvement; stable at 130.3 Chronic. Multifactorial. Euvolemic hyponatremia. Urine osmolarity 522. Sodium 61. TSH WNL. Random cortisol WNL. Mildly so vated BNP. Advised patient to cut down on his fluid intake. Fluid restriction. Neurology consulted; discussed with Dr. Villalobos. 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 Does not believe that the patient requires further aggressive management or interventions. Encourage fluid restriction. Remaining evaluation per her expertise. Follow-up chemistry. (4) Chronic diastolic congestive heart failure Is this a current diagnosis for this admission?: Yes Plan: Compensated. Continue home dose losartan. Start low dose Coreg. Holding atorvastatin secondary to elevated LFTs. Cardiac diet. (5) Malnutrition Qualifiers: Malnutrition type: protein-calorie malnutrition Protein-calorie mal nutrition severity: moderate Qualified Code(s): E44.0 - Moderate protein- calorie malnutrition Is this a current diagnosis for this admission?: Yes Plan: BMI 16.1. Prealbumin 16.4. Unfortunately patient is homeless and also has history of polysubstance abuse. This is most likely due to low p.o. intake. Patient admitting to not eating much with his diabetes not controlled he feels too weak to prepare food. Registered dietitian and discharge planning has been consulted. Continue nutritional support. (6) Diabetes mellitus Qualifiers: Diabetes mellitus type: type 2 Diabetes mellitus usp insulin use: with usp use Diabetes mellitus complication status: with hyperglycemia Qualified Code(s): E11.65 - Type 2 diabetes mellitus with hyperglycemia; Z79.4 - FCI (current) use of insulin Is this a current diagnosis for this admission?: Yes Plan: History of uncontrolled diabetes mellitus. Hemoglobin A1c more than 12%. Diabetic diet, basal, sliding scale and correctional insulin. Hypoglycemic protocol. Accu-Chek. Diabetic education. (7) Hypertension Qualifiers: Hypertension type: essential hypertension Qualified Code(s): I10 - Essential (primary) hypertension Is this a current diagnosis for this admission?: Yes Plan: Elevated BP today. Continue home dose Losartan. Start low dose Coreg. IV hydralazine as needed for blood pressure control. Cardiac diet. (8) Polysubstance abuse Is this a current diagnosis for this admission?: Yes Plan: Monitor for withdrawals. Supportive measures. Urine tox negative on this admission. (9) DKA (diabetic ketoacidoses) Qualifiers: Diabetes mellitus type: type 1 Diabetes mellitus complication detail: without coma Qualified Code(s): E10.10 - Type 1 diabetes mellitus with ketoacidosis without coma Is this a current diagnosis for this admission?: Yes Plan: Resolved. Received generous IV fluids, bicarb drip, and insulin drip for glucose and electrolyte correction. Now on subcutaneous insulin with adequate blood sugar control. - Time Time Spent with patient: 25-34 minutes Medications reviewed and adjusted accordingly: Yes Anticipated discharge: Home
[2019-08-08] MEDS: CARVEDILOL 6.25 MG TABLET PO SCH (22:41)
[2019-08-08] MEDS: INSULIN GLARGINE,HUM.REC.ANLOG 1,000 UNIT/10 ML VIAL SUBCUT SCH (22:42)
[2019-08-09] MEDS: HEPARIN SOD (PORCINE) 5,000 UNIT/ML 1 ML VIAL SUBCUT SCH ×3 (01:03→14:14)
[2019-08-09 08:23] LABS: HEMATOCRIT 26.7 % (37.9-51.0); HEMOGLOBIN 9.2 g/dL (13.5-17.0); MEAN CORPUSCULAR HEMOGLOBIN 33.4 pg (27.0-33.4); MEAN CORPUSCULAR HGB CONC 34.4 g/dL (32.0-36.0); MEAN CORPUSCULAR VOLUME 97 fl (80-97); PLATELET COUNT 157 10^3/uL (150-450); RED BLOOD COUNT 2.75 10^6/uL (4.35-5.55); RED CELL DISTRIBUTION WIDTH 14.9 % (11.5-14.0); WHITE BLOOD COUNT 2.5 10^3/uL (4.0-10.5)
[2019-08-09] MEDS: INSULIN LISPRO 100 UNIT/ML 3 ML VIAL SUBCUT SCH ×3 (08:25→17:11)
[2019-08-09 08:47] LABS: ALBUMIN 2.5 g/dL (3.5-5.0); ALKALINE PHOSPHATASE 285 U/L (38-126); ASPARTATE AMINO TRANSFERASE 431 U/L (17-59); BILIRUBIN,TOTAL 0.2 mg/dL (0.2-1.3); BLOOD UREA NITROGEN 29 mg/dL (7-20); CALCIUM 8.3 mg/dL (8.4-10.2); GLUCOSE 281 mg/dL (75-110); POTASSIUM 4.5 mmol/L (3.6-5.0); TOTAL PROTEIN 4.7 g/dL (6.3-8.2)
[2019-08-09] MEDS: NORMAL SALINE 1000 ML 1,000 ML IV PRN (08:50)
[2019-08-09 08:53] LABS: CARBON DIOXIDE 30 mmol/L (22-30); CHLORIDE 97 mmol/L (98-107)
[2019-08-09 09:06] LABS: ANION GAP 2 (5-19)
[2019-08-09] MEDS: GABAPENTIN 300 MG CAPSULE PO SCH ×2 (11:51→14:14)
[2019-08-09] MEDS: FAMOTIDINE 20 MG TABLET PO SCH (11:51)
[2019-08-09] MEDS: CARVEDILOL 6.25 MG TABLET PO SCH (11:51)
[2019-08-09] MEDS: CYANOCOBALAMIN (VITAMIN B-12) INJ 1000 MCG/1 ML VIAL IM SCH (11:52)
[2019-08-09] MEDS: DOCUSATE SODIUM 100 MG CAPSULE PO SCH (11:55)
[2019-08-09] MEDS: LOSARTAN POTASSIUM 50 MG TABLET PO SCH (12:22)
[2019-08-09 16:54] VITALS: BP 150/82
--- NOTE | 2019-08-10 18:20 | PDOC DISCHARGE SUMMARY ---
Impression - Admit/DC Date/PCP Admission Date/Primary Care Provider: 08/03/19 04:19 [facility] Discharge Date: 08/10/19 - Discharge Diagnosis (1) Transaminitis Is this a current diagnosis for this admission?: Yes (2) Neutropenia Is this a current diagnosis for this admission?: Yes (3) Hyponatremia Is this a current diagnosis for this admission?: Yes (4) Chronic diastolic congestive heart failure Is this a current diagnosis for this admission?: Yes (5) Malnutrition Is this a current diagnosis for this admission?: Yes (6) Diabetes mellitus Is this a current diagnosis for this admission?: Yes (7) Hypertension Is this a current diagnosis for this admission?: Yes (8) Polysubstance abuse Is this a current diagnosis for this admission?: Yes (9) DKA (diabetic ketoacidoses) Is this a current diagnosis for this admission?: Yes - Additional Information Resuscitation Status: Full Code Discharge Diet: Diabetic Discharge Activity: Activity As Tolerated, Balance Activity w/Rest Referrals: [facility] [Primary Care Provider] - (someone will call you with your appointment.) Prescriptions: Carvedilol [Coreg 6.25 mg Tablet] 6.25 mg PO Q12 #60 tablet Insulin Lispro [Humalog Kwikpen U-100] 1 - 12 unit SQ ACHS PRN #1 insuln.pen PRN Reason: Insulin Glargine,Hum.rec.anlog [Lantus Insulin 100 Unit/mL Insulin Pen] 18 unit SUBCUT QHS #1 pen Nicotine [Nicoderm 21 mg/24 Hr Transderm Patch] 1 each TD DAILYP PRN #30 patch.td24 PRN Reason: Pen Needle, Diabetic [Pen Needle] 120 each MC ASDIR PRN #120 dis.needle PRN Reason: Famotidine [Pepcid 20 mg Tablet] 20 mg PO Q12 #60 tablet Home Medications: Gabapentin 300 mg PO QID 06/15/19 Losartan Potassium [Cozaar 100 mg Tablet] 50 mg PO DAILY 06/15/19 Acetaminophen [Tylenol 325 mg Tablet] 650 mg PO Q4HP PRN tablet 08/09/19 Carvedilol [Coreg 6.25 mg Tablet] 6.25 mg PO Q12 #60 tablet 08/09/19 Famotidine [Pepcid 20 mg Tablet] 20 mg PO Q12 #60 tablet 08/09/19 Insulin Glargine,Hum.rec.anlog [Lantus Insulin 100 Unit/mL Insulin Pen] 18 unit SUBCUT QHS #1 pen 08/09/19 Insulin Lispro [Humalog Kwikpen U-100] 1 - 12 unit SQ ACHS PRN #1 insuln.pen 08/09/19 Nicotine [Nicoderm 21 mg/24 Hr Transderm Patch] 1 each TD DAILYP PRN #30 patch.td24 08/09/19 Pen Needle, Diabetic [Pen Needle] 120 each MC ASDIR PRN #120 dis.needle 08/09/19 History of Present Illiness History of Present Illness: Per H&P by Dr. Topete: AMPARO PHAN is a 53 year old male who presented to the emergency room with acute hyperglycemia. He admits that his blood sugar has been gradually rising over the afternoon into the evening resulting in him presenting to the emergency room for evaluation. He admitted that, though he had not checked his blood sugar at home, he knew it was high from he has experience with diabetes and his high blood sugar was typically accompanied by nausea. He denies other associated or accompanying signs and symptoms. He admits numerous prior similar episodes related to his diabetes and DKA. He has not identified any aggravating or ameliorating factors for his acute hyperg lycemia. In the emergency room he was somewhat belligerent with the staff and was noted to be moderately hyperglycemic with a metabolic acidosis and a significant anion gap. He was initially treated with IV fluids in the emergency room and subsequently admitted to the hospital for further evaluation and treatment. Hospital Course Hospital Course: (1) Transaminitis Continue to improve. AST 52-> 686-> 1203-> 658 ALT 47-> 200-> 490-> 411 Liver ultrasound is benign. PT/INR WNL. HIV negative. CK nml Hep C (+) Hep C RNA and genotyping pending. Patient denies any hepatotoxic substance ingestion, and has not received any new medication on this hospitalization except for his regular home meds and insulin. Former alcoholic. History of polysubstance abuse. Gastroenterology outpatient follow up. (2) Neutropenia Continues to improve. Afebrile. No sign of infection. Patient also has anemia and thrombocytopenia which are chronic however neutropenia is new. HIV negative Hep C positive. Pending CMV and EBV serology. Anemia panel unremarkable. Hematology consulted. Discussed w/ Dr. Perdomo. Likely reactive to acute illness; DKA and Hep C. Recommends repeat labs by outpatient PCP; if not improved, Hematology and GI referrals. (3) Hyponatremia Chronic; stable. Multifactorial. Euvolemic hyponatremia. Urine osmolarity 522. Sodium 61. TSH WNL. Random cortisol WNL. Mildly elevated BNP. Advised patient to cut down on his fluid intake. Neurology consulted; discussed with Dr. Villalobos. 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 Does not believe that the patient requires further aggressive management or interventions. (4) Chronic diastolic congestive heart failure Compensated. Continue home dose losartan. Start low dose Coreg. Discontinue atorvastatin secondary to elevated LFTs. Cardiac diet. (5) Malnutrition BMI 16.1. Prealbumin 16.4. Registered dietitian and discharge planning has been consulted. (6) Diabetes mellitus History of uncontrolled diabetes mellitus. Hemoglobin A1c more than 12%. Continue long acting and sliding scale insulin at discharge. Diabetic education. Close PCP follow up. (7) Hypertension Continue home dose Losartan. Start low dose Coreg. Cardiac diet. (8) Polysubstance abuse Monitor for withdrawals. Supportive measures. Urine tox negative on this admission. (9) DKA (diabetic ketoacidoses) Resolved. Received generous IV fluids, bicarb drip, and insulin drip for glucose and electrolyte correction. Now on subcutaneous insulin with adequate blood sugar control. Physical Exam Vital Signs: Temp Pulse Resp BP Pulse Ox 97.3 F 81 20 150/82 H 98 08/09/19 16:35 08/09/19 16:35 08/09/19 16:35 08/09/19 16:35 08/09/19 16:35 Intake & Output 08/09/19 08/10/19 08/11/19 06:59 06:59 06:59 Intake Total 2563 1150 Output Total 625 1100 Balance 1938 50 Weight 51.3 kg General appearance: PRESENT: no acute distress, cooperative, thin, well- developed Head exam: PRESENT: atraumatic, normocephalic Eye exam: PRESENT: conjunctiva pink, EOMI, PERRLA. ABSENT: scleral icterus Mouth exam: PRESENT: moist, tongue midline Teeth exam: PRESENT: poor dentation Respiratory exam: PRESENT: clear to auscultation baldemar, symmetrical, unlabored. ABSENT: rales, rhonchi, wheezes Cardiovascular exam: PRESENT: RRR. ABSENT: diastolic murmur, rubs, systolic murmur Vascular exam: PRESENT: normal capillary refill Extremities exam: PRESENT: full ROM. ABSENT: calf tenderness, clubbing, pedal edema, +1 edema Musculoskeletal exam: PRESENT: ambulatory Neurological exam: PRESENT: alert, awake, oriented to person, oriented to place, oriented to time, oriented to situation, CN II-XII grossly intact. ABSENT: motor sensory deficit Psychiatric exam: PRESENT: appropriate affect, normal mood. ABSENT: homicidal ideation, suicidal ideation Skin exam: PRESENT: dry, intact, warm. ABSENT: cyanosis, rash Results Laboratory Results: WBC 2.5 10^3/uL (4.0-10.5) L 08/09/19 07:39 RBC 2.75 10^6/uL (4.35-5.55) L 08/09/19 07:39 Hgb 9.2 g/dL (13.5-17.0) L 08/09/19 07:39 Hct 26.7 % (37.9-51.0) L 08/09/19 07:39 MCV 97 fl (80-97) 08/09/19 07:39 MCH 33.4 pg (27.0-33.4) 08/09/19 07:39 MCHC 34.4 g/dL (32.0-36.0) 08/09/19 07:39 RDW 14.9 % (11.5-14.0) H 08/09/19 07:39 Plt Count 157 10^3/uL (150-450) 08/09/19 07:39 Lymph % (Auto) Not Reportable 08/07/19 04:34 [place] % (Auto) Not Reportable 08/07/19 04:34 Eos % (Auto) Not Reportable 08/07/19 04:34 Baso % (Auto) Not Reportable 08/07/19 04:34 Reticulocyte # 0.017 10^6/uL (0.028-0.122) L 08/06/19 14:55 Absolute Neuts (auto) Not Reportable 08/07/19 04:34 Absolute Lymphs (auto) Not Reportable 08/07/19 04:34 Absolute Monos (auto) Not Reportable 08/07/19 04:34 Absolute Eos (auto) Not Reportable 08/07/19 04:34 Absolute Basos (auto) Not Reportable 08/07/19 04:34 Total Counted 50 08/07/19 04:34 Seg Neutrophils % Not Reportable 08/07/19 04:34 Seg Neuts % (Manual) 38 % (42-78) L 08/07/19 04:34 Lymphocytes % (Manual) 48 % (13-45) H 08/07/19 04:34 Monocytes % (Manual) 8 % (3-13) 08/07/19 04:34 Eosinophils % (Manual) 6 % (0-6) 08/07/19 04:34 Basophils % (Manual) 0 % (0-2) 08/07/19 04:34 Abs Neuts (Manual) 0.6 10^3/uL (1.7-8.2) L 08/07/19 04:34 Abs Lymphs (Manual) 0.8 10^3/uL (0.5-4.7) 08/07/19 04:34 Abs Monocytes (Manual) 0.1 10^3/uL (0.1-1.4) 08/07/19 04:34 Absolute Eos (Manual) 0.1 10^3/uL (0.0-0.6) 08/07/19 04:34 Abs Basophils (Manual) 0.0 10^3/uL (0.0-0.2) 08/07/19 04:34 Platelet Comment ADEQUATE 08/07/19 04:34 Polychromasia 1+ 08/07/19 04:34 Anisocytosis 1+ 08/07/19 04:34 RBC Morph Comment NORMO-CYTIC/CHROMIC 08/06/19 04:05 Retic Count (auto) 0.57 % (0.66-2.85) L 08/06/19 14:55 PT 11.4 SEC (11.4-15.4) 08/08/19 06:14 INR 0.83 08/08/19 06:14 VBG pH 7.25 (7.30-7.42) L 08/03/19 02:53 VBG pCO2 23.0 mmHg (35-63) L 08/03/19 02:53 VBG HCO3 9.8 mmol/L (20-32) L 08/03/19 02:53 VBG Base Excess -15.7 mmol/L 08/03/19 02:53 Sodium 129.3 mmol/L (137-145) L 08/09/19 07:39 Potassium 4.5 mmol/L (3.6-5.0) 08/09/19 07:39 Chloride 97 mmol/L (98-107) L 08/09/19 07:39 Carbon Dioxide 30 mmol/L (22-30) 08/09/19 07:39 Anion Gap 2 (5-19) L 08/09/19 07:39 BUN 29 mg/dL (7-20) H 08/09/19 07:39 Creatinine 0.80 mg/dL (0.52-1.25) 08/09/19 07:39 Est GFR ( Amer) > 60 (>60) 08/09/19 07:39 Est GFR (MDRD) Non-Af > 60 (>60) 08/09/19 07:39 Glucose 281 mg/dL (75-110) H 08/09/19 07:39 POC Glucose 351 mg/dL (70-110) H 08/09/19 16:23 Hemoglobin A1c % 12.6 % (4.7-6.0) H 08/04/19 05:22 Calcium 8.3 mg/dL (8.4-10.2) L 08/09/19 07:39 Magnesium 1.9 mg/dL (1.6-2.3) 08/07/19 04:34 Iron 40.8 ug/dL (49-181) L 08/06/19 14:55 TIBC 260 ug/dL (250-450) 08/06/19 14:55 % Saturation 16 % 08/06/19 14:55 Transferrin 184.31 mg/dL (206.00-381.00) L 08/06/19 14:55 Ferritin 343.00 ng/mL (17.9-464.0) 08/06/19 14:55 Total Bilirubin 0.2 mg/dL (0.2-1.3) 08/09/19 07:39 Direct Bilirubin 0.0 mg/dL (0.0-0.4) 08/09/19 07:39 Neonat Total Bilirubin Not Reportable 08/09/19 07:39 Neonat Direct Bilirubin Not Reportable 08/09/19 07:39 Neonat Indirect Bili Not Reportable 08/09/19 07:39 GGT 759 U/L (8-78) H 08/06/19 04:05 AST 431 U/L (17-59) H 08/09/19 07:39 ALT 353 U/L (<50) H 08/09/19 07:39 Alkaline Phosphatase 285 U/L (38-126) H 08/09/19 07:39 Creatine Kinase 38 U/L (55-170) L 08/08/19 06:14 NT-Pro-B Natriuret Pep 1520 pg/mL (<125) H 08/05/19 13:35 Total Protein 4.7 g/dL (6.3-8.2) L 08/09/19 07:39 Albumin 2.5 g/dL (3.5-5.0) L 08/09/19 07:39 Prealbumin 16.4 mg/dL (17.6-36.0) L 08/05/19 05:35 Vitamin B12 759.0 pg/mL (239-931) 08/06/19 14:55 Folate 6.21 ng/mL (>2.76) 08/06/19 14:55 TSH 0.66 uIU/mL (0.47-4.68) 08/05/19 13:35 Random Cortisol 15.50 ug/dL (None Established) 08/06/19 04:05 Urine Color YELLOW 08/03/19 01:15 Urine Appearance CLEAR 08/03/19 01:15 Urine pH 5.0 (5.0-9.0) 08/03/19 01:15 Ur Specific [place] 1.016 08/03/19 01:15 Urine Protein 30 mg/dL (NEGATIVE) H 08/03/19 01:15 Urine Glucose (UA) >=500 mg/dL (NEGATIVE) H 08/03/19 01:15 Urine Ketones 80 mg/dL (NEGATIVE) H 08/03/19 01:15 Urine Blood NEGATIVE (NEGATIVE) 08/03/19 01:15 Urine Nitrite NEGATIVE (NEGATIVE) 08/03/19 01:15 Urine Bilirubin NEGATIVE (NEGATIVE) 08/03/19 01:15 Urine Urobilinogen NEGATIVE mg/dL (<2.0) 08/03/19 01:15 Ur Leukocyte Esterase NEGATIVE (NEGATIVE) 08/03/19 01:15 Urine WBC (Auto) 1 /HPF 08/03/19 01:15 Urine RBC (Auto) 0 /HPF 08/03/19 01:15 Urine Bacteria (Auto) TRACE /HPF 08/03/19 01:15 Squamous Epi Cells Auto <1 /HPF 08/03/19 01:15 Urine Mucus (Auto) RARE /LPF 08/03/19 01:15 Urine Osmolality 522 mOsm/kg (300-900) 08/05/19 12:10 Urine Sodium 61 mmol/L (30-90) 08/05/19 12:10 Urine Ascorbic Acid NEGATIVE (NEGATIVE) 08/03/19 01:15 Urine Opiates Screen NEGATIVE 08/03/19 01:15 Urine Methadone Screen NEGATIVE 08/03/19 01:15 Ur Barbiturates Screen NEGATIVE 08/03/19 01:15 Ur Phencyclidine Scrn NEGATIVE 08/03/19 01:15 Ur Amphetamines Screen NEGATIVE 08/03/19 01:15 U Benzodiazepines Scrn NEGATIVE 08/03/19 01:15 Urine Cocaine Screen NEGATIVE 08/03/19 01:15 U Marijuana (THC) Screen NEGATIVE 08/03/19 01:15 Hepatitis A IgM Ab Negative (Negative) 08/06/19 04:05 Hep Bs Antigen Negative (Negative) 08/06/19 04:05 Hep B Core IgM Ab Negative (Negative) 08/06/19 04:05 Hepatitis C Antibody >11.0 s/co ratio (0.0-0.9) H 08/06/19 04:05 HIV 1&2 Antibody NEGATIVE (NEGATIVE) 08/06/19 04:05 Slides for Path Review SEE COMMENT 08/06/19 04:05 08/05/19 13:35 NT-Pro-B Natriuret Pep 1520 H Impressions: Abdomen Ultrasound 08/05/19 00:00 IMPRESSION: No sonographic abnormality of the right upper quadrant abdomen. Plan Plan of Treatment: Patient is discharged home in stable condition. He is advised to follow-up with his primary care provider within 1 week. He is instructed to continue a diabetic diet. Take his insulin as prescribed. Return to the emergency department as needed for concerning symptoms. Time Spent: Greater than 30 Minutes Stroke Is this a Stroke Patient?: No Acute Heart Failure - Is this a Heart Failure Patient?: No
[2019-08-11 06:52] LABS: CMV DNA PCR QUANT Negative (Negative)
[2019-08-13 00:36] LABS: HEPATITIS C QUANTITATION 2400000 IU/mL (.)
== END 2019-08-09 17:20 | disposition home or self-care (01) | DRG 638 ==
LOC: ER 21:55 → EH 08-03 04:19 → 5 08-03 06:44
PROVIDERS: ADMIT Emergency Medicine; ATTEND Registered Nurse
DX: E10.10 Type 1 diabetes mellitus with ketoacidosis without coma (principal); I50.32 Chronic diastolic (congestive) heart failure; Z68.1 Body mass index [BMI] 19.9 or less, adult; E22.2 Syndrome of inappropriate secretion of antidiuretic hormone; E44.0 Moderate protein-calorie malnutrition; R74.0 Nonspecific elevation of levels of transaminase and lactic acid dehydrogenase [LDH]; D70.9 Neutropenia, unspecified; I11.0 Hypertensive heart disease with heart failure; F19.10 Other psychoactive substance abuse, uncomplicated; F10.21 Alcohol dependence, in remission; B19.20 Unspecified viral hepatitis C without hepatic coma; F17.210 Nicotine dependence, cigarettes, uncomplicated; Z79.4 Long term (current) use of insulin; Z86.73 Personal history of transient ischemic attack (TIA), and cerebral infarction without residual deficits; Z90.2 Acquired absence of lung [part of]; Z79.899 Other long term (current) drug therapy; Z59.0 Homelessness; Z83.3 Family history of diabetes mellitus; Z82.49 Family history of ischemic heart disease and other diseases of the circulatory system
CPT/HCPCS: 36415; 76705; 80048; 80053; 80074; 80307; 81001; 82533; 82550; 82607; 82728; 82746; 82803; 82962; 82977; 83036; 83540; 83550; 83735; 83880; 83935; 84134; 84300; 84443; 84466; 85025; 85027; 85045; 85610; 86701; 87070; 87496; 87522; 87799; 93976; 96361; 96365; 96366; 96375; 99285; J0360; J1644; J1815; J2405; J3420; J3480; J3490; J7030; J7060; J7120

== ENCOUNTER 2019-08-19 09:25 | Emergency (ER) | payer MEDICAID ==
[2019-08-19 10:12] LABS: ABSOLUTE BASOPHILS # (AUTO) 0.1 10^3/uL (0.0-0.2); ABSOLUTE LYMPHOCYTES (AUTO) 0.8 10^3/uL (0.5-4.7); ABSOLUTE MONOCYTES (AUTO) 0.3 10^3/uL (0.1-1.4); ABSOLUTE NEUT (AUTO) 3.5 10^3/uL (1.7-8.2); BASOPHILS % (AUTO) 2.2 % (0-2); EOSINOPHILS % (AUTO) 0.8 % (0-6); HEMATOCRIT 33.1 % (37.9-51.0); HEMOGLOBIN 11.4 g/dL (13.5-17.0); LYMPHOCYTES % (AUTO) 16.2 % (13-45); MEAN CORPUSCULAR HEMOGLOBIN 34.2 pg (27.0-33.4); MEAN CORPUSCULAR HGB CONC 34.5 g/dL (32.0-36.0); MEAN CORPUSCULAR VOLUME 99 fl (80-97); MONOCYTES % (AUTO) 5.5 % (3-13); PLATELET COUNT 242 10^3/uL (150-450); RED BLOOD COUNT 3.34 10^6/uL (4.35-5.55); SEGMENTED NEUTROPHILS % (AUTO) 75.3 % (42-78); TOTAL CELLS COUNTED % (AUTO) 100 %; WHITE BLOOD COUNT 4.6 10^3/uL (4.0-10.5)
[2019-08-19] MEDS ORDERED: NORMAL SALINE 500 ML IV ONE (10:27)
[2019-08-19 10:31] LABS: ALBUMIN 3.9 g/dL (3.5-5.0); ALKALINE PHOSPHATASE 313 U/L (38-126); ANION GAP 6 (5-19); ASPARTATE AMINO TRANSFERASE 321 U/L (17-59); BILIRUBIN,TOTAL 0.4 mg/dL (0.2-1.3); BLOOD UREA NITROGEN 34 mg/dL (7-20); CALCIUM 9.6 mg/dL (8.4-10.2); CARBON DIOXIDE 30 mmol/L (22-30); CHLORIDE 93 mmol/L (98-107); POTASSIUM 5.4 mmol/L (3.6-5.0)
--- NOTE | 2019-08-19 10:34 | ER Document Report ---
ED General - General Chief Complaint: High Blood Sugar Stated Complaint: ABNORMAL LABS Time Seen by Provider: 08/19/19 10:12 [facility] [NO [facility]AL MD[facility] - Follow up as needed TRAVEL OUTSIDE OF THE [place] IN LAST 30 DAYS: No - HPI Notes: Patient is a 53-year-old male who presents to the emergency department for evaluation of elevated blood glucose. He was admitted to the hospital for DKA. He states he was discharged on the first. He states he felt well for about 2 or 3 days, then he stated he started feeling poorly. He really cannot tell me what he means by that. I asked him what his blood sugars have been reading, he admits he has not checked them at all until his telehealth visit this morning with primary care. This morning it read high. The patient does admit to some polyuria. He states he has been taking his medications as prescribed. This morning for breakfast the patient had rice, tomatoes, eggs, kim, toast. He had no nausea or vomiting. He states he has had some intermittent swelling in his feet but it seems to go down in the mornings. He denies any chest pain, shortness of breath, or abdominal pain. - Related Data Allergies/Adverse Reactions: No Known Allergies Allergy (Verified 06/08/17 20:19) Home Medications: pepcid, carvedilol, lantus Past Medical History - General Information source: Patient, Relative - Social History Smoking Status: Current Every Day Smoker Chew tobacco use (# tins/day): No Frequency of alcohol use: None Drug Abuse: None Family History: DM, Hypertension. denies: CAD, Malignancy - Past Medical History Cardiac Medical History: Reports: Hx Congestive Heart Failure - Diastolic, Hx Hypertension Pulmonary Medical History: Denies: Hx Asthma, Hx COPD Neurological Medical History: Denies: Hx Seizures Endocrine Medical History: Reports: Hx Diabetes Mellitus Type 1. Denies: Hx Diabetes Mellitus Type 2, Hx Hyperthyroidism, Hx Hypothyroidism Renal/ Medical History: Reports: Hx Renal Insufficiency GI Medical History: Denies: Hx Cirrhosis, Hx Hepatitis Musculoskeletal Medical History: Denies Hx Arthritis, Denies Hx Gout Skin Medical History: Denies Hx Eczema, Denies Hx Psoriasis Psychiatric Medical History: Denies: Hx Depression Infectious Medical History: Denies: Hx Hepatitis Past Surgical History: Reports: Other - Removal of part of a lung as a child due to abscess. - Immunizations Immunizations up to date: Yes Hx Diphtheria, Pertussis, Tetanus Vaccination: Yes Review of Systems - Review of Systems Constitutional: See HPI Genitourinary: See HPI -: Yes All other systems reviewed and negative Physical Exam - Vital signs Vitals: Temp Pulse Resp BP Pulse Ox 97.5 F 65 16 114/77 99 08/19/19 09:32 08/19/19 09:32 08/19/19 09:32 08/19/19 09:32 08/19/19 09:32 - Notes Notes: This is a cachectic appearing 53-year-old male who appears much older than his stated age, in no acute distress. Vital signs reviewed, please refer to chart. Head is normocephalic, atraumatic. Pupils equal round, reactive to light. Neck is supple without meningismus. Heart is regular rate and rhythm. Lungs reveal occasional inspiratory and expiratory wheezes scattered throughout all hanson. Abdomen is soft, nontender, normoactive bowel sounds throughout. Extremities without cyanosis, legs show significant cachexia. Posterior calves are nontender. Peripheral pulses are equal. Skin is warm and dry. Patient is awake, alert, neurological exam is nonfocal. Course - Re-evaluation Re-evalutation: 08/19/19 10:33 Patient presents to the emergency department for evaluation. Here is here for high blood glucose. It seems that he is a poor understanding of his disease process, does not check his blood glucose regularly. His ntesc-iq-ynsy glucose was over 500 here. Laboratory investigations are ordered. I did order a 500 cc normal saline bolus, as I am unsure as to the details in regards to his CHF history. I will look for a recent echocardiogram. Awaiting metabolic panel. Patient is currently stable, we will continue to monitor. 08/19/19 11:51 Patient's blood glucose is coming down, still awaiting an improved reading. 08/19/19 12:23 Laboratory investigations otherwise show a mild elevation in his LFTs, this is a significant improvement, however, since last measurement. Patient is rather belligerent. I do suspect he is not taking his medications as prescribed. He is given a small amount of fluids. Will recheck glucose 1 further time. I will verify with the patient that he is actually taking lispro and short acting insulin as prescribed. [facility], perhaps he could get referral on to endocrinology. 08/19/19 13:13 Patient's blood glucose came down somewhat more. The patient became more belligerent stated that he needed something to eat immediately. I explained to the patient that he was going to be stable for discharge. On questioning, the patient has not been taking any of the lispro insulin as it was prescribed. I did verify [facility], but the patient states it had not been. I did resend this prescription, verified the sliding scale. I will send him home with further instructions on diabetic diet choices and close follow-up with [facility], which he has elected to use this is new primary care provider. He is to return to the ED with worsening or new concerning symptoms of any sort. - Vital Signs Vital signs: Temp Pulse Resp BP Pulse Ox 97.5 F 65 16 114/77 99 08/19/19 09:38 08/19/19 09:32 08/19/19 09:32 08/19/19 09:32 08/19/19 09:32 - Laboratory Result Diagrams: 08/19/19 09:57 08/19/19 09:57 Laboratory results interpreted by me: 08/19/19 08/19/19 08/19/19 09:37 09:57 09:57 RBC 3.34 L Hgb 11.4 L Hct 33.1 L MCV 99 H MCH 34.2 H RDW 16.0 H Baso % (Auto) 2.2 H Sodium 128.6 L Potassium 5.4 H Chloride 93 L BUN 34 H Glucose 610 H* POC Glucose > 550 H* AST 321 H ALT 289 H Alkaline Phosphatase 313 H Urine Glucose (UA) 08/19/19 08/19/19 08/19/19 10:35 11:49 13:00 RBC Hgb Hct MCV MCH RDW Baso % (Auto) Sodium Potassium Chloride BUN Glucose POC Glucose 440 H* 406 H* AST ALT Alkaline Phosphatase Urine Glucose (UA) >=500 H Discharge - Discharge Clinical Impression: Hyperglycemia due to type 1 diabetes mellitus Condition: Stable Disposition: HOME, SELF-CARE Instructions: Hyperglycemia ([facility]) Additional Instructions: You need to start taking the lispro insulin as directed. Use it according to sliding scale, as directed by the pharmacy. You should be checking your blood glucose at least twice daily in order to use this medication appropriately. Follow-up with [facility] next week. You should discuss possible referral on to endocrinology. Return to the emergency department with worsening or new c oncerning symptoms of any sort. Prescriptions: Insulin Lispro [Humalog Kwikpen U-100] 1 - 12 unit SQ ACHS PRN #1 [email or web address] PRN Reason: Referrals: [facility] [NO LOCAL MD] - Follow up as needed
[2019-08-19 10:38] LABS: GLUCOSE 610 mg/dL (75-110)
[2019-08-19] MEDS ORDERED: INSULIN REG, HUMAN 100 UNIT/ML 3 ML VIAL (PYX) IV ONE (10:41)
[2019-08-19 10:55] LABS: APPEARANCE,URINE CLEAR; BILIRUBIN,URINE NEGATIVE (NEGATIVE); COLOR,URINE STRAW; GLUCOSE, URINE >=500 mg/dL (NEGATIVE); KETONES,URINE NEGATIVE (NEGATIVE); LEUKOCYTE ESTERASE,URINE NEGATIVE (NEGATIVE); NITRITE,URINE NEGATIVE (NEGATIVE); PROTEIN,URINE NEGATIVE (NEGATIVE); URINE SPECIFIC GRAVITY 1.025; UROBILINOGEN,URINE NEGATIVE mg/dL (<2.0)
[2019-08-19 13:26] VITALS: BP 119/75
== END 2019-08-19 13:29 | disposition home or self-care (01) ==
LOC: ER 09:25
DX: E10.65 Type 1 diabetes mellitus with hyperglycemia (principal); Z79.4 Long term (current) use of insulin; Z91.14 Patient's other noncompliance with medication regimen; I11.0 Hypertensive heart disease with heart failure; I50.30 Unspecified diastolic (congestive) heart failure; Z79.899 Other long term (current) drug therapy; R06.2 Wheezing; R79.89 Other specified abnormal findings of blood chemistry
CPT/HCPCS: 99284; 96360; 36415; 82962; 85025; 80053; 81001; J1815; J7040

== ENCOUNTER 2019-09-13 11:42 | Inpatient (IN) | payer MEDICAID ==
[2019-09-13 12:07] LABS: PROTHROMBIN TIME 14.4 SEC (11.4-15.4)
--- NOTE | 2019-09-13 12:07 | ER Document Report ---
ED General - General Chief Complaint: Unresponsive Stated Complaint: UNRESPONSIVE Time Seen by Provider: 09/13/19 11:47 TRAVEL OUTSIDE OF THE [place] IN LAST 30 DAYS: No - HPI Notes: Chief complaint: Altered mental status History of present illness: 53-year-old male poorly compliant type I diabetic with multiple prior admissions for DKA and history of polysubstance abuse was found by his sister unresponsive in a bathtub at home with 2 small respirations. She had last encountered him 2 days ago and says he was "fine" at that time. EMS was summoned and found Accu-Chek reading "high". Patient was unresponsive and showed no response to administration of IV Narcan. He was not adequately protecting his airway and was exhibiting Kussmaul respirations and was therefore intubated in the field with a 7.5 ET tube and transported here. They noted i nitial blood pressure of 80/60. They administered 1500 cc normal saline during transport and they also started Levophed on the patient. When he arrived here he was very hypertensive and the Levophed was discontinued upon arrival of EMS. Patient remains unresponsive and no history is obtainable from the patient. I reviewed extensive inpatient records from this facility. We note that he was last admitted to the inpatient service here in mid July of this year. He was in diabetic ketoacidosis at that time. - Related Data Allergies/Adverse Reactions: No Known Allergies Allergy (Verified 06/08/17 20:19) Past Medical History - General Information source: [facility] Records Cannot obtain history due to: Intubated - Social History Smoking Status: Smoker,Current Status Unk Family History: DM, Hypertension. denies: CAD, Malignancy - Past Medical History Cardiac Medical History: Reports: Hx Congestive Heart Failure - Diastolic, Hx Hypertension Pulmonary Medical History: Denies: Hx Asthma, Hx COPD Neurological Medical History: Denies: Hx Seizures Endocrine Medical History: Reports: Hx Diabetes Mellitus Type 1. Denies: Hx Diabetes Mellitus Type 2, Hx Hyperthyroidism, Hx Hypothyroidism Renal/ Medical History: Reports: Hx Renal Insufficiency GI Medical History: Denies: Hx Cirrhosis, Hx Hepatitis Musculoskeletal Medical History: Denies Hx Arthritis, Denies Hx Gout Skin Medical History: Denies Hx Eczema, Denies Hx Psoriasis Psychiatric Medical History: Denies: Hx Depression Infectious Medical History: Denies: Hx Hepatitis Past Surgical History: Reports: Other - Removal of part of a lung as a child due to abscess. - Immunizations Immunizations up to date: Yes Hx Diphtheria, Pertussis, Tetanus Vaccination: Yes Review of Systems - Review of Systems -: Yes ROS unobtainable due to patient's medical condition Physical Exam - Vital signs Vitals: BP 174/94 H 09/13/19 11:46 - Notes Notes: GENERAL: Emaciated, unresponsive intubated male of approximately reported age. SKIN: Cool and pale. Multiple excoriations of all the extremities. Good turgor no rashes. HEAD: Bitemporal wasting. EYES: Pupils are mid position equal and sluggish. Gaze is conjugate.. EARS: CANALS AND TMS CLEAR. NOSE: CLEAR. MOUTH: ET tube present in the mouth. This is a 7.5 ET tube secured at 24 at the lip. Dry oral mucosa. Poor dentition. NECK: Supple. No masses or thyromegaly. No adenopathy. Carotids 2+ without bruits. No JVD. CHEST: Respirations assisted with bagging and breath sounds clear and symmetrical. HEART: Regular rhythm. No murmur gallop or rub. ABDOMEN: Soft nontender without masses, organomegaly or rebound. Bowel sounds normally active. No bruits. GENITALIA: Normal male. EXTREMITIES: No edema. No calf tenderness. Cap refill less than 1.5 seconds. Dorsalis pedis and posterior tibial pulses 3+ and symmetrical. NEUROLOGICAL: GCS 3T. Course - Re-evaluation Re-evalutation: 09/13/19 18:16 Stability of patient's airway post intubation was documented. Patient remained unresponsive with a [place] of 3T. As suspected his blood glucose was around 100 0. pH very low 6.8 with severe metabolic acidosis bicarb less than 5 consistent with diabetic ketoacidosis. Patient was treated with large volumes of IV fluid and was started on IV insulin drip. His initial bicarb was 5.5. He was noted also to have acute kidney injury with creatinine approximately 3.6. He had peaking of the T waves on his EKG and a sinus tachycardia. His chest x-ray was reviewed by me demonstrating appropriate placement of the ET tube with hyperinflation and no focal infiltrates. There is no pneumothorax and no pleural effusion. Case was discussed with Dr. Jiang the on-call public health social worker and he will assume care and admit patient to ICU. - Vital Signs Vital signs: Temp Pulse Resp BP Pulse Ox 73 25 H 139/87 H 100 09/13/19 14:05 09/13/19 16:46 09/13/19 16:46 09/13/19 16:46 - Laboratory Result Diagrams: 09/13/19 11:27 09/13/19 17:00 Laboratory results interpreted by me: 09/13/19 09/13/19 09/13/19 11:27 11:27 11:27 WBC 19.6 H RBC 3.60 L Hgb 11.5 L MCV 113 H D MCHC 28.3 L RDW 15.9 H Seg Neuts % (Manual) 85 H Band Neutrophils % 1 L Lymphocytes % (Manual) 4 L Abs Neuts (Manual) 16.9 H Abs Monocytes (Manual) 2.0 H Carbonic Acid ABG pH ABG pCO2 ABG pO2 ABG HCO3 ABG Total CO2 ABG O2 Saturation Potassium 5.9 H Carbon Dioxide < 5 L* BUN 52 H Creatinine 3.49 H Est GFR ( Amer) 22 L Est GFR (MDRD) Non-Af 18 L Glucose 990 H* Lactic Acid 2.6 H Magnesium 2.7 H Alkaline Phosphatase 147 H Urine Protein Urine Glucose (UA) Urine Ketones Urine Blood Salicylates < 1.0 L Acetaminophen < 10 L 09/13/19 09/13/19 11:27 12:02 WBC RBC Hgb MCV MCHC RDW Seg Neuts % (Manual) Band Neutrophils % Lymphocytes % (Manual) Abs Neuts (Manual) Abs Monocytes (Manual) Carbonic Acid 0.77 L ABG pH 6.78 L* ABG pCO2 25.5 L ABG pO2 366.3 H ABG HCO3 3.7 L ABG Total CO2 4.5 L ABG O2 Saturation 99.4 H Potassium Carbon Dioxide BUN Creatinine Est GFR ( Amer) Est GFR (MDRD) Non-Af Glucose Lactic Acid Magnesium Alkaline Phosphatase Urine Protein 100 H Urine Glucose (UA) >=500 H Urine Ketones 80 H Urine Blood LARGE H Salicylates Acetaminophen - Diagnostic Test Radiology reviewed: Reports reviewed - Satisfactory ET placement. No infiltrate. - EKG Interpretation by Me Additional EKG results interpreted by me: 09/13/19 18:19 Twelve-lead EKG from 01/11 reviewed contemporaneously by me demonstrating sinus tachycardia with a rate of 104. QRS axis is -15 degrees. Changes of left ventricular hypertrophy are present. There is borderline prolongation of the QT interval at 490 ms. Prominent peaking of the T waves is noted. Aside from pea johnny of the T waves the tracing is similar to prior study of 06/15/2019. Indication for current study: Diabetic ketoacidosis. Critical Care Note - Critical Care Note Total time excluding time spent on procedures (mins): 65 - DKA with coma and endotracheal intubation with mechanical ventilation Discharge - Discharge Clinical Impression: DKA with coma, Acute kidney injury Condition: Critical Disposition: ADMITTED INPATIENT Admitting Provider: Deidre (Program Paraprofessional) Unit Admitted: ICU
[2019-09-13 12:08] LABS: ARTERIAL BLOOD BASE EXCESS -30.7 mmol/L; ARTERIAL BLOOD FIO2 90%; ARTERIAL BLOOD H2CO3 0.77 mmol/L (1.05-1.35); ARTERIAL BLOOD HCO3 3.7 mmol/L (20-24); ARTERIAL BLOOD O2 SATURATION 99.4 % (94-98); ARTERIAL BLOOD PCO2 25.5 mmHg (35-45); ARTERIAL BLOOD PO2 366.3 mmHg (80-100); ARTERIAL BLOOD TOTAL CO2 4.5 mmol/L (23-27); PARTIAL THROMBOPLASTIN TIME 26.7 SEC (23.5-35.8)
[2019-09-13 12:10] LABS: ARTERIAL BLOOD PH 6.78 (7.35-7.45)
[2019-09-13] MEDS ORDERED: SODIUM BICARBONATE 8.4% INJ 50 MEQ/50 ML DISP.SYRIN IV ONE (12:12)
[2019-09-13 12:23] LABS: ALBUMIN 4.1 g/dL (3.5-5.0); ALKALINE PHOSPHATASE 147 U/L (38-126); ASPARTATE AMINO TRANSFERASE 33 U/L (17-59); BILIRUBIN,DIRECT 0.1 mg/dL (0.0-0.4); BILIRUBIN,TOTAL 0.3 mg/dL (0.2-1.3); BLOOD UREA NITROGEN 52 mg/dL (7-20); CALCIUM 8.7 mg/dL (8.4-10.2); CHLORIDE 100 mmol/L (98-107); CREATINE KINASE 77 U/L (55-170); POTASSIUM 5.9 mmol/L (3.6-5.0); TOTAL PROTEIN 6.9 g/dL (6.3-8.2)
[2019-09-13] MEDS ORDERED: PROPOFOL 1,000 MG/100 ML INFUS..BTL IV PRN ×2 (12:26→13:23)
[2019-09-13] MEDS: NORMAL SALINE 1000 ML 1,000 ML IV PRN ×4 (12:30→23:16)
--- NOTE | 2019-09-13 12:31 | RADIOLOGY REPORT (SQ) ---
EXAM DESCRIPTION: CHEST SINGLE VIEW IMAGES COMPLETED DATE/TIME: 09/13/2019 12:14 pm REASON FOR STUDY: AMS COMPARISON: None. EXAM PARAMETERS: NUMBER OF VIEWS: One view. TECHNIQUE: Single frontal radiographic view of the chest acquired. RADIATION DOSE: NA LIMITATIONS: None. FINDINGS: LUNGS AND PLEURA: Lungs are hyperexpanded. There is no infiltrate, effusion, or mass. MEDIASTINUM AND HILAR STRUCTURES: No masses. Contour normal. HEART AND VASCULAR STRUCTURES: Heart normal in size. Normal vasculature. BONES: No acute findings. HARDWARE: Endotracheal tube has its tip 3.5 cm above the mike. OTHER: No other significant finding. IMPRESSION: Chronic lung changes. Endotracheal tube is in position as described. TECHNICAL DOCUMENTATION: JOB ID: [id number] 2010 [employer]- All Rights Reserved Reading location - IP/workstation name: [email or web address]
[2019-09-13 12:32] LABS: ACETAMINOPHEN < 10 ug/mL (10-30); ALCOHOL < 10 mg/dL (NONE DETECTED); SALICYLATE < 1.0 mg/dL (2.0-20.0)
[2019-09-13 12:33] LABS: AMORPHOUS SEDIMENT,URINE TRACE /HPF; APPEARANCE,URINE SLIGHTLY-CLOUDY; BILIRUBIN,URINE NEGATIVE (NEGATIVE); COLOR,URINE YELLOW; GLUCOSE, URINE >=500 mg/dL (NEGATIVE); KETONES,URINE 80 mg/dL (NEGATIVE); PROTEIN,URINE 100 mg/dL (NEGATIVE); URINE SPECIFIC GRAVITY 1.016; UROBILINOGEN,URINE NEGATIVE mg/dL (<2.0)
[2019-09-13] MEDS ORDERED: NORMAL SALINE 100 ML with INSULIN REGULAR, HUMAN 100 UNIT IV PRN ×4 (12:36→13:36)
--- NOTE | 2019-09-13 12:39 | RADIOLOGY REPORT (SQ) ---
EXAM DESCRIPTION: CT HEAD WITHOUT IMAGES COMPLETED DATE/TIME: 09/13/2019 12:26 pm REASON FOR STUDY: AMS COMPARISON: 12/11/2018 TECHNIQUE: Axial images acquired through the brain without intravenous contrast. Images reviewed wi th bone, brain and subdural windows. Additional sagittal and coronal reconstructions were generated. Images stored on PACS. All CT scanners at this facility use dose modulation, iterative reconstruction, and/or weight based d osing when appropriate to reduce radiation dose to as low as reasonably achievable (ALARA). [facility]: Dose Right [facility]: CareDose [facility]: Dose Right [facility]: Teradose 4D [facility]: Smart [employer] RADIATION DOSE: CT Rad equipment meets quality standard of care and radiation dose reduction techniq ues were employed. CTDIvol: 53.2 mGy. DLP: 1017 mGy-cm. mGy. LIMITATIONS: None. FINDINGS: VENTRICLES: Normal size and contour. CEREBRUM: No masses. No hemorrhage. No midline shift. There is encephalomalacia in the left occipi ulysses lobe. There is no interval change in the appearance. No evidence for acute infarction. Normal g ray/white matter differentiation. No areas of low density in the white matter. CEREBELLUM: No masses. No hemorrhage. No alteration of density. No evidence for acute infarction. EXTRAAXIAL SPACES: No fluid collections. No masses. ORBITS AND GLOBE: No intra- or extraconal masses. Normal contour of globe without masses. CALVARIUM: No fracture. PARANASAL SINUSES: No fluid or mucosal thickening. SOFT TISSUES: No mass or hematoma. OTHER: No other significant finding. 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 No acute intracranial imaging findings. EVIDENCE OF ACUTE STROKE: NO. COMMENT: Quality ID # [id number]: Final reports with documentation of one or more dose reduction techniques (e.g., Automated exposure control, adjustment of the mA and/or kV according to patient size, use of iterative reconstruction technique) TECHNICAL DOCUMENTATION: JOB ID: [id number] 2010 [employer]- All Rights Reserved Reading location - IP/workstation name: [email or web address]
[2019-09-13 12:42] LABS: CARBON DIOXIDE < 5 mmol/L (22-30); GLUCOSE 990 mg/dL (75-110)
[2019-09-13 12:42] LABS: URINE AMPHETAMINES SCREEN NEGATIVE; URINE BARBITURATES SCREEN NEGATIVE; URINE BENZODIAZEPINES SCREEN NEGATIVE; URINE MARIJUANA (THC) SCREEN NEGATIVE; URINE METHADONE SCREEN NEGATIVE; URINE PHENCYCLIDINE SCREEN NEGATIVE
[2019-09-13 12:43] LABS: TROPONIN I < 0.012 ng/mL
[2019-09-13 12:43] LABS: URINE COCAINE SCREEN UNCONFIRMED POSITIVE
--- NOTE | 2019-09-13 12:44 | RADIOLOGY REPORT (SQ) ---
EXAM DESCRIPTION: CT CERVICAL SPINE WITHOUT IMAGES COMPLETED DATE/TIME: 09/13/2019 12:26 pm REASON FOR STUDY: fall, ams, unresponsive COMPARISON: None. TECHNIQUE: Axial images acquired through the cervical spine without intravenous contrast. Images re viewed with lung, soft tissue and bone windows. Reconstructed coronal and sagittal MPR images review ed. Images stored on PACS. All CT scanners at this facility use dose modulation, iterative reconstruction, and/or weight based d osing when appropriate to reduce radiation dose to as low as reasonably achievable (ALARA). [facility]: Dose Right [facility]: CareDose [facility]: Dose Right [facility]: Teradose 4D [facility]: Smart [employer] RADIATION DOSE: CT Rad equipment meets quality standard of care and radiation dose reduction techniq ues were employed. CTDIvol: 11.7 mGy. DLP: 229 mGy-cm. mGy. LIMITATIONS: None. FINDINGS: ALIGNMENT: Anatomic. MINERALIZATION: Normal. VERTEBRAL BODIES: No fractures or dislocation. DISCS: There is mild disc narrowing at C3-4 and greater narrowing at C5-6 and C6-7 with small margina l osteophytes. FACETS, LATERAL MASSES, POSTERIOR ELEMENTS: Is mild hypertrophic facet change in the upper cervical s jimbo on the left. HARDWARE: None in the spine. VISUALIZED RIBS: No fractures. LUNG APICES AND SOFT TISSUES: No significant or acute findings. OTHER: No other significant finding. IMPRESSION: Degenerative disc disease. Spondylosis. Mild facet arthropathy. No acute finding. TECHNICAL DOCUMENTATION: JOB ID: [id number] Quality ID # [id number]: Final reports with documentation of one or more dose reduction techniques (e.g., Au tomated exposure control, adjustment of the mA and/or kV according to patient size, use of iterative reconstruction technique) 2010 [employer]- All Rights Reserved Reading location - IP/workstation name: [email or web address]
[2019-09-13] MEDS ORDERED: INSULIN REG, HUMAN 100 UNIT/ML 3 ML VIAL (PYX) ONE ×2 (13:04→22:15)
[2019-09-13 13:17] LABS: HEMATOCRIT 40.7 % (37.9-51.0); HEMOGLOBIN 11.5 g/dL (13.5-17.0); MEAN CORPUSCULAR HGB CONC 28.3 g/dL (32.0-36.0); PLATELET COUNT 245 10^3/uL (150-450); RED CELL DISTRIBUTION WIDTH 15.9 % (11.5-14.0); WHITE BLOOD COUNT 19.6 10^3/uL (4.0-10.5)
[2019-09-13 13:21] LABS: MEAN CORPUSCULAR VOLUME 113 fl (80-97)
[2019-09-13] MEDS ORDERED: ONDANSETRON HCL INJ/PF 4 MG/2 ML SDV IV PRN (13:23)
[2019-09-13] MEDS ORDERED: IPRATROPIUM/ALBUTEROL 0.5-2.5 MG/3 ML AMPUL NEB PRN (13:23)
[2019-09-13] MEDS ORDERED: ACETAMINOPHEN 325 MG TABLET NG PRN (13:23)
--- NOTE | 2019-09-13 13:23 | CRITICAL CARE ADMISSION REPORT ---
HPI Date:: 09/13/19 Time:: 13:00 Reason for ICU Reason:: Intubated, unresposive in severe DKA. Admission Date/Time & PCP: Admission Date/Time: Primary Care Provider: HPI: This patient is a 53 yo man intubated for unresponsivenes due to DKA. He is a halfway diabetic who has been here multiple times for the same. He was found on the floor by his sister and intubated due to unresponsiveness. Last seen well 2 days ago. He is slightly hypothermic at 95, had rocuronium and etomidate for intubated which me be part of his unresponsiveness. He is geting his 2nd liter of saline, 1.5 in the field. In previous notes he is non-compliant has tested positive for cocaine and THC, cocaine today. He is positive for Hep C. He will need the ICU for intubation and insulin drip. History obtained from:: [facility] and old records - Diagnosis/Plan (1) DKA, type 1 Qualifiers: Diabetes mellitus complication detail: with coma Qualified Code(s): E10.11 - Type 1 diabetes mellitus with ketoacidosis with coma Is this a current diagnosis for this admission?: Yes Plan: He will need IVF, insulin drip for his DKA. His K of 5.9 should come down quickly with resolution of DKA. (2) Noncompliance Is this a current diagnosis for this admission?: Yes Plan: This is likely the reason for his frequent visits. Eventually this may prove to be fatal (3) Acute kidney failure Qualifiers: Acute renal failure type: with acute tubular necrosis Qualified Code(s): N17.0 - Acute kidney failure with tubular necrosis Is this a current diagnosis for this admission?: Yes Plan: Probable from profound dehydration. Continue to rehydrate and recheck labs. (4) Acute respiratory failure Qualifiers: Respiratory failure complication: unspecified whether with hypoxia or hypercapnia Qualified Code(s): J96.00 - Acute respiratory failure, unspecified whether with hypoxia or hypercapnia Is this a current diagnosis for this admission?: Yes Plan: It is not known if he was hypoxic or hypercarbic. He now requires intubation for airway protection. (5) Dehydration Is this a current diagnosis for this admission?: Yes Plan: IVF (6) Hepatitis C Qualifiers: Viral hepatitis chronicity: chronic Is this a current diagnosis for this admission?: Yes Plan: From old records. (7) Hyperkalemia Is this a current diagnosis for this admission?: Yes Plan: This should come down with resolving of his acidosis and drop of BG. He may need replacement. (8) Hypothermia Qualifiers: Encounter type: initial encounter Qualified Code(s): T68.XXXA - Hypothermia, initial encounter Is this a current diagnosis for this admission?: Yes Plan: With a temp of 95 he should warm up quickly. He may get a small rise of K with rewarming. This may be prolonging metabolism of etomidate and rocuronium. (9) Malnutrition Qualifiers: Malnutrition type: protein-calorie malnutrition Protein-calorie malnutrition severity: moderate Qualified Code(s): E44.0 - Moderate protein- calorie malnutrition Is this a current diagnosis for this admission?: Yes Plan: From old records. His appearance confirms this as well. (10) Cocaine abuse Is this a current diagnosis for this admission?: Yes Plan: His UDS is positive as it has been in past visits. Plan Summary: He will need the ICU to awaken and get extubated. His DKA should be partially resolved by then Past Medical History Cardiac Medical History: Reports: Congestive Heart Failure - Diastolic, Hypertension Pulmonary Medical History: Denies: Asthma, Chronic Obstructive Pulmonary Disease (COPD) Neurological Medical History: Denies: Seizures Endocrine Medical History: Reports: Diabetes Mellitus Type 1 Denies: Diabetes Mellitus Type 2, Hyperthyroidism, Hypothyroidism GI Medical History: Denies: Cirrhosis, Hepatitis Musculoskeltal Medical History: Denies: Arthritis, Gout Skin Medical History: Denies: Eczema, Psoriasis Psychiatric Medical History: Denies: Depression Hematology: Denies: Anemia, Bleeding Tendencies Past Surgical History Past Surgical History: Reports: Other - Removal of part of a lung as a child due to abscess. Social/Family History - Social History Smoking Status: Smoker,Current Status Unk Frequency of Alcohol Use: Heavy - Denies current use of alcohol but has a history of heavy alcohol usage/abuse Hx Recreational Drug Use: Yes Drugs: Cocaine Hx Prescription Drug Abuse: Yes - Medication/Allergies Home Medications: Gabapentin 300 mg PO QID 06/15/19 Losartan Potassium [Cozaar 100 mg Tablet] 50 mg PO DAILY 06/15/19 Acetaminophen [Tylenol 325 mg Tablet] 650 mg PO Q4HP PRN tablet 08/09/19 Carvedilol [Coreg 6.25 mg Tablet] 6.25 mg PO Q12 #60 tablet 08/09/19 Famotidine [Pepcid 20 mg Tablet] 20 mg PO Q12 #60 tablet 08/09/19 Insulin Glargine,Hum.rec.anlog [Lantus Insulin 100 Unit/mL Insulin Pen] 18 unit SUBCUT QHS #1 pen 08/09/19 Nicotine [Nicoderm 21 mg/24 Hr Transderm Patch] 1 each TD DAILYP PRN #30 patch.td24 08/09/19 Pen Needle, Diabetic [Pen Needle] 120 each MC ASDIR PRN #120 dis.needle 08/09/19 Insulin Lispro [Humalog Kwikpen U-100] 1 - 12 unit SQ ACHS PRN #1 insuln.pen 08/19/19 Allergies/Adverse Reactions: No Known Allergies Allergy (Verified 06/08/17 20:19) Review of Systems ROS unobtainable: Due to endotracheal tube, Due to mental status Physical Exam Vital Signs: Temp Pulse Resp BP Pulse Ox 19 135/87 H 100 09/13/19 12:00 09/13/19 12:00 09/13/19 12:00 Intake & Output 09/12/19 09/13/19 09/14/19 06:59 06:59 06:59 Weight 51.6 kg Weight/Height Weight 51.6 kg Height 5 ft 7 in General appearance: PRESENT: thin Head exam: PRESENT: atraumatic, normocephalic Eye exam: PRESENT: conjunctiva pink, EOMI, PERRLA. ABSENT: scleral icterus Ear exam: PRESENT: normal external ear exam Mouth exam: PRESENT: moist, tongue midline Respiratory exam: PRESENT: clear to auscultation baldemar. ABSENT: rales, rhonchi, wheezes Cardiovascular exam: PRESENT: RRR, tachycardia. ABSENT: diastolic murmur, rubs, systolic murmur GI/Abdominal exam: PRESENT: normal bowel sounds, soft. ABSENT: distended, guarding, mass, organolmegaly, rebound, tenderness Rectal exam: PRESENT: deferred Gentrourinary exam: PRESENT: indwelling catheter Extremities exam: PRESENT: full ROM, other - Thin with evidence of muscle wa sting. ABSENT: calf tenderness, clubbing, pedal edema Neurological exam: PRESENT: altered Skin exam: PRESENT: dry, intact, warm. ABSENT: cyanosis, rash Tubes/Lines: PRESENT: Endotracheal Tube, Nasogastic Tube Laboratory/Radiographs Laboratory Results: 09/13/19 11:27 09/13/19 09/13/19 09/13/19 11:27 11:27 11:27 Carbonic Acid 0.77 L HCO3/H2CO3 Ratio 4:1 ABG pH 6.78 L* ABG pCO2 25.5 L ABG pO2 366.3 H ABG HCO3 3.7 L ABG O2 Saturation 99.4 H ABG Base Excess -30.7 FiO2 90% Sodium 140.2 Potassium 5.9 H Chloride 100 Carbon Dioxide < 5 L* Anion Gap Not Reportable BUN 52 H Creatinine 3.49 H Est GFR ( Amer) 22 L Glucose 990 H* Lactic Acid 2.6 H Calcium 8.7 Magnesium 2.7 H Total Bilirubin 0.3 AST 33 Alkaline Phosphatase 147 H Total Protein 6.9 Albumin 4.1 Urine Color Urine Appearance Urine pH Ur Specific [place] Urine Protein Urine Glucose (UA) Urine Ketones Urine Blood Urine RBC (Auto) 09/13/19 12:02 Carbonic Acid HCO3/H2CO3 Ratio ABG pH ABG pCO2 ABG pO2 ABG HCO3 ABG O2 Saturation ABG Base Excess FiO2 Sodium Potassium Chloride Carbon Dioxide Anion Gap BUN Creatinine Est GFR ( Amer) Glucose Lactic Acid Calcium Magnesium Total Bilirubin AST Alkaline Phosphatase Total Protein Albumin Urine Color YELLOW Urine Appearance SLIGHTLY-CLOUDY Urine pH 5.0 Ur Specific [place] 1.016 Urine Protein 100 H Urine Glucose (UA) >=500 H Urine Ketones 80 H Urine Blood LARGE H Urine RBC (Auto) 11 09/13/19 09/13/19 11:27 11:27 Creatine Kinase 77 CK-MB (CK-2) 2.30 Troponin I < 0.012 Impressions: Cervical Spine CT 09/13/19 00:00 IMPRESSION: Degenerative disc disease. Spondylosis. Mild facet arthropathy. No acute finding. Chest X-Ray 09/13/19 11:48 IMPRESSION: Chronic lung changes. Endotracheal tube is in position as described. 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 No acute intracranial imaging findings. EVIDENCE OF ACUTE STROKE: NO. All labs, radiographs, diagnostic studies and EKGs were personally reviewed: Yes In addition, reports of radiographic and diagnostic studies were read: Yes Critical Time Critical Time (minutes): 40 -: The care of a critically ill patient is dynamic. This note represents a static moment in the admission process. Orders and treatments may be given simultaneously and urgently, and time is not inside account representative of the treatment process. This patient requires Critical Care secondary to life threatening organ or limb dysfunction. Without Critical Care services, the patient is at risk for increased mortality and morbidity.
[2019-09-13] MEDS ORDERED: PHARMACY COMMUNICATION ORDER MC NR (13:30)
[2019-09-13 13:31] LABS: ABSOLUTE LYMPHOCYTES# (MANUAL) 0.8 10^3/uL (0.5-4.7); ANISOCYTOSIS SLIGHT; BAND NEUTROPHILS % (MANUAL) 1 % (3-5); BASOPHILS % (MANUAL) 0 % (0-2); EOSINOPHILS % (MANUAL) 0 % (0-6); LYMPHOCYTES % (MANUAL) 4 % (13-45); MONOCYTES % (MANUAL) 10 % (3-13); PLATELET CLUMPS PRESENT; PLATELET COMMENT ADEQUATE; SEGMENTED NEUTROPHILS % (MAN) 85 % (42-78); TOTAL CELLS COUNTED 100; TOXIC GRANULATION SLIGHT; TOXIC VACUOLATION PRESENT
[2019-09-13] MEDS ORDERED: GLUCAGON,HUMAN RECOMB 1 MG INJ IM PRN (13:36)
[2019-09-13] MEDS ORDERED: DEXTROSE 50%-WATER 25 GM/50 ML DISP.SYRIN IV PRN (13:36)
[2019-09-13] MEDS ORDERED: DEXTROSE 40% GEL 15 GM TUBE PO PRN ×2 (13:36)
[2019-09-13] MEDS: PANTOPRAZOLE SODIUM 40 MG VIAL IV SCH (13:56)
[2019-09-13] MEDS: HEPARIN SOD (PORCINE) 5,000 UNIT/ML 1 ML VIAL SUBCUT SCH ×2 (14:08→22:20)
--- NOTE | 2019-09-13 15:05 | RADIOLOGY REPORT (SQ) ---
EXAM DESCRIPTION: KUB/ABDOMEN (SINGLE VIEW) IMAGES COMPLETED DATE/TIME: 09/13/2019 2:14 pm REASON FOR STUDY: Check Placement of NG Tube COMPARISON: None. NUMBER OF VIEWS: One view. TECHNIQUE: Supine radiographic image of the abdomen acquired. LIMITATIONS: Limited field of view. Suboptimal patient positioning. FINDINGS: BOWEL GAS PATTERN: Normal bowel gas pattern. No dilated loops. CALCIFICATIONS: An ill-defined calcific density projects over the right renal shadow. SOFT TISSUES: No gross mass or suggestion of organomegaly. HARDWARE: A partially imaged enteric tube terminates subdiaphragmatically. BONES: No acute fracture. No worrisome bone lesions. OTHER: No other significant finding. IMPRESSION: Partially imaged enteric tube terminates subdiaphragmatically ; the proximal port is not visualized. Consider advancing 8 to 10 cm. Ill-defined calcific density overlying the right renal shadow may represent nephrolithiasis, enteric contents, or other. TECHNICAL DOCUMENTATION: JOB ID: [id number] 2010 [employer]- All Rights Reserved Reading location - IP/workstation name: [email or web address]
[2019-09-13 15:53] LABS: ALBUMIN 3.3 g/dL (3.5-5.0); ALKALINE PHOSPHATASE 108 U/L (38-126); ASPARTATE AMINO TRANSFERASE 39 U/L (17-59); BILIRUBIN,TOTAL 0.2 mg/dL (0.2-1.3); BLOOD UREA NITROGEN 54 mg/dL (7-20); CALCIUM 7.8 mg/dL (8.4-10.2); CHLORIDE 107 mmol/L (98-107); TOTAL PROTEIN 5.8 g/dL (6.3-8.2)
[2019-09-13 16:05] LABS: GLUCOSE 814 mg/dL (75-110); POTASSIUM 4.9 mmol/L (3.6-5.0)
[2019-09-13 16:06] LABS: CARBON DIOXIDE < 5 mmol/L (22-30)
[2019-09-13 17:25] LABS: ALBUMIN 3.3 g/dL (3.5-5.0); ALKALINE PHOSPHATASE 111 U/L (38-126); ASPARTATE AMINO TRANSFERASE 38 U/L (17-59); BILIRUBIN,TOTAL 0.2 mg/dL (0.2-1.3); BLOOD UREA NITROGEN 53 mg/dL (7-20); CALCIUM 7.9 mg/dL (8.4-10.2); TOTAL PROTEIN 5.9 g/dL (6.3-8.2)
[2019-09-13 17:30] LABS: CHLORIDE 110 mmol/L (98-107)
[2019-09-13 17:38] LABS: GLUCOSE 737 mg/dL (75-110)
[2019-09-13 17:39] LABS: ANION GAP 28 (5-19); CARBON DIOXIDE 6 mmol/L (22-30)
--- NOTE | 2019-09-13 18:27 | EKG REPORT ---
SEVERITY:- ABNORMAL ECG - SINUS TACHYCARDIA PROBABLE LEFT ATRIAL ABNORMALITY LEFT VENTRICULAR HYPERTROPHY ANTERIOR INFARCT, AGE INDETERMINATE BORDERLINE PROLONGED QT INTERVAL SUSPECT HYPERKALEMIA : Confirmed by: Brendan Cummings MD 13-Sep-2019 18:27:00
[2019-09-13 18:50] LABS: BLOOD UREA NITROGEN 49 mg/dL (7-20); CALCIUM 7.2 mg/dL (8.4-10.2)
[2019-09-13 18:56] LABS: CHLORIDE 119 mmol/L (98-107)
[2019-09-13 18:59] LABS: GLUCOSE 601 mg/dL (75-110)
[2019-09-13 19:00] LABS: CARBON DIOXIDE 5 mmol/L (22-30); POTASSIUM 2.8 mmol/L (3.6-5.0)
[2019-09-13 19:01] LABS: ANION GAP 22 (5-19)
[2019-09-13] MEDS: POTASSI CL 20 MEQ/50 ML RIDER 20 MEQ/50 ML RTUPB IV SCH ×2 (20:06→22:20)
[2019-09-14 01:22] LABS: ANION GAP 6 (5-19); BLOOD UREA NITROGEN 55 mg/dL (7-20); CALCIUM 8.7 mg/dL (8.4-10.2); CHLORIDE 122 mmol/L (98-107); GLUCOSE 276 mg/dL (75-110); POTASSIUM 3.5 mmol/L (3.6-5.0)
[2019-09-14 01:33] LABS: CARBON DIOXIDE 20 mmol/L (22-30)
[2019-09-14] MEDS: DEXTROSE 5%-NORMAL SALINE 1,000 ML IV PRN ×2 (03:15→09:30)
[2019-09-14] MEDS: DEXTROSE 50%-WATER 25 GM/50 ML DISP.SYRIN IV PRN (03:15)
[2019-09-14 03:55] LABS: HEMATOCRIT 28.5 % (37.9-51.0); HEMOGLOBIN 9.7 g/dL (13.5-17.0); MEAN CORPUSCULAR HEMOGLOBIN 32.5 pg (27.0-33.4); MEAN CORPUSCULAR HGB CONC 34.2 g/dL (32.0-36.0); PLATELET COUNT 165 10^3/uL (150-450); RED BLOOD COUNT 2.99 10^6/uL (4.35-5.55); RED CELL DISTRIBUTION WIDTH 14.5 % (11.5-14.0); WHITE BLOOD COUNT 17.3 10^3/uL (4.0-10.5)
[2019-09-14 04:00] LABS: MEAN CORPUSCULAR VOLUME 95 fl (80-97)
[2019-09-14 04:16] LABS: BLOOD UREA NITROGEN 51 mg/dL (7-20); CALCIUM 8.5 mg/dL (8.4-10.2); GLUCOSE 192 mg/dL (75-110); POTASSIUM 3.6 mmol/L (3.6-5.0)
[2019-09-14 04:19] LABS: ABSOLUTE LYMPHOCYTES# (MANUAL) 0.7 10^3/uL (0.5-4.7); ABSOLUTE MONOCYTES # (MANUAL) 0.5 10^3/uL (0.1-1.4); BAND NEUTROPHILS % (MANUAL) 2 % (3-5); BASOPHILS % (MANUAL) 0 % (0-2); EOSINOPHILS % (MANUAL) 0 % (0-6); LYMPHOCYTES % (MANUAL) 4 % (13-45); MONOCYTES % (MANUAL) 3 % (3-13); SEGMENTED NEUTROPHILS % (MAN) 91 % (42-78); TOTAL CELLS COUNTED 100
[2019-09-14 04:20] LABS: ANISOCYTOSIS SLIGHT; PLATELET COMMENT ADEQUATE
[2019-09-14 04:21] LABS: CARBON DIOXIDE 24 mmol/L (22-30); CHLORIDE 124 mmol/L (98-107)
[2019-09-14] MEDS ORDERED: DEXTROSE 40% GEL 15 GM TUBE PO PRN ×2 (04:21)
[2019-09-14] MEDS ORDERED: GLUCAGON,HUMAN RECOMB 1 MG INJ IM PRN (04:21)
[2019-09-14] MEDS ORDERED: DEXTROSE 50%-WATER 25 GM/50 ML DISP.SYRIN IV PRN ×2 (04:21)
[2019-09-14 04:22] LABS: ANION GAP 3 (5-19)
[2019-09-14] MEDS: INSULIN REG, HUMAN 100 UNIT/ML 3 ML VIAL (PYX) SUBCUT SCH ×3 (05:30→17:29)
[2019-09-14] MEDS: HEPARIN SOD (PORCINE) 5,000 UNIT/ML 1 ML VIAL SUBCUT SCH ×3 (06:13→22:30)
[2019-09-14 07:54] LABS: ALBUMIN 3.5 g/dL (3.5-5.0); ALKALINE PHOSPHATASE 117 U/L (38-126); ANION GAP 5 (5-19); ASPARTATE AMINO TRANSFERASE 51 U/L (17-59); BILIRUBIN,DIRECT 0.1 mg/dL (0.0-0.4); BILIRUBIN,TOTAL 0.4 mg/dL (0.2-1.3); BLOOD UREA NITROGEN 47 mg/dL (7-20); CALCIUM 8.3 mg/dL (8.4-10.2); CARBON DIOXIDE 23 mmol/L (22-30); CHLORIDE 123 mmol/L (98-107); GLUCOSE 154 mg/dL (75-110); POTASSIUM 3.5 mmol/L (3.6-5.0); TOTAL PROTEIN 6.5 g/dL (6.3-8.2)
[2019-09-14] MEDS: PANTOPRAZOLE SODIUM 40 MG VIAL IV SCH (09:26)
--- NOTE | 2019-09-14 10:47 | PDOC CRITICAL CARE PROG REPORT ---
General Date:: 09/14/19 ICU Day:: 1 Hospital Day:: 1 Resuscitation Status: Full Code Events in the past 12 to 24 Hours:: Extubated and out of DKA. Review of systems relevant to events:: Neurological, endocrine Reason for ICU Addmission:: No longer needs the ICU - Medications: Medications reviewed and adjusted accordingly: Yes Vasopressors:: None Sedation:: None Physical Exam Vital Signs: Temp Pulse Resp BP Pulse Ox 96.6 F L 76 19 163/90 H 100 09/14/19 08:00 09/14/19 08:00 09/14/19 08:00 09/14/19 08:00 09/14/19 08:00 Intake & Output 09/13/19 09/14/19 09/15/19 06:59 06:59 06:59 Intake Total 3800 1000 Output Total 1725 175 Balance 2075 825 Weight 44.9 kg Weight/Height Weight 44.9 kg Height 5 ft 7 in General appearance: PRESENT: no acute distress, cooperative, disheveled, thin, other - Almost emaciated Head exam: PRESENT: atraumatic, normocephalic Eye exam: PRESENT: conjunctival injection Ear exam: PRESENT: normal external ear exam Mouth exam: PRESENT: dry mucosa Respiratory exam: PRESENT: clear to auscultation baldemar. ABSENT: rales, rhonchi, wheezes Cardiovascular exam: PRESENT: RRR. ABSENT: diastolic murmur, rubs, systolic murmur GI/Abdominal exam: PRESENT: normal bowel sounds, soft. ABSENT: distended, guarding, mass, organolmegaly, rebound, tenderness Rectal exam: PRESENT: deferred Extremities exam: PRESENT: full ROM. ABSENT: calf tenderness, clubbing, pedal edema Neurological exam: PRESENT: alert, altered, awake, CN II-XII grossly intact, other - Somewhat confused. Skin exam: PRESENT: dry, intact, warm. ABSENT: cyanosis, rash Laboratory/Radiographs Laboratory Results: 09/14/19 03:41 09/14/19 07:20 09/13/19 09/13/19 09/13/19 11:27 11:27 11:27 WBC 19.6 H RBC 3.60 L Hgb 11.5 L Hct 40.7 MCV 113 H D MCH 32.0 MCHC 28.3 L RDW 15.9 H Plt Count 245 Seg Neutrophils % Not Reportable Carbonic Acid HCO3/H2CO3 Ratio ABG pH ABG pCO2 ABG pO2 ABG HCO3 ABG O2 Saturation ABG Base Excess FiO2 Sodium 140.2 Potassium 5.9 H Chloride 100 Carbon Dioxide < 5 L* Anion Gap Not Reportable BUN 52 H Creatinine 3.49 H Est GFR ( Amer) 22 L Glucose 990 H* Lactic Acid 2.6 H Calcium 8.7 Magnesium 2.7 H Total Bilirubin 0.3 AST 33 Alkaline Phosphatase 147 H Total Protein 6.9 Albumin 4.1 Urine Color Urine Appearance Urine pH Ur Specific [place] Urine Protein Urine Glucose (UA) Urine Ketones Urine Blood Urine RBC (Auto) 09/13/19 09/13/19 09/13/19 11:27 12:02 15:15 WBC RBC Hgb Hct MCV MCH MCHC RDW Plt Count Seg Neutrophils % Carbonic Acid 0.77 L HCO3/H2CO3 Ratio 4:1 ABG pH 6.78 L* ABG pCO2 25.5 L ABG pO2 366.3 H ABG HCO3 3.7 L ABG O2 Saturation 99.4 H ABG Base Excess -30.7 FiO2 90% Sodium 142.3 Potassium 4.9 D Chloride 107 Carbon Dioxide < 5 L* Anion Gap Not Reportable BUN 54 H Creatinine 3.27 H Est GFR ( Amer) 24 L Glucose 814 H* Lactic Acid Calcium 7.8 L Magnesium Total Bilirubin 0.2 AST 39 Alkaline Phosphatase 108 Total Protein 5.8 L Albumin 3.3 L Urine Color YELLOW Urine Appearance SLIGHTLY-CLOUDY Urine pH 5.0 Ur Specific [place] 1.016 Urine Protein 100 H Urine Glucose (UA) >=500 H Urine Ketones 80 H Urine Blood LARGE H Urine RBC (Auto) 11 09/13/19 09/13/19 09/14/19 17:00 18:15 00:36 WBC RBC Hgb Hct MCV MCH MCHC RDW Plt Count Seg Neutrophils % Carbonic Acid HCO3/H2CO3 Ratio ABG pH ABG pCO2 ABG pO2 ABG HCO3 ABG O2 Saturation ABG Base Excess FiO2 Sodium 143.6 145.7 H 148.1 H Potassium 4.0 2.8 L* D 3.5 L Chloride 110 H 119 H 122 H Carbon Dioxide 6 L* 5 L* 20 L D Anion Gap 28 H 22 H 6 BUN 53 H 49 H 55 H Creatinine 3.21 H 2.69 H 2.28 H Est GFR ( Amer) 25 L 30 L 37 L Glucose 737 H* 601 H* 276 H Lactic Acid Calcium 7.9 L 7.2 L 8.7 Magnesium Total Bilirubin 0.2 AST 38 Alkaline Phosphatase 111 Total Protein 5.9 L Albumin 3.3 L Urine Color Urine Appearance Urine pH Ur Specific [place] Urine Protein Urine Glucose (UA) Urine Ketones Urine Blood Urine RBC (Auto) 09/14/19 09/14/19 09/14/19 03:41 03:41 07:20 WBC 17.3 H RBC 2.99 L Hgb 9.7 L Hct 28.5 L MCV 95 D MCH 32.5 MCHC 34.2 RDW 14.5 H Plt Count 165 Seg Neutrophils % Not Reportable Carbonic Acid HCO3/H2CO3 Ratio ABG pH ABG pCO2 ABG pO2 ABG HCO3 ABG O2 Saturation ABG Base Excess FiO2 Sodium 151.1 H 151.0 H Potassium 3.6 3.5 L Chloride 124 H 123 H Carbon Dioxide 24 23 Anion Gap 3 L 5 BUN 51 H 47 H Creatinine 2.06 H 1.94 H Est GFR ( Amer) 41 L 44 L Glucose 192 H 154 H Lactic Acid Calcium 8.5 8.3 L Magnesium Total Bilirubin 0.4 AST 51 Alkaline Phosphatase 117 Total Protein 6.5 Albumin 3.5 Urine Color Urine Appearance Urine pH Ur Specific [place] Urine Protein Urine Glucose (UA) Urine Ketones Urine Blood Urine RBC (Auto) 09/13/19 09/13/19 11:27 11:27 Creatine Kinase 77 CK-MB (CK-2) 2.30 Troponin I < 0.012 Impressions: Cervical Spine CT 09/13/19 00:00 IMPRESSION: Degenerative disc disease. Spondylosis. Mild facet arthropathy. No acute finding. Chest X-Ray 09/13/19 11:48 IMPRESSION: Chronic lung changes. Endotracheal tube is in position as described. 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 No acute intracranial imaging findings. EVIDENCE OF ACUTE STROKE: NO. KUB X-Ray 09/13/19 13:30 IMPRESSION: Partially imaged enteric tube terminates subdiaphragmatically ; the proximal port is not visualized. Consider advancing 8 to 10 cm. Ill-defined calcific density overlying the right renal shadow may represent nephrolithiasis, enteric contents, or other. All labs, radiographs, diagnostic studies and EKGs were personally reviewed: Yes In addition, reports of radiographic and diagnostic studies were read: Yes Assessment and Plan - Diagnosis (1) DKA, type 1 Qualifiers: Diabetes mellitus complication detail: with coma Qualified Code(s): E10.11 - Type 1 diabetes mellitus with ketoacidosis with coma Is this a current diagnosis for this admission?: Yes Plan: Resolved. Needs lantus and sliding scale. (2) Noncompliance Is this a current diagnosis for this admission?: Yes Plan: Between his drug use and DM his potential for is high. The patient says he understands but his behavior belies this. (3) Acute kidney failure Qualifiers: Acute renal failure type: with acute tubular necrosis Qualified Code(s): N17.0 - Acute kidney failure with tubular necrosis Is this a current diagnosis for this admission?: Yes Plan: Improved slightly. I do expect this to keep getting better. (4) Acute respiratory failure Qualifiers: Respiratory failure complication: unspecified whether with hypoxia or hypercapnia Qualified Code(s): J96.00 - Acute respiratory failure, unspecified whether with hypoxia or hypercapnia Is this a current diagnosis for this admission?: Yes Plan: Resolved (5) Dehydration Is this a current diagnosis for this admission?: Yes Plan: Mostly resolved. Still needs some hydration. (6) Hepatitis C Qualifiers: Viral hepatitis chronicity: chronic Is this a current diagnosis for this admission?: Yes (7) Hyperkalemia Is this a current diagnosis for this admission?: Yes Plan: Now that his DKA is resolved he is hypokalemic (8) Hypothermia Qualifiers: Encounter type: initial encounter Qualified Code(s): T68.XXXA - Hypothermia, initial encounter Is this a current diagnosis for this admission?: Yes Plan: Resolved. Temp 96 (9) Malnutrition Qualifiers: Malnutrition type: protein-calorie malnutrition Protein-calorie malnu trition severity: moderate Qualified Code(s): E44.0 - Moderate protein-calorie malnutrition Is this a current diagnosis for this admission?: Yes Plan: This is a [place] [facility] problem with his DM and drug use contributing. I expect this to continue as long as he uses cocaine and does not care for himself. (10) Cocaine abuse Is this a current diagnosis for this admission?: Yes Plan: Ongoing. Contributing to his mild confusion, this should clear. Plan Summary: Does not need the ICU. Will downgrade to IMC as he may need an insulin drip again. Critical Time Critical Time (minutes): 25 Level of Care: IMCU Anticipated discharge: Home Anticipated DC Timeframe: within 48 hours -: 1. The care of a critical patient is a dynamic process. This note is a metals sales representative synopsis but static in nature. The timeframe for treatments given in order is not necessarily the actual time these treatments may have been done. 2. This patient requires critical care secondary to ongoing requirements for therapy not offered or safe outside the critical care environment. Transfer to a lower level of care will result in altered life or limb morbidity and mortality. 3. Multidisciplinary rounds completed. 4. ABCDE bundle addressed.
[2019-09-14] MEDS ORDERED: RINGERS SOLUTION,LACTATED 1,000 ML IV PRN (10:52)
[2019-09-14] MEDS ORDERED: INSULIN GLARGINE,HUM.REC.ANLOG 1,000 UNIT/10 ML VIAL (PYX) SUBCUT ONE (11:15)
--- NOTE | 2019-09-14 20:19 | Progress Note ---
Provider Note Provider Note: Patient transferred out of ICU today Patient examined by me upon arrival to medical floor and again later in day Labs and medications reviewed Repeat BMP now and in a.m. Change FS BS to before meals and at bedtime now that patient is taking p.o. Change SSRI from regular to lispro
[2019-09-14] MEDS ORDERED: HALOPERIDOL LACTATE INJ 5 MG/1 ML VIAL ONE (20:37)
[2019-09-14] MEDS ORDERED: CHLORPROMAZINE HCL INJ 25 MG/1 ML AMPULE IV PRN (21:39)
[2019-09-14] MEDS ORDERED: CHLORPROMAZINE HCL INJ 25 MG/1 ML AMPULE ONE (22:08)
[2019-09-14] MEDS: INSULIN LISPRO 100 UNIT/ML 3 ML VIAL SUBCUT SCH (22:31)
[2019-09-14] MEDS: CARVEDILOL 6.25 MG TABLET PO SCH (22:33)
[2019-09-15] MEDS: HALOPERIDOL LACTATE INJ 5 MG/1 ML VIAL IV PRN ×2 (00:34→04:36)
[2019-09-15] MEDS: HEPARIN SOD (PORCINE) 5,000 UNIT/ML 1 ML VIAL SUBCUT SCH ×3 (05:18→22:27)
[2019-09-15 07:06] LABS: BLOOD UREA NITROGEN 28 mg/dL (7-20); CALCIUM 8.5 mg/dL (8.4-10.2); CARBON DIOXIDE 26 mmol/L (22-30); CHLORIDE 116 mmol/L (98-107)
[2019-09-15 07:12] LABS: POTASSIUM 2.8 mmol/L (3.6-5.0)
[2019-09-15 07:13] LABS: ANION GAP 3 (5-19); GLUCOSE 31 mg/dL (75-110)
[2019-09-15] MEDS: DEXTROSE 50%-WATER 25 GM/50 ML DISP.SYRIN IV PRN (07:25)
[2019-09-15 07:26] LABS: ABSOLUTE BASOPHILS # (AUTO) 0.1 10^3/uL (0.0-0.2); ABSOLUTE MONOCYTES (AUTO) 0.8 10^3/uL (0.1-1.4); ABSOLUTE NEUT (AUTO) 10.8 10^3/uL (1.7-8.2); BASOPHILS % (AUTO) 0.6 % (0-2); EOSINOPHILS % (AUTO) 0.1 % (0-6); HEMATOCRIT 27.6 % (37.9-51.0); HEMOGLOBIN 9.5 g/dL (13.5-17.0); MEAN CORPUSCULAR HEMOGLOBIN 32.5 pg (27.0-33.4); MEAN CORPUSCULAR HGB CONC 34.4 g/dL (32.0-36.0); MEAN CORPUSCULAR VOLUME 95 fl (80-97); MONOCYTES % (AUTO) 6.1 % (3-13); PLATELET COUNT 130 10^3/uL (150-450); RED BLOOD COUNT 2.92 10^6/uL (4.35-5.55); RED CELL DISTRIBUTION WIDTH 14.5 % (11.5-14.0); SEGMENTED NEUTROPHILS % (AUTO) 85.2 % (42-78); TOTAL CELLS COUNTED % (AUTO) 100 %; WHITE BLOOD COUNT 12.7 10^3/uL (4.0-10.5)
[2019-09-15] MEDS: INSULIN LISPRO 100 UNIT/ML 3 ML VIAL SUBCUT SCH ×4 (07:27→22:28)
[2019-09-15] MEDS ORDERED: INSULIN GLARGINE,HUM.REC.ANLOG 1,000 UNIT/10 ML VIAL (PYX) SUBCUT ONE ×3 (10:00→13:08)
[2019-09-15] MEDS ORDERED: POTASSIUM CHLORIDE 10 MEQ TABLET.ER PO ONE (10:00)
[2019-09-15] MEDS ORDERED: INSULIN GLARGINE,HUM.REC.ANLOG 1,000 UNIT/10 ML VIAL SUBCUT SCH (10:00)
[2019-09-15] MEDS ORDERED: (PENDING PHARMACY ID) (Paroxetine Hcl [Paxil] 10 MG) PO SCH (10:00)
[2019-09-15] MEDS: CARVEDILOL 6.25 MG TABLET PO SCH ×2 (10:53→22:23)
[2019-09-15] MEDS: PAROXETINE HCL 20 MG TABLET PO SCH (10:53)
[2019-09-15] MEDS: POTASSI CL 20 MEQ/50 ML RIDER 20 MEQ/50 ML RTUPB IV SCH ×2 (10:53→13:05)
[2019-09-15] MEDS: FAMOTIDINE 20 MG TABLET PO SCH (10:53)
--- NOTE | 2019-09-15 10:56 | PDOC PROGRESS REPORT ---
Subjective Progress Note for:: 09/15/19 Subjective:: Patient answers questions with minimal/one-word responses. He remains belligerent this a.m. Reason For Visit: DKA,NON-COMPLIANCE,COCAINE ABUSE,HEP C,DEHYDRATION Physical Exam Vital Signs: Temp Pulse Resp BP Pulse Ox 97.6 F 69 18 190/94 H 100 09/15/19 08:00 09/15/19 08:00 09/15/19 08:00 09/15/19 08:00 09/15/19 08:00 Intake & Output 09/14/19 09/15/19 09/16/19 06:59 06:59 06:59 Intake Total 3800 1500 Output Total 1725 325 200 Balance 2075 1175 -200 Weight 44.9 kg 45.1 kg General appearance: PRESENT: no acute distress, disheveled, thin. ABSENT: cooperative Head exam: PRESENT: atraumatic Mouth exam: PRESENT: moist Neck exam: ABSENT: JVD Respiratory exam: PRESENT: clear to auscultation baldemar, decreased breath sounds - Entry diminished at bases bilaterally, symmetrical, unlabored. ABSENT: accessory muscle use Cardiovascular exam: PRESENT: RRR, +S1, +S2 Pulses: PRESENT: normal radial pulses Vascular exam: PRESENT: normal capillary refill GI/Abdominal exam: PRESENT: normal bowel sounds, soft. ABSENT: distended, tenderness Rectal exam: PRESENT: deferred Extremities exam: ABSENT: calf tenderness, pedal edema Musculoskeletal exam: PRESENT: ambulatory Neurological exam: PRESENT: awake, other - Occult to assess orientation as patient refuses to answer questions. When he does answer questions his answers were sarcastic (ie when I ask him if he checks his blood sugar at home he said yes. When I asked what they typically ran he responded "10,20,1000" Psychiatric exam: PRESENT: agitated, other - Belligerent. ABSENT: appropriate affect, normal mood Skin exam: PRESENT: dry, normal color, warm Results Laboratory Results: 09/15/19 06:20 09/15/19 06:20 09/15/19 09/15/19 06:20 06:20 WBC 12.7 H RBC 2.92 L Hgb 9.5 L Hct 27.6 L MCV 95 MCH 32.5 MCHC 34.4 RDW 14.5 H Plt Count 130 L Seg Neutrophils % 85.2 H Sodium 145.4 H Potassium 2.8 L* Chloride 116 H Carbon Dioxide 26 Anion Gap 3 L BUN 28 H Creatinine 1.08 Est GFR ( Amer) > 60 Glucose 31 L* Calcium 8.5 09/13/19 09/13/19 11:27 11:27 Creatine Kinase 77 CK-MB (CK-2) 2.30 Troponin I < 0.012 Impressions: Cervical Spine CT 09/13/19 00:00 IMPRESSION: Degenerative disc disease. Spondylosis. Mild facet arthropathy. No acute finding. Chest X-Ray 09/13/19 11:48 IMPRESSION: Chronic lung changes. Endotracheal tube is in position as described. 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 No acute intracranial imaging findings. EVIDENCE OF ACUTE STROKE: NO. KUB X-Ray 09/13/19 13:30 IMPRESSION: Partially imaged enteric tube terminates subdiaphragmatically ; the proximal port is not visualized. Consider advancing 8 to 10 cm. Ill-defined calcific density overlying the right renal shadow may represent nephrolithiasis, enteric contents, or other. Assessment and Plan - Diagnosis (1) DKA (diabetic ketoacidoses) Qualifiers: Diabetes mellitus type: type 1 Diabetes mellitus complication detail: without coma Qualified Code(s): E10.10 - Type 1 diabetes mellitus with ketoacidosis without coma Is this a current diagnosis for this admission?: Yes Plan: Anion gap closed and acidosis resolved FSBS AC and at bedtime Continue subcutaneous basal insulin with SSI correction scale Will adjust basal insulin dose 2/2 hypoglycemia Continue IVF but change to 1/2 NS (2) Type 1 diabetes mellitus Is this a current diagnosis for this admission?: Yes Plan: Patient states that he takes 20 units of glargine insulin daily He was placed on glargine 15 units subcutaneous every 12 hours and had a hypoglycemic episode this a.m. Continue basal insulin, adjust based on FSBS - will decrease glargine to 10 units subcutaneous every 12 hours (3) Hypoglycemia Is this a current diagnosis for this admission?: Yes Plan: Fasting glucose this a.m. was 31 Patient was given dextrose FSBS 158 following dextrose Will adjust basal insulin as noted above (4) Cocaine abuse Is this a current diagnosis for this admission?: Yes Plan: Patient's cocaine abuse is ongoing Likely contributing to his confusion/belligerent behavior (5) Noncompliance Is this a current diagnosis for this admission?: Yes Plan: Patient's noncompliance and lifestyle choices will likely contribute to his early demise He is currently not interested in having any sort of discussion related to his disease process (6) Hypokalemia Is this a current diagnosis for this admission?: Yes Plan: Serum K+ 2.8 this a.m. Replete (orders placed for KCl 40 mEq p.o. x1 and 20 mEq IV x2) Hold basal insulin until patient has received his oral dose and at least 1 IV dose of KCl Recheck BMP at 1400 - Time Time Spent with patient: 25-34 minutes Medications reviewed and adjusted accordingly: Yes Anticipated Discharge Disposition: Home, Self Care Anticipated Discharge Timeframe: within 48 hours
[2019-09-15] MEDS: 1/2 NORMAL SALINE 1,000 ML IV PRN (16:41)
[2019-09-15 19:12] LABS: ANION GAP 6 (5-19); BLOOD UREA NITROGEN 18 mg/dL (7-20); CALCIUM 8.2 mg/dL (8.4-10.2); CARBON DIOXIDE 25 mmol/L (22-30); CHLORIDE 108 mmol/L (98-107); GLUCOSE 171 mg/dL (75-110); POTASSIUM 3.2 mmol/L (3.6-5.0)
[2019-09-15] MEDS: INSULIN GLARGINE,HUM.REC.ANLOG 1,000 UNIT/10 ML VIAL SUBCUT SCH (22:37)
[2019-09-16] MEDS: HEPARIN SOD (PORCINE) 5,000 UNIT/ML 1 ML VIAL SUBCUT SCH ×3 (05:39→21:59)
[2019-09-16 08:49] LABS: ABSOLUTE LYMPHOCYTES (AUTO) 0.6 10^3/uL (0.5-4.7); ABSOLUTE MONOCYTES (AUTO) 0.4 10^3/uL (0.1-1.4); ABSOLUTE NEUT (AUTO) 7.7 10^3/uL (1.7-8.2); BASOPHILS % (AUTO) 0.3 % (0-2); EOSINOPHILS % (AUTO) 0.5 % (0-6); HEMATOCRIT 31.3 % (37.9-51.0); HEMOGLOBIN 10.7 g/dL (13.5-17.0); LYMPHOCYTES % (AUTO) 6.7 % (13-45); MEAN CORPUSCULAR HEMOGLOBIN 32.6 pg (27.0-33.4); MEAN CORPUSCULAR HGB CONC 34.2 g/dL (32.0-36.0); MEAN CORPUSCULAR VOLUME 95 fl (80-97); MONOCYTES % (AUTO) 4.1 % (3-13); PLATELET COUNT 107 10^3/uL (150-450); RED BLOOD COUNT 3.28 10^6/uL (4.35-5.55); RED CELL DISTRIBUTION WIDTH 14.8 % (11.5-14.0); SEGMENTED NEUTROPHILS % (AUTO) 88.4 % (42-78); TOTAL CELLS COUNTED % (AUTO) 100 %; WHITE BLOOD COUNT 8.7 10^3/uL (4.0-10.5)
[2019-09-16 09:10] LABS: BLOOD UREA NITROGEN 14 mg/dL (7-20); CALCIUM 8.2 mg/dL (8.4-10.2); CARBON DIOXIDE 28 mmol/L (22-30); CHLORIDE 106 mmol/L (98-107); GLUCOSE 224 mg/dL (75-110); POTASSIUM 3.4 mmol/L (3.6-5.0)
[2019-09-16 09:11] LABS: ANION GAP 3 (5-19)
[2019-09-16] MEDS: FAMOTIDINE 20 MG TABLET PO SCH (09:14)
[2019-09-16] MEDS: CARVEDILOL 6.25 MG TABLET PO SCH ×2 (09:14→21:56)
[2019-09-16] MEDS: PAROXETINE HCL 20 MG TABLET PO SCH (09:14)
[2019-09-16] MEDS: INSULIN LISPRO 100 UNIT/ML 3 ML VIAL SUBCUT SCH ×4 (09:15→21:57)
[2019-09-16] MEDS: INSULIN GLARGINE,HUM.REC.ANLOG 1,000 UNIT/10 ML VIAL SUBCUT SCH ×2 (09:15→21:58)
[2019-09-16] MEDS: LISINOPRIL 5 MG TABLET PO SCH (10:18)
[2019-09-16] MEDS: 1/2 NORMAL SALINE 1,000 ML IV PRN ×2 (10:20→20:38)
[2019-09-16] MEDS ORDERED: POTASSIUM CHLORIDE 10 MEQ TABLET.ER PO ONE (10:30)
[2019-09-16] MEDS ORDERED: MAGNESIUM SULFATE/D5W 1 GM/100 ML RTUPB IV ONE (10:30)
--- NOTE | 2019-09-16 14:01 | PDOC PROGRESS REPORT ---
Subjective Progress Note for:: 09/16/19 Subjective:: Patient much more interactive today. States that he feels "good" Reason For Visit: DKA,NON-COMPLIANCE,COCAINE ABUSE,HEP C,DEHYDRATION Physical Exam Vital Signs: Temp Pulse Resp BP Pulse Ox 98.8 F 68 16 165/100 H 99 09/16/19 07:48 09/16/19 07:48 09/16/19 07:48 09/16/19 07:48 09/16/19 07:48 Intake & Output 09/15/19 09/16/19 09/17/19 06:59 06:59 06:59 Intake Total 1500 2584 Output Total 325 500 Balance 1175 2084 Weight 45.1 kg 45.6 kg General appearance: PRESENT: no acute distress, cooperative, disheveled, thin Head exam: PRESENT: atraumatic, normocephalic Eye exam: PRESENT: conjunctiva pink Mouth exam: PRESENT: moist, tongue midline Neck exam: ABSENT: JVD Respiratory exam: PRESENT: clear to auscultation baldemar, symmetrical, unlabored. ABSENT: accessory muscle use Cardiovascular exam: PRESENT: RRR, +S1, +S2 Vascular exam: PRESENT: normal capillary refill GI/Abdominal exam: PRESENT: normal bowel sounds, soft. ABSENT: distended, tenderness Rectal exam: PRESENT: deferred Extremities exam: ABSENT: calf tenderness, pedal edema Neurological exam: PRESENT: alert, awake, oriented to person, oriented to place, oriented to time, oriented to situation, CN II-XII grossly intact Psychiatric exam: PRESENT: normal mood. ABSENT: agitated, anxious Skin exam: PRESENT: dry, normal color, warm Results Laboratory Results: 09/16/19 08:40 09/16/19 08:40 09/15/19 09/16/19 09/16/19 18:31 08:40 08:40 WBC RBC Hgb Hct MCV MCH MCHC RDW Plt Count Seg Neutrophils % Sodium 139.0 137.3 Potassium 3.2 L 3.4 L Chloride 108 H 106 Carbon Dioxide 25 28 Anion Gap 6 3 L BUN 18 14 Creatinine 0.82 0.76 Est GFR ( Amer) > 60 > 60 Glucose 171 H 224 H Calcium 8.2 L 8.2 L Magnesium 1.8 09/16/19 08:40 WBC 8.7 RBC 3.28 L Hgb 10.7 L Hct 31.3 L MCV 95 MCH 32.6 MCHC 34.2 RDW 14.8 H Plt Count 107 L Seg Neutrophils % 88.4 H Sodium Potassium Chloride Carbon Dioxide Anion Gap BUN Creatinine Est GFR ( Amer) Glucose Calcium Magnesium 09/13/19 09/13/19 11:27 11:27 Creatine Kinase 77 CK-MB (CK-2) 2.30 Troponin I < 0.012 Impressions: Cervical Spine CT 09/13/19 00:00 IMPRESSION: Degenerative disc disease. Spondylosis. Mild facet arthropathy. No acute finding. Chest X-Ray 09/13/19 11:48 IMPRESSION: Chronic lung changes. Endotracheal tube is in position as described. 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 No acute intracranial imaging findings. EVIDENCE OF ACUTE STROKE: NO. KUB X-Ray 09/13/19 13:30 IMPRESSION: Partially imaged enteric tube terminates subdiaphragmatically ; the proximal port is not visualized. Consider advancing 8 to 10 cm. Ill-defined calcific density overlying the right renal shadow may represent nephrolithiasis, enteric contents, or other. Assessment and Plan - Diagnosis (1) DKA (diabetic ketoacidoses) Qualifiers: Diabetes mellitus type: type 1 Diabetes mellitus complication detail: without coma Qualified Code(s): E10.10 - Type 1 diabetes mellitus with ketoacidosis without coma Is this a current diagnosis for this admission?: Yes Plan: Anion gap remains closed and acidosis resolved FSBS AC and at bedtime Continue subcutaneous basal insulin with SSI correction scale Increase basal (glargine) insulin to 12 units subcutaneously every 12 hours Continue IVF (2) Type 1 diabetes mellitus Is this a current diagnosis for this admission?: Yes Plan: Patient states that he takes 20 units of glargine insulin daily No further hypoglycemic episodes Basal insulin increased as noted above (3) Hypoglycemia Is this a current diagnosis for this admission?: Yes Plan: Further episodes of hypoglycemia (4) Cocaine abuse Is this a current diagnosis for this admission?: Yes Plan: Patient's cocaine abuse is ongoing Likely contributing to his confusion/belligerent behavior (5) Noncompliance Is this a current diagnosis for this admission?: Yes Plan: Patient's noncompliance and lifestyle choices will likely contribute to his early demise He is still not interested in having any sort of discussion related to his disease process (6) Hypokalemia Is this a current diagnosis for this admission?: Yes Plan: Serum K+ improved Replete with KCl 40 mEq p.o. x1 Monitor - Time Time Spent with patient: 25-34 minutes Medications reviewed and adjusted accordingly: Yes Anticipated Discharge Disposition: Home, Self Care Anticipated Discharge Timeframe: within 48 hours
[2019-09-17] MEDS: HEPARIN SOD (PORCINE) 5,000 UNIT/ML 1 ML VIAL SUBCUT SCH ×3 (05:11→22:07)
[2019-09-17] MEDS: 1/2 NORMAL SALINE 1,000 ML IV PRN (05:18)
[2019-09-17 07:32] LABS: BLOOD UREA NITROGEN 13 mg/dL (7-20); CALCIUM 8.1 mg/dL (8.4-10.2); CARBON DIOXIDE 27 mmol/L (22-30); CHLORIDE 103 mmol/L (98-107); POTASSIUM 3.1 mmol/L (3.6-5.0)
[2019-09-17 07:34] LABS: ANION GAP 4 (5-19)
[2019-09-17 07:36] LABS: GLUCOSE 45 mg/dL (75-110)
[2019-09-17] MEDS: INSULIN LISPRO 100 UNIT/ML 3 ML VIAL SUBCUT SCH ×4 (10:21→22:07)
[2019-09-17] MEDS: FAMOTIDINE 20 MG TABLET PO SCH (10:27)
[2019-09-17] MEDS: CARVEDILOL 6.25 MG TABLET PO SCH ×2 (10:27→22:04)
[2019-09-17] MEDS: PAROXETINE HCL 20 MG TABLET PO SCH (10:28)
[2019-09-17] MEDS: INSULIN GLARGINE,HUM.REC.ANLOG 1,000 UNIT/10 ML VIAL SUBCUT SCH ×3 (10:28→23:41)
[2019-09-17] MEDS: LISINOPRIL 5 MG TABLET PO SCH (10:29)
--- NOTE | 2019-09-17 14:03 | PDOC PROGRESS REPORT ---
Subjective Progress Note for:: 09/17/19 Subjective:: Patient continues to be more interactive. When asked how he is doing he says better. No belligerent behavior exhibited or reported by nursing staff. Reason For Visit: DKA,NON-COMPLIANCE,COCAINE ABUSE,HEP C,DEHYDRATION Physical Exam Vital Signs: Temp Pulse Resp BP Pulse Ox 97.5 F 58 L 15 170/108 H 100 09/17/19 04:04 09/17/19 07:00 09/17/19 04:04 09/17/19 04:04 09/17/19 04:04 Intake & Output 09/16/19 09/17/19 09/18/19 06:59 06:59 06:59 Intake Total 2584 3866 Output Total 500 Balance 2084 3866 Weight 45.6 kg 47.3 kg General appearance: PRESENT: no acute distress, cooperative, disheveled, thin Head exam: PRESENT: atraumatic, normocephalic Eye exam: PRESENT: conjunctiva pink Mouth exam: PRESENT: moist, tongue midline Neck exam: ABSENT: JVD Respiratory exam: PRESENT: clear to auscultation baldemar, symmetrical, unlabored. ABSENT: accessory muscle use Cardiovascular exam: PRESENT: RRR, +S1, +S2 Vascular exam: PRESENT: normal capillary refill GI/Abdominal exam: PRESENT: normal bowel sounds, soft. ABSENT: distended, tenderness Rectal exam: PRESENT: deferred Extremities exam: ABSENT: calf tenderness, pedal edema Neurological exam: PRESENT: alert, awake, oriented to person, oriented to place, oriented to time, oriented to situation, CN II-XII grossly intact Psychiatric exam: PRESENT: normal mood, unusual affect. ABSENT: agitated, anxious Skin exam: PRESENT: dry, normal color, warm Results Laboratory Results: 09/16/19 08:40 09/17/19 05:43 09/17/19 05:43 Sodium 134.0 L Potassium 3.1 L Chloride 103 Carbon Dioxide 27 Anion Gap 4 L BUN 13 Creatinine 0.70 Est GFR ( Amer) > 60 Glucose 45 L Calcium 8.1 L 09/13/19 09/13/19 11:27 11:27 Creatine Kinase 77 CK-MB (CK-2) 2.30 Troponin I < 0.012 Impressions: Cervical Spine CT 09/13/19 00:00 IMPRESSION: Degenerative disc disease. Spondylosis. Mild facet arthropathy. No acute finding. Chest X-Ray 09/13/19 11:48 IMPRESSION: Chronic lung changes. Endotracheal tube is in position as described. 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 No acute intracranial imaging findings. EVIDENCE OF ACUTE STROKE: NO. KUB X-Ray 09/13/19 13:30 IMPRESSION: Partially imaged enteric tube terminates subdiaphragmatically ; the proximal port is not visualized. Consider advancing 8 to 10 cm. Ill-defined calcific density overlying the right renal shadow may represent nephrolithiasis, enteric contents, or other. Assessment and Plan - Diagnosis (1) DKA (diabetic ketoacidoses) Qualifiers: Diabetes mellitus type: type 1 Diabetes mellitus complication detail: without coma Qualified Code(s): E10.10 - Type 1 diabetes mellitus with ketoacidosis without coma Is this a current diagnosis for this admission?: Yes Plan: Anion gap remains closed and acidosis resolved Continue FSBS AC and at bedtime Continue subcutaneous basal insulin with SSI correction scale Patient had episode of hypoglycemia with his fasting glucose this a.m. Decrease basal (glargine) insulin to 11 units subcutaneously every 12 hours Sure the patient has an at bedtime snack Patient taking adequate p.o. fluids, stop IVF (2) Type 1 diabetes mellitus Is this a current diagnosis for this admission?: Yes Plan: Patient states that he takes 20 units of glargine insulin daily Patient did have hypoglycemic episode this a.m. Basal insulin decreased as noted above May need further titration, clearly patient is very insulin sensitive (3) Hypoglycemia Is this a current diagnosis for this admission?: Yes Plan: Noted above patient had hypoglycemic episode this a.m. (4) Cocaine abuse Is this a current diagnosis for this admission?: Yes Plan: Patient's cocaine abuse is ongoing Likely contributing to his confusion/belligerent behavior (5) Noncompliance Is this a current diagnosis for this admission?: Yes Plan: Patient's noncompliance and lifestyle choices will likely contribute to his early demise (6) Hypokalemia Is this a current diagnosis for this admission?: Yes Plan: Serum K+ back down this a.m., this was not reported by nursing staff Replete with KCl 40 mEq p.o. x1 and 20 mEq IV x2 Monitor - Time Time Spent with patient: 25-34 minutes Medications reviewed and adjusted accordingly: Yes Anticipated Discharge Disposition: Home, Self Care Anticipated Discharge Timeframe: within 48 hours
[2019-09-17] MEDS: POTASSI CL 20 MEQ/50 ML RIDER 20 MEQ/50 ML RTUPB IV SCH ×2 (14:46→17:33)
[2019-09-17] MEDS ORDERED: POTASSIUM CHLORIDE 10 MEQ TABLET.ER PO ONE (15:00)
[2019-09-17] MEDS ORDERED: LISINOPRIL 5 MG TABLET PO ONE (17:30)
[2019-09-17] MEDS ORDERED: HYDRALAZINE HCL INJ/PF 20 MG/1 ML SDV ONE (23:38)
[2019-09-17] MEDS: HYDRALAZINE HCL INJ/PF 20 MG/1 ML SDV IV PRN (23:45)
[2019-09-18] MEDS: HEPARIN SOD (PORCINE) 5,000 UNIT/ML 1 ML VIAL SUBCUT SCH ×3 (05:36→21:21)
[2019-09-18 07:57] LABS: BLOOD UREA NITROGEN 14 mg/dL (7-20); CARBON DIOXIDE 28 mmol/L (22-30); CHLORIDE 100 mmol/L (98-107); GLUCOSE 213 mg/dL (75-110); POTASSIUM 3.7 mmol/L (3.6-5.0)
[2019-09-18 08:22] LABS: ANION GAP 4 (5-19)
[2019-09-18] MEDS: FAMOTIDINE 20 MG TABLET PO SCH (09:07)
[2019-09-18] MEDS: CARVEDILOL 6.25 MG TABLET PO SCH ×2 (09:07→21:19)
[2019-09-18] MEDS: PAROXETINE HCL 20 MG TABLET PO SCH (09:07)
[2019-09-18] MEDS: LISINOPRIL 5 MG TABLET PO SCH (09:07)
[2019-09-18] MEDS: INSULIN LISPRO 100 UNIT/ML 3 ML VIAL SUBCUT SCH ×4 (09:07→21:20)
[2019-09-18] MEDS: INSULIN GLARGINE,HUM.REC.ANLOG 1,000 UNIT/10 ML VIAL SUBCUT SCH ×2 (09:08→21:20)
--- NOTE | 2019-09-18 17:18 | PDOC PROGRESS REPORT ---
Subjective Progress Note for:: 09/18/19 Subjective:: Patient the most interactive and cooperative he has been during this hospitalization. When asked how he is doing he states "fine". Reason For Visit: DKA,NON-COMPLIANCE,COCAINE ABUSE,HEP C,DEHYDRATION Physical Exam Vital Signs: Temp Pulse Resp BP Pulse Ox 98.3 F 69 20 153/81 H 99 09/18/19 11:47 09/18/19 14:00 09/18/19 11:47 09/18/19 11:47 09/18/19 11:47 Intake & Output 09/17/19 09/18/19 09/19/19 06:59 06:59 06:59 Intake Total 3866 2263 350 Output Total 4 100 Balance 3866 2259 250 Weight 47.3 kg 49.2 kg General appearance: PRESENT: no acute distress, cooperative, thin Head exam: PRESENT: atraumatic, normocephalic Eye exam: PRESENT: conjunctiva pink Mouth exam: PRESENT: moist, tongue midline Neck exam: ABSENT: JVD Respiratory exam: PRESENT: clear to auscultation baldemar, symmetrical, unlabored. ABSENT: accessory muscle use Cardiovascular exam: PRESENT: RRR, +S1, +S2 Vascular exam: PRESENT: normal capillary refill GI/Abdominal exam: PRESENT: normal bowel sounds, soft. ABSENT: distended, tenderness Rectal exam: PRESENT: deferred Extremities exam: ABSENT: calf tenderness Musculoskeletal exam: PRESENT: ambulatory Neurological exam: PRESENT: alert, awake, oriented to person, oriented to place, oriented to time, oriented to situation, CN II-XII grossly intact Psychiatric exam: PRESENT: normal mood, unusual affect. ABSENT: agitated, anxious Skin exam: PRESENT: dry, normal color, warm Results Laboratory Results: 09/16/19 08:40 09/18/19 06:07 09/18/19 06:07 Sodium 132.4 L Potassium 3.7 Chloride 100 Carbon Dioxide 28 Anion Gap 4 L BUN 14 Creatinine 0.71 Est GFR ( Amer) > 60 Glucose 213 H Calcium 8.0 L Magnesium 1.9 09/13/19 09/13/19 11:27 11:27 Creatine Kinase 77 CK-MB (CK-2) 2.30 Troponin I < 0.012 Impressions: Cervical Spine CT 09/13/19 00:00 IMPRESSION: Degenerative disc disease. Spondylosis. Mild facet arthropathy. No acute finding. Chest X-Ray 09/13/19 11:48 IMPRESSION: Chronic lung changes. Endotracheal tube is in position as olga cribed. 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 No acute intracranial imaging findings. EVIDENCE OF ACUTE STROKE: NO. KUB X-Ray 09/13/19 13:30 IMPRESSION: Partially imaged enteric tube terminates subdiaphragmatically ; the proximal port is not visualized. Consider advancing 8 to 10 cm. Ill-defined calcific density overlying the right renal shadow may represent nephrolithiasis, enteric contents, or other. Assessment and Plan - Diagnosis (1) DKA (diabetic ketoacidoses) Qualifiers: Diabetes mellitus type: type 1 Diabetes mellitus complication detail: without coma Qualified Code(s): E10.10 - Type 1 diabetes mellitus with ketoacidosis without coma Is this a current diagnosis for this admission?: Yes Plan: Anion gap remains closed and acidosis resolved Continue FSBS AC and at bedtime Continue subcutaneous basal insulin with SSI correction scale Patient taking adequate p.o. fluids, IVF stopped (2) Type 1 diabetes mellitus Is this a current diagnosis for this admission?: Yes Plan: Today when reviewing home insulin regiment patient gave a completely different answer than he did on prior days. He states that he takes 30 units of long- acting insulin at bedtime and 15 units of short acting insulin AC Patient had another borderline hypoglycemic episode in the evening of 09/17/2019 Today glucose is above goal Continue basal (glargine) insulin 11 units subcutaneous every 12 hours Ensure the patient has an at bedtime snack May need further titration, clearly patient is very insulin sensitive Request breastfeeding educator to meet with patient to ensure highest likelihood of achieving successful outpatient diabetes management. He will also need close follow-up with his PCP which is [facility] (3) Hypoglycemia Is this a current diagnosis for this admission?: Yes Plan: Patient has had no overt hypoglycemic episodes in the past 24 hours however has had borderline values (4) Cocaine abuse Is this a current diagnosis for this admission?: Yes Plan: Patient's cocaine abuse is ongoing (5) Noncompliance Is this a current diagnosis for this admission?: Yes Plan: Patient's noncompliance and lifestyle choices will likely contribute to his early demise (6) Hypokalemia Is this a current diagnosis for this admission?: Yes Plan: Resolved Monitor - Time Time Spent with patient: 25-34 minutes Medications reviewed and adjusted accordingly: Yes Anticipated Discharge Disposition: Home, Self Care Anticipated Discharge Timeframe: within 24 hours
[2019-09-18] MEDS: HYDRALAZINE HCL INJ/PF 20 MG/1 ML SDV IV PRN (19:50)
[2019-09-19] MEDS: HEPARIN SOD (PORCINE) 5,000 UNIT/ML 1 ML VIAL SUBCUT SCH (06:11)
[2019-09-19 07:03] LABS: HEMOGLOBIN 8.9 g/dL (13.5-17.0); MEAN CORPUSCULAR HEMOGLOBIN 32.4 pg (27.0-33.4); MEAN CORPUSCULAR HGB CONC 34.2 g/dL (32.0-36.0); MEAN CORPUSCULAR VOLUME 95 fl (80-97); PLATELET COUNT 177 10^3/uL (150-450); RED BLOOD COUNT 2.74 10^6/uL (4.35-5.55); RED CELL DISTRIBUTION WIDTH 14.5 % (11.5-14.0)
[2019-09-19 07:34] LABS: CARBON DIOXIDE 29 mmol/L (22-30); CHLORIDE 102 mmol/L (98-107)
[2019-09-19 07:39] LABS: ANION GAP 2 (5-19); BLOOD UREA NITROGEN 17 mg/dL (7-20); GLUCOSE 158 mg/dL (75-110); POTASSIUM 3.5 mmol/L (3.6-5.0)
[2019-09-19 07:42] LABS: ABSOLUTE LYMPHOCYTES# (MANUAL) 0.8 10^3/uL (0.5-4.7); ABSOLUTE MONOCYTES # (MANUAL) 1.1 10^3/uL (0.1-1.4); BASOPHILS % (MANUAL) 1 % (0-2); EOSINOPHILS % (MANUAL) 2 % (0-6); LYMPHOCYTES % (MANUAL) 13 % (13-45); MONOCYTES % (MANUAL) 19 % (3-13); SEGMENTED NEUTROPHILS % (MAN) 65 % (42-78); TOTAL CELLS COUNTED 100; TOXIC GRANULATION 1+
[2019-09-19 07:43] LABS: PLATELET COMMENT ADEQUATE; POLYCHROMASIA SLIGHT
[2019-09-19] MEDS: PAROXETINE HCL 20 MG TABLET PO SCH (09:10)
[2019-09-19] MEDS: CARVEDILOL 6.25 MG TABLET PO SCH (09:10)
[2019-09-19] MEDS: FAMOTIDINE 20 MG TABLET PO SCH (09:10)
[2019-09-19] MEDS: INSULIN LISPRO 100 UNIT/ML 3 ML VIAL SUBCUT SCH ×2 (09:10→11:45)
[2019-09-19] MEDS: LISINOPRIL 5 MG TABLET PO SCH (09:10)
[2019-09-19] MEDS: INSULIN GLARGINE,HUM.REC.ANLOG 1,000 UNIT/10 ML VIAL SUBCUT SCH (09:14)
[2019-09-19 11:16] VITALS: BP 190/94
--- NOTE | 2019-09-19 17:33 | PDOC DISCHARGE SUMMARY ---
Impression - Admit/DC Date/PCP Admission Date/Primary Care Provider: 09/13/19 14:07 ALFONSO OVALLE PA-C Discharge Date: 09/19/19 - Assessment Summary: - Diagnosis (1) DKA (diabetic ketoacidoses) Qualifiers: Diabetes mellitus type: type 1 Diabetes mellitus complication detail: without coma Qualified Code(s): E10.10 - Type 1 diabetes mellitus with ketoacidosis without coma Is this a current diagnosis for this admission?: Yes Plan: Anion gap remains closed and acidosis resolved Continue FSBS AC and at bedtime Continue subcutaneous basal insulin with SSI correction scale Patient taking adequate p.o. fluids, IVF stopped 09/19/2019-blood sugar this morning is 151. Stable. Patient is advised to be compliant with the medications and follow-up with PCP. Agreed and went home today. (2) Type 1 diabetes mellitus Is this a current diagnosis for this admission?: Yes Plan: Today when reviewing home insulin regiment patient gave a completely different answer than he did on prior days. He states that he takes 30 units of long- acting insulin at bedtime and 15 units of short acting insulin AC Patient had another borderline hypoglycemic episode in the evening of 09/17/2019 Today glucose is above goal Continue basal (glargine) insulin 11 units subcutaneous every 12 hours Ensure the patient has an at bedtime snack May need further titration, clearly patient is very insulin sensitive Request senior qa tester to meet with patient to ensure highest likelihood of achieving successful outpatient diabetes management. He will also need close follow-up with his PCP which is [facility] (3) Hypoglycemia Is this a current diagnosis for this admission?: Yes Plan: Patient has had no overt hypoglycemic episodes in the past 24 hours however has had borderline values 09/19/2019-hypoglycemia is resolved. (4) Cocaine abuse Is this a current diagnosis for this admission?: Yes Plan: Patient's cocaine abuse is ongoing (5) Noncompliance Is this a current diagnosis for this admission?: Yes Plan: Patient's noncompliance and lifestyle choices will likely contribute to his early demise (6) Hypokalemia Is this a current diagnosis for this admission?: Yes Plan: Resolved Monitor - Additional Information Resuscitation Status: Full Code Discharge Diet: Diabetic Discharge Activity: Activity As Tolerated Referrals: ALFONSO OVALLE PA-C [Primary Care Provider] - 09/26/19 9:15 am Prescriptions: Insulin Glargine,Hum.rec.anlog [Lantus Insulin 100 Unit/1 ml 10 ml] 11 unit SUBCUT Q12 30 Days #2 vial Lisinopril [Prinivil 5 mg Tablet] 10 mg PO DAILY 30 Days #30 tablet Home Medications: Carvedilol [Coreg 6.25 mg Tablet] 6.25 mg PO Q12 #60 tablet 08/09/19 Insulin Lispro [Humalog Kwikpen U-100] 1 - 12 unit SQ ACHS PRN #1 insuln.pen 08/19/19 Famotidine [Pepcid 20 mg Tablet] 20 mg PO DAILY 09/13/19 Paroxetine HCl [Paxil] 10 mg PO DAILY 09/13/19 Insulin Glargine,Hum.rec.anlog [Lantus Insulin 100 Unit/1 ml 10 ml] 11 unit SUBCUT Q12 30 Days #2 vial 09/19/19 Lisinopril [Prinivil 5 mg Tablet] 10 mg PO DAILY 30 Days #30 tablet 09/19/19 History of Present Illiness History of Present Illness: AMPARO PHAN is a 53 year old male 53 yo man intubated for unresponsivenes due to DKA. 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 He was found on the floor by his sister and intubated due to unresponsiveness. Last seen well 2 days ago. He is slightly hypothermic at 95, had rocuronium and etomidate for intubated which me be part of his unresponsiveness. He is geting his 2nd liter of saline, 1.5 in the field. In previous notes he is non-compliant has tested positive for cocaine and THC, cocaine today. He is positive for Hep C. He will need the ICU for intubation and insulin drip. Hospital Course Hospital Course: 53 yo man intubated for unresponsivenes due to DKA. 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 He was found on the floor by his sister and intubated due to unresponsiveness. Last seen well 2 days ago. He is slightly hypothermic at 95, had rocuronium and etomidate for intubated which me be part of his unresponsiveness. He is geting his 2nd liter of saline, 1.5 in the field. In previous notes he is non-compliant has tested positive for cocaine and THC, cocaine today. He is positive for Hep C. He will need the ICU for intubation and insulin drip. 09/13- Extubated and out of DKA. 09/14-Patient answers questions with minimal/one-word responses. He remains belligerent this a.m. 09/15-Patient much more interactive today. States that he feels "good" 09/16-Patient continues to be more interactive. When asked how he is doing he says better. No belligerent behavior exhibited or reported by nursing staff. 09/17-Patient the most interactive and cooperative he has been during this hospitalization. When asked how he is doing he states "fine". Physical Exam Vital Signs: Temp Pulse Resp BP Pulse Ox 98.2 F 68 20 190/94 H 97 09/19/19 11:15 09/19/19 11:15 09/19/19 11:15 09/19/19 11:15 09/19/19 11:15 Intake & Output 09/18/19 09/19/19 09/20/19 06:59 06:59 06:59 Intake Total 2263 1856 430 Output Total 4 500 Balance 2259 1356 430 Weight 49.2 kg 50.8 kg General appearance: PRESENT: no acute distress, cooperative, thin Head exam: PRESENT: atraumatic Eye exam: PRESENT: conjunctiva pink, PERRLA Ear exam: PRESENT: normal external ear exam Mouth exam: PRESENT: neck supple Neck exam: ABSENT: carotid bruit, JVD, lymphadenopathy, thyromegaly Respiratory exam: PRESENT: decreased breath sounds Cardiovascular exam: PRESENT: RRR. ABSENT: diastolic murmur, rubs, systolic murmur GI/Abdominal exam: PRESENT: normal bowel sounds, soft. ABSENT: distended, guarding, mass, organolmegaly, rebound, tenderness Rectal exam: PRESENT: deferred Extremities exam: PRESENT: full ROM. ABSENT: calf tenderness, clubbing, pedal edema Neurological exam: PRESENT: alert, awake, oriented to person, oriented to place, oriented to time, oriented to situation, CN II-XII grossly intact. ABSENT: motor sensory deficit Psychiatric exam: PRESENT: appropriate affect, normal mood. ABSENT: homicidal ideation, suicidal ideation Results Laboratory Results: WBC 6.0 10^3/uL (4.0-10.5) 09/19/19 06:14 RBC 2.74 10^6/uL (4.35-5.55) L 09/19/19 06:14 Hgb 8.9 g/dL (13.5-17.0) L 09/19/19 06:14 Hct 26.0 % (37.9-51.0) L 09/19/19 06:14 MCV 95 fl (80-97) 09/19/19 06:14 MCH 32.4 pg (27.0-33.4) 09/19/19 06:14 MCHC 34.2 g/dL (32.0-36.0) 09/19/19 06:14 RDW 14.5 % (11.5-14.0) H 09/19/19 06:14 Plt Count 177 10^3/uL (150-450) 09/19/19 06:14 Lymph % (Auto) Not Reportable 09/19/19 06:14 Blanco % (Auto) Not Reportable 09/19/19 06:14 Eos % (Auto) Not Reportable 09/19/19 06:14 Baso % (Auto) Not Reportable 09/19/19 06:14 Absolute Neuts (auto) Not Reportable 09/19/19 06:14 Absolute Lymphs (auto) Not Reportable 09/19/19 06:14 Absolute Monos (auto) Not Reportable 09/19/19 06:14 Absolute Eos (auto) Not Reportable 09/19/19 06:14 Absolute Basos (auto) Not Reportable 09/19/19 06:14 Total Counted 100 09/19/19 06:14 Seg Neutrophils % Not Reportable 09/19/19 06:14 Seg Neuts % (Manual) 65 % (42-78) 09/19/19 06:14 Band Neutrophils % 2 % (3-5) L 09/14/19 03:41 Lymphocytes % (Manual) 13 % (13-45) 09/19/19 06:14 Monocytes % (Manual) 19 % (3-13) H 09/19/19 06:14 Eosinophils % (Manual) 2 % (0-6) 09/19/19 06:14 Basophils % (Manual) 1 % (0-2) 09/19/19 06:14 Abs Neuts (Manual) 3.9 10^3/uL (1.7-8.2) 09/19/19 06:14 Abs Lymphs (Manual) 0.8 10^3/uL (0.5-4.7) 09/19/19 06:14 Abs Monocytes (Manual) 1.1 10^3/uL (0.1-1.4) 09/19/19 06:14 Absolute Eos (Manual) 0.1 10^3/uL (0.0-0.6) 09/19/19 06:14 Abs Basophils (Manual) 0.1 10^3/uL (0.0-0.2) 09/19/19 06:14 Toxic Granulation 1+ 09/19/19 06:14 Toxic Vacuolation PRESENT 09/13/19 11:27 Clumped Platelets PRESENT 09/13/19 11:27 Platelet Comment ADEQUATE 09/19/19 06:14 Polychromasia SLIGHT 09/19/19 06:14 Anisocytosis SLIGHT 09/14/19 03:41 Macrocytosis SLIGHT 09/14/19 03:41 PT 14.4 SEC (11.4-15.4) 09/13/19 11:27 INR 1.10 09/13/19 11:27 APTT 26.7 SEC (23.5-35.8) 09/13/19 11:27 Carbonic Acid 0.77 mmol/L (1.05-1.35) L 09/13/19 11:27 HCO3/H2CO3 Ratio 4:1 09/13/19 11:27 ABG pH 6.78 (7.35-7.45) L* 09/13/19 11:27 ABG pCO2 25.5 mmHg (35-45) L 09/13/19 11:27 ABG pO2 366.3 mmHg (80-100) H 09/13/19 11:27 ABG HCO3 3.7 mmol/L (20-24) L 09/13/19 11:27 ABG Total CO2 4.5 mmol/L (23-27) L 09/13/19 11:27 ABG O2 Saturation 99.4 % (94-98) H 09/13/19 11:27 ABG Base Excess -30.7 mmol/L 09/13/19 11:27 FiO2 90% 09/13/19 11:27 Sodium 132.5 mmol/L (137-145) L 09/19/19 06:14 Potassium 3.5 mmol/L (3.6-5.0) L 09/19/19 06:14 Chloride 102 mmol/L (98-107) 09/19/19 06:14 Carbon Dioxide 29 mmol/L (22-30) 09/19/19 06:14 Anion Gap 2 (5-19) L 09/19/19 06:14 BUN 17 mg/dL (7-20) 09/19/19 06:14 Creatinine 0.78 mg/dL (0.52-1.25) 09/19/19 06:14 Est GFR ( Amer) > 60 (>60) 09/19/19 06:14 Est GFR (MDRD) Non-Af > 60 (>60) 09/19/19 06:14 Glucose 158 mg/dL (75-110) H 09/19/19 06:14 POC Glucose 197 mg/dL (70-110) H 09/19/19 11:22 Lactic Acid 2.6 mmol/L (0.7-2.1) H 09/13/19 11:27 Calcium 8.0 mg/dL (8.4-10.2) L 09/19/19 06:14 Magnesium 1.9 mg/dL (1.6-2.3) 09/18/19 06:07 Total Bilirubin 0.4 mg/dL (0.2-1.3) 09/14/19 07:20 Direct Bilirubin 0.1 mg/dL (0.0-0.4) 09/14/19 07:20 Neonat Total Bilirubin Not Reportable 09/14/19 07:20 Neonat Direct Bilirubin Not Reportable 09/14/19 07:20 Neonat Indirect Bili Not Reportable 09/14/19 07:20 AST 51 U/L (17-59) 09/14/19 07:20 ALT 37 U/L (<50) 09/14/19 07:20 Alkaline Phosphatase 117 U/L (38-126) 09/14/19 07:20 Creatine Kinase 77 U/L (55-170) 09/13/19 11:27 CK-MB (CK-2) 2.30 ng/mL (<4.55) 09/13/19 11:27 Troponin I < 0.012 ng/mL 09/13/19 11:27 Total Protein 6.5 g/dL (6.3-8.2) 09/14/19 07:20 Albumin 3.5 g/dL (3.5-5.0) 09/14/19 07:20 Urine Color YELLOW 09/13/19 12:02 Urine Appearance SLIGHTLY-CLOUDY 09/13/19 12:02 Urine pH 5.0 (5.0-9.0) 09/13/19 12:02 Ur Specific [place] 1.016 09/13/19 12:02 Urine Protein 100 mg/dL (NEGATIVE) H 09/13/19 12:02 Urine Glucose (UA) >=500 mg/dL (NEGATIVE) H 09/13/19 12:02 Urine Ketones 80 mg/dL (NEGATIVE) H 09/13/19 12:02 Urine Blood LARGE (NEGATIVE) H 09/13/19 12:02 Urine Nitrite (Reflex) NEGATIVE (NEGATIVE) 09/13/19 12:02 Urine Bilirubin NEGATIVE (NEGATIVE) 09/13/19 12:02 Urine Urobilinogen NEGATIVE mg/dL (<2.0) 09/13/19 12:02 Leukocyte Esterase Rfl NEGATIVE (NEGATIVE) 09/13/19 12:02 Urine RBC (Auto) 11 /HPF 09/13/19 12:02 U Hyaline Cast (Auto) 6 /LPF 09/13/19 12:02 Urine WBC (Reflex) 9 /HPF 09/13/19 12:02 Squamous Epi Cells Auto 4 /HPF 09/13/19 12:02 Amorphous Sediment Auto TRACE /HPF 09/13/19 12:02 Urine Mucus (Auto) RARE /LPF 09/13/19 12:02 Urine Ascorbic Acid NEGATIVE (NEGATIVE) 09/13/19 12:02 Salicylates < 1.0 mg/dL (2.0-20.0) L 09/13/19 11:27 Urine Opiates Screen NEGATIVE 09/13/19 12:02 Urine Methadone Screen NEGATIVE 09/13/19 12:02 Acetaminophen < 10 ug/mL (10-30) L 09/13/19 11:27 Ur Barbiturates Screen NEGATIVE 09/13/19 12:02 Ur Phencyclidine Scrn NEGATIVE 09/13/19 12:02 Ur Amphetamines Screen NEGATIVE 09/13/19 12:02 U Benzodiazepines Scrn NEGATIVE 09/13/19 12:02 Urine Cocaine Screen UNCONFIRMED POSITIVE 09/13/19 12:02 U Marijuana (THC) Screen NEGATIVE 09/13/19 12:02 Serum Alcohol < 10 mg/dL (NONE DETECTED) 09/13/19 11:27 09/13/19 11:27 CK-MB (CK-2) 2.30 Troponin I < 0.012 Impressions: Cervical Spine CT 09/13/19 00:00 IMPRESSION: Degenerative disc disease. Spondylosis. Mild facet arthropathy. No acute finding. Chest X-Ray 09/13/19 11:48 IMPRESSION: Chronic lung changes. Endotracheal tube is in position as described. 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 No acute intracranial imaging findings. EVIDENCE OF ACUTE STROKE: NO. KUB X-Ray 09/13/19 13:30 IMPRESSION: Partially imaged enteric tube terminates subdiaphragmatically ; the proximal port is not visualized. Consider advancing 8 to 10 cm. Ill-defined calcific density overlying the right renal shadow may represent nephrolithiasis, enteric contents, or other. Plan Plan of Treatment: Patient is advised to be compliant with medications and follow-up with PCP Mia apple. Time Spent: Greater than 30 Minutes Stroke Is this a Stroke Patient?: No Acute Heart Failure - Is this a Heart Failure Patient?: No
== END 2019-09-19 13:25 | disposition home or self-care (01) | DRG 637 ==
LOC: ER 11:42 → EH 14:07 → ICU 17:10 → 3W 09-14 13:26
PROVIDERS: ADMIT Anesthesiology; ATTEND Internal Medicine
PROC: 5A1935Z Respiratory Ventilation, Less than 24 Consecutive Hours (ICD-10-PCS; principal; 2019-09-13)
DX: E10.11 Type 1 diabetes mellitus with ketoacidosis with coma (principal); J96.00 Acute respiratory failure, unspecified whether with hypoxia or hypercapnia; N17.9 Acute kidney failure, unspecified; E44.0 Moderate protein-calorie malnutrition; Z68.1 Body mass index [BMI] 19.9 or less, adult; I50.30 Unspecified diastolic (congestive) heart failure; I11.0 Hypertensive heart disease with heart failure; B19.20 Unspecified viral hepatitis C without hepatic coma; E86.0 Dehydration; E87.5 Hyperkalemia; E87.6 Hypokalemia; E10.649 Type 1 diabetes mellitus with hypoglycemia without coma; R68.0 Hypothermia, not associated with low environmental temperature; F14.10 Cocaine abuse, uncomplicated; F19.10 Other psychoactive substance abuse, uncomplicated; Z91.11 Patient's noncompliance with dietary regimen; Z79.4 Long term (current) use of insulin; Z79.891 Long term (current) use of opiate analgesic; Z79.899 Other long term (current) drug therapy
CPT/HCPCS: 36415; 51702; 70450; 71045; 72125; 74018; 80048; 80053; 80307; 81001; 82550; 82553; 82803; 82962; 83605; 83735; 84484; 85025; 85610; 85730; 87070; 93005; 93010; 94002; 96361; 96374; 96375; 99221; 99291; C9113; J0360; J1630; J1644; J1815; J2704; J3230; J3475; J3480; J3490; J7030; J7042

== ENCOUNTER 2019-09-25 19:26 | Inpatient (IN) | payer MEDICAID ==
[2019-09-25] MEDS ORDERED: NORMAL SALINE 1000 ML 1,000 ML IV ONE ×2 (19:42→20:41)
--- NOTE | 2019-09-25 19:45 | ER Document Report ---
ED Medical Screen (RME) - General Chief Complaint: High Blood Sugar Stated Complaint: HIGH BLOOD SUGAR, FEELS UNWELL Time Seen by Provider: 09/25/19 19:39 Primary Care Provider: ALFONSO OVALLE PA-C [Primary Care Provider] - Follow up as needed Mode of Arrival: Wheelchair Information source: Patient Notes: Patient presents complaining of elevated blood sugar reading. Patient reports that he is uncertain how long his blood sugar has been high although he does state he is compliant with his diabetic regimen. Patient has left knee erythema with calor, patient also with erythema and swelling to the left elbow with erythematous skin lesion to the left antecubital area and left upper arm. Patient has a history of noncompliance as well as substance abuse. Patient somewhat hostile during interview and not forthcoming with providing information regarding his condition. I have greeted and performed a rapid initial assessment of this patient. A comprehensive ED assessment and evaluation of the patient, analysis of test results and completion of the medical decision making process will be conducted by additional ED providers. TRAVEL OUTSIDE OF THE [place] IN LAST 30 DAYS: No - Related Data Allergies/Adverse Reactions: No Known Allergies Allergy (Verified 06/08/17 20:19) Past Medical History - Past Medical History Cardiac Medical History: Reports: Hx Congestive Heart Failure - Diastolic, Hx Hypertension Pulmonary Medical History: Denies: Hx Asthma, Hx COPD Neurological Medical History: Denies: Hx Seizures Endocrine Medical History: Reports: Hx Diabetes Mellitus Type 1. Denies: Hx Diabetes Mellitus Type 2, Hx Hyperthyroidism, Hx Hypothyroidism Renal/ Medical History: Reports: Hx Renal Insufficiency GI Medical History: Denies: Hx Cirrhosis, Hx Hepatitis Musculoskeltal Medical History: Denies Hx Arthritis, Denies Hx Gout Skin Medical History: Denies Hx Eczema, Denies Hx Psoriasis Psychiatric Medical History: Denies: Hx Depression Infectious Medical History: Denies: Hx Hepatitis Past Surgical History: Reports: Other - Removal of part of a lung as a child due to abscess. - Immunizations Immunizations up to date: Yes Hx Diphtheria, Pertussis, Tetanus Vaccination: Yes Physical Exam - Vital signs Vitals: Temp Pulse Resp BP Pulse Ox 98.7 F 97 16 175/90 H 99 09/25/19 19:35 09/25/19 19:35 09/25/19 19:35 09/25/19 19:35 09/25/19 19:35 - General Notes: Erythema to left knee and left upper extremity, left upper extremity with 2 crusted erythematous skin lesions. Patient disheveled in appearance Course - Vital Signs Vital signs: Temp Pulse Resp BP Pulse Ox 98.7 F 97 16 175/90 H 99 09/25/19 19:35 09/25/19 19:35 09/25/19 19:35 09/25/19 19:35 09/25/19 19:35 Doctor's Discharge - Discharge Referrals: ALFONSO OVALLE PA-C [Primary Care Provider] - Follow up as needed
[2019-09-25] MEDS ORDERED: VANCOMYCIN HCL INJ 1000 MG VIAL IV ONE (20:40)
[2019-09-25] MEDS ORDERED: PIPERACILLIN/TAZOBACTAM 4.5 GM VIAL IV ONE (20:40)
[2019-09-25 20:41] LABS: VENOUS BLOOD BASE EXCESS 5.8 mmol/L; VENOUS BLOOD HCO3 30.4 mmol/L (20-32); VENOUS BLOOD PCO2 43.8 mmHg (35-63); VENOUS BLOOD PH 7.46 (7.30-7.42)
[2019-09-25 20:43] LABS: HEMATOCRIT 29.4 % (37.9-51.0); MEAN CORPUSCULAR HEMOGLOBIN 31.9 pg (27.0-33.4); MEAN CORPUSCULAR HGB CONC 33.8 g/dL (32.0-36.0); MEAN CORPUSCULAR VOLUME 94 fl (80-97); PLATELET COUNT 443 10^3/uL (150-450); RED BLOOD COUNT 3.13 10^6/uL (4.35-5.55); RED CELL DISTRIBUTION WIDTH 14.1 % (11.5-14.0); WHITE BLOOD COUNT 15.3 10^3/uL (4.0-10.5)
--- NOTE | 2019-09-25 20:44 | ER Document Report ---
ED General - General Chief Complaint: High Blood Sugar Stated Complaint: HIGH BLOOD SUGAR, FEELS UNWELL Time Seen by Provider: 09/25/19 19:39 Primary Care Provider: ALFONSO OVALLE PA-C [Primary Care Provider] - Follow up as needed Mode of Arrival: Wheelchair TRAVEL OUTSIDE OF THE [place] IN LAST 30 DAYS: No - HPI Patient complains to provider of: hi blood sugar Notes: 53 y/o presenting to ED for evaluation of generalized weakness, body cramping and hi blood sugar he was recently in the hospital for the same he states he is giving himself insulin 2x daily but cannot tell me how many units or what type of insulin he is using no fever or chills he notes he has 2 areas of tenderness and swelling at iv sites from previous hospitalization on LUE - Related Data Allergies/Adverse Reactions: No Known Allergies Allergy (Verified 06/08/17 20:19) Past Medical History - General Information source: Patient - Social History Smoking Status: Current Every Day Smoker Family History: DM, Hypertension. denies: CAD, Malignancy - Past Medical History Cardiac Medical History: Reports: Hx Congestive Heart Failure - Diastolic, Hx Hypertension Pulmonary Medical History: Denies: Hx Asthma, Hx COPD Neurological Medical History: Denies: Hx Seizures Endocrine Medical History: Reports: Hx Diabetes Mellitus Type 1. Denies: Hx Diabetes Mellitus Type 2, Hx Hyperthyroidism, Hx Hypothyroidism Renal/ Medical History: Reports: Hx Renal Insufficiency GI Medical History: Denies: Hx Cirrhosis, Hx Hepatitis Musculoskeletal Medical History: Denies Hx Arthritis, Denies Hx Gout Skin Medical History: Denies Hx Eczema, Denies Hx Psoriasis Psychiatric Medical History: Denies: Hx Depression Infectious Medical History: Denies: Hx Hepatitis Past Surgical History: Reports: Other - Removal of part of a lung as a child due to abscess. - Immunizations Immunizations up to date: Yes Hx Diphtheria, Pertussis, Tetanus Vaccination: Yes Review of Systems - Review of Systems Constitutional: No symptoms reported. denies: Chills, Fever EENT: No symptoms reported Cardiovascular: No symptoms reported Respiratory: No symptoms reported Gastrointestinal: No symptoms reported Genitourinary: No symptoms reported Male Genitourinary: No symptoms reported Musculoskeletal: Muscle pain Skin: Rash Hematologic/Lymphatic: No symptoms reported Neurological/Psychological: No symptoms reported Physical Exam - Vital signs Vitals: Temp Pulse Resp BP Pulse Ox 98.7 F 97 16 175/90 H 99 08/17/20 19:35 09/25/19 19:35 09/25/19 19:35 09/25/19 19:35 09/25/19 19:35 Interpretation: Normal - General General appearance: Appears well, Alert - HEENT Head: Normocephalic, Atraumatic Eyes: Normal Pupils: PERRL - Respiratory Respiratory status: No respiratory distress Chest status: Nontender Breath sounds: Normal Chest palpation: Normal - Cardiovascular Rhythm: Regular Heart sounds: Normal auscultation Murmur: No - Abdominal Inspection: Normal Distension: No distension Bowel sounds: Normal Tenderness: Nontender Organomegaly: No organomegaly - Back Back: Normal, Nontender - Extremities General upper extremity: Normal inspection, Nontender, Normal color, Normal ROM, Normal temperature General lower extremity: Normal inspection, Nontender, Normal color, Normal ROM, Normal temperature, Normal weight bearing. No: Regine's sign - Neurological Neuro grossly intact: Yes Cognition: Normal Orientation: AAOx4 [place] Coma Scale Eye Opening: Spontaneous [place] Coma Scale Verbal: Oriented [place] Coma Scale Motor: Obeys Commands Frankie Coma Scale Total: 15 Speech: Normal Motor strength normal: LUE, RUE, LLE, RLE Sensory: Normal - Psychological Associated symptoms: Normal affect, Normal mood - Skin Skin Temperature: Warm Skin Moisture: Dry Skin Color: Normal Notes: LUE with 2 areas of redness and swelling at previous iv sites Course - Re-evaluation Re-evalutation: 09/25/19 20:43 patient appears w/ blood sugar reading hi could be related to compliance or infection will start ivf and iv abx for cellulitis/phlebitis of LUE will check labs prior to starting insulin therapy 09/25/19 22:14 admit requested for LUE infection in context of poorly controlled diabetes - Vital Signs Vital signs: Temp Pulse Resp BP Pulse Ox 98.7 F 97 23 H 175/90 H 100 09/25/19 19:35 09/25/19 19:35 09/25/19 22:00 09/25/19 19:35 09/25/19 22:00 - Laboratory Result Diagrams: 09/25/19 19:59 09/25/19 19:59 Laboratory results interpreted by me: 09/25/19 09/25/19 09/25/19 19:59 19:59 19:59 WBC 15.3 H RBC 3.13 L Hgb 10.0 L Hct 29.4 L RDW 14.1 H Seg Neuts % (Manual) 93 H Lymphocytes % (Manual) 7 L Monocytes % (Manual) 0 L Abs Neuts (Manual) 14.2 H Abs Monocytes (Manual) 0.0 L VBG pH Sodium 128.7 L Chloride 86 L Carbon Dioxide 33 H Glucose 572 H* Alkaline Phosphatase 145 H Albumin 3.3 L Urine Protein 30 H Urine Glucose (UA) >=500 H Urine Ketones 20 H Urine Blood SMALL H 09/25/19 19:59 WBC RBC Hgb Hct RDW Seg Neuts % (Manual) Lymphocytes % (Manual) Monocytes % (Manual) Abs Neuts (Manual) Abs Monocytes (Manual) VBG pH 7.46 H Sodium Chloride Carbon Dioxide Glucose Alkaline Phosphatase Albumin Urine Protein Urine Glucose (UA) Urine Ketones Urine Blood - EKG Interpretation by Me Additional EKG results interpreted by me: 09/25/19 20:45 NSR, rate of 91, LAE, LVH, poor R wave progression w/ nonspecific and stable ST segment changes in precordial leads. nonspecific and stable T wave changes Discharge - Discharge Clinical Impression: Hyperglycemia, Phlebitis Condition: Stable Disposition: ADMITTED INPATIENT Unit Admitted: Telemetry Referrals: ALFONSO OVALLE PA-C [Primary Care Provider] - Follow up as needed
[2019-09-25 20:48] LABS: APPEARANCE,URINE CLEAR; BILIRUBIN,URINE NEGATIVE (NEGATIVE); COLOR,URINE STRAW; GLUCOSE, URINE >=500 mg/dL (NEGATIVE); KETONES,URINE 20 mg/dL (NEGATIVE); LEUKOCYTE ESTERASE,URINE NEGATIVE (NEGATIVE); NITRITE,URINE NEGATIVE (NEGATIVE); PROTEIN,URINE 30 mg/dL (NEGATIVE); URINE SPECIFIC GRAVITY 1.023; UROBILINOGEN,URINE NEGATIVE mg/dL (<2.0)
[2019-09-25 20:52] LABS: ALBUMIN 3.3 g/dL (3.5-5.0); ALKALINE PHOSPHATASE 145 U/L (38-126); ANION GAP 10 (5-19); ASPARTATE AMINO TRANSFERASE 17 U/L (17-59); BILIRUBIN,DIRECT 0.1 mg/dL (0.0-0.4); BILIRUBIN,TOTAL 0.4 mg/dL (0.2-1.3); BLOOD UREA NITROGEN 12 mg/dL (7-20); CALCIUM 8.7 mg/dL (8.4-10.2); CARBON DIOXIDE 33 mmol/L (22-30); CHLORIDE 86 mmol/L (98-107); POTASSIUM 3.6 mmol/L (3.6-5.0); TOTAL PROTEIN 6.4 g/dL (6.3-8.2)
[2019-09-25 21:01] LABS: ABSOLUTE LYMPHOCYTES# (MANUAL) 1.1 10^3/uL (0.5-4.7); BASOPHILS % (MANUAL) 0 % (0-2); EOSINOPHILS % (MANUAL) 0 % (0-6); LYMPHOCYTES % (MANUAL) 7 % (13-45); MONOCYTES % (MANUAL) 0 % (3-13); SEGMENTED NEUTROPHILS % (MAN) 93 % (42-78); TOTAL CELLS COUNTED 100
[2019-09-25 21:02] LABS: GLUCOSE 572 mg/dL (75-110)
[2019-09-25 21:03] LABS: ANISOCYTOSIS SLIGHT; PLATELET COMMENT ADEQUATE; POIKILOCYTOSIS SLIGHT; POLYCHROMASIA SLIGHT; TEAR DROP CELLS SLIGHT; TOXIC GRANULATION 1+
[2019-09-25 21:04] LABS: URINE AMPHETAMINES SCREEN NEGATIVE; URINE BARBITURATES SCREEN NEGATIVE; URINE BENZODIAZEPINES SCREEN NEGATIVE; URINE COCAINE SCREEN NEGATIVE; URINE MARIJUANA (THC) SCREEN NEGATIVE; URINE METHADONE SCREEN NEGATIVE; URINE PHENCYCLIDINE SCREEN NEGATIVE
[2019-09-25] MEDS ORDERED: POTASSIUM CHLORIDE 20 MEQ PACKET PO ONE (21:16)
[2019-09-25] MEDS ORDERED: POTASSI CL 20 MEQ/50 ML RIDER 20 MEQ/50 ML RTUPB IV ONE (21:16)
--- NOTE | 2019-09-25 21:28 | EKG REPORT ---
SEVERITY:- ABNORMAL ECG - SINUS RHYTHM PROBABLE LEFT ATRIAL ABNORMALITY PROBABLE LEFT VENTRICULAR HYPERTROPHY ANTERIOR Q WAVES, POSSIBLY DUE TO LVH vs ANTERIOR TN NONSPECIFIC T ABNORMALITIES, INFERIOR LEADS : Confirmed by: Fede Toure 25-Sep-2019 21:27:54
[2019-09-25] MEDS ORDERED: HYDRALAZINE HCL INJ/PF 20 MG/1 ML SDV IV ONE (22:28)
[2019-09-25] MEDS ORDERED: VANCOMYCIN HCL 0 MG in DEXTROSE 5%-WATER 250 ML IV NR (22:45)
[2019-09-25] MEDS ORDERED: ONDANSETRON HCL INJ/PF 4 MG/2 ML SDV IV PRN (22:52)
--- NOTE | 2019-09-25 23:07 | PDOC H&P ---
History of Present Illness Admission Date/PCP: ALFONSO OVALLE PA-C History of Present Illness: AMPARO PHAN is a 53 year old male with a history of insulin-dependent diabetes, cocaine abuse, and noncompliance who was just discharged from this hospital less than a week ago after being admitted at that time for DKA. He has not been checking his blood sugars at home and he has a place on his left arm where his IV was that he kept picking at and mashing. It has swollen up now. He has not been febrile. There is no drainage. His blood sugar was elevated but he does not know how long it is been elevated because he is not been checking his blood sugar. It also does not look like he has washed since then because he still has residue from the tape that was holding a bandage over the area on the left arm during his previous admission. He claims he had some leg swelling but he does not have any of that now. Past Medical History Cardiac Medical History: Reports: Congestive Heart Failure - Diastolic, Hypertension Pulmonary Medical History: Denies: Asthma, Chronic Obstructive Pulmonary Disease (COPD) Neurological Medical History: Denies: Seizures Endocrine Medical History: Reports: Diabetes Mellitus Type 1 Denies: Diabetes Mellitus Type 2, Hyperthyroidism, Hypothyroidism GI Medical History: Denies: Cirrhosis, Hepatitis Musculoskeltal Medical History: Denies: Arthritis, Gout Skin Medical History: Denies: Eczema, Psoriasis Psychiatric Medical History: Denies: Depression Hematology: Denies: Anemia, Bleeding Tendencies Past Surgical History Past Surgical History: Reports: Other - Removal of part of a lung as a child due to abscess. Social History Smoking Status: Current Every Day Smoker Frequency of Alcohol Use: Heavy - Denies current use of alcohol but has a history of heavy alcohol usage/abuse Hx Recreational Drug Use: Yes Drugs: Cocaine Hx Prescription Drug Abuse: Yes Family History Family History: DM, Hypertension. denies: CAD, Malignancy Parental Family History Reviewed: Yes Children Family History Reviewed: NA Sibling(s) Family History Reviewed.: Yes Medication/Allergy Home Medications: Carvedilol [Coreg 6.25 mg Tablet] 6.25 mg PO Q12 #60 tablet 08/09/19 Insulin Lispro [Humalog Kwikpen U-100] 1 - 12 unit SQ ACHS PRN #1 insuln.pen 08/19/19 Famotidine [Pepcid 20 mg Tablet] 20 mg PO DAILY 09/13/19 Paroxetine HCl [Paxil] 10 mg PO DAILY 09/13/19 Insulin Glargine,Hum.rec.anlog [Lantus Insulin 100 Unit/1 ml 10 ml] 11 unit SUBCUT Q12 30 Days #2 vial 09/19/19 Lisinopril [Prinivil 5 mg Tablet] 10 mg PO DAILY 30 Days #30 tablet 09/19/19 Allergies/Adverse Reactions: No Known Allergies Allergy (Verified 06/08/17 20:19) Review of Systems All systems: reviewed and no additional remarkable complaints except as stated - All systems were reviewed and were negative except as noted in the HPI Physical Exam Vital Signs: Temp Pulse Resp BP Pulse Ox 98.7 F 97 21 H 197/109 H 100 09/25/19 19:35 09/25/19 19:35 09/25/19 22:15 09/25/19 22:15 09/25/19 22:15 Intake & Output 09/24/19 09/25/19 09/26/19 06:59 06:59 06:59 Intake Total 1999 Balance 1999 Weight 61.235 kg General appearance: PRESENT: no acute distress, disheveled, thin Head exam: PRESENT: atraumatic, normocephalic Eye exam: PRESENT: EOMI, PERRLA. ABSENT: conjunctival injection, nystagmus, scleral icterus Ear exam: PRESENT: normal external ear exam Mouth exam: PRESENT: dry mucosa, neck supple Teeth exam: PRESENT: poor dentation Throat exam: ABSENT: post pharyngeal erythema Neck exam: PRESENT: full ROM. ABSENT: carotid bruit, JVD, lymphadenopathy, meningismus, tenderness, thyromegaly Respiratory exam: PRESENT: clear to auscultation baldemar, symmetrical, unlabored. ABSENT: accessory muscle use, chest wall tenderness, crackles, prolonged expiratory phas, rhonchi, tachypnea, wheezes Cardiovascular exam: PRESENT: RRR, +S1, +S2 Pulses: PRESENT: normal carotid pulses Vascular exam: PRESENT: normal capillary refill GI/Abdominal exam: PRESENT: normal bowel sounds, soft. ABSENT: distended, guarding, rebound, tenderness Extremities exam: PRESENT: other - He has some induration on the medial antecubital space in the left elbow, with 1 raised indurated area without fluctuance or erythema at the superior aspect of the area in question. ABSENT: clubbing, pedal edema Musculoskeletal exam: PRESENT: normal inspection. ABSENT: deformity Neurological exam: PRESENT: awake, oriented to person, oriented to place, oriented to situation, CN II-XII grossly intact. ABSENT: motor sensory deficit Psychiatric exam: PRESENT: flat affect Skin exam: PRESENT: dry, warm Results Laboratory Results: 09/25/19 19:59 09/25/19 19:59 09/25/19 09/25/19 09/25/19 19:59 19:59 19:59 WBC 15.3 H RBC 3.13 L Hgb 10.0 L Hct 29.4 L MCV 94 MCH 31.9 MCHC 33.8 RDW 14.1 H Plt Count 443 Seg Neutrophils % Not Reportable VBG pH VBG pCO2 VBG HCO3 VBG Base Excess Sodium 128.7 L Potassium 3.6 Chloride 86 L Carbon Dioxide 33 H Anion Gap 10 BUN 12 Creatinine 0.68 Est GFR ( Amer) > 60 Glucose 572 H* Calcium 8.7 Total Bilirubin 0.4 AST 17 Alkaline Phosphatase 145 H Total Protein 6.4 Albumin 3.3 L Lipase Urine Color STRAW Urine Appearance CLEAR Urine pH 6.0 Ur Specific [place] 1.023 Urine Protein 30 H Urine Glucose (UA) >=500 H Urine Ketones 20 H Urine Blood SMALL H Urine Nitrite NEGATIVE Ur Leukocyte Esterase NEGATIVE Urine WBC (Auto) 6 Urine RBC (Auto) 1 09/25/19 09/25/19 19:59 19:59 WBC RBC Hgb Hct MCV MCH MCHC RDW Plt Count Seg Neutrophils % VBG pH 7.46 H VBG pCO2 43.8 VBG HCO3 30.4 VBG Base Excess 5.8 Sodium Potassium Chloride Carbon Dioxide Anion Gap BUN Creatinine Est GFR ( Amer) Glucose Calcium Total Bilirubin AST Alkaline Phosphatase Total Protein Albumin Lipase 110.9 Urine Color Urine Appearance Urine pH Ur Specific [place] Urine Protein Urine Glucose (UA) Urine Ketones Urine Blood Urine Nitrite Ur Leukocyte Esterase Urine WBC (Auto) Urine RBC (Auto) Assessment and Plan - Diagnosis (1) Cellulitis of arm, left Is this a current diagnosis for this admission?: Yes Plan: There is not appear to be any area of abscess at this time. We will put him on some vancomycin. Blood cultures have been drawn. (2) Hyperglycemia Is this a current diagnosis for this admission?: Yes Plan: Put him on some fluids and have resumed his insulin regimen. Put him on a diabetic diet monitor the trend in his blood sugars. - Time Time Spent with patient: 35 or more minutes Anticipated Discharge Disposition: Home, Self Care Anticipated Discharge Timeframe: within 72 hours - Inpatient Certification Based on my medical assessment, after consideration of the patient's comorbidities, presenting symptoms, or acuity I expect that the services needed warrant INPATIENT care.: Yes I certify that my determination is in accordance with my understanding of Medicare's requirements for reasonable and necessary INPATIENT services [42 CFR 412.3e].: Yes Medical Necessity: Need Close Monitoring Due to Risk of Patient Decompensation, Need For IV Fluids, Need for IV Antibiotics, Risk of Complication if Not Cared For in Hospital
[2019-09-26] MEDS ORDERED: POTASSI CL 20 MEQ/50 ML RIDER 20 MEQ/50 ML RTUPB IV ONE (01:45)
[2019-09-26] MEDS: NORMAL SALINE 1000 ML 1,000 ML IV PRN ×3 (02:04→22:31)
[2019-09-26] MEDS ORDERED: GLUCAGON,HUMAN RECOMB 1 MG INJ IM PRN (04:34)
[2019-09-26] MEDS ORDERED: DEXTROSE 40% GEL 15 GM TUBE PO PRN ×2 (04:34)
[2019-09-26] MEDS ORDERED: DEXTROSE 50%-WATER 25 GM/50 ML DISP.SYRIN IV PRN ×2 (04:34)
[2019-09-26] MEDS: ACETAMINOPHEN 325 MG TABLET PO PRN ×2 (05:28→22:38)
[2019-09-26] MEDS: HEPARIN SOD (PORCINE) 5,000 UNIT/ML 1 ML VIAL SUBCUT SCH ×3 (05:28→22:26)
[2019-09-26 05:29] LABS: HEMOGLOBIN 8.7 g/dL (13.5-17.0); MEAN CORPUSCULAR HGB CONC 34.6 g/dL (32.0-36.0); MEAN CORPUSCULAR VOLUME 93 fl (80-97); PLATELET COUNT 368 10^3/uL (150-450); RED CELL DISTRIBUTION WIDTH 14.3 % (11.5-14.0); WHITE BLOOD COUNT 14.8 10^3/uL (4.0-10.5)
[2019-09-26 05:53] LABS: ANION GAP 8 (5-19); BLOOD UREA NITROGEN 6 mg/dL (7-20); CALCIUM 7.5 mg/dL (8.4-10.2); CARBON DIOXIDE 30 mmol/L (22-30); CHLORIDE 95 mmol/L (98-107); GLUCOSE 338 mg/dL (75-110); POTASSIUM 3.2 mmol/L (3.6-5.0)
[2019-09-26] MEDS: POTASSI CL 20 MEQ/50 ML RIDER 20 MEQ/50 ML RTUPB IV SCH ×2 (07:51→09:45)
[2019-09-26] MEDS: INSULIN LISPRO 100 UNIT/ML 3 ML VIAL SUBCUT SCH ×4 (08:05→22:21)
[2019-09-26] MEDS: CARVEDILOL 6.25 MG TABLET PO SCH ×2 (09:46→22:27)
[2019-09-26] MEDS: PAROXETINE HCL 20 MG TABLET PO SCH (09:46)
[2019-09-26] MEDS: LISINOPRIL 5 MG TABLET PO SCH (09:47)
[2019-09-26] MEDS: INSULIN GLARGINE,HUM.REC.ANLOG 1,000 UNIT/10 ML VIAL SUBCUT SCH ×2 (09:50→22:26)
[2019-09-26] MEDS: VANCOMYCIN HCL 750 MG in DEXTROSE 5%-WATER 250 ML IV SCH ×2 (11:00→22:28)
--- NOTE | 2019-09-26 14:44 | CDI QUERY ---
CDI Query CDI Review: Dear Provider, Please document in progress notes and D/C summary if you agree: severe heladio-protein malnutrition BMI 17.6 moderate heladio-protein malnutrition cachexia other CLINICAL DATA: BMI 17.6 / Ca 7.5 / Alb 3.3 / noncompliance / diabetes Thanks, Karla Palomares CDI [phone]
--- NOTE | 2019-09-26 14:50 | PDOC PROGRESS REPORT ---
Subjective Progress Note for:: 09/26/19 Subjective:: Patient offers no specific complaints. When asked if his arm is hurting he states yes Reason For Visit: CELLULITIS,HYPERGLYCEMIA Physical Exam Vital Signs: Temp Pulse Resp BP Pulse Ox 98.2 F 81 17 166/86 H 95 09/26/19 11:11 09/26/19 11:11 09/26/19 11:11 09/26/19 11:11 09/26/19 11:11 Intake & Output 09/25/19 09/26/19 09/27/19 06:59 06:59 06:59 Intake Total 2049 173 Balance 2049 1735 Weight 48.1 kg General appearance: PRESENT: no acute distress, cooperative, disheveled, thin Head exam: PRESENT: atraumatic, normocephalic Eye exam: PRESENT: conjunctiva pink Mouth exam: PRESENT: moist, tongue midline Neck exam: ABSENT: JVD Respiratory exam: PRESENT: clear to auscultation baldemar, symmetrical, unlabored. ABSENT: accessory muscle use Cardiovascular exam: PRESENT: RRR, +S1, +S2 Pulses: PRESENT: normal radial pulses GI/Abdominal exam: PRESENT: normal bowel sounds, soft. ABSENT: distended, tenderness Rectal exam: PRESENT: deferred Extremities exam: ABSENT: calf tenderness, pedal edema Musculoskeletal exam: PRESENT: ambulatory Neurological exam: PRESENT: alert, awake, oriented to person, oriented to place, oriented to time, oriented to situation, CN II-XII grossly intact. ABSENT: motor sensory deficit Psychiatric exam: PRESENT: normal mood, unusual affect. ABSENT: agitated, anxious Skin exam: PRESENT: dry, normal color, warm, other - Left arm (former IV site) edematous and erythemic without exudate. Results Laboratory Results: 09/26/19 05:15 09/26/19 05:15 09/25/19 09/25/19 09/25/19 19:59 19:59 19:59 WBC 15.3 H RBC 3.13 L Hgb 10.0 L Hct 29.4 L MCV 94 MCH 31.9 MCHC 33.8 RDW 14.1 H Plt Count 443 Seg Neutrophils % Not Reportable VBG pH VBG pCO2 VBG HCO3 VBG Base Excess Sodium 128.7 L Potassium 3.6 Chloride 86 L Carbon Dioxide 33 H Anion Gap 10 BUN 12 Creatinine 0.68 Est GFR ( Amer) > 60 Glucose 572 H* Calcium 8.7 Total Bilirubin 0.4 AST 17 Alkaline Phosphatase 145 H Total Protein 6.4 Albumin 3.3 L Lipase Urine Color STRAW Urine Appearance CLEAR Urine pH 6.0 Ur Specific [place] 1.023 Urine Protein 30 H Urine Glucose (UA) >=500 H Urine Ketones 20 H Urine Blood SMALL H Urine Nitrite NEGATIVE Ur Leukocyte Esterase NEGATIVE Urine WBC (Auto) 6 Urine RBC (Auto) 1 09/25/19 09/25/19 09/26/19 19:59 19:59 05:15 WBC 14.8 H RBC 2.70 L Hgb 8.7 L Hct 25.0 L MCV 93 MCH 32.0 MCHC 34.6 RDW 14.3 H Plt Count 368 Seg Neutrophils % VBG pH 7.46 H VBG pCO2 43.8 VBG HCO3 30.4 VBG Base Excess 5.8 Sodium Potassium Chloride Carbon Dioxide Anion Gap BUN Creatinine Est GFR ( Amer) Glucose Calcium Total Bilirubin AST Alkaline Phosphatase Total Protein Albumin Lipase 110.9 Urine Color Urine Appearance Urine pH Ur Specific [place] Urine Protein Urine Glucose (UA) Urine Ketones Urine Blood Urine Nitrite Ur Leukocyte Esterase Urine WBC (Auto) Urine RBC (Auto) 09/26/19 05:15 WBC RBC Hgb Hct MCV MCH MCHC RDW Plt Count Seg Neutrophils % VBG pH VBG pCO2 VBG HCO3 VBG Base Excess Sodium 132.5 L Potassium 3.2 L Chloride 95 L Carbon Dioxide 30 Anion Gap 8 BUN 6 L Creatinine 0.51 L Est GFR ( Amer) > 60 Glucose 338 H Calcium 7.5 L Total Bilirubin AST Alkaline Phosphatase Total Protein Albumin Lipase Urine Color Urine Appearance Urine pH Ur Specific [place] Urine Protein Urine Glucose (UA) Urine Ketones Urine Blood Urine Nitrite Ur Leukocyte Esterase Urine WBC (Auto) Urine RBC (Auto) Assessment and Plan - Diagnosis (1) Cellulitis of arm, left Is this a current diagnosis for this admission?: Yes Plan: No obvious abscess noted Continue current antibiotics (vancomycin and Zosyn) Blood cultures pending De-escalate antibiotics once blood cultures available (2) Leucocytosis Is this a current diagnosis for this admission?: Yes Plan: Continue antibiotics as noted above (3) Type 1 diabetes mellitus Is this a current diagnosis for this admission?: Yes Plan: Continue current basal (glargine) insulin 11 units subcutaneous every 12 hours Patient presented with significant hyperglycemia which has somewhat improved. It is likely that he was not taking his insulin as prescribed given his history of noncompliance Continue FS BS with SSI correction scale Titrate insulin as needed (4) Hyperglycemia due to type 1 diabetes mellitus Is this a current diagnosis for this admission?: Yes Plan: Hyperglycemia likely related to noncompliance as well as infection Continue to monitor closely and titrate basal insulin as needed (5) Anemia Is this a current diagnosis for this admission?: Yes Plan: Patient was discharged earlier this month with an hemoglobin of 8.9. On presentation his hemoglobin was 10.0 however this likely represented some deh ydration. He is currently 8.7 Guaiac stool Patient is had iron studies in the past (07/28) which revealed slightly low iron and transferrin with low normal TIBC and normal ferritin Add FeSO4 325 mg p.o. daily Check CBC in a.m. (6) Hyponatremia Is this a current diagnosis for this admission?: Yes Plan: Asymptomatic improved since yesterday No treatment indicated at this time Monitor (7) Hypokalemia Is this a current diagnosis for this admission?: Yes Plan: Repleted Monitor - Time Time Spent with patient: 25-34 minutes Medications reviewed and adjusted accordingly: Yes Anticipated Discharge Disposition: Home, Self Care Anticipated Discharge Timeframe: TBD
[2019-09-27 05:15] LABS: HEMATOCRIT 26.4 % (37.9-51.0); HEMOGLOBIN 9.1 g/dL (13.5-17.0); MEAN CORPUSCULAR HEMOGLOBIN 31.8 pg (27.0-33.4); MEAN CORPUSCULAR HGB CONC 34.5 g/dL (32.0-36.0); MEAN CORPUSCULAR VOLUME 92 fl (80-97); PLATELET COUNT 368 10^3/uL (150-450); RED BLOOD COUNT 2.87 10^6/uL (4.35-5.55)
[2019-09-27 05:36] LABS: BLOOD UREA NITROGEN 5 mg/dL (7-20); CARBON DIOXIDE 32 mmol/L (22-30); CHLORIDE 100 mmol/L (98-107); GLUCOSE 98 mg/dL (75-110)
[2019-09-27 05:39] LABS: POTASSIUM 2.8 mmol/L (3.6-5.0)
[2019-09-27 05:52] LABS: ANION GAP 4 (5-19)
[2019-09-27] MEDS: HEPARIN SOD (PORCINE) 5,000 UNIT/ML 1 ML VIAL SUBCUT SCH ×3 (06:54→21:27)
[2019-09-27] MEDS: POTASSIUM CHLORIDE 20 MEQ/50 ML RTU IV SCH ×2 (06:54→07:51)
[2019-09-27] MEDS: INSULIN LISPRO 100 UNIT/ML 3 ML VIAL SUBCUT SCH ×4 (07:44→21:40)
[2019-09-27] MEDS: POTASSIUM CHLORIDE 10 MEQ TABLET.ER PO SCH ×3 (07:50→17:53)
[2019-09-27] MEDS: ACETAMINOPHEN 325 MG TABLET PO PRN ×2 (08:26→23:44)
[2019-09-27] MEDS: LISINOPRIL 5 MG TABLET PO SCH (10:17)
[2019-09-27] MEDS: CARVEDILOL 6.25 MG TABLET PO SCH ×2 (10:17→21:20)
[2019-09-27] MEDS: PAROXETINE HCL 20 MG TABLET PO SCH (10:17)
[2019-09-27] MEDS: FERROUS SULFATE 325 MG TABLET PO SCH (10:17)
[2019-09-27] MEDS: INSULIN GLARGINE,HUM.REC.ANLOG 1,000 UNIT/10 ML VIAL SUBCUT SCH ×2 (10:18→21:39)
[2019-09-27] MEDS: VANCOMYCIN HCL 750 MG in DEXTROSE 5%-WATER 250 ML IV SCH ×2 (10:18→21:27)
[2019-09-27] MEDS: NORMAL SALINE 1000 ML 1,000 ML IV PRN (15:48)
--- NOTE | 2019-09-27 17:49 | PDOC PROGRESS REPORT ---
Subjective Progress Note for:: 09/27/19 Subjective:: Patient states he generally does not feel well today Reason For Visit: CELLULITIS,HYPERGLYCEMIA Physical Exam Vital Signs: Temp Pulse Resp BP Pulse Ox 98.5 F 82 20 172/95 H 98 09/27/19 11:35 09/27/19 11:35 09/27/19 11:35 09/27/19 11:35 09/27/19 11:35 Intake & Output 09/26/19 09/27/19 09/28/19 06:59 06:59 06:59 Intake Total 2049 4036 899 Balance 2049 4036 899 Weight 48.1 kg 50 kg General appearance: PRESENT: no acute distress, cooperative, thin Head exam: PRESENT: atraumatic, normocephalic Eye exam: PRESENT: conjunctiva pink Mouth exam: PRESENT: moist, tongue midline Neck exam: ABSENT: JVD Respiratory exam: PRESENT: clear to auscultation baldemar, symmetrical, unlabored. ABSENT: accessory muscle use Cardiovascular exam: PRESENT: RRR, +S1, +S2 Pulses: PRESENT: normal radial pulses Vascular exam: PRESENT: normal capillary refill GI/Abdominal exam: PRESENT: normal bowel sounds, soft. ABSENT: distended, tenderness Rectal exam: PRESENT: deferred Extremities exam: ABSENT: calf tenderness, pedal edema Musculoskeletal exam: PRESENT: ambulatory Neurological exam: PRESENT: alert, awake, oriented to person, oriented to place, oriented to time, oriented to situation, CN II-XII grossly intact Psychiatric exam: PRESENT: normal mood, unusual affect. ABSENT: agitated, anxious Skin exam: PRESENT: dry, normal color, warm, other - Scabbed and erythemic area noted on left forearm and left upper arm without exudate Results Laboratory Results: 09/27/19 05:02 09/27/19 05:02 09/27/19 09/27/19 05:02 05:02 WBC 16.0 H RBC 2.87 L Hgb 9.1 L Hct 26.4 L MCV 92 MCH 31.8 MCHC 34.5 RDW 14.0 Plt Count 368 Sodium 135.9 L Potassium 2.8 L* Chloride 100 Carbon Dioxide 32 H Anion Gap 4 L BUN 5 L Creatinine 0.59 Est GFR ( Amer) > 60 Glucose 98 Calcium 8.0 L Assessment and Plan - Diagnosis (1) Cellulitis of arm, left Is this a current diagnosis for this admission?: Yes Plan: No obvious abscess noted Continue vancomycin 750 mg IV every 12 hours per pharmacy protocol Blood cultures from 09/25/2019 NG at 24 hours (2) Leucocytosis Is this a current diagnosis for this admission?: Yes Plan: WBC slightly more elevated today Patient with low-grade fever Continue current antibiotics as noted above (3) Type 1 diabetes mellitus Is this a current diagnosis for this admission?: Yes Plan: Patient has required SSI coverage on most glucose checks Increase basal (glargine) insulin to 12 units subcutaneous every 12 hours Continue FS BS with SSI correction scale Titrate insulin further as needed (4) Hyperglycemia due to type 1 diabetes mellitus Is this a current diagnosis for this admission?: Yes Plan: Hyperglycemia likely related to noncompliance as well as infection Continue to monitor closely and titrate basal insulin as needed (5) Anemia Is this a current diagnosis for this admission?: Yes Plan: Patient was discharged earlier this month with an hemoglobin of 8.9. On presentation his hemoglobin was 10.0 however this likely represented some dehydration. He is currently 9.1 Guaiac stool, none recorded since ordered Patient is had iron studies in the past (07/28) which revealed slightly low iron and transferrin with low normal TIBC and normal ferritin Continue FeSO4 325 mg p.o. daily Monitor blood count (6) Hyponatremia Is this a current diagnosis for this admission?: Yes Plan: Asymptomatic Continues to improve No treatment indicated at this time Monitor (7) Hypokalemia Is this a current diagnosis for this admission?: Yes Plan: Continue KCl 20 equivalents p.o. 3 times daily with meals Check potassium now (8) Moderate protein-calorie malnutrition Is this a current diagnosis for this admission?: Yes Plan: Likely related to patient's illicit drug abuse and overall poor compliance and self care Request nutrition consult - Time Time Spent with patient: 15-24 minutes Medications reviewed and adjusted accordingly: Yes Anticipated Discharge Disposition: Home, Self Care Anticipated Discharge Timeframe: TBD
[2019-09-27] MEDS ORDERED: CARVEDILOL 12.5 MG TABLET PO ONE (22:00)
[2019-09-27 22:39] LABS: VANCOMYCIN,TROUGH 18.3 ug/mL (5.0-20.0)
[2019-09-28] MEDS: HYDRALAZINE HCL INJ/PF 20 MG/1 ML SDV IV PRN (00:20)
[2019-09-28] MEDS: ACETAMINOPHEN 325 MG TABLET PO PRN (05:28)
[2019-09-28] MEDS: NORMAL SALINE 1000 ML 1,000 ML IV PRN ×2 (05:29→18:54)
[2019-09-28] MEDS: HEPARIN SOD (PORCINE) 5,000 UNIT/ML 1 ML VIAL SUBCUT SCH ×3 (05:30→22:20)
[2019-09-28 05:31] LABS: MEAN CORPUSCULAR HEMOGLOBIN 31.4 pg (27.0-33.4); MEAN CORPUSCULAR HGB CONC 34.2 g/dL (32.0-36.0); MEAN CORPUSCULAR VOLUME 92 fl (80-97); PLATELET COUNT 313 10^3/uL (150-450); RED CELL DISTRIBUTION WIDTH 14.1 % (11.5-14.0); WHITE BLOOD COUNT 13.9 10^3/uL (4.0-10.5)
[2019-09-28 05:53] LABS: HEMOGLOBIN 7.9 g/dL (13.5-17.0)
[2019-09-28 05:55] LABS: BLOOD UREA NITROGEN 5 mg/dL (7-20); CALCIUM 7.7 mg/dL (8.4-10.2); CARBON DIOXIDE 30 mmol/L (22-30); CHLORIDE 100 mmol/L (98-107); GLUCOSE 178 mg/dL (75-110); POTASSIUM 3.7 mmol/L (3.6-5.0)
[2019-09-28 06:01] LABS: ANION GAP 2 (5-19)
[2019-09-28] MEDS: CARVEDILOL 6.25 MG TABLET PO SCH ×2 (09:03→22:20)
[2019-09-28] MEDS: VANCOMYCIN HCL 750 MG in DEXTROSE 5%-WATER 250 ML IV SCH ×2 (09:03→22:19)
[2019-09-28] MEDS: POTASSIUM CHLORIDE 10 MEQ TABLET.ER PO SCH ×3 (09:04→18:51)
[2019-09-28] MEDS: LISINOPRIL 5 MG TABLET PO SCH (09:04)
[2019-09-28] MEDS: PAROXETINE HCL 20 MG TABLET PO SCH (09:04)
[2019-09-28] MEDS: INSULIN LISPRO 100 UNIT/ML 3 ML VIAL SUBCUT SCH ×4 (09:04→22:20)
[2019-09-28] MEDS: FERROUS SULFATE 325 MG TABLET PO SCH (09:04)
[2019-09-28] MEDS: INSULIN GLARGINE,HUM.REC.ANLOG 1,000 UNIT/10 ML VIAL SUBCUT SCH ×2 (09:40→22:19)
--- NOTE | 2019-09-28 14:06 | PDOC PROGRESS REPORT ---
Subjective Progress Note for:: 09/28/19 Subjective:: Patient offers no complaints today. Resting quietly in bed Reason For Visit: CELLULITIS,HYPERGLYCEMIA Physical Exam Vital Signs: Temp Pulse Resp BP Pulse Ox 98.0 F 81 16 129/70 H 98 09/28/19 09:17 09/28/19 08:06 09/28/19 08:06 09/28/19 08:06 09/28/19 08:06 Intake & Output 09/27/19 09/28/19 09/29/19 06:59 06:59 06:59 Intake Total 4036 2909 237 Balance 4036 2909 237 Weight 50 kg 50 kg General appearance: PRESENT: no acute distress, disheveled, thin Head exam: PRESENT: atraumatic, normocephalic Eye exam: PRESENT: conjunctiva pink. ABSENT: scleral icterus Mouth exam: PRESENT: moist, tongue midline Neck exam: ABSENT: JVD Respiratory exam: PRESENT: clear to auscultation baldemar, symmetrical, unlabored. ABSENT: accessory muscle use Cardiovascular exam: PRESENT: RRR, +S1, +S2 Vascular exam: PRESENT: normal capillary refill GI/Abdominal exam: PRESENT: normal bowel sounds, soft. ABSENT: distended, tenderness Rectal exam: PRESENT: deferred Extremities exam: ABSENT: calf tenderness Musculoskeletal exam: PRESENT: ambulatory Neurological exam: PRESENT: alert, awake, oriented to person, oriented to place, oriented to time, oriented to situation, CN II-XII grossly intact Psychiatric exam: PRESENT: normal mood, unusual affect. ABSENT: agitated, anxious Skin exam: PRESENT: dry, normal color, warm, other - Lesion just proximal to left ACF improved. Erythema decreased. Lesion on left upper arm slightly erythemic with very minimal drainage Results Laboratory Results: 09/28/19 05:12 09/28/19 05:12 09/27/19 09/28/19 09/28/19 18:28 05:12 05:12 WBC 13.9 H RBC 2.50 L Hgb 7.9 L Hct 23.0 L MCV 92 MCH 31.4 MCHC 34.2 RDW 14.1 H Plt Count 313 Sodium 132.4 L Potassium 3.7 3.7 Chloride 100 Carbon Dioxide 30 Anion Gap 2 L BUN 5 L Creatinine 0.59 Est GFR ( Amer) > 60 Glucose 178 H Calcium 7.7 L Assessment and Plan - Diagnosis (1) Cellulitis of arm, left Is this a current diagnosis for this admission?: Yes Plan: No obvious abscess noted Continue vancomycin 750 mg IV every 12 hours per pharmacy protocol Blood cultures from 09/25/2019 NG at 48 hours (2) Leucocytosis Is this a current diagnosis for this admission?: Yes Plan: WBC improving Afebrile since last evening Continue current antibiotics as noted above (3) Type 1 diabetes mellitus Is this a current diagnosis for this admission?: Yes Plan: Patient has required SSI coverage on most glucose checks Increase basal (glargine) insulin to 13 units subcutaneous every 12 hours Continue FS BS with SSI correction scale Titrate insulin further as needed with extreme caution, patient is extremely insulin sensitive (4) Hyperglycemia due to type 1 diabetes mellitus Is this a current diagnosis for this admission?: Yes Plan: Hyperglycemia likely related to infection Continue to monitor closely and titrate basal insulin as needed (5) Anemia Is this a current diagnosis for this admission?: Yes Plan: Patient was discharged earlier this month with an hemoglobin of 8.9. On pr esentation his hemoglobin was 10.0 however this likely represented some dehydration. He is now down to 7.9 Guaiac stool, none recorded since ordered - nursing staff reminded to make sure if patient has BM it needs to be checked Patient has had iron studies in the past (07/28) which revealed slightly low iron and transferrin with low normal TIBC and normal ferritin Continue FeSO4 325 mg p.o. daily Check CBC in a.m. If H/H drops further will request consult for endoscopy (6) Hyponatremia Is this a current diagnosis for this admission?: Yes Plan: Asymptomatic Corrected sodium 134 today Continue current IVF (NS) Monitor (7) Hypokalemia Is this a current diagnosis for this admission?: Yes Plan: Continue KCl 20 mEq p.o. 3 times daily with meals Recheck BMP in a.m. (8) Moderate protein-calorie malnutrition Is this a current diagnosis for this admission?: Yes Plan: Likely related to patient's illicit drug abuse and overall poor compliance and self care Awaiting nutrition consult - Time Time Spent with patient: 15-24 minutes Medications reviewed and adjusted accordingly: Yes Anticipated Discharge Disposition: Home, Self Care Anticipated Discharge Timeframe: TBD
[2019-09-29] MEDS: HYDRALAZINE HCL INJ/PF 20 MG/1 ML SDV IV PRN (00:25)
[2019-09-29] MEDS: HEPARIN SOD (PORCINE) 5,000 UNIT/ML 1 ML VIAL SUBCUT SCH ×3 (05:35→21:47)
[2019-09-29 06:35] LABS: ABSOLUTE BASOPHILS # (AUTO) 0.1 10^3/uL (0.0-0.2); ABSOLUTE EOSINOPHILS # (AUTO) 0.1 10^3/uL (0.0-0.6); ABSOLUTE LYMPHOCYTES (AUTO) 1.1 10^3/uL (0.5-4.7); ABSOLUTE MONOCYTES (AUTO) 1.1 10^3/uL (0.1-1.4); BASOPHILS % (AUTO) 0.6 % (0-2); EOSINOPHILS % (AUTO) 0.5 % (0-6); HEMATOCRIT 24.8 % (37.9-51.0); HEMOGLOBIN 8.3 g/dL (13.5-17.0); LYMPHOCYTES % (AUTO) 8.4 % (13-45); MEAN CORPUSCULAR HEMOGLOBIN 31.2 pg (27.0-33.4); MEAN CORPUSCULAR HGB CONC 33.4 g/dL (32.0-36.0); MEAN CORPUSCULAR VOLUME 93 fl (80-97); MONOCYTES % (AUTO) 8.4 % (3-13); PLATELET COUNT 354 10^3/uL (150-450); RED BLOOD COUNT 2.65 10^6/uL (4.35-5.55); RED CELL DISTRIBUTION WIDTH 14.7 % (11.5-14.0); SEGMENTED NEUTROPHILS % (AUTO) 82.1 % (42-78); TOTAL CELLS COUNTED % (AUTO) 100 %; WHITE BLOOD COUNT 13.4 10^3/uL (4.0-10.5)
--- NOTE | 2019-09-29 06:55 | PDOC PROGRESS REPORT ---
Subjective Progress Note for:: 09/29/19 Subjective:: Patient sleeping upon entering room for exam. Minimally interactive. No complaints. Reason For Visit: CELLULITIS,HYPERGLYCEMIA Physical Exam Vital Signs: Temp Pulse Resp BP Pulse Ox 98.8 F 103 H 18 147/74 H 94 09/29/19 03:13 09/29/19 03:13 09/29/19 03:13 09/29/19 03:13 09/29/19 03:13 Intake & Output 09/27/19 09/28/19 09/29/19 06:59 06:59 06:59 Intake Total 4036 2909 2557 Balance 4036 2909 2557 Weight 50 kg 50 kg 50 kg General appearance: PRESENT: no acute distress, cooperative, thin Head exam: PRESENT: atraumatic, normocephalic Eye exam: PRESENT: conjunctiva pink. ABSENT: scleral icterus Mouth exam: PRESENT: moist, tongue midline Neck exam: ABSENT: JVD Respiratory exam: PRESENT: clear to auscultation baldemar, symmetrical, unlabored. ABSENT: accessory muscle use Cardiovascular exam: PRESENT: RRR, +S1, +S2, tachycardia Pulses: PRESENT: normal radial pulses, +1 pedal pulses bilateral Vascular exam: PRESENT: normal capillary refill GI/Abdominal exam: PRESENT: normal bowel sounds, soft. ABSENT: distended, tenderness Rectal exam: PRESENT: deferred Extremities exam: ABSENT: calf tenderness Musculoskeletal exam: PRESENT: ambulatory Neurological exam: PRESENT: alert, awake, oriented to person, oriented to place, oriented to time, oriented to situation, CN II-XII grossly intact Psychiatric exam: PRESENT: unusual affect. ABSENT: agitated, anxious Skin exam: PRESENT: dry, normal color, warm Results Laboratory Results: 09/29/19 05:43 09/29/19 05:43 WBC 13.4 H RBC 2.65 L Hgb 8.3 L Hct 24.8 L MCV 93 MCH 31.2 MCHC 33.4 RDW 14.7 H Plt Count 354 Seg Neutrophils % 82.1 H Assessment and Plan - Diagnosis (1) Cellulitis of arm, left Is this a current diagnosis for this admission?: Yes Plan: No obvious abscess noted Continue vancomycin per pharmacy protocol Blood cultures from 09/25/2019 NG at 72 hours Given patient's history of noncompliance I will be conservative in transitioning to p.o. antibiotics and discharging patient (2) Leucocytosis Is this a current diagnosis for this admission?: Yes Plan: Minimal improvement this a.m. and WBC Afebrile and nontoxic in appearance Continue current antibiotics as noted above (3) Type 1 diabetes mellitus Is this a current diagnosis for this admission?: Yes Plan: Patient is consistently requiring SSI coverage Continue basal (glargine) insulin to 13 units subcutaneous every 12 hours, lisa ent is only received the increased dose from 09/28/2019 on one occasion Continue FS BS with SSI correction scale Titrate insulin further as needed with extreme caution, patient is extremely insulin sensitive (4) Hyperglycemia due to type 1 diabetes mellitus Is this a current diagnosis for this admission?: Yes Plan: Hyperglycemia likely related to infection Continue to monitor closely and titrate basal insulin as needed (5) Anemia Is this a current diagnosis for this admission?: Yes Plan: Patient was discharged earlier this month with an hemoglobin of 8.9. On presentation his hemoglobin was 10.0 however this likely represented some dehydration. He is back up slightly to 8.3 today Guaiac stool, none recorded since ordered - nursing staff reminded to make sure if patient has BM it needs to be checked Patient has had iron studies in the past (07/28) which revealed slightly low iron and transferrin with low normal TIBC and normal ferritin Continue FeSO4 325 mg p.o. daily If H/H drops further will request consult for endoscopy (6) Hyponatremia Is this a current diagnosis for this admission?: Yes Plan: Asymptomatic BMP pending this a.m. Continue current IVF (NS) Monitor (7) Hypokalemia Is this a current diagnosis for this admission?: Yes Plan: BM pending this a.m. Continue KCl 20 mEq p.o. 3 times daily with meals for now, if serum potassium WNL on this morning's labs will DC scheduled KCl Monitor (8) Moderate protein-calorie malnutrition Is this a current diagnosis for this admission?: Yes Plan: Likely related to patient's illicit drug abuse and overall poor compliance and self care Awaiting nutrition consult - Time Time Spent with patient: 15-24 minutes Medications reviewed and adjusted accordingly: Yes Anticipated Discharge Disposition: Home, Self Care Anticipated Discharge Timeframe: within 72 hours
[2019-09-29 06:56] LABS: ANION GAP 5 (5-19); BLOOD UREA NITROGEN 10 mg/dL (7-20); CARBON DIOXIDE 27 mmol/L (22-30); CHLORIDE 101 mmol/L (98-107); GLUCOSE 175 mg/dL (75-110); POTASSIUM 4.4 mmol/L (3.6-5.0)
[2019-09-29] MEDS: LISINOPRIL 5 MG TABLET PO SCH (10:52)
[2019-09-29] MEDS: PAROXETINE HCL 20 MG TABLET PO SCH (10:54)
[2019-09-29] MEDS: CARVEDILOL 6.25 MG TABLET PO SCH ×2 (10:54→21:19)
[2019-09-29] MEDS: FERROUS SULFATE 325 MG TABLET PO SCH (10:55)
[2019-09-29] MEDS: INSULIN LISPRO 100 UNIT/ML 3 ML VIAL SUBCUT SCH ×4 (11:04→21:17)
[2019-09-29] MEDS: INSULIN GLARGINE,HUM.REC.ANLOG 1,000 UNIT/10 ML VIAL SUBCUT SCH ×2 (11:06→21:16)
[2019-09-29] MEDS: NORMAL SALINE 1000 ML 1,000 ML IV PRN (13:52)
[2019-09-29] MEDS: VANCOMYCIN HCL 750 MG in DEXTROSE 5%-WATER 250 ML IV SCH ×2 (13:54→21:17)
[2019-09-29] MEDS: ACETAMINOPHEN 325 MG TABLET PO PRN (19:44)
[2019-09-30] MEDS: HEPARIN SOD (PORCINE) 5,000 UNIT/ML 1 ML VIAL SUBCUT SCH ×3 (05:36→21:18)
[2019-09-30 05:41] LABS: HEMATOCRIT 24.8 % (37.9-51.0); HEMOGLOBIN 8.3 g/dL (13.5-17.0); MEAN CORPUSCULAR HEMOGLOBIN 31.3 pg (27.0-33.4); MEAN CORPUSCULAR HGB CONC 33.5 g/dL (32.0-36.0); MEAN CORPUSCULAR VOLUME 93 fl (80-97); PLATELET COUNT 393 10^3/uL (150-450); RED BLOOD COUNT 2.66 10^6/uL (4.35-5.55); WHITE BLOOD COUNT 8.7 10^3/uL (4.0-10.5)
[2019-09-30 05:59] LABS: BLOOD UREA NITROGEN 10 mg/dL (7-20); CALCIUM 8.2 mg/dL (8.4-10.2); CHLORIDE 99 mmol/L (98-107); GLUCOSE 105 mg/dL (75-110); POTASSIUM 4.1 mmol/L (3.6-5.0)
[2019-09-30 06:09] LABS: ANION GAP 5 (5-19); CARBON DIOXIDE 30 mmol/L (22-30)
--- NOTE | 2019-09-30 06:47 | PDOC PROGRESS REPORT ---
Subjective Progress Note for:: 09/30/19 Subjective:: Patient in good spirits this a.m. He states that he feels well, but does note that he is having some pain with movement at the site of his abscesses on his LUE Reason For Visit: CELLULITIS,HYPERGLYCEMIA Physical Exam Vital Signs: Temp Pulse Resp BP Pulse Ox 97.6 F 71 17 158/86 H 94 09/29/19 23:29 09/30/19 02:00 09/29/19 23:29 09/29/19 23:29 09/29/19 23:29 Intake & Output 09/28/19 09/29/19 09/30/19 06:59 06:59 06:59 Intake Total 2909 3556 692 Balance 2909 3556 850 Weight 50 kg 50 kg 54.4 kg General appearance: PRESENT: no acute distress, disheveled, thin Head exam: PRESENT: atraumatic, normocephalic Eye exam: PRESENT: conjunctiva pink. ABSENT: scleral icterus Mouth exam: PRESENT: moist, tongue midline Neck exam: ABSENT: JVD Respiratory exam: PRESENT: clear to auscultation baldemar, symmetrical, unlabored. ABSENT: accessory muscle use Cardiovascular exam: PRESENT: RRR, +S1, +S2 Pulses: PRESENT: normal radial pulses, +1 pedal pulses bilateral GI/Abdominal exam: PRESENT: normal bowel sounds, soft. ABSENT: distended, tenderness Rectal exam: PRESENT: deferred Extremities exam: ABSENT: calf tenderness, pedal edema Musculoskeletal exam: PRESENT: ambulatory Neurological exam: PRESENT: alert, awake, oriented to person, oriented to place, oriented to time, oriented to situation, CN II-XII grossly intact Psychiatric exam: PRESENT: unusual affect. ABSENT: agitated, anxious Skin exam: PRESENT: dry, normal color, warm Results Laboratory Results: 09/30/19 04:32 09/30/19 04:32 09/29/19 09/30/19 09/30/19 05:43 04:32 04:32 WBC 8.7 RBC 2.66 L Hgb 8.3 L Hct 24.8 L MCV 93 MCH 31.3 MCHC 33.5 RDW 15.0 H Plt Count 393 Sodium 132.9 L 134.3 L Potassium 4.4 4.1 Chloride 101 99 Carbon Dioxide 27 30 Anion Gap 5 5 BUN 10 10 Creatinine 0.64 0.63 Est GFR ( Amer) > 60 > 60 Glucose 175 H 105 Calcium 8.0 L 8.2 L Magnesium 1.9 Assessment and Plan - Diagnosis (1) Cellulitis of arm, left Is this a current diagnosis for this admission?: Yes Plan: No obvious abscess noted Continue vancomycin per pharmacy protocol Blood cultures from 09/25/2019 NG at 4 days Given patient's history of noncompliance I will be conservative in transitioning to p.o. antibiotics and discharging patient (2) Leucocytosis Is this a current diagnosis for this admission?: Yes Plan: Leukocytosis resolved Afebrile and nontoxic in appearance Continue current antibiotics as noted above (3) Type 1 diabetes mellitus Is this a current diagnosis for this admission?: Yes Plan: Patient is consistently requiring SSI coverage Continue basal (glargine) insulin increase to 14 units subcutaneous every 12 hours Continue FS BS with SSI correction scale Titrate insulin further as needed with extreme caution, patient is extremely insulin sensitive (4) Hyperglycemia due to type 1 diabetes mellitus Is this a current diagnosis for this admission?: Yes Plan: Hyperglycemia likely related to infection Continue to monitor closely and titrate basal insulin as needed (5) Anemia Is this a current diagnosis for this admission?: Yes Plan: Patient was discharged earlier this month with an hemoglobin of 8.9. On presentation his hemoglobin was 10.0 however this likely represented some dehydration. H/H remained stable over past 24 hours Guaiac stool, none recorded since ordered - nursing staff reminded to make sure if patient has BM it needs to be checked Patient has had iron studies in the past (07/28) which revealed slightly low iron and transferrin with low normal TIBC and normal ferritin Continue FeSO4 325 mg p.o. daily If H/H drops further will request consult for endoscopy (6) Hyponatremia Is this a current diagnosis for this admission?: Yes Plan: Asymptomatic Serum sodium continues to improve Continue current IVF (NS) Monitor (7) Hypokalemia Is this a current diagnosis for this admission?: Yes Plan: Resolved Scheduled KCl stopped Monitor (8) Moderate protein-calorie malnutrition Is this a current diagnosis for this admission?: Yes Plan: Likely related to patient's illicit drug abuse and overall poor compliance and self care Awaiting nutrition consult - Time Time Spent with patient: 15-24 minutes Medications reviewed and adjusted accordingly: Yes Anticipated Discharge Disposition: Home, Self Care Anticipated Discharge Timeframe: within 48 hours
[2019-09-30] MEDS: INSULIN LISPRO 100 UNIT/ML 3 ML VIAL SUBCUT SCH ×4 (07:36→21:18)
[2019-09-30] MEDS: FERROUS SULFATE 325 MG TABLET PO SCH (09:58)
[2019-09-30] MEDS: LISINOPRIL 5 MG TABLET PO SCH (09:58)
[2019-09-30] MEDS: VANCOMYCIN HCL 750 MG in DEXTROSE 5%-WATER 250 ML IV SCH ×2 (09:59→21:17)
[2019-09-30] MEDS: CARVEDILOL 6.25 MG TABLET PO SCH ×2 (09:59→21:19)
[2019-09-30] MEDS: PAROXETINE HCL 20 MG TABLET PO SCH (09:59)
[2019-09-30] MEDS: INSULIN GLARGINE,HUM.REC.ANLOG 1,000 UNIT/10 ML VIAL SUBCUT SCH ×2 (09:59→21:18)
[2019-09-30] MEDS: HYDRALAZINE HCL INJ/PF 20 MG/1 ML SDV IV PRN (11:23)
[2019-09-30] MEDS: ACETAMINOPHEN 325 MG TABLET PO PRN (17:19)
[2019-09-30] MEDS: NORMAL SALINE 1000 ML 1,000 ML IV PRN (21:24)
[2019-10-01] MEDS: HEPARIN SOD (PORCINE) 5,000 UNIT/ML 1 ML VIAL SUBCUT SCH (05:34)
[2019-10-01 05:48] LABS: HEMATOCRIT 23.1 % (37.9-51.0); MEAN CORPUSCULAR HEMOGLOBIN 31.7 pg (27.0-33.4); MEAN CORPUSCULAR HGB CONC 34.6 g/dL (32.0-36.0); MEAN CORPUSCULAR VOLUME 92 fl (80-97); PLATELET COUNT 421 10^3/uL (150-450); RED BLOOD COUNT 2.52 10^6/uL (4.35-5.55); RED CELL DISTRIBUTION WIDTH 14.7 % (11.5-14.0); WHITE BLOOD COUNT 6.6 10^3/uL (4.0-10.5)
[2019-10-01 06:18] LABS: BLOOD UREA NITROGEN 12 mg/dL (7-20); CALCIUM 8.1 mg/dL (8.4-10.2); GLUCOSE 93 mg/dL (75-110); POTASSIUM 3.8 mmol/L (3.6-5.0)
[2019-10-01 06:24] LABS: ANION GAP 5 (5-19); CARBON DIOXIDE 30 mmol/L (22-30); CHLORIDE 100 mmol/L (98-107)
[2019-10-01] MEDS: NORMAL SALINE 1000 ML 1,000 ML IV PRN (06:44)
[2019-10-01] MEDS: INSULIN LISPRO 100 UNIT/ML 3 ML VIAL SUBCUT SCH ×4 (07:30→21:48)
[2019-10-01 10:26] LABS: VANCOMYCIN,TROUGH 15.8 ug/mL (5.0-20.0)
[2019-10-01] MEDS: PAROXETINE HCL 20 MG TABLET PO SCH (10:38)
[2019-10-01] MEDS: FERROUS SULFATE 325 MG TABLET PO SCH (10:39)
[2019-10-01] MEDS: VANCOMYCIN HCL 750 MG in DEXTROSE 5%-WATER 250 ML IV SCH ×2 (10:40→21:40)
[2019-10-01] MEDS: LISINOPRIL 5 MG TABLET PO SCH (10:40)
[2019-10-01] MEDS: CARVEDILOL 6.25 MG TABLET PO SCH ×2 (10:40→21:38)
[2019-10-01] MEDS ORDERED: GLUCAGON,HUMAN RECOMB 1 MG INJ SUBCUT PRN (11:20)
[2019-10-01] MEDS ORDERED: DEXTROSE 40% GEL 15 GM TUBE PO PRN ×2 (11:20)
--- NOTE | 2019-10-01 11:56 | PDOC PROGRESS REPORT ---
Subjective Progress Note for:: 10/01/19 Subjective:: Patient offers no complaints. He did have an episode of hypoglycemia this a.m. Reason For Visit: CELLULITIS,HYPERGLYCEMIA Physical Exam Vital Signs: Temp Pulse Resp BP Pulse Ox 97.5 F 71 28 H 213/100 H 94 10/01/19 07:38 10/01/19 07:38 10/01/19 07:38 10/01/19 07:38 10/01/19 07:38 Intake & Output 09/30/19 10/01/19 10/02/19 06:59 06:59 06:59 Intake Total 1850 2940 Balance 1850 2940 Weight 54.4 kg 55.7 kg General appearance: PRESENT: no acute distress, cooperative, disheveled, thin Head exam: PRESENT: atraumatic, normocephalic Eye exam: PRESENT: conjunctiva pink. ABSENT: scleral icterus Mouth exam: PRESENT: moist, tongue midline Neck exam: ABSENT: JVD Respiratory exam: PRESENT: clear to auscultation baldemar, symmetrical, unlabored. ABSENT: accessory muscle use Cardiovascular exam: PRESENT: RRR, +S1, +S2 Pulses: PRESENT: normal carotid pulses, normal radial pulses, +1 pedal pulses bilateral GI/Abdominal exam: PRESENT: normal bowel sounds, soft. ABSENT: distended, tenderness Rectal exam: PRESENT: deferred. ABSENT: heme (-) stool Extremities exam: ABSENT: calf tenderness, pedal edema Musculoskeletal exam: PRESENT: ambulatory Neurological exam: PRESENT: alert, awake, oriented to person, oriented to place, oriented to time, oriented to situation, CN II-XII grossly intact Psychiatric exam: PRESENT: normal mood, unusual affect. ABSENT: agitated, anxious Skin exam: PRESENT: dry, normal color, warm Results Laboratory Results: 10/01/19 04:23 10/01/19 04:23 10/01/19 10/01/19 04:23 04:23 WBC 6.6 RBC 2.52 L Hgb 8.0 L Hct 23.1 L MCV 92 MCH 31.7 MCHC 34.6 RDW 14.7 H Plt Count 421 Sodium 135.1 L Potassium 3.8 Chloride 100 Carbon Dioxide 30 Anion Gap 5 BUN 12 Creatinine 0.61 Est GFR ( Amer) > 60 Glucose 93 Calcium 8.1 L 09/25/19 21:54 Blood Blood Culture - Final NO GROWTH IN 5 DAYS 09/25/19 21:10 Blood Blood Culture - Final NO GROWTH IN 5 DAYS Assessment and Plan - Diagnosis (1) Cellulitis of arm, left Is this a current diagnosis for this admission?: Yes Plan: Today patient has area of firm induration between left antecubital fossa and a pproximately 2 inches above Continue vancomycin per pharmacy protocol Blood cultures from 09/25/2019 NG at 5 days Surgery consult to evaluate for possible I&D (2) Leucocytosis Is this a current diagnosis for this admission?: Yes Plan: Leukocytosis resolved Afebrile Continue current antibiotics as noted above (3) Type 1 diabetes mellitus Is this a current diagnosis for this admission?: Yes Plan: Patient had a hypoglycemic episode this a.m. Continue basal (glargine) insulin but decrease to increase to 13 units subcutaneous every 12 hours Continue FS BS with SSI correction scale Titrate insulin further as needed with extreme caution, patient is extremely insulin sensitive (4) Hyperglycemia due to type 1 diabetes mellitus Is this a current diagnosis for this admission?: Yes Plan: Hyperglycemia likely related to infection Continue to monitor closely and titrate basal insulin as needed (5) Anemia Is this a current diagnosis for this admission?: Yes Plan: Patient was discharged earlier this month with an hemoglobin of 8.9. On presentation his hemoglobin was 10.0 however this likely represented some dehydration. H/H trending back down Stool guaiac positive Patient has had iron studies in the past (07/28) which revealed slightly low iron and transferrin with low normal TIBC and normal ferritin Continue FeSO4 325 mg p.o. daily Surgery consulted for evaluation for I&D of possible LUE abscess. I also discussed colonoscopy with them and they will evaluate the patient for colonoscopy after they have treated his abscess (6) Hyponatremia Is this a current diagnosis for this admission?: Yes Plan: Asymptomatic Serum sodium continues to improve Continue current IVF (NS) Monitor (7) Hypokalemia Is this a current diagnosis for this admission?: Yes Plan: Resolved Scheduled KCl stopped Monitor (8) Moderate protein-calorie malnutrition Is this a current diagnosis for this admission?: Yes Plan: Likely related to patient's illicit drug abuse and overall poor compliance and self care Awaiting nutrition consult - Time Time Spent with patient: 15-24 minutes Medications reviewed and adjusted accordingly: Yes Anticipated Discharge Disposition: Transitions program Anticipated Discharge Timeframe: TBD
[2019-10-01] MEDS: INSULIN GLARGINE,HUM.REC.ANLOG 1,000 UNIT/10 ML VIAL SUBCUT SCH ×2 (12:06→21:39)
--- NOTE | 2019-10-01 12:08 | Progress Note ---
Provider Note Provider Note: Called by RN to report the patient's BP is elevated. Increase lisinopril to 20 mg p.o. daily and give already ordered as needed hydralazine
--- NOTE | 2019-10-01 12:17 | PDOC CONSULTATION ---
Consultation Consult Date: 10/01/19 Provider Consulted: RYAN ERICKSON Consult reason:: Left hand fluid collection History of Present Illness Admission Date/PCP: 09/25/19 22:57 ALFONSO OVALLE PA-C History of Present Illness: AMPARO PHAN is a 53 year old male discharged 2 weeks ago from this hospital and admitted last Wednesday who presents a left dorsal arm fluid collection tender as per subcutaneous abscess. The patient is a mild anemia with hemoglobin hematocrit of 8 and 23, respectively which will require eventually to be addressed by colonoscopy. Past Medical History Cardiac Medical History: Reports: Congestive Heart Failure - Diastolic, Hype rtension Pulmonary Medical History: Denies: Asthma, Chronic Obstructive Pulmonary Disease (COPD) Neurological Medical History: Denies: Seizures Endocrine Medical History: Reports: Diabetes Mellitus Type 1 Denies: Diabetes Mellitus Type 2, Hyperthyroidism, Hypothyroidism GI Medical History: Denies: Cirrhosis, Hepatitis Musculoskeltal Medical History: Denies: Arthritis, Gout Skin Medical History: Denies: Eczema, Psoriasis Psychiatric Medical History: Denies: Depression Hematology: Denies: Anemia, Bleeding Tendencies Past Surgical History Past Surgical History: Reports: Other - Removal of part of a lung as a child due to abscess. Social History Smoking Status: Current Every Day Smoker Electronic Cigarette use?: No Frequency of Alcohol Use: Heavy Hx Recreational Drug Use: Yes Drugs: Cocaine, Heroin Hx Prescription Drug Abuse: Yes Family History Family History: DM, Hypertension. denies: CAD, Malignancy Parental Family History Reviewed: Yes - Diabetes Children Family History Reviewed: No Sibling(s) Family History Reviewed.: No Medication/Allergy Home Medications: Carvedilol [Coreg 6.25 mg Tablet] 6.25 mg PO Q12 #60 tablet 08/09/19 Insulin Lispro [Humalog Kwikpen U-100] 1 - 12 unit SQ ACHS PRN #1 insuln.pen 08/19/19 Famotidine [Pepcid 20 mg Tablet] 20 mg PO DAILY 09/13/19 Paroxetine HCl [Paxil] 10 mg PO DAILY 09/13/19 Insulin Glargine,Hum.rec.anlog [Lantus Insulin 100 Unit/1 ml 10 ml] 11 unit SUBCUT Q12 30 Days #2 vial 09/19/19 Lisinopril [Prinivil 5 mg Tablet] 10 mg PO DAILY 30 Days #30 tablet 08/11/20 Insulin Lispro [Humalog Kwikpen] 15 unit SQ AC 09/26/19 Allergies/Adverse Reactions: No Known Allergies Allergy (Verified 06/08/17 20:19) Physical Exam Vital Signs: Temp Pulse Resp BP Pulse Ox 97.5 F 71 28 H 213/100 H 94 10/01/19 07:38 10/01/19 07:38 10/01/19 07:38 10/01/19 07:38 10/01/19 07:38 Intake & Output 09/30/19 10/01/19 10/02/19 06:59 06:59 06:59 Intake Total 1850 2940 Balance 1850 2940 Weight 54.4 kg 55.7 kg Results Laboratory Results: 10/01/19 04:23 10/01/19 04:23 10/01/19 10/01/19 04:23 04:23 WBC 6.6 RBC 2.52 L Hgb 8.0 L Hct 23.1 L MCV 92 MCH 31.7 MCHC 34.6 RDW 14.7 H Plt Count 421 Sodium 135.1 L Potassium 3.8 Chloride 100 Carbon Dioxide 30 Anion Gap 5 BUN 12 Creatinine 0.61 Est GFR ( Amer) > 60 Glucose 93 Calcium 8.1 L 09/25/19 21:54 Blood Blood Culture - Final NO GROWTH IN 5 DAYS 09/25/19 21:10 Blood Blood Culture - Final NO GROWTH IN 5 DAYS Assessment & Plan - Plan Summary Plan Summary: Assessment: Left arm tender fluid collection aspirated subcutaneous abscess Type 1 diabetes Hypertension Iron deficiency anemia (8.3 and 23 H&H respectively) Plan: Incision and drainage of left arm subcutaneous abscess today Procedure, risks, benefits, complications, explained to the patient, she understands all the above and he desires to proceed COVID-19 test pending We will start IV antibiotics preoperatively
[2019-10-01] MEDS: HYDRALAZINE HCL INJ/PF 20 MG/1 ML SDV IV PRN (12:50)
[2019-10-01] MEDS ORDERED: PROPOFOL INJ 200 MG/20 ML VIAL IV ONE ×2 (14:29→14:31)
[2019-10-01] MEDS ORDERED: KETAMINE HCL INJ 500 MG/10 ML VIAL ONE (14:31)
[2019-10-01] MEDS ORDERED: FENTANYL CITRATE INJ/PF 100 MCG/2 ML AMPUL ONE (14:31)
[2019-10-01] MEDS ORDERED: LIDOCAINE 2% INJ-PF (100 MG/5 ML) SYRINGE ONE (14:31)
[2019-10-01] MEDS ORDERED: MIDAZOLAM 2 MG/2 ML INJ ONE (14:31)
[2019-10-01] MEDS ORDERED: ONDANSETRON HCL INJ/PF 4 MG/2 ML SDV ONE (14:31)
[2019-10-01] MEDS ORDERED: BUPIVACAINE HCL 0.5 % INJ/PF 30 ML SDV ONE (15:13)
[2019-10-01] MEDS ORDERED: OXYCODONE-ACETAMINOPHEN 5-325 MG TABLET PO PRN ×2 (15:14)
[2019-10-01] MEDS ORDERED: DIPHENHYDRAMINE HCL 50 MG/ML VIAL IV PRN (15:14)
[2019-10-01] MEDS ORDERED: FENTANYL CITRATE INJ/PF 100 MCG/2 ML AMPUL IV PRN ×3 (15:14)
[2019-10-01] MEDS ORDERED: PROMETHAZINE HCL INJ 25 MG/1 ML VIAL IV PRN ×2 (15:14)
[2019-10-01] MEDS ORDERED: MORPHINE SULFATE 10 MG/ML INJ IV PRN ×2 (15:14→15:57)
--- NOTE | 2019-10-01 15:50 | Operative Report ---
Operative Report DATE OF SURGERY: 10/01/19 PREOPERATIVE DIAGNOSIS: Left arm subcutaneous abscess POSTOPERATIVE DIAGNOSIS: Left intramuscular biceps abscess OPERATION: Incision drainage left biceps abscess SURGEON: RYAN ERICKSON ANESTHESIA: GA - 20 mils of half percent Marcaine without epinephrine TISSUE REMOVED OR ALTERED: Incision and drainage of left biceps muscle abscess COMPLICATIONS: None ESTIMATED BLOOD LOSS: Less than 10 mL INTRAOPERATIVE FINDINGS: Large intramuscular biceps abscess PROCEDURE: The procedure was done in the operating room, the patient was placed in a supine position, general esthesia induced by endotracheal intubation, the left upper extremity as well as the area of the abscess stated in the dorsal aspect of the arm was prepped and draped in usual fashion. The proposed line of incision was outlined with a surgical marker, a longitudinal skin incision was then made with a #15 blade, about 2-1/2 inches. No fluid collection was obtained. However, a syringe with an 18-gauge needle was inserted into the biceps muscle and a moderate amount of pus was obtained approximately 10 mL's). This was sent for aerobic anaerobic culture and Gram stain. The incision through the biceps muscle was then extended further. After this, a finger was inserted inside the muscle belly and the abscess cavity was explored. Following this, the abscess cavity was irrigated with 3 L of normal saline using jet lavage. Local bleeders were cauterized. 2 counterincision was made faraway from the initial incision both superiorly and inferiorly, a 1/4 inch [place] drain was threaded through both the counterincisions and the main incision and tied to itself with a 2-0 silk suture. The abscess cavity was packed with quarter inch packing strip, covered with dry 4 x 4's, ABDs, Kerlix roll and Krzysztof bandage. The patient tolerated procedure well, was extubated, and was transferred to the recovery room in satisfactory conditions.
[2019-10-01] MEDS: FENTANYL CITRATE INJ/PF 100 MCG/2 ML AMPUL ONE ×3 (15:55→16:10)
[2019-10-01] MEDS: ACETAMINOPHEN 325 MG TABLET PO PRN (21:37)
[2019-10-02] MEDS: NORMAL SALINE 1000 ML 1,000 ML IV PRN ×2 (01:24→09:32)
--- NOTE | 2019-10-02 05:58 | PDOC PROGRESS REPORT ---
Subjective Progress Note for:: 10/02/19 Subjective:: Patient states that his left arm feels better since surgery. Decreased discomfort. Reason For Visit: CELLULITIS,HYPERGLYCEMIA Physical Exam Vital Signs: Temp Pulse Resp BP Pulse Ox 97.5 F 79 18 148/80 H 94 10/02/19 05:08 10/02/19 05:08 10/02/19 05:08 10/02/19 05:08 10/02/19 05:08 Intake & Output 09/30/19 10/01/19 10/02/19 06:59 06:59 06:59 Intake Total 1850 2940 3560 Output Total 50 Balance 1850 2940 3510 Weight 54.4 kg 55.7 kg 59.8 kg General appearance: PRESENT: no acute distress, cooperative, disheveled, thin Head exam: PRESENT: atraumatic, normocephalic Eye exam: PRESENT: conjunctiva pink. ABSENT: scleral icterus Mouth exam: PRESENT: moist, tongue midline Neck exam: ABSENT: JVD Respiratory exam: PRESENT: clear to auscultation baldemar, symmetrical, unlabored. ABSENT: accessory muscle use Cardiovascular exam: PRESENT: RRR, +S1, +S2 Pulses: PRESENT: normal carotid pulses, normal radial pulses, +1 pedal pulses bilateral Vascular exam: PRESENT: normal capillary refill GI/Abdominal exam: PRESENT: normal bowel sounds, soft. ABSENT: distended, tenderness Rectal exam: PRESENT: deferred Extremities exam: ABSENT: calf tenderness, pedal edema Musculoskeletal exam: PRESENT: ambulatory Neurological exam: PRESENT: alert, awake, oriented to person, oriented to place, oriented to time, oriented to situation, CN II-XII grossly intact Psychiatric exam: PRESENT: normal mood, unusual affect. ABSENT: agitated, anxious Skin exam: PRESENT: dry, normal color, warm, other - LUE with intact dressing/Krzysztof wrap Results Laboratory Results: 10/01/19 10/01/19 04:23 04:23 WBC 6.6 RBC 2.52 L Hgb 8.0 L Hct 23.1 L MCV 92 MCH 31.7 MCHC 34.6 RDW 14.7 H Plt Count 421 Sodium 135.1 L Potassium 3.8 Chloride 100 Carbon Dioxide 30 Anion Gap 5 BUN 12 Creatinine 0.61 Est GFR ( Amer) > 60 Glucose 93 Calcium 8.1 L Assessment and Plan - Diagnosis (1) Cellulitis of arm, left Is this a current diagnosis for this admission?: Yes Plan: Surgery assistance appreciated S/P I&D of left biceps abscess on 10/01/2019 Continue vancomycin per pharmacy protocol Blood cultures from 09/25/2019 NG at 5 days Surgical/abscess culture 07/01/2019: Pending (2) Leucocytosis Is this a current diagnosis for this admission?: Yes Plan: Leukocytosis resolved, a.m. labs pending Afebrile Continue current antibiotics as noted above (3) Type 1 diabetes mellitus Is this a current diagnosis for this admission?: Yes Plan: No further hypoglycemic episodes since 10/01/19 at 07:00 Continue basal (glargine) insulin 13 units subcutaneous every 12 hours, this was decreased from 14 units after hypoglycemic episode on 10/01/2019 Continue FS BS with SSI correction scale Titrate insulin further as needed with extreme caution, patient is extremely insulin sensitive (4) Hyperglycemia due to type 1 diabetes mellitus Is this a current diagnosis for this admission?: Yes Plan: Patient tends to have labile blood sugar Continue to monitor closely and titrate basal insulin as needed (5) Anemia Is this a current diagnosis for this admission?: Yes Plan: Patient was discharged earlier this month with an hemoglobin of 8.9. On presentation his hemoglobin was 10.0 however this likely represented some dehydration. H/H trending back down Stool guaiac positive Patient has had iron studies in the past (07/28) which revealed slightly low iron and transferrin with low normal TIBC and normal ferritin Continue FeSO4 325 mg p.o. daily Surgery was consulted for colonoscopy however prior to this he required I&D of LUE abscess, they will reassess when it is safe to proceed with colonoscopy (6) Hyponatremia Is this a current diagnosis for this admission?: Yes Plan: Asymptomatic Serum sodium continues to improve last BMP, labs pending this a.m. Continue current IVF (NS) Monitor (7) Hypokalemia Is this a current diagnosis for this admission?: Yes Plan: Resolved last BMP, labs this a.m. pending Scheduled KCl stopped Monitor (8) Moderate protein-calorie malnutrition Is this a current diagnosis for this admission?: Yes Plan: Likely related to patient's illicit drug abuse and overall poor compliance and self care Awaiting nutrition consult - Time Time Spent with patient: 15-24 minutes Medications reviewed and adjusted accordingly: Yes Anticipated Discharge Disposition: Home, Self Care Anticipated Discharge Timeframe: TBD
[2019-10-02 06:05] LABS: ABSOLUTE BASOPHILS # (AUTO) 0.1 10^3/uL (0.0-0.2); ABSOLUTE EOSINOPHILS # (AUTO) 0.1 10^3/uL (0.0-0.6); ABSOLUTE LYMPHOCYTES (AUTO) 0.8 10^3/uL (0.5-4.7); ABSOLUTE NEUT (AUTO) 5.2 10^3/uL (1.7-8.2); EOSINOPHILS % (AUTO) 1.3 % (0-6); HEMATOCRIT 22.3 % (37.9-51.0); LYMPHOCYTES % (AUTO) 11.2 % (13-45); MEAN CORPUSCULAR HEMOGLOBIN 31.6 pg (27.0-33.4); MEAN CORPUSCULAR HGB CONC 34.5 g/dL (32.0-36.0); MEAN CORPUSCULAR VOLUME 92 fl (80-97); MONOCYTES % (AUTO) 13.6 % (3-13); PLATELET COUNT 451 10^3/uL (150-450); RED BLOOD COUNT 2.44 10^6/uL (4.35-5.55); SEGMENTED NEUTROPHILS % (AUTO) 72.9 % (42-78); TOTAL CELLS COUNTED % (AUTO) 100 %; WHITE BLOOD COUNT 7.2 10^3/uL (4.0-10.5)
[2019-10-02 06:07] LABS: HEMOGLOBIN 7.7 g/dL (13.5-17.0)
[2019-10-02 06:26] LABS: ANION GAP 6 (5-19); BLOOD UREA NITROGEN 9 mg/dL (7-20); CALCIUM 8.1 mg/dL (8.4-10.2); CARBON DIOXIDE 30 mmol/L (22-30); CHLORIDE 99 mmol/L (98-107); GLUCOSE 146 mg/dL (75-110); POTASSIUM 4.1 mmol/L (3.6-5.0)
[2019-10-02] MEDS: INSULIN LISPRO 100 UNIT/ML 3 ML VIAL SUBCUT SCH ×4 (07:59→22:01)
[2019-10-02] MEDS: HYDRALAZINE HCL INJ/PF 20 MG/1 ML SDV IV PRN (07:59)
[2019-10-02] MEDS ORDERED: LISINOPRIL 10 MG TABLET PO ONE ×3 (08:15→16:00)
[2019-10-02] MEDS: VANCOMYCIN HCL 750 MG in DEXTROSE 5%-WATER 250 ML IV SCH ×2 (09:33→21:59)
--- NOTE | 2019-10-02 09:33 | PDOC PROGRESS REPORT ---
Subjective Reason For Visit: CELLULITIS,HYPERGLYCEMIA Patient heavily sedated. Physical Exam Vital Signs: Temp Pulse Resp BP Pulse Ox 97.5 F 79 18 148/80 H 94 10/02/19 05:08 10/02/19 07:00 10/02/19 05:08 10/02/19 05:08 10/02/19 06:06 Intake & Output 10/01/19 10/02/19 10/03/19 06:59 06:59 06:59 Intake Total 2940 3560 Output Total 50 Balance 2940 3510 Weight 55.7 kg 59.8 kg General appearance: PRESENT: no acute distress Musculoskeletal exam: PRESENT: other - Left arm dressing removed. Edema erythema resolved; 2 loop Ander drains intact, packing removed; wound cavity clean, no foul smell or drainage. Repacked Results Laboratory Results: 10/02/19 04:58 10/02/19 04:58 10/02/19 10/02/19 04:58 04:58 WBC 7.2 RBC 2.44 L Hgb 7.7 L Hct 22.3 L MCV 92 MCH 31.6 MCHC 34.5 RDW 15.0 H Plt Count 451 H Seg Neutrophils % 72.9 Sodium 134.9 L Potassium 4.1 Chloride 99 Carbon Dioxide 30 Anion Gap 6 BUN 9 Creatinine 0.81 Est GFR ( Amer) > 60 Glucose 146 H Calcium 8.1 L Assessment & Plan - Diagnosis (1) Cellulitis of arm, left Is this a current diagnosis for this admission?: Yes Plan: Impression: Patient 1 day status post incision drainage packing loop placement upper extremity, growing gram-positive cocci, sepsis controlled, wound repacked Plan: 1. Continue intravenous antibiotics 2. Anticipate loop drain removal tomorrow 3. Anticipate discharge home on p.o. antibiotics and local wound care in the next 24 to 48 hours - Time Time Spent: 30 to 50 Minutes Medications reviewed and adjusted accordingly: Yes Anticipated Discharge Disposition: Home, Self Care Anticipated Discharge Timeframe: within 48 hours
[2019-10-02] MEDS: CARVEDILOL 6.25 MG TABLET PO SCH ×2 (09:35→22:00)
[2019-10-02] MEDS: PAROXETINE HCL 20 MG TABLET PO SCH (09:35)
[2019-10-02] MEDS: FERROUS SULFATE 325 MG TABLET PO SCH (09:35)
[2019-10-02] MEDS: ENOXAPARIN SODIUM INJ 40 MG/0.4 ML DISP.SYRIN SUBCUT SCH (09:36)
[2019-10-02] MEDS ORDERED: LISINOPRIL 10 MG TABLET PO SCH (10:00)
[2019-10-02] MEDS: INSULIN GLARGINE,HUM.REC.ANLOG 1,000 UNIT/10 ML VIAL SUBCUT SCH ×2 (12:14→22:00)
[2019-10-02] MEDS: ACETAMINOPHEN 325 MG TABLET PO PRN ×2 (12:16→22:00)
[2019-10-03] MEDS: HYDRALAZINE HCL INJ/PF 20 MG/1 ML SDV IV PRN ×2 (05:37→11:55)
[2019-10-03 06:06] LABS: HEMATOCRIT 22.1 % (37.9-51.0); MEAN CORPUSCULAR HEMOGLOBIN 31.4 pg (27.0-33.4); MEAN CORPUSCULAR VOLUME 92 fl (80-97); PLATELET COUNT 482 10^3/uL (150-450); RED BLOOD COUNT 2.39 10^6/uL (4.35-5.55); RED CELL DISTRIBUTION WIDTH 15.3 % (11.5-14.0); WHITE BLOOD COUNT 5.9 10^3/uL (4.0-10.5)
[2019-10-03 06:17] LABS: HEMOGLOBIN 7.5 g/dL (13.5-17.0)
[2019-10-03 06:22] LABS: BLOOD UREA NITROGEN 10 mg/dL (7-20); CALCIUM 8.2 mg/dL (8.4-10.2); CARBON DIOXIDE 32 mmol/L (22-30); CHLORIDE 101 mmol/L (98-107); GLUCOSE 80 mg/dL (75-110); POTASSIUM 3.8 mmol/L (3.6-5.0)
[2019-10-03 06:35] LABS: ANION GAP 5 (5-19)
[2019-10-03] MEDS: DEXTROSE 50%-WATER 25 GM/50 ML DISP.SYRIN IV PRN ×2 (07:15→20:40)
[2019-10-03] MEDS: INSULIN LISPRO 100 UNIT/ML 3 ML VIAL SUBCUT SCH ×3 (07:34→17:36)
--- NOTE | 2019-10-03 08:40 | PDOC PROGRESS REPORT ---
Subjective Progress Note for:: 10/03/19 Subjective:: Patient comfortable without complaints Reason For Visit: CELLULITIS,HYPERGLYCEMIA Physical Exam Vital Signs: Temp Pulse Resp BP Pulse Ox 97.2 F 97 16 153/69 H 97 10/03/19 08:15 10/03/19 07:35 10/03/19 07:35 10/03/19 07:35 10/03/19 07:35 Intake & Output 10/02/19 10/03/19 10/04/19 06:59 06:59 06:59 Intake Total 3560 2130 Output Total 50 Balance 3510 2130 Weight 59.8 kg 59.8 kg General appearance: PRESENT: no acute distress Musculoskeletal exam: PRESENT: other - Left arm = surgical wound clean, granulating, without drainage, no odor, no erythema, moderate edema with indura tion Results Laboratory Results: 10/03/19 04:43 10/03/19 04:43 10/03/19 10/03/19 04:43 04:43 WBC 5.9 RBC 2.39 L Hgb 7.5 L Hct 22.1 L MCV 92 MCH 31.4 MCHC 34.0 RDW 15.3 H Plt Count 482 H Sodium 138.0 Potassium 3.8 Chloride 101 Carbon Dioxide 32 H Anion Gap 5 BUN 10 Creatinine 0.67 Est GFR ( Amer) > 60 Glucose 80 Calcium 8.2 L 10/01/19 15:19 Arm - Left Side Abscess Gram Stain - Final 10/01/19 15:19 Arm - Left Side Abscess Wound Culture - Final Mrsa (Meth Resis Staph Aureus) No Anaerobic Organisms Assessment & Plan - Diagnosis (1) MRSA (methicillin resistant Staphylococcus aureus) Is this a current diagnosis for this admission?: Yes (2) Cellulitis of arm, left Is this a current diagnosis for this admission?: Yes - Time Anticipated Discharge Disposition: Home, Self Care Anticipated Discharge Timeframe: As per primary care physician - Plan Summary Plan Summary: Assessment: Postoperative day #2 Left arm abscess site clean Ander drain in place Cultures positive for MRSA Plan: Remove Merrill drains today Today dressing changes with wet-to-dry normal saline technique Patient to be referred to wound care clinic once discharged We will sign off. Please call me with questions
[2019-10-03] MEDS: FERROUS SULFATE 325 MG TABLET PO SCH (09:27)
[2019-10-03] MEDS: PAROXETINE HCL 20 MG TABLET PO SCH (09:27)
[2019-10-03] MEDS: CARVEDILOL 6.25 MG TABLET PO SCH ×2 (09:27→21:35)
[2019-10-03] MEDS: INSULIN GLARGINE,HUM.REC.ANLOG 1,000 UNIT/10 ML VIAL SUBCUT SCH ×2 (09:28→21:36)
[2019-10-03] MEDS: ENOXAPARIN SODIUM INJ 40 MG/0.4 ML DISP.SYRIN SUBCUT SCH (09:28)
[2019-10-03] MEDS: LISINOPRIL 10 MG TABLET PO SCH (09:28)
[2019-10-03] MEDS ORDERED: LISINOPRIL 10 MG TABLET PO SCH (10:00)
[2019-10-03] MEDS ORDERED: PEG 3350/NA SULF,BICARB,CL/KCL 4000 ML PO PRN (10:37)
--- NOTE | 2019-10-03 10:37 | PDOC CONSULTATION ---
Consultation Consult Date: 10/03/19 Provider Consulted: MICHELLE BOOGIE Consult reason:: anemia, rule out GI blood loss History of Present Illness Admission Date/PCP: 09/25/19 22:57 ALFONSO OVALLE PA-C History of Present Illness: AMPARO PHAN is a 53 year old male I was asked to see this patient by the hospitalist group who has admitted this patient frequent admission for DKA. noted to have chronic anemia from previous records does not appear to have had a GI work up COvid 19 testing is negative patient should be scheduled for both EGD and colonoscopy while in house, unclear if patient will be complaint with outpatient follow up Past Medical History Cardiac Medical History: Reports: Congestive Heart Failure - Diastolic, Hypertension Pulmonary Medical History: Denies: Asthma, Chronic Obstructive Pulmonary Disease (COPD) Neurological Medical History: Denies: Seizures Endocrine Medical History: Reports: Diabetes Mellitus Type 1 Denies: Diabetes Mellitus Type 2, Hyperthyroidism, Hypothyroidism GI Medical History: Denies: Cirrhosis, Hepatitis Musculoskeltal Medical History: Denies: Arthritis, Gout Skin Medical History: Denies: Eczema, Psoriasis Psychiatric Medical History: Denies: Depression Hematology: Denies: Anemia, Bleeding Tendencies Past Surgical History Past Surgical History: Reports: Other - Removal of part of a lung as a child due to abscess. Social History Smoking Status: Current Every Day Smoker Electronic Cigarette use?: No Frequency of Alcohol Use: Heavy Hx Recreational Drug Use: Yes Drugs: Cocaine, Heroin Hx Prescription Drug Abuse: Yes Family History Family History: DM, Hypertension. denies: CAD, Malignancy Parental Family History Reviewed: Yes Children Family History Reviewed: Unknown Sibling(s) Family History Reviewed.: Unknown Medication/Allergy Home Medications: Carvedilol [Coreg 6.25 mg Tablet] 6.25 mg PO Q12 #60 tablet 08/09/19 Insulin Lispro [Humalog Kwikpen U-100] 1 - 12 unit SQ ACHS PRN #1 insuln.pen 08/19/19 Famotidine [Pepcid 20 mg Tablet] 20 mg PO DAILY 09/13/19 Paroxetine HCl [Paxil] 10 mg PO DAILY 09/13/19 Insulin Glargine,Hum.rec.anlog [Lantus Insulin 100 Unit/1 ml 10 ml] 11 unit SUBCUT Q12 30 Days #2 vial 09/19/19 Lisinopril [Prinivil 5 mg Tablet] 10 mg PO DAILY 30 Days #30 tablet 09/19/19 Insulin Lispro [Humalog Kwikpen] 15 unit SQ AC 09/26/19 Allergies/Adverse Reactions: No Known Allergies Allergy (Verified 06/08/17 20:19) Review of Systems Constitutional: ABSENT: fever(s), headache(s), night sweats Eyes: ABSENT: visual disturbances Ears: ABSENT: hearing changes Nose, Mouth, and Throat: ABSENT: mouth pain, sore throat Cardiovascular: ABSENT: edema Respiratory: ABSENT: dyspnea, hemoptysis Gastrointestinal: ABSENT: dysphagia, hematemesis Genitourinary: ABSENT: dysuria, hematuria Neurological: ABSENT: syncope, tingling, tremor(s), vertigo Endocrine: ABSENT: polydipsia, polyphagia, polyuria Physical Exam Vital Signs: Temp Pulse Resp BP Pulse Ox 97.2 F 97 16 153/69 H 97 10/03/19 08:15 10/03/19 07:35 10/03/19 07:35 10/03/19 07:35 10/03/19 07:35 Intake & Output 10/02/19 10/03/19 10/04/19 06:59 06:59 06:59 Intake Total 3560 2130 Output Total 50 Balance 3510 2130 Weight 59.8 kg 59.8 kg General appearance: PRESENT: no acute distress, well-developed, well-nourished Head exam: PRESENT: atraumatic, normocephalic Eye exam: PRESENT: EOMI, PERRLA. ABSENT: scleral icterus Mouth exam: PRESENT: moist, neck supple Neck exam: ABSENT: meningismus, tenderness, thyromegaly Respiratory exam: PRESENT: symmetrical, unlabored. ABSENT: tachypnea, wheezes Cardiovascular exam: PRESENT: RRR, +S1, +S2 GI/Abdominal exam: PRESENT: normal bowel sounds. ABSENT: Patel's sign, organolmegaly, rebound Neurological exam: PRESENT: oriented to person, oriented to time, CN II-XII grossly intact Skin exam: PRESENT: normal color. ABSENT: mottled, pallor, petechiae, urticaria Results Laboratory Results: 10/03/19 04:43 10/03/19 04:43 10/03/19 10/03/19 04:43 04:43 WBC 5.9 RBC 2.39 L Hgb 7.5 L Hct 22.1 L MCV 92 MCH 31.4 MCHC 34.0 RDW 15.3 H Plt Count 482 H Sodium 138.0 Potassium 3.8 Chloride 101 Carbon Dioxide 32 H Anion Gap 5 BUN 10 Creatinine 0.67 Est GFR ( Amer) > 60 Glucose 80 Calcium 8.2 L 10/01/19 15:19 Shoulder - Left Side Abscess Gram Stain - Final 10/01/19 15:19 Shoulder - Left Side Abscess Body Fluid Culture - Final Mrsa (Meth Resis Staph Aureus) No Anaerobic Organisms 10/01/19 15:19 Arm - Left Side Abscess Gram Stain - Final 10/01/19 15:19 Arm - Left Side Abscess Wound Culture - Final Mrsa (Meth Resis Staph Aureus) No Anaerobic Organisms Assessment & Plan - Diagnosis (1) Anemia Is this a current diagnosis for this admission?: Yes Plan: likely due to a combination of factors but GI bleeding will need to be excluded will schedule for EGD and colonoscopy Risks, benefits and alternatives are discussed with the patient in detail further recommendations to follow he will need Propofol sedation I will call anesthesia if they think he can be safely done out of the OR setting - Time Time Spent: 50 to 70 Minutes
[2019-10-03] MEDS: ACETAMINOPHEN 325 MG TABLET PO PRN (11:20)
[2019-10-03] MEDS: NORMAL SALINE 1000 ML 1,000 ML IV PRN (11:22)
[2019-10-03] MEDS ORDERED: NORMAL SALINE 1000 ML 1,000 ML IV PRN (18:49)
--- NOTE | 2019-10-03 18:55 | PDOC PROGRESS REPORT ---
Subjective Progress Note for:: 10/03/19 Subjective:: Was seen on morning rounds. He was found resting in bed, comfortably, on room air. He reports that his arm is feeling much better following I&D. Primary complaint today is fatigue and chills. T-max last 24 hours 98.0. Otherwise, he denies fever, chest pain, palpitations, dyspnea, orthopnea, cough, abdominal pain, nausea vomiting and diarrhea. He has no questions or concerns at this time. No concerns per nursing. Reason For Visit: CELLULITIS,HYPERGLYCEMIA Physical Exam Vital Signs: Temp Pulse Resp BP Pulse Ox 98.0 F 85 12 144/81 H 91 L 10/03/19 15:28 10/03/19 15:28 10/03/19 15:28 10/03/19 15:28 10/03/19 15:28 Intake & Output 10/02/19 10/03/19 10/04/19 06:59 06:59 06:59 Intake Total 3560 3130 300 Output Total 50 Balance 3510 3130 300 Weight 59.8 kg 59.8 kg General appearance: PRESENT: no acute distress, cooperative, thin, well- developed Head exam: PRESENT: atraumatic, normocephalic Eye exam: PRESENT: conjunctiva pink, EOMI, PERRLA. ABSENT: scleral icterus Ear exam: PRESENT: normal external ear exam Mouth exam: PRESENT: moist, tongue midline Respiratory exam: PRESENT: clear to auscultation baldemar, symmetrical, unlabored. ABSENT: rales, rhonchi, wheezes Cardiovascular exam: PRESENT: RRR, +S1, +S2. ABSENT: diastolic murmur, rubs, systolic murmur Pulses: PRESENT: normal dorsalis pedis pul Vascular exam: PRESENT: normal capillary refill GI/Abdominal exam: PRESENT: normal bowel sounds, soft. ABSENT: distended, guarding, mass, organolmegaly, rebound, tenderness Rectal exam: PRESENT: deferred Extremities exam: PRESENT: full ROM. ABSENT: calf tenderness, clubbing, pedal edema Neurological exam: PRESENT: alert, awake, oriented to person, oriented to place, oriented to time, oriented to situation, CN II-XII grossly intact. ABSENT: motor sensory deficit Psychiatric exam: PRESENT: agitated, normal mood. ABSENT: homicidal ideation, suicidal ideation Skin exam: PRESENT: dry, warm. ABSENT: cyanosis, intact - LUE with intact dressing/Krzysztof wrap, rash Results Laboratory Results: 10/03/19 04:43 10/03/19 04:43 10/03/19 10/03/19 04:43 04:43 WBC 5.9 RBC 2.39 L Hgb 7.5 L Hct 22.1 L MCV 92 MCH 31.4 MCHC 34.0 RDW 15.3 H Plt Count 482 H Sodium 138.0 Potassium 3.8 Chloride 101 Carbon Dioxide 32 H Anion Gap 5 BUN 10 Creatinine 0.67 Est GFR ( Amer) > 60 Glucose 80 Calcium 8.2 L 10/01/19 15:19 Shoulder - Left Side Abscess Gram Stain - Final 10/01/19 15:19 Shoulder - Left Side Abscess Body Fluid Culture - Final Mrsa (Meth Resis Staph Aureus) No Anaerobic Organisms 10/01/19 15:19 Arm - Left Side Abscess Gram Stain - Final 10/01/19 15:19 Arm - Left Side Abscess Wound Culture - Final Mrsa (Meth Resis Staph Aureus) No Anaerobic Organisms Assessment and Plan - Diagnosis (1) Anemia Is this a current diagnosis for this admission?: Yes Plan: Patient was discharged earlier this month with an hemoglobin of 8.9. On presentation his hemoglobin was 10.0; has trended down to 7.5 w/ IVF Stool guaiac positive Patient has had iron studies in the past (07/28) which revealed slightly low iron and transferrin with low normal TIBC and normal ferritin Continue FeSO4 325 mg p.o. daily Have consulted GI for colonoscopy. Clear liquids today; bowel prep per Dr. Mooney, NPO after midnight. (2) Cellulitis of arm, left Is this a current diagnosis for this admission?: Yes Plan: Surgery assistance appreciated S/P I&D of left biceps abscess on 10/01/2019 Blood cultures from 09/25/2019 NG at 5 days Surgical/abscess culture 07/01/2019: w/ MRSA Initially on Vanc; will transition to p.o. Bactrim. He is signed off; follow-up in the wound care clinic in 7 to 10 days. (3) Moderate protein-calorie malnutrition Is this a current diagnosis for this admission?: Yes Plan: Likely related to patient's illicit drug abuse and overall poor compliance and self care violin teacher is consulted (4) Hyperglycemia due to type 1 diabetes mellitus Is this a current diagnosis for this admission?: Yes Plan: Patient tends to have labile blood sugar Continue to monitor closely and titrate basal insulin as needed (5) Hyponatremia Is this a current diagnosis for this admission?: Yes Plan: Resolved. Continue current IVF (NS) Monitor (6) Type 1 diabetes mellitus Is this a current diagnosis for this admission?: Yes Plan: Continue basal (glargine) insulin 12 units subcutaneous every 12 hours. Continue FS BS with SSI correction scale Hypoglycemia protocol in place. (7) Leucocytosis Is this a current diagnosis for this admission?: Yes Plan: Leukocytosis resolved Cultures and antibiotics as above. - Time Time Spent with patient: 35 or more minutes Medications reviewed and adjusted accordingly: Yes Anticipated Discharge Disposition: Home with Home Health Anticipated Discharge Timeframe: within 48 hours
[2019-10-03] MEDS: SULFAMETHOXAZOLE/TRIMETHOPRIM 800-160 MG TABLET PO SCH (19:55)
[2019-10-03] MEDS ORDERED: DEXTROSE 5%-WATER 1000 ML 1,000 ML IV PRN (20:59)
[2019-10-04] MEDS: INSULIN LISPRO 100 UNIT/ML 3 ML VIAL SUBCUT SCH ×5 (00:21→21:49)
[2019-10-04] MEDS: HYDRALAZINE HCL INJ/PF 20 MG/1 ML SDV IV PRN ×2 (00:24→17:35)
[2019-10-04] MEDS: DEXTROSE 50%-WATER 25 GM/50 ML DISP.SYRIN IV PRN ×2 (00:24→06:21)
[2019-10-04 05:36] LABS: HEMOGLOBIN 8.6 g/dL (13.5-17.0); MEAN CORPUSCULAR HEMOGLOBIN 31.1 pg (27.0-33.4); MEAN CORPUSCULAR HGB CONC 34.3 g/dL (32.0-36.0); MEAN CORPUSCULAR VOLUME 91 fl (80-97); PLATELET COUNT 532 10^3/uL (150-450); RED BLOOD COUNT 2.75 10^6/uL (4.35-5.55); RED CELL DISTRIBUTION WIDTH 15.2 % (11.5-14.0); WHITE BLOOD COUNT 5.4 10^3/uL (4.0-10.5)
[2019-10-04 05:53] LABS: BLOOD UREA NITROGEN 8 mg/dL (7-20); CALCIUM 8.5 mg/dL (8.4-10.2); POTASSIUM 3.6 mmol/L (3.6-5.0)
[2019-10-04 06:00] LABS: ANION GAP 5 (5-19); CARBON DIOXIDE 33 mmol/L (22-30); CHLORIDE 100 mmol/L (98-107)
[2019-10-04 06:04] LABS: GLUCOSE 43 mg/dL (75-110)
[2019-10-04] MEDS: ACETAMINOPHEN 325 MG TABLET PO PRN ×2 (08:45→17:33)
[2019-10-04] MEDS ORDERED: PROPOFOL INJ 200 MG/20 ML VIAL IV ONE ×2 (09:46→12:43)
--- NOTE | 2019-10-04 11:45 | Operative Report ---
Operative Report DATE OF SURGERY: 10/04/19 Operative Report: The risk, benefits and alternatives of the procedure including the risk of bleeding, perforation requiring surgery have been explained to the patient in detail and informed consent has been obtained. Patient is taken back to the endoscopy suite and placed in a left, lateral decubital position. Timeout was called. Propofol medication is administered. Rectal examination is done which did not reveal any masses, tears or fissures. An Olympus videoscope was introduced into the patient's rectum. Scope was then carefully advanced all the way to the cecum. Cecum is identified by the usual anatomical landmarks including the ileocecal valve as well as the appendiceal office. Photodocumentation is obtained. Scope was then sequentially pulled back via the various segments of the colon including the ascending colon, hepatic flexure, transverse colon, splenic flexure, descending colon and finally into the rectosigmoid portions of the colon. Retroflexion maneuvers performed. The risks benefits and alternatives of the procedure explained to the patient in detail and informed consent is obtained.A GIF Olympus video scope was inserted into the patient's mouth and hypopharynx, the esophagus is identified intubated and insufflated ,the scope was then advanced through the esophagus stomach and duodenum, retroflexion maneuver is done the esophagus stomach and first and second portions of the duodenum examined PREOPERATIVE DIAGNOSIS: Chronic anemia rule out GI bleed POSTOPERATIVE DIAGNOSIS: No active bleeding source noted either on the upper endoscopy nor the colonoscopy. Random right sided colon inflammation status post biopsy. Gastritis status post biopsy OPERATION: Colonoscopy with biopsy. EGD with biopsy SURGEON: MICHELLE BOOGIE ANESTHESIA: LMAC TISSUE REMOVED OR ALTERED: As noted above. COMPLICATIONS: None. ESTIMATED BLOOD LOSS: None. INTRAOPERATIVE FINDINGS: As noted above. PROCEDURE: Patient tolerated the procedure well. Patient is sent back to his room in good condition. Resume regular diet as tolerated. We will wait on biopsies. Further recommendations to follow.
[2019-10-04] MEDS ORDERED: LIDOCAINE 2% INJ-PF (20 MG/ML) 10 ML AMPUL ONE (12:43)
[2019-10-04] MEDS: SULFAMETHOXAZOLE/TRIMETHOPRIM 800-160 MG TABLET PO SCH ×2 (13:11→17:34)
[2019-10-04] MEDS: FERROUS SULFATE 325 MG TABLET PO SCH (13:12)
[2019-10-04] MEDS: ENOXAPARIN SODIUM INJ 40 MG/0.4 ML DISP.SYRIN SUBCUT SCH (13:12)
[2019-10-04] MEDS: LISINOPRIL 10 MG TABLET PO SCH (13:12)
[2019-10-04] MEDS: PAROXETINE HCL 20 MG TABLET PO SCH (13:12)
[2019-10-04] MEDS: CARVEDILOL 6.25 MG TABLET PO SCH ×2 (13:12→21:49)
--- NOTE | 2019-10-04 16:27 | PDOC PROGRESS REPORT ---
Subjective Progress Note for:: 10/04/19 Subjective:: Patient was seen on afternoon rounds following colonoscopy. He was found resting in bed, comfortably, on supplemental oxygen; he is not home O2 dependent. He reports that his arm is feeling much better following I&D. States he is feeling well today and hopeful to discharge home soon. He denies fever, chills, fatigue, chest pain, palpitations, dyspnea, orthopnea, cough, abdominal pain, nausea vomiting and diarrhea. He has no questions or concerns at this time. No concerns per nursing. Reason For Visit: CELLULITIS,HYPERGLYCEMIA Physical Exam Vital Signs: Temp Pulse Resp BP Pulse Ox 97.6 F 84 20 156/88 H 95 10/04/19 14:30 10/04/19 14:30 10/04/19 14:30 10/04/19 14:30 10/04/19 14:30 Intake & Output 10/03/19 10/04/19 10/05/19 06:59 06:59 06:59 Intake Total 3130 1300 630 Balance 3130 1300 630 Weight 59.8 kg 59.8 kg 59.8 kg General appearance: PRESENT: no acute distress, thin, well-developed, well-nour ished Head exam: PRESENT: atraumatic, normocephalic Eye exam: PRESENT: conjunctiva pink, EOMI, PERRLA. ABSENT: scleral icterus Mouth exam: PRESENT: moist, tongue midline Respiratory exam: PRESENT: clear to auscultation baldemar, symmetrical, unlabored, other - 2 L/min. ABSENT: rales, rhonchi, wheezes Cardiovascular exam: PRESENT: RRR. ABSENT: diastolic murmur, rubs, systolic murmur Pulses: PRESENT: normal dorsalis pedis pul Vascular exam: PRESENT: normal capillary refill GI/Abdominal exam: PRESENT: normal bowel sounds, soft. ABSENT: distended, guarding, mass, organolmegaly, rebound, tenderness Rectal exam: PRESENT: deferred Extremities exam: PRESENT: full ROM. ABSENT: calf tenderness, clubbing, pedal edema Neurological exam: PRESENT: alert, awake, oriented to person, oriented to place, oriented to time, oriented to situation, CN II-XII grossly intact. ABSENT: motor sensory deficit Psychiatric exam: PRESENT: normal mood, unusual affect. ABSENT: homicidal ideation, suicidal ideation Skin exam: PRESENT: dry, intact, warm. ABSENT: cyanosis, rash Results Laboratory Results: 10/04/19 05:07 10/04/19 05:07 10/04/19 10/04/19 05:07 05:07 WBC 5.4 RBC 2.75 L Hgb 8.6 L Hct 25.0 L MCV 91 MCH 31.1 MCHC 34.3 RDW 15.2 H Plt Count 532 H Sodium 137.7 Potassium 3.6 Chloride 100 Carbon Dioxide 33 H Anion Gap 5 BUN 8 Creatinine 0.59 Est GFR ( Amer) > 60 Glucose 43 L Calcium 8.5 Assessment and Plan - Diagnosis (1) Anemia Is this a current diagnosis for this admission?: Yes Plan: Patient was discharged earlier this month with an hemoglobin of 8.9. Hgb 10 -> 7.5-> 8.6 Stool guaiac positive Patient has had iron studies in the past (07/28) which revealed slightly low iron and transferrin with low normal TIBC and normal ferritin Continue FeSO4 325 mg p.o. daily Colonoscopy today revealed gastritis and right sided colon inflammation. Start PPI. (2) Cellulitis of arm, left Is this a current diagnosis for this admission?: Yes Plan: Surgery assistance appreciated S/P I&D of left biceps abscess on 10/01/2019 Blood cultures from 09/25/2019 NG at 5 days Surgical/abscess culture 07/01/2019: w/ MRSA Initially on Vanc; have transitioned to p.o. Bactrim. He is signed off; follow-up in the wound care clinic in 7 to 10 days. (3) Moderate protein-calorie malnutrition Is this a current diagnosis for this admission?: Yes Plan: Likely related to patient's illicit drug abuse and overall poor compliance and self care washing machine loader is consulted (4) Hyperglycemia due to type 1 diabetes mellitus Is this a current diagnosis for this admission?: Yes Plan: Patient tends to have labile blood sugar Continue to monitor closely and titrate basal insulin as needed (5) Hyponatremia Is this a current diagnosis for this admission?: Yes Plan: Resolved. Monitor (6) Type 1 diabetes mellitus Is this a current diagnosis for this admission?: Yes Plan: Continue basal (glargine) insulin 8 units subcutaneous every 12 hours. Continue FS BS with SSI correction scale Hypoglycemia protocol in place. (7) Leucocytosis Is this a current diagnosis for this admission?: Yes Plan: Leukocytosis resolved Cultures and antibiotics as above. - Time Time Spent with patient: 15-24 minutes Medications reviewed and adjusted accordingly: Yes Anticipated Discharge Disposition: Home, Self Care Anticipated Discharge Timeframe: within 24 hours
[2019-10-04] MEDS: PANTOPRAZOLE SODIUM 40 MG TABLET.DR PO SCH (17:34)
[2019-10-04] MEDS ORDERED: INSULIN GLARGINE,HUM.REC.ANLOG 1,000 UNIT/10 ML VIAL SUBCUT SCH (22:00)
[2019-10-05 06:50] LABS: HEMATOCRIT 23.5 % (37.9-51.0); MEAN CORPUSCULAR HEMOGLOBIN 30.9 pg (27.0-33.4); MEAN CORPUSCULAR HGB CONC 33.5 g/dL (32.0-36.0); MEAN CORPUSCULAR VOLUME 92 fl (80-97); PLATELET COUNT 534 10^3/uL (150-450); RED BLOOD COUNT 2.55 10^6/uL (4.35-5.55); RED CELL DISTRIBUTION WIDTH 15.8 % (11.5-14.0); WHITE BLOOD COUNT 8.2 10^3/uL (4.0-10.5)
[2019-10-05] MEDS: PANTOPRAZOLE SODIUM 40 MG TABLET.DR PO SCH ×2 (06:51→16:49)
[2019-10-05 07:06] LABS: HEMOGLOBIN 7.9 g/dL (13.5-17.0)
[2019-10-05] MEDS: INSULIN LISPRO 100 UNIT/ML 3 ML VIAL SUBCUT SCH ×4 (07:15→22:41)
[2019-10-05] MEDS: SULFAMETHOXAZOLE/TRIMETHOPRIM 800-160 MG TABLET PO SCH ×2 (09:16→17:26)
[2019-10-05] MEDS: LISINOPRIL 10 MG TABLET PO SCH (09:16)
[2019-10-05] MEDS: CARVEDILOL 6.25 MG TABLET PO SCH ×2 (09:17→22:41)
[2019-10-05] MEDS: FERROUS SULFATE 325 MG TABLET PO SCH (09:17)
[2019-10-05] MEDS: PAROXETINE HCL 20 MG TABLET PO SCH (09:17)
[2019-10-05] MEDS: ENOXAPARIN SODIUM INJ 40 MG/0.4 ML DISP.SYRIN SUBCUT SCH (09:19)
[2019-10-05] MEDS: HYDRALAZINE HCL INJ/PF 20 MG/1 ML SDV IV PRN (12:39)
[2019-10-05] MEDS ORDERED: ONDANSETRON HCL INJ/PF 4 MG/2 ML SDV IV PRN (13:00)
--- NOTE | 2019-10-05 16:49 | RADIOLOGY REPORT (SQ) ---
EXAM DESCRIPTION: CHEST 2 VIEWS IMAGES COMPLETED DATE/TIME: 10/05/2019 4:40 pm REASON FOR STUDY: dyspnea, hypoxia COMPARISON: 09/13/2019 EXAM PARAMETERS: NUMBER OF VIEWS: two views TECHNIQUE: Digital Frontal and Lateral radiographic views of the chest acquired. RADIATION DOSE: NA LIMITATIONS: none FINDINGS: LUNGS AND PLEURA: Small right pleural effusion and moderate left pleural effusion. MEDIASTINUM AND HILAR STRUCTURES: No masses or contour abnormalities. HEART AND VASCULAR STRUCTURES: Heart normal size. No evidence for failure. BONES: No acute findings. HARDWARE: None in the chest. OTHER: No other significant finding. IMPRESSION: Moderate left and small right pleural effusion. TECHNICAL DOCUMENTATION: JOB ID: [id number] 2010 [employer]- All Rights Reserved Reading location - IP/workstation name: [email or web address]
[2019-10-05] MEDS ORDERED: ALBUTEROL SULFATE 0.083% NEB 2.5 MG/3 ML AMPUL NEB PRN (17:21)
--- NOTE | 2019-10-05 17:23 | PDOC PROGRESS REPORT ---
Subjective Progress Note for:: 10/05/19 Subjective:: Patient was seen on afternoon rounds. He was found resting in bed, comfortably, on supplemental oxygen; he is not home O2 dependent. He reports that he is feeling much better. Discussed planned discharge; patient reports that his mother and sister will be available to help with wound care. He is agreeable to home health nursing. He denies fever, chills, fatigue, chest pain, palpitations, dyspnea, orthopnea, cough, abdominal pain, nausea vomiting and diarrhea. He has no questions or concerns at this time. While obtaining discharge vital signs, nursing noted that he had desatted while on room air. Resting room air saturation in the low 70s. Improved to mid 90s with supplemental oxygen via nasal cannula at 2 L/min. Reason For Visit: CELLULITIS,HYPERGLYCEMIA Physical Exam Vital Signs: Temp Pulse Resp BP Pulse Ox 98.0 F 85 16 126/65 H 100 10/05/19 15:24 10/05/19 15:24 10/05/19 15:24 10/05/19 15:24 10/05/19 15:24 Intake & Output 10/04/19 10/05/19 10/06/19 06:59 06:59 06:59 Intake Total 1300 1350 240 Balance 1300 1350 240 Weight 59.8 kg 60.1 kg General appearance: PRESENT: no acute distress, cooperative, thin, well- developed, well-nourished Head exam: PRESENT: atraumatic, normocephalic Eye exam: PRESENT: conjunctiva pink, EOMI, PERRLA. ABSENT: scleral icterus Mouth exam: PRESENT: moist, tongue midline Respiratory exam: PRESENT: clear to auscultation baldemar, symmetrical, unlabored, other - Supplemental oxygen. ABSENT: rales, rhonchi, wheezes Cardiovascular exam: PRESENT: RRR. ABSENT: diastolic murmur, rubs, systolic murmur Pulses: PRESENT: normal dorsalis pedis pul Vascular exam: PRESENT: normal capillary refill Extremities exam: PRESENT: full ROM. ABSENT: calf tenderness, clubbing, pedal edema Neurological exam: PRESENT: alert, awake, oriented to person, oriented to place, oriented to time, oriented to situation, CN II-XII grossly intact. ABSENT: mo tor sensory deficit Psychiatric exam: PRESENT: normal mood, unusual affect. ABSENT: homicidal ideation, suicidal ideation Skin exam: PRESENT: dry, warm. ABSENT: cyanosis, rash Results Laboratory Results: 10/05/19 05:56 10/04/19 05:07 10/05/19 05:56 WBC 8.2 RBC 2.55 L Hgb 7.9 L Hct 23.5 L MCV 92 MCH 30.9 MCHC 33.5 RDW 15.8 H Plt Count 534 H Impressions: Chest X-Ray 10/05/19 00:00 IMPRESSION: Moderate left and small right pleural effusion. Assessment and Plan - Diagnosis (1) Hypoxia Is this a current diagnosis for this admission?: Yes Plan: Nursing noted room air saturation 75%; verified with separate pulse oximeter. Placed on 2 L by nasal cannula with quick return to 95%. Patient denies dyspnea, cough, fever, chills. Chest x-ray read as moderate left and small right pleural effusions. On personal review, he does appear to have some vascular congestion and a questionable interstitial pneumonia on the right. Discussed with Dr. Lomeli who agrees with low threshold for COVID testing as the patient is "happy hypoxic" and has had multiple admissions, ER visits, and an ICU stay within the last month thus putting him at a higher than average risk of exposure. We will obtain COVID testing. We will check d-dimer, ferritin, CRP, LDH, proBNP Continue supplemental oxygen as needed maintain saturations greater than 89%. As needed nebulizer treatments. Zinc, vitamin D, vitamin C, and melatonin supplementation. Consider full dose Lovenox pending d-dimer results. Encourage pulmonary toilet. (2) Suspected COVID-19 virus infection Is this a current diagnosis for this admission?: Yes Plan: As above. (3) Anemia Qualifiers: Anemia type: iron deficiency Iron deficiency anemia type: chronic blood loss Qualified Code(s): D50.0 - Iron deficiency anemia secondary to blood loss (chronic) Is this a current diagnosis for this admission?: Yes Plan: Patient was discharged earlier this month with an hemoglobin of 8.9. Hgb 10 -> 7.5-> 8.6-> 7.9 Stool guaiac positive Patient has had iron studies in the past (07/28) which revealed slightly low iron and transferrin with low normal TIBC and normal ferritin Continue FeSO4 325 mg p.o. daily Colonoscopy revealed gastritis and right sided colon inflammation. Continue PPI. (4) Cellulitis of arm, left Is this a current diagnosis for this admission?: Yes Plan: Surgery assistance appreciated S/P I&D of left biceps abscess on 10/01/2019 Blood cultures from 09/25/2019 NG at 5 days Surgical/abscess culture 07/01/2019: w/ MRSA Initially on Vanc; have transitioned to p.o. Bactrim. Day #10 of antibiotic therapy. Surgery is signed off; follow-up in the wound care clinic in 7 to 10 days. (5) Moderate protein-calorie malnutrition Is this a current diagnosis for this admission?: Yes Plan: Likely related to patient's illicit drug abuse and overall poor compliance and self care fuel efficient automobile designer is consulted (6) Hyperglycemia due to type 1 diabetes mellitus Is this a current diagnosis for this admission?: Yes Plan: Patient tends to have labile blood sugar Continue to monitor closely and titrate basal insulin as needed (7) Hyponatremia Is this a current diagnosis for this admission?: Yes Plan: Resolved. Monitor (8) Type 1 diabetes mellitus Is this a current diagnosis for this admission?: Yes Plan: Continue basal (glargine) insulin 8 units subcutaneous every 12 hours. Continue FS BS with SSI correction scale Hypoglycemia protocol in place. (9) Leucocytosis Is this a current diagnosis for this admission?: Yes Plan: Leukocytosis resolved Cultures and antibiotics as above. - Time Time Spent with patient: 35 or more minutes Medications reviewed and adjusted accordingly: Yes Anticipated Discharge Disposition: Home with Home Health Anticipated Discharge Timeframe: UTD
[2019-10-05 18:47] LABS: BLOOD UREA NITROGEN 14 mg/dL (7-20); CALCIUM 8.4 mg/dL (8.4-10.2); GLUCOSE 176 mg/dL (75-110)
[2019-10-05 18:50] LABS: C-REACTIVE PROTEIN 11.3 mg/L (<10.0)
[2019-10-05 19:19] LABS: FERRITIN 78.8 ng/mL (17.9-464.0)
[2019-10-05 19:21] LABS: CARBON DIOXIDE 29 mmol/L (22-30); CHLORIDE 98 mmol/L (98-107); POTASSIUM 4.3 mmol/L (3.6-5.0)
[2019-10-05 19:25] LABS: ANION GAP 7 (5-19)
[2019-10-05 19:48] LABS: ARTERIAL BLOOD BASE EXCESS 8.1 mmol/L; ARTERIAL BLOOD HCO3 33.2 mmol/L (20-24); ARTERIAL BLOOD O2 SATURATION 96.1 % (94-98); ARTERIAL BLOOD PCO2 49.7 mmHg (35-45); ARTERIAL BLOOD PH 7.44 (7.35-7.45); ARTERIAL BLOOD PO2 80.2 mmHg (80-100); ARTERIAL BLOOD TOTAL CO2 34.7 mmol/L (23-27)
[2019-10-05 19:49] LABS: ARTERIAL BLOOD FIO2 2L
[2019-10-06] MEDS: FUROSEMIDE INJ/PF 20 MG/2 ML SDV IV SCH ×3 (00:45→21:17)
[2019-10-06] MEDS: HYDRALAZINE HCL INJ/PF 20 MG/1 ML SDV IV PRN (01:09)
[2019-10-06 05:14] LABS: ABSOLUTE BASOPHILS # (AUTO) 0.1 10^3/uL (0.0-0.2); ABSOLUTE EOSINOPHILS # (AUTO) 0.1 10^3/uL (0.0-0.6); ABSOLUTE LYMPHOCYTES (AUTO) 0.9 10^3/uL (0.5-4.7); ABSOLUTE MONOCYTES (AUTO) 0.6 10^3/uL (0.1-1.4); ABSOLUTE NEUT (AUTO) 5.5 10^3/uL (1.7-8.2); BASOPHILS % (AUTO) 1.2 % (0-2); HEMATOCRIT 23.6 % (37.9-51.0); LYMPHOCYTES % (AUTO) 12.9 % (13-45); MEAN CORPUSCULAR HGB CONC 33.8 g/dL (32.0-36.0); MEAN CORPUSCULAR VOLUME 92 fl (80-97); MONOCYTES % (AUTO) 8.4 % (3-13); PLATELET COUNT 495 10^3/uL (150-450); RED BLOOD COUNT 2.57 10^6/uL (4.35-5.55); RED CELL DISTRIBUTION WIDTH 15.5 % (11.5-14.0); SEGMENTED NEUTROPHILS % (AUTO) 76.5 % (42-78); TOTAL CELLS COUNTED % (AUTO) 100 %; WHITE BLOOD COUNT 7.2 10^3/uL (4.0-10.5)
[2019-10-06] MEDS: PANTOPRAZOLE SODIUM 40 MG TABLET.DR PO SCH ×2 (05:27→17:07)
[2019-10-06 05:35] LABS: ANION GAP 8 (5-19); BLOOD UREA NITROGEN 16 mg/dL (7-20); CALCIUM 8.3 mg/dL (8.4-10.2); CARBON DIOXIDE 31 mmol/L (22-30); CHLORIDE 94 mmol/L (98-107); GLUCOSE 258 mg/dL (75-110); POTASSIUM 4.4 mmol/L (3.6-5.0)
[2019-10-06] MEDS: INSULIN LISPRO 100 UNIT/ML 3 ML VIAL SUBCUT SCH ×4 (08:10→21:17)
[2019-10-06] MEDS: CARVEDILOL 6.25 MG TABLET PO SCH ×2 (09:28→21:16)
[2019-10-06] MEDS: ENOXAPARIN SODIUM INJ 40 MG/0.4 ML DISP.SYRIN SUBCUT SCH (09:28)
[2019-10-06] MEDS: FERROUS SULFATE 325 MG TABLET PO SCH (09:29)
[2019-10-06] MEDS: SULFAMETHOXAZOLE/TRIMETHOPRIM 800-160 MG TABLET PO SCH ×2 (09:29→17:07)
[2019-10-06] MEDS: LISINOPRIL 10 MG TABLET PO SCH (09:29)
[2019-10-06] MEDS: PAROXETINE HCL 20 MG TABLET PO SCH (09:29)
--- NOTE | 2019-10-06 19:16 | PDOC PROGRESS REPORT ---
Subjective Progress Note for:: 10/06/19 Subjective:: Patient was seen on afternoon rounds. He was found resting in bed, comfortably, on supplemental oxygen; he is not home O2 dependent. Has no complaints today. States he "feels fine." He denies fever, chills, fatigue, chest pain, palpitations, dyspnea, orthopnea, cough, abdominal pain, nausea vomiting and diarrhea. He has no questions or concerns at this time. No concerns per nursing. Reason For Visit: CELLULITIS,HYPERGLYCEMIA Physical Exam Vital Signs: Temp Pulse Resp BP Pulse Ox 97.8 F 75 18 146/81 H 97 10/06/19 15:17 10/06/19 15:17 10/06/19 15:17 10/06/19 15:17 10/06/19 15:17 Intake & Output 10/05/19 10/06/19 10/07/19 06:59 06:59 06:59 Intake Total 1350 996 720 Output Total 2000 1300 Balance 1350 -1004 -580 Weight 60.1 kg 57.4 kg General appearance: PRESENT: no acute distress, cooperative, thin, well- developed, well-nourished Head exam: PRESENT: atraumatic, normocephalic Eye exam: PRESENT: conjunctiva pink, EOMI, PERRLA. ABSENT: scleral icterus Mouth exam: PRESENT: moist, tongue midline Respiratory exam: PRESENT: clear to auscultation baldemar, symmetrical, unlabored, other - supplemental oxygen. ABSENT: rales, rhonchi, wheezes Cardiovascular exam: PRESENT: RRR, +S1, +S2. ABSENT: diastolic murmur, rubs, systolic murmur Pulses: PRESENT: normal dorsalis pedis pul Vascular exam: PRESENT: normal capillary refill Extremities exam: PRESENT: full ROM. ABSENT: calf tenderness, clubbing, pedal edema Neurological exam: PRESENT: alert, awake, oriented to person, oriented to place, oriented to time, oriented to situation, CN II-XII grossly intact. ABSENT: amalia r sensory deficit Psychiatric exam: PRESENT: normal mood, unusual affect. ABSENT: homicidal ideation, suicidal ideation Skin exam: PRESENT: dry, warm. ABSENT: cyanosis, rash Results Laboratory Results: 10/06/19 03:56 10/06/19 03:56 10/05/19 10/05/19 10/05/19 17:56 17:56 18:40 WBC RBC Hgb Hct MCV MCH MCHC RDW Plt Count Seg Neutrophils % Carbonic Acid 1.50 H HCO3/H2CO3 Ratio 22:1 ABG pH 7.44 ABG pCO2 49.7 H ABG pO2 80.2 ABG HCO3 33.2 H ABG O2 Saturation 96.1 ABG Base Excess 8.1 FiO2 2L Sodium 133.8 L Potassium 4.3 Chloride 98 Carbon Dioxide 29 Anion Gap 7 BUN 14 Creatinine 1.18 Est GFR ( Amer) > 60 Glucose 176 H Calcium 8.4 Ferritin 78.80 C-Reactive Protein 11.3 H 10/06/19 10/06/19 03:56 03:56 WBC 7.2 RBC 2.57 L Hgb 8.0 L Hct 23.6 L MCV 92 MCH 31.0 MCHC 33.8 RDW 15.5 H Plt Count 495 H Seg Neutrophils % 76.5 Carbonic Acid HCO3/H2CO3 Ratio ABG pH ABG pCO2 ABG pO2 ABG HCO3 ABG O2 Saturation ABG Base Excess FiO2 Sodium 132.8 L Potassium 4.4 Chloride 94 L Carbon Dioxide 31 H Anion Gap 8 BUN 16 Creatinine 1.04 Est GFR ( Amer) > 60 Glucose 258 H Calcium 8.3 L Ferritin C-Reactive Protein 10/05/19 17:56 NT-Pro-B Natriuret Pep 4350 H Impressions: Chest X-Ray 10/05/19 00:00 IMPRESSION: Moderate left and small right pleural effusion. Assessment and Plan - Diagnosis (1) Hypoxia Is this a current diagnosis for this admission?: Yes Plan: Nursing noted room air saturation 75%; verified with separate pulse oximeter. Placed on 2 L by nasal cannula with quick return to 95%. Patient denies dyspnea, cough, fever, chills. Chest x-ray read as moderate left and small right pleural effusions. On personal review, he does appear to have some vascular congestion and a questionable interstitial pneumonia on the right. Discussed with Dr. Lomeli who agrees with low threshold for COVID testing as the patient is "happy hypoxic" and has had multiple admissions, ER visits, and an ICU stay within the last month thus putting him at a higher than average risk of exposure. COVID still pending. Decreased suspicion with normal ferritin, CRP, LDH. D-dimer elevated; continues on low dose Lovenox r/t anemia. Will obtain CTA of the chest to evaluate for pulmonary embolus. Will increase to full dose Lovenox pending results. Continue supplemental oxygen as needed maintain saturations greater than 89%. As needed nebulizer treatments. Zinc, vitamin D, vitamin C, and melatonin supplementation. Encourage pulmonary toilet. (2) Suspected COVID-19 virus infection Is this a current diagnosis for this admission?: Yes Plan: As above. (3) Anemia Qualifiers: Anemia type: iron deficiency Iron deficiency anemia type: chronic blood loss Qualified Code(s): D50.0 - Iron deficiency anemia secondary to blood loss (chronic) Is this a current diagnosis for this admission?: Yes Plan: Patient was discharged earlier this month with an hemoglobin of 8.9. Hgb 10 -> 7.5-> 8.6-> 7.9-> 8.0 Stool guaiac positive Patient has had iron studies in the past (07/28) which revealed slightly low iron and transferrin with low normal TIBC and normal ferritin Continue FeSO4 325 mg p.o. daily Colonoscopy revealed gastritis and right sided colon inflammation. Continue PPI. (4) Cellulitis of arm, left Is this a current diagnosis for this admission?: Yes Plan: Surgery assistance appreciated S/P I&D of left biceps abscess on 10/01/2019 Blood cultures from 09/25/2019 NG at 5 days Surgical/abscess culture 07/01/2019: w/ MRSA Initially on Vanc; have transitioned to p.o. Bactrim. Day #11/14 of antibiotic therapy. Surgery is signed off; follow-up in the wound care clinic in 7 to 10 days. (5) Moderate protein-calorie malnutrition Is this a current diagnosis for this admission?: Yes Plan: Likely related to patient's illicit drug abuse and overall poor compliance and self care airplane flight attendant is consulted (6) Hyperglycemia due to type 1 diabetes mellitus Is this a current diagnosis for this admission?: Yes Plan: Patient tends to have labile blood sugar Continue to monitor closely and titrate basal insulin as needed (7) Hyponatremia Is this a current diagnosis for this admission?: Yes Plan: Resolved. Monitor (8) Type 1 diabetes mellitus Is this a current diagnosis for this admission?: Yes Plan: Continue basal (glargine) insulin 8 units subcutaneous every 12 hours. Continue FS BS with SSI correction scale Hypoglycemia protocol in place. (9) Leucocytosis Is this a current diagnosis for this admission?: Yes Plan: Leukocytosis resolved Cultures and antibiotics as above. - Time Time Spent with patient: 15-24 minutes Medications reviewed and adjusted accordingly: Yes Anticipated Discharge Disposition: Home with Home Health Anticipated Discharge Timeframe: UTD
--- NOTE | 2019-10-06 23:50 | RADIOLOGY REPORT (SQ) ---
EXAM DESCRIPTION: [facility]: CT CHEST ANGIOGRAPHY WITHOUT THEN WITH IV CONTRAST CLINICAL HISTORY: 53 years Male; hypoxia, elevated d-dimer; TECHNIQUE: CT angiogram of the chest using intravenous contrast. MIP reconstructions were performed. All CT scans at this facility use dose modulation, iterative reconstruction, and/or weight based dosing when appropriate to reduce radiation dose to as low as reasonably achievable. COMPARISON: CT 07/15/2013 FINDINGS: Pulmonary arteries: No filling defects in the central pulmonary arteries. Lungs: Large left pleural effusion 3.7 cm AP thickness. There is nearly complete atelectasis of the left lower lobe, with partial aeration of the superior segment. Partial atelectasis of the left upper lobe, mostly involving the lingula. Mild groundglass densities in the left upper lobe. Right pleural effusion is 2 cm AP thickness. Subsegmental posterior atelectasis in the right lower lobe. Several dense groundglass infiltrates with consolidation scattered in the right lung, both perihilar and peripheral. Mediastinum: No significantly enlarged mediastinal lymph nodes. Thoracic aorta is normal. No pericardial effusion. Bones:No acute bone findings. IMPRESSION: 1. Bilateral pleural effusions and several scattered areas of dense groundglass opacities with consolidation. Overall appearance favors an infectious process such as an atypical pneumonia/viral pneumonia. However, the low-density pleural effusions suggest a component of volume overload/CHF. 2. No CT evidence for pulmonary embolism.
[2019-10-07] MEDS: PANTOPRAZOLE SODIUM 40 MG TABLET.DR PO SCH ×2 (05:02→17:18)
[2019-10-07] MEDS: HYDRALAZINE HCL INJ/PF 20 MG/1 ML SDV IV PRN (05:03)
[2019-10-07 06:22] LABS: HEMATOCRIT 25.1 % (37.9-51.0); HEMOGLOBIN 8.6 g/dL (13.5-17.0); MEAN CORPUSCULAR HEMOGLOBIN 31.1 pg (27.0-33.4); MEAN CORPUSCULAR HGB CONC 34.2 g/dL (32.0-36.0); MEAN CORPUSCULAR VOLUME 91 fl (80-97); PLATELET COUNT 496 10^3/uL (150-450); RED BLOOD COUNT 2.76 10^6/uL (4.35-5.55); RED CELL DISTRIBUTION WIDTH 15.6 % (11.5-14.0); WHITE BLOOD COUNT 8.6 10^3/uL (4.0-10.5)
[2019-10-07 06:47] LABS: ANION GAP 11 (5-19); BLOOD UREA NITROGEN 19 mg/dL (7-20); CALCIUM 8.5 mg/dL (8.4-10.2); CARBON DIOXIDE 32 mmol/L (22-30); CHLORIDE 90 mmol/L (98-107); GLUCOSE 304 mg/dL (75-110); POTASSIUM 4.2 mmol/L (3.6-5.0)
[2019-10-07] MEDS: INSULIN LISPRO 100 UNIT/ML 3 ML VIAL SUBCUT SCH ×4 (09:57→22:26)
[2019-10-07] MEDS: CARVEDILOL 6.25 MG TABLET PO SCH ×2 (09:58→22:26)
[2019-10-07] MEDS: FERROUS SULFATE 325 MG TABLET PO SCH (09:58)
[2019-10-07] MEDS: PAROXETINE HCL 20 MG TABLET PO SCH (09:59)
[2019-10-07] MEDS: FUROSEMIDE INJ/PF 20 MG/2 ML SDV IV SCH (09:59)
[2019-10-07] MEDS: ENOXAPARIN SODIUM INJ 40 MG/0.4 ML DISP.SYRIN SUBCUT SCH (09:59)
[2019-10-07] MEDS: SULFAMETHOXAZOLE/TRIMETHOPRIM 800-160 MG TABLET PO SCH ×2 (10:00→17:18)
[2019-10-07] MEDS: LISINOPRIL 10 MG TABLET PO SCH (10:00)
[2019-10-07] MEDS: INSULIN GLARGINE,HUM.REC.ANLOG 1,000 UNIT/10 ML VIAL SUBCUT SCH ×2 (11:41→22:28)
--- NOTE | 2019-10-07 12:51 | PDOC PROGRESS REPORT ---
Subjective Progress Note for:: 10/07/19 Subjective:: Patient was seen on morning rounds. He was found resting in bed, comfortably, on supplemental oxygen; he is not home O2 dependent. Has no complaints today. States he "feels fine." However, patient is noted to have mild tachypnea and increased work of breathing. He is placed on room air and shortly later desaturates to the low to mid 80s and therefore returned to supplemental oxygen. He further denies fever, chills, fatigue, chest pain, palpitations, orthopnea, cough, abdominal pain, nausea vomiting and diarrhea. He has no questions or concerns at this time. No concerns per nursing. Reason For Visit: CELLULITIS,HYPERGLYCEMIA Physical Exam Vital Signs: Temp Pulse Resp BP Pulse Ox 97.7 F 92 16 101/60 95 10/07/19 07:55 10/07/19 10:18 10/07/19 10:18 10/07/19 07:55 10/07/19 10:18 Intake & Output 10/06/19 10/07/19 10/08/19 06:59 06:59 06:59 Intake Total 996 720 Output Total 1999 2825 Balance -1004 -2105 Weight 57.4 kg 57.4 kg 57.4 kg General appearance: PRESENT: no acute distress, thin, well-developed, well- nourished Head exam: PRESENT: atraumatic, normocephalic Eye exam: PRESENT: conjunctiva pink, EOMI, PERRLA. ABSENT: scleral icterus Mouth exam: PRESENT: moist, tongue midline Respiratory exam: PRESENT: clear to auscultation baldemar, symmetrical, tachypnea, unlabored, other - Supplemental oxygen by nasal cannula. ABSENT: rales, rhonchi, wheezes Cardiovascular exam: PRESENT: RRR. ABSENT: diastolic murmur, rubs, systolic murmur Vascular exam: PRESENT: normal capillary refill Extremities exam: PRESENT: full ROM. ABSENT: calf tenderness, clubbing, pedal edema, +1 edema Neurological exam: PRESENT: alert, awake, oriented to person, oriented to place, oriented to time, oriented to situation, CN II-XII grossly intact. ABSENT: motor sensory deficit Psychiatric exam: PRESENT: normal mood, unusual affect. ABSENT: homicidal ideation, suicidal ideation Skin exam: PRESENT: dry, warm. ABSENT: cyanosis, rash Results Laboratory Results: 10/07/19 05:15 10/07/19 05:15 10/07/19 10/07/19 05:15 05:15 WBC 8.6 RBC 2.76 L Hgb 8.6 L Hct 25.1 L MCV 91 MCH 31.1 MCHC 34.2 RDW 15.6 H Plt Count 496 H Sodium 132.7 L Potassium 4.2 Chloride 90 L Carbon Dioxide 32 H Anion Gap 11 BUN 19 Creatinine 0.93 Est GFR ( Amer) > 60 Glucose 304 H Calcium 8.5 10/05/19 10/07/19 17:56 05:15 NT-Pro-B Natriuret Pep 4350 H 3490 H Impressions: Chest X-Ray 10/05/19 00:00 IMPRESSION: Moderate left and small right pleural effusion. Chest/Abdomen CTA 10/06/19 00:00 IMPRESSION: 1. Bilateral pleural effusions and several scattered areas of dense groundglass opacities with consolidation. Overall appearance favors an infectious process such as an atypical pneumonia/viral pneumonia. However, the low-density pleural effusions suggest a component of volume overload/CHF. 2. No CT evidence for pulmonary embolism. Assessment and Plan - Diagnosis (1) Hypoxia Is this a current diagnosis for this admission?: Yes Plan: Hypoxia continues; though slightly improved. Now low to mid 80s on room air. Patient denies dyspnea, cough, fever, chills. Chest x-ray read as moderate left and small right pleural effusions. On persona l review, he does appear to have some vascular congestion and a questionable interstitial pneumonia on the right. CTA revealed pleural effusions with scattered areas of dense groundglass opacities with consolidation. Normal ferritin, CRP, LDH. proBNP elevated; now trending down. COVID still pending. D-dimer elevated, CTA negative for acute PE; continues on low dose Lovenox r/t anemia. Continue supplemental oxygen as needed maintain saturations greater than 89%. Continue to diurese with furosemide. Consider echocardiogram As needed nebulizer treatments. Zinc, vitamin D, vitamin C, and melatonin supplementation. Encourage pulmonary toilet. (2) Suspected COVID-19 virus infection Is this a current diagnosis for this admission?: Yes Plan: As above. (3) Anemia Qualifiers: Anemia type: iron deficiency Iron deficiency anemia type: chronic blood loss Qualified Code(s): D50.0 - Iron deficiency anemia secondary to blood loss (chronic) Is this a current diagnosis for this admission?: Yes Plan: Patient was discharged earlier this month with an hemoglobin of 8.9. Hgb 10 -> 7.5-> 8.6-> 7.9-> 8.0-> 8.6 Stool guaiac positive Patient has had iron studies in the past (07/28) which revealed slightly low iron and transferrin with low normal TIBC and normal ferritin Continue FeSO4 325 mg p.o. daily Colonoscopy revealed gastritis and right sided colon inflammation. Continue PPI. (4) Cellulitis of arm, left Is this a current diagnosis for this admission?: Yes Plan: Surgery assistance appreciated S/P I&D of left biceps abscess on 10/01/2019 Blood cultures from 09/25/2019 NG at 5 days Surgical/abscess culture 07/01/2019: w/ MRSA Initially on Vanc; have transitioned to p.o. Bactrim. Day #12/14 of antibiotic therapy. Surgery is signed off; follow-up in the wound care clinic in 7 to 10 days. (5) Moderate protein-calorie malnutrition Is this a current diagnosis for this admission?: Yes Plan: Likely related to patient's illicit drug abuse and overall poor compliance and self care sign language interpreter is consulted (6) Hyponatremia Is this a current diagnosis for this admission?: Yes Plan: Resolved. Monitor (7) Type 1 diabetes mellitus Is this a current diagnosis for this admission?: Yes Plan: Continue basal (glargine) insulin 8 units subcutaneous every 12 hours. Continue FS BS with SSI correction scale Hypoglycemia protocol in place. (8) Leucocytosis Is this a current diagnosis for this admission?: Yes Plan: Leukocytosis resolved Cultures and antibiotics as above. - Time Time Spent with patient: 35 or more minutes Medications reviewed and adjusted accordingly: Yes Anticipated Discharge Disposition: Home, Self Care Anticipated Discharge Timeframe: >72 hrs
[2019-10-08] MEDS: PANTOPRAZOLE SODIUM 40 MG TABLET.DR PO SCH ×2 (05:15→17:40)
[2019-10-08 07:00] LABS: ANION GAP 5 (5-19); BLOOD UREA NITROGEN 15 mg/dL (7-20); CALCIUM 7.9 mg/dL (8.4-10.2); CARBON DIOXIDE 37 mmol/L (22-30); CHLORIDE 90 mmol/L (98-107); GLUCOSE 288 mg/dL (75-110); POTASSIUM 4.1 mmol/L (3.6-5.0)
[2019-10-08] MEDS: INSULIN LISPRO 100 UNIT/ML 3 ML VIAL SUBCUT SCH ×4 (08:31→22:05)
[2019-10-08] MEDS: CARVEDILOL 12.5 MG TABLET PO SCH ×2 (08:38→22:04)
[2019-10-08] MEDS ORDERED: CARVEDILOL 6.25 MG TABLET PO SCH (08:45)
[2019-10-08] MEDS: FERROUS SULFATE 325 MG TABLET PO SCH (10:31)
[2019-10-08] MEDS: LISINOPRIL 10 MG TABLET PO SCH (10:31)
[2019-10-08] MEDS: SULFAMETHOXAZOLE/TRIMETHOPRIM 800-160 MG TABLET PO SCH ×2 (10:31→17:39)
[2019-10-08] MEDS: PAROXETINE HCL 20 MG TABLET PO SCH (10:31)
[2019-10-08] MEDS: FUROSEMIDE 40 MG TABLET PO SCH (10:32)
[2019-10-08] MEDS: ENOXAPARIN SODIUM INJ 40 MG/0.4 ML DISP.SYRIN SUBCUT SCH (10:32)
[2019-10-08] MEDS: INSULIN GLARGINE,HUM.REC.ANLOG 1,000 UNIT/10 ML VIAL SUBCUT SCH (10:33)
--- NOTE | 2019-10-08 12:34 | PDOC PROGRESS REPORT ---
Subjective Progress Note for:: 10/08/19 Subjective:: Patient was seen on morning rounds. He was found resting in bed, comfortably, on supplemental oxygen; he is not home O2 dependent. He is, again, placed on room air and shortly later desaturates to the low to mid 80s and therefore returned to supplemental oxygen. Has no complaints today. He further denies fever, chills, fatigue, chest pain, palpitations, orthopnea, cough, abdominal pain, nausea vomiting and diarrhea. He has no questions or concerns at this time. No concerns per nursing. Reason For Visit: CELLULITIS,HYPERGLYCEMIA Physical Exam Vital Signs: Temp Pulse Resp BP Pulse Ox 97.7 F 75 18 148/75 H 95 10/08/19 10:49 10/08/19 10:49 10/08/19 10:49 10/08/19 10:49 10/08/19 10:49 Intake & Output 10/07/19 10/08/19 10/09/19 06:59 06:59 06:59 Intake Total 720 120 Output Total 2825 800 Balance -2105 -680 Weight 57.4 kg 57 kg General appearance: PRESENT: no acute distress, cooperative, well-developed, well-nourished Head exam: PRESENT: atraumatic, normocephalic Eye exam: PRESENT: conjunctiva pink, EOMI, PERRLA. ABSENT: scleral icterus Mouth exam: PRESENT: moist, tongue midline Respiratory exam: PRESENT: clear to auscultation baldemar, symmetrical, unlabored, other - Supplemental oxygen by nasal cannula. ABSENT: rales, rhonchi, wheezes Cardiovascular exam: PRESENT: RRR. ABSENT: diastolic murmur, rubs, systolic murmur Pulses: PRESENT: normal dorsalis pedis pul Vascular exam: PRESENT: normal capillary refill GI/Abdominal exam: PRESENT: normal bowel sounds, soft. ABSENT: distended, guarding, mass, organolmegaly, rebound, tenderness Rectal exam: PRESENT: deferred Extremities exam: PRESENT: full ROM. ABSENT: calf tenderness, clubbing, pedal edema, +1 edema Neurological exam: PRESENT: alert, awake, oriented to person, oriented to place, oriented to time, oriented to situation, CN II-XII grossly intact. ABSENT: motor sensory deficit Psychiatric exam: PRESENT: appropriate affect, normal mood. ABSENT: homicidal ideation, suicidal ideation Skin exam: PRESENT: dry, warm. ABSENT: cyanosis, rash Results Laboratory Results: 10/07/19 05:15 10/08/19 06:15 10/08/19 06:15 Sodium 132.2 L Potassium 4.1 Chloride 90 L Carbon Dioxide 37 H Anion Gap 5 BUN 15 Creatinine 0.82 Est GFR ( Amer) > 60 Glucose 288 H Calcium 7.9 L 10/05/19 10/07/19 17:56 05:15 NT-Pro-B Natriuret Pep 4350 H 3490 H Impressions: Chest X-Ray 10/05/19 00:00 IMPRESSION: Moderate left and small right pleural effusion. Chest/Abdomen CTA 10/06/19 00:00 IMPRESSION: 1. Bilateral pleural effusions and several scattered areas of dense groundglass opacities with consolidation. Overall appearance favors an infectious process such as an atypical pneumonia/viral pneumonia. However, the low-density pleural effusions suggest a component of volume overload/CHF. 2. No CT evidence for pulmonary embolism. Assessment and Plan - Diagnosis (1) Hypoxia Is this a current diagnosis for this admission?: Yes Plan: Hypoxia continues; though slightly improved. Now low to mid 80s on room air. Patient denies dyspnea, cough, fever, chills. Chest x-ray read as moderate left and small right pleural effusions. On personal review, he does appear to have some vascular congestion and a questionable interstitial pneumonia on the right. CTA revealed pleural effusions with scattered areas of dense groundglass opacities with consolidation. Normal ferritin, CRP, LDH. proBNP elevated; now trending down. COVID negative. D-dimer elevated, CTA negative for acute PE Continue supplemental oxygen as needed maintain saturations greater than 89%. Continue to diurese with furosemide. Will obtain echocardiogram As needed nebulizer treatments. Zinc, vitamin D, vitamin C, and melatonin supplementation. Encourage pulmonary toilet. (2) Anemia Qualifiers: Anemia type: iron deficiency Iron deficiency anemia type: chronic blood loss Qualified Code(s): D50.0 - Iron deficiency anemia secondary to blood loss (chronic) Is this a current diagnosis for this admission?: Yes (3) Cellulitis of arm, left Is this a current diagnosis for this admission?: Yes Plan: Surgery assistance appreciated S/P I&D of left biceps abscess on 10/01/2019 Blood cultures from 09/25/2019 NG at 5 days Surgical/abscess culture 07/01/2019: w/ MRSA Initially on Vanc; have transitioned to p.o. Bactrim. Day #13/14 of antibiotic therapy. Surgery is signed off; follow-up in the wound care clinic in 7 to 10 days. (4) Moderate protein-calorie malnutrition Is this a current diagnosis for this admission?: Yes Plan: Likely related to patient's illicit drug abuse and overall poor compliance and self care insulation worker interior surface is consulted (5) Hyponatremia Is this a current diagnosis for this admission?: Yes Plan: Mild/stable; possibly related to diuretic therapy. Daily chemistries. (6) Type 1 diabetes mellitus Is this a current diagnosis for this admission?: Yes Plan: Continue basal (glargine) insulin 9 units subcutaneous every 12 hours. Continue FS BS with SSI correction scale Hypoglycemia protocol in place. Registered dietitian senior health educator consulted. (7) Leucocytosis Is this a current diagnosis for this admission?: Yes Plan: Leukocytosis resolved Cultures and antibiotics as above. (8) Suspected COVID-19 virus infection Is this a current diagnosis for this admission?: Yes Plan: COVID testing negative - Time Time Spent with patient: 25-34 minutes Medications reviewed and adjusted accordingly: Yes Anticipated Discharge Disposition: Home with Home Health Anticipated Discharge Timeframe: UTD
[2019-10-08] MEDS ORDERED: INSULIN GLARGINE,HUM.REC.ANLOG 1,000 UNIT/10 ML VIAL SUBCUT SCH ×2 (22:00)
[2019-10-08] MEDS: HYDRALAZINE HCL INJ/PF 20 MG/1 ML SDV IV PRN (23:35)
[2019-10-09] MEDS: PANTOPRAZOLE SODIUM 40 MG TABLET.DR PO SCH ×2 (06:07→17:03)
[2019-10-09] MEDS: DEXTROSE 50%-WATER 25 GM/50 ML DISP.SYRIN IV PRN (06:26)
[2019-10-09 08:28] LABS: HEMATOCRIT 24.4 % (37.9-51.0); HEMOGLOBIN 8.4 g/dL (13.5-17.0); MEAN CORPUSCULAR HEMOGLOBIN 31.6 pg (27.0-33.4); MEAN CORPUSCULAR HGB CONC 34.5 g/dL (32.0-36.0); MEAN CORPUSCULAR VOLUME 92 fl (80-97); PLATELET COUNT 490 10^3/uL (150-450); RED BLOOD COUNT 2.66 10^6/uL (4.35-5.55); RED CELL DISTRIBUTION WIDTH 15.5 % (11.5-14.0); WHITE BLOOD COUNT 6.3 10^3/uL (4.0-10.5)
[2019-10-09 08:58] LABS: ANION GAP 8 (5-19); BLOOD UREA NITROGEN 14 mg/dL (7-20); CALCIUM 8.6 mg/dL (8.4-10.2); CARBON DIOXIDE 33 mmol/L (22-30); CHLORIDE 93 mmol/L (98-107); GLUCOSE 242 mg/dL (75-110); POTASSIUM 4.5 mmol/L (3.6-5.0)
[2019-10-09] MEDS: FUROSEMIDE 40 MG TABLET PO SCH (09:14)
[2019-10-09] MEDS: PAROXETINE HCL 20 MG TABLET PO SCH (09:14)
[2019-10-09] MEDS: CARVEDILOL 12.5 MG TABLET PO SCH ×2 (09:15→22:00)
[2019-10-09] MEDS: LISINOPRIL 10 MG TABLET PO SCH (09:15)
[2019-10-09] MEDS: SULFAMETHOXAZOLE/TRIMETHOPRIM 800-160 MG TABLET PO SCH ×2 (09:15→18:29)
[2019-10-09] MEDS: ENOXAPARIN SODIUM INJ 40 MG/0.4 ML DISP.SYRIN SUBCUT SCH (09:16)
[2019-10-09] MEDS: INSULIN LISPRO 100 UNIT/ML 3 ML VIAL SUBCUT SCH ×4 (09:16→22:00)
[2019-10-09] MEDS: FERROUS SULFATE 325 MG TABLET PO SCH (09:16)
[2019-10-09] MEDS: INSULIN GLARGINE,HUM.REC.ANLOG 1,000 UNIT/10 ML VIAL SUBCUT SCH ×2 (13:26→22:00)
--- NOTE | 2019-10-09 13:34 | PDOC PROGRESS REPORT ---
Subjective Progress Note for:: 10/09/19 Subjective:: Patient was seen on morning rounds. He was found resting in bed, comfortably, on supplemental oxygen; he is not home O2 dependent. He states he feels fine today, does report some fatigue, but states this is related to the gravity flow irrigator hour. He denies fever, chills, fatigue, chest pain, palpitations, dyspnea, orthopnea, cough, abdominal pain, nausea vomiting and diarrhea. He has no questions or concerns at this time. No concerns per nursing. Reason For Visit: CELLULITIS,HYPERGLYCEMIA Physical Exam Vital Signs: Temp Pulse Resp BP Pulse Ox 98.0 F 78 17 162/81 H 92 10/09/19 07:20 10/09/19 07:20 10/09/19 07:20 10/09/19 07:20 10/09/19 07:20 Intake & Output 10/08/19 10/09/19 10/10/19 06:59 06:59 06:59 Intake Total 120 1200 Output Total 800 850 Balance -680 350 Weight 57 kg 53.5 kg General appearance: PRESENT: no acute distress, cooperative, thin, well- developed Head exam: PRESENT: atraumatic, normocephalic Eye exam: PRESENT: conjunctiva pink, EOMI, PERRLA. ABSENT: scleral icterus Mouth exam: PRESENT: moist, tongue midline Respiratory exam: PRESENT: clear to auscultation baldemar, symmetrical, unlabored, other - supplemental oxygen via NC. ABSENT: rales, rhonchi, wheezes Cardiovascular exam: PRESENT: RRR. ABSENT: diastolic murmur, rubs, systolic murmur Vascular exam: PRESENT: normal capillary refill Extremities exam: PRESENT: full ROM. ABSENT: calf tenderness, clubbing, pedal edema Musculoskeletal exam: PRESENT: ambulatory Neurological exam: PRESENT: alert, awake, oriented to person, oriented to place, oriented to time, oriented to situation, CN II-XII grossly intact. ABSENT: motor sensory deficit Psychiatric exam: PRESENT: normal mood, unusual affect. ABSENT: homicidal ideation, suicidal ideation Skin exam: PRESENT: dry, intact, warm. ABSENT: cyanosis, rash Results Laboratory Results: 10/09/19 08:12 10/09/19 08:12 10/09/19 10/09/19 08:12 08:12 WBC 6.3 RBC 2.66 L Hgb 8.4 L Hct 24.4 L MCV 92 MCH 31.6 MCHC 34.5 RDW 15.5 H Plt Count 490 H Sodium 134.0 L Potassium 4.5 Chloride 93 L Carbon Dioxide 33 H Anion Gap 8 BUN 14 Creatinine 0.92 Est GFR ( Amer) > 60 Glucose 242 H Calcium 8.6 10/05/19 10/07/19 10/09/19 17:56 05:15 08:12 NT-Pro-B Natriuret Pep 4350 H 3490 H 3150 H Impressions: Chest X-Ray 10/05/19 00:00 IMPRESSION: Moderate left and small right pleural effusion. Chest/Abdomen CTA 10/06/19 00:00 IMPRESSION: 1. Bilateral pleural effusions and several scattered areas of dense groundglass opacities with consolidation. Overall appearance favors an infectious process such as an atypical pneumonia/viral pneumonia. However, the low-density pleural effusions suggest a component of volume overload/CHF. 2. No CT evidence for pulmonary embolism. Assessment and Plan - Diagnosis (1) Hypoxia Is this a current diagnosis for this admission?: Yes Plan: Hypoxia continues; though slightly improved. Now low to mid 80s on room air. Patient denies dyspnea, cough, fever, chills. Chest x-ray read as moderate left and small right pleural effusions. On pe rsonal review, he does appear to have some vascular congestion and a questionable interstitial pneumonia on the right. CTA revealed pleural effusions with scattered areas of dense groundglass opacities with consolidation. Normal ferritin, CRP, LDH. proBNP elevated; now trending down. COVID negative. D-dimer elevated, CTA negative for acute PE Echocardiogram pending. Pulmonology services not cotton breeder today; left message w/ Dr. Sun's/Dr. Mcgrath's office requesting phone consult. Will obtain thoracentesis w/ cytology and cultures. Continue supplemental oxygen as needed maintain saturations greater than 89%. Continue to diurese with furosemide. As needed nebulizer treatments. Zinc, vitamin D, vitamin C, and melatonin supplementation. Encourage pulmonary toilet. (2) Anemia Qualifiers: Anemia type: iron deficiency Iron deficiency anemia type: chronic blood loss Qualified Code(s): D50.0 - Iron deficiency anemia secondary to blood loss (chronic) Is this a current diagnosis for this admission?: Yes Plan: Patient was discharged earlier this month with an hemoglobin of 8.9. Hgb stable ~8.4 Stool guaiac positive Patient has had iron studies in the past (07/28) which revealed slightly low iron and transferrin with low normal TIBC and normal ferritin Continue FeSO4 325 mg p.o. daily Colonoscopy revealed gastritis and right sided colon inflammation. Continue PPI. (3) Cellulitis of arm, left Is this a current diagnosis for this admission?: Yes Plan: Surgery assistance appreciated S/P I&D of left biceps abscess on 10/01/2019 Blood cultures from 09/25/2019 NG at 5 days Surgical/abscess culture 07/01/2019: w/ MRSA Initially on Vanc; have transitioned to p.o. Bactrim. Day #14/14 of antibiotic therapy. Surgery is signed off; follow-up in the wound care clinic in 7 to 10 days. (4) Moderate protein-calorie malnutrition Is this a current diagnosis for this admission?: Yes Plan: Likely related to patient's illicit drug abuse and overall poor compliance and self care cooker syrup is consulted (5) Hyponatremia Is this a current diagnosis for this admission?: Yes Plan: Mild/stable; possibly related to diuretic therapy. Daily chemistries. (6) Type 1 diabetes mellitus Is this a current diagnosis for this admission?: Yes Plan: Continues to have AM hypoglycemia; Basal (glargine) insulin adjusted; 6 units qHS, 8 units QAM Continue FS BS with SSI correction scale Hypoglycemia protocol in place. Registered dietitian family educator consulted. (7) Leucocytosis Is this a current diagnosis for this admission?: Yes Plan: Leukocytosis resolved Cultures and antibiotics as above. (8) Suspected COVID-19 virus infection Is this a current diagnosis for this admission?: Yes Plan: COVID testing negative - Time Time Spent with patient: 25-34 minutes Medications reviewed and adjusted accordingly: Yes Anticipated Discharge Disposition: Home with Home Health Anticipated Discharge Timeframe: within 72 hours
[2019-10-09 15:48] LABS: INTERNATIONAL RATION (INR) 0.92; PROTHROMBIN TIME 12.6 SEC (11.4-15.4)
--- NOTE | 2019-10-09 20:39 | XCELERA REPORT ---
[address] [address] Transthoracic Echocardiogram Report Name: AMPARO PHAN Age: 53 yrs Gender: Male : 1965 Patient Status: Inpatient Patient Location: [address] [place] [address] Study Date: 10/09/2019 07:00 PM Height: 65 in Weight: 125 lb BSA: 1.6 m2 Procedure: A complete two-dimensional transthoracic echocardiogram was performed (2D, M-mode, spectral and color flow Doppler). The study was technically adequate with some images being suboptimal in quality. Reason For Study: chf, hypoxia, elevated bnp Ordering Physician: ROXANA THOMAS Performed By: Yessenia Parmar Interpretation Summary The left ventricle is normal in size. There is mild concentric left ventricular hypertrophy. Left ventricular systolic function is normal. The Ejection Fraction estimate is 50-55%. Doppler measurements suggest normal left ventricular diastolic function. The left ventricular wall motion is normal. Mild MR, trace AI, mild to moderate TR, mild PI. Moderate left pleural effusion. When compared to a prior report dated JUL 27: -LVSF is decreased. -TR is now mild to moderate. -Pulmonay hypertension has worsened and is now estimated between 48 and 53 mmHg. -There is mild concentric LVH. MMode/2D Measurements & Calculations RVDd: 2.7 cm LVIDd: 4.3 cm FS: 29.0 % Ao root diam: 3.1 cm IVSd: 1.2 cm LVIDs: 3.0 cm EDV(Teich): Ao root area: 82.8 ml LVPWd: 1.2 cm 7.7 cm2 ESV(Teich): LA dimension: 3.4 cm 36.4 ml EF(Teich): 56.1 % LVLd ap4: 6.7 cm SV(MOD-sp4): EDV(MOD-sp4): 57.0 ml 96.0 ml LVLs ap4: 5.6 cm ESV(MOD-sp4): 39.0 ml EF(MOD-sp4): 59.4 % Doppler Measurements & Calculations MV E max monika: MV P1/2t max monika: Ao V2 max: LV V1 max P.3 cm/sec 110.9 cm/sec 101.8 cm/sec 1.8 mmHg MV A max monika: MV P1/2t: 81.2 msec Ao max PG: LV V1 max: 63.1 cm/sec 4.1 mmHg 66.5 cm/sec MVA(P1/2t): 2.7 cm2 MV E/A: 1.5 MV dec slope: 400.0 cm/sec2 MV dec time: 0.19 sec PA V2 max: PI end-d monika: TR max monika: MV P1/2t-pr_phl: 62.7 cm/sec 169.7 cm/sec 328.8 cm/sec 81.2 msec PA max PG: TR max P.6 mmHg 43.2 mmHg Left Ventricle The left ventricle is normal in size. There is mild concentric left ventricular hypertrophy. Left ventricular systolic function is normal. The Ejection Fraction estimate is 50-55%. Doppler measurements suggest normal left ventricular diastolic function. The left ventricular wall motion is normal. Right Ventricle The right ventricle is grossly normal size. There is mild right ventricular hypertrophy. The right ventricular systolic function is normal. Atria The right atrium is normal. The left atrial size is normal. The interatrial septum is intact with no evidence for an atrial septal defect. Mitral Valve The mitral valve is grossly normal. There is no evidence of mitral valve prolapse. There is no mitral valve stenosis. There is a mild amount of mitral regurgitation. Aortic Valve The aortic valve is grossly normal. There is no aortic valvular vegetation. There is no aortic valve stenosis. There is a trace amount of aortic regurgitation. Tricuspid Valve The tricuspid valve is not well visualized, but is grossly normal. There is no tricuspid valve prolapse. There is no tricuspid stenosis. There is a mild to moderate amount of tricuspid regurgitation. Best estimated RVSP is approximately 48-53 mm/Hg. Pulmonic Valve The pulmonic valve is not well seen, but is grossly normal. There is no vegetation on the pulmonic valve. There is no pulmonic valvular stenosis. There is a mild amount of pulmonic regurgitation. Effusions There is no pericardial effusion. Moderate size left pleural effusion. : ROXANA THOMAS Antonio
[2019-10-09] MEDS: HYDRALAZINE HCL INJ/PF 20 MG/1 ML SDV IV PRN (20:42)
[2019-10-10] MEDS: PANTOPRAZOLE SODIUM 40 MG TABLET.DR PO SCH ×2 (06:35→17:00)
[2019-10-10] MEDS: INSULIN LISPRO 100 UNIT/ML 3 ML VIAL SUBCUT SCH ×4 (07:01→22:11)
[2019-10-10 07:36] LABS: HEMATOCRIT 25.7 % (37.9-51.0); HEMOGLOBIN 8.4 g/dL (13.5-17.0); MEAN CORPUSCULAR HEMOGLOBIN 30.4 pg (27.0-33.4); MEAN CORPUSCULAR HGB CONC 32.9 g/dL (32.0-36.0); MEAN CORPUSCULAR VOLUME 92 fl (80-97); PLATELET COUNT 469 10^3/uL (150-450); RED BLOOD COUNT 2.78 10^6/uL (4.35-5.55); RED CELL DISTRIBUTION WIDTH 15.8 % (11.5-14.0); WHITE BLOOD COUNT 6.4 10^3/uL (4.0-10.5)
[2019-10-10 07:41] LABS: INTERNATIONAL RATION (INR) 0.85; PROTHROMBIN TIME 11.9 SEC (11.4-15.4)
[2019-10-10 07:51] LABS: ANION GAP 7 (5-19); BLOOD UREA NITROGEN 21 mg/dL (7-20); CALCIUM 8.8 mg/dL (8.4-10.2); CARBON DIOXIDE 33 mmol/L (22-30); CHLORIDE 92 mmol/L (98-107); GLUCOSE 340 mg/dL (75-110); POTASSIUM 4.3 mmol/L (3.6-5.0)
[2019-10-10 08:22] LABS: PLATELET COUNT 469 10^3/uL (150-450)
[2019-10-10] MEDS: LISINOPRIL 10 MG TABLET PO SCH (09:23)
[2019-10-10] MEDS: CARVEDILOL 12.5 MG TABLET PO SCH ×2 (09:24→22:08)
[2019-10-10] MEDS: ENOXAPARIN SODIUM INJ 40 MG/0.4 ML DISP.SYRIN SUBCUT SCH (09:24)
[2019-10-10] MEDS: SULFAMETHOXAZOLE/TRIMETHOPRIM 800-160 MG TABLET PO SCH ×2 (09:24→17:00)
[2019-10-10] MEDS: PAROXETINE HCL 20 MG TABLET PO SCH (09:24)
[2019-10-10] MEDS: FUROSEMIDE 40 MG TABLET PO SCH (09:24)
[2019-10-10] MEDS: FERROUS SULFATE 325 MG TABLET PO SCH (09:24)
[2019-10-10] MEDS: INSULIN GLARGINE,HUM.REC.ANLOG 1,000 UNIT/10 ML VIAL SUBCUT SCH ×2 (09:25→22:13)
--- NOTE | 2019-10-10 12:14 | RADIOLOGY REPORT (SQ) ---
EXAM DESCRIPTION: CHEST SINGLE VIEW IMAGES COMPLETED DATE/TIME: 10/10/2019 12:06 pm REASON FOR STUDY: S/P LT THORA COMPARISON: 10/05/2019. EXAM PARAMETERS: NUMBER OF VIEWS: One view. TECHNIQUE: Single frontal radiographic view of the chest acquired. RADIATION DOSE: NA LIMITATIONS: None. FINDINGS: LUNGS AND PLEURA: Interval decrease in the left pleural effusion. No pneumothorax. Right lung unchanged. MEDIASTINUM AND HILAR STRUCTURES: No masses. Contour normal. HEART AND VASCULAR STRUCTURES: Heart normal in size. Normal vasculature. BONES: No acute findings. HARDWARE: None in the chest. OTHER: No other significant finding. IMPRESSION: NO PNEUMOTHORAX FOLLOWING LEFT THORACENTESIS. TECHNICAL DOCUMENTATION: JOB ID: [id number] 2010 [employer]- All Rights Reserved Reading location - IP/workstation name: [email or web address]
--- NOTE | 2019-10-10 12:42 | RADIOLOGY REPORT (SQ) ---
EXAM DESCRIPTION: U/S THORACENTESIS WITH IMAGING IMAGES COMPLETED DATE/TIME: 10/10/2019 12:25 pm REASON FOR STUDY: pleural effusion COMPARISON: CT chest 10/06/2019 RADIATION DOSE: None LIMITATIONS: None. PROCEDURE: Procedure, risks, benefit, and alternative explained to patient who then gave written con sent. The posterior left chest wall was marked using ultrasound guidance. A time-out was called for correct marking verification. Chest prepped and draped using sterile technique. Local anesthesia ac hieved using 5 ml of 1% lidocaine injection. A 6fr Safe-T- Centesis set was introduced into the left pleural space. Fluid was aspirated. The catheter was removed and the entry site was covered with s terile bandage. No immediate complications noted. Images acquired during the procedure were stored on PACS. FINDINGS: ENTRY SITE: posterior left chest. FLUID VOLUME: 850 mL FLUID ANALYSIS: Light straw-colored fluid OTHER: Fluid sent to the lab for testing. IMPRESSION: SUCCESSFUL THORACENTESIS USING ULTRASOUND GUIDANCE. COMMENT: Patient medication list reviewed: Yes- Quality ID# [id number]:Eligible professional attests to doc umenting in the medical record they obtained, updated, or reviewed the patient's current medications. TECHNICAL DOCUMENTATION: JOB ID: [id number] 2010 [employer]- All Rights Reserved Reading location - IP/workstation name: [email or web address] [id number]
[2019-10-10 13:02] LABS: FLUID SOURCE LUNG; FLUID TYPE PLEURAL
[2019-10-10 13:03] LABS: FLUID APPEARANCE CLEAR; FLUID COLOR STRAW; FLUID VISCOSITY LIQUID
--- NOTE | 2019-10-10 15:27 | RADIOLOGY REPORT (SQ) ---
EXAM DESCRIPTION: CHEST SINGLE VIEW IMAGES COMPLETED DATE/TIME: 10/10/2019 3:18 pm REASON FOR STUDY: S/P LT THORA COMPARISON: 10/10/2019 at 1203 hours. EXAM PARAMETERS: NUMBER OF VIEWS: One view. TECHNIQUE: Single frontal radiographic view of the chest acquired. RADIATION DOSE: NA LIMITATIONS: None. FINDINGS: LUNGS AND PLEURA: Faint basilar densities. Small pleural effusions. No pneumothorax. MEDIASTINUM AND HILAR STRUCTURES: No masses. Contour normal. HEART AND VASCULAR STRUCTURES: Heart normal in size. Normal vasculature. BONES: No acute findings. HARDWARE: None in the chest. OTHER: No other significant finding. IMPRESSION: NO PNEUMOTHORAX FOLLOWING THORACENTESIS. TECHNICAL DOCUMENTATION: JOB ID: [id number] 2010 [employer]- All Rights Reserved Reading location - IP/workstation name: [email or web address]
[2019-10-10] MEDS: HYDRALAZINE HCL INJ/PF 20 MG/1 ML SDV IV PRN (20:22)
--- NOTE | 2019-10-10 20:46 | PDOC PROGRESS REPORT ---
Subjective Progress Note for:: 10/10/19 Subjective:: He was seen and examined at bedside. Resting comfortably denies any chest pain shortness of breath, no fever no nausea or vomiting. Afebrile good appetite Reason For Visit: CELLULITIS,HYPERGLYCEMIA Physical Exam Vital Signs: Temp Pulse Resp BP Pulse Ox 98.0 F 72 17 176/95 H 96 10/10/19 19:53 10/10/19 19:53 10/10/19 19:53 10/10/19 19:53 10/10/19 19:53 Intake & Output 10/09/19 10/10/19 10/11/19 06:59 06:59 06:59 Intake Total 1200 1256 520 Output Total 850 1100 Balance 350 156 520 Weight 53.5 kg 53.6 kg 53.6 kg General appearance: PRESENT: no acute distress, cooperative Head exam: PRESENT: atraumatic, normocephalic Eye exam: PRESENT: EOMI, PERRLA Ear exam: PRESENT: normal external ear exam Mouth exam: PRESENT: moist Neck exam: PRESENT: full ROM. ABSENT: JVD Respiratory exam: PRESENT: clear to auscultation baldemar, symmetrical, unlabored. ABSENT: rales, tachypnea, wheezes Cardiovascular exam: PRESENT: RRR, +S1, +S2. ABSENT: diastolic murmur, systolic murmur, tachycardia Pulses: PRESENT: +2 pedal pulses bilateral Vascular exam: PRESENT: normal capillary refill GI/Abdominal exam: PRESENT: normal bowel sounds, soft. ABSENT: distended, tenderness Rectal exam: PRESENT: deferred Musculoskeletal exam: PRESENT: ambulatory, full ROM Neurological exam: PRESENT: alert, awake, oriented to person, oriented to place Psychiatric exam: PRESENT: normal mood Results Laboratory Results: 10/10/19 07:20 10/10/19 07:20 10/10/19 10/10/19 10/10/19 07:20 07:20 07:20 WBC 6.4 RBC 2.78 L Hgb 8.4 L Hct 25.7 L MCV 92 MCH 30.4 MCHC 32.9 RDW 15.8 H Plt Count 469 H 469 H Sodium 131.5 L Potassium 4.3 Chloride 92 L Carbon Dioxide 33 H Anion Gap 7 BUN 21 H Creatinine 1.23 Est GFR ( Amer) > 60 Glucose 340 H Calcium 8.8 Fluid Type Fluid Source Fluid Color Fluid Appearance Fluid Viscosity Fluid WBC Fluid RBC 10/10/19 11:50 WBC RBC Hgb Hct MCV MCH MCHC RDW Plt Count Sodium Potassium Chloride Carbon Dioxide Anion Gap BUN Creatinine Est GFR ( Amer) Glucose Calcium Fluid Type PLEURAL Fluid Source LUNG Fluid Color STRAW Fluid Appearance CLEAR Fluid Viscosity LIQUID Fluid WBC 151 Fluid RBC 3 10/05/19 10/07/19 10/09/19 17:56 05:15 08:12 NT-Pro-B Natriuret Pep 4350 H 3490 H 3150 H Impressions: Chest/Abdomen CTA 10/06/19 00:00 IMPRESSION: 1. Bilateral pleural effusions and several scattered areas of dense groundglass opacities with consolidation. Overall appearance favors an infectious process such as an atypical pneumonia/viral pneumonia. However, the low-density pleural effusions suggest a component of volume overload/CHF. 2. No CT evidence for pulmonary embolism. Thoracentesis Ultrasound 10/10/19 00:00 IMPRESSION: SUCCESSFUL THORACENTESIS USING ULTRASOUND GUIDANCE. Chest X-Ray 10/10/19 14:00 IMPRESSION: NO PNEUMOTHORAX FOLLOWING THORACENTESIS. Assessment and Plan - Diagnosis (1) Hypoxia Is this a current diagnosis for this admission?: Yes Plan: -Resolved. Saturating well on room air -CT chest on admission showed pleural effusion with scattered areas of dense groundglass opacities with consolidation -Status post thoracentesis drained 850 mL of fluid -Fluid sent for cytology and cultures -WBC count has been stable, no fevers (2) Cellulitis of arm, left Is this a current diagnosis for this admission?: Yes Plan: - S/P I&D of left biceps abscess on 10/01/2019 - Blood cultures from 09/25/2019 NG at 5 days -Surgical/abscess culture 07/01/2019: w/ MRSA - Initially on Vanc; have transitioned to p.o. Bactrim. Day #14/14 of antibiotic therapy. -Echo mild concentric LVH, action fraction 50 to 55%, no mention of vegetation, moderate left pleural effusion Surgery is signed off; follow-up in the wound care clinic in 7 to 10 days. (3) Hyponatremia Is this a current diagnosis for this admission?: Yes Plan: Mild/stable; possibly related to diuretic therapy. Daily chemistries. (4) Diabetes mellitus Qualifiers: Diabetes mellitus type: type 2 Diabetes mellitus custodial insulin use: with middle or intermediate school principal use Diabetes mellitus complication status: with hyperglycemia Qualified Code(s): E11.65 - Type 2 diabetes mellitus with hyperglycemia; Z79.4 - watermelon harvesting supervisor (current) use of insulin Is this a current diagnosis for this admission?: Yes Plan: -Currently on glargine 6 units at bedtime, 8 u qam, - continue SSI - Acccheck - hypoglycemia protocol - farmer cash grain consulted (5) Anemia Qualifiers: Anemia type: iron deficiency Iron deficiency anemia type: chronic blood loss Qualified Code(s): D50.0 - Iron deficiency anemia secondary to blood loss (chronic) Is this a current diagnosis for this admission?: Yes Plan: Patient was discharged earlier this month with an hemoglobin of 8.9. Hgb stable ~8.4 Stool guaiac positive Patient has had iron studies in the past (07/28) which revealed slightly low iron and transferrin with low normal TIBC and normal ferritin Continue FeSO4 325 mg p.o. daily Colonoscopy revealed gastritis and right sided colon inflammation. Continue PPI. - Time Time Spent with patient: 25-34 minutes Medications reviewed and adjusted accordingly: Yes Anticipated Discharge Disposition: to be determined Anticipated Discharge Timeframe: to be determined
[2019-10-11] MEDS: PANTOPRAZOLE SODIUM 40 MG TABLET.DR PO SCH ×2 (06:00→17:07)
[2019-10-11 06:36] LABS: ABSOLUTE BASOPHILS # (AUTO) 0.1 10^3/uL (0.0-0.2); ABSOLUTE EOSINOPHILS # (AUTO) 0.2 10^3/uL (0.0-0.6); ABSOLUTE LYMPHOCYTES (AUTO) 0.9 10^3/uL (0.5-4.7); ABSOLUTE MONOCYTES (AUTO) 0.5 10^3/uL (0.1-1.4); BASOPHILS % (AUTO) 1.8 % (0-2); EOSINOPHILS % (AUTO) 3.4 % (0-6); HEMATOCRIT 24.9 % (37.9-51.0); HEMOGLOBIN 8.4 g/dL (13.5-17.0); LYMPHOCYTES % (AUTO) 15.6 % (13-45); MEAN CORPUSCULAR HEMOGLOBIN 30.5 pg (27.0-33.4); MEAN CORPUSCULAR HGB CONC 33.7 g/dL (32.0-36.0); MEAN CORPUSCULAR VOLUME 90 fl (80-97); PLATELET COUNT 407 10^3/uL (150-450); RED BLOOD COUNT 2.76 10^6/uL (4.35-5.55); RED CELL DISTRIBUTION WIDTH 15.9 % (11.5-14.0); SEGMENTED NEUTROPHILS % (AUTO) 70.2 % (42-78); TOTAL CELLS COUNTED % (AUTO) 100 %; WHITE BLOOD COUNT 5.8 10^3/uL (4.0-10.5)
[2019-10-11 06:54] LABS: ALKALINE PHOSPHATASE 124 U/L (38-126); ANION GAP 5 (5-19); ASPARTATE AMINO TRANSFERASE 17 U/L (17-59); BILIRUBIN,DIRECT 0.3 mg/dL (0.0-0.4); BILIRUBIN,TOTAL 0.4 mg/dL (0.2-1.3); BLOOD UREA NITROGEN 21 mg/dL (7-20); CALCIUM 8.8 mg/dL (8.4-10.2); CARBON DIOXIDE 34 mmol/L (22-30); CHLORIDE 91 mmol/L (98-107); GLUCOSE 394 mg/dL (75-110); POTASSIUM 4.7 mmol/L (3.6-5.0); TOTAL PROTEIN 5.8 g/dL (6.3-8.2)
[2019-10-11] MEDS: INSULIN LISPRO 100 UNIT/ML 3 ML VIAL SUBCUT SCH ×4 (08:23→23:03)
[2019-10-11] MEDS: PAROXETINE HCL 20 MG TABLET PO SCH (09:07)
[2019-10-11] MEDS: CARVEDILOL 12.5 MG TABLET PO SCH ×2 (09:08→23:16)
[2019-10-11] MEDS: FERROUS SULFATE 325 MG TABLET PO SCH (09:08)
[2019-10-11] MEDS: FUROSEMIDE 40 MG TABLET PO SCH (09:08)
[2019-10-11] MEDS: LISINOPRIL 10 MG TABLET PO SCH (09:09)
[2019-10-11] MEDS: INSULIN GLARGINE,HUM.REC.ANLOG 1,000 UNIT/10 ML VIAL SUBCUT SCH (09:09)
[2019-10-11] MEDS: ENOXAPARIN SODIUM INJ 40 MG/0.4 ML DISP.SYRIN SUBCUT SCH (09:11)
--- NOTE | 2019-10-11 21:40 | PDOC PROGRESS REPORT ---
Subjective Progress Note for:: 10/11/19 Subjective:: He was seen and examined at bedside. He appears comfortable in bed. Denies any chest pain shortness of breath, appetite is good. He was able to be weaned off oxygen completely today. Awaiting results of pleural fluid analysis Reason For Visit: CELLULITIS,HYPERGLYCEMIA Physical Exam Vital Signs: Temp Pulse Resp BP Pulse Ox 98.4 F 64 16 177/95 H 93 10/11/19 20:19 10/11/19 20:19 10/11/19 20:19 10/11/19 20:19 10/11/19 20:19 Intake & Output 10/10/19 10/11/19 10/12/19 06:59 06:59 06:59 Intake Total 9117 165 5531 Output Total 1100 Balance 417 972 2984 Weight 53.6 kg 53.6 kg General appearance: PRESENT: no acute distress, cooperative Head exam: PRESENT: atraumatic, normocephalic Eye exam: PRESENT: EOMI, PERRLA Mouth exam: PRESENT: moist Neck exam: PRESENT: full ROM. ABSENT: JVD Respiratory exam: PRESENT: clear to auscultation baldemar, symmetrical, unlabored. ABSENT: crackles, rales, wheezes Cardiovascular exam: PRESENT: RRR, +S1, +S2 Pulses: PRESENT: +2 pedal pulses bilateral Vascular exam: PRESENT: pallor GI/Abdominal exam: PRESENT: normal bowel sounds, soft. ABSENT: distended, tenderness Extremities exam: PRESENT: full ROM Musculoskeletal exam: PRESENT: full ROM Psychiatric exam: PRESENT: normal mood Skin exam: PRESENT: normal color Results Laboratory Results: 10/11/19 06:07 10/11/19 06:07 10/11/19 10/11/19 06:07 06:07 WBC 5.8 RBC 2.76 L Hgb 8.4 L Hct 24.9 L MCV 90 MCH 30.5 MCHC 33.7 RDW 15.9 H Plt Count 407 Seg Neutrophils % 70.2 Sodium 130.4 L Potassium 4.7 Chloride 91 L Carbon Dioxide 34 H Anion Gap 5 BUN 21 H Creatinine 1.12 Est GFR ( Amer) > 60 Glucose 394 H Calcium 8.8 Total Bilirubin 0.4 AST 17 Alkaline Phosphatase 124 Total Protein 5.8 L Albumin 3.0 L 10/05/19 10/07/19 10/09/19 17:56 05:15 08:12 NT-Pro-B Natriuret Pep 4350 H 3490 H 3150 H Impressions: Chest/Abdomen CTA 10/06/19 00:00 IMPRESSION: 1. Bilateral pleural effusions and several scattered areas of dense groundglass opacities with consolidation. Overall appearance favors an infectious process such as an atypical pneumonia/viral pneumonia. However, the low-density pleural effusions suggest a component of volume overload/CHF. 2. No CT evidence for pulmonary embolism. Thoracentesis Ultrasound 10/10/19 00:00 IMPRESSION: SUCCESSFUL THORACENTESIS USING ULTRASOUND GUIDANCE. Chest X-Ray 10/10/19 14:00 IMPRESSION: NO PNEUMOTHORAX FOLLOWING THORACENTESIS. Assessment and Plan - Diagnosis (1) Hypoxia Is this a current diagnosis for this admission?: Yes Plan: -Resolved. Saturating well on room air -CT chest on admission showed pleural effusion with scattered areas of dense groundglass opacities with consolidation -Status post thoracentesis drained 850 mL of fluid -Doing result of thoracentesis fluid analysis -Fluid sent for cytology and cultures -WBC count has been stable, no fevers (2) Cellulitis of arm, left Is this a current diagnosis for this admission?: Yes Plan: - S/P I&D of left biceps abscess on 10/01/2019 - Blood cultures from 09/25/2019 NG at 5 days -Surgical/abscess culture 07/01/2019: w/ MRSA - Initially on Vanc; have transitioned to p.o. Bactrim. Day #14/14 of antibiotic therapy. -Echo mild concentric LVH, action fraction 50 to 55%, no mention of vegetation, moderate left pleural effusion Surgery is signed off; follow-up in the wound care clinic in 7 to 10 days. (3) Hyponatremia Is this a current diagnosis for this admission?: Yes Plan: - Mild/stable 130. possibly related to diuretic therapy. - lasix held for tomorrow - Daily chemistries. (4) Diabetes mellitus Qualifiers: Diabetes mellitus type: type 2 Diabetes mellitus senior care insulin use: with senior care use Diabetes mellitus complication status: with hyperglycemia Qualified Code(s): E11.65 - Type 2 diabetes mellitus with hyperglycemia; Z79.4 - halfway (current) use of insulin Is this a current diagnosis for this admission?: Yes Plan: -Blood glucose has been very labile -Total insulin use calculated for 24 hours. -Long-acting insulin changed to 10 units twice daily, with 5 units with meals, - continue SSI - Acccheck - hypoglycemia protocol - clinical educator consulted (5) Anemia Qualifiers: Anemia type: iron deficiency Iron deficiency anemia type: chronic blood loss Qualified Code(s): D50.0 - Iron deficiency anemia secondary to blood loss (chronic) Is this a current diagnosis for this admission?: Yes Plan: Patient was discharged earlier this month with an hemoglobin of 8.9. Hgb stable ~8.4 Stool guaiac positive Patient has had iron studies in the past (07/28) which revealed slightly low iron and transferrin with low normal TIBC and normal ferritin Continue FeSO4 325 mg p.o. daily Colonoscopy revealed gastritis and right sided colon inflammation. Continue PPI. - Time Time Spent with patient: 15-24 minutes Anticipated Discharge Disposition: to be determined Anticipated Discharge Timeframe: to be determined
[2019-10-11] MEDS ORDERED: INSULIN GLARGINE,HUM.REC.ANLOG 1,000 UNIT/10 ML VIAL (PYX) SUBCUT ONE ×2 (22:00→22:58)
[2019-10-11] MEDS ORDERED: INSULIN GLARGINE,HUM.REC.ANLOG 1,000 UNIT/10 ML VIAL SUBCUT SCH (22:00)
[2019-10-11] MEDS: HYDRALAZINE HCL INJ/PF 20 MG/1 ML SDV IV PRN (23:17)
[2019-10-12] MEDS: PANTOPRAZOLE SODIUM 40 MG TABLET.DR PO SCH ×2 (05:00→17:24)
[2019-10-12 05:50] LABS: HEMATOCRIT 25.6 % (37.9-51.0); HEMOGLOBIN 8.8 g/dL (13.5-17.0); MEAN CORPUSCULAR HEMOGLOBIN 31.1 pg (27.0-33.4); MEAN CORPUSCULAR HGB CONC 34.3 g/dL (32.0-36.0); MEAN CORPUSCULAR VOLUME 91 fl (80-97); PLATELET COUNT 391 10^3/uL (150-450); RED BLOOD COUNT 2.83 10^6/uL (4.35-5.55); RED CELL DISTRIBUTION WIDTH 15.6 % (11.5-14.0); WHITE BLOOD COUNT 4.9 10^3/uL (4.0-10.5)
[2019-10-12 06:03] LABS: ALBUMIN 3.2 g/dL (3.5-5.0); ALKALINE PHOSPHATASE 125 U/L (38-126); ANION GAP 7 (5-19); ASPARTATE AMINO TRANSFERASE 23 U/L (17-59); BILIRUBIN,DIRECT 0.3 mg/dL (0.0-0.4); BILIRUBIN,TOTAL 0.3 mg/dL (0.2-1.3); BLOOD UREA NITROGEN 24 mg/dL (7-20); CALCIUM 9.3 mg/dL (8.4-10.2); CARBON DIOXIDE 32 mmol/L (22-30); CHLORIDE 93 mmol/L (98-107); GLUCOSE 202 mg/dL (75-110); POTASSIUM 4.4 mmol/L (3.6-5.0); TOTAL PROTEIN 6.5 g/dL (6.3-8.2)
--- NOTE | 2019-10-12 06:34 | PDOC DISCHARGE SUMMARY ---
Impression - Admit/DC Date/PCP Admission Date/Primary Care Provider: 09/25/19 22:57 ALFONSO OVALLE PA-C Discharge Date: 10/12/19 - Discharge Diagnosis (1) Hypoxia Is this a current diagnosis for this admission?: Yes (2) Cellulitis of arm, left Is this a current diagnosis for this admission?: Yes (3) Hyponatremia Is this a current diagnosis for this admission?: Yes (4) Diabetes mellitus Is this a current diagnosis for this admission?: Yes (5) Anemia Is this a current diagnosis for this admission?: Yes - Additional Information Resuscitation Status: Full Code Discharge Diet: Diabetic Discharge Activity: Activity As Tolerated, Balance Activity w/Rest, Slowly Increase Activity Referrals: WOUND CARE [Outside] (Follow up with the Wound Care Clinic within 1 week LEFT MESSAGE FOR OFFICE TO CONTACT PATIENT FOR FOLLOW UP APPOINTMENT) ALFONSO OVALLE PA-C [Primary Care Provider] - (Follow up within 1 week.) Prescriptions: Ferrous Sulfate [Feosol 325 mg Tablet] 325 mg PO DAILY #30 tablet Pantoprazole Sodium [Protonix [address] Tablet] 40 mg PO BID@0600,1700 #60 tablet. Home Medications: Carvedilol [Coreg 6.25 mg Tablet] 6.25 mg PO Q12 #60 tablet 08/09/19 Paroxetine HCl [Paxil] 10 mg PO DAILY 09/13/19 Lisinopril [Prinivil 5 mg Tablet] 10 mg PO DAILY 30 Days #30 tablet 09/19/19 Insulin Lispro [Humalog Kwikpen U-100] 15 unit SQ AC 09/26/19 Acetaminophen [Tylenol 325 mg Tablet] 650 mg PO Q4HP PRN tablet 10/05/19 Ferrous Sulfate [Feosol 325 mg Tablet] 325 mg PO DAILY #30 tablet 10/05/19 Pantoprazole Sodium [Protonix [address] Tablet] 40 mg PO BID@0600,1700 #60 tablet. 10/05/19 Insulin Glargine,Hum.rec.anlog [Lantus Insulin 100 Unit/1 ml 10 ml] 20 unit DAWN BCUT Q12 30 Days #14 vial 10/12/19 History of Present Illiness History of Present Illness: AMPARO PHAN is a 53 year old male, past medical history of insulin- dependent diabetes, cocaine abuse was admitted on September 24 due to elevated blood sugars and cellulitis of the left arm. He was just discharged from the hospital a week prior to current admission due to DKA and has not been checking his blood sugars at home. He had a place on his left arm where his IV was that he kept picking and mashing which was noted to be swollen upon admission. He w as initially started on vancomycin and Zosyn. Basal bolus insulin was started as well. Hospital Course Hospital Course: Patient was admitted to the medical floor and was started on Vanco and Zosyn, basal bolus insulin was started as well. He continued to improve with resolution of leukocytosis with manageable blood glucose levels. On the sixth day of hospitalization patient was noted to have a firm induration in the left antecubital fossa, surgery was consulted. Left arm abscess was drained on the same day by surgery. Vancomycin was continued. He was also evaluated for iron deficiency anemia treated with oral ferrous sulfate. GI was consulted on the eighth day of hospitalization for evaluation of anemia. October 03 patient underwent EGD and colonoscopy no active bleeding source noted, findings are gastritis. It was switched to p.o. Bactrim for left arm cellulitis . On October 04 10-day of hospitalization patient was noted to be hypoxic to 75% room air, improved with nasal cannula oxygen support, chest x-ray revealed moderate left and small right pleural effusions, COVID testing negative. CT of the chest confirmed bilateral pleural effusion and several scattered areas of dense groundglass opacities with consolidation, no PE. Patient was started on Lasix for diuresis October 07. Thoracentesis performed on October 08. Oxygen sa turation improved post thoracentesis. Echocardiogram showed normal left ventricle mild concentric LVH, folic function normal EF of 50 to 55%. Pulmonary hypertension has worsened compared to prior echo now estimated between 48 to 53 mmHg, no mention for concern endocarditis. Patient has completed antibiotics 14 days for cellulitis, with improvement of O2 sat. Pleural fluid analysis result negative for malignancy, pathology did not show any malignant cells. Physical Exam Vital Signs: Temp Pulse Resp BP Pulse Ox 97.5 F 68 16 145/92 H 96 10/11/19 23:35 10/12/19 02:00 10/11/19 23:35 10/11/19 23:35 10/11/19 23:35 Intake & Output 10/10/19 10/11/19 10/12/19 06:59 06:59 06:59 Intake Total 2006 988 7936 Output Total 1100 Balance 272 349 2402 Weight 53.6 kg 53.6 kg 53.6 kg General appearance: PRESENT: no acute distress, cooperative Head exam: PRESENT: atraumatic, normocephalic Eye exam: PRESENT: EOMI, PERRLA Mouth exam: PRESENT: moist Neck exam: PRESENT: full ROM. ABSENT: JVD Respiratory exam: PRESENT: clear to auscultation baldemar, symmetrical, unlabored. ABSENT: rales, wheezes Cardiovascular exam: PRESENT: RRR, +S1, +S2 Pulses: PRESENT: +2 pedal pulses bilateral GI/Abdominal exam: PRESENT: normal bowel sounds, soft. ABSENT: guarding, tenderness Extremities exam: ABSENT: +2 edema Musculoskeletal exam: PRESENT: full ROM Neurological exam: PRESENT: alert, awake, oriented to person, oriented to place, oriented to time Psychiatric exam: PRESENT: normal mood Skin exam: PRESENT: normal color Results Laboratory Results: WBC 5.8 10^3/uL (4.0-10.5) 10/11/19 06:07 RBC 2.76 10^6/uL (4.35-5.55) L 10/11/19 06:07 Hgb 8.4 g/dL (13.5-17.0) L 10/11/19 06:07 Hct 24.9 % (37.9-51.0) L 10/11/19 06:07 MCV 90 fl (80-97) 10/11/19 06:07 MCH 30.5 pg (27.0-33.4) 10/11/19 06:07 MCHC 33.7 g/dL (32.0-36.0) 10/11/19 06:07 RDW 15.9 % (11.5-14.0) H 10/11/19 06:07 Plt Count 407 10^3/uL (150-450) 10/11/19 06:07 Lymph % (Auto) 15.6 % (13-45) 10/11/19 06:07 [place] % (Auto) 9.0 % (3-13) 10/11/19 06:07 Eos % (Auto) 3.4 % (0-6) 10/11/19 06:07 Baso % (Auto) 1.8 % (0-2) 10/11/19 06:07 Absolute Neuts (auto) 4.0 10^3/uL (1.7-8.2) 10/11/19 06:07 Absolute Lymphs (auto) 0.9 10^3/uL (0.5-4.7) 10/11/19 06:07 Absolute Monos (auto) 0.5 10^3/uL (0.1-1.4) 10/11/19 06:07 Absolute Eos (auto) 0.2 10^3/uL (0.0-0.6) 10/11/19 06:07 Absolute Basos (auto) 0.1 10^3/uL (0.0-0.2) 10/11/19 06:07 Total Counted 100 09/25/19 19:59 Seg Neutrophils % 70.2 % (42-78) 10/11/19 06:07 Seg Neuts % (Manual) 93 % (42-78) H 09/25/19 19:59 Lymphocytes % (Manual) 7 % (13-45) L 09/25/19 19:59 Monocytes % (Manual) 0 % (3-13) L 09/25/19 19:59 Eosinophils % (Manual) 0 % (0-6) 09/25/19 19:59 Basophils % (Manual) 0 % (0-2) 09/25/19 19:59 Abs Neuts (Manual) 14.2 10^3/uL (1.7-8.2) H 09/25/19 19:59 Abs Lymphs (Manual) 1.1 10^3/uL (0.5-4.7) 09/25/19 19:59 Abs Monocytes (Manual) 0.0 10^3/uL (0.1-1.4) L 09/25/19 19:59 Absolute Eos (Manual) 0.0 10^3/uL (0.0-0.6) 09/25/19 19:59 Abs Basophils (Manual) 0.0 10^3/uL (0.0-0.2) 09/25/19 19:59 Toxic Granulation 1+ 09/25/19 19:59 Platelet Comment ADEQUATE 09/25/19 19:59 Polychromasia SLIGHT 09/25/19 19:59 Poikilocytosis SLIGHT 09/25/19 19:59 Basophilic Stippling PRESENT 09/25/19 19:59 Anisocytosis SLIGHT 09/25/19 19:59 Tear Drop Cells SLIGHT 09/25/19 19:59 PT 11.9 SEC (11.4-15.4) 10/10/19 07:20 INR 0.85 10/10/19 07:20 APTT 31.0 SEC (23.5-35.8) 10/09/19 14:55 D-Dimer 2.12 ug/mL (0.00-0.50) H 10/05/19 17:56 Carbonic Acid 1.50 mmol/L (1.05-1.35) H 10/05/19 18:40 HCO3/H2CO3 Ratio 22:1 10/05/19 18:40 ABG pH 7.44 (7.35-7.45) 10/05/19 18:40 ABG pCO2 49.7 mmHg (35-45) H 10/05/19 18:40 ABG pO2 80.2 mmHg (80-100) 10/05/19 18:40 ABG HCO3 33.2 mmol/L (20-24) H 10/05/19 18:40 ABG Total CO2 34.7 mmol/L (23-27) H 10/05/19 18:40 ABG O2 Saturation 96.1 % (94-98) 10/05/19 18:40 ABG Base Excess 8.1 mmol/L 10/05/19 18:40 VBG pH 7.46 (7.30-7.42) H 09/25/19 19:59 VBG pCO2 43.8 mmHg (35-63) 09/25/19 19:59 VBG HCO3 30.4 mmol/L (20-32) 09/25/19 19:59 VBG Base Excess 5.8 mmol/L 09/25/19 19:59 FiO2 2L 10/05/19 18:40 Sodium 131.9 mmol/L (137-145) L 10/12/19 05:15 Potassium 4.4 mmol/L (3.6-5.0) 10/12/19 05:15 Chloride 93 mmol/L (98-107) L 10/12/19 05:15 Carbon Dioxide 32 mmol/L (22-30) H 10/12/19 05:15 Anion Gap 7 (5-19) 10/12/19 05:15 BUN 24 mg/dL (7-20) H 10/12/19 05:15 Creatinine 1.12 mg/dL (0.52-1.25) 10/12/19 05:15 Est GFR ( Amer) > 60 (>60) 10/12/19 05:15 Est GFR (MDRD) Non-Af > 60 (>60) 10/12/19 05:15 Glucose 202 mg/dL (75-110) H 10/12/19 05:15 POC Glucose 287 mg/dL (70-110) H 10/11/19 21:31 Calcium 9.3 mg/dL (8.4-10.2) 10/12/19 05:15 Magnesium 1.9 mg/dL (1.6-2.3) 09/30/19 04:32 Ferritin 78.80 ng/mL (17.9-464.0) 10/05/19 17:56 Total Bilirubin 0.3 mg/dL (0.2-1.3) 10/12/19 05:15 Direct Bilirubin 0.3 mg/dL (0.0-0.4) 10/12/19 05:15 Neonat Total Bilirubin Not Reportable 10/12/19 05:15 Neonat Direct Bilirubin Not Reportable 10/12/19 05:15 Neonat Indirect Bili Not Reportable 10/12/19 05:15 AST 23 U/L (17-59) 10/12/19 05:15 ALT 17 U/L (<50) 10/12/19 05:15 Alkaline Phosphatase 125 U/L (38-126) 10/12/19 05:15 Lactate Dehydrogenase 332 U/L (120-246) H 10/09/19 14:55 C-Reactive Protein 11.3 mg/L (<10.0) H 10/05/19 17:56 NT-Pro-B Natriuret Pep 3150 pg/mL (<125) H 10/09/19 08:12 Total Protein 6.5 g/dL (6.3-8.2) 10/12/19 05:15 Albumin 3.2 g/dL (3.5-5.0) L 10/12/19 05:15 Lipase 110.9 U/L (23-300) 09/25/19 19:59 Urine Color STRAW 09/25/19 19:59 Urine Appearance CLEAR 09/25/19 19:59 Urine pH 6.0 (5.0-9.0) 09/25/19 19:59 Ur Specific Tanner 1.023 09/25/19 19:59 Urine Protein 30 mg/dL (NEGATIVE) H 09/25/19 19:59 Urine Glucose (UA) >=500 mg/dL (NEGATIVE) H 09/25/19 19:59 Urine Ketones 20 mg/dL (NEGATIVE) H 09/25/19 19:59 Urine Blood SMALL (NEGATIVE) H 09/25/19 19:59 Urine Nitrite NEGATIVE (NEGATIVE) 09/25/19 19:59 Urine Bilirubin NEGATIVE (NEGATIVE) 09/25/19 19:59 Urine Urobilinogen NEGATIVE mg/dL (<2.0) 09/25/19 19:59 Ur Leukocyte Esterase NEGATIVE (NEGATIVE) 09/25/19 19:59 Urine WBC (Auto) 6 /HPF 09/25/19 19:59 Urine RBC (Auto) 1 /HPF 09/25/19 19:59 Squamous Epi Cells Auto <1 /HPF 09/25/19 19:59 Urine Mucus (Auto) RARE /LPF 09/25/19 19:59 Urine Ascorbic Acid NEGATIVE (NEGATIVE) 09/25/19 19:59 Fluid Type PLEURAL 10/10/19 11:50 Fluid Source LUNG 10/10/19 11:50 Fluid Color STRAW 10/10/19 11:50 Fluid Appearance CLEAR 10/10/19 11:50 Fluid Viscosity LIQUID 10/10/19 11:50 Fluid WBC 151 /uL 10/10/19 11:50 Fluid RBC 3 /uL 10/10/19 11:50 Fluid Seg Neutrophils 26 % 10/10/19 11:50 Fluid Lymphocytes 11 % 10/10/19 11:50 Fluid Monocytes 63 % 10/10/19 11:50 Fluid Eosinophils 0 % 10/10/19 11:50 Fluid Basophils 0 % 10/10/19 11:50 Stool Occult Blood POSITIVE (NEGATIVE) 09/30/19 08:13 Time Trough Drawn 0932 10/01/19 09:32 Vancomycin Trough 15.8 ug/mL (5.0-20.0) 10/01/19 09:32 Urine Opiates Screen NEGATIVE 09/25/19 19:59 Urine Methadone Screen NEGATIVE 09/25/19 19:59 Ur Barbiturates Screen NEGATIVE 09/25/19 19:59 Ur Phencyclidine Scrn NEGATIVE 09/25/19 19:59 Ur Amphetamines Screen NEGATIVE 09/25/19 19:59 U Benzodiazepines Scrn NEGATIVE 09/25/19 19:59 Urine Cocaine Screen NEGATIVE 09/25/19 19:59 U Marijuana (THC) Screen NEGATIVE 09/25/19 19:59 COVID-19 Source NASOPHARYNGEAL 10/05/19 18:20 COVID-19 (DARNELL) NOT DETECTED 10/05/19 18:20 SARS-CoV-2 (PCR) NEGATIVE (NEGATIVE) 10/01/19 12:25 Slides for Path Review SEE COMMENT 10/10/19 11:50 10/05/19 10/07/19 10/09/19 17:56 05:15 08:12 NT-Pro-B Natriuret Pep 4350 H 3490 H 3150 H Impressions: Chest X-Ray 10/05/19 00:00 IMPRESSION: Moderate left and small right pleural effusion. Chest/Abdomen CTA 10/06/19 00:00 IMPRESSION: 1. Bilateral pleural effusions and several scattered areas of dense groundglass opacities with consolidation. Overall appearance favors an infectious process such as an atypical pneumonia/viral pneumonia. However, the low-density pleural effusions suggest a component of volume overload/CHF. 2. No CT evidence for pulmonary embolism. Thoracentesis Ultrasound 10/10/19 00:00 IMPRESSION: SUCCESSFUL THORACENTESIS USING ULTRASOUND GUIDANCE. Chest X-Ray 10/10/19 12:00 IMPRESSION: NO PNEUMOTHORAX FOLLOWING LEFT THORACENTESIS. Chest X-Ray 10/10/19 14:00 IMPRESSION: NO PNEUMOTHORAX FOLLOWING THORACENTESIS. Stroke Is this a Stroke Patient?: No Acute Heart Failure - Is this a Heart Failure Patient?: No
[2019-10-12 06:40] LABS: ABSOLUTE MONOCYTES # (MANUAL) 0.2 10^3/uL (0.1-1.4); BASOPHILS % (MANUAL) 2 % (0-2); EOSINOPHILS % (MANUAL) 1 % (0-6); LYMPHOCYTES % (MANUAL) 21 % (13-45); MONOCYTES % (MANUAL) 4 % (3-13); SEGMENTED NEUTROPHILS % (MAN) 72 % (42-78); TOTAL CELLS COUNTED 100
[2019-10-12 06:41] LABS: ANISOCYTOSIS SLIGHT; PLATELET COMMENT ADEQUATE
[2019-10-12] MEDS ORDERED: INSULIN GLARGINE,HUM.REC.ANLOG 1,000 UNIT/10 ML VIAL SUBCUT SCH ×2 (10:00→22:00)
[2019-10-12] MEDS: INSULIN LISPRO 100 UNIT/ML 3 ML VIAL SUBCUT SCH ×6 (10:24→17:23)
[2019-10-12] MEDS: ENOXAPARIN SODIUM INJ 40 MG/0.4 ML DISP.SYRIN SUBCUT SCH (10:25)
[2019-10-12] MEDS: CARVEDILOL 12.5 MG TABLET PO SCH (10:25)
[2019-10-12] MEDS: LISINOPRIL 10 MG TABLET PO SCH (10:25)
[2019-10-12] MEDS: PAROXETINE HCL 20 MG TABLET PO SCH (10:26)
[2019-10-12] MEDS: FERROUS SULFATE 325 MG TABLET PO SCH (10:26)
[2019-10-12 13:09] LABS: ALBUMIN BODY FLUID 1.1 g/dL (Not Estab.)
[2019-10-12 13:10] LABS: TOTAL PROTEIN BODY FLUID 1.9 g/dL (.)
[2019-10-12 16:33] VITALS: BP 111/69
== END 2019-10-12 17:30 | disposition home or self-care (01) | DRG 580 ==
LOC: ER 19:26 → EH 22:57 → 4N 09-26 00:12 → 3N 10-05 19:04 → 4S 10-08 09:04
PROVIDERS: ADMIT Family Medicine; ATTEND Internal Medicine
PROC: 0KD80ZZ Extraction of Left Upper Arm Muscle, Open Approach (ICD-10-PCS; principal; 2019-10-01 15:00)
PROC: 0DBE8ZX Excision of Large Intestine, Via Natural or Artificial Opening Endoscopic, Diagnostic (ICD-10-PCS; 2019-10-04)
PROC: 0DB68ZX Excision of Stomach, Via Natural or Artificial Opening Endoscopic, Diagnostic (ICD-10-PCS; 2019-10-04)
PROC: B24BZZZ Ultrasonography of Heart with Aorta (ICD-10-PCS; 2019-10-09)
PROC: 0W9B3ZX Drainage of Left Pleural Cavity, Percutaneous Approach, Diagnostic (ICD-10-PCS; 2019-10-10)
DX: L03.114 Cellulitis of left upper limb (principal); E87.1 Hypo-osmolality and hyponatremia; E44.0 Moderate protein-calorie malnutrition; J90 Pleural effusion, not elsewhere classified; E10.65 Type 1 diabetes mellitus with hyperglycemia; B95.62 Methicillin resistant Staphylococcus aureus infection as the cause of diseases classified elsewhere; E86.0 Dehydration; D72.829 Elevated white blood cell count, unspecified; E87.6 Hypokalemia; Z79.4 Long term (current) use of insulin; Z91.14 Patient's other noncompliance with medication regimen; D50.0 Iron deficiency anemia secondary to blood loss (chronic); R09.02 Hypoxemia; Z20.828 Contact with and (suspected) exposure to other viral communicable diseases; K29.70 Gastritis, unspecified, without bleeding; R19.5 Other fecal abnormalities; I11.0 Hypertensive heart disease with heart failure; I50.9 Heart failure, unspecified; I27.20 Pulmonary hypertension, unspecified; F14.10 Cocaine abuse, uncomplicated; F17.200 Nicotine dependence, unspecified, uncomplicated; Z82.49 Family history of ischemic heart disease and other diseases of the circulatory system; Z83.3 Family history of diabetes mellitus; Z90.2 Acquired absence of lung [part of]; Z68.20 Body mass index [BMI] 20.0-20.9, adult
CPT/HCPCS: 1710; 32555; 36415; 36600; 43239; 45380; 71045; 71046; 71275; 80048; 80053; 80202; 80307; 81001; 813; 82042; 82150; 82272; 82728; 82803; 82945; 82962; 83615; 83690; 83735; 83880; 83986; 84132; 84157; 85025; 85027; 85049; 85379; 85610; 85730; 86140; 87040; 87070; 87075; 87077; 87186; 87205; 87635; 88305; 89050; 93005; 93010; 93306; 94799; 96361; 96365; 96367; 96375; 99285; C9803; J0360; J1644; J1650; J1815; J1940; J2001; J2250; J2270; J2405; J2543; J2704; J3010; J3370; J3480; J3490; J7030; J7060

== ENCOUNTER 2019-10-26 14:54 | Inpatient (IN) | payer MEDICAID ==
[2019-10-26] MEDS ORDERED: ONDANSETRON 4 MG TAB.RAPDIS PO ONE (15:49)
[2019-10-26] MEDS ORDERED: ONDANSETRON HCL INJ/PF 4 MG/2 ML SDV IV ONE (16:18)
[2019-10-26] MEDS ORDERED: NORMAL SALINE 1000 ML 1,000 ML IV ONE (16:18)
[2019-10-26] MEDS ORDERED: RINGERS SOLUTION,LACTATED 1,000 ML IV ONE ×3 (17:34→19:21)
[2019-10-26] MEDS ORDERED: METOCLOPRAMIDE HCL INJ/PF 10 MG/2 ML SDV IV ONE (17:34)
[2019-10-26 17:39] LABS: VENOUS BLOOD BASE EXCESS -30.6 mmol/L; VENOUS BLOOD HCO3 2.6 mmol/L (20-32)
[2019-10-26 17:40] LABS: VENOUS BLOOD PCO2 16.9 mmHg (35-63); VENOUS BLOOD PH 6.81 (7.30-7.42)
--- NOTE | 2019-10-26 17:42 | ER Document Report ---
Entered by CHLOE STILL SCRIBE 10/26/19 1728 Acting as scribe for:ELLIOT SOLANO MD ED General - General Chief Complaint: Shortness Of Breath Stated Complaint: DIFFICULTY BREATHING Time Seen by Provider: 10/26/19 17:24 Mode of Arrival: Ambulatory Information source: Patient, Emergency Med Personnel, [facility] Records Notes: This 54 year old male patient with a history of insulin-dependent diabetes and multiple admissions for DKA presents to the ED today with complaints of fatigue and "just not feeling well" for the past several days. Per nursing, the patient's family has noticed increased abnormal behavior and are unsure of whether or not the patient has been taking his insulin; see nursing notes for further details. Patient reports nausea and vomiting. He does appear confused at this time. TRAVEL OUTSIDE OF THE [place] IN LAST 30 DAYS: No - Related Data Allergies/Adverse Reactions: No Known Allergies Allergy (Verified 06/08/17 20:19) Past Medical History - General Information source: Patient, Emergency Med Personnel, [facility] Records - Social History Smoking Status: Current Every Day Smoker Cigarette use (# per day): Yes Chew tobacco use (# tins/day): No Smoking Education Provided: No Lives with: Family Family History: Reviewed & Not Pertinent, DM, Hypertension - Past Medical History Cardiac Medical History: Reports: Hx Congestive Heart Failure - Diastolic, Hx Hypertension Pulmonary Medical History: Reports: Hx COPD Endocrine Medical History: Reports: Hx Diabetes Mellitus Type 1 Renal/ Medical History: Reports: Hx Renal Insufficiency GI Medical History: Musculoskeletal Medical History: Past Surgical History: Reports: Other - Removal of part of a lung as a child due to abscess. - Immunizations Immunizations up to date: Yes Hx Diphtheria, Pertussis, Tetanus Vaccination: Yes Review of Systems - Review of Systems Constitutional: See HPI EENT: No symptoms reported Cardiovascular: No symptoms reported Respiratory: No symptoms reported Gastrointestinal: See HPI Genitourinary: No symptoms reported Male Genitourinary: No symptoms reported Musculoskeletal: No symptoms reported Skin: No symptoms reported Hematologic/Lymphatic: No symptoms reported Neurological/Psychological: See HPI -: Yes All other systems reviewed and negative Physical Exam - Vital signs Vitals: Temp Pulse Resp BP Pulse Ox 98.1 F 102 H 20 151/78 H 100 10/26/19 15:36 10/26/19 15:36 10/26/19 15:36 10/26/19 15:36 10/26/19 15:36 - General General appearance: Other - He appears confused and has a strong ketone odor - HEENT Head: Normocephalic, Atraumatic Eyes: Normal Pupils: PERRL - Respiratory Respiratory status: Tachypnea Chest status: Nontender Breath sounds: Normal Chest palpation: Normal - Cardiovascular Rhythm: Regular Heart sounds: Normal auscultation Murmur: No Friction rub: No Gallop: None auscultated - Abdominal Inspection: Normal Distension: No distension Bowel sounds: Normal Tenderness: Nontender - Abdomen soft Organomegaly: No organomegaly - Back Back: Normal, Nontender - Extremities General upper extremity: Normal inspection General lower extremity: Normal inspection. No: Edema - Neurological Cognition: Confused - Psychological Associated symptoms: Confused - Skin Skin Temperature: Warm Skin Moisture: Dry Skin Color: Normal Course - Vital Signs Vital signs: Temp Pulse Resp BP Pulse Ox 98.1 F 95 20 92/54 L 100 10/26/19 15:36 10/26/19 18:08 10/26/19 19:49 10/26/19 19:49 10/26/19 19:49 - Laboratory Result Diagrams: 10/26/19 17:19 10/26/19 17:19 Laboratory results interpreted by me: 10/26/19 10/26/19 10/26/19 17:19 17:19 17:19 RBC 3.39 L Hgb 10.6 L MCV 117 H D MCHC 26.8 L RDW 16.7 H Seg Neuts % (Manual) 93 H Lymphocytes % (Manual) 3 L Abs Lymphs (Manual) 0.2 L VBG pH 6.81 L* VBG pCO2 16.9 L* VBG HCO3 2.6 L Sodium 123.7 L Potassium 7.1 H* Chloride 90 L Carbon Dioxide < 5 L* BUN 59 H Creatinine 1.90 H Est GFR ( Amer) 45 L Est GFR (MDRD) Non-Af 37 L Glucose 1393 H* ALT 128 H Alkaline Phosphatase 178 H Creatine Kinase 10/26/19 17:19 RBC Hgb MCV MCHC RDW Seg Neuts % (Manual) Lymphocytes % (Manual) Abs Lymphs (Manual) VBG pH VBG pCO2 VBG HCO3 Sodium Potassium Chloride Carbon Dioxide BUN Creatinine Est GFR ( Amer) Est GFR (MDRD) Non-Af Glucose ALT Alkaline Phosphatase Creatine Kinase 44 L - Diagnostic Test Radiology reviewed: Image reviewed - Chest x-ray does not show acute cardia pulm onary abnormalities. - EKG Interpretation by Me EKG shows normal: Sinus rhythm, Parker, Intervals, QRS Complexes, ST-T Waves Rate: Tachycardia - 101 Parker/QRS: IVCD Voltage: Consistent with LVH When compared to previous EKG there are: No significant change - Consults Dr. Jiang Time consulted: 18:26 Consulted provider: other - He is presently occupied with a COVID-19 cardiac arrest patient, he will have the nighttime registered dental assistant come see the patient. Critical Care Note - Critical Care Note Total time excluding time spent on procedures (mins): 35 Comments: At least 35 minutes spent evaluating patient, reviewing his multiple lab abnormalities, reviewing prior records with similar presentations, instituting medical management and going to check on the patient several times until he was stabilizing. Time spent consulting with the registered dental assistant. Discharge - Discharge Clinical Impression: Hyperglycemia due to type 1 diabetes mellitus, Hyperkalemia, Dehydration, Tachycardia, Medically noncompliant, Nausea DKA, type 1 Qualifiers: Diabetes mellitus complication detail: without coma Qualified Code(s): E10.10 - Type 1 diabetes mellitus with ketoacidosis without coma Uncontrolled diabetes mellitus Qualifiers: Diabetes mellitus type: type 1 Glycemic state: with hyperglycemia Qualified Code(s): E10.65 - Type 1 diabetes mellitus with hyperglycemia Condition: Fair Disposition: ADMITTED INPATIENT Admitting Provider: Deidre (Die Cast Engineer) Unit Admitted: ICU I personally performed the services described in the documentation, reviewed and edited the documentation which was dictated to the scribe in my presence, and it accurately records my words and actions.
[2019-10-26 17:44] LABS: HEMATOCRIT 39.5 % (37.9-51.0); HEMOGLOBIN 10.6 g/dL (13.5-17.0); MEAN CORPUSCULAR HEMOGLOBIN 31.3 pg (27.0-33.4); MEAN CORPUSCULAR HGB CONC 26.8 g/dL (32.0-36.0); RED BLOOD COUNT 3.39 10^6/uL (4.35-5.55); RED CELL DISTRIBUTION WIDTH 16.7 % (11.5-14.0); WHITE BLOOD COUNT 6.7 10^3/uL (4.0-10.5)
[2019-10-26 17:58] LABS: ALBUMIN 4.2 g/dL (3.5-5.0); ALKALINE PHOSPHATASE 178 U/L (38-126); ASPARTATE AMINO TRANSFERASE 57 U/L (17-59); BILIRUBIN,DIRECT 0.3 mg/dL (0.0-0.4); BILIRUBIN,TOTAL 0.3 mg/dL (0.2-1.3); BLOOD UREA NITROGEN 59 mg/dL (7-20); CALCIUM 9.6 mg/dL (8.4-10.2); CHLORIDE 90 mmol/L (98-107); TOTAL PROTEIN 7.4 g/dL (6.3-8.2)
[2019-10-26 18:16] LABS: MEAN CORPUSCULAR VOLUME 117 fl (80-97)
[2019-10-26 18:22] LABS: CARBON DIOXIDE < 5 mmol/L (22-30); GLUCOSE 1393 mg/dL (75-110); POTASSIUM 7.1 mmol/L (3.6-5.0)
--- NOTE | 2019-10-26 18:24 | EKG REPORT ---
SEVERITY:- ABNORMAL ECG - SINUS TACHYCARDIA NONSPECIFIC INTRAVENTRICULAR CONDUCTION DELAY LEFT VENTRICULAR HYPERTROPHY ANTERIOR Q WAVES, POSSIBLY DUE TO LVH : Confirmed by: Fede Toure 26-Oct-2019 18:23:12
[2019-10-26 18:28] LABS: ABSOLUTE LYMPHOCYTES# (MANUAL) 0.2 10^3/uL (0.5-4.7); ABSOLUTE MONOCYTES # (MANUAL) 0.2 10^3/uL (0.1-1.4); BASOPHILS % (MANUAL) 0 % (0-2); EOSINOPHILS % (MANUAL) 1 % (0-6); LYMPHOCYTES % (MANUAL) 3 % (13-45); MONOCYTES % (MANUAL) 3 % (3-13); SEGMENTED NEUTROPHILS % (MAN) 93 % (42-78); TOTAL CELLS COUNTED 100
[2019-10-26] MEDS ORDERED: INSULIN REG, HUMAN 100 UNIT/ML 3 ML VIAL (PYX) IV ONE ×3 (18:28→19:16)
[2019-10-26 18:31] LABS: ANISOCYTOSIS 1+; OVALOCYTES 1+; PLATELET CLUMPS PRESENT; PLATELET COMMENT ADEQUATE; POIKILOCYTOSIS 2+; SPHEROCYTES 2+
[2019-10-26 18:32] LABS: PLATELET COUNT 229 10^3/uL (150-450)
--- NOTE | 2019-10-26 19:27 | RADIOLOGY REPORT (SQ) ---
EXAM DESCRIPTION: CHEST SINGLE VIEW IMAGES COMPLETED DATE/TIME: 10/26/2019 5:49 pm REASON FOR STUDY: DKA COMPARISON: 10/10/2019 EXAM PARAMETERS: NUMBER OF VIEWS: One view. TECHNIQUE: Single frontal radiographic view of the chest acquired. RADIATION DOSE: NA LIMITATIONS: None. FINDINGS: LUNGS AND PLEURA: No opacities, masses or pneumothorax. No pleural effusion. MEDIASTINUM AND HILAR STRUCTURES: No masses. Contour normal. HEART AND VASCULAR STRUCTURES: Heart normal in size. Normal vasculature. BONES: No acute findings. HARDWARE: None in the chest. OTHER: No other significant finding. IMPRESSION: NO ACUTE RADIOGRAPHIC FINDING IN THE CHEST. TECHNICAL DOCUMENTATION: JOB ID: [id number] 2010 [employer]- All Rights Reserved Reading location - IP/workstation name: [email or web address]
[2019-10-26] MEDS ORDERED: ACETAMINOPHEN 325 MG TABLET PO PRN (19:50)
[2019-10-26] MEDS ORDERED: ONDANSETRON HCL INJ/PF 4 MG/2 ML SDV IV PRN (19:50)
[2019-10-26 20:12] LABS: ALBUMIN 3.7 g/dL (3.5-5.0); ALKALINE PHOSPHATASE 149 U/L (38-126); ASPARTATE AMINO TRANSFERASE 50 U/L (17-59); BILIRUBIN,DIRECT 0.3 mg/dL (0.0-0.4); BILIRUBIN,TOTAL 0.3 mg/dL (0.2-1.3); BLOOD UREA NITROGEN 57 mg/dL (7-20); CALCIUM 9.2 mg/dL (8.4-10.2); CHLORIDE 95 mmol/L (98-107); TOTAL PROTEIN 6.8 g/dL (6.3-8.2)
--- NOTE | 2019-10-26 20:15 | CRITICAL CARE ADMISSION REPORT ---
HPI Date:: 10/26/19 Time:: 20:01 Reason for ICU Reason:: DKA. Hyperkalemia. Metabolic acidosis Admission Date/Time & PCP: Admission Date/Time: 10/26/19 19:42 Primary Care Provider: ALFONSO OVALLE PA-C HPI: 54 year old white male who presented to [facility] with complaints of general fatigue and not feeling well for a few days. The patient was seen by the ER provider and found to have a blood sugar over 1000 and was in DKA. The patient does have a past history of diabetes with multiple admissions for DKA. The p atient does have a history of substance abuse and ETOH abuse. - Diagnosis/Plan (1) DKA, type 1 Qualifiers: Diabetes mellitus complication detail: without coma Qualified Code(s): E10.10 - Type 1 diabetes mellitus with ketoacidosis without coma Is this a current diagnosis for this admission?: Yes Plan: fluids and regular insulin (2) Dehydration Is this a current diagnosis for this admission?: Yes Plan: LR for hydration total of 4 liters then maintenance (3) Hyperglycemia due to type 1 diabetes mellitus Is this a current diagnosis for this admission?: Yes Plan: insulin gtt (4) Hyperkalemia Is this a current diagnosis for this admission?: Yes Plan: repeat BMP Q 4 hours administer regular insulin (6) Metabolic acidosis due to diabetes mellitus Is this a current diagnosis for this admission?: Yes Plan Summary: Admit patietn the ICU will administer LR for hydration and start on regular insulin gtt and monitor electrolytes Q4 hours and treat accordingly. Past Medical History Cardiac Medical History: Reports: Congestive Heart Failure - Diastolic, Hypertension Denies: Myocardial Infarction Pulmonary Medical History: Reports: Chronic Obstructive Pulmonary Disease (COPD) Denies: Asthma EENT Medical History: Reports: None Neurological Medical History: Reports: None Denies: Seizures Endocrine Medical History: Reports: Diabetes Mellitus Type 1 Denies: Diabetes Mellitus Type 2, Hyperthyroidism, Hypothyroidism Malignancy Medical History: Reports: None GI Medical History: Denies: Cirrhosis, Hepatitis Musculoskeltal Medical History: Denies: Arthritis, Gout Skin Medical History: Denies: Eczema, Psoriasis Psychiatric Medical History: Reports: Alcohol Dependency, Substance Abuse Traumatic Medical History: Reports: None Hematology: Reports: None Denies: Anemia, Bleeding Tendencies Infectious Medical History: Reports: None Past Surgical History Past Surgical History: Reports: Other - Removal of part of a lung as a child due to abscess. Social/Family History - Social History Lives with: Family Smoking Status: Unknown if Ever Smoked Frequency of Alcohol Use: Heavy Hx Recreational Drug Use: Yes Drugs: Cocaine, Heroin Hx Prescription Drug Abuse: Yes - Medication/Allergies Home Medications: Carvedilol [Coreg 6.25 mg Tablet] 6.25 mg PO Q12 #60 tablet 08/09/19 Paroxetine HCl [Paxil] 10 mg PO DAILY 09/13/19 Lisinopril [Prinivil 5 mg Tablet] 10 mg PO DAILY 30 Days #30 tablet 09/19/19 Insulin Lispro [Humalog Kwikpen U-100] 15 unit SQ TID 09/26/19 Pantoprazole Sodium [Protonix [address] Tablet] 40 mg PO BID@0600,1700 #60 tablet.dr 10/05/19 Insulin Glargine,Hum.rec.anlog [Lantus Insulin 100 Unit/1 ml 10 ml] 20 unit SUBCUT Q12 30 Days #14 vial 10/12/19 Famotidine [Pepcid 20 mg Tablet] 20 mg PO DAILY 10/26/19 Allergies/Adverse Reactions: No Known Allergies Allergy (Verified 06/08/17 20:19) Review of Systems ROS unobtainable: Due to mental status - pt awake will anser simple questions yes/no Constitutional: PRESENT: as per HPI, weight loss Gastrointestinal: PRESENT: nausea Endocrine: PRESENT: polydipsia, polyuria Physical Exam Vital Signs: Temp Pulse Resp BP Pulse Ox 98.1 F 95 20 92/54 L 100 10/26/19 15:36 10/26/19 18:08 10/26/19 19:49 10/26/19 19:49 10/26/19 19:49 Intake & Output 10/25/19 10/26/19 10/27/19 06:59 06:59 06:59 Intake Total 1000 Balance 1000 Weight 53 kg Weight/Height Weight 53 kg Height 5 ft 4 in General appearance: PRESENT: mild distress, thin Head exam: PRESENT: atraumatic, normocephalic Eye exam: PRESENT: PERRLA Ear exam: PRESENT: normal external ear exam Mouth exam: PRESENT: dry mucosa, tongue midline Teeth exam: PRESENT: poor dentation Neck exam: PRESENT: full ROM Respiratory exam: PRESENT: decreased breath sounds, tachypnea Cardiovascular exam: PRESENT: RRR, +S1, +S2 Pulses: PRESENT: normal carotid pulses, normal radial pulses GI/Abdominal exam: PRESENT: hypoactive bowel sounds, soft, tenderness - generalized Rectal exam: PRESENT: deferred Musculoskeletal exam: PRESENT: full ROM Laboratory/Radiographs Laboratory Results: 10/26/19 17:19 10/26/19 10/26/19 10/26/19 16:09 16:09 17:19 WBC Cancelled RBC Cancelled Hgb Cancelled Hct Cancelled MCV Cancelled MCH Cancelled MCHC Cancelled RDW Cancelled Plt Count Cancelled Seg Neutrophils % Cancelled VBG pH 6.81 L* VBG pCO2 16.9 L* VBG HCO3 2.6 L VBG Base Excess -30.6 Sodium Cancelled Potassium Cancelled Chloride Cancelled Carbon Dioxide Cancelled Anion Gap Cancelled BUN Cancelled Creatinine Cancelled Est GFR ( Amer) Cancelled Est GFR (Non-Af Amer) Cancelled Glucose Cancelled Calcium Cancelled Total Bilirubin Cancelled AST Cancelled Alkaline Phosphatase Cancelled Total Protein Cancelled Albumin Cancelled 10/26/19 10/26/19 17:19 17:19 WBC 6.7 RBC 3.39 L Hgb 10.6 L Hct 39.5 MCV 117 H D MCH 31.3 MCHC 26.8 L RDW 16.7 H Plt Count 229 Seg Neutrophils % Not Reportable VBG pH VBG pCO2 VBG HCO3 VBG Base Excess Sodium 123.7 L Potassium 7.1 H* Chloride 90 L Carbon Dioxide < 5 L* Anion Gap Not Reportable BUN 59 H Creatinine 1.90 H Est GFR ( Amer) 45 L Est GFR (Non-Af Amer) Glucose 1393 H* Calcium 9.6 Total Bilirubin 0.3 AST 57 Alkaline Phosphatase 178 H Total Protein 7.4 Albumin 4.2 10/26/19 10/26/19 10/26/19 16:09 17:19 17:19 Creatine Kinase 44 L Troponin I Cancelled < 0.012 Impressions: Chest X-Ray 10/26/19 18:35 IMPRESSION: NO ACUTE RADIOGRAPHIC FINDING IN THE CHEST. All labs, radiographs, diagnostic studies and EKGs were personally reviewed: Yes In addition, reports of radiographic and diagnostic studies were read: Yes Critical Time Critical Time (minutes): 55 -: The care of a critically ill patient is dynamic. This note represents a static moment in the admission process. Orders and treatments may be given simultaneou sly and urgently, and time is not credit representative of the treatment process. This patient requires Critical Care secondary to life threatening organ or limb dysfunction. Without Critical Care services, the patient is at risk for increased mortality and morbidity.
[2019-10-26] MEDS ORDERED: DEXTROSE 40% GEL 15 GM TUBE X 2 PO PRN (20:30)
[2019-10-26] MEDS ORDERED: DEXTROSE 50%-WATER SYRINGE 25 GM/50 ML DOSE IV PRN (20:30)
[2019-10-26] MEDS ORDERED: GLUCAGON,HUMAN RECOMB 1 MG INJ IM PRN (20:30)
[2019-10-26 20:33] LABS: POTASSIUM 5.5 mmol/L (3.6-5.0)
[2019-10-26 20:35] LABS: CARBON DIOXIDE < 5 mmol/L (22-30); GLUCOSE 1339 mg/dL (75-110)
[2019-10-26] MEDS: INSULIN, REGULAR 100 UNIT/100 ML NORMAL SALINE IV PRN ×2 (21:15)
[2019-10-26] MEDS: RINGERS LACTATED IV PRN ×2 (21:20→22:08)
[2019-10-26] MEDS: ENOXAPARIN SODIUM INJ 30 MG/0.3 ML DISP.SYRIN SUBCUT SCH (21:48)
[2019-10-26 22:14] LABS: APPEARANCE,URINE CLEAR; BILIRUBIN,URINE NEGATIVE (NEGATIVE); COLOR,URINE YELLOW; GLUCOSE, URINE >=500 mg/dL (NEGATIVE); KETONES,URINE 20 mg/dL (NEGATIVE); LEUKOCYTE ESTERASE,URINE NEGATIVE (NEGATIVE); NITRITE,URINE NEGATIVE (NEGATIVE); PROTEIN,URINE 30 mg/dL (NEGATIVE); URINE SPECIFIC GRAVITY 1.017; UROBILINOGEN,URINE NEGATIVE mg/dL (<2.0)
[2019-10-26 22:23] LABS: URINE AMPHETAMINES SCREEN NEGATIVE; URINE BARBITURATES SCREEN NEGATIVE; URINE BENZODIAZEPINES SCREEN NEGATIVE; URINE COCAINE SCREEN NEGATIVE; URINE MARIJUANA (THC) SCREEN NEGATIVE; URINE METHADONE SCREEN NEGATIVE; URINE PHENCYCLIDINE SCREEN NEGATIVE
[2019-10-26 22:53] LABS: BLOOD UREA NITROGEN 58 mg/dL (7-20); CALCIUM 8.9 mg/dL (8.4-10.2); CHLORIDE 98 mmol/L (98-107)
[2019-10-26 23:07] LABS: POTASSIUM 4.1 mmol/L (3.6-5.0)
[2019-10-26 23:08] LABS: CARBON DIOXIDE < 5 mmol/L (22-30); GLUCOSE 1195 mg/dL (75-110)
[2019-10-26] MEDS ORDERED: DEXTROSE 5%-WATER 1000 ML 1,000 ML with SODIUM BICARBONATE 150 MEQ IV PRN ×2 (23:08)
[2019-10-26] MEDS ORDERED: RINGERS SOLUTION,LACTATED 1,000 ML IV PRN ×2 (23:11→23:39)
[2019-10-26] MEDS ORDERED: SODIUM BICARBONATE 8.4% INJ 50 MEQ/50 ML DISP.SYRIN ONE (23:14)
[2019-10-26 23:25] LABS: VENOUS BLOOD BASE EXCESS -28.8 mmol/L
[2019-10-26 23:39] LABS: VENOUS BLOOD PH 6.86 (7.30-7.42)
[2019-10-27 03:26] LABS: BLOOD UREA NITROGEN 59 mg/dL (7-20); CALCIUM 8.8 mg/dL (8.4-10.2); CREATINE KINASE 131 U/L (55-170)
[2019-10-27 03:46] LABS: CHLORIDE 104 mmol/L (98-107); POTASSIUM 3.4 mmol/L (3.6-5.0)
[2019-10-27 03:49] LABS: CARBON DIOXIDE < 5 mmol/L (22-30); GLUCOSE 730 mg/dL (75-110)
[2019-10-27] MEDS ORDERED: RINGERS SOLUTION,LACTATED 1,000 ML with POTASSIUM CHLORIDE 40 MEQ IV PRN ×2 (03:52)
[2019-10-27] MEDS: INSULIN, REGULAR 100 UNIT/100 ML NORMAL SALINE IV PRN ×2 (04:14)
[2019-10-27 04:28] LABS: ABSOLUTE LYMPHOCYTES (AUTO) 0.8 10^3/uL (0.5-4.7); ABSOLUTE MONOCYTES (AUTO) 0.5 10^3/uL (0.1-1.4); ABSOLUTE NEUT (AUTO) 9.9 10^3/uL (1.7-8.2); BASOPHILS % (AUTO) 0.1 % (0-2); HEMATOCRIT 25.5 % (37.9-51.0); LYMPHOCYTES % (AUTO) 7.4 % (13-45); MEAN CORPUSCULAR HEMOGLOBIN 30.5 pg (27.0-33.4); MEAN CORPUSCULAR HGB CONC 32.2 g/dL (32.0-36.0); MONOCYTES % (AUTO) 4.2 % (3-13); PLATELET COUNT 165 10^3/uL (150-450); SEGMENTED NEUTROPHILS % (AUTO) 88.3 % (42-78); TOTAL CELLS COUNTED % (AUTO) 100 %; WHITE BLOOD COUNT 11.2 10^3/uL (4.0-10.5)
[2019-10-27 04:39] LABS: HEMOGLOBIN 8.2 g/dL (13.5-17.0)
[2019-10-27 04:41] LABS: MEAN CORPUSCULAR VOLUME 95 fl (80-97)
[2019-10-27 04:42] LABS: BLOOD UREA NITROGEN 59 mg/dL (7-20); PHOSPHORUS 3.8 mg/dL (2.5-4.5)
[2019-10-27] MEDS: POTASSI CL 20 MEQ/50 ML RIDER 20 MEQ/50 ML RTUPB IV SCH ×2 (04:45→06:22)
[2019-10-27 04:46] LABS: INTERNATIONAL RATION (INR) 1.07; PROTHROMBIN TIME 14.1 SEC (11.4-15.4)
[2019-10-27 04:47] LABS: CHLORIDE 104 mmol/L (98-107)
[2019-10-27] MEDS ORDERED: POTASSI CL 40 MEQ/NS 1L 1,000 ML IV PRN (04:49)
[2019-10-27 04:53] LABS: ANION GAP 25 (5-19); GLUCOSE 583 mg/dL (75-110)
[2019-10-27 04:54] LABS: CARBON DIOXIDE 7 mmol/L (22-30); POTASSIUM 2.9 mmol/L (3.6-5.0)
[2019-10-27] MEDS ORDERED: POTASSI CL 40 MEQ/NS 1L 1,000 ML IV ONE (04:55)
[2019-10-27 04:57] LABS: FREE T4 (FREE THYROXINE) 1.21 ng/dL (0.78-2.19)
[2019-10-27 05:11] LABS: THYROID STIMULATING HORMONE 1.06 uIU/mL (0.47-4.68)
[2019-10-27] MEDS ORDERED: PANTOPRAZOLE SODIUM 40 MG TABLET.DR PO SCH (06:00)
[2019-10-27 06:27] LABS: VENOUS BLOOD BASE EXCESS -10.6 mmol/L; VENOUS BLOOD HCO3 14.4 mmol/L (20-32); VENOUS BLOOD PCO2 28.7 mmHg (35-63); VENOUS BLOOD PH 7.32 (7.30-7.42)
[2019-10-27 06:54] LABS: ANION GAP 18 (5-19); BLOOD UREA NITROGEN 56 mg/dL (7-20); CARBON DIOXIDE 15 mmol/L (22-30); CHLORIDE 107 mmol/L (98-107); CREATINE KINASE 183 U/L (55-170); GLUCOSE 292 mg/dL (75-110)
[2019-10-27 07:00] LABS: POTASSIUM 2.9 mmol/L (3.6-5.0)
--- NOTE | 2019-10-27 07:19 | EKG REPORT ---
SEVERITY:- ABNORMAL ECG - SINUS RHYTHM LEFT VENTRICULAR HYPERTROPHY ANTERIOR Q WAVES, POSSIBLY DUE TO LVH BORDERLINE PROLONGED QT INTERVAL NONSPECIFIC ST-T CHANGES LVH RELATED : Confirmed by: Fede Toure 27-Oct-2019 07:19:16
[2019-10-27] MEDS: FAMOTIDINE 20 MG TABLET PO SCH (09:14)
[2019-10-27] MEDS ORDERED: DEXTROSE 5%-NORMAL SALINE 1,000 ML IV PRN (09:14)
[2019-10-27] MEDS: LISINOPRIL 5 MG TABLET PO SCH (09:14)
[2019-10-27] MEDS: ENOXAPARIN SODIUM INJ 30 MG/0.3 ML DISP.SYRIN SUBCUT SCH (09:14)
[2019-10-27] MEDS: PAROXETINE HCL 20 MG TABLET PO SCH (09:14)
--- NOTE | 2019-10-27 09:14 | PDOC CRITICAL CARE PROG REPORT ---
General Date:: 10/27/19 Hospital Day:: 2 Resuscitation Status: Full Code Events in the past 12 to 24 Hours:: Improving DKA. Gap closed still on low dose insulin drip Reason for ICU Addmission:: DKA. Metabolic acidosis - Medications: Medications reviewed and adjusted accordingly: Yes Vasopressors:: None Sedation:: None Physical Exam Vital Signs: Temp Pulse Resp BP Pulse Ox 96.6 F L 100 23 H 138/81 H 100 10/27/19 06:00 10/27/19 08:00 10/27/19 06:00 10/27/19 05:50 10/27/19 06:00 Intake & Output 10/26/19 10/27/19 10/28/19 06:59 06:59 06:59 Intake Total 6147 9 Output Total 740 Balance 5407 9 Weight 44.8 kg Weight/Height Weight 44.8 kg Height 5 ft 4 in General appearance: PRESENT: no acute distress, thin Head exam: PRESENT: atraumatic, normocephalic Eye exam: PRESENT: conjunctiva pink, EOMI, PERRLA. ABSENT: scleral icterus Ear exam: PRESENT: normal external ear exam Mouth exam: PRESENT: moist, tongue midline Respiratory exam: PRESENT: clear to auscultation baldemar. ABSENT: rales, rhonchi, wheezes Cardiovascular exam: PRESENT: RRR, tachycardia. ABSENT: diastolic murmur, rubs, systolic murmur GI/Abdominal exam: PRESENT: normal bowel sounds, soft. ABSENT: distended, guarding, mass, organolmegaly, rebound, tenderness Rectal exam: PRESENT: deferred Gentrourinary exam: PRESENT: indwelling catheter Extremities exam: PRESENT: full ROM. ABSENT: calf tenderness, clubbing, pedal edema Musculoskeletal exam: PRESENT: normal inspection Neurological exam: PRESENT: alert, awake, oriented to person, oriented to place, oriented to time, oriented to situation, CN II-XII grossly intact Psychiatric exam: PRESENT: agitated - At times Skin exam: PRESENT: dry, intact, warm. ABSENT: cyanosis, rash Laboratory/Radiographs Laboratory Results: 10/27/19 04:04 10/27/19 06:19 10/26/19 10/26/19 10/26/19 16:09 16:09 17:19 WBC Cancelled RBC Cancelled Hgb Cancelled Hct Cancelled MCV Cancelled MCH Cancelled MCHC Cancelled RDW Cancelled Plt Count Cancelled Seg Neutrophils % Cancelled VBG pH 6.81 L* VBG pCO2 16.9 L* VBG HCO3 2.6 L VBG Base Excess -30.6 Sodium Cancelled Potassium Cancelled Chloride Cancelled Carbon Dioxide Cancelled Anion Gap Cancelled BUN Cancelled Creatinine Cancelled Est GFR ( Amer) Cancelled Est GFR (Non-Af Amer) Cancelled Glucose Cancelled Calcium Cancelled Phosphorus Magnesium Total Bilirubin Cancelled AST Cancelled Alkaline Phosphatase Cancelled Total Protein Cancelled Albumin Cancelled TSH Free T4 Urine Color Urine Appearance Urine pH Ur Specific Lawrence Urine Protein Urine Glucose (UA) Urine Ketones Urine Blood Urine Nitrite Ur Leukocyte Esterase Urine WBC (Auto) Urine RBC (Auto) 10/26/19 10/26/19 10/26/19 17:19 17:19 19:45 WBC 6.7 RBC 3.39 L Hgb 10.6 L Hct 39.5 MCV 117 H D MCH 31.3 MCHC 26.8 L RDW 16.7 H Plt Count 229 Seg Neutrophils % Not Reportable VBG pH VBG pCO2 VBG HCO3 VBG Base Excess Sodium 123.7 L 127.9 L Potassium 7.1 H* 5.5 H D Chloride 90 L 95 L Carbon Dioxide < 5 L* < 5 L* Anion Gap Not Reportable Not Reportable BUN 59 H 57 H Creatinine 1.90 H 1.78 H Est GFR ( Amer) 45 L 48 L Est GFR (Non-Af Amer) Glucose 1393 H* 1339 H* Calcium 9.6 9.2 Phosphorus Magnesium Total Bilirubin 0.3 0.3 AST 57 50 Alkaline Phosphatase 178 H 149 H Total Protein 7.4 6.8 Albumin 4.2 3.7 TSH Free T4 Urine Color Urine Appearance Urine pH Ur Specific Lawrence Urine Protein Urine Glucose (UA) Urine Ketones Urine Blood Urine Nitrite Ur Leukocyte Esterase Urine WBC (Auto) Urine RBC (Auto) 10/26/19 10/26/19 10/26/19 21:50 22:24 23:14 WBC RBC Hgb Hct MCV MCH MCHC RDW Plt Count Seg Neutrophils % VBG pH 6.86 L* VBG pCO2 17.0 L* VBG HCO3 3.0 L VBG Base Excess -28.8 Sodium 128.3 L Potassium 4.1 D Chloride 98 Carbon Dioxide < 5 L* Anion Gap Not Reportable BUN 58 H Creatinine 1.66 H Est GFR ( Amer) 52 L Est GFR (Non-Af Amer) Glucose 1195 H* Calcium 8.9 Phosphorus Magnesium Total Bilirubin AST Alkaline Phosphatase Total Protein Albumin TSH Free T4 Urine Color YELLOW Urine Appearance CLEAR Urine pH 5.0 Ur Specific [place] 1.017 Urine Protein 30 H Urine Glucose (UA) >=500 H Urine Ketones 20 H Urine Blood SMALL H Urine Nitrite NEGATIVE Ur Leukocyte Esterase NEGATIVE Urine WBC (Auto) 2 Urine RBC (Auto) 0 10/27/19 10/27/19 10/27/19 02:53 04:04 04:04 WBC 11.2 H RBC 2.70 L Hgb 8.2 L D Hct 25.5 L MCV 95 D MCH 30.5 MCHC 32.2 RDW 15.0 H Plt Count 165 Seg Neutrophils % 88.3 H VBG pH VBG pCO2 VBG HCO3 VBG Base Excess Sodium 132.8 L 136.1 L Potassium 3.4 L 2.9 L* Chloride 104 104 Carbon Dioxide < 5 L* 7 L* Anion Gap Not Reportable 25 H BUN 59 H 59 H Creatinine 1.76 H 1.78 H Est GFR ( Amer) 49 L 48 L Est GFR (Non-Af Amer) Glucose 730 H* 583 H* Calcium 8.8 9.0 Phosphorus 3.8 Magnesium 1.8 Total Bilirubin AST Alkaline Phosphatase Total Protein Albumin TSH Free T4 Urine Color Urine Appearance Urine pH Ur Specific [place] Urine Protein Urine Glucose (UA) Urine Ketones Urine Blood Urine Nitrite Ur Leukocyte Esterase Urine WBC (Auto) Urine RBC (Auto) 10/27/19 10/27/19 10/27/19 04:04 06:19 06:19 WBC RBC Hgb Hct MCV MCH MCHC RDW Plt Count Seg Neutrophils % VBG pH 7.32 VBG pCO2 28.7 L VBG HCO3 14.4 L VBG Base Excess -10.6 Sodium 139.8 Potassium 2.9 L* Chloride 107 Carbon Dioxide 15 L Anion Gap 18 BUN 56 H Creatinine 1.86 H Est GFR ( Amer) 46 L Est GFR (Non-Af Amer) Glucose 292 H Calcium 9.0 Phosphorus Magnesium Total Bilirubin AST Alkaline Phosphatase Total Protein Albumin TSH 1.06 Free T4 1.21 Urine Color Urine Appearance Urine pH Ur Specific [place] Urine Protein Urine Glucose (UA) Urine Ketones Urine Blood Urine Nitrite Ur Leukocyte Esterase Urine WBC (Auto) Urine RBC (Auto) 10/26/19 10/26/19 10/26/19 16:09 17:19 17:19 Creatine Kinase 44 L Troponin I Cancelled < 0.012 10/26/19 10/26/19 10/27/19 19:45 22:24 02:53 Creatine Kinase 53 L 131 Troponin I 0.019 10/27/19 10/27/19 10/27/19 02:53 04:04 06:19 Creatine Kinase 183 H Troponin I 0.382 0.919 Impressions: Chest X-Ray 10/26/19 18:35 IMPRESSION: NO ACUTE RADIOGRAPHIC FINDING IN THE CHEST. EKG: NSR, LVH, prolonged QT interval. All labs, radiographs, diagnostic studies and EKGs were personally reviewed: Yes In addition, reports of radiographic and diagnostic studies were read: Yes Assessment and Plan - Diagnosis (1) DKA, type 1 Qualifiers: Diabetes mellitus complication detail: without coma Qualified Code(s): E10.10 - Type 1 diabetes mellitus with ketoacidosis without coma Is this a current diagnosis for this admission?: Yes Plan: Improved. BG down to 194. D%NS begun. Anion gap closed but bicarb only 15. When he get to 20 will start lantus and discontinue the drip of inulin (2) Hypokalemia Is this a current diagnosis for this admission?: Yes Plan: He has gone from a lelve of 7 to 2.9. Expected. Replacements ordered. (3) Dehydration Is this a current diagnosis for this admission?: Yes Plan Summary: Will downgrade to [facility] level. Critical Time Critical Time (minutes): 35 Level of Care: ICU Anticipated discharge: Home Anticipated DC Timeframe: within 48 hours -: 1. The care of a critical patient is a dynamic process. This note is a sales representatives synopsis but static in nature. The timeframe for treatments given in order is not necessarily the actual time these treatments may have been done. 2. This patient requires critical care secondary to ongoing requirements for therapy not offered or safe outside the critical care environment. Transfer to a lower level of care will result in altered life or limb morbidity and mortality. 3. Multidisciplinary rounds completed. 4. ABCDE bundle addressed.
[2019-10-27] MEDS: CARVEDILOL 6.25 MG TABLET PO SCH ×2 (09:15→21:16)
[2019-10-27] MEDS ORDERED: (PENDING PHARMACY ID) (Paroxetine Hcl [Paxil] 10 MG) PO SCH (10:00)
[2019-10-27 12:32] LABS: ANION GAP 8 (5-19); BLOOD UREA NITROGEN 55 mg/dL (7-20); CALCIUM 8.9 mg/dL (8.4-10.2); CARBON DIOXIDE 22 mmol/L (22-30); CHLORIDE 111 mmol/L (98-107); GLUCOSE 151 mg/dL (75-110); POTASSIUM 3.6 mmol/L (3.6-5.0)
[2019-10-27 13:03] LABS: PATH REVIEW PATHOLOGIST REVIEWED
[2019-10-27 14:56] LABS: ANION GAP 8 (5-19); BLOOD UREA NITROGEN 53 mg/dL (7-20); CALCIUM 8.6 mg/dL (8.4-10.2); CARBON DIOXIDE 24 mmol/L (22-30); CHLORIDE 111 mmol/L (98-107); POTASSIUM 3.2 mmol/L (3.6-5.0)
[2019-10-27 15:02] LABS: GLUCOSE 60 mg/dL (75-110)
[2019-10-27] MEDS: PANTOPRAZOLE SODIUM 40 MG TABLET.DR PO SCH (16:09)
[2019-10-27] MEDS: DEXTROSE 40% GEL 15 GM TUBE PO PRN (16:18)
[2019-10-27 16:57] LABS: ANION GAP 8 (5-19); BLOOD UREA NITROGEN 54 mg/dL (7-20); CALCIUM 8.9 mg/dL (8.4-10.2); CARBON DIOXIDE 22 mmol/L (22-30); CHLORIDE 112 mmol/L (98-107); POTASSIUM 3.2 mmol/L (3.6-5.0)
[2019-10-27 17:02] LABS: GLUCOSE 58 mg/dL (75-110)
--- NOTE | 2019-10-27 20:28 | Progress Note ---
Provider Note Provider Note: Assuming care of Mitch Hill 54/M, known to me from previous admission, admitted to [place] again 10/26/19 due to DKA in the ICU. He was transferred out of the ICU today. History and labs reviewed. I assessed him at bedside and performed a physical exam. He is stable to remian on floors. Full progress note to follow. I have restarted his basal bolus regimen. Accucheck and hypoglycemia protocol
[2019-10-27] MEDS: INSULIN LISPRO 100 UNIT/ML 3 ML VIAL SUBCUT SCH (21:11)
[2019-10-27] MEDS: DEXTROSE 5%-NORMAL SALINE 1,000 ML IV PRN (21:15)
[2019-10-27] MEDS: INSULIN GLARGINE,HUM.REC.ANLOG 1,000 UNIT/10 ML VIAL SUBCUT SCH (21:16)
[2019-10-27] MEDS: DEXTROSE 50%-WATER SYRINGE 12.5 GM/25 ML DOSE IV PRN (21:19)
[2019-10-28] MEDS: DEXTROSE 5%-NORMAL SALINE 1,000 ML IV PRN ×2 (05:14→23:55)
[2019-10-28] MEDS: PANTOPRAZOLE SODIUM 40 MG TABLET.DR PO SCH ×2 (05:15→18:27)
[2019-10-28 07:44] LABS: BLOOD UREA NITROGEN 42 mg/dL (7-20); CALCIUM 8.1 mg/dL (8.4-10.2); CARBON DIOXIDE 19 mmol/L (22-30); CHLORIDE 114 mmol/L (98-107); GLUCOSE 288 mg/dL (75-110); POTASSIUM 3.8 mmol/L (3.6-5.0)
[2019-10-28 07:52] LABS: ANION GAP 4 (5-19)
[2019-10-28] MEDS: INSULIN LISPRO 100 UNIT/ML 3 ML VIAL SUBCUT SCH ×7 (08:20→21:18)
[2019-10-28] MEDS: LISINOPRIL 5 MG TABLET PO SCH (10:15)
[2019-10-28] MEDS: CARVEDILOL 6.25 MG TABLET PO SCH ×2 (10:15→21:08)
[2019-10-28] MEDS: FAMOTIDINE 20 MG TABLET PO SCH (10:15)
[2019-10-28] MEDS: PAROXETINE HCL 20 MG TABLET PO SCH (10:15)
[2019-10-28] MEDS: INSULIN GLARGINE,HUM.REC.ANLOG 1,000 UNIT/10 ML VIAL SUBCUT SCH ×2 (10:21→21:08)
[2019-10-28] MEDS: ENOXAPARIN SODIUM INJ 30 MG/0.3 ML DISP.SYRIN SUBCUT SCH (10:21)
--- NOTE | 2019-10-28 19:38 | PDOC PROGRESS REPORT ---
Subjective Progress Note for:: 10/28/19 Subjective:: Mitch Hill is a 54 year old male, known to me form previous admissions who was admitted yesterday from the ED due to come planes of fatigue and not feeling well for the past several days. Per ED notes his family noted abnormal behavior and were unsure if whether or not the patient was taking his insulin. In the ED, he was noted to have a blood glucose of 1000, positive ketones. He was initially admitted in the ICU, started on IV fluids, potassium replacement, IV insulin drip. He was transferred to the floors on October 27, 2019 when his DKA has resolved. 10/28/19. He was seen and examined at bedside. Blood glucose continues to be labile. Accu-Cheks will range from 400s to 60s. Patient is unable to tell me if he has been using his insulin properly. Of note I spent at least 30 minutes during his last admission explaining his insulin regimen at home which he seems to have understood at that time. This transition to his basal bolus regimen today. He is still on D5 LR because his appetite is not back. Reason For Visit: DKA Physical Exam Vital Signs: Temp Pulse Resp BP Pulse Ox 97.8 F 77 16 164/104 H 98 10/28/19 15:55 10/28/19 15:55 10/28/19 15:55 10/28/19 15:55 10/28/19 15:55 Intake & Output 10/27/19 10/28/19 10/29/19 06:59 06:59 06:59 Intake Total 6147 3090 600 Output Total 740 1525 825 Balance 5407 1565 -225 Weight 44.8 kg 53 kg General appearance: PRESENT: no acute distress, cooperative, thin Head exam: PRESENT: atraumatic, normocephalic Eye exam: PRESENT: EOMI, PERRLA Ear exam: PRESENT: normal external ear exam Mouth exam: PRESENT: moist Neck exam: PRESENT: full ROM Respiratory exam: PRESENT: clear to auscultation baldemar, symmetrical. ABSENT: rales, unlabored Cardiovascular exam: PRESENT: RRR, +S1, +S2 Pulses: PRESENT: +2 pedal pulses bilateral GI/Abdominal exam: PRESENT: normal bowel sounds, soft. ABSENT: rebound, tenderness Musculoskeletal exam: PRESENT: full ROM Neurological exam: PRESENT: alert, awake Psychiatric exam: PRESENT: flat affect Skin exam: PRESENT: normal color Results Laboratory Results: 10/27/19 04:04 10/28/19 07:05 10/28/19 07:05 Sodium 137.2 Potassium 3.8 Chloride 114 H Carbon Dioxide 19 L Anion Gap 4 L BUN 42 H Creatinine 1.45 H Est GFR ( Amer) > 60 Glucose 288 H Calcium 8.1 L 10/26/19 10/26/19 10/26/19 16:09 17:19 17:19 Creatine Kinase 44 L Troponin I Cancelled < 0.012 10/26/19 10/26/19 10/27/19 19:45 22:24 02:53 Creatine Kinase 53 L 131 Troponin I 0.019 10/27/19 10/27/19 10/27/19 02:53 04:04 06:19 Creatine Kinase 183 H Troponin I 0.382 0.919 Impressions: Chest X-Ray 10/26/19 18:35 IMPRESSION: NO ACUTE RADIOGRAPHIC FINDING IN THE CHEST. Assessment and Plan - Diagnosis (1) DKA, type 1 Qualifiers: Diabetes mellitus complication detail: without coma Qualified Code(s): E10.10 - Type 1 diabetes mellitus with ketoacidosis without coma Is this a current diagnosis for this admission?: Yes Plan: - known diabetic with multiple prior admissions for DKA. Admitted again due to blood glucose of 1000 -Initially admitted in the ICU. Received IV insulin drip, IV fluids, potassium replacement -Transferred to the floors after DKA has resolved -anion gap closed -Insertion to basal bolus insulin -We will adjust insulin daily (2) Uncontrolled diabetes mellitus Qualifiers: Diabetes mellitus type: type 1 Glycemic state: with hyperglycemia Qualified Code(s): E10.65 - Type 1 diabetes mellitus with hyperglycemia Is this a current diagnosis for this admission?: Yes Plan: -Has history of recurrent admissions due to DKA which clearly reflects his noncompliance to his insulin regimen -Awaiting A1c but I am sure this will be high -Continue basal bolus insulin -Carb controlled diet Accu-Cheks hypoglycemia protocol (3) Hypokalemia Is this a current diagnosis for this admission?: Yes Plan: - resolved K 3.8 - monitor daily (4) Acute metabolic encephalopathy Is this a current diagnosis for this admission?: Yes Plan: -Likely secondary to DKA -imProved when I saw him (5) CAD (coronary artery disease) Qualifiers: Coronary Disease-Associated Artery/Lesion type: [place] artery [place] vs. transplanted heart: [place] heart Associated angina: without angina Qualified Code(s): I25.10 - Atherosclerotic heart disease of [place] coronary artery without angina pectoris Is this a current diagnosis for this admission?: Yes Plan: -No chest pain -Continue carvedilol (6) ISELA (acute kidney injury) Is this a current diagnosis for this admission?: Yes Plan: Crea 1.45 baseline of 1.2 - due to dehydration from DKA - continue lisinopril for renoprotection - continue IV fluids - Time Time Spent with patient: 25-34 minutes Anticipated Discharge Disposition: Home, Self Care Anticipated Discharge Timeframe: to be determined
[2019-10-29] MEDS: PANTOPRAZOLE SODIUM 40 MG TABLET.DR PO SCH ×2 (05:57→17:22)
[2019-10-29] MEDS: DEXTROSE 5%-NORMAL SALINE 1,000 ML IV PRN ×2 (05:59→21:45)
[2019-10-29 06:16] LABS: BLOOD UREA NITROGEN 28 mg/dL (7-20); GLUCOSE 155 mg/dL (75-110); POTASSIUM 3.6 mmol/L (3.6-5.0)
[2019-10-29 06:21] LABS: CARBON DIOXIDE 19 mmol/L (22-30); CHLORIDE 116 mmol/L (98-107)
[2019-10-29 06:27] LABS: ANION GAP 4 (5-19)
[2019-10-29] MEDS: FAMOTIDINE 20 MG TABLET PO SCH (10:15)
[2019-10-29] MEDS: CARVEDILOL 6.25 MG TABLET PO SCH ×2 (10:15→21:47)
[2019-10-29] MEDS: LISINOPRIL 5 MG TABLET PO SCH (10:15)
[2019-10-29] MEDS: PAROXETINE HCL 20 MG TABLET PO SCH (10:16)
[2019-10-29] MEDS: INSULIN LISPRO 100 UNIT/ML 3 ML VIAL SUBCUT SCH ×7 (11:51→21:48)
[2019-10-29] MEDS: ENOXAPARIN SODIUM INJ 30 MG/0.3 ML DISP.SYRIN SUBCUT SCH (12:00)
[2019-10-29] MEDS: INSULIN GLARGINE,HUM.REC.ANLOG 1,000 UNIT/10 ML VIAL SUBCUT SCH ×2 (16:04→21:48)
[2019-10-29 16:19] LABS: ABSOLUTE EOSINOPHILS # (AUTO) 0.1 10^3/uL (0.0-0.6); ABSOLUTE MONOCYTES (AUTO) 0.4 10^3/uL (0.1-1.4); ABSOLUTE NEUT (AUTO) 1.8 10^3/uL (1.7-8.2); EOSINOPHILS % (AUTO) 2.1 % (0-6); HEMATOCRIT 25.4 % (37.9-51.0); HEMOGLOBIN 8.6 g/dL (13.5-17.0); LYMPHOCYTES % (AUTO) 30.4 % (13-45); MEAN CORPUSCULAR HEMOGLOBIN 30.5 pg (27.0-33.4); MEAN CORPUSCULAR HGB CONC 33.7 g/dL (32.0-36.0); MONOCYTES % (AUTO) 11.3 % (3-13); PLATELET COUNT 122 10^3/uL (150-450); RED BLOOD COUNT 2.81 10^6/uL (4.35-5.55); RED CELL DISTRIBUTION WIDTH 15.4 % (11.5-14.0); SEGMENTED NEUTROPHILS % (AUTO) 55.2 % (42-78); TOTAL CELLS COUNTED % (AUTO) 100 %; WHITE BLOOD COUNT 3.3 10^3/uL (4.0-10.5)
[2019-10-29 16:20] LABS: MEAN CORPUSCULAR VOLUME 91 fl (80-97)
[2019-10-29 16:29] LABS: ALBUMIN 2.6 g/dL (3.5-5.0); ALKALINE PHOSPHATASE 153 U/L (38-126); ASPARTATE AMINO TRANSFERASE 253 U/L (17-59); BILIRUBIN,DIRECT 0.2 mg/dL (0.0-0.4); BILIRUBIN,TOTAL 0.3 mg/dL (0.2-1.3); BLOOD UREA NITROGEN 21 mg/dL (7-20); CARBON DIOXIDE 21 mmol/L (22-30); CHLORIDE 114 mmol/L (98-107); POTASSIUM 3.5 mmol/L (3.6-5.0); TOTAL PROTEIN 5.5 g/dL (6.3-8.2)
[2019-10-29 16:35] LABS: ANION GAP 4 (5-19); GLUCOSE 47 mg/dL (75-110)
--- NOTE | 2019-10-29 18:43 | PDOC PROGRESS REPORT ---
Subjective Progress Note for:: 10/29/19 Subjective:: Mitch Hill is a 54 year old male, known to me form previous admissions who was admitted yesterday from the ED due to come planes of fatigue and not feeling well for the past several days. Per ED notes his family noted abnormal behavior and were unsure if whether or not the patient was taking his insulin. In the ED, he was noted to have a blood glucose of 1000, positive ketones. He was initially admitted in the ICU, started on IV fluids, potassium replacement, IV insulin drip. He was transferred to the floors on October 27, 2019 when his DKA has resolved. 10/28/19. He was seen and examined at bedside. Blood glucose continues to be labile. Accu-Cheks will range from 400s to 60s. Patient is unable to tell me if he has been using his insulin properly. Of note I spent at least 30 minutes during his last admission explaining his insulin regimen at home which he seems to have understood at that time. This transition to his basal bolus regimen today. He is still on D5 LR because his appetite is not back. Reason For Visit: DKA Physical Exam Vital Signs: Temp Pulse Resp BP Pulse Ox 98.1 F 71 16 168/96 H 98 10/29/19 15:50 10/29/19 15:50 10/29/19 15:50 10/29/19 15:50 10/29/19 15:50 Intake & Output 10/28/19 10/29/19 10/30/19 06:59 06:59 06:59 Intake Total 3090 2760 1178 Output Total 1525 2100 1200 Balance 1565 660 -22 Weight 53 kg 53.7 kg General appearance: PRESENT: no acute distress, cooperative Head exam: PRESENT: atraumatic, normocephalic Eye exam: PRESENT: EOMI, PERRLA Mouth exam: PRESENT: moist, neck supple Neck exam: PRESENT: full ROM Respiratory exam: PRESENT: clear to auscultation baldemar, symmetrical, unlabored Cardiovascular exam: PRESENT: RRR, +S1, +S2 Pulses: PRESENT: +2 pedal pulses bilateral GI/Abdominal exam: PRESENT: normal bowel sounds, soft. ABSENT: rebound, tenderness Extremities exam: PRESENT: full ROM Musculoskeletal exam: PRESENT: full ROM Neurological exam: PRESENT: alert, awake, oriented to person, oriented to place, oriented to time Psychiatric exam: PRESENT: flat affect Skin exam: PRESENT: normal color Results Laboratory Results: 10/29/19 15:56 10/29/19 15:56 10/29/19 10/29/19 10/29/19 05:19 15:56 15:56 WBC 3.3 L RBC 2.81 L Hgb 8.6 L Hct 25.4 L MCV 91 D MCH 30.5 MCHC 33.7 RDW 15.4 H Plt Count 122 L Seg Neutrophils % 55.2 Sodium 138.6 138.6 Potassium 3.6 3.5 L Chloride 116 H 114 H Carbon Dioxide 19 L 21 L Anion Gap 4 L 4 L BUN 28 H 21 H Creatinine 1.14 1.02 Est GFR ( Amer) > 60 > 60 Glucose 155 H 47 L Calcium 8.0 L 8.0 L Total Bilirubin 0.3 AST 253 H Alkaline Phosphatase 153 H Total Protein 5.5 L Albumin 2.6 L 10/26/19 10/26/19 10/26/19 16:09 17:19 17:19 Creatine Kinase 44 L Troponin I Cancelled < 0.012 10/26/19 10/26/19 10/27/19 19:45 22:24 02:53 Creatine Kinase 53 L 131 Troponin I 0.019 10/27/19 10/27/19 10/27/19 02:53 04:04 06:19 Creatine Kinase 183 H Troponin I 0.382 0.919 Impressions: Chest X-Ray 10/26/19 18:35 IMPRESSION: NO ACUTE RADIOGRAPHIC FINDING IN THE CHEST. Assessment and Plan - Diagnosis (1) DKA, type 1 Qualifiers: Diabetes mellitus complication detail: without coma Qualified Code(s): E10.10 - Type 1 diabetes mellitus with ketoacidosis without coma Is this a current diagnosis for this admission?: Yes Plan: - known diabetic with multiple prior admissions for DKA. Admitted again due to blood glucose of 1000 -Initially admitted in the ICU. Received IV insulin drip, IV fluids, potassium replacement -Transferred to the floors after DKA has resolved -anion gap closed -started on basal bolus -We will adjust insulin daily (2) Uncontrolled diabetes mellitus Qualifiers: Diabetes mellitus type: type 1 Glycemic state: with hyperglycemia Qualified Code(s): E10.65 - Type 1 diabetes mellitus with hyperglycemia Is this a current diagnosis for this admission?: Yes Plan: -Has history of recurrent admissions due to DKA which clearly reflects his noncompliance to his insulin regimen -A1c 10.4 -Continue basal bolus insulin -Carb controlled diet -He has been admitted multiple times for DKA and I spent considerable amount of time explaining his insulin regimen the last time he was discharged. I am not sure why he is noncompliant with his insulin. -He has very labile blood glucose readings. Accu-Cheks hypoglycemia protocol (3) Hypokalemia Is this a current diagnosis for this admission?: Yes Plan: - resolved K 3.8 - monitor daily (4) Acute metabolic encephalopathy Is this a current diagnosis for this admission?: Yes Plan: -Likely secondary to DKA -Resolved (5) CAD (coronary artery disease) Qualifiers: Coronary Disease-Associated Artery/Lesion type: [place] artery [place] vs. transplanted heart: [place] heart Associated angina: without angina Qualified Code(s): I25.10 - Atherosclerotic heart disease of [place] coronary artery without angina pectoris Is this a current diagnosis for this admission?: Yes Plan: -No chest pain -Continue carvedilol (6) ISELA (acute kidney injury) Is this a current diagnosis for this admission?: Yes Plan: -Resolved .Crea 1.45>1.02 baseline of 1.2 - due to dehydration from DKA - continue lisinopril for renoprotection - continue IV fluids as he is still not eating very well and his blood sugar would precipitously drop (7) Hypoglycemia Is this a current diagnosis for this admission?: Yes Plan: -Accu-Cheks -Hypoglycemia protocol -He has been told repeatedly that he has to eat. He denies any nausea or vomiting (8) Medically noncompliant Is this a current diagnosis for this admission?: Yes - Time Time Spent with patient: 25-34 minutes Medications reviewed and adjusted accordingly: Yes Anticipated Discharge Disposition: Home, Self Care Anticipated Discharge Timeframe: within 48 hours
[2019-10-30] MEDS: DEXTROSE 5%-NORMAL SALINE 1,000 ML IV PRN ×3 (04:29→23:07)
[2019-10-30] MEDS: PANTOPRAZOLE SODIUM 40 MG TABLET.DR PO SCH ×2 (05:35→18:34)
[2019-10-30 05:40] LABS: BLOOD UREA NITROGEN 17 mg/dL (7-20); CALCIUM 7.6 mg/dL (8.4-10.2); CARBON DIOXIDE 23 mmol/L (22-30); CHLORIDE 112 mmol/L (98-107); GLUCOSE 78 mg/dL (75-110); POTASSIUM 3.4 mmol/L (3.6-5.0)
[2019-10-30 05:41] LABS: ANION GAP 3 (5-19)
[2019-10-30] MEDS ORDERED: POTASSIUM CHLORIDE 20 MEQ PACKET PO ONE ×2 (06:42→09:30)
[2019-10-30] MEDS: INSULIN LISPRO 100 UNIT/ML 3 ML VIAL SUBCUT SCH ×7 (09:06→21:17)
[2019-10-30] MEDS: LISINOPRIL 5 MG TABLET PO SCH (09:12)
[2019-10-30] MEDS: PAROXETINE HCL 20 MG TABLET PO SCH (09:12)
[2019-10-30] MEDS: CARVEDILOL 6.25 MG TABLET PO SCH ×2 (09:13→21:13)
[2019-10-30] MEDS: INSULIN GLARGINE,HUM.REC.ANLOG 1,000 UNIT/10 ML VIAL SUBCUT SCH ×2 (09:13→21:12)
[2019-10-30] MEDS: ENOXAPARIN SODIUM INJ 30 MG/0.3 ML DISP.SYRIN SUBCUT SCH (09:13)
[2019-10-30] MEDS: FAMOTIDINE 20 MG TABLET PO SCH (09:24)
[2019-10-30] MEDS ORDERED: HYDRALAZINE HCL INJ/PF 20 MG/1 ML SDV IV PRN (20:19)
[2019-10-30] MEDS ORDERED: HYDRALAZINE HCL INJ/PF 20 MG/1 ML SDV ONE (20:19)
--- NOTE | 2019-10-30 21:21 | PDOC PROGRESS REPORT ---
Subjective Progress Note for:: 10/30/19 Subjective:: Mitch Hill is a 54 year old male, known to me form previous admissions who was admitted yesterday from the ED due to come planes of fatigue and not feeling well for the past several days. Per ED notes his family noted abnormal behavior and were unsure if whether or not the patient was taking his insulin. In the ED, he was noted to have a blood glucose of 1000, positive ketones. He was initially admitted in the ICU, started on IV fluids, potassium replacement, IV insulin drip. He was transferred to the floors on October 27, 2019 when his DKA has resolved. 10/28/19. He was seen and examined at bedside. Blood glucose continues to be labile. Accu-Cheks will range from 400s to 60s. Patient is unable to tell me if he has been using his insulin properly. Of note I spent at least 30 minutes during his last admission explaining his insulin regimen at home which he seems to have understood at that time. This transition to his basal bolus regimen today. He is still on D5 LR because his appetite is not back. 10/29/19. Seen and examined at bedside. Still with poor appetite. BG still very labile 10/30/19. Seen and examined at bedside. Episodes of both hypo and hyperglycemia. Appetite is still poor. Otherwise ISELA has resolved. Reason For Visit: DKA Physical Exam Vital Signs: Temp Pulse Resp BP Pulse Ox 98.1 F 70 16 117/58 L 98 10/30/19 20:03 10/30/19 20:03 10/30/19 20:03 10/30/19 20:53 10/30/19 20:03 Intake & Output 10/29/19 10/30/19 10/31/19 06:59 06:59 06:59 Intake Total 2760 3698 2316 Output Total 2100 2550 1775 Balance 660 1148 541 Weight 53.7 kg 59.1 kg General appearance: PRESENT: no acute distress, cooperative Head exam: PRESENT: atraumatic, normocephalic Eye exam: PRESENT: EOMI, PERRLA Mouth exam: PRESENT: moist Neck exam: PRESENT: full ROM Respiratory exam: PRESENT: clear to auscultation baldemar, symmetrical, unlabored Cardiovascular exam: PRESENT: RRR, +S1, +S2 Pulses: PRESENT: +2 pedal pulses bilateral GI/Abdominal exam: PRESENT: normal bowel sounds, soft. ABSENT: rebound, tenderness Extremities exam: PRESENT: full ROM Musculoskeletal exam: PRESENT: full ROM Neurological exam: PRESENT: alert, awake, oriented to person, oriented to place, oriented to time Psychiatric exam: PRESENT: normal mood Results Laboratory Results: 10/29/19 15:56 10/30/19 04:10 10/30/19 04:10 Sodium 137.8 Potassium 3.4 L Chloride 112 H Carbon Dioxide 23 Anion Gap 3 L BUN 17 Creatinine 0.92 Est GFR ( Amer) > 60 Glucose 78 Calcium 7.6 L 10/26/19 10/26/19 10/26/19 16:09 17:19 17:19 Creatine Kinase 44 L Troponin I Cancelled < 0.012 10/26/19 10/26/19 10/27/19 19:45 22:24 02:53 Creatine Kinase 53 L 131 Troponin I 0.019 10/27/19 10/27/19 10/27/19 02:53 04:04 06:19 Creatine Kinase 183 H Troponin I 0.382 0.919 Impressions: Chest X-Ray 10/26/19 18:35 IMPRESSION: NO ACUTE RADIOGRAPHIC FINDING IN THE CHEST. Assessment and Plan - Diagnosis (1) DKA, type 1 Qualifiers: Diabetes mellitus complication detail: without coma Qualified Code(s): E10.10 - Type 1 diabetes mellitus with ketoacidosis without coma Is this a current diagnosis for this admission?: Yes Plan: - known diabetic with multiple prior admissions for DKA. Admitted again due to blood glucose of 1000 -Initially admitted in the ICU. Received IV insulin drip, IV fluids, potassium replacement -Transferred to the floors after DKA has resolved -anion gap closed -started on basal bolus -We will adjust insulin daily (2) Uncontrolled diabetes mellitus Qualifiers: Diabetes mellitus type: type 1 Glycemic state: with hyperglycemia Qualified Code(s): E10.65 - Type 1 diabetes mellitus with hyperglycemia Is this a current diagnosis for this admission?: Yes Plan: -Has history of recurrent admissions due to DKA which clearly reflects his noncompliance to his insulin regimen -A1c 10.4 -Continue basal bolus insulin -Carb controlled diet -He has been admitted multiple times for DKA and I spent considerable amount of time explaining his insulin regimen the last time he was discharged. I am not sure why he is noncompliant with his insulin. -He has very labile blood glucose readings. Unsure how else to control his BG because he does not want to eat despite being told multiple times which would lead to hypoglycemia which leads to him skipping insulin dose which would then lead to hyperglycemia. Accu-Cheks hypoglycemia protocol (3) Hypokalemia Is this a current diagnosis for this admission?: Yes Plan: - resolved K 3.8 - monitor daily (4) Acute metabolic encephalopathy Is this a current diagnosis for this admission?: Yes Plan: -Likely secondary to DKA -Resolved (5) CAD (coronary artery disease) Qualifiers: Coronary Disease-Associated Artery/Lesion type: [place] artery [place] vs. transplanted heart: [place] heart Associated angina: without angina Qualified Code(s): I25.10 - Atherosclerotic heart disease of [place] coronary artery without angina pectoris Is this a current diagnosis for this admission?: Yes Plan: -No chest pain -Continue carvedilol (6) ISELA (acute kidney injury) Is this a current diagnosis for this admission?: Yes Plan: -Resolved .Crea 1.45>1.02 baseline of 1.2 - due to dehydration from DKA - continue lisinopril for renoprotection - continue IV fluids as he is still not eating very well and his blood sugar would precipitously drop (7) Hypoglycemia Is this a current diagnosis for this admission?: Yes Plan: -Accu-Cheks -Hypoglycemia protocol -He has been told repeatedly that he has to eat. He denies any nausea or vomiting (8) Medically noncompliant Is this a current diagnosis for this admission?: Yes - Plan Summary Summary: Patient very well-known to hospitalist team, and admitted for DKA. Was initially in the ICU. He was transferred to the floors 2 days ago. Since being transferred he still has poor appetite which would lead to hypoglycemia and skipping of his insulin which would then cause hyperglycemia. I have adjusted his insulin doses frequently because of dose. - Time Time Spent with patient: 25-34 minutes Anticipated Discharge Disposition: Home, Self Care Anticipated Discharge Timeframe: To be determined
[2019-10-31] MEDS: DEXTROSE 5%-NORMAL SALINE 1,000 ML IV PRN (05:31)
[2019-10-31] MEDS: PANTOPRAZOLE SODIUM 40 MG TABLET.DR PO SCH ×2 (05:31→17:32)
[2019-10-31 06:41] LABS: BLOOD UREA NITROGEN 14 mg/dL (7-20); CALCIUM 7.4 mg/dL (8.4-10.2); POTASSIUM 3.2 mmol/L (3.6-5.0)
[2019-10-31 06:47] LABS: CARBON DIOXIDE 23 mmol/L (22-30); CHLORIDE 109 mmol/L (98-107)
[2019-10-31 06:48] LABS: GLUCOSE 46 mg/dL (75-110)
[2019-10-31 06:54] LABS: ANION GAP 3 (5-19)
[2019-10-31] MEDS: DEXTROSE 40% GEL 15 GM TUBE PO PRN (07:10)
[2019-10-31] MEDS: DEXTROSE 50%-WATER SYRINGE 12.5 GM/25 ML DOSE IV PRN (07:27)
[2019-10-31] MEDS ORDERED: POTASSIUM CHLORIDE 10 MEQ TABLET.ER PO ONE (08:20)
[2019-10-31] MEDS: INSULIN LISPRO 100 UNIT/ML 3 ML VIAL SUBCUT SCH ×5 (08:29→22:53)
[2019-10-31] MEDS: PAROXETINE HCL 20 MG TABLET PO SCH (09:25)
[2019-10-31] MEDS: CARVEDILOL 6.25 MG TABLET PO SCH ×2 (09:25→22:50)
[2019-10-31] MEDS: FAMOTIDINE 20 MG TABLET PO SCH (09:26)
[2019-10-31] MEDS: ENOXAPARIN SODIUM INJ 30 MG/0.3 ML DISP.SYRIN SUBCUT SCH (09:27)
[2019-10-31] MEDS: LISINOPRIL 5 MG TABLET PO SCH (09:27)
[2019-10-31] MEDS ORDERED: INSULIN GLARGINE,HUM.REC.ANLOG 1,000 UNIT/10 ML VIAL SUBCUT SCH (10:00)
--- NOTE | 2019-10-31 12:22 | PDOC PROGRESS REPORT ---
Subjective Progress Note for:: 10/31/19 Subjective:: Patient is very grumpy this morning and not very cooperative with interview. He states that he was taking his insulin at home though he initially stated that he does not know. He did not eat breakfast states that he was because he was sleeping and he keeps getting woken up. He denies fever chills nausea vomiting abdominal pain. He denies encountering any problem with getting his diabetic medications. He states he does not check his blood sugar at home but states that he has a glucometer. It is uncertain if patient is telling the truth regarding all the questions being asked or if he is just answering with brief responses in order to avoid being bothered. Reason For Visit: DKA Physical Exam Vital Signs: Temp Pulse Resp BP Pulse Ox 98.0 F 68 16 159/87 H 98 10/31/19 11:23 10/31/19 11:23 10/31/19 11:23 10/31/19 11:23 10/31/19 11:23 Intake & Output 10/30/19 10/31/19 11/01/19 06:59 06:59 06:59 Intake Total 3698 4516 Output Total 2550 3500 Balance 1148 1016 Weight 59.1 kg 54.4 kg General appearance: PRESENT: no acute distress. ABSENT: cooperative Neck exam: ABSENT: JVD Respiratory exam: PRESENT: symmetrical, unlabored. ABSENT: accessory muscle use, tachypnea Neurological exam: PRESENT: alert, awake, oriented to person, oriented to place, oriented to time Psychiatric exam: PRESENT: agitated Results Laboratory Results: 10/29/19 15:56 10/31/19 05:58 10/31/19 10/31/19 05:58 05:58 Sodium 135.3 L Potassium 3.2 L Chloride 109 H Carbon Dioxide 23 Anion Gap 3 L BUN 14 Creatinine 0.74 Est GFR ( Amer) > 60 Glucose 46 L Calcium 7.4 L Albumin 2.2 L 10/26/19 10/26/19 10/26/19 16:09 17:19 17:19 Creatine Kinase 44 L Troponin I Cancelled < 0.012 10/26/19 10/26/19 10/27/19 19:45 22:24 02:53 Creatine Kinase 53 L 131 Troponin I 0.019 10/27/19 10/27/19 10/27/19 02:53 04:04 06:19 Creatine Kinase 183 H Troponin I 0.382 0.919 Impressions: Chest X-Ray 10/26/19 18:35 IMPRESSION: NO ACUTE RADIOGRAPHIC FINDING IN THE CHEST. Assessment and Plan - Diagnosis (1) Uncontrolled diabetes mellitus Qualifiers: Diabetes mellitus type: type 1 Glycemic state: with hyperglycemia Qualified Code(s): E10.65 - Type 1 diabetes mellitus with hyperglycemia Is this a current diagnosis for this admission?: Yes Plan: Has history of recurrent admissions due to DKA which clearly reflects his noncompliance to his insulin regimen A1c 10.4 Blood sugars have been labile. Reviewing his chart, he has notably had some a.m. hypoglycemic episodes as well as predinner hypoglycemia. It also seems that he is eating habits and not to regular in terms of schedule. I will discontinue his pre-meal lispro and his nighttime Lantus doses and put on Lantus 12 units daily. Discontinue D5 saline solution. Monitor his blood sugar closely and adjust his insulin regimen accordingly. (2) DKA, type 1 Qualifiers: Diabetes mellitus complication detail: without coma Qualified Code(s): E10.10 - Type 1 diabetes mellitus with ketoacidosis without coma Is this a current diagnosis for this admission?: Yes Plan: Resolved (3) Hypokalemia Is this a current diagnosis for this admission?: Yes Plan: Potassium supplementation. Check BMP in the morning. (4) Acute kidney failure Is this a current diagnosis for this admission?: Yes Plan: Resolved (5) Acute metabolic encephalopathy Is this a current diagnosis for this admission?: Yes Plan: Resolved (6) Medically noncompliant Is this a current diagnosis for this admission?: Yes - Plan Summary Summary: - Time Time Spent with patient: Less than 15 minutes Anticipated Discharge Disposition: Home, Self Care Anticipated Discharge Timeframe: within 36 hours
[2019-11-01] MEDS: HYDRALAZINE HCL INJ/PF 20 MG/1 ML SDV IV PRN ×2 (00:33→19:32)
[2019-11-01] MEDS: PANTOPRAZOLE SODIUM 40 MG TABLET.DR PO SCH ×2 (05:39→17:31)
[2019-11-01 06:31] LABS: BLOOD UREA NITROGEN 11 mg/dL (7-20); CALCIUM 7.5 mg/dL (8.4-10.2); CARBON DIOXIDE 25 mmol/L (22-30); CHLORIDE 106 mmol/L (98-107); POTASSIUM 3.5 mmol/L (3.6-5.0)
[2019-11-01 06:37] LABS: ANION GAP 4 (5-19)
[2019-11-01 06:38] LABS: GLUCOSE 59 mg/dL (75-110)
[2019-11-01] MEDS ORDERED: LISINOPRIL 10 MG TABLET PO SCH (10:00)
[2019-11-01] MEDS ORDERED: LISINOPRIL 5 MG TABLET PO SCH (10:00)
[2019-11-01] MEDS: INSULIN LISPRO 100 UNIT/ML 3 ML VIAL SUBCUT SCH ×4 (10:16→22:38)
[2019-11-01] MEDS: POTASSIUM CHLORIDE 10 MEQ TABLET.ER PO SCH (10:23)
[2019-11-01] MEDS: PAROXETINE HCL 20 MG TABLET PO SCH (10:24)
[2019-11-01] MEDS: CARVEDILOL 12.5 MG TABLET PO SCH ×2 (10:24→22:41)
[2019-11-01] MEDS: ENOXAPARIN SODIUM INJ 30 MG/0.3 ML DISP.SYRIN SUBCUT SCH (10:25)
[2019-11-01] MEDS: FAMOTIDINE 20 MG TABLET PO SCH (10:25)
--- NOTE | 2019-11-01 11:26 | RADIOLOGY REPORT (SQ) ---
EXAM DESCRIPTION: KUB/ABDOMEN (SINGLE VIEW) IMAGES COMPLETED DATE/TIME: 11/01/2019 11:12 am REASON FOR STUDY: pain COMPARISON: 09/13/2019 NUMBER OF VIEWS: One view. TECHNIQUE: Supine radiographic image of the abdomen acquired. LIMITATIONS: None. FINDINGS: BOWEL GAS PATTERN: Normal bowel gas pattern. No dilated loops. CALCIFICATIONS: Approximately 78 mm calcification is again noted overlying the right kidney. SOFT TISSUES: No gross mass or suggestion of organomegaly. HARDWARE: None in the abdomen. BONES: No acute fracture. No worrisome bone lesions. OTHER: No other significant finding. IMPRESSION: Stable KUB with probable right renal stone. Gas pattern is nonspecific. TECHNICAL DOCUMENTATION: JOB ID: [id number] 2010 [employer]- All Rights Reserved Reading location - IP/workstation name: [email or web address]
[2019-11-01] MEDS ORDERED: POLYETHYLENE GLYCOL 3350 POWDER 17 GM/1 PACKET PO ONE (11:48)
--- NOTE | 2019-11-01 18:03 | PDOC PROGRESS REPORT ---
Subjective Progress Note for:: 11/01/19 Subjective:: Patient continues to be withdrawn and very irritable. He often does not want to be spoken to. This morning he was answering questions just saying yes. Seemed altered and somewhat confused. Also refusing to eat. Ammonia level was normal. Moving all extremities. Later in the day, he was noted to be cussing out some staff. Reason For Visit: DKA Physical Exam Vital Signs: Temp Pulse Resp BP Pulse Ox 97.2 F 98 14 120/62 100 11/01/19 16:06 11/01/19 16:06 11/01/19 16:06 11/01/19 16:06 11/01/19 16:06 Intake & Output 10/31/19 11/01/19 11/02/19 06:59 06:59 06:59 Intake Total 4516 725 660 Output Total 3500 840 Balance 1016 -115 660 Weight 54.4 kg 59.3 kg General appearance: PRESENT: no acute distress, cooperative Eye exam: PRESENT: EOMI, PERRLA. ABSENT: scleral icterus Neck exam: ABSENT: JVD Respiratory exam: PRESENT: symmetrical, unlabored. ABSENT: accessory muscle use, retraction, tachypnea Cardiovascular exam: PRESENT: RRR. ABSENT: bradycardia, irregular rhythm, tachycardia GI/Abdominal exam: PRESENT: distended - mild, soft. ABSENT: rebound, rigid, tenderness Neurological exam: PRESENT: alert, awake, oriented to person, oriented to place, oriented to time, other Psychiatric exam: PRESENT: depressed, flat affect, unusual affect, other - Irritable. ABSENT: anxious Results Laboratory Results: 10/29/19 15:56 11/01/19 05:18 11/01/19 11/01/19 05:18 11:10 Sodium 134.6 L Potassium 3.5 L Chloride 106 Carbon Dioxide 25 Anion Gap 4 L BUN 11 Creatinine 0.71 Est GFR ( Amer) > 60 Glucose 59 L Calcium 7.5 L Magnesium 1.6 Ammonia 19.1 10/26/19 10/26/19 10/26/19 16:09 17:19 17:19 Creatine Kinase 44 L Troponin I Cancelled < 0.012 10/26/19 10/26/19 10/27/19 19:45 22:24 02:53 Creatine Kinase 53 L 131 Troponin I 0.019 10/27/19 10/27/1920 02:53 04:04 06:19 Creatine Kinase 183 H Troponin I 0.382 0.919 Impressions: Chest X-Ray 10/26/19 18:35 IMPRESSION: NO ACUTE RADIOGRAPHIC FINDING IN THE CHEST. KUB X-Ray 11/01/19 09:56 IMPRESSION: Stable KUB with probable right renal stone. Gas pattern is nonspecific. Assessment and Plan - Diagnosis (1) Uncontrolled diabetes mellitus Qualifiers: Diabetes mellitus type: type 1 Glycemic state: with hyperglycemia Qualified Code(s): E10.65 - Type 1 diabetes mellitus with hyperglycemia Is this a current diagnosis for this admission?: Yes Plan: Presented with DKA with BG in 1300s and A1c of 10.4 However, now blood sugars have been very labile and actually noted to have several episodes of hypoglycemia in the a.m. and as well as predinner. Likely because he is not eating much. Holding patient's Lantus and scheduled insulin and will just cover with sliding scale insulin today. Based of this I will put patient on a rather reduced dose of insulin to be using at home. His noncompliance and non-chalant attitude towards his health also makes him a poor candidate for variable insulin administration based off carb counting which ideally will help prevent some of these hypoglycemic episodes. (2) DKA, type 1 Qualifiers: Diabetes mellitus complication detail: without coma Qualified Code(s): E10.10 - Type 1 diabetes mellitus with ketoacidosis without coma Is this a current diagnosis for this admission?: Yes Plan: Resolved (3) Acute metabolic encephalopathy Is this a current diagnosis for this admission?: Yes Plan: Patient notably was confused and somewhat altered this morning. Only responding with one-word answers saying yes. However later he was noted to be answering with full sentences. Ammonia level was obtained which was negative. CVA highly unlikely as patient is moving all extremities properly. I certainly do think patient is depressed. We will check a head CT. (4) Hypokalemia Is this a current diagnosis for this admission?: Yes Plan: Potassium supplementation (5) Acute kidney failure Is this a current diagnosis for this admission?: Yes Plan: Resolved (6) Depression Qualifiers: Depression Type: unspecified Qualified Code(s): F32.9 - Major depressive disorder, single episode, unspecified Is this a current diagnosis for this admission?: Yes Plan: Patient has poor appetite, highly irritable, wants to sleep all day, withdrawn and does not want to engage in anything. TSH and free T4 levels are normal. Showing evidence of depression. I will have psychiatry see patient. Notably patient takes Paxil at home which he is receiving here. Discussed with patient's sister as well who agrees with plan. (7) Medically noncompliant Is this a current diagnosis for this admission?: Yes - Time Time Spent with patient: 15-24 minutes Anticipated Discharge Disposition: Home, Self Care Anticipated Discharge Timeframe: within 36 hours
[2019-11-01] MEDS ORDERED: INSULIN LISPRO 100 UNIT/ML 3 ML VIAL SUBCUT ONE (18:15)
--- NOTE | 2019-11-01 22:11 | RADIOLOGY REPORT (SQ) ---
CT HEAD WITHOUT THEN WITH IV CONTRAST HISTORY: Withdrawn state. Hyperglycemia. R/o Cerebral edema. COMPARISON: 09/13/2019 TECHNIQUE: CT scan of the brain was performed without IV contrast. This exam was performed according to our departmental dose-optimization program, which includes automated exposure control, adjustment of the mA and/or kV according to patient size and/or use of iterative reconstruction technique. FINDINGS: There is a focal area of hypodensity which extends to the cortex in the left frontal lobe suggestive of subacute infarction. There is also an area of encephalomalacia in the left occipital lobe, chronic. No evidence of acute infarction, intracranial hemorrhage, extra-axial fluid collection, or midline shift. No air-fluid levels are seen in the paranasal sinuses to suggest acute sinusitis. No depressed skull fracture. IMPRESSION: 1. Findings suggestive of subacute infarct in the left frontal lobe. Consider MRI for confirmation. 2. Old left occipital lobe infarct.
[2019-11-02] MEDS: HYDRALAZINE HCL INJ/PF 20 MG/1 ML SDV IV PRN (03:16)
[2019-11-02] MEDS: PANTOPRAZOLE SODIUM 40 MG TABLET.DR PO SCH ×2 (05:33→16:07)
[2019-11-02 05:53] LABS: ALBUMIN 2.4 g/dL (3.5-5.0); ALKALINE PHOSPHATASE 189 U/L (38-126); ASPARTATE AMINO TRANSFERASE 73 U/L (17-59); BILIRUBIN,DIRECT 0.3 mg/dL (0.0-0.4); BILIRUBIN,TOTAL 0.3 mg/dL (0.2-1.3); BLOOD UREA NITROGEN 13 mg/dL (7-20); CALCIUM 7.8 mg/dL (8.4-10.2); CARBON DIOXIDE 25 mmol/L (22-30); CHLORIDE 101 mmol/L (98-107); GLUCOSE 271 mg/dL (75-110); POTASSIUM 4.2 mmol/L (3.6-5.0); TOTAL PROTEIN 4.9 g/dL (6.3-8.2)
[2019-11-02 05:58] LABS: ANION GAP 5 (5-19)
[2019-11-02] MEDS ORDERED: INSULIN GLARGINE,HUM.REC.ANLOG 1,000 UNIT/10 ML VIAL SUBCUT SCH (10:00)
[2019-11-02] MEDS: INSULIN LISPRO 100 UNIT/ML 3 ML VIAL SUBCUT SCH ×4 (11:15→21:35)
[2019-11-02] MEDS: PAROXETINE HCL 20 MG TABLET PO SCH (11:20)
[2019-11-02] MEDS: ASPIRIN 81 MG TABLET, ENT COATED PO SCH (11:20)
[2019-11-02] MEDS: CARVEDILOL 12.5 MG TABLET PO SCH ×2 (11:22→21:35)
[2019-11-02] MEDS: POTASSIUM CHLORIDE 10 MEQ TABLET.ER PO SCH (11:23)
[2019-11-02] MEDS: LISINOPRIL 10 MG TABLET PO SCH ×2 (11:24→21:35)
[2019-11-02] MEDS: CLOPIDOGREL BISULFATE 75 MG TABLET PO SCH (11:24)
[2019-11-02] MEDS: FAMOTIDINE 20 MG TABLET PO SCH (11:28)
--- NOTE | 2019-11-02 11:41 | RADIOLOGY REPORT (SQ) ---
EXAM DESCRIPTION: CAROTID DOPPLER IMAGES COMPLETED DATE/TIME: 11/02/2019 11:31 am REASON FOR STUDY: stroke COMPARISON: None. TECHNIQUE: Grayscale ultrasound, Doppler velocity and spectra, and color Doppler images acquired of the extra-cranial carotid and vertebral arteries. Images stored on PACS. LIMITATIONS: None. FINDINGS: RIGHT CAROTID CCA Velocities: Within normal limits. ICA Velocities Peak systolic 0.80 m/s. End diastolic 0.25 m/s. Proximal ICA/CCA peak systolic ratio 1.2. Spectra normal. No significant plaque. LEFT CAROTID CCA Velocities: Within normal limits. ICA Velocities Peak systolic 0.97 m/s. End diastolic 0.31 m/s. Proximal ICA/CCA peak systolic ratio 1.3. Spectra normal. No significant plaque. VERTEBRAL ARTERIES: Antegrade flow. Normal waveforms. SUBCLAVIAN ARTERIES: Not imaged. OTHER: No other significant finding. IMPRESSION: NO HEMODYNAMICALLY SIGNIFICANT STENOSIS. COMMENT: Quality ID #[id number]: Velocity criteria are extrapolated from the diameter data as defined by t he Society of Radiologists in Ultrasound Consensus Conference. Radiology 2003: 229; 340-346. TECHNICAL DOCUMENTATION: JOB ID: [id number] 2010 [employer]- All Rights Reserved Reading location - IP/workstation name: [email or web address]
[2019-11-02] MEDS: ENOXAPARIN SODIUM INJ 30 MG/0.3 ML DISP.SYRIN SUBCUT SCH (11:47)
[2019-11-02] MEDS ORDERED: INSULIN GLARGINE,HUM.REC.ANLOG 1,000 UNIT/10 ML VIAL (PYX) SUBCUT ONE ×2 (12:15→13:23)
--- NOTE | 2019-11-02 17:45 | PDOC PROGRESS REPORT ---
Subjective Progress Note for:: 11/02/19 Subjective:: Patient states that he feels well today. He was able to eat breakfast. His blood sugars also is now rising. Explained to him that he did have a subacute stroke. Also discussed with his mother over the phone. Discussed plans with him. Reason For Visit: DKA Physical Exam Vital Signs: Temp Pulse Resp BP Pulse Ox 97.5 F 66 15 146/80 H 99 11/02/19 16:19 11/02/19 16:19 11/02/19 16:19 11/02/19 16:19 11/02/19 16:19 Intake & Output 11/01/19 11/02/19 11/03/19 06:59 06:59 06:59 Intake Total 725 1000 480 Output Total 840 Balance -115 1000 480 Weight 59.3 kg 58.3 kg 58.3 kg General appearance: PRESENT: no acute distress, cooperative Eye exam: PRESENT: other - left pupil is about 0.5mm larger than right but both reactive to light and accommodation Neck exam: ABSENT: JVD Respiratory exam: PRESENT: symmetrical, unlabored. ABSENT: accessory muscle use, tachypnea, wheezes Cardiovascular exam: PRESENT: RRR, +S1, +S2. ABSENT: tachycardia GI/Abdominal exam: PRESENT: soft. ABSENT: rebound, rigid, tenderness Neurological exam: PRESENT: alert, awake, aphasic - mild expressive aphasia. ABSENT: motor sensory deficit Results Laboratory Results: 10/29/19 15:56 11/02/19 05:01 11/02/19 05:01 Sodium 131.0 L Potassium 4.2 Chloride 101 Carbon Dioxide 25 Anion Gap 5 BUN 13 Creatinine 0.83 Est GFR ( Amer) > 60 Glucose 271 H Calcium 7.8 L Magnesium 1.5 L Total Bilirubin 0.3 AST 73 H Alkaline Phosphatase 189 H Total Protein 4.9 L Albumin 2.4 L 10/26/19 10/26/19 10/26/19 16:09 17:19 17:19 Creatine Kinase 44 L Troponin I Cancelled < 0.012 10/26/19 10/26/19 10/27/19 19:45 22:24 02:53 Creatine Kinase 53 L 131 Troponin I 0.019 10/27/19 10/27/19 10/27/19 02:53 04:04 06:19 Creatine Kinase 183 H Troponin I 0.382 0.919 Impressions: Chest X-Ray 10/26/19 18:35 IMPRESSION: NO ACUTE RADIOGRAPHIC FINDING IN THE CHEST. Head CT 11/01/19 00:00 IMPRESSION: 1. Findings suggestive of subacute infarct in the left frontal lobe. Consider MRI for confirmation. 2. Old left occipital lobe infarct. KUB X-Ray 11/01/19 09:56 IMPRESSION: Stable KUB with probable right renal stone. Gas pattern is nonspecific. Carotid Doppler Study 11/02/19 00:00 IMPRESSION: NO HEMODYNAMICALLY SIGNIFICANT STENOSIS. Assessment and Plan - Diagnosis (1) CVA (cerebral vascular accident) Qualifiers: CVA mechanism: unspecified Qualified Code(s): I63.9 - Cerebral infarction, unspecified Is this a current diagnosis for this admission?: Yes Plan: CT head with contrast yesterday actually picked up a subacute CVA in left frontal region which will explain his mild expressive aphasia. He does not seem to have significant motor deficits however. Also showed old known infarct in his occipital which also explains his history of vision loss. Given that it is a subacute stroke, it likely occurred somewhere between 1 week ago to 1 month ago. We will get MRI and MRA of the brain. Carotid ultrasound is unremarkable TTE from last month was unremarkable besides moderate pulmonary hypertension by echo. Aspirin, 21 days of Plavix, LDL was 30s earlier this year so atorvastatin is not indicated. Needs optimal control of blood pressure and diabetes. (2) Uncontrolled diabetes mellitus Qualifiers: Diabetes mellitus type: type 1 Glycemic state: with hyperglycemia Qualified Code(s): E10.65 - Type 1 diabetes mellitus with hyperglycemia Is this a current diagnosis for this admission?: Yes Plan: Presented with DKA with BG in 1300s and A1c of 10.4 However, now blood sugars have been very labile and actually noted to have several episodes of hypoglycemia in the a.m. and as well as predinner. Likely because he is not eating much. Holding patient's Lantus and scheduled insulin and will just cover with sliding scale insulin today. Based of this I will put patient on a rather reduced dose of insulin to be using at home. His noncompliance and non-chalant attitude towards his health also makes him a poor candidate for variable insulin administration based off carb counting which ideally will help prevent some of these hypoglycemic episodes. 11/02/2019 Patient's blood sugars are actually rising today. He is still not eating much. Actually had to give some sliding scale coverage and small dose of Lantus this morning. I will resume patient's pre-meal insulin and put patient on homolog 7 units before meals and 15 units of Lantus daily. Continue Accu-Cheks. (3) DKA, type 1 Qualifiers: Diabetes mellitus complication detail: without coma Qualified Code(s): E10.10 - Type 1 diabetes mellitus with ketoacidosis without coma Is this a current diagnosis for this admission?: Yes Plan: Resolved (4) Acute metabolic encephalopathy Is this a current diagnosis for this admission?: Yes (5) Hypokalemia Is this a current diagnosis for this admission?: Yes (6) Acute kidney failure Is this a current diagnosis for this admission?: Yes Plan: Resolved (7) Depression Qualifiers: Depression Type: unspecified Qualified Code(s): F32.9 - Major depressive disorder, single episode, unspecified Is this a current diagnosis for this admission?: Yes Plan: Patient has poor appetite, highly irritable, wants to sleep all day, withdrawn and does not want to engage in anything. TSH and free T4 levels are normal. Showing evidence of depression in setting of CVA. I will have psychiatry see patient. Notably patient takes Paxil at home which he is receiving here. (8) Medically noncompliant Is this a current diagnosis for this admission?: Yes - Time Time Spent with patient: 15-24 minutes Anticipated Discharge Disposition: Home, Self Care Anticipated Discharge Timeframe: within 36 hours
--- NOTE | 2019-11-02 21:46 | RADIOLOGY REPORT (SQ) ---
CLINICAL INDICATION: stroke protocol. MRI and MRA brain. Status change. Technique: 3-D [id number] MRA was obtained of the [place] as per standard protocol without the administration of gadolinium. 3-D angiographic reconstructions. COMPARISON: None. CORRELATION: None. FINDINGS: Brain is dictated separately. The intracranial internal carotid arteries are patent, bilaterally. Middle cerebral arteries are patent, bilaterally. Anterior cerebral arteries demonstrate atresia of the right A1 segment. Both A2 segments fill well from left circulation and a patent anterior communicating artery.. Posterior cerebral arteries are patent, bilaterally. Anterior communicating artery is patent. Posterior communicating arteries are not seen. If truly absent this is merely an anatomic variant. Vertebrobasilar system is patent. Left vertebral dominance IMPRESSION: Unremarkable MRA of the [place]. Anatomic variant, as described
--- NOTE | 2019-11-02 21:49 | RADIOLOGY REPORT (SQ) ---
MRI of the brain without intravenous contrast: 11/02/2019 8:45 PM CDT INDICATION: 54-year-old patient with concern for stroke, subacute infarct COMPARISON: CT the head from 11/01/2019 TECHNIQUE: Sagittal T1; axial diffusion, ADC, T2, FLAIR, gradient echo images through the brain were obtained without intravenous contrast administered. FINDINGS: There is mild prominence of the cerebral sulci and ventricles, suggestive of cerebral atrophy. Mild nonspecific periventricular hyperintense signal is also seen, which may reflect chronic microvascular ischemia. There is restricted diffusion seen at the left frontal lobe. There is inseparable malacia seen along the left posterior occipital lobe. The cervicomedullary junction is unremarkable. The visualized orbits also appear unremarkable. No extra-axial fluid collection is seen. No midline shift or mass effect is seen. The visualized vascular flow voids appear normal. The cerebellopontine angles appear normal. No abnormal signal is seen to suggest acute hemorrhage. The hadley-white matter differentiation is normal. No focal signal abnormality is seen. There is moderate compressive thickening at the ethmoid sinuses. IMPRESSION: 1. There is restricted diffusion at the left posterior left frontal lobe consistent with a subacute infarct. 2. Mild cerebral atrophy and periventricular white matter changes are seen.
--- NOTE | 2019-11-02 22:03 | EKG REPORT ---
SEVERITY:- ABNORMAL ECG - SINUS RHYTHM LOW VOLTAGE IN FRONTAL LEADS CONSIDER LEFT VENTRICULAR HYPERTROPHY ANTERIOR Q WAVES, POSSIBLY DUE TO LVH BORDERLINE T ABNORMALITIES, INFERIOR LEADS BORDERLINE PROLONGED QT INTERVAL : Confirmed by: Dannielle Joshi MD 02-Nov-2019 22:01:39
[2019-11-03] MEDS: PANTOPRAZOLE SODIUM 40 MG TABLET.DR PO SCH ×2 (05:19→17:23)
[2019-11-03] MEDS ORDERED: INSULIN LISPRO 100 UNIT/ML 3 ML VIAL SUBCUT SCH (08:00)
[2019-11-03] MEDS: INSULIN LISPRO 100 UNIT/ML 3 ML VIAL SUBCUT SCH ×7 (10:16→22:14)
[2019-11-03] MEDS: LISINOPRIL 10 MG TABLET PO SCH ×2 (10:45→22:15)
[2019-11-03] MEDS: ENOXAPARIN SODIUM INJ 30 MG/0.3 ML DISP.SYRIN SUBCUT SCH (10:46)
[2019-11-03] MEDS: POTASSIUM CHLORIDE 10 MEQ TABLET.ER PO SCH (10:46)
[2019-11-03] MEDS: ASPIRIN 81 MG TABLET, ENT COATED PO SCH (10:46)
[2019-11-03] MEDS: CARVEDILOL 12.5 MG TABLET PO SCH ×2 (10:46→22:15)
[2019-11-03] MEDS: PAROXETINE HCL 20 MG TABLET PO SCH (10:46)
[2019-11-03] MEDS: FAMOTIDINE 20 MG TABLET PO SCH (10:46)
[2019-11-03] MEDS: CLOPIDOGREL BISULFATE 75 MG TABLET PO SCH (10:46)
[2019-11-03] MEDS: INSULIN GLARGINE,HUM.REC.ANLOG 1,000 UNIT/10 ML VIAL SUBCUT SCH (10:47)
--- NOTE | 2019-11-03 18:18 | PDOC PROGRESS REPORT ---
Subjective Progress Note for:: 11/03/19 Subjective:: Patient is doing well today. He denies fever or chills. He is eating more today. Reason For Visit: DKA Physical Exam Vital Signs: Temp Pulse Resp BP Pulse Ox 98.4 F 70 18 146/76 H 96 11/03/19 14:38 11/03/19 14:38 11/03/19 14:38 11/03/19 14:38 11/03/19 14:38 Intake & Output 11/02/19 11/03/19 11/04/19 06:59 06:59 06:59 Intake Total 1000 1160 720 Balance 1000 1160 720 Weight 58.3 kg 56.7 kg General appearance: PRESENT: no acute distress, cooperative Neck exam: ABSENT: JVD Respiratory exam: PRESENT: clear to auscultation [place], unlabored. ABSENT: wheezes Cardiovascular exam: PRESENT: +S1, +S2. ABSENT: tachycardia Neurological exam: PRESENT: alert, awake, aphasic Results Laboratory Results: 10/29/19 15:56 11/02/19 05:01 10/26/19 10/26/19 10/26/19 16:09 17:19 17:19 Creatine Kinase 44 L Troponin I Cancelled < 0.012 10/26/19 10/26/19 10/27/19 19:45 22:24 02:53 Creatine Kinase 53 L 131 Troponin I 0.019 10/27/19 10/27/19 10/27/19 02:53 04:04 06:19 Creatine Kinase 183 H Troponin I 0.382 0.919 Impressions: Chest X-Ray 10/26/19 18:35 IMPRESSION: NO ACUTE RADIOGRAPHIC FINDING IN THE CHEST. Head CT 11/01/19 00:00 IMPRESSION: 1. Findings suggestive of subacute infarct in the left frontal lobe. Consider MRI for confirmation. 2. Old left occipital lobe infarct. KUB X-Ray 11/01/19 09:56 IMPRESSION: Stable KUB with probable right renal stone. Gas pattern is nonspecific. Brain MRI with MRA 11/02/19 00:00 IMPRESSION: Unremarkable MRA of the [place]. Anatomic variant, as described Carotid Doppler Study 11/02/19 00:00 IMPRESSION: NO HEMODYNAMICALLY SIGNIFICANT STENOSIS. Head MRI 11/02/19 00:00 IMPRESSION: 1. There is restricted diffusion at the left posterior left frontal lobe consistent with a subacute infarct. 2. Mild cerebral atrophy and periventricular white matter changes are seen. Assessment and Plan - Diagnosis (1) CVA (cerebral vascular accident) Qualifiers: CVA mechanism: unspecified Qualified Code(s): I63.9 - Cerebral infarction, unspecified Is this a current diagnosis for this admission?: Yes Plan: CT head and MRI confirmed subacute CVA in left frontal region which will explain his mild expressive aphasia. He does not seem to have significant motor deficits however. Also showed old known infarct in his occipital which also explains his history of vision loss. Given that it is a subacute stroke, it likely occurred somewhere between 1 week ago to 1 month ago. MRA brain is unimpressive Carotid ultrasound is unremarkable TTE from last month was unremarkable besides moderate pulmonary hypertension by echo. Aspirin, 21 days of Plavix, LDL was 30s earlier this year so atorvastatin is not indicated. Needs optimal control of blood pressure and diabetes. Working on getting patient to SNF (2) Uncontrolled diabetes mellitus Qualifiers: Diabetes mellitus type: type 1 Glycemic state: with hyperglycemia Qualified Code(s): E10.65 - Type 1 diabetes mellitus with hyperglycemia Is this a current diagnosis for this admission?: Yes Plan: Presented with DKA with BG in 1300s and A1c of 10.4 However, now blood sugars have been very labile and actually noted to have several episodes of hypoglycemia in the a.m. and as well as predinner. Likely because he is not eating much. Holding patient's Lantus and scheduled insulin and will just cover with sliding scale insulin today. Based of this I will put patient on a rather reduced dose of insulin to be using at home. His noncompliance and non-chalant attitude towards his health also makes him a poor candidate for variable insulin administration based off carb counting which ideally will help prevent some of these hypoglycemic episodes. 11/02/2019 Patient's blood sugars are actually rising today. He is still not eating much. Actually had to give some sliding scale coverage and small dose of Lantus this morning. I will resume patient's pre-meal insulin and put patient on homolog 7 units before meals and 15 units of Lantus daily. Continue Accu-Cheks. 11/03/2019 Lantus 15 units daily and Humalog 6 units before meals. He was noted to get hypoglycemic later this afternoon after receiving Humalog 9 units and Lantus as well this morning. (3) DKA, type 1 Qualifiers: Diabetes mellitus complication detail: without coma Qualified Code(s): E10.10 - Type 1 diabetes mellitus with ketoacidosis without coma Is this a current diagnosis for this admission?: Yes (4) Acute metabolic encephalopathy Is this a current diagnosis for this admission?: Yes (5) Hypokalemia Is this a current diagnosis for this admission?: Yes (6) Acute kidney failure Is this a current diagnosis for this admission?: Yes (7) Depression Qualifiers: Depression Type: unspecified Qualified Code(s): F32.9 - Major depressive disorder, single episode, unspecified Is this a current diagnosis for this admission?: Yes (8) Medically noncompliant Is this a current diagnosis for this admission?: Yes - Time Time Spent with patient: Less than 15 minutes Anticipated Discharge Disposition: [facility] Anticipated Discharge Timeframe: when bed available
--- NOTE | 2019-11-03 21:26 | EKG REPORT ---
SEVERITY:- ABNORMAL ECG - SINUS RHYTHM LEFT ANTERIOR FASCICULAR BLOCK CONSIDER LEFT VENTRICULAR HYPERTROPHY ANTERIOR Q WAVES, POSSIBLY DUE TO LVH BORDERLINE PROLONGED QT INTERVAL : Confirmed by: Dannielle Joshi MD 03-Nov-2019 21:26:11
[2019-11-04] MEDS: PANTOPRAZOLE SODIUM 40 MG TABLET.DR PO SCH ×2 (05:10→17:27)
[2019-11-04] MEDS: INSULIN LISPRO 100 UNIT/ML 3 ML VIAL SUBCUT SCH ×3 (08:02→17:28)
[2019-11-04] MEDS: CHLORTHALIDONE 25 MG TABLET PO SCH (08:19)
[2019-11-04] MEDS: ENOXAPARIN SODIUM INJ 30 MG/0.3 ML DISP.SYRIN SUBCUT SCH (09:19)
[2019-11-04] MEDS: PAROXETINE HCL 20 MG TABLET PO SCH (09:47)
[2019-11-04] MEDS: ASPIRIN 81 MG TABLET, ENT COATED PO SCH (09:47)
[2019-11-04] MEDS: FAMOTIDINE 20 MG TABLET PO SCH (09:47)
[2019-11-04] MEDS: POTASSIUM CHLORIDE 10 MEQ TABLET.ER PO SCH (09:47)
[2019-11-04] MEDS: CLOPIDOGREL BISULFATE 75 MG TABLET PO SCH (09:47)
[2019-11-04] MEDS: LISINOPRIL 10 MG TABLET PO SCH ×2 (09:47→21:35)
[2019-11-04] MEDS: INSULIN GLARGINE,HUM.REC.ANLOG 1,000 UNIT/10 ML VIAL SUBCUT SCH (11:26)
[2019-11-04] MEDS ORDERED: CARVEDILOL 12.5 MG TABLET PO SCH (11:30)
[2019-11-04] MEDS ORDERED: HYDRALAZINE HCL INJ/PF 20 MG/1 ML SDV IV ONE (11:30)
--- NOTE | 2019-11-04 13:48 | PDOC PROGRESS REPORT ---
Subjective Progress Note for:: 11/04/19 Subjective:: Patient feels well today. His blood pressure is high today. Reason For Visit: DKA Physical Exam Vital Signs: Temp Pulse Resp BP Pulse Ox 97.4 F 70 18 194/88 H 98 11/04/19 08:51 11/04/19 10:44 11/04/19 07:40 11/04/19 10:44 11/04/19 07:40 Intake & Output 11/03/19 11/04/19 11/05/19 06:59 06:59 06:59 Intake Total 1160 1041 375 Balance 1160 1041 375 Weight 56.7 kg 55.5 kg General appearance: PRESENT: no acute distress, cooperative Neck exam: ABSENT: JVD Respiratory exam: PRESENT: unlabored. ABSENT: wheezes Cardiovascular exam: PRESENT: +S1, +S2. ABSENT: tachycardia Neurological exam: PRESENT: alert, awake, oriented to person, oriented to place, aphasic Results Laboratory Results: 10/29/19 15:56 11/02/19 05:01 10/26/19 10/26/19 10/26/19 16:09 17:19 17:19 Creatine Kinase 44 L Troponin I Cancelled < 0.012 10/26/19 10/26/19 10/27/19 19:45 22:24 02:53 Creatine Kinase 53 L 131 Troponin I 0.019 10/27/19 10/27/19 10/27/19 02:53 04:04 06:19 Creatine Kinase 183 H Troponin I 0.382 0.919 Impressions: Chest X-Ray 10/26/19 18:35 IMPRESSION: NO ACUTE RADIOGRAPHIC FINDING IN THE CHEST. Head CT 11/01/19 00:00 IMPRESSION: 1. Findings suggestive of subacute infarct in the left frontal lobe. Consider MRI for confirmation. 2. Old left occipital lobe infarct. KUB X-Ray 11/01/19 09:56 IMPRESSION: Stable KUB with probable right renal stone. Gas pattern is nonspecific. Brain MRI with MRA 11/02/19 00:00 IMPRESSION: Unremarkable MRA of the [place]. Anatomic variant, as described Carotid Doppler Study 11/02/19 00:00 IMPRESSION: NO HEMODYNAMICALLY SIGNIFICANT STENOSIS. Head MRI 11/02/19 00:00 IMPRESSION: 1. There is restricted diffusion at the left posterior left frontal lobe consistent with a subacute infarct. 2. Mild cerebral atrophy and periventricular white matter changes are seen. Assessment and Plan - Diagnosis (1) CVA (cerebral vascular accident) Qualifiers: CVA mechanism: unspecified Qualified Code(s): I63.9 - Cerebral infarction, unspecified Is this a current diagnosis for this admission?: Yes Plan: CT head and MRI confirmed subacute CVA in left frontal region which will explain his mild expressive aphasia. He does not seem to have significant motor deficits however. Also showed old known infarct in his occipital which also explains his history of vision loss. Given that it is a subacute stroke, it likely occurred somewhere between 1 week ago to 1 month ago. MRA brain is unimpressive Carotid ultrasound is unremarkable TTE from last month was unremarkable besides moderate pulmonary hypertension by echo. Aspirin, 21 days of Plavix, LDL was 30s earlier this year so atorvastatin is not indicated. Needs optimal control of blood pressure and diabetes. Working on getting patient to SNF (2) Uncontrolled diabetes mellitus Qualifiers: Diabetes mellitus type: type 1 Glycemic state: with hyperglycemia Qualified Code(s): E10.65 - Type 1 diabetes mellitus with hyperglycemia Is this a current diagnosis for this admission?: Yes Plan: Has very labile blood sugars. Lantus 15 units daily and Humalog 6 units before meals. (3) Hypertension Qualifiers: Hypertension type: essential hypertension Qualified Code(s): I10 - Essential (primary) hypertension Is this a current diagnosis for this admission?: Yes Plan: Blood pressure is uncontrolled this morning. We will try treating his blood pressure regimen. Noted to be in hypertensive urgency. Did get some IV hydralazine. Coreg 6.25 every 12 hours Lisinopril 20 mg every 12 hours Chlorthalidone 25 mg daily (4) Acute metabolic encephalopathy Is this a current diagnosis for this admission?: Yes Plan: Likely secondary to stroke and depression (5) Depression Qualifiers: Depression Type: unspecified Qualified Code(s): F32.9 - Major depressive disorder, single episode, unspecified Is this a current diagnosis for this admission?: Yes Plan: Patient has poor appetite, highly irritable, wants to sleep all day, withdrawn and does not want to engage in anything. TSH and free T4 levels are normal. Showing evidence of depression in setting of CVA. Notably patient takes Paxil a t home which he is receiving here. Still awaiting psych assessment. (6) Hypokalemia Is this a current diagnosis for this admission?: Yes (7) Acute kidney failure Is this a current diagnosis for this admission?: Yes Plan: Resolved (8) DKA, type 1 Qualifiers: Diabetes mellitus complication detail: without coma Qualified Code(s): E10.10 - Type 1 diabetes mellitus with ketoacidosis without coma Is this a current diagnosis for this admission?: Yes Plan: Resolved - Time Time Spent with patient: Less than 15 minutes Anticipated Discharge Disposition: Long Term Facility Anticipated Discharge Timeframe: when bed available
--- NOTE | 2019-11-04 14:31 | PSYCHOLOGICAL NOTE ---
Psych Note - Psych Note Date seen by psych provider: 11/02/19 Time seen by psych provider: 12:00 Psych Note: Reason for Consult: Depression Medication recommendation per [facility]'s contract psychiatrist are as follows: Trileptal 600mg every morning and 300mg every evening Buspar 5mg Twice daily Impression/Plan: patient is cleared from acute psychiatric services. Patient discloses depression but denies wanting to . There is some concern of cognitive processes as patient has difficulty focusing and needs questions repeated different ways to understand. Attending nurse reports burgos mood changes and extremely poor verbal impulse control. Head CT indicates neuro degenerative processes in addition to both old and new probable infarcts. The probable need for additional services for rehab and/or continued assistance in self care are high. Medication recommendations have been provided. Dr. Harrison was consulted on the care and management of this patient.
[2019-11-04] MEDS ORDERED: HYDRALAZINE HCL INJ/PF 20 MG/1 ML SDV IV PRN (23:56)
[2019-11-05] MEDS: PANTOPRAZOLE SODIUM 40 MG TABLET.DR PO SCH ×2 (06:09→17:10)
[2019-11-05] MEDS ORDERED: HYDRALAZINE HCL INJ/PF 20 MG/1 ML SDV IV PRN (07:47)
[2019-11-05] MEDS: CHLORTHALIDONE 25 MG TABLET PO SCH (08:37)
[2019-11-05] MEDS: INSULIN LISPRO 100 UNIT/ML 3 ML VIAL SUBCUT SCH ×3 (08:37→17:10)
[2019-11-05] MEDS ORDERED: AMLODIPINE BESYLATE 2.5 MG TABLET PO SCH (10:00)
[2019-11-05] MEDS: ENOXAPARIN SODIUM INJ 30 MG/0.3 ML DISP.SYRIN SUBCUT SCH (10:46)
[2019-11-05] MEDS: PAROXETINE HCL 20 MG TABLET PO SCH (10:46)
[2019-11-05] MEDS: INSULIN GLARGINE,HUM.REC.ANLOG 1,000 UNIT/10 ML VIAL SUBCUT SCH (10:47)
[2019-11-05] MEDS: LISINOPRIL 10 MG TABLET PO SCH ×2 (10:47→22:21)
[2019-11-05] MEDS: FAMOTIDINE 20 MG TABLET PO SCH (10:47)
[2019-11-05] MEDS: POTASSIUM CHLORIDE 10 MEQ TABLET.ER PO SCH (10:47)
[2019-11-05] MEDS: ASPIRIN 81 MG TABLET, ENT COATED PO SCH (10:47)
[2019-11-05] MEDS: CLOPIDOGREL BISULFATE 75 MG TABLET PO SCH (10:47)
--- NOTE | 2019-11-05 11:10 | PDOC PROGRESS REPORT ---
Subjective Progress Note for:: 11/05/19 Subjective:: Patient is doing well. Has no complaints. Blood pressure still on the high side in the morning. Reason For Visit: DKA Physical Exam Vital Signs: Temp Pulse Resp BP Pulse Ox 98.5 F 76 16 189/90 H 96 11/05/19 08:46 11/05/19 07:53 11/05/19 07:53 11/05/19 07:53 11/05/19 07:53 Intake & Output 11/04/19 11/05/19 11/06/19 06:59 06:59 06:59 Intake Total 1041 925 Balance 1041 925 Weight 55.5 kg 55.9 kg General appearance: PRESENT: no acute distress, cooperative Neck exam: ABSENT: JVD Respiratory exam: PRESENT: unlabored. ABSENT: tachypnea Neurological exam: PRESENT: alert, awake, aphasic Results Laboratory Results: 10/29/19 15:56 11/02/19 05:01 10/26/19 10/26/19 10/26/19 16:09 17:19 17:19 Creatine Kinase 44 L Troponin I Cancelled < 0.012 10/26/19 10/26/19 10/27/19 19:45 22:24 02:53 Creatine Kinase 53 L 131 Troponin I 0.019 10/27/19 10/27/19 10/27/19 02:53 04:04 06:19 Creatine Kinase 183 H Troponin I 0.382 0.919 Impressions: Chest X-Ray 10/26/19 18:35 IMPRESSION: NO ACUTE RADIOGRAPHIC FINDING IN THE CHEST. Head CT 11/01/19 00:00 IMPRESSION: 1. Findings suggestive of subacute infarct in the left frontal lobe. Consider MRI for confirmation. 2. Old left occipital lobe infarct. KUB X-Ray 11/01/19 09:56 IMPRESSION: Stable KUB with probable right renal stone. Gas pattern is nonspecific. Brain MRI with MRA 11/02/19 00:00 IMPRESSION: Unremarkable MRA of the [place]. Anatomic variant, as described Carotid Doppler Study 11/02/19 00:00 IMPRESSION: NO HEMODYNAMICALLY SIGNIFICANT STENOSIS. Head MRI 11/02/19 00:00 IMPRESSION: 1. There is restricted diffusion at the left posterior left frontal lobe consistent with a subacute infarct. 2. Mild cerebral atrophy and periventricular white matter changes are seen. Assessment and Plan - Diagnosis (1) CVA (cerebral vascular accident) Qualifiers: CVA mechanism: unspecified Qualified Code(s): I63.9 - Cerebral infarction, unspecified Is this a current diagnosis for this admission?: Yes Plan: CT head and MRI confirmed subacute CVA in left frontal region which will explain his mild expressive aphasia. He does not seem to have significant motor deficits however. Also showed old known infarct in his occipital which also explains his history of vision loss. Given that it is a subacute stroke, it likely occurred somewhere between 1 week ago to 1 month ago. MRA brain is unimpressive Carotid ultrasound is unremarkable TTE from last month was unremarkable besides moderate pulmonary hypertension by echo. Aspirin, 21 days of Plavix, LDL was 30s earlier this year so atorvastatin is not indicated. Needs optimal control of blood pressure and diabetes. Planning for r discharge to [facility] tomorrow (2) Uncontrolled diabetes mellitus Qualifiers: Diabetes mellitus type: type 1 Glycemic state: with hyperglycemia Qualified Code(s): E10.65 - Type 1 diabetes mellitus with hyperglycemia Is this a current diagnosis for this admission?: Yes Plan: Has very labile blood sugars. Lantus 15 units daily Increase prebreakfast dose of lispro to 8 units starting tomorrow. Continue 6 units Humalog before lunch and dinner. (3) Hypertension Qualifiers: Hypertension type: essential hypertension Qualified Code(s): I10 - Essential (primary) hypertension Is this a current diagnosis for this admission?: Yes Plan: Blood pressure is uncontrolled this morning. We will try treating his blood pressure regimen. Noted to be in hypertensive urgency. Coreg 6.25 every 12 hours Lisinopril 20 mg every 12 hours Chlorthalidone 25 mg daily Add amlodipine 2.5 mg twice a day. (4) Acute metabolic encephalopathy Is this a current diagnosis for this admission?: Yes Plan: Likely secondary to stroke and depression (5) Depression Qualifiers: Depression Type: unspecified Qualified Code(s): F32.9 - Major depressive disorder, single episode, unspecified Is this a current diagnosis for this admission?: Yes Plan: Patient has poor appetite, highly irritable, wants to sleep all day, withdrawn and does not want to engage in anything. TSH and free T4 levels are normal. Showing evidence of depression in setting of CVA. Seen by psychiatry. Start on Trileptal and buspirone (6) Hypokalemia Is this a current diagnosis for this admission?: Yes Plan: Potassium supplementation (7) Acute kidney failure Is this a current diagnosis for this admission?: Yes Plan: Resolved (8) DKA, type 1 Qualifiers: Diabetes mellitus complication detail: without coma Qualified Code(s): E10.10 - Type 1 diabetes mellitus with ketoacidosis without coma Is this a current diagnosis for this admission?: Yes Plan: Resolved - Time Anticipated Discharge Disposition: Nursing Home Facility Anticipated Discharge Timeframe: within 24 hours
[2019-11-05] MEDS: BUSPIRONE HCL 10 MG TABLET PO SCH ×2 (13:31→22:21)
[2019-11-05] MEDS: NIFEDIPINE 30 MG TAB.ER.24 PO SCH (19:03)
[2019-11-05] MEDS: OXCARBAZEPINE 150 MG TABLET PO SCH (22:20)
[2019-11-06] MEDS: PANTOPRAZOLE SODIUM 40 MG TABLET.DR PO SCH ×2 (06:23→17:02)
[2019-11-06] MEDS ORDERED: INSULIN LISPRO 100 UNIT/ML 3 ML VIAL SUBCUT SCH (08:00)
[2019-11-06] MEDS: POTASSIUM CHLORIDE 10 MEQ TABLET.ER PO SCH (09:49)
[2019-11-06] MEDS: LISINOPRIL 10 MG TABLET PO SCH (09:49)
[2019-11-06] MEDS: ASPIRIN 81 MG TABLET, ENT COATED PO SCH (09:49)
[2019-11-06] MEDS: CHLORTHALIDONE 25 MG TABLET PO SCH (09:49)
[2019-11-06] MEDS: OXCARBAZEPINE 150 MG TABLET PO SCH (09:49)
[2019-11-06] MEDS: CLOPIDOGREL BISULFATE 75 MG TABLET PO SCH (09:50)
[2019-11-06] MEDS: BUSPIRONE HCL 10 MG TABLET PO SCH (09:50)
[2019-11-06] MEDS: FAMOTIDINE 20 MG TABLET PO SCH (09:50)
[2019-11-06] MEDS: NIFEDIPINE 30 MG TAB.ER.24 PO SCH (10:12)
[2019-11-06] MEDS: ENOXAPARIN SODIUM INJ 30 MG/0.3 ML DISP.SYRIN SUBCUT SCH (10:36)
[2019-11-06] MEDS: INSULIN LISPRO 100 UNIT/ML 3 ML VIAL SUBCUT SCH ×2 (12:10→17:02)
[2019-11-06] MEDS: INSULIN GLARGINE,HUM.REC.ANLOG 1,000 UNIT/10 ML VIAL SUBCUT SCH (12:11)
--- NOTE | 2019-11-06 12:39 | PDOC TRANSFER SUMMARY ---
Impression - Admit/DC Date/PCP Admission Date/Primary Care Provider: 10/26/19 19:42 ALFONSO OVALLE PA-C Discharge Date: 11/06/19 - Discharge Diagnosis (1) DKA, type 1 Is this a current diagnosis for this admission?: Yes (2) CVA (cerebral vascular accident) Is this a current diagnosis for this admission?: Yes (3) Uncontrolled diabetes mellitus Is this a current diagnosis for this admission?: Yes (4) Hypertension Is this a current diagnosis for this admission?: Yes (5) Acute metabolic encephalopathy Is this a current diagnosis for this admission?: Yes (6) Depression Is this a current diagnosis for this admission?: Yes (7) Hypokalemia Is this a current diagnosis for this admission?: Yes (8) Acute kidney failure Is this a current diagnosis for this admission?: Yes - Additional Information Resuscitation Status: Full Code Referrals: ALFONSO OVALLE PA-C [Primary Care Provider] - 10/30/19 12:45 pm Home Medications: Carvedilol [Coreg 6.25 mg Tablet] 6.25 mg PO Q12 #60 tablet 08/09/19 Lisinopril [Prinivil 5 mg Tablet] 10 mg PO DAILY 30 Days #30 tablet 09/19/19 Pantoprazole Sodium [Protonix [address] Tablet] 40 mg PO BID@0600,1700 #60 tablet.dr 10/05/19 Aspirin [Ecotrin 81 mg EC Tablet] 81 mg PO DAILY tabec 11/06/19 Buspirone HCl [Buspar 10 mg Tablet] 5 mg PO Q12 tablet 11/06/19 Chlorthalidone [Hygroton 25 mg Tablet] 25 mg PO QAM tablet 11/06/19 Clopidogrel Bisulfate [Plavix 75 mg Tablet] 75 mg PO DAILY tablet 11/06/19 Insulin Glargine,Hum.rec.anlog [Lantus Insulin 100 Unit/1 ml 10 ml] 15 unit SUBCUT DAILY unit 11/06/19 Insulin Lispro [Humalog Insulin (Lispro) 100 unit/mL] 6 unit SUBCUT BIDACLS unit 11/06/19 Insulin Lispro [Humalog Insulin (Lispro) 100 unit/mL] 8 unit SUBCUT ACBRKFST unit 11/06/19 Nifedipine [Procardia XL 30 mg Tablet] 30 mg PO Q12 tab.er.24 11/06/19 Oxcarbazepine [Trileptal 150 mg Tablet] 300 mg PO Q12 tablet 11/06/19 Potassium Chloride [Klor-Con 10 Meq Tablet ER] 20 meq PO DAILY tablet.er 11/06/19 History of Present Illiness History of Present Illness: According to admitting provider: 54 year old white male who presented to [facility] with complaints of general fatigue and not feeling well for a few days. The patient was seen by the ER provider and found to have a blood sugar over 1000 and was in DKA. The patient does have a past history of diabetes with multiple admissions for DKA. The patient does have a history of substance abuse and ETOH abuse. Hospital Course Hospital Course: Patient initially admitted directly to the ICU after presenting with malaise, metabolic encephalopathy and nausea. He was found to be in DKA and admitted to the ICU and placed on an insulin drip. Blood gas on initial presentation showed pH of 6.81, PCO2 of 16.9 and bicarbonate of 2.6. His blood sugar at the time was 1300. He was started on insulin infusion and DKA protocol. His DKA later resolved. He was subsequently transitioned to subcutaneous insulin and transferred out of the ICU. He did also have ISELA with creatinine of 1.9 initially. After receiving IV fluids, this resolved. His last measured creatinine was 0.8. He was still noticed to have her usual and somewhat flat or withdrawn affect, anhedonia was having a very poor appetite. He also had significantly decreased energy levels fatigue and mild expressive aphasia. Of note he does have a history of a prior stroke with some visual deficits. CT of the head was obtained which revealed a subacute CVA involving his left frontal region and was confirmed on MRI. Given the sub-acuity of his symptoms, it is suspected that he had a stroke somewhere between 1 month prior or 1 week prior to the imaging. MRA was unremarkable. Carotid ultrasound also unremarkable. He has had a recent echocardiogram which had not shown any intramural thrombus. Was started on aspirin 81 mg daily. He is also to continue Plavix to complete 21 days on 11/23/2019. Statin therapy is not indicated as patient had an LDL of 3 just 4 months ago. Regarding patient's diabetes, hemoglobin A1c was 10. It has taken several adjustments to find an acceptable regimen for patient's diabetes due to multiple episodes of hypoglycemia. His blood sugar will still need to be further optimized so we will need to be monitored closely. He will be discharged on Lantus 15 units daily in the morning and lispro 8 units before breakfast and 6 units before lunch and dinner. Adjust as needed but be mindful of patient's labile blood sugars. Patient's hypertensive urgency is also being treated with Coreg, lisinopril, chlorthalidone and nifedipine was added. Monitor for hypotension which may warrant de-escalation of therapy. Patient is certainly suffering depression especially given his poor appetite, high irritability, excessive sleepiness, withdrawn state and anhedonia. TSH and free T4 levels were normal. He was evaluated by psychiatry and started on Trileptal and buspirone. He will need outpatient follow-up with psychiatry. Physical Exam Vital Signs: Temp Pulse Resp BP Pulse Ox 97.9 F 91 17 120/80 99 11/06/19 11:48 11/06/19 11:48 11/06/19 11:48 11/06/19 11:48 11/06/19 11:48 Intake & Output 11/05/19 11/06/19 11/07/19 06:59 06:59 06:59 Intake Total 925 2274 Balance 925 2274 Weight 55.9 kg 51 kg General appearance: PRESENT: no acute distress, cooperative Eye exam: ABSENT: PERRLA - Pupils are reactive to light and accommodation but left pupil is only slightly bigger than right Neck exam: ABSENT: JVD Respiratory exam: PRESENT: symmetrical, unlabored. ABSENT: accessory muscle use, retraction, tachypnea, wheezes Cardiovascular exam: PRESENT: RRR, +S1, +S2. ABSENT: tachycardia GI/Abdominal exam: PRESENT: soft. ABSENT: rebound, rigid, tenderness Neurological exam: PRESENT: alert, awake, oriented to person, oriented to place, aphasic. ABSENT: motor sensory deficit Psychiatric exam: PRESENT: depressed, unusual affect. ABSENT: agitated, anxious Focused psych exam: ABSENT: internal stimuli, pressured speech, restlessness Skin exam: ABSENT: jaundice Results Laboratory Results: WBC 3.3 10^3/uL (4.0-10.5) L 10/29/19 15:56 RBC 2.81 10^6/uL (4.35-5.55) L 10/29/19 15:56 Hgb 8.6 g/dL (13.5-17.0) L 10/29/19 15:56 Hct 25.4 % (37.9-51.0) L 10/29/19 15:56 MCV 91 fl (80-97) D 10/29/19 15:56 MCH 30.5 pg (27.0-33.4) 10/29/19 15:56 MCHC 33.7 g/dL (32.0-36.0) 10/29/19 15:56 RDW 15.4 % (11.5-14.0) H 10/29/19 15:56 Plt Count 122 10^3/uL (150-450) L 10/29/19 15:56 Lymph % (Auto) 30.4 % (13-45) 10/29/19 15:56 [place] % (Auto) 11.3 % (3-13) 10/29/19 15:56 Eos % (Auto) 2.1 % (0-6) 10/29/19 15:56 Baso % (Auto) 1.0 % (0-2) 10/29/19 15:56 Absolute Neuts (auto) 1.8 10^3/uL (1.7-8.2) 10/29/19 15:56 Absolute Lymphs (auto) 1.0 10^3/uL (0.5-4.7) 10/29/19 15:56 Absolute Monos (auto) 0.4 10^3/uL (0.1-1.4) 10/29/19 15:56 Absolute Eos (auto) 0.1 10^3/uL (0.0-0.6) 10/29/19 15:56 Absolute Basos (auto) 0.0 10^3/uL (0.0-0.2) 10/29/19 15:56 Total Counted 100 10/26/19 17:19 Seg Neutrophils % 55.2 % (42-78) 10/29/19 15:56 Seg Neuts % (Manual) 93 % (42-78) H 10/26/19 17:19 Lymphocytes % (Manual) 3 % (13-45) L 10/26/19 17:19 Monocytes % (Manual) 3 % (3-13) 10/26/19 17:19 Eosinophils % (Manual) 1 % (0-6) 10/26/19 17:19 Basophils % (Manual) 0 % (0-2) 10/26/19 17:19 Abs Neuts (Manual) 6.2 10^3/uL (1.7-8.2) 10/26/19 17:19 Abs Lymphs (Manual) 0.2 10^3/uL (0.5-4.7) L 10/26/19 17:19 Abs Monocytes (Manual) 0.2 10^3/uL (0.1-1.4) 10/26/19 17:19 Absolute Eos (Manual) 0.1 10^3/uL (0.0-0.6) 10/26/19 17:19 Abs Basophils (Manual) 0.0 10^3/uL (0.0-0.2) 10/26/19 17:19 Platelet Estimate Cancelled 10/26/19 16:09 Clumped Platelets PRESENT 10/26/19 17:19 Platelet Comment ADEQUATE 10/26/19 17:19 Poikilocytosis 2+ 10/26/19 17:19 Anisocytosis 1+ 10/26/19 17:19 Macrocytosis 3+ 10/26/19 17:19 Spherocytes 2+ 10/26/19 17:19 Ovalocytes 1+ 10/26/19 17:19 PT 14.1 SEC (11.4-15.4) 10/27/19 04:04 INR 1.07 10/27/19 04:04 VBG pH 7.32 (7.30-7.42) 10/27/19 06:19 VBG pCO2 28.7 mmHg (35-63) L 10/27/19 06:19 VBG HCO3 14.4 mmol/L (20-32) L 10/27/19 06:19 VBG Base Excess -10.6 mmol/L 10/27/19 06:19 Sodium 131.0 mmol/L (137-145) L 11/02/19 05:01 Potassium 4.2 mmol/L (3.6-5.0) 11/02/19 05:01 Chloride 101 mmol/L (98-107) 11/02/19 05:01 Carbon Dioxide 25 mmol/L (22-30) 11/02/19 05:01 Anion Gap 5 (5-19) 11/02/19 05:01 BUN 13 mg/dL (7-20) 11/02/19 05:01 Creatinine 0.83 mg/dL (0.52-1.25) 11/02/19 05:01 Est GFR ( Amer) > 60 (>60) 11/02/19 05:01 Est GFR (Non-Af Amer) Cancelled 10/27/19 10:40 Est GFR (MDRD) Non-Af > 60 (>60) 11/02/19 05:01 Glucose 271 mg/dL (75-110) H 11/02/19 05:01 POC Glucose 260 mg/dL (70-110) H 11/06/19 11:48 Hemoglobin A1c % 10.4 % (4.7-6.0) H 10/29/19 05:19 Calcium 7.8 mg/dL (8.4-10.2) L 11/02/19 05:01 Phosphorus 3.8 mg/dL (2.5-4.5) 10/27/19 04:04 Magnesium 1.5 mg/dL (1.6-2.3) L 11/02/19 05:01 Total Bilirubin 0.3 mg/dL (0.2-1.3) 11/02/19 05:01 Direct Bilirubin 0.3 mg/dL (0.0-0.4) 11/02/19 05:01 Neonat Total Bilirubin Not Reportable 11/02/19 05:01 Neonat Direct Bilirubin Not Reportable 11/02/19 05:01 Neonat Indirect Bili Not Reportable 11/02/19 05:01 AST 73 U/L (17-59) H 11/02/19 05:01 ALT 115 U/L (<50) H 11/02/19 05:01 Alkaline Phosphatase 189 U/L (38-126) H 11/02/19 05:01 Ammonia 19.1 umol/L (9-33) 11/01/19 11:10 Creatine Kinase 183 U/L (55-170) H 10/27/19 06:19 Troponin I 0.919 ng/mL 10/27/19 04:04 Total Protein 4.9 g/dL (6.3-8.2) L 11/02/19 05:01 Albumin 2.4 g/dL (3.5-5.0) L 11/02/19 05:01 EGFR Cancelled 10/27/19 10:40 Beta-Hydroxybutyrate 114 mg/dL (.) H 10/26/19 17:19 TSH 1.06 uIU/mL (0.47-4.68) 10/27/19 04:04 Free T4 1.21 ng/dL (0.78-2.19) 10/27/19 04:04 Urine Color YELLOW 10/26/19 21:50 Urine Appearance CLEAR 10/26/19 21:50 Urine pH 5.0 (5.0-9.0) 10/26/19 21:50 Ur Specific [place] 1.017 10/26/19 21:50 Urine Protein 30 mg/dL (NEGATIVE) H 10/26/19 21:50 Urine Glucose (UA) >=500 mg/dL (NEGATIVE) H 10/26/19 21:50 Urine Ketones 20 mg/dL (NEGATIVE) H 10/26/19 21:50 Urine Blood SMALL (NEGATIVE) H 10/26/19 21:50 Urine Nitrite NEGATIVE (NEGATIVE) 10/26/19 21:50 Urine Bilirubin NEGATIVE (NEGATIVE) 10/26/19 21:50 Urine Urobilinogen NEGATIVE mg/dL (<2.0) 10/26/19 21:50 Ur Leukocyte Esterase NEGATIVE (NEGATIVE) 10/26/19 21:50 Urine WBC (Auto) 2 /HPF 10/26/19 21:50 Urine RBC (Auto) 0 /HPF 10/26/19 21:50 Urine Bacteria (Auto) TRACE /HPF 10/26/19 21:50 Squamous Epi Cells Auto <1 /HPF 10/26/19 21:50 Urine Mucus (Auto) RARE /LPF 10/26/19 21:50 Urine Ascorbic Acid NEGATIVE (NEGATIVE) 10/26/19 21:50 Urine Opiates Screen NEGATIVE 10/26/19 21:50 Urine Methadone Screen NEGATIVE 10/26/19 21:50 Ur Barbiturates Screen NEGATIVE 10/26/19 21:50 Ur Phencyclidine Scrn NEGATIVE 10/26/19 21:50 Ur Amphetamines Screen NEGATIVE 10/26/19 21:50 U Benzodiazepines Scrn NEGATIVE 10/26/19 21:50 Urine Cocaine Screen NEGATIVE 10/26/19 21:50 U Marijuana (THC) Screen NEGATIVE 10/26/19 21:50 Slides for Path Review PATHOLOGIST REVIEWED 10/26/19 17:19 10/26/19 10/26/19 10/26/19 16:09 17:19 22:24 Troponin I Cancelled < 0.012 0.019 10/27/19 10/27/19 02:53 04:04 Troponin I 0.382 0.919 Impressions: Chest X-Ray 10/26/19 18:35 IMPRESSION: NO ACUTE RADIOGRAPHIC FINDING IN THE CHEST. Head CT 11/01/19 00:00 IMPRESSION: 1. Findings suggestive of subacute infarct in the left frontal lobe. Consider MRI for confirmation. 2. Old left occipital lobe infarct. KUB X-Ray 11/01/19 09:56 IMPRESSION: Stable KUB with probable right renal stone. Gas pattern is nonspecific. Brain MRI with MRA 11/02/19 00:00 IMPRESSION: Unremarkable MRA of the [place]. Anatomic variant, as described Carotid Doppler Study 11/02/19 00:00 IMPRESSION: NO HEMODYNAMICALLY SIGNIFICANT STENOSIS. Head MRI 11/02/19 00:00 IMPRESSION: 1. There is restricted diffusion at the left posterior left frontal lobe consistent with a subacute infarct. 2. Mild cerebral atrophy and periventricular white matter changes are seen. Plan Time Spent: Greater than 30 Minutes Stroke Is this a Stroke Patient?: Yes Stroke Pt being discharged on Anti-thrombolytic therapy?: Yes Stroke Pt being discharged on Anti-coagulation therapy?: No Reason(s) for not prescribing Anti-coagulation therapy:: Not indicated Stroke Pt being discharged on Statins?: No Reason(s) for not prescribing Statins therapy:: Not indicated Acute Heart Failure Is this a Heart Failure Patient?: No
[2019-11-06 17:03] VITALS: BP 142/78
== END 2019-11-06 18:24 | DRG 637 ==
LOC: ER 14:54 → EH 19:42 → ICU 21:15 → 3W 10-27 17:27
PROVIDERS: ADMIT Anesthesiology; ATTEND Internal Medicine
DX: E10.10 Type 1 diabetes mellitus with ketoacidosis without coma (principal); G93.41 Metabolic encephalopathy; N17.9 Acute kidney failure, unspecified; E87.6 Hypokalemia; I11.0 Hypertensive heart disease with heart failure; I50.9 Heart failure, unspecified; F17.210 Nicotine dependence, cigarettes, uncomplicated; F32.9 Major depressive disorder, single episode, unspecified; E87.5 Hyperkalemia; I25.10 Atherosclerotic heart disease of native coronary artery without angina pectoris; E10.649 Type 1 diabetes mellitus with hypoglycemia without coma; J44.9 Chronic obstructive pulmonary disease, unspecified; E86.0 Dehydration; Z83.3 Family history of diabetes mellitus; Z82.49 Family history of ischemic heart disease and other diseases of the circulatory system; F10.20 Alcohol dependence, uncomplicated; I69.398 Other sequelae of cerebral infarction; I69.320 Aphasia following cerebral infarction; Z79.4 Long term (current) use of insulin; H53.9 Unspecified visual disturbance; I16.0 Hypertensive urgency; Z79.899 Other long term (current) drug therapy; Z91.14 Patient's other noncompliance with medication regimen
CPT/HCPCS: 36415; 70470; 70544; 70551; 71045; 74018; 80048; 80053; 80307; 81001; 82010; 82040; 82140; 82550; 82803; 82962; 83036; 83735; 84100; 84439; 84443; 84484; 85025; 85610; 87070; 93005; 93010; 93880; 96361; 96374; 96375; 99285; 99291; J0360; J1650; J1815; J2405; J2765; J3480; J3490; J7030; J7042; J7050; J7060; J7120

== ENCOUNTER 2019-12-17 20:12 | Inpatient (IN) | payer MEDICAID ==
[2019-12-17] MEDS ORDERED: ONDANSETRON HCL INJ/PF 4 MG/2 ML SDV IV ONE (20:43)
--- NOTE | 2019-12-17 20:46 | ER Document Report ---
ED Medical Screen (RME) - General Stated Complaint: GENERAL WEAKNESS/DIARREAH/VOMITING Time Seen by Provider: 12/17/19 20:41 Primary Care Provider: ERNST POTTER MD [Primary Care Provider] - Follow up as needed Mode of Arrival: Ambulatory Information source: Parent Notes: 54-year-old male brought in by his mom with nausea vomiting diarrhea from the rehab center. Not taking his meds as he is throwing up too much. Just got out of the hospital on after a bout of diabetic ketoacidosis. Accu-Chek in the emergency department reads high. General: Ill-appearing Cardiac mildly tachycardic Pulmonary tachypneic Abdomen nontender HEENT moist membranes I have greeted and performed a rapid initial assessment of this patient. A comprehensive ED assessment and evaluation of the patient, analysis of test results and completion of the medical decision making process will be conducted by additional ED providers. TRAVEL OUTSIDE OF THE [place] IN LAST 30 DAYS: No - Related Data Allergies/Adverse Reactions: No Known Allergies Allergy (Verified 06/08/17 20:19) Past Medical History - Past Medical History Cardiac Medical History: Reports: Hx Congestive Heart Failure - Diastolic, Hx Hypertension Denies: Hx Heart Attack Pulmonary Medical History: Reports: Hx COPD Denies: Hx Asthma Neurological Medical History: Denies: Hx Seizures Endocrine Medical History: Reports: Hx Diabetes Mellitus Type 1. Denies: Hx Diabetes Mellitus Type 2, Hx Hyperthyroidism, Hx Hypothyroidism Renal/ Medical History: Reports: Hx Renal Insufficiency GI Medical History: Denies: Hx Cirrhosis, Hx Hepatitis Musculoskeltal Medical History: Denies Hx Arthritis, Denies Hx Gout Skin Medical History: Denies Hx Eczema, Denies Hx Psoriasis Psychiatric Medical History: Denies: Hx Depression Infectious Medical History: Denies: Hx Hepatitis Past Surgical History: Reports: Other - Removal of part of a lung as a child due to abscess. - Immunizations Immunizations up to date: Yes Hx Diphtheria, Pertussis, Tetanus Vaccination: Yes Physical Exam - Vital signs Vitals: Temp Pulse Resp BP Pulse Ox 97.2 F 105 H 20 121/78 100 12/17/19 20:27 12/17/19 20:27 12/17/19 20:27 12/17/19 20:27 12/17/19 20:27 Course - Vital Signs Vital signs: Temp Pulse Resp BP Pulse Ox 97.2 F 105 H 20 121/78 100 12/17/19 20:27 12/17/19 20:27 12/17/19 20:27 12/17/19 20:27 12/17/19 20:27 Doctor's Discharge - Discharge Referrals: ERNST POTTER MD [Primary Care Provider] - Follow up as needed
[2019-12-17] MEDS: NORMAL SALINE 1000 ML 1,000 ML IV PRN ×2 (20:58→21:12)
[2019-12-17] MEDS ORDERED: NORMAL SALINE 1000 ML 1,000 ML IV ONE (21:23)
[2019-12-17 22:18] LABS: ABSOLUTE BASOPHILS # (AUTO) 0.1 10^3/uL (0.0-0.2); ABSOLUTE LYMPHOCYTES (AUTO) 0.5 10^3/uL (0.5-4.7); ABSOLUTE MONOCYTES (AUTO) 1.2 10^3/uL (0.1-1.4); ABSOLUTE NEUT (AUTO) 7.9 10^3/uL (1.7-8.2); BASOPHILS % (AUTO) 0.7 % (0-2); HEMOGLOBIN 8.9 g/dL (13.5-17.0); LYMPHOCYTES % (AUTO) 5.3 % (13-45); MEAN CORPUSCULAR HEMOGLOBIN 30.7 pg (27.0-33.4); MONOCYTES % (AUTO) 11.9 % (3-13); PLATELET COUNT 249 10^3/uL (150-450); RED CELL DISTRIBUTION WIDTH 16.8 % (11.5-14.0); SEGMENTED NEUTROPHILS % (AUTO) 82.1 % (42-78); TOTAL CELLS COUNTED % (AUTO) 100 %; WHITE BLOOD COUNT 9.7 10^3/uL (4.0-10.5)
[2019-12-17 22:21] LABS: MEAN CORPUSCULAR VOLUME 110 fl (80-97)
[2019-12-17 22:22] LABS: VENOUS BLOOD BASE EXCESS -27.6 mmol/L; VENOUS BLOOD HCO3 4.7 mmol/L (20-32); VENOUS BLOOD PCO2 25.2 mmHg (35-63)
[2019-12-17 22:23] LABS: HEMATOCRIT 31.9 % (37.9-51.0); MEAN CORPUSCULAR HGB CONC 27.9 g/dL (32.0-36.0)
[2019-12-17 22:25] LABS: VENOUS BLOOD PH 6.89 (7.30-7.42)
[2019-12-17] MEDS ORDERED: INSULIN REG, HUMAN 100 UNIT/ML 3 ML VIAL (PYX) IV ONE ×2 (22:31)
[2019-12-17 22:34] LABS: ALBUMIN 3.8 g/dL (3.5-5.0); ALKALINE PHOSPHATASE 163 U/L (38-126); ASPARTATE AMINO TRANSFERASE 48 U/L (17-59); BILIRUBIN,DIRECT 0.3 mg/dL (0.0-0.4); BILIRUBIN,TOTAL 0.3 mg/dL (0.2-1.3); BLOOD UREA NITROGEN 68 mg/dL (7-20); TOTAL PROTEIN 6.5 g/dL (6.3-8.2)
[2019-12-17 22:38] LABS: APPEARANCE,URINE SLIGHTLY-CLOUDY; BILIRUBIN,URINE NEGATIVE (NEGATIVE); COLOR,URINE YELLOW; GLUCOSE, URINE >=500 mg/dL (NEGATIVE); KETONES,URINE 20 mg/dL (NEGATIVE); PROTEIN,URINE 30 mg/dL (NEGATIVE); URINE SPECIFIC GRAVITY 1.018; UROBILINOGEN,URINE NEGATIVE mg/dL (<2.0)
[2019-12-17 22:57] LABS: CHLORIDE 86 mmol/L (98-107)
[2019-12-17] MEDS: NORMAL SALINE 1000 ML 1,000 ML IV ONE (22:57)
[2019-12-17 23:04] LABS: GLUCOSE 1347 mg/dL (75-110); POTASSIUM 7.6 mmol/L (3.6-5.0)
[2019-12-17 23:05] LABS: CARBON DIOXIDE < 5 mmol/L (22-30)
[2019-12-17] MEDS ORDERED: CALCIUM GLUCONATE 1000 MG/10 ML INJ IV ONE (23:07)
[2019-12-17] MEDS ORDERED: SODIUM BICARBONATE 8.4% INJ 50 MEQ/50 ML DISP.SYRIN IV ONE (23:07)
--- NOTE | 2019-12-17 23:09 | ER Document Report ---
Entered by CHRISTOPHE BLACKWELL SCRIBE 12/17/[id number] Acting as scribe for:THA TRONCOSO, ED General - General Chief Complaint: Nausea/Vomiting/Diarrhea Stated Complaint: GENERAL WEAKNESS/DIARREAH/VOMITING Time Seen by Provider: 12/17/19 20:41 Primary Care Provider: ERNST POTTER MD [Primary Care Provider] - Follow up as needed Mode of Arrival: Ambulatory Information source: Parent Notes: This 54 year old non-compliant diabetic male patient with known cocaine abuse presents to the emergency department today with complaints of elevated blood glucose levels. Patient was discharged from [facility] a few days ago per mom at bedside. Mom reports that she "thinks he was discharged too soon". Patient reports that he took his insulin yesterday although mom doesn't seem to think so based off her reaction. He has had weakness, diarrhea ,and nausea today. TRAVEL OUTSIDE OF THE [place] IN LAST 30 DAYS: No - Related Data Allergies/Adverse Reactions: No Known Allergies Allergy (Verified 06/08/17 20:19) Past Medical History - General Information source: Parent - Social History Smoking Status: Current Every Day Smoker Cigarette use (# per day): Yes Chew tobacco use (# tins/day): No Frequency of alcohol use: None Drug Abuse: Cocaine Family History: Reviewed & Not Pertinent, DM, Hypertension - Past Medical History Cardiac Medical History: Reports: Hx Congestive Heart Failure - Diastolic, Hx Hypertension Pulmonary Medical History: Reports: Hx COPD Neurological Medical History: Reports: Hx Cerebrovascular Accident Endocrine Medical History: Reports: Hx Diabetes Mellitus Type 1 Renal/ Medical History: Reports: Hx Renal Insufficiency GI Medical History: Musculoskeletal Medical History: Past Surgical History: Reports: Other - Removal of part of a lung as a child due to abscess. - Immunizations Immunizations up to date: Yes Hx Diphtheria, Pertussis, Tetanus Vaccination: Yes Review of Systems - Review of Systems -: Yes ROS unobtainable due to patient's medical condition Physical Exam - Vital signs Vitals: Temp Pulse Resp BP Pulse Ox 97.2 F 105 H 20 121/78 100 12/17/19 20:27 12/17/19 20:27 12/17/19 20:27 12/17/19 20:27 12/17/19 20:27 - Notes Notes: Physical Exam: General: Alert. Appears older than stated age. HEENT: Normocephalic. Atraumatic. PERRL. Extraocular movements intact. Oropharynx clear. Dry mucous membranes. Neck: Supple. Non-tender. Respiratory: Tachypneic. Clear and equal breath sounds bilaterally. Cardiovascular: Tachycardic. Regular rhythm. Abdominal: Normal Inspection. Non-tender. No distension. Normal Bowel Sounds. Back: No gross abnormalities. Extremities: Moves all four extremities. Upper extremities: Normal inspection. Normal ROM. Lower extremities: Normal inspection. No edema. Normal ROM. Neurological: Normal cognition. AAOx4. Normal speech. Psychological: Normal affect. Normal Mood. Skin: Warm. Dry. Normal color. Course - Re-evaluation Re-evalutation: 12/17/19 23:34 MDM 54 year old male with medical noncompliance and htn, dm and home from [facility] where he was convalescing after cva recently has been home about 3 days. Reportedly except for today has been taking his insulin. Lives with mom. She brought him in tonight due to nausea and vomiting and loose stool. No chest pain or sob. No fever and no covid exposure reportedly. I have discussed the pt with the ICU provider and she has graciously agreed to see and evaluate for admission. - Vital Signs Vital signs: Temp Pulse Resp BP Pulse Ox 97.2 F 105 H 23 H 128/72 H 99 12/17/19 20:27 12/17/19 20:27 12/17/19 21:10 12/17/19 21:10 12/17/19 21:10 - Laboratory Result Diagrams: 12/17/19 21:55 12/17/19 21:55 Laboratory results interpreted by me: 12/17/19 12/17/19 12/17/19 21:55 21:55 21:55 RBC 2.90 L Hgb 8.9 L Hct 31.9 L MCV 110 H D MCHC 27.9 L RDW 16.8 H Lymph % (Auto) 5.3 L Seg Neutrophils % 82.1 H VBG pH 6.89 L* VBG pCO2 25.2 L VBG HCO3 4.7 L Sodium 122.4 L Potassium 7.6 H* Chloride 86 L Carbon Dioxide < 5 L* BUN 68 H Creatinine 2.13 H Est GFR ( Amer) 39 L Est GFR (MDRD) Non-Af 33 L Glucose 1347 H* ALT 53 H Alkaline Phosphatase 163 H Urine Protein Urine Glucose (UA) Urine Ketones Urine Blood 12/17/19 22:05 RBC Hgb Hct MCV MCHC RDW Lymph % (Auto) Seg Neutrophils % VBG pH VBG pCO2 VBG HCO3 Sodium Potassium Chloride Carbon Dioxide BUN Creatinine Est GFR ( Amer) Est GFR (MDRD) Non-Af Glucose ALT Alkaline Phosphatase Urine Protein 30 H Urine Glucose (UA) >=500 H Urine Ketones 20 H Urine Blood SMALL H - Diagnostic Test Radiology reviewed: Image reviewed, Reports reviewed - EKG Interpretation by Me EKG shows normal: Sinus rhythm Rate: Tachycardia Rhythm: NSR Voltage: Consistent with LVH - Sinus Tachy 103 BPM Nl axis peaked t waves. No st elevation or depression my interpretation. Critical Care Note - Critical Care Note Total time excluding time spent on procedures (mins): 30 Discharge - Discharge Clinical Impression: Hyperglycemia due to type 1 diabetes mellitus, Hyperkalemia, Dehydration, Acute diarrhea DKA (diabetic ketoacidoses) Qualifiers: Diabetes mellitus type: type 1 Diabetes mellitus complication detail: without c daniel Qualified Code(s): E10.10 - Type 1 diabetes mellitus with ketoacidosis without coma Condition: Critical Disposition: ADMITTED INPATIENT Admitting Provider: Deidre ([employer]) Unit Admitted: ICU Referrals: ERNST POTTER MD [Primary Care Provider] - Follow up as needed I personally performed the services described in the documentation, reviewed and edited the documentation which was dictated to the scribe in my presence, and it accurately records my words and actions.
--- NOTE | 2019-12-17 23:29 | RADIOLOGY REPORT (SQ) ---
CHEST X-RAY 1 VIEW on 12/17/2019 at 10:38 PM CLINICAL INDICATION: Hypertension COMPARISON: 10/26/2019 FINDINGS: There is minimal biapical scarring. There is likely minimal right basilar pleural scarring. The lungs are otherwise clear. Cardiac, hilar and mediastinal contours are within normal limits. Pulmonary vascularity is within normal limits. IMPRESSION: No acute disease.
[2019-12-18 00:08] LABS: URINE AMPHETAMINES SCREEN NEGATIVE; URINE BARBITURATES SCREEN NEGATIVE; URINE BENZODIAZEPINES SCREEN NEGATIVE; URINE COCAINE SCREEN NEGATIVE; URINE MARIJUANA (THC) SCREEN NEGATIVE; URINE METHADONE SCREEN NEGATIVE; URINE PHENCYCLIDINE SCREEN NEGATIVE
[2019-12-18] MEDS ORDERED: ONDANSETRON HCL INJ/PF 4 MG/2 ML SDV IV PRN (00:42)
[2019-12-18] MEDS ORDERED: ACETAMINOPHEN 325 MG TABLET PO PRN (00:42)
[2019-12-18] MEDS ORDERED: NORMAL SALINE 1000 ML 1,000 ML IV PRN (00:42)
[2019-12-18] MEDS: INSULIN, REGULAR 100 UNIT/100 ML NORMAL SALINE IV PRN ×4 (01:30→07:00)
[2019-12-18] MEDS ORDERED: INSULIN REG, HUMAN 100 UNIT/ML 3 ML VIAL (PYX) IV ONE (01:52)
[2019-12-18] MEDS: NORMAL SALINE 1000 ML 1,000 ML IV ONE (01:55)
[2019-12-18 03:24] LABS: ARTERIAL BLOOD BASE EXCESS -18.3 mmol/L; ARTERIAL BLOOD H2CO3 0.67 mmol/L (1.05-1.35); ARTERIAL BLOOD HCO3 8.2 mmol/L (20-24); ARTERIAL BLOOD O2 SATURATION 97.2 % (94-98); ARTERIAL BLOOD PCO2 22.3 mmHg (35-45); ARTERIAL BLOOD PO2 113.6 mmHg (80-100); ARTERIAL BLOOD TOTAL CO2 8.9 mmol/L (23-27)
[2019-12-18 03:25] LABS: ARTERIAL BLOOD FIO2 ROOM AIR
[2019-12-18 03:28] LABS: ARTERIAL BLOOD PH 7.19 (7.35-7.45)
[2019-12-18 03:52] LABS: ALBUMIN 3.9 g/dL (3.5-5.0); ALKALINE PHOSPHATASE 134 U/L (38-126); ASPARTATE AMINO TRANSFERASE 94 U/L (17-59); BILIRUBIN,DIRECT 0.3 mg/dL (0.0-0.4); BILIRUBIN,TOTAL 0.4 mg/dL (0.2-1.3); BLOOD UREA NITROGEN 73 mg/dL (7-20); CHLORIDE 94 mmol/L (98-107); TOTAL PROTEIN 6.5 g/dL (6.3-8.2)
[2019-12-18 04:08] LABS: CARBON DIOXIDE < 5 mmol/L (22-30); GLUCOSE 1112 mg/dL (75-110); POTASSIUM 4.7 mmol/L (3.6-5.0)
--- NOTE | 2019-12-18 04:10 | CRITICAL CARE ADMISSION REPORT ---
HPI Date:: 12/17/19 Time:: 22:00 Reason for ICU Reason:: DKA Admission Date/Time & PCP: Admission Date/Time: 12/17/19 23:46 Primary Care Provider: ERNST POTTER MD HPI: This 54 year old non-compliant diabetic male patient with known cocaine abuse presents to the emergency department today with complaints of elevated blood glucose levels. Patient was discharged from [facility] a few days ago per mom at bedside. Mom reports that she "thinks he was discharged too soon". Patient reports that he took his insulin yesterday although mom doesn't seem to think so based off her reaction. He has had weakness, diarrhea ,and nausea today. History obtained from:: ER MD and old chart - Diagnosis/Plan (2) DKA (diabetic ketoacidoses) Qualifiers: Diabetes mellitus type: type 1 Diabetes mellitus complication detail: without coma Qualified Code(s): E10.10 - Type 1 diabetes mellitus with ketoacidosis without coma Is this a current diagnosis for this admission?: Yes Plan: Continue on IV fluid bolus Insulin IV Monitor BMP anion gap (3) Dehydration Is this a current diagnosis for this admission?: Yes Plan: Given IV fluid boluses Monitor BMP (4) Hyperglycemia due to type 1 diabetes mellitus Is this a current diagnosis for this admission?: Yes Plan: Monitor blood sugar Continue Insulin drip (5) Hyperkalemia Is this a current diagnosis for this admission?: Yes (6) ISELA (acute kidney injury) Is this a current diagnosis for this admission?: Yes Plan: Continue Insulin IV Monitor BMP Monitor Urine output (7) AMS (altered mental status) Qualifiers: Altered mental status type: unspecified Qualified Code(s): R41.82 - Altered mental status, unspecified Is this a current diagnosis for this admission?: Yes Plan: Monitor hemodynamics Avoid narcotics (8) Abnormal liver function test Is this a current diagnosis for this admission?: Yes Plan: Monitor LFTS (9) Depression Qualifiers: Is this a current diagnosis for this admission?: Yes Past Medical History Cardiac Medical History: Reports: Congestive Heart Failure - Diastolic, Hypertension Denies: Myocardial Infarction Pulmonary Medical History: Reports: Chronic Obstructive Pulmonary Disease (COPD) Denies: Asthma Neurological Medical History: Denies: Seizures Endocrine Medical History: Reports: Diabetes Mellitus Type 1 Denies: Diabetes Mellitus Type 2, Hyperthyroidism, Hypothyroidism GI Medical History: Denies: Cirrhosis, Hepatitis Musculoskeltal Medical History: Denies: Arthritis, Gout Skin Medical History: Denies: Eczema, Psoriasis Psychiatric Medical History: Denies: Depression Hematology: Denies: Anemia, Bleeding Tendencies Past Surgical History Past Surgical History: Reports: Other - Removal of part of a lung as a child due to abscess. Social/Family History - Social History Smoking Status: Current Every Day Smoker Frequency of Alcohol Use: Heavy Hx Recreational Drug Use: Yes Drugs: Cocaine, Heroin Hx Prescription Drug Abuse: Yes - Medication/Allergies Home Medications: Carvedilol [Coreg 6.25 mg Tablet] 6.25 mg PO Q12 #60 tablet 08/09/19 Lisinopril [Prinivil 5 mg Tablet] 10 mg PO DAILY 30 Days #30 tablet 09/19/19 Pantoprazole Sodium [Protonix [address] Tablet] 40 mg PO BID@0600,1700 #60 tablet.dr 10/05/19 Aspirin [Ecotrin 81 mg EC Tablet] 81 mg PO DAILY tabec 11/06/19 Buspirone HCl [Buspar 10 mg Tablet] 5 mg PO Q12 tablet 11/06/19 Chlorthalidone [Hygroton 25 mg Tablet] 25 mg PO QAM tablet 11/06/19 Clopidogrel Bisulfate [Plavix 75 mg Tablet] 75 mg PO DAILY tablet 11/06/19 Insulin Glargine,Hum.rec.anlog [Lantus Insulin 100 Unit/1 ml 10 ml] 15 unit SUBCUT DAILY unit 11/06/19 Insulin Lispro [Humalog Insulin (Lispro) 100 unit/mL] 6 unit SUBCUT BIDACLS unit 11/06/19 Insulin Lispro [Humalog Insulin (Lispro) 100 unit/mL] 8 unit SUBCUT ACBRKFST unit 11/06/19 Nifedipine [Procardia XL 30 mg Tablet] 30 mg PO Q12 tab.er.24 11/06/19 Oxcarbazepine [Trileptal 150 mg Tablet] 300 mg PO Q12 tablet 11/06/19 Potassium Chloride [Klor-Con 10 Meq Tablet ER] 20 meq PO DAILY tablet.er 11/06/19 Allergies/Adverse Reactions: No Known Allergies Allergy (Verified 06/08/17 20:19) Physical Exam Vital Signs: Temp Pulse Resp BP Pulse Ox 97.2 F 105 H 23 H 128/72 H 99 12/17/19 20:27 12/17/19 20:27 12/17/19 21:10 12/17/19 21:10 12/17/19 21:10 Intake & Output 12/16/19 12/17/19 12/18/19 06:59 06:59 06:59 Intake Total 1233 Output Total 125 Balance 1108 Weight 49 kg Weight/Height Weight 49 kg Height 5 ft 7 in General appearance: PRESENT: mild distress, thin Head exam: PRESENT: normocephalic Eye exam: PRESENT: PERRLA Ear exam: PRESENT: normal external ear exam Mouth exam: PRESENT: moist, tongue midline Teeth exam: PRESENT: edentulous Respiratory exam: PRESENT: accessory muscle use, decreased breath sounds, symmetrical Cardiovascular exam: PRESENT: +S1, +S2 Pulses: PRESENT: normal carotid pulses, normal radial pulses GI/Abdominal exam: PRESENT: hypoactive bowel sounds, soft, tenderness Rectal exam: PRESENT: deferred Gentrourinary exam: PRESENT: indwelling catheter Musculoskeletal exam: PRESENT: full ROM, normal inspection Neurological exam: PRESENT: alert, oriented to person Psychiatric exam: PRESENT: agitated, anxious Skin exam: PRESENT: skin tears Laboratory/Radiographs Laboratory Results: 12/17/19 21:55 12/17/19 12/17/19 12/17/19 21:55 21:55 21:55 WBC 9.7 RBC 2.90 L Hgb 8.9 L Hct 31.9 L MCV 110 H D MCH 30.7 MCHC 27.9 L RDW 16.8 H Plt Count 249 Seg Neutrophils % 82.1 H Carbonic Acid HCO3/H2CO3 Ratio ABG pH ABG pCO2 ABG pO2 ABG HCO3 ABG O2 Saturation ABG Base Excess VBG pH 6.89 L* VBG pCO2 25.2 L VBG HCO3 4.7 L VBG Base Excess -27.6 FiO2 Sodium 122.4 L Potassium 7.6 H* Chloride 86 L Carbon Dioxide < 5 L* Anion Gap Not Reportable BUN 68 H Creatinine 2.13 H Est GFR ( Amer) 39 L Glucose 1347 H* Calcium 9.0 Total Bilirubin 0.3 AST 48 Alkaline Phosphatase 163 H Total Protein 6.5 Albumin 3.8 Lipase 155.6 Urine Color Urine Appearance Urine pH Ur Specific [place] Urine Protein Urine Glucose (UA) Urine Ketones Urine Blood Urine RBC (Auto) 12/17/19 12/18/19 22:05 02:45 WBC RBC Hgb Hct MCV MCH MCHC RDW Plt Count Seg Neutrophils % Carbonic Acid 0.67 L HCO3/H2CO3 Ratio 12:1 ABG pH 7.19 L* ABG pCO2 22.3 L ABG pO2 113.6 H ABG HCO3 8.2 L ABG O2 Saturation 97.2 ABG Base Excess -18.3 VBG pH VBG pCO2 VBG HCO3 VBG Base Excess FiO2 ROOM AIR Sodium Potassium Chloride Carbon Dioxide Anion Gap BUN Creatinine Est GFR ( Amer) Glucose Calcium Total Bilirubin AST Alkaline Phosphatase Total Protein Albumin Lipase Urine Color YELLOW Urine Appearance SLIGHTLY-CLOUDY Urine pH 5.0 Ur Specific [place] 1.018 Urine Protein 30 H Urine Glucose (UA) >=500 H Urine Ketones 20 H Urine Blood SMALL H Urine RBC (Auto) 0 12/17/19 21:55 Troponin I < 0.012 Impressions: Chest X-Ray 12/17/19 22:30 IMPRESSION: No acute disease. All labs, radiographs, diagnostic studies and EKGs were personally reviewed: Yes In addition, reports of radiographic and diagnostic studies were read: Yes Critical Time Critical Time (minutes): 60 -: The care of a critically ill patient is dynamic. This note represents a static moment in the admission process. Orders and treatments may be given simultaneously and urgently, and time is not underwriting account representative of the treatment process. This patient requires Critical Care secondary to life threatening organ or limb dysfunction. Without Critical Care services, the patient is at risk for increased mortality and morbidity.
[2019-12-18] MEDS ORDERED: NORMAL SALINE 1000 ML 1,000 ML IV ONE (04:55)
[2019-12-18 05:00] LABS: INTERNATIONAL RATION (INR) 0.94; PROTHROMBIN TIME 12.8 SEC (11.4-15.4)
[2019-12-18 05:04] LABS: ABSOLUTE LYMPHOCYTES (AUTO) 0.9 10^3/uL (0.5-4.7); ABSOLUTE MONOCYTES (AUTO) 0.5 10^3/uL (0.1-1.4); ABSOLUTE NEUT (AUTO) 7.7 10^3/uL (1.7-8.2); BASOPHILS % (AUTO) 0.3 % (0-2); HEMATOCRIT 26.9 % (37.9-51.0); LYMPHOCYTES % (AUTO) 10.2 % (13-45); MEAN CORPUSCULAR HEMOGLOBIN 30.9 pg (27.0-33.4); MEAN CORPUSCULAR HGB CONC 33.4 g/dL (32.0-36.0); MONOCYTES % (AUTO) 5.4 % (3-13); PLATELET COUNT 245 10^3/uL (150-450); SEGMENTED NEUTROPHILS % (AUTO) 84.1 % (42-78); TOTAL CELLS COUNTED % (AUTO) 100 %; WHITE BLOOD COUNT 9.2 10^3/uL (4.0-10.5)
[2019-12-18 05:06] LABS: MEAN CORPUSCULAR VOLUME 93 fl (80-97)
--- NOTE | 2019-12-18 05:29 | EKG REPORT ---
SEVERITY:- ABNORMAL ECG - SINUS TACHYCARDIA RIGHT BUNDLE BRANCH BLOCK LEFT VENTRICULAR HYPERTROPHY ANTERIOR Q WAVES, POSSIBLY DUE TO LVH TALL PEAKED T WAVES. CONSIDER HYPERKALEMIA : Confirmed by: Ronan Simmons MD 18-Dec-2019 05:28:54
[2019-12-18 05:33] LABS: BLOOD UREA NITROGEN 73 mg/dL (7-20); CALCIUM 9.1 mg/dL (8.4-10.2); PHOSPHORUS 5.2 mg/dL (2.5-4.5)
[2019-12-18 05:39] LABS: CHLORIDE 99 mmol/L (98-107)
[2019-12-18 05:44] LABS: ANION GAP 29 (5-19); POTASSIUM 3.7 mmol/L (3.6-5.0)
[2019-12-18 05:45] LABS: CARBON DIOXIDE 9 mmol/L (22-30); GLUCOSE 789 mg/dL (75-110)
[2019-12-18] MEDS ORDERED: POTASSI CL 20 MEQ/1/2NS 1L 20 MEQ/1,000 ML RTUINJ IV PRN (06:31)
[2019-12-18] MEDS ORDERED: INSULIN REG, HUMAN 100 UNIT/ML 3 ML VIAL (PYX) ONE (07:07)
[2019-12-18] MEDS ORDERED: POTASSI CL 20 MEQ/NS 1L 1,000 ML IV ONE (07:10)
[2019-12-18] MEDS ORDERED: DEXTROSE 50%-WATER SYRINGE 12.5 GM/25 ML DOSE IV PRN (07:30)
[2019-12-18] MEDS ORDERED: DEXTROSE 40% GEL 15 GM TUBE PO PRN ×3 (07:30→15:36)
[2019-12-18] MEDS ORDERED: DEXTROSE 40% GEL 15 GM TUBE X 2 PO PRN (07:30)
[2019-12-18] MEDS ORDERED: GLUCAGON,HUMAN RECOMB 1 MG INJ IM PRN ×2 (07:30→15:36)
[2019-12-18] MEDS ORDERED: DEXTROSE 50%-WATER SYRINGE 25 GM/50 ML DOSE IV PRN (07:30)
[2019-12-18] MEDS: HEPARIN SOD (PORCINE) 5,000 UNIT/ML 1 ML VIAL SUBCUT SCH ×3 (07:57→21:58)
--- NOTE | 2019-12-18 09:19 | Progress Note ---
Provider Note Provider Note: Patient is well known for admissions for DKA. Non-compliant. Mental status somewhat altered. BG down to 254. His acidosis is improved. When bicarb is about 15 will consider downgrading him.
[2019-12-18] MEDS ORDERED: POTASSI CL 20 MEQ/D5-1/2NS 1L 1,000 ML IV ONE (10:26)
[2019-12-18] MEDS: PANTOPRAZOLE SODIUM 40 MG VIAL IV SCH ×2 (10:58→21:10)
[2019-12-18] MEDS: POTASSI CL 20 MEQ/D5-1/2NS 1L 1000 ML IV PRN ×3 (10:58→21:20)
--- NOTE | 2019-12-18 12:39 | CDI QUERY ---
CDI Query CDI Review: Dear Provider, Please further specify and document in progress notes and D/C summary- "altered mental status", if possible: ACUTE METABOLIC ENCEPHALOPATHY? ACUTE TOXIC ENCEPHALOPATHY? ACUTE CONFUSIONAL STATE? OTHER? UNABLE TO DETERMINE Thanks, Karla Palomares, CDI [phone]
[2019-12-18 13:08] LABS: ANION GAP 11 (5-19); BLOOD UREA NITROGEN 56 mg/dL (7-20); CALCIUM 8.9 mg/dL (8.4-10.2); CHLORIDE 109 mmol/L (98-107); GLUCOSE 99 mg/dL (75-110); POTASSIUM 3.5 mmol/L (3.6-5.0)
[2019-12-18 13:25] LABS: CARBON DIOXIDE 21 mmol/L (22-30)
[2019-12-18] MEDS ORDERED: DEXTROSE 50%-WATER 25 GM/50 ML DISP.SYRIN IV PRN ×2 (15:36)
[2019-12-18] MEDS ORDERED: INSULIN GLARGINE,HUM.REC.ANLOG 1,000 UNIT/10 ML VIAL (PYX) SUBCUT ONE (16:00)
[2019-12-18] MEDS: INSULIN REG, HUMAN 100 UNIT/ML 3 ML VIAL (PYX) SUBCUT SCH (16:16)
[2019-12-18 19:42] LABS: ANION GAP 10 (5-19); BLOOD UREA NITROGEN 46 mg/dL (7-20); CALCIUM 8.7 mg/dL (8.4-10.2); CARBON DIOXIDE 19 mmol/L (22-30); CHLORIDE 106 mmol/L (98-107); GLUCOSE 257 mg/dL (75-110); POTASSIUM 4.1 mmol/L (3.6-5.0)
[2019-12-18] MEDS ORDERED: LISINOPRIL 10 MG TABLET PO ONE (23:45)
[2019-12-19] MEDS: INSULIN REG, HUMAN 100 UNIT/ML 3 ML VIAL (PYX) SUBCUT SCH ×4 (00:07→17:25)
[2019-12-19 01:37] LABS: ANION GAP 10 (5-19); BLOOD UREA NITROGEN 37 mg/dL (7-20); CALCIUM 8.9 mg/dL (8.4-10.2); CARBON DIOXIDE 19 mmol/L (22-30); CHLORIDE 107 mmol/L (98-107); GLUCOSE 352 mg/dL (75-110); POTASSIUM 3.9 mmol/L (3.6-5.0)
[2019-12-19] MEDS: HEPARIN SOD (PORCINE) 5,000 UNIT/ML 1 ML VIAL SUBCUT SCH ×3 (06:40→22:38)
[2019-12-19] MEDS: INSULIN GLARGINE,HUM.REC.ANLOG 1,000 UNIT/10 ML VIAL SUBCUT SCH ×2 (06:44→17:25)
[2019-12-19 07:07] LABS: ABSOLUTE BASOPHILS # (AUTO) 0.1 10^3/uL (0.0-0.2); ABSOLUTE MONOCYTES (AUTO) 0.6 10^3/uL (0.1-1.4); ABSOLUTE NEUT (AUTO) 5.6 10^3/uL (1.7-8.2); BASOPHILS % (AUTO) 0.7 % (0-2); EOSINOPHILS % (AUTO) 0.3 % (0-6); HEMATOCRIT 25.2 % (37.9-51.0); HEMOGLOBIN 8.9 g/dL (13.5-17.0); MEAN CORPUSCULAR HEMOGLOBIN 30.7 pg (27.0-33.4); MEAN CORPUSCULAR HGB CONC 35.2 g/dL (32.0-36.0); PLATELET COUNT 215 10^3/uL (150-450); RED BLOOD COUNT 2.89 10^6/uL (4.35-5.55); RED CELL DISTRIBUTION WIDTH 16.5 % (11.5-14.0); TOTAL CELLS COUNTED % (AUTO) 100 %; WHITE BLOOD COUNT 7.3 10^3/uL (4.0-10.5)
[2019-12-19 07:17] LABS: MEAN CORPUSCULAR VOLUME 87 fl (80-97)
[2019-12-19 07:27] LABS: ALBUMIN 3.1 g/dL (3.5-5.0); ALKALINE PHOSPHATASE 128 U/L (38-126); ANION GAP 6 (5-19); ASPARTATE AMINO TRANSFERASE 56 U/L (17-59); BILIRUBIN,DIRECT 0.1 mg/dL (0.0-0.4); BILIRUBIN,TOTAL 0.3 mg/dL (0.2-1.3); BLOOD UREA NITROGEN 28 mg/dL (7-20); CARBON DIOXIDE 21 mmol/L (22-30); CHLORIDE 109 mmol/L (98-107); GLUCOSE 261 mg/dL (75-110); POTASSIUM 4.1 mmol/L (3.6-5.0)
[2019-12-19] MEDS ORDERED: INFLUENZA QUAD (6MOS+) 2020-21 VAC 0.5 ML SYR IM ONE (08:00)
[2019-12-19] MEDS: LISINOPRIL 10 MG TABLET PO SCH (09:22)
[2019-12-19] MEDS: DOCUSATE SODIUM 100 MG CAPSULE PO SCH (09:22)
[2019-12-19] MEDS: POTASSI CL 20 MEQ/D5-1/2NS 1L 1000 ML IV PRN (09:22)
[2019-12-19] MEDS: PANTOPRAZOLE SODIUM 40 MG VIAL IV SCH ×2 (09:22→22:44)
[2019-12-19 13:04] LABS: ANION GAP 5 (5-19); BLOOD UREA NITROGEN 22 mg/dL (7-20); CALCIUM 9.2 mg/dL (8.4-10.2); CARBON DIOXIDE 23 mmol/L (22-30); CHLORIDE 109 mmol/L (98-107); GLUCOSE 135 mg/dL (75-110); POTASSIUM 4.1 mmol/L (3.6-5.0)
--- NOTE | 2019-12-19 14:43 | PDOC PROGRESS REPORT ---
Subjective Date:: 12/19/19 Subjective:: No adverse events overnight. He is a little cantankerous this morning and does not really want to interact very much. I noticed that his blood sugars were running pretty high and that he was still on a dextrose containing fluid. The fluid was discontinued and his blood sugars have improved substantially. Reason For Visit: DKA Physical Exam Vital Signs: Temp Pulse Resp BP Pulse Ox 98.2 F 80 16 174/91 H 98 12/19/19 11:54 12/19/19 14:00 12/19/19 11:54 12/19/19 11:54 12/19/19 11:54 Intake & Output 12/18/19 12/19/19 12/20/19 06:59 06:59 06:59 Intake Total 2333 3216 1717 Output Total 300 1850 300 Balance 2033 1366 1417 Weight 53.1 kg 54.3 kg General appearance: PRESENT: no acute distress, disheveled, thin Respiratory exam: PRESENT: clear to auscultation baldemar, symmetrical, unlabored. ABSENT: accessory muscle use, chest wall tenderness, crackles, prolonged expiratory phas, rhonchi, tachypnea, wheezes Cardiovascular exam: PRESENT: RRR, +S1, +S2 Pulses: PRESENT: normal carotid pulses Vascular exam: PRESENT: normal capillary refill GI/Abdominal exam: PRESENT: normal bowel sounds, soft. ABSENT: distended, guarding, rebound, tenderness Extremities exam: ABSENT: clubbing, pedal edema Musculoskeletal exam: PRESENT: normal inspection. ABSENT: deformity Neurological exam: PRESENT: awake, oriented to person, oriented to place, oriented to situation Psychiatric exam: PRESENT: flat affect Skin exam: PRESENT: dry, warm Results Laboratory Results: 12/19/19 06:40 12/19/19 12:32 12/18/19 12/19/19 12/19/19 19:03 01:00 06:40 WBC 7.3 RBC 2.89 L Hgb 8.9 L Hct 25.2 L MCV 87 D MCH 30.7 MCHC 35.2 RDW 16.5 H Plt Count 215 Seg Neutrophils % 77.0 Sodium 135.0 L 136.3 L Potassium 4.1 3.9 Chloride 106 107 Carbon Dioxide 19 L 19 L Anion Gap 10 10 BUN 46 H 37 H Creatinine 1.24 1.15 Est GFR ( Amer) > 60 > 60 Glucose 257 H 352 H Calcium 8.7 8.9 Magnesium Total Bilirubin AST Alkaline Phosphatase Total Protein Albumin 12/19/19 12/19/19 06:40 12:32 WBC RBC Hgb Hct MCV MCH MCHC RDW Plt Count Seg Neutrophils % Sodium 135.7 L 136.9 L Potassium 4.1 4.1 Chloride 109 H 109 H Carbon Dioxide 21 L 23 Anion Gap 6 5 BUN 28 H 22 H Creatinine 0.96 0.86 Est GFR ( Amer) > 60 > 60 Glucose 261 H 135 H Calcium 9.0 9.2 Magnesium 1.9 Total Bilirubin 0.3 AST 56 Alkaline Phosphatase 128 H Total Protein 6.0 L Albumin 3.1 L 12/17/19 21:55 Troponin I < 0.012 Impressions: Chest X-Ray 12/17/19 22:30 IMPRESSION: No acute disease. Assessment and Plan - Diagnosis (1) DKA (diabetic ketoacidoses) Qualifiers: Diabetes mellitus type: type 1 Diabetes mellitus complication detail: without coma Qualified Code(s): E10.10 - Type 1 diabetes mellitus with ketoacidosis without coma Is this a current diagnosis for this admission?: Yes (2) Dehydration Is this a current diagnosis for this admission?: Yes (3) Hyperglycemia due to type 1 diabetes mellitus Is this a current diagnosis for this admission?: Yes (4) Hyperkalemia Is this a current diagnosis for this admission?: Yes (5) ISELA (acute kidney injury) Is this a current diagnosis for this admission?: Yes (6) Acute metabolic encephalopathy Is this a current diagnosis for this admission?: Yes - Plan Summary Summary: His DKA and his renal failure have resolved. He is no longer dehydrated. His blood sugars were high this morning but have seemingly corrected since we stopped his dextrose fluid. We will monitor him overnight to make sure he is on appropriate level of insulin and he will likely be discharged home tomorrow. - Time Time Spent with patient: 15-24 minutes Anticipated Discharge Disposition: Home, Self Care Anticipated Discharge Timeframe: within 24 hours
[2019-12-19] MEDS ORDERED: HYDRALAZINE HCL 25 MG TABLET PO PRN (18:34)
[2019-12-19 18:59] LABS: ANION GAP 9 (5-19); BLOOD UREA NITROGEN 19 mg/dL (7-20); CALCIUM 9.3 mg/dL (8.4-10.2); CARBON DIOXIDE 23 mmol/L (22-30); CHLORIDE 106 mmol/L (98-107); GLUCOSE 120 mg/dL (75-110); POTASSIUM 3.8 mmol/L (3.6-5.0)
[2019-12-19] MEDS ORDERED: AMLODIPINE BESYLATE 10 MG TABLET PO SCH (22:00)
[2019-12-20] MEDS: HEPARIN SOD (PORCINE) 5,000 UNIT/ML 1 ML VIAL SUBCUT SCH (05:49)
[2019-12-20] MEDS: INSULIN GLARGINE,HUM.REC.ANLOG 1,000 UNIT/10 ML VIAL SUBCUT SCH (06:29)
[2019-12-20] MEDS: INSULIN REG, HUMAN 100 UNIT/ML 3 ML VIAL (PYX) SUBCUT SCH ×2 (06:30)
[2019-12-20 07:19] LABS: ABSOLUTE LYMPHOCYTES (AUTO) 1.1 10^3/uL (0.5-4.7); ABSOLUTE MONOCYTES (AUTO) 0.5 10^3/uL (0.1-1.4); ABSOLUTE NEUT (AUTO) 2.7 10^3/uL (1.7-8.2); HEMATOCRIT 27.4 % (37.9-51.0); HEMOGLOBIN 9.6 g/dL (13.5-17.0); LYMPHOCYTES % (AUTO) 25.1 % (13-45); MEAN CORPUSCULAR HEMOGLOBIN 30.5 pg (27.0-33.4); MEAN CORPUSCULAR HGB CONC 34.9 g/dL (32.0-36.0); MEAN CORPUSCULAR VOLUME 87 fl (80-97); MONOCYTES % (AUTO) 10.6 % (3-13); PLATELET COUNT 220 10^3/uL (150-450); RED BLOOD COUNT 3.14 10^6/uL (4.35-5.55); RED CELL DISTRIBUTION WIDTH 16.7 % (11.5-14.0); SEGMENTED NEUTROPHILS % (AUTO) 62.3 % (42-78); TOTAL CELLS COUNTED % (AUTO) 100 %; WHITE BLOOD COUNT 4.4 10^3/uL (4.0-10.5)
[2019-12-20 07:38] LABS: ALBUMIN 3.4 g/dL (3.5-5.0); ALKALINE PHOSPHATASE 135 U/L (38-126); ANION GAP 7 (5-19); ASPARTATE AMINO TRANSFERASE 101 U/L (17-59); BILIRUBIN,DIRECT 0.2 mg/dL (0.0-0.4); BILIRUBIN,TOTAL 0.5 mg/dL (0.2-1.3); BLOOD UREA NITROGEN 15 mg/dL (7-20); CALCIUM 9.5 mg/dL (8.4-10.2); CARBON DIOXIDE 28 mmol/L (22-30); CHLORIDE 104 mmol/L (98-107); GLUCOSE 95 mg/dL (75-110); POTASSIUM 3.6 mmol/L (3.6-5.0); TOTAL PROTEIN 6.4 g/dL (6.3-8.2)
[2019-12-20] MEDS: PANTOPRAZOLE SODIUM 40 MG VIAL IV SCH (09:10)
[2019-12-20] MEDS: LISINOPRIL 10 MG TABLET PO SCH (09:10)
[2019-12-20] MEDS: DOCUSATE SODIUM 100 MG CAPSULE PO SCH (09:11)
[2019-12-20 10:56] VITALS: BP 130/72
--- NOTE | 2019-12-20 15:51 | PDOC DISCHARGE SUMMARY ---
Impression - Admit/DC Date/PCP Admission Date/Primary Care Provider: 12/17/19 23:46 ERNST POTTER MD Discharge Date: 12/20/19 - Discharge Diagnosis (1) DKA (diabetic ketoacidoses) Is this a current diagnosis for this admission?: Yes (2) Dehydration Is this a current diagnosis for this admission?: Yes (3) Hyperglycemia due to type 1 diabetes mellitus Is this a current diagnosis for this admission?: Yes (4) Hyperkalemia Is this a current diagnosis for this admission?: Yes (5) ISELA (acute kidney injury) Is this a current diagnosis for this admission?: Yes (6) Acute metabolic encephalopathy Is this a current diagnosis for this admission?: Yes - Assessment Summary: His DKA and his renal failure have resolved. He is no longer dehydrated. His blood sugars were high this morning but have seemingly corrected since we stopped his dextrose fluid. We will monitor him overnight to make sure he is on appropriate level of insulin and he will likely be discharged home tomorrow. - Additional Information Discharge Diet: Diabetic Discharge Activity: Activity As Tolerated Referrals: JIN RAMÍREZ PA-C [[employer]] - 12/27/19 10:00 am (1 week) Prescriptions: Insulin Lispro [Humalog Insulin (Lispro) 100 unit/mL] 15 unit SUBCUT AC #1 bottle Insulin Glargine,Hum.rec.anlog [Lantus Insulin 100 Unit/mL Insulin Pen] 20 unit SUBCUT Q12 #1 unit Lisinopril 20 mg PO DAILY #30 tablet Amlodipine Besylate [Norvasc 10 mg Tablet] 10 mg PO QHS #30 tablet Home Medications: Amlodipine Besylate [Norvasc 10 mg Tablet] 10 mg PO QHS #30 tablet 12/20/19 Insulin Glargine,Hum.rec.anlog [Lantus Insulin 100 Unit/mL Insulin Pen] 20 unit SUBCUT Q12 #1 unit 12/20/19 Insulin Lispro [Humalog Insulin (Lispro) 100 unit/mL] 15 unit SUBCUT AC #1 bottle 12/20/19 Lisinopril 20 mg PO DAILY #30 tablet 12/20/19 History of Present Illiness History of Present Illness: AMPARO PHAN is a 54 year old male non-compliant diabetic male patient with known cocaine abuse presents to the emergency department today with complaints of elevated blood glucose levels. Patient was discharged from [facility] a few days ago per mom at bedside. Mom reports that she "thinks he was discharged too soon". Patient reports that he took his insulin yesterday although mom doesn't seem to think so based off her reaction. He has had weakness, diarrhea ,and nausea today. Hospital Course Hospital Course: He was put on insulin drip and given fluid and electrolyte management initially in the ICU. His DKA resolved and he was transferred out of the ICU. He was still having some issues with blood sugar control but these have resolved. We were able to get his blood sugar under control with an amount of insulin that was comparable to what he has been prescribed at home. He also had some high blood pressures that required to do medications to get it under control. He has been given prescriptions for lisinopril and amlodipine. He has follow-up scheduled with his primary care provider Jin Ramírez. His labs and examination were reassuring and he was discharged in stable condition. Physical Exam Vital Signs: Temp Pulse Resp BP Pulse Ox 98.2 F 84 16 130/72 H 99 12/20/19 10:53 12/20/19 10:53 12/20/19 10:53 12/20/19 10:53 12/20/19 10:53 Intake & Output 12/19/19 12/20/19 12/21/19 06:59 06:59 06:59 Intake Total 3216 1937 Output Total 1850 300 Balance 1366 1637 Weight 54.3 kg 51.7 kg General appearance: PRESENT: no acute distress, disheveled, thin Respiratory exam: PRESENT: clear to auscultation baldemar, symmetrical, unlabored. ABSENT: accessory muscle use, chest wall tenderness, crackles, prolonged expiratory phas, rhonchi, tachypnea, wheezes Cardiovascular exam: PRESENT: RRR, +S1, +S2 Pulses: PRESENT: normal carotid pulses Vascular exam: PRESENT: normal capillary refill GI/Abdominal exam: PRESENT: normal bowel sounds, soft. ABSENT: distended, guarding, rebound, tenderness Extremities exam: ABSENT: clubbing, pedal edema Musculoskeletal exam: PRESENT: normal inspection. ABSENT: deformity Neurological exam: PRESENT: awake, oriented to person, oriented to place, oriented to situation Psychiatric exam: PRESENT: flat affect Skin exam: PRESENT: dry, warm Results Laboratory Results: WBC 4.4 10^3/uL (4.0-10.5) 12/20/19 06:04 RBC 3.14 10^6/uL (4.35-5.55) L 12/20/19 06:04 Hgb 9.6 g/dL (13.5-17.0) L 12/20/19 06:04 Hct 27.4 % (37.9-51.0) L 12/20/19 06:04 MCV 87 fl (80-97) 12/20/19 06:04 MCH 30.5 pg (27.0-33.4) 12/20/19 06:04 MCHC 34.9 g/dL (32.0-36.0) 12/20/19 06:04 RDW 16.7 % (11.5-14.0) H 12/20/19 06:04 Plt Count 220 10^3/uL (150-450) 12/20/19 06:04 Lymph % (Auto) 25.1 % (13-45) 12/20/19 06:04 Jennings % (Auto) 10.6 % (3-13) 12/20/19 06:04 Eos % (Auto) 1.0 % (0-6) 12/20/19 06:04 Baso % (Auto) 1.0 % (0-2) 12/20/19 06:04 Absolute Neuts (auto) 2.7 10^3/uL (1.7-8.2) 12/20/19 06:04 Absolute Lymphs (auto) 1.1 10^3/uL (0.5-4.7) 12/20/19 06:04 Absolute Monos (auto) 0.5 10^3/uL (0.1-1.4) 12/20/19 06:04 Absolute Eos (auto) 0.0 10^3/uL (0.0-0.6) 12/20/19 06:04 Absolute Basos (auto) 0.0 10^3/uL (0.0-0.2) 12/20/19 06:04 Seg Neutrophils % 62.3 % (42-78) 12/20/19 06:04 PT 12.8 SEC (11.4-15.4) 12/18/19 04:34 INR 0.94 12/18/19 04:34 Carbonic Acid 0.67 mmol/L (1.05-1.35) L 12/18/19 02:45 HCO3/H2CO3 Ratio 12:1 12/18/19 02:45 ABG pH 7.19 (7.35-7.45) L* 12/18/19 02:45 ABG pCO2 22.3 mmHg (35-45) L 12/18/19 02:45 ABG pO2 113.6 mmHg (80-100) H 12/18/19 02:45 ABG HCO3 8.2 mmol/L (20-24) L 12/18/19 02:45 ABG Total CO2 8.9 mmol/L (23-27) L 12/18/19 02:45 ABG O2 Saturation 97.2 % (94-98) 12/18/19 02:45 ABG Base Excess -18.3 mmol/L 12/18/19 02:45 VBG pH 6.89 (7.30-7.42) L* 12/17/19 21:55 VBG pCO2 25.2 mmHg (35-63) L 12/17/19 21:55 VBG HCO3 4.7 mmol/L (20-32) L 12/17/19 21:55 VBG Base Excess -27.6 mmol/L 12/17/19 21:55 FiO2 ROOM AIR 12/18/19 02:45 Sodium 138.7 mmol/L (137-145) 12/20/19 06:04 Potassium 3.6 mmol/L (3.6-5.0) 12/20/19 06:04 Chloride 104 mmol/L (98-107) 12/20/19 06:04 Carbon Dioxide 28 mmol/L (22-30) 12/20/19 06:04 Anion Gap 7 (5-19) 12/20/19 06:04 BUN 15 mg/dL (7-20) 12/20/19 06:04 Creatinine 0.74 mg/dL (0.52-1.25) 12/20/19 06:04 Est GFR ( Amer) > 60 (>60) 12/20/19 06:04 Est GFR (MDRD) Non-Af > 60 (>60) 12/20/19 06:04 Glucose 95 mg/dL (75-110) 12/20/19 06:04 POC Glucose 199 mg/dL (70-110) H 12/20/19 10:56 Calcium 9.5 mg/dL (8.4-10.2) 12/20/19 06:04 Phosphorus 5.2 mg/dL (2.5-4.5) H 12/18/19 04:34 Magnesium 1.9 mg/dL (1.6-2.3) 12/19/19 06:40 Total Bilirubin 0.5 mg/dL (0.2-1.3) 12/20/19 06:04 Direct Bilirubin 0.2 mg/dL (0.0-0.4) 12/20/19 06:04 Neonat Total Bilirubin Not Reportable 12/20/19 06:04 Neonat Direct Bilirubin Not Reportable 12/20/19 06:04 Neonat Indirect Bili Not Reportable 12/20/19 06:04 AST 101 U/L (17-59) H 12/20/19 06:04 ALT 77 U/L (<50) H 12/20/19 06:04 Alkaline Phosphatase 135 U/L (38-126) H 12/20/19 06:04 Ammonia 19.4 umol/L (9-33) 12/18/19 04:34 Troponin I < 0.012 ng/mL 12/17/19 21:55 Total Protein 6.4 g/dL (6.3-8.2) 12/20/19 06:04 Albumin 3.4 g/dL (3.5-5.0) L 12/20/19 06:04 Amylase 587 U/L (30-110) H 12/18/19 04:34 Lipase 155.6 U/L (23-300) 12/17/19 21:55 Urine Color YELLOW 12/17/19 22:05 Urine Appearance SLIGHTLY-CLOUDY 12/17/19 22:05 Urine pH 5.0 (5.0-9.0) 12/17/19 22:05 Ur Specific Cameron 1.018 12/17/19 22:05 Urine Protein 30 mg/dL (NEGATIVE) H 12/17/19 22:05 Urine Glucose (UA) >=500 mg/dL (NEGATIVE) H 12/17/19 22:05 Urine Ketones 20 mg/dL (NEGATIVE) H 12/17/19 22:05 Urine Blood SMALL (NEGATIVE) H 12/17/19 22:05 Urine Nitrite (Reflex) NEGATIVE (NEGATIVE) 12/17/19 22:05 Urine Bilirubin NEGATIVE (NEGATIVE) 12/17/19 22:05 Urine Urobilinogen NEGATIVE mg/dL (<2.0) 12/17/19 22:05 Leukocyte Esterase Rfl NEGATIVE (NEGATIVE) 12/17/19 22:05 Urine RBC (Auto) 0 /HPF 12/17/19 22:05 U Hyaline Cast (Auto) 4 /LPF 12/17/19 22:05 Urine WBC (Reflex) 3 /HPF 12/17/19 22:05 Squamous Epi Cells Auto 1 /HPF 12/17/19 22:05 Urine Mucus (Auto) RARE /LPF 12/17/19 22:05 Urine Ascorbic Acid NEGATIVE (NEGATIVE) 12/17/19 22:05 Urine Opiates Screen NEGATIVE 12/17/19 22:05 Urine Methadone Screen NEGATIVE 12/17/19 22:05 Ur Barbiturates Screen NEGATIVE 12/17/19 22:05 Ur Phencyclidine Scrn NEGATIVE 12/17/19 22:05 Ur Amphetamines Screen NEGATIVE 12/17/19 22:05 U Benzodiazepines Scrn NEGATIVE 12/17/19 22:05 Urine Cocaine Screen NEGATIVE 12/17/19 22:05 U Marijuana (THC) Screen NEGATIVE 12/17/19 22:05 12/17/19 21:55 Troponin I < 0.012 Impressions: Chest X-Ray 12/17/19 22:30 IMPRESSION: No acute disease. Plan Time Spent: Greater than 30 Minutes Stroke Is this a Stroke Patient?: No Acute Heart Failure Is this a Heart Failure Patient?: No
== END 2019-12-20 12:09 | disposition home or self-care (01) | DRG 637 ==
LOC: ER 20:12 → EH 23:46 → ICU 12-18 01:30 → 3W 12-18 22:56
PROVIDERS: ADMIT Anesthesiology; ATTEND Family Medicine
DX: E10.10 Type 1 diabetes mellitus with ketoacidosis without coma (principal); G93.41 Metabolic encephalopathy; N17.9 Acute kidney failure, unspecified; I50.32 Chronic diastolic (congestive) heart failure; J44.9 Chronic obstructive pulmonary disease, unspecified; F14.10 Cocaine abuse, uncomplicated; E86.0 Dehydration; E87.5 Hyperkalemia; R94.5 Abnormal results of liver function studies; F32.9 Major depressive disorder, single episode, unspecified; F17.200 Nicotine dependence, unspecified, uncomplicated; I11.0 Hypertensive heart disease with heart failure; N28.9 Disorder of kidney and ureter, unspecified; Z90.2 Acquired absence of lung [part of]; Z79.4 Long term (current) use of insulin; Z79.899 Other long term (current) drug therapy; Z91.19 Patient's noncompliance with other medical treatment and regimen; Z86.73 Personal history of transient ischemic attack (TIA), and cerebral infarction without residual deficits; Z23 Encounter for immunization
CPT/HCPCS: 36415; 71045; 80053; 80307; 81001; 82140; 82150; 82803; 82962; 83690; 83735; 84100; 84484; 85025; 85610; 93005; 93010; 96361; 96374; 96375; 99285; 99291; C9113; J0610; J1815; J2405; J3480; J3490; J7030; J7050

== ENCOUNTER 2019-12-25 10:09 | Inpatient (IN) | payer MEDICAID ==
[2019-12-25] MEDS ORDERED: NORMAL SALINE 1000 ML 1,000 ML IV PRN ×2 (10:49→15:35)
--- NOTE | 2019-12-25 10:51 | ER Document Report ---
ED Medical Screen (RME) - General Chief Complaint: High Blood Sugar Stated Complaint: BLOOD SUGAR PROBLEM, WEAKNESS, Time Seen by Provider: 12/25/19 10:44 Primary Care Provider: ERNST POTTER MD [Primary Care Provider] - Follow up as needed Mode of Arrival: Wheelchair Information source: Patient, Relative Notes: 54-year-old male presented to ED for elevated blood sugar. Sister states blood sugar was 461 last night. He was giving insulin last night but she is not sure how much. She states she does not know what the sugar was this morning because she was not there and he states he does not know. He states he has been very weak tired and throwing up this morning. Does have a history of diabetes but she does not know if it is type I or type II. He is very weak at this time and states he feels very very sick. I have greeted and performed a rapid initial assessment of this patient. A comprehensive ED assessment and evaluation of the patient, analysis of test results and completion of medical decision making process will be conducted by an additional ED providers. TRAVEL OUTSIDE OF THE [place] IN LAST 30 DAYS: No - Related Data Allergies/Adverse Reactions: No Known Allergies Allergy (Verified 06/08/17 20:19) Past Medical History - Past Medical History Cardiac Medical History: Reports: Hx Congestive Heart Failure - Diastolic, Hx Hypertension Denies: Hx Heart Attack Pulmonary Medical History: Reports: Hx COPD Denies: Hx Asthma Neurological Medical History: Reports: Hx Cerebrovascular Accident. Denies: Hx Seizures Endocrine Medical History: Reports: Hx Diabetes Mellitus Type 1. Denies: Hx Diabetes Mellitus Type 2, Hx Hyperthyroidism, Hx Hypothyroidism Renal/ Medical History: Reports: Hx Renal Insufficiency GI Medical History: Denies: Hx Cirrhosis, Hx Hepatitis Musculoskeltal Medical History: Denies Hx Arthritis, Denies Hx Gout Skin Medical History: Denies Hx Eczema, Denies Hx Psoriasis Psychiatric Medical History: Denies: Hx Depression Infectious Medical History: Denies: Hx Hepatitis Past Surgical History: Reports: Other - Removal of part of a lung as a child due to abscess. - Immunizations Immunizations up to date: Yes Hx Diphtheria, Pertussis, Tetanus Vaccination: Yes Physical Exam - Vital signs Vitals: Pulse Resp BP Pulse Ox 103 H 24 H 83/46 L 100 12/25/19 10:39 12/25/19 10:39 12/25/19 10:39 12/25/19 10:39 Course - Vital Signs Vital signs: Temp Pulse Resp BP Pulse Ox 103 H 24 H 83/46 L 100 12/25/19 10:39 12/25/19 10:39 12/25/19 10:39 12/25/19 10:39 Doctor's Discharge - Discharge Referrals: ERNST POTTER MD [Primary Care Provider] - Follow up as needed
[2019-12-25] MEDS ORDERED: DEXTROSE 50%-WATER 25 GM/50 ML DISP.SYRIN IV PRN ×4 (11:02→15:44)
[2019-12-25] MEDS ORDERED: GLUCAGON,HUMAN RECOMB 1 MG INJ IM PRN ×2 (11:02→15:44)
[2019-12-25] MEDS ORDERED: DEXTROSE 40% GEL 15 GM TUBE PO PRN ×4 (11:02→15:44)
[2019-12-25] MEDS ORDERED: NORMAL SALINE 1000 ML 1,000 ML IV ONE ×2 (11:03→15:41)
[2019-12-25] MEDS ORDERED: DEXTROSE 5%-WATER 1000 ML 1,000 ML with SODIUM BICARBONATE 150 MEQ IV ONE ×2 (11:03)
--- NOTE | 2019-12-25 11:08 | ER Document Report ---
ED Blood Sugar Problem - General Chief Complaint: High Blood Sugar Stated Complaint: BLOOD SUGAR PROBLEM, WEAKNESS, Time Seen by Provider: 12/25/19 10:44 Primary Care Provider: ERNST POTTER MD [Primary Care Provider] - Follow up as needed Mode of Arrival: Wheelchair Notes: 54-year-old male with a history of diabetes presents to the emergency department with high blood sugars and weakness. Patient has history of diabetic ketoacidosis in the past for the last several days has been feeling a lot weaker than normal. Increased polyuria. Been trying to drink and keep up but has not been able to. Blood sugar last night was 461 this morning it was off scale high. Patient is been feeling very weak. Denies any fever chills cough or sore throat denies chest pain or shortness of breath he has had nausea and has vomited several times each day. Denies any abdominal pain denies diarrhea constipation. Denies hematuria or dysuria but does have increased frequency. He states that he is taking his insulin religiously. Nu[place] any alcohol or other illicit substances. Chest pain or trouble breathing TRAVEL OUTSIDE OF THE [place] IN LAST 30 DAYS: No - Related Data Allergies/Adverse Reactions: No Known Allergies Allergy (Verified 06/08/17 20:19) Past Medical History - General Information source: Patient, Relative - Social History Smoking Status: Current Every Day Smoker Family History: Reviewed & Not Pertinent, DM, Hypertension - Past Medical History Cardiac Medical History: Reports: Hx Congestive Heart Failure - Diastolic, Hx Hypertension Denies: Hx Heart Attack Pulmonary Medical History: Reports: Hx COPD Denies: Hx Asthma Neurological Medical History: Reports: Hx Cerebrovascular Accident. Denies: Hx Seizures Endocrine Medical History: Reports: Hx Diabetes Mellitus Type 1. Denies: Hx Diabetes Mellitus Type 2, Hx Hyperthyroidism, Hx Hypothyroidism Renal/ Medical History: Reports: Hx Renal Insufficiency GI Medical History: Denies: Hx Cirrhosis, Hx Hepatitis Musculoskeletal Medical History: Denies Hx Arthritis, Denies Hx Gout Skin Medical History: Denies Hx Eczema, Denies Hx Psoriasis Psychiatric Medical History: Denies: Hx Depression Infectious Medical History: Denies: Hx Hepatitis Past Surgical History: Reports: Other - Removal of part of a lung as a child due to abscess. - Immunizations Immunizations up to date: Yes Hx Diphtheria, Pertussis, Tetanus Vaccination: Yes Review of Systems - Review of Systems Constitutional: denies: Chills, Fever EENT: No symptoms reported Cardiovascular: denies: Chest pain, Orthopnea, Dyspnea Gastrointestinal: Nausea, Vomiting, Poor appetite, Poor fluid intake. denies: Abdominal pain, Diarrhea, Constipation Genitourinary: Frequency. denies: Burning, Dysuria, Discharge, Flank pain, Hematuria Musculoskeletal: denies: Back pain, Muscle pain Skin: Dryness. denies: Rash Neurological/Psychological: Weakness. denies: Paralysis, Seizure, Lost consciousness, Headaches, Speech impairment, Numbness, Tingling -: Yes All other systems reviewed and negative Physical Exam - Vital signs Vitals: Pulse Resp BP Pulse Ox 103 H 24 H 83/46 L 100 12/25/19 10:39 12/25/19 10:39 12/25/19 10:39 12/25/19 10:39 - Notes Notes: GENERAL_APPEARANCE: well_nourished, alert, cooperative, no_acute_distress, no_obvious_discomfort. VITALS: reviewed, see vital signs table. HEAD: no_swelling\tenderness on the head. EYES: PERRL, EOMI, conjunctiva_clear. NOSE: no_nasal_discharge. MOUTH: Tongue lips and mucous membranes THROAT: no_tonsilar_inflammation, no_airway_obstruction. no_lymphadenopathy NECK: supple, no_neck_tenderness, (-)thyromegaly. BACK: no_back_tenderness. CHEST_WALL: no_chest_tenderness. LUNGS: no_wheezing, no_rales, no_rhonchi, (-)accessory muscle use, good air exchange bilateral. HEART: normal_rate, normal_rhythm, normal_S1, normal_S2, (-)S3, (-)S4, no_murmur, no_rub. ABDOMEN: soft, no_abd_tenderness, (-)guarding, (-)rebound, no_organomegaly, no_abd_masses. EXTREMITIES: good pulses in all_extremities, no_swelling\tenderness in the extremities, no_edema. SKIN: warm, dry, pale_color, no_rash. MENTAL_STATUS: speech_clear, oriented_X_3, agitated_affect, res ponds_appropriately to questions. NEURO: Neg Motor or Sensory Deficits on exam, CN 2-12 intact, No cerbellar signs Course - Re-evaluation Re-evalutation: 12/25/19 11:08 54-year-old male with a history of diabetes presents to the emergency department and what appears to be diabetic ketoacidosis. We will do a full work-up give IV fluids IV insulin drip. Check electrolytes. Patient is very weak initial blood pressure was in the 80s. Likely due to volume depletion. No history of fever chills. 12/25/19 14:08 The patient's blood sugar has responded with an insulin drip. After several liters of IV fluids the patient's blood pressure is up over 100. Has required additional antiemetics. I think he was just hypotensive initially due to volume depletion. I do not think he has underlying infection at this time I spoken with the intensive care and hospitalist physician no admit him to the hospital. - Vital Signs Vital signs: Temp Pulse Resp BP Pulse Ox 103 H 17 119/85 100 12/25/19 10:39 12/25/19 13:01 12/25/19 13:00 12/25/19 13:01 - Laboratory Result Diagrams: 12/25/19 11:16 12/25/19 11:16 Laboratory results interpreted by me: 12/25/19 12/25/19 12/25/19 11:16 11:16 11:16 RBC 3.88 L Hgb 11.7 L Hct 35.9 L RDW 16.9 H Lymph % (Auto) 9.5 L Seg Neutrophils % 82.9 H VBG HCO3 Chloride 93 L Carbon Dioxide 16 L Anion Gap 29 H BUN 43 H Creatinine 1.67 H Est GFR ( Amer) 52 L Est GFR (MDRD) Non-Af 43 L Glucose 622 H* Lactic Acid 5.2 H Calcium 11.0 H ALT 51 H Alkaline Phosphatase 173 H Creatine Kinase 42 L 12/25/19 12:41 RBC Hgb Hct RDW Lymph % (Auto) Seg Neutrophils % VBG HCO3 17.7 L Chloride Carbon Dioxide Anion Gap BUN Creatinine Est GFR ( Amer) Est GFR (MDRD) Non-Af Glucose Lactic Acid Calcium ALT Alkaline Phosphatase Creatine Kinase - Diagnostic Test Radiology reviewed: Reports reviewed Radiology results interpreted by me: 12/25/19 14:09 Chest X-Ray 12/25/19 11:09 IMPRESSION: 1. No significant interval changes since the prior study dated 12/17/2019 and 10/26/2019. No acute findings. Critical Care Note - Critical Care Note Total time excluding time spent on procedures (mins): 35 Discharge - Discharge Clinical Impression: DKA (diabetic ketoacidoses) Qualifiers: Diabetes mellitus type: type 1 Hypotension Qualifiers: Trimester: unspecified trimester Condition: Fair Disposition: ADMITTED INPATIENT Admitting Provider: Emma (Hospitalist) Unit Admitted: IMCU Referrals: ERNST POTTER MD [Primary Care Provider] - Follow up as needed
[2019-12-25 11:35] LABS: ABSOLUTE BASOPHILS # (AUTO) 0.1 10^3/uL (0.0-0.2); ABSOLUTE LYMPHOCYTES (AUTO) 0.7 10^3/uL (0.5-4.7); ABSOLUTE MONOCYTES (AUTO) 0.5 10^3/uL (0.1-1.4); ABSOLUTE NEUT (AUTO) 6.5 10^3/uL (1.7-8.2); BASOPHILS % (AUTO) 0.7 % (0-2); EOSINOPHILS % (AUTO) 0.1 % (0-6); HEMATOCRIT 35.9 % (37.9-51.0); HEMOGLOBIN 11.7 g/dL (13.5-17.0); LYMPHOCYTES % (AUTO) 9.5 % (13-45); MEAN CORPUSCULAR HEMOGLOBIN 30.2 pg (27.0-33.4); MEAN CORPUSCULAR HGB CONC 32.7 g/dL (32.0-36.0); MONOCYTES % (AUTO) 6.8 % (3-13); PLATELET COUNT 371 10^3/uL (150-450); RED BLOOD COUNT 3.88 10^6/uL (4.35-5.55); RED CELL DISTRIBUTION WIDTH 16.9 % (11.5-14.0); SEGMENTED NEUTROPHILS % (AUTO) 82.9 % (42-78); TOTAL CELLS COUNTED % (AUTO) 100 %; WHITE BLOOD COUNT 7.8 10^3/uL (4.0-10.5)
[2019-12-25] MEDS ORDERED: ONDANSETRON HCL INJ/PF 4 MG/2 ML SDV ONE (11:41)
[2019-12-25 11:47] LABS: MEAN CORPUSCULAR VOLUME 93 fl (80-97)
[2019-12-25 11:54] LABS: ALBUMIN 4.6 g/dL (3.5-5.0); ALKALINE PHOSPHATASE 173 U/L (38-126); ASPARTATE AMINO TRANSFERASE 32 U/L (17-59); BILIRUBIN,DIRECT 0.2 mg/dL (0.0-0.4); BILIRUBIN,TOTAL 0.4 mg/dL (0.2-1.3); BLOOD UREA NITROGEN 43 mg/dL (7-20); CREATINE KINASE 42 U/L (55-170); POTASSIUM 3.8 mmol/L (3.6-5.0); TOTAL PROTEIN 7.8 g/dL (6.3-8.2)
--- NOTE | 2019-12-25 11:54 | RADIOLOGY REPORT (SQ) ---
EXAM DESCRIPTION: CHEST SINGLE VIEW IMAGES COMPLETED DATE/TIME: 12/25/2019 11:42 am REASON FOR STUDY: cough high blood sugar COMPARISON: 12/17/2019 and 10/26/2019 EXAM PARAMETERS: NUMBER OF VIEWS: One view. TECHNIQUE: Single frontal radiographic view of the chest acquired. RADIATION DOSE: NA LIMITATIONS: None. FINDINGS: LUNGS AND PLEURA: Stable slight pleuroparenchymal changes at the right lung base. Stable biapical scarring/fibrosis. No acute pulmonary consolidation. Post surgical changes right hilar re gion, unchanged. No pneumothorax or pleural effusion. MEDIASTINUM AND HILAR STRUCTURES: No masses. Contour normal. HEART AND VASCULAR STRUCTURES: Heart normal in size. Normal vasculature. BONES: No acute findings. HARDWARE: None in the chest. OTHER: No other significant finding. IMPRESSION: 1. No significant interval changes since the prior study dated 12/17/2019 and 10/26/2019. No acute findings. TECHNICAL DOCUMENTATION: JOB ID: [id number] 2010 [facility]- All Rights Reserved Reading location - IP/workstation name: [email or web address]
[2019-12-25 11:58] LABS: CARBON DIOXIDE 16 mmol/L (22-30); CHLORIDE 93 mmol/L (98-107)
[2019-12-25 12:01] LABS: ALCOHOL < 10 mg/dL (NONE DETECTED)
[2019-12-25 12:02] LABS: GLUCOSE 622 mg/dL (75-110)
[2019-12-25] MEDS ORDERED: INSULIN REG, HUMAN 100 UNIT/ML 3 ML VIAL (PYX) ONE (12:02)
[2019-12-25 12:03] LABS: ANION GAP 29 (5-19)
[2019-12-25] MEDS: NORMAL SALINE 100 ML with INSULIN REGULAR, HUMAN 100 UNIT IV PRN ×2 (12:16)
[2019-12-25 13:02] LABS: VENOUS BLOOD BASE EXCESS -7.8 mmol/L; VENOUS BLOOD HCO3 17.7 mmol/L (20-32); VENOUS BLOOD PCO2 35.7 mmHg (35-63); VENOUS BLOOD PH 7.31 (7.30-7.42)
[2019-12-25] MEDS ORDERED: SODIUM BICARBONATE 8.4% INJ 50 MEQ/50 ML DISP.SYRIN ONE (13:07)
[2019-12-25] MEDS ORDERED: METOCLOPRAMIDE HCL INJ/PF 10 MG/2 ML SDV IV ONE (13:54)
[2019-12-25] MEDS ORDERED: ONDANSETRON 4 MG TAB.RAPDIS PO PRN (15:35)
[2019-12-25] MEDS ORDERED: IPRATROPIUM/ALBUTEROL 0.5-2.5 MG/3 ML AMPUL NEB PRN (15:35)
--- NOTE | 2019-12-25 15:50 | EKG REPORT ---
SEVERITY:- ABNORMAL ECG - SINUS RHYTHM LVH WITH SECONDARY REPOLARIZATION ABNORMALITY ANTERIOR Q WAVES, POSSIBLY DUE TO LVH ST DEPRESSION, CONSIDER ISCHEMIA, ANT-LAT LDS : Confirmed by: Dannielle Joshi MD 25-Dec-2019 15:48:59
[2019-12-25 16:32] LABS: APPEARANCE,URINE SLIGHTLY-CLOUDY; BILIRUBIN,URINE NEGATIVE (NEGATIVE); COLOR,URINE YELLOW; GLUCOSE, URINE >=500 mg/dL (NEGATIVE); KETONES,URINE 20 mg/dL (NEGATIVE); LEUKOCYTE ESTERASE,URINE NEGATIVE (NEGATIVE); NITRITE,URINE NEGATIVE (NEGATIVE); PROTEIN,URINE 30 mg/dL (NEGATIVE); URINE SPECIFIC GRAVITY 1.018; UROBILINOGEN,URINE NEGATIVE mg/dL (<2.0)
[2019-12-25] MEDS: ENOXAPARIN SODIUM INJ 40 MG/0.4 ML DISP.SYRIN SUBCUT SCH (16:36)
[2019-12-25 17:01] LABS: ALBUMIN 3.2 g/dL (3.5-5.0); ALKALINE PHOSPHATASE 133 U/L (38-126); ANION GAP 13 (5-19); ASPARTATE AMINO TRANSFERASE 21 U/L (17-59); BILIRUBIN,DIRECT 0.2 mg/dL (0.0-0.4); BILIRUBIN,TOTAL 0.4 mg/dL (0.2-1.3); BLOOD UREA NITROGEN 33 mg/dL (7-20); CALCIUM 8.8 mg/dL (8.4-10.2); CARBON DIOXIDE 25 mmol/L (22-30); CHLORIDE 100 mmol/L (98-107); GLUCOSE 302 mg/dL (75-110); POTASSIUM 3.4 mmol/L (3.6-5.0); TOTAL PROTEIN 5.8 g/dL (6.3-8.2)
[2019-12-25] MEDS: PANTOPRAZOLE SODIUM 40 MG TABLET.DR PO SCH (18:33)
[2019-12-25] MEDS: INSULIN LISPRO 100 UNIT/ML 3 ML VIAL SUBCUT SCH ×3 (19:28→22:06)
[2019-12-25] MEDS ORDERED: DEXTROSE 5%-1/2 NORMAL SALINE 1,000 ML IV PRN (19:43)
[2019-12-25 21:45] LABS: ALBUMIN 3.1 g/dL (3.5-5.0); ALKALINE PHOSPHATASE 108 U/L (38-126); ANION GAP 9 (5-19); ASPARTATE AMINO TRANSFERASE 23 U/L (17-59); BILIRUBIN,DIRECT 0.2 mg/dL (0.0-0.4); BILIRUBIN,TOTAL 0.4 mg/dL (0.2-1.3); BLOOD UREA NITROGEN 25 mg/dL (7-20); CALCIUM 8.5 mg/dL (8.4-10.2); CARBON DIOXIDE 31 mmol/L (22-30); CHLORIDE 97 mmol/L (98-107); GLUCOSE 202 mg/dL (75-110); TOTAL PROTEIN 5.7 g/dL (6.3-8.2)
[2019-12-25 21:53] LABS: POTASSIUM 2.6 mmol/L (3.6-5.0)
[2019-12-25] MEDS ORDERED: POTASSIUM CHLORIDE 20 MEQ PACKET PO ONE (22:00)
[2019-12-25] MEDS: INSULIN GLARGINE,HUM.REC.ANLOG 1,000 UNIT/10 ML VIAL SUBCUT SCH (22:07)
--- NOTE | 2019-12-25 22:15 | PDOC H&P ---
History of Present Illness Admission Date/PCP: 12/25/19 14:46 ERNST POTTER MD Patient complains of: Nausea and vomiting History of Present Illness: AMPARO PHAN is a 54 year old male, past medical history of uncontrolled diabetes poorly compliant with medication, multiple admissions due to DKA last episode December 17, frequent admissions to the ICU due to this same problem DKA. He was sent to the ED when his sister noted that his blood sugar at home was 451. When I talked to him in the ED he was yelling and very frustrated. He said that he was started of giving himself insulin. He refuses to answer when I asked him if he has been compliant with his insulin. Blood glucose in the ED noted to be 622, anion gap of 29, potassium of 3.4. Patient was started on an insulin drip and was given 2 bolus of normal saline by the emergency room department and hospitalist service was called for further evaluation and management. Past Medical History Cardiac Medical History: Reports: Congestive Heart Failure - Diastolic, Hypertension Denies: Myocardial Infarction Pulmonary Medical History: Reports: Chronic Obstructive Pulmonary Disease (COPD) Denies: Asthma Neurological Medical History: Denies: Seizures Endocrine Medical History: Reports: Diabetes Mellitus Type 1 Denies: Diabetes Mellitus Type 2, Hyperthyroidism, Hypothyroidism GI Medical History: Denies: Cirrhosis, Hepatitis Musculoskeltal Medical History: Denies: Arthritis, Gout Skin Medical History: Denies: Eczema, Psoriasis Psychiatric Medical History: Denies: Depression Hematology: Denies: Anemia, Bleeding Tendencies Past Surgical History Past Surgical History: Reports: Other - Removal of part of a lung as a child due to abscess. Social History Information Source: Patient Lives with: Family Smoking Status: Unknown if Ever Smoked Frequency of Alcohol Use: Heavy Hx Recreational Drug Use: Yes Drugs: Cocaine, Heroin Hx Prescription Drug Abuse: Yes Family History Family History: Reviewed & Not Pertinent, DM, Hypertension Parental Family History Reviewed: Yes Children Family History Reviewed: Yes Sibling(s) Family History Reviewed.: Yes Medication/Allergy Home Medications: Amlodipine Besylate [Norvasc 10 mg Tablet] 10 mg PO QHS #30 tablet 12/20/19 Insulin Glargine,Hum.rec.anlog [Lantus Insulin 100 Unit/mL Insulin Pen] 20 unit SUBCUT Q12 #1 unit 12/20/19 Insulin Lispro [Humalog Kwikpen U-100] 15 units SQ PC 12/25/19 Lisinopril 20 mg PO DAILY 12/25/19 Pantoprazole Sodium [Protonix [address] Tablet] 40 mg PO BID 12/25/19 Allergies/Adverse Reactions: No Known Allergies Allergy (Verified 06/08/17 20:19) Review of Systems Constitutional: PRESENT: anorexia, fatigue, headache(s) Nose, Mouth, and Throat: PRESENT: headache(s) Cardiovascular: PRESENT: chest pain, dyspnea on exertion Respiratory: ABSENT: cough Physical Exam Vital Signs: Temp Pulse Resp BP Pulse Ox 103 H 17 142/85 H 99 12/25/19 10:39 12/25/19 21:01 12/25/19 21:01 12/25/19 21:01 Intake & Output 12/24/19 12/25/19 12/26/19 06:59 06:59 06:59 Intake Total 4175 Balance 4175 Weight 47.5 kg General appearance: PRESENT: no acute distress, cooperative, disheveled Head exam: PRESENT: atraumatic, normocephalic Eye exam: PRESENT: EOMI, PERRLA Mouth exam: PRESENT: moist Neck exam: PRESENT: full ROM Respiratory exam: PRESENT: clear to auscultation baldemar, symmetrical, unlabored Cardiovascular exam: PRESENT: RRR, +S1, +S2 Pulses: PRESENT: +2 pedal pulses bilateral GI/Abdominal exam: PRESENT: normal bowel sounds, soft. ABSENT: rebound, tenderness Extremities exam: PRESENT: full ROM Musculoskeletal exam: PRESENT: full ROM Neurological exam: PRESENT: alert, awake Psychiatric exam: PRESENT: agitated Skin exam: PRESENT: normal color Results Laboratory Results: 12/25/19 11:16 12/25/19 21:11 12/25/19 12/25/19 12/25/19 11:16 11:16 11:16 WBC 7.8 RBC 3.88 L Hgb 11.7 L Hct 35.9 L MCV 93 D MCH 30.2 MCHC 32.7 RDW 16.9 H Plt Count 371 Seg Neutrophils % 82.9 H VBG pH VBG pCO2 VBG HCO3 VBG Base Excess Sodium 138.2 Potassium 3.8 Chloride 93 L Carbon Dioxide 16 L Anion Gap 29 H BUN 43 H Creatinine 1.67 H Est GFR ( Amer) 52 L Glucose 622 H* Lactic Acid 5.2 H Calcium 11.0 H Total Bilirubin 0.4 AST 32 Alkaline Phosphatase 173 H Total Protein 7.8 Albumin 4.6 Urine Color Urine Appearance Urine pH Ur Specific [place] Urine Protein Urine Glucose (UA) Urine Ketones Urine Blood Urine Nitrite Ur Leukocyte Esterase Urine WBC (Auto) Urine RBC (Auto) 12/25/19 12/25/19 12/25/19 11:16 12:41 16:06 WBC RBC Hgb Hct MCV MCH MCHC RDW Plt Count Seg Neutrophils % VBG pH Cancelled 7.31 VBG pCO2 Cancelled 35.7 VBG HCO3 Cancelled 17.7 L VBG Base Excess Cancelled -7.8 Sodium 138.3 Potassium 3.4 L Chloride 100 Carbon Dioxide 25 Anion Gap 13 BUN 33 H Creatinine 1.11 Est GFR ( Amer) > 60 Glucose 302 H Lactic Acid Calcium 8.8 Total Bilirubin 0.4 AST 21 Alkaline Phosphatase 133 H Total Protein 5.8 L Albumin 3.2 L Urine Color Urine Appearance Urine pH Ur Specific [place] Urine Protein Urine Glucose (UA) Urine Ketones Urine Blood Urine Nitrite Ur Leukocyte Esterase Urine WBC (Auto) Urine RBC (Auto) 12/25/19 12/25/19 16:06 21:11 WBC RBC Hgb Hct MCV MCH MCHC RDW Plt Count Seg Neutrophils % VBG pH VBG pCO2 VBG HCO3 VBG Base Excess Sodium 137.0 Potassium 2.6 L* Chloride 97 L Carbon Dioxide 31 H Anion Gap 9 BUN 25 H Creatinine 0.89 Est GFR ( Amer) > 60 Glucose 202 H Lactic Acid Calcium 8.5 Total Bilirubin 0.4 AST 23 Alkaline Phosphatase 108 Total Protein 5.7 L Albumin 3.1 L Urine Color YELLOW Urine Appearance SLIGHTLY-CLOUDY Urine pH 5.0 Ur Specific [place] 1.018 Urine Protein 30 H Urine Glucose (UA) >=500 H Urine Ketones 20 H Urine Blood NEGATIVE Urine Nitrite NEGATIVE Ur Leukocyte Esterase NEGATIVE Urine WBC (Auto) 2 Urine RBC (Auto) 1 12/25/19 11:16 Creatine Kinase 42 L Impressions: Chest X-Ray 12/25/19 11:09 IMPRESSION: 1. No significant interval changes since the prior study dated 12/17/2019 and 10/26/2019. No acute findings. Assessment and Plan - Diagnosis (1) DKA (diabetic ketoacidoses) Qualifiers: Diabetes mellitus type: type 1 Diabetes mellitus complication detail: without coma Qualified Code(s): E10.10 - Type 1 diabetes mellitus with ketoacidosis without coma Is this a current diagnosis for this admission?: Yes Plan: -Multiple admissions for DKA secondary to noncompliance - Positive ketones, anion gap of 29, pH of 7.19, glucose of 622 -Started on IV fluids, insulin drip -Given bicarbonate due to decreased pH -We will continue IV fluids -Started on Lantus and with meals insulin. Please overlap this before stopping insulin drip -CMP every 4 -Replete potassium as needed (2) High anion gap metabolic acidosis Is this a current diagnosis for this admission?: Yes Plan: Anion gap 29 decreased to 13 -Secondary to DKA -On IV fluids and insulin (3) CHF (congestive heart failure) Qualifiers: Heart failure type: unspecified Heart failure chronicity: unspecified Qualified Code(s): I50.9 - Heart failure, unspecified Is this a current diagnosis for this admission?: Yes Plan: -We will resume carvedilol, aspirin, lisinopril. -Does not appear decompensated or fluid overloaded (4) Depression Qualifiers: Depression Type: unspecified Is this a current diagnosis for this admission?: Yes (5) Hypertension Qualifiers: Hypertension type: essential hypertension Qualified Code(s): I10 - Essential (primary) hypertension Is this a current diagnosis for this admission?: Yes Plan: Resume lisinopril amlodipine (6) Medically noncompliant Is this a current diagnosis for this admission?: Yes - Time Time Spent with patient: 35 or more minutes Medications reviewed and adjusted accordingly: Yes Anticipated Discharge Disposition: Home with Home Health Anticipated Discharge Timeframe: TBD
[2019-12-25] MEDS: POTASSI CL 20 MEQ/50 ML RIDER 20 MEQ/50 ML RTUPB IV SCH (22:44)
[2019-12-26] MEDS: POTASSI CL 20 MEQ/50 ML RIDER 20 MEQ/50 ML RTUPB IV SCH ×3 (00:45→09:34)
[2019-12-26 01:31] LABS: ALKALINE PHOSPHATASE 122 U/L (38-126); ANION GAP 14 (5-19); ASPARTATE AMINO TRANSFERASE 22 U/L (17-59); BILIRUBIN,DIRECT 0.3 mg/dL (0.0-0.4); BILIRUBIN,TOTAL 0.5 mg/dL (0.2-1.3); BLOOD UREA NITROGEN 20 mg/dL (7-20); CARBON DIOXIDE 24 mmol/L (22-30); CHLORIDE 97 mmol/L (98-107); GLUCOSE 344 mg/dL (75-110); TOTAL PROTEIN 5.5 g/dL (6.3-8.2)
[2019-12-26 02:16] LABS: CALCIUM 8.1 mg/dL (8.4-10.2)
[2019-12-26 02:21] LABS: POTASSIUM 3.6 mmol/L (3.6-5.0)
[2019-12-26] MEDS ORDERED: INSULIN GLARGINE,HUM.REC.ANLOG 1,000 UNIT/10 ML VIAL SUBCUT ONE (03:00)
[2019-12-26] MEDS ORDERED: INSULIN LISPRO 100 UNIT/ML 3 ML VIAL SUBCUT ONE (04:47)
[2019-12-26] MEDS: PANTOPRAZOLE SODIUM 40 MG TABLET.DR PO SCH ×3 (05:52→17:18)
[2019-12-26 05:59] LABS: ABSOLUTE BASOPHILS # (AUTO) 0.1 10^3/uL (0.0-0.2); ABSOLUTE LYMPHOCYTES (AUTO) 0.7 10^3/uL (0.5-4.7); ABSOLUTE MONOCYTES (AUTO) 0.4 10^3/uL (0.1-1.4); ABSOLUTE NEUT (AUTO) 5.4 10^3/uL (1.7-8.2); BASOPHILS % (AUTO) 0.8 % (0-2); EOSINOPHILS % (AUTO) 0.2 % (0-6); HEMATOCRIT 27.1 % (37.9-51.0); MEAN CORPUSCULAR HEMOGLOBIN 30.2 pg (27.0-33.4); MEAN CORPUSCULAR HGB CONC 33.8 g/dL (32.0-36.0); MONOCYTES % (AUTO) 5.5 % (3-13); PLATELET COUNT 287 10^3/uL (150-450); RED BLOOD COUNT 3.04 10^6/uL (4.35-5.55); RED CELL DISTRIBUTION WIDTH 16.3 % (11.5-14.0); SEGMENTED NEUTROPHILS % (AUTO) 82.5 % (42-78); TOTAL CELLS COUNTED % (AUTO) 100 %; WHITE BLOOD COUNT 6.5 10^3/uL (4.0-10.5)
[2019-12-26 06:07] LABS: HEMOGLOBIN 9.2 g/dL (13.5-17.0); MEAN CORPUSCULAR VOLUME 89 fl (80-97)
[2019-12-26 06:16] LABS: ALKALINE PHOSPHATASE 115 U/L (38-126); ASPARTATE AMINO TRANSFERASE 25 U/L (17-59); BILIRUBIN,DIRECT 0.1 mg/dL (0.0-0.4); BILIRUBIN,TOTAL 0.4 mg/dL (0.2-1.3); BLOOD UREA NITROGEN 19 mg/dL (7-20); CALCIUM 8.2 mg/dL (8.4-10.2); POTASSIUM 3.3 mmol/L (3.6-5.0); TOTAL PROTEIN 5.6 g/dL (6.3-8.2)
[2019-12-26 06:21] LABS: CARBON DIOXIDE 16 mmol/L (22-30); CHLORIDE 96 mmol/L (98-107)
[2019-12-26 06:35] LABS: ANION GAP 22 (5-19)
[2019-12-26 06:38] LABS: GLUCOSE 465 mg/dL (75-110)
[2019-12-26] MEDS: NORMAL SALINE 100 ML with INSULIN REGULAR, HUMAN 100 UNIT IV PRN ×2 (07:12)
[2019-12-26] MEDS: INSULIN LISPRO 100 UNIT/ML 3 ML VIAL SUBCUT SCH ×8 (08:30→21:10)
[2019-12-26] MEDS: DEXTROSE 5%-1/2 NORMAL SALINE 1,000 ML IV PRN ×2 (09:20→19:29)
[2019-12-26] MEDS: ENOXAPARIN SODIUM INJ 40 MG/0.4 ML DISP.SYRIN SUBCUT SCH (11:30)
[2019-12-26] MEDS: INSULIN GLARGINE,HUM.REC.ANLOG 1,000 UNIT/10 ML VIAL SUBCUT SCH ×2 (11:35→21:11)
[2019-12-26] MEDS ORDERED: INFLUENZA QUAD (6MOS+) 2020-21 VAC 0.5 ML SYR IM ONE (11:45)
[2019-12-26 12:18] LABS: ALBUMIN 3.2 g/dL (3.5-5.0); ALKALINE PHOSPHATASE 122 U/L (38-126); ANION GAP 8 (5-19); ASPARTATE AMINO TRANSFERASE 38 U/L (17-59); BILIRUBIN,DIRECT 0.1 mg/dL (0.0-0.4); BILIRUBIN,TOTAL 0.4 mg/dL (0.2-1.3); BLOOD UREA NITROGEN 15 mg/dL (7-20); CALCIUM 8.6 mg/dL (8.4-10.2); CHLORIDE 101 mmol/L (98-107); GLUCOSE 125 mg/dL (75-110); POTASSIUM 3.3 mmol/L (3.6-5.0); TOTAL PROTEIN 6.1 g/dL (6.3-8.2)
[2019-12-26 12:22] LABS: CARBON DIOXIDE 27 mmol/L (22-30)
--- NOTE | 2019-12-26 13:43 | CDI QUERY ---
<ELIZA MALIN - Last Filed: 12/26/19 13:40> CDI Query CDI Review: We are seeking further clarification of documentation to reflect the severity of illness of your patient. Per H&P: Cardiac Medical History: Reports: Congestive Heart Failure - Diastolic, Hypertension CHF (congestive heart failure) Qualifiers: Heart failure type: unspecified Heart failure chronicity: unspecified Qualified Code(s): I50.9 - Heart failure, unspecified Is this a current diagnosis for this admission?: Yes Plan: -We will resume carvedilol, aspirin, lisinopril. -Does not appear decompensated or fluid overloaded Based on your medical judgement, can you further clarify in the Progress Notes: Type of heart failure: > Systolic Diastolic > Combined systolic/diastolic > Other (please specify) > None of the above / Not applicable - AND >Severity of heart failure >Acute, exacerbation, or decompensation >Chronic >Acute on chronic >Other (please specify) >None of the above / Not applicable Thank you for your consideration. SAMIR Dunham RN Clinical Screening Technician Physician Advisor <NAYA MUNSON P - Last Filed: 12/26/19 23:35> CDI Query CDI Review: Patient has Chronic systolic heart failure not decompensated
--- NOTE | 2019-12-26 21:02 | PDOC PROGRESS REPORT ---
Subjective Date:: 12/26/19 Subjective:: AMPARO PHAN is a 54 year old male, past medical history of uncontrolled getachew betes poorly compliant with medication, multiple admissions due to DKA last episode December 17, frequent admissions to the ICU due to this same problem DKA. He was sent to the ED when his sister noted that his blood sugar at home was 451. When I talked to him in the ED he was yelling and very frustrated. He said that he was started of giving himself insulin. He refuses to answer when I asked him if he has been compliant with his insulin. Blood glucose in the ED noted to be 622, anion gap of 29, potassium of 3.4. Patient was started on an insulin drip and was given 2 bolus of normal saline by the emergency room department and hospitalist service was called for further evaluation and management. D2 Hospital stay 12/26/19. Patient was seen and examined at bedside. HE was awake in bed eating. He went back to DKA and insulin drip had to be restarted for a few hours. He was started on his long acting, with meals plus sliding scale. AG again closed adn he was transitioned to subcu insulin. He had an episode of hypoglycemia 34 despite eating his dinner and he was given IV glucagon. BG increased to 109.D5W restarted. Reason For Visit: DKA (DIABETIC KETOACIDOSIS) Physical Exam Vital Signs: Temp Pulse Resp BP Pulse Ox 97.8 F 78 22 H 133/73 H 100 12/26/19 19:09 12/26/19 19:09 12/26/19 19:09 12/26/19 19:09 12/26/19 19:09 Intake & Output 12/25/19 12/26/19 12/27/19 06:59 06:59 06:59 Intake Total 5276 1100 Output Total 200 Balance 5276 900 Weight 47.5 kg General appearance: PRESENT: no acute distress, cooperative Head exam: PRESENT: atraumatic, normocephalic Eye exam: PRESENT: EOMI, PERRLA Mouth exam: PRESENT: moist Neck exam: PRESENT: full ROM Respiratory exam: PRESENT: clear to auscultation baldemar, symmetrical, unlabored Cardiovascular exam: PRESENT: RRR, +S1, +S2 Pulses: PRESENT: +2 pedal pulses bilateral GI/Abdominal exam: PRESENT: normal bowel sounds, soft. ABSENT: rebound, tenderness Extremities exam: PRESENT: full ROM Musculoskeletal exam: PRESENT: full ROM Neurological exam: PRESENT: alert, awake, oriented to person, oriented to place, oriented to time, oriented to situation Psychiatric exam: PRESENT: normal mood Skin exam: PRESENT: normal color Results Laboratory Results: 12/26/19 05:32 12/26/19 11:45 12/25/19 12/26/19 12/26/19 21:11 00:55 05:32 WBC RBC Hgb Hct MCV MCH MCHC RDW Plt Count Seg Neutrophils % Sodium 137.0 134.9 L 134.3 L Potassium 2.6 L* 3.6 D 3.3 L Chloride 97 L 97 L 96 L Carbon Dioxide 31 H 24 16 L Anion Gap 9 14 22 H BUN 25 H 20 19 Creatinine 0.89 0.87 0.95 Est GFR ( Amer) > 60 > 60 > 60 Glucose 202 H 344 H 465 H* Calcium 8.5 8.1 L 8.2 L Total Bilirubin 0.4 0.5 0.4 AST 23 22 25 Alkaline Phosphatase 108 122 115 Total Protein 5.7 L 5.5 L 5.6 L Albumin 3.1 L 3.0 L 3.0 L 12/26/19 12/26/19 05:32 11:45 WBC 6.5 RBC 3.04 L Hgb 9.2 L D Hct 27.1 L MCV 89 D MCH 30.2 MCHC 33.8 RDW 16.3 H Plt Count 287 Seg Neutrophils % 82.5 H Sodium 136.4 L Potassium 3.3 L Chloride 101 Carbon Dioxide 27 D Anion Gap 8 BUN 15 Creatinine 0.84 Est GFR ( Amer) > 60 Glucose 125 H Calcium 8.6 Total Bilirubin 0.4 AST 38 Alkaline Phosphatase 122 Total Protein 6.1 L Albumin 3.2 L 12/25/19 11:16 Creatine Kinase 42 L Impressions: Chest X-Ray 12/25/19 11:09 IMPRESSION: 1. No significant interval changes since the prior study dated 12/17/2019 and 10/26/2019. No acute findings. Assessment and Plan - Diagnosis (1) DKA (diabetic ketoacidoses) Qualifiers: Diabetes mellitus type: type 1 Diabetes mellitus complication detail: without coma Qualified Code(s): E10.10 - Type 1 diabetes mellitus with ketoacidosis without coma Is this a current diagnosis for this admission?: Yes Plan: -RESOLVED - Multiple admissions for DKA secondary to noncompliance - Positive ketones, anion gap of 29, pH of 7.19, glucose of 622 -AG had closed -Given bicarbonate due to decreased pH -We will continue IV fluids -transitioned to lantus, with meals insulin and SSI -Replete potassium as needed (2) High anion gap metabolic acidosis Is this a current diagnosis for this admission?: Yes Plan: - RESOLVED -Anion gap 29 decreased to 13 -Secondary to DKA -On IV fluids and insulin transitioned to subcu (3) CHF (congestive heart failure) Qualifiers: Heart failure type: unspecified Heart failure chronicity: unspecified Qualified Code(s): I50.9 - Heart failure, unspecified Is this a current diagnosis for this admission?: Yes Plan: -systolic heart failure not decompensated - We will resume carvedilol, aspirin, lisinopril. -Does not appear decompensated or fluid overloaded (4) Hypertension Qualifiers: Hypertension type: essential hypertension Qualified Code(s): I10 - Essential (primary) hypertension Is this a current diagnosis for this admission?: Yes Plan: Resume lisinopril amlodipine (5) Medically noncompliant Is this a current diagnosis for this admission?: Yes Plan: - evaluated by psych service last october 2019 - no depression as per note (6) Diabetes mellitus Qualifiers: Diabetes mellitus type: type 2 Diabetes mellitus technician terminal and repeater insulin use: with technician terminal and repeater use Diabetes mellitus complication status: with hyperglycemia Qualified Code(s): E11.65 - Type 2 diabetes mellitus with hyperglycemia; Z79.4 - halfway (current) use of insulin Is this a current diagnosis for this admission?: Yes Plan: - BG labile - on Lantus, with meals insulin and sliding scale - He is very non compliant with his insulin at home despite repeated ICU admissions - Accucheck - hypoglycemia protocol (7) Hypokalemia Is this a current diagnosis for this admission?: Yes Plan: - 2/2 DKA - K 3.3 replaced via IV - monitor and replace - Time Time Spent with patient: 25-34 minutes Medications reviewed and adjusted accordingly: Yes Anticipated Discharge Disposition: Home, Self Care Anticipated Discharge Timeframe: TBD
[2019-12-26] MEDS: AMLODIPINE BESYLATE 10 MG TABLET PO SCH (21:07)
[2019-12-27] MEDS: DEXTROSE 5%-1/2 NORMAL SALINE 1,000 ML IV PRN (05:43)
[2019-12-27] MEDS: PANTOPRAZOLE SODIUM 40 MG TABLET.DR PO SCH ×4 (05:43→17:49)
[2019-12-27 06:08] LABS: ABSOLUTE BASOPHILS # (AUTO) 0.1 10^3/uL (0.0-0.2); ABSOLUTE LYMPHOCYTES (AUTO) 1.3 10^3/uL (0.5-4.7); ABSOLUTE MONOCYTES (AUTO) 0.5 10^3/uL (0.1-1.4); BASOPHILS % (AUTO) 1.5 % (0-2); EOSINOPHILS % (AUTO) 1.3 % (0-6); HEMATOCRIT 28.9 % (37.9-51.0); HEMOGLOBIN 9.9 g/dL (13.5-17.0); LYMPHOCYTES % (AUTO) 33.9 % (13-45); MEAN CORPUSCULAR HEMOGLOBIN 29.9 pg (27.0-33.4); MEAN CORPUSCULAR HGB CONC 34.3 g/dL (32.0-36.0); MEAN CORPUSCULAR VOLUME 87 fl (80-97); MONOCYTES % (AUTO) 12.3 % (3-13); PLATELET COUNT 300 10^3/uL (150-450); RED BLOOD COUNT 3.32 10^6/uL (4.35-5.55); RED CELL DISTRIBUTION WIDTH 16.5 % (11.5-14.0); TOTAL CELLS COUNTED % (AUTO) 100 %; WHITE BLOOD COUNT 3.9 10^3/uL (4.0-10.5)
[2019-12-27 06:26] LABS: ALBUMIN 3.1 g/dL (3.5-5.0); ALKALINE PHOSPHATASE 124 U/L (38-126); ANION GAP 8 (5-19); ASPARTATE AMINO TRANSFERASE 61 U/L (17-59); BILIRUBIN,DIRECT 0.1 mg/dL (0.0-0.4); BILIRUBIN,TOTAL 0.4 mg/dL (0.2-1.3); BLOOD UREA NITROGEN 7 mg/dL (7-20); CALCIUM 8.6 mg/dL (8.4-10.2); CARBON DIOXIDE 28 mmol/L (22-30); CHLORIDE 97 mmol/L (98-107); GLUCOSE 161 mg/dL (75-110); POTASSIUM 3.2 mmol/L (3.6-5.0)
[2019-12-27 06:29] LABS: ANISOCYTOSIS 1+
[2019-12-27 06:30] LABS: POIKILOCYTOSIS SLIGHT; SPHEROCYTES SLIGHT
[2019-12-27 06:31] LABS: PLATELET COMMENT ADEQUATE
[2019-12-27] MEDS: INSULIN LISPRO 100 UNIT/ML 3 ML VIAL SUBCUT SCH ×7 (08:39→22:33)
[2019-12-27] MEDS ORDERED: INSULIN GLARGINE,HUM.REC.ANLOG 1,000 UNIT/10 ML VIAL (PYX) SUBCUT ONE (09:13)
[2019-12-27] MEDS: INSULIN GLARGINE,HUM.REC.ANLOG 1,000 UNIT/10 ML VIAL SUBCUT SCH ×2 (09:15→22:35)
[2019-12-27] MEDS: ENOXAPARIN SODIUM INJ 40 MG/0.4 ML DISP.SYRIN SUBCUT SCH (09:16)
[2019-12-27] MEDS ORDERED: POTASSIUM CHLORIDE 20 MEQ PACKET PO SCH (10:00)
--- NOTE | 2019-12-27 12:22 | PDOC PROGRESS REPORT ---
Subjective Date:: 12/27/19 Subjective:: 54 year old male, past medical history of uncontrolled diabetes poorly compliant with medication, multiple admissions due to DKA last episode December 17, frequent admissions to the ICU due to this same problem DKA. He was sent to the ED when his sister noted that his blood sugar at home was 451. When I talked to him in the ED he was yelling and very frustrated. He said that he was started of giving himself insulin. He refuses to answer when I asked him if he has been compliant with his insulin. Blood glucose in the ED noted to be 622, anion gap of 29, potassium of 3.4. Patient was started on an insulin drip and was given 2 bolus of normal saline by the emergency room department and hospitalist service was called for further evaluation and management. D2 Hospital stay 12/26/19. Patient was seen and examined at bedside. HE was awake in bed eating. He went back to DKA and insulin drip had to be restarted for a few hours. He was started on his long acting, with meals plus sliding scale. AG again closed adn he was transitioned to subcu insulin. He had an epis ode of hypoglycemia 34 despite eating his dinner and he was given IV glucagon. BG increased to 109.D5W restarted. 12/[id number]-pfin-old male with history of uncontrolled diabetes mellitus noncompliant with medications admitted with a DKA. Doing better. Comfortable in the chair communicating well. Denies any problems. Reason For Visit: DKA (DIABETIC KETOACIDOSIS) Physical Exam Vital Signs: Temp Pulse Resp BP Pulse Ox 97.7 F 73 17 150/89 H 97 12/27/19 08:02 12/27/19 10:04 12/27/19 10:04 12/27/19 08:02 12/27/19 10:04 Intake & Output 12/26/19 12/27/19 12/28/19 06:59 06:59 06:59 Intake Total 5276 2720 Output Total 200 Balance 5276 2520 Weight 47.5 kg 50.4 kg 50.4 kg General appearance: PRESENT: no acute distress, cooperative, thin Head exam: PRESENT: atraumatic Eye exam: PRESENT: PERRLA Mouth exam: PRESENT: moist, tongue midline Teeth exam: PRESENT: poor dentation Respiratory exam: PRESENT: clear to auscultation baldemar. ABSENT: rales, rhonchi, wheezes Cardiovascular exam: PRESENT: RRR. ABSENT: diastolic murmur, rubs, systolic murmur GI/Abdominal exam: PRESENT: normal bowel sounds, soft. ABSENT: distended, guarding, mass, organolmegaly, rebound, tenderness Rectal exam: PRESENT: deferred Extremities exam: PRESENT: full ROM. ABSENT: calf tenderness, clubbing, pedal edema Neurological exam: PRESENT: alert, awake, oriented to person, oriented to place, oriented to time, oriented to situation, CN II-XII grossly intact. ABSENT: motor sensory deficit Psychiatric exam: PRESENT: appropriate affect, normal mood. ABSENT: homicidal ideation, suicidal ideation Skin exam: PRESENT: dry, intact, warm. ABSENT: cyanosis, rash Results Laboratory Results: 12/27/19 05:31 12/27/19 05:31 12/26/19 12/27/19 12/27/19 11:45 05:31 05:31 WBC 3.9 L RBC 3.32 L Hgb 9.9 L Hct 28.9 L MCV 87 MCH 29.9 MCHC 34.3 RDW 16.5 H Plt Count 300 Seg Neutrophils % 51.0 Sodium 136.4 L 133.2 L Potassium 3.3 L 3.2 L Chloride 101 97 L Carbon Dioxide 27 D 28 Anion Gap 8 8 BUN 15 7 Creatinine 0.84 0.76 Est GFR ( Amer) > 60 > 60 Glucose 125 H 161 H Calcium 8.6 8.6 Total Bilirubin 0.4 0.4 AST 38 61 H Alkaline Phosphatase 122 124 Total Protein 6.1 L 6.0 L Albumin 3.2 L 3.1 L 12/25/19 11:16 Creatine Kinase 42 L Impressions: Chest X-Ray 12/25/19 11:09 IMPRESSION: 1. No significant interval changes since the prior study dated 12/17/2019 and 10/26/2019. No acute findings. Assessment and Plan - Diagnosis (1) DKA (diabetic ketoacidoses) Qualifiers: Diabetes mellitus type: type 1 Diabetes mellitus complication detail: without coma Qualified Code(s): E10.10 - Type 1 diabetes mellitus with ketoacidosis without coma Is this a current diagnosis for this admission?: Yes Plan: -RESOLVED - Multiple admissions for DKA secondary to noncompliance - Positive ketones, anion gap of 29, pH of 7.19, glucose of 622 -AG had closed -Given bicarbonate due to decreased pH -We will continue IV fluids -transitioned to lantus, with meals insulin and SSI -Replete potassium as needed 12/27/2019-to continue to supplement potassium. Latest blood sugar is 178. Continue the present management. (2) Metabolic acidosis due to diabetes mellitus Is this a current diagnosis for this admission?: Yes Plan: - RESOLVED -Anion gap 29 decreased to 13 -Secondary to DKA -On IV fluids and insulin transitioned to subcu 12/27/19-plan is to discontinue IV fluids from today. (3) CHF (congestive heart failure) Qualifiers: Heart failure type: unspecified Heart failure chronicity: unspecified Qualified Code(s): I50.9 - Heart failure, unspecified Is this a current diagnosis for this admission?: Yes Plan: -systolic heart failure not decompensated - We will resume carvedilol, aspirin, lisinopril. -Does not appear decompensated or fluid overloaded (4) Medically noncompliant Is this a current diagnosis for this admission?: Yes Plan: - evaluated by psych service last october 2019 - no depression as per note (5) Diabetes mellitus Qualifiers: Diabetes mellitus type: type 2 Diabetes mellitus senior living insulin use: with senior living use Diabetes mellitus complication status: with hyperglycemia Qualified Code(s): E11.65 - Type 2 diabetes mellitus with hyperglycemia; Z79.4 - senior living (current) use of insulin Is this a current diagnosis for this admission?: No Plan: - BG labile - on Lantus, with meals insulin and sliding scale - He is very non compliant with his insulin at home despite repeated ICU admissions - Accucheck - hypoglycemia protocol - Time Anticipated Discharge Disposition: Home, Self Care Anticipated Discharge Timeframe: within 48 hours
[2019-12-27] MEDS: AMLODIPINE BESYLATE 10 MG TABLET PO SCH (22:33)
[2019-12-28] MEDS: PANTOPRAZOLE SODIUM 40 MG TABLET.DR PO SCH ×3 (05:42→19:34)
[2019-12-28 06:42] LABS: ABSOLUTE LYMPHOCYTES (AUTO) 0.9 10^3/uL (0.5-4.7); ABSOLUTE MONOCYTES (AUTO) 0.4 10^3/uL (0.1-1.4); ABSOLUTE NEUT (AUTO) 1.5 10^3/uL (1.7-8.2); BASOPHILS % (AUTO) 1.2 % (0-2); HEMOGLOBIN 9.5 g/dL (13.5-17.0); LYMPHOCYTES % (AUTO) 31.4 % (13-45); MEAN CORPUSCULAR HEMOGLOBIN 29.7 pg (27.0-33.4); MEAN CORPUSCULAR VOLUME 87 fl (80-97); MONOCYTES % (AUTO) 13.2 % (3-13); PLATELET COUNT 279 10^3/uL (150-450); RED BLOOD COUNT 3.21 10^6/uL (4.35-5.55); RED CELL DISTRIBUTION WIDTH 16.1 % (11.5-14.0); SEGMENTED NEUTROPHILS % (AUTO) 53.2 % (42-78); TOTAL CELLS COUNTED % (AUTO) 100 %; WHITE BLOOD COUNT 2.9 10^3/uL (4.0-10.5)
[2019-12-28 07:09] LABS: ALBUMIN 3.2 g/dL (3.5-5.0); ALKALINE PHOSPHATASE 123 U/L (38-126); ANION GAP 7 (5-19); ASPARTATE AMINO TRANSFERASE 235 U/L (17-59); BILIRUBIN,DIRECT 0.2 mg/dL (0.0-0.4); BILIRUBIN,TOTAL 0.4 mg/dL (0.2-1.3); BLOOD UREA NITROGEN 8 mg/dL (7-20); CALCIUM 8.8 mg/dL (8.4-10.2); CARBON DIOXIDE 33 mmol/L (22-30); CHLORIDE 94 mmol/L (98-107); GLUCOSE 121 mg/dL (75-110)
[2019-12-28 07:17] LABS: POTASSIUM 2.9 mmol/L (3.6-5.0)
[2019-12-28] MEDS: INSULIN LISPRO 100 UNIT/ML 3 ML VIAL SUBCUT SCH ×5 (07:51→21:20)
[2019-12-28] MEDS ORDERED: INSULIN LISPRO 100 UNIT/ML 3 ML VIAL SUBCUT SCH (08:00)
[2019-12-28] MEDS ORDERED: POTASSIUM CHLORIDE 20 MEQ PACKET PO SCH (10:00)
[2019-12-28] MEDS: ENOXAPARIN SODIUM INJ 40 MG/0.4 ML DISP.SYRIN SUBCUT SCH (10:56)
--- NOTE | 2019-12-28 10:56 | PDOC PROGRESS REPORT ---
Subjective Date:: 12/28/19 Subjective:: 54 year old male, past medical history of uncontrolled diabetes poorly compliant with medication, multiple admissions due to DKA last episode December 17, frequent admissions to the ICU due to this same problem DKA. He was sent to the ED when his sister noted that his blood sugar at home was 451. When I talked to him in the ED he was yelling and very frustrated. He said that he was started of giving himself insulin. He refuses to answer when I asked him if he has been compliant with his insulin. Blood glucose in the ED noted to be 622, anion gap of 29, potassium of 3.4. Patient was started on an insulin drip and was given 2 bolus of normal saline by the emergency room department and hospitalist service was called for further evaluation and management. D2 Hospital stay 12/26/19. Patient was seen and examined at bedside. HE was awake in bed eating. He went back to DKA and insulin drip had to be restarted for a few hours. He was started on his long acting, with meals plus sliding scale. AG again closed adn he was transitioned to subcu insulin. He had an epis ode of hypoglycemia 34 despite eating his dinner and he was given IV glucagon. BG increased to 109.D5W restarted. 12/27/[id number]-uiuu-old male with history of uncontrolled diabetes mellitus noncompliant with medications admitted with a DKA. Doing better. Comfortable in the chair communicating well. Denies any problems. 12/28/2019-no acute events in the last 24 hours. Comfortably in the chair communicating well. Latest blood sugar is 101. To hold Humalog dose with meals. Serum potassium is low 2.9 to provide p.o. potassium. Reason For Visit: DKA (DIABETIC KETOACIDOSIS) Physical Exam Vital Signs: Temp Pulse Resp BP Pulse Ox 98.1 F 77 14 172/96 H 100 12/28/19 08:06 12/28/19 08:06 12/28/19 08:06 12/28/19 08:06 12/28/19 08:06 Intake & Output 12/27/19 12/28/19 12/29/19 06:59 06:59 06:59 Intake Total 2720 1172 Output Total 200 Balance 2520 1172 Weight 50.4 kg 50.5 kg General appearance: PRESENT: no acute distress, cooperative, thin Head exam: PRESENT: atraumatic Eye exam: PRESENT: PERRLA Neck exam: ABSENT: carotid bruit, JVD, lymphadenopathy, thyromegaly Respiratory exam: PRESENT: decreased breath sounds Cardiovascular exam: PRESENT: RRR. ABSENT: diastolic murmur, rubs, systolic murmur GI/Abdominal exam: PRESENT: normal bowel sounds, soft. ABSENT: distended, guarding, mass, organolmegaly, rebound, tenderness Rectal exam: PRESENT: deferred Extremities exam: PRESENT: full ROM. ABSENT: calf tenderness, clubbing, pedal edema Neurological exam: PRESENT: alert, awake, oriented to person, oriented to place, oriented to time, oriented to situation, CN II-XII grossly intact. ABSENT: m otor sensory deficit Psychiatric exam: PRESENT: appropriate affect, normal mood. ABSENT: homicidal ideation, suicidal ideation Results Laboratory Results: 12/28/19 05:23 12/28/19 05:23 12/28/19 12/28/19 05:23 05:23 WBC 2.9 L RBC 3.21 L Hgb 9.5 L Hct 28.0 L MCV 87 MCH 29.7 MCHC 34.0 RDW 16.1 H Plt Count 279 Seg Neutrophils % 53.2 Sodium 133.9 L Potassium 2.9 L* Chloride 94 L Carbon Dioxide 33 H Anion Gap 7 BUN 8 Creatinine 0.66 Est GFR ( Amer) > 60 Glucose 121 H Calcium 8.8 Magnesium 1.7 Total Bilirubin 0.4 AST 235 H Alkaline Phosphatase 123 Total Protein 6.0 L Albumin 3.2 L 12/25/19 11:16 Creatine Kinase 42 L Impressions: Chest X-Ray 12/25/19 11:09 IMPRESSION: 1. No significant interval changes since the prior study dated 12/17/2019 and 10/26/2019. No acute findings. Assessment and Plan - Diagnosis (1) DKA (diabetic ketoacidoses) Qualifiers: Diabetes mellitus type: type 1 Diabetes mellitus complication detail: without coma Qualified Code(s): E10.10 - Type 1 diabetes mellitus with ketoacidosis without coma Is this a current diagnosis for this admission?: Yes Plan: -RESOLVED - Multiple admissions for DKA secondary to noncompliance - Positive ketones, anion gap of 29, pH of 7.19, glucose of 622 -AG had closed -Given bicarbonate due to decreased pH -We will continue IV fluids -transitioned to lantus, with meals insulin and SSI -Replete potassium as needed 12/27/2019-to continue to supplement potassium. Latest blood sugar is 178. Continue the present management. 12/28/2019-serum potassium is 2.9 today. To give 40 mg of p.o. potassium. His blood sugar is 101. To continue Lantus, to hold the Humalog with meals. (2) Metabolic acidosis due to diabetes mellitus Is this a current diagnosis for this admission?: Yes Plan: - RESOLVED -Anion gap 29 decreased to 13 -Secondary to DKA -On IV fluids and insulin transitioned to subcu 12/27/19-plan is to discontinue IV fluids from today. (3) CHF (congestive heart failure) Qualifiers: Heart failure type: unspecified Heart failure chronicity: unspecified Qualified Code(s): I50.9 - Heart failure, unspecified Is this a current diagnosis for this admission?: Yes Plan: -systolic heart failure not decompensated - We will resume carvedilol, aspirin, lisinopril. -Does not appear decompensated or fluid overloaded (4) Medically noncompliant Is this a current diagnosis for this admission?: Yes Plan: - evaluated by psych service last october 2019 - no depression as per note (5) Diabetes mellitus Qualifiers: Diabetes mellitus type: type 2 Diabetes mellitus longwall headgate operator insulin use: with alf use Diabetes mellitus complication status: with hyperglycemia Qualified Code(s): E11.65 - Type 2 diabetes mellitus with hyperglycemia; Z79.4 - termite control servicer (current) use of insulin Is this a current diagnosis for this admission?: No Plan: - BG labile - on Lantus, with meals insulin and sliding scale - He is very non compliant with his insulin at home despite repeated ICU admissions - Accucheck - hypoglycemia protocol - Time Anticipated Discharge Disposition: Home, Self Care Anticipated Discharge Timeframe: within 48 hours
[2019-12-28] MEDS: INSULIN GLARGINE,HUM.REC.ANLOG 1,000 UNIT/10 ML VIAL SUBCUT SCH ×2 (10:57→21:20)
[2019-12-28] MEDS: AMLODIPINE BESYLATE 10 MG TABLET PO SCH (21:20)
[2019-12-29 07:26] LABS: ALBUMIN 3.3 g/dL (3.5-5.0); ALKALINE PHOSPHATASE 144 U/L (38-126); ANION GAP 9 (5-19); ASPARTATE AMINO TRANSFERASE 307 U/L (17-59); BILIRUBIN,DIRECT 0.1 mg/dL (0.0-0.4); BILIRUBIN,TOTAL 0.3 mg/dL (0.2-1.3); BLOOD UREA NITROGEN 15 mg/dL (7-20); CALCIUM 9.3 mg/dL (8.4-10.2); CARBON DIOXIDE 31 mmol/L (22-30); CHLORIDE 94 mmol/L (98-107); GLUCOSE 155 mg/dL (75-110); POTASSIUM 3.3 mmol/L (3.6-5.0); TOTAL PROTEIN 6.1 g/dL (6.3-8.2)
[2019-12-29] MEDS: ENOXAPARIN SODIUM INJ 40 MG/0.4 ML DISP.SYRIN SUBCUT SCH (09:43)
[2019-12-29] MEDS: INSULIN LISPRO 100 UNIT/ML 3 ML VIAL SUBCUT SCH ×2 (09:43→11:08)
[2019-12-29] MEDS: INSULIN GLARGINE,HUM.REC.ANLOG 1,000 UNIT/10 ML VIAL SUBCUT SCH (09:46)
[2019-12-29] MEDS: PANTOPRAZOLE SODIUM 40 MG TABLET.DR PO SCH (09:48)
[2019-12-29] MEDS ORDERED: POTASSIUM CHLORIDE 20 MEQ PACKET PO SCH (10:00)
--- NOTE | 2019-12-29 10:07 | PDOC PROGRESS REPORT ---
Subjective Date:: 12/29/19 Subjective:: 54 year old male, past medical history of uncontrolled diabetes poorly compliant with medication, multiple admissions due to DKA last episode December 17, frequent admissions to the ICU due to this same problem DKA. He was sent to the ED when his sister noted that his blood sugar at home was 451. When I talked to him in the ED he was yelling and very frustrated. He said that he was started of giving himself insulin. He refuses to answer when I asked him if he has been compliant with his insulin. Blood glucose in the ED noted to be 622, anion gap of 29, potassium of 3.4. Patient was started on an insulin drip and was given 2 bolus of normal saline by the emergency room department and hospitalist service was called for further evaluation and management. D2 Hospital stay 12/26/19. Patient was seen and examined at bedside. HE was awake in bed eating. He went back to DKA and insulin drip had to be restarted for a few hours. He was started on his long acting, with meals plus sliding scale. AG again closed adn he was transitioned to subcu insulin. He had an epis ode of hypoglycemia 34 despite eating his dinner and he was given IV glucagon. BG increased to 109.D5W restarted. 12/27/[id number]-rrwj-old male with history of uncontrolled diabetes mellitus noncompliant with medications admitted with a DKA. Doing better. Comfortable in the chair communicating well. Denies any problems. 12/28/2019-no acute events in the last 24 hours. Comfortably in the chair communicating well. Latest blood sugar is 101. To hold Humalog dose with meals. Serum potassium is low 2.9 to provide p.o. potassium. 12/29/2019-no acute events in the last 24 hours. Latest blood sugar is 200. Patient expressing desire to stay another night. Potassium is 3.3 patient is getting daily potassium supplementations. Reason For Visit: DKA (DIABETIC KETOACIDOSIS) Physical Exam Vital Signs: Temp Pulse Resp BP Pulse Ox 97.6 F 84 16 145/99 H 100 12/29/19 08:07 12/29/19 08:07 12/29/19 08:07 12/29/19 08:07 12/29/19 08:07 Intake & Output 12/28/19 12/29/19 12/30/19 06:59 06:59 06:59 Intake Total 1172 1472 Balance 1172 1472 Weight 50.5 kg 50.5 kg General appearance: PRESENT: no acute distress, cooperative Eye exam: PRESENT: PERRLA Mouth exam: PRESENT: moist, tongue midline Teeth exam: PRESENT: poor dentation Neck exam: ABSENT: carotid bruit, JVD, lymphadenopathy, thyromegaly Respiratory exam: PRESENT: clear to auscultation baldemar. ABSENT: rales, rhonchi, wheezes Cardiovascular exam: PRESENT: RRR. ABSENT: diastolic murmur, rubs, systolic murmur GI/Abdominal exam: PRESENT: normal bowel sounds, soft. ABSENT: distended, guarding, mass, organolmegaly, rebound, tenderness Rectal exam: PRESENT: deferred Extremities exam: PRESENT: full ROM. ABSENT: calf tenderness, clubbing, pedal edema Neurological exam: PRESENT: alert, awake, oriented to person, oriented to place, oriented to time, oriented to situation, CN II-XII grossly intact. ABSENT: motor sensory deficit Psychiatric exam: PRESENT: appropriate affect, normal mood. ABSENT: homicidal ideation, suicidal ideation Results Laboratory Results: 12/28/19 05:23 12/29/19 06:07 12/29/19 06:07 Sodium 133.8 L Potassium 3.3 L Chloride 94 L Carbon Dioxide 31 H Anion Gap 9 BUN 15 Creatinine 0.76 Est GFR ( Amer) > 60 Glucose 155 H Calcium 9.3 Total Bilirubin 0.3 AST 307 H Alkaline Phosphatase 144 H Total Protein 6.1 L Albumin 3.3 L 12/25/19 11:16 Creatine Kinase 42 L Impressions: Chest X-Ray 12/25/19 11:09 IMPRESSION: 1. No significant interval changes since the prior study dated 12/17/2019 and 10/26/2019. No acute findings. Assessment and Plan - Diagnosis (1) DKA (diabetic ketoacidoses) Qualifiers: Diabetes mellitus type: type 1 Diabetes mellitus complication detail: without coma Qualified Code(s): E10.10 - Type 1 diabetes mellitus with ketoacidosis without coma Is this a current diagnosis for this admission?: Yes Plan: -RESOLVED - Multiple admissions for DKA secondary to noncompliance - Positive ketones, anion gap of 29, pH of 7.19, glucose of 622 -AG had closed -Given bicarbonate due to decreased pH -We will continue IV fluids -transitioned to lantus, with meals insulin and SSI -Replete potassium as needed 12/27/2019-to continue to supplement potassium. Latest blood sugar is 178. Continue the present management. 12/28/2019-serum potassium is 2.9 today. To give 40 mg of p.o. potassium. His blood sugar is 101. To continue Lantus, to hold the Humalog with meals. 12/29/2019-latest blood sugar is 200. We will continue the present management at this time. (2) Metabolic acidosis due to diabetes mellitus Is this a current diagnosis for this admission?: Yes Plan: - RESOLVED -Anion gap 29 decreased to 13 -Secondary to DKA -On IV fluids and insulin transitioned to subcu 12/27/19-plan is to discontinue IV fluids from today. (3) CHF (congestive heart failure) Qualifiers: Heart failure type: unspecified Heart failure chronicity: unspecified Qualified Code(s): I50.9 - Heart failure, unspecified Is this a current diagnosis for this admission?: Yes Plan: -systolic heart failure not decompensated - We will resume carvedilol, aspirin, lisinopril. -Does not appear decompensated or fluid overloaded (4) Medically noncompliant Is this a current diagnosis for this admission?: Yes Plan: - evaluated by psych service last october 2019 - no depression as per note (5) Diabetes mellitus Qualifiers: Diabetes mellitus type: type 2 Diabetes mellitus terminal system operator insulin use: with terminal system operator use Diabetes mellitus complication status: with hyperglycemia Qualified Code(s): E11.65 - Type 2 diabetes mellitus with hyperglycemia; Z79.4 - long-term (current) use of insulin Is this a current diagnosis for this admission?: No Plan: - BG labile - on Lantus, with meals insulin and sliding scale - He is very non compliant with his insulin at home despite repeated ICU admissions - Accucheck - hypoglycemia protocol - Time Anticipated Discharge Disposition: Home, Self Care Anticipated Discharge Timeframe: within 24 hours
[2019-12-29 12:25] VITALS: BP 154/99
--- NOTE | 2019-12-29 15:20 | PDOC DISCHARGE SUMMARY ---
Impression - Admit/DC Date/PCP Admission Date/Primary Care Provider: 12/25/19 14:46 ERNST POTTER MD Discharge Date: 12/29/19 - Discharge Diagnosis (1) DKA (diabetic ketoacidoses) Is this a current diagnosis for this admission?: Yes (2) Metabolic acidosis due to diabetes mellitus Is this a current diagnosis for this admission?: Yes (3) CHF (congestive heart failure) Is this a current diagnosis for this admission?: Yes (4) Medically noncompliant Is this a current diagnosis for this admission?: Yes (5) Diabetes mellitus Is this a current diagnosis for this admission?: No - Assessment Summary: (1) DKA (diabetic ketoacidoses) Qualifiers: Diabetes mellitus type: type 1 Diabetes mellitus complication detail: without coma Qualified Code(s): E10.10 - Type 1 diabetes mellitus with ketoacidosis without coma Is this a current diagnosis for this admission?: Yes Plan: -RESOLVED - Multiple admissions for DKA secondary to noncompliance - Positive ketones, anion gap of 29, pH of 7.19, glucose of 622 -AG had closed -Given bicarbonate due to decreased pH -We will continue IV fluids -transitioned to lantus, with meals insulin and SSI -Replete potassium as needed 12/27/2019-to continue to supplement potassium. Latest blood sugar is 178. Continue the present management. 12/28/2019-serum potassium is 2.9 today. To give 40 mg of p.o. potassium. His blood sugar is 101. To continue Lantus, to hold the Humalog with meals. 12/29/2019-latest blood sugar is 200. We will continue the present management at this time. 12/29/2019-patient agreed to go home today. Was advised to continue present medications at this time. (2) Metabolic acidosis due to diabetes mellitus Is this a current diagnosis for this admission?: Yes Plan: - RESOLVED -Anion gap 29 decreased to 13 -Secondary to DKA -On IV fluids and insulin transitioned to subcu 12/27/19-plan is to discontinue IV fluids from today. (3) CHF (congestive heart failure) Qualifiers: Heart failure type: unspecified Heart failure chronicity: unspecified Qualified Code(s): I50.9 - Heart failure, unspecified Is this a current diagnosis for this admission?: Yes Plan: -systolic heart failure not decompensated - We will resume carvedilol, aspirin, lisinopril. -Does not appear decompensated or fluid overloaded (4) Medically noncompliant Is this a current diagnosis for this admission?: Yes Plan: - evaluated by psych service last october 2019 - no depression as per note (5) Diabetes mellitus Qualifiers: Diabetes mellitus type: type 2 Diabetes mellitus penitentiary insulin use: with penitentiary use Diabetes mellitus complication status: with hyperglycemia Qualified Code(s): E11.65 - Type 2 diabetes mellitus with hyperglycemia; Z79.4 - FDC (current) use of insulin Is this a current diagnosis for this admission?: No Plan: - BG labile - on Lantus, with meals insulin and sliding scale - He is very non compliant with his insulin at home despite repeated ICU admissions - Accucheck - hypoglycemia protocol - Additional Information Discharge Diet: Diabetic Discharge Activity: Activity As Tolerated Referrals: ERNST POTTER MD [Primary Care Provider] - Follow up as needed Home Medications: Amlodipine Besylate [Norvasc 10 mg Tablet] 10 mg PO QHS #30 tablet 12/20/19 Insulin Glargine,Hum.rec.anlog [Lantus Insulin 100 Unit/mL Insulin Pen] 20 unit SUBCUT Q12 #1 unit 12/20/19 Insulin Lispro [Humalog Kwikpen U-100] 15 units SQ PC 12/25/19 Lisinopril 20 mg PO DAILY 12/25/19 Pantoprazole Sodium [Protonix [address] Tablet] 40 mg PO BID 12/25/19 History of Present Illiness History of Present Illness: AMPARO PHAN is a 54 year old male 54 year old male, past medical history of uncontrolled diabetes poorly compliant with medication, multiple admissions due to DKA last episode December 17, frequent admissions to the ICU due to this same problem DKA. He was sent to the ED when his sister noted that his blood sugar at home was 451. When I talked to him in the ED he was yelling and very frustrated. He said that he was started of giving himself insulin. He refuses to answer when I asked him if he has been compliant with his insulin. Blood glucose in the ED noted to be 622, anion gap of 29, potassium of 3.4. Patient was started on an insulin drip and was given 2 bolus of normal saline by the emergency room department and hospitalist service was called for further evaluation and management. Hospital Course Hospital Course: 54 year old male, past medical history of uncontrolled diabetes poorly compliant with medication, multiple admissions due to DKA last episode December 17, frequent admissions to the ICU due to this same problem DKA. He was sent to the ED when his sister noted that his blood sugar at home was 451. When I talked to him in the ED he was yelling and very frustrated. He said that he was started of giving himself insulin. He refuses to answer when I asked him if he has been compliant with his insulin. Blood glucose in the ED noted to be 622, anion gap of 29, potassium of 3.4. Patient was started on an insulin drip and was given 2 bolus of normal saline by the emergency room department and hospitalist service was called for further evaluation and management. D2 Hospital stay 12/26/19. Patient was seen and examined at bedside. HE was awake in bed eating. He went back to DKA and insulin drip had to be restarted for a few hours. He was started on his long acting, with meals plus sliding scale. AG again closed adn he was transitioned to subcu insulin. He had an episode of hypoglycemia 34 despite eating his dinner and he was given IV glucagon. BG increased to 109.D5W restarted. 12/27/[id number]-iwwz-old male with history of uncontrolled diabetes mellitus noncompliant with medications admitted with a DKA. Doing better. Comfortable in the chair communicating well. Denies any problems. 12/28/2019-no acute events in the last 24 hours. Comfortably in the chair communicating well. Latest blood sugar is 101. To hold Humalog dose with meals. Serum potassium is low 2.9 to provide p.o. potassium. 12/29/2019-no acute events in the last 24 hours. Latest blood sugar is 200. Patient expressing desire to stay another night. Potassium is 3.3 patient is getting daily potassium supplementations. 12/29/2019-patient agreed to go home today. He agreed to be compliant with medications and follow-up with PCP next week. Physical Exam Vital Signs: Temp Pulse Resp BP Pulse Ox 98.4 F 87 16 154/99 H 100 12/29/19 12:00 12/29/19 14:00 12/29/19 12:00 12/29/19 12:00 12/29/19 12:00 Intake & Output 12/28/19 12/29/19 12/30/19 06:59 06:59 06:59 Intake Total 1172 1472 Balance 1172 1472 Weight 50.5 kg 50.5 kg 50.5 kg General appearance: PRESENT: no acute distress, thin Head exam: PRESENT: atraumatic Eye exam: PRESENT: PERRLA Mouth exam: PRESENT: moist, tongue midline Teeth exam: PRESENT: poor dentation Neck exam: ABSENT: carotid bruit, JVD, lymphadenopathy, thyromegaly Respiratory exam: PRESENT: decreased breath sounds Cardiovascular exam: PRESENT: RRR. ABSENT: diastolic murmur, rubs, systolic murmur GI/Abdominal exam: PRESENT: normal bowel sounds, soft. ABSENT: distended, guarding, mass, organolmegaly, rebound, tenderness Rectal exam: PRESENT: deferred Extremities exam: PRESENT: full ROM. ABSENT: calf tenderness, clubbing, pedal edema Neurological exam: PRESENT: alert, awake, oriented to person, oriented to place, oriented to time, oriented to situation, CN II-XII grossly intact. ABSENT: motor sensory deficit Psychiatric exam: PRESENT: appropriate affect, normal mood. ABSENT: homicidal ideation, suicidal ideation Results Laboratory Results: WBC 2.9 10^3/uL (4.0-10.5) L 12/28/19 05:23 RBC 3.21 10^6/uL (4.35-5.55) L 12/28/19 05:23 Hgb 9.5 g/dL (13.5-17.0) L 12/28/19 05:23 Hct 28.0 % (37.9-51.0) L 12/28/19 05:23 MCV 87 fl (80-97) 12/28/19 05:23 MCH 29.7 pg (27.0-33.4) 12/28/19 05:23 MCHC 34.0 g/dL (32.0-36.0) 12/28/19 05:23 RDW 16.1 % (11.5-14.0) H 12/28/19 05:23 Plt Count 279 10^3/uL (150-450) 12/28/19 05:23 Lymph % (Auto) 31.4 % (13-45) 12/28/19 05:23 Tucker % (Auto) 13.2 % (3-13) H 12/28/19 05:23 Eos % (Auto) 1.0 % (0-6) 12/28/19 05:23 Baso % (Auto) 1.2 % (0-2) 12/28/19 05:23 Absolute Neuts (auto) 1.5 10^3/uL (1.7-8.2) L 12/28/19 05:23 Absolute Lymphs (auto) 0.9 10^3/uL (0.5-4.7) 12/28/19 05:23 Absolute Monos (auto) 0.4 10^3/uL (0.1-1.4) 12/28/19 05:23 Absolute Eos (auto) 0.0 10^3/uL (0.0-0.6) 12/28/19 05:23 Absolute Basos (auto) 0.0 10^3/uL (0.0-0.2) 12/28/19 05:23 Seg Neutrophils % 53.2 % (42-78) 12/28/19 05:23 Platelet Comment ADEQUATE 12/27/19 05:31 Poikilocytosis SLIGHT 12/27/19 05:31 Anisocytosis 1+ 12/27/19 05:31 Spherocytes SLIGHT 12/27/19 05:31 VBG pH 7.31 (7.30-7.42) 12/25/19 12:41 VBG pCO2 35.7 mmHg (35-63) 12/25/19 12:41 VBG HCO3 17.7 mmol/L (20-32) L 12/25/19 12:41 VBG Base Excess -7.8 mmol/L 12/25/19 12:41 Sodium 133.8 mmol/L (137-145) L 12/29/19 06:07 Potassium 3.3 mmol/L (3.6-5.0) L 12/29/19 06:07 Chloride 94 mmol/L (98-107) L 12/29/19 06:07 Carbon Dioxide 31 mmol/L (22-30) H 12/29/19 06:07 Anion Gap 9 (5-19) 12/29/19 06:07 BUN 15 mg/dL (7-20) 12/29/19 06:07 Creatinine 0.76 mg/dL (0.52-1.25) 12/29/19 06:07 Est GFR ( Amer) > 60 (>60) 12/29/19 06:07 Est GFR (MDRD) Non-Af > 60 (>60) 12/29/19 06:07 Glucose 155 mg/dL (75-110) H 12/29/19 06:07 POC Glucose 403 mg/dL (70-110) H* 12/29/19 10:28 Lactic Acid 5.2 mmol/L (0.7-2.1) H 12/25/19 11:16 Calcium 9.3 mg/dL (8.4-10.2) 12/29/19 06:07 Magnesium 1.7 mg/dL (1.6-2.3) 12/28/19 05:23 Total Bilirubin 0.3 mg/dL (0.2-1.3) 12/29/19 06:07 Direct Bilirubin 0.1 mg/dL (0.0-0.4) 12/29/19 06:07 Neonat Total Bilirubin Not Reportable 12/29/19 06:07 Neonat Direct Bilirubin Not Reportable 12/29/19 06:07 Neonat Indirect Bili Not Reportable 12/29/19 06:07 AST 307 U/L (17-59) H 12/29/19 06:07 ALT 143 U/L (<50) H 12/29/19 06:07 Alkaline Phosphatase 144 U/L (38-126) H 12/29/19 06:07 Creatine Kinase 42 U/L (55-170) L 12/25/19 11:16 Total Protein 6.1 g/dL (6.3-8.2) L 12/29/19 06:07 Albumin 3.3 g/dL (3.5-5.0) L 12/29/19 06:07 Beta-Hydroxybutyrate 29 mg/dL (.) H 12/25/19 16:06 Urine Color YELLOW 12/25/19 16:06 Urine Appearance SLIGHTLY-CLOUDY 12/25/19 16:06 Urine pH 5.0 (5.0-9.0) 12/25/19 16:06 Ur Specific [place] 1.018 12/25/19 16:06 Urine Protein 30 mg/dL (NEGATIVE) H 12/25/19 16:06 Urine Glucose (UA) >=500 mg/dL (NEGATIVE) H 12/25/19 16:06 Urine Ketones 20 mg/dL (NEGATIVE) H 12/25/19 16:06 Urine Blood NEGATIVE (NEGATIVE) 12/25/19 16:06 Urine Nitrite NEGATIVE (NEGATIVE) 12/25/19 16:06 Urine Bilirubin NEGATIVE (NEGATIVE) 12/25/19 16:06 Urine Urobilinogen NEGATIVE mg/dL (<2.0) 12/25/19 16:06 Ur Leukocyte Esterase NEGATIVE (NEGATIVE) 12/25/19 16:06 Urine WBC (Auto) 2 /HPF 12/25/19 16:06 Urine RBC (Auto) 1 /HPF 12/25/19 16:06 U Hyaline Cast (Auto) 7 /LPF 12/25/19 16:06 Squamous Epi Cells Auto <1 /HPF 12/25/19 16:06 Urine Mucus (Auto) RARE /LPF 12/25/19 16:06 Urine Ascorbic Acid NEGATIVE (NEGATIVE) 12/25/19 16:06 Serum Alcohol < 10 mg/dL (NONE DETECTED) 12/25/19 11:16 Impressions: Chest X-Ray 12/25/19 11:09 IMPRESSION: 1. No significant interval changes since the prior study dated 12/17/2019 and 10/26/2019. No acute findings. Plan Time Spent: Greater than 30 Minutes Stroke Is this a Stroke Patient?: No Acute Heart Failure Is this a Heart Failure Patient?: No
== END 2019-12-29 16:50 | disposition home or self-care (01) | DRG 638 ==
LOC: ER 10:09 → EH 14:46 → 5TH 12-26 14:23 → 4S 12-26 15:43
PROVIDERS: ADMIT Internal Medicine; ATTEND Internal Medicine
DX: E10.10 Type 1 diabetes mellitus with ketoacidosis without coma (principal); I50.20 Unspecified systolic (congestive) heart failure; F17.200 Nicotine dependence, unspecified, uncomplicated; I11.0 Hypertensive heart disease with heart failure; Z83.3 Family history of diabetes mellitus; Z82.49 Family history of ischemic heart disease and other diseases of the circulatory system; Z86.73 Personal history of transient ischemic attack (TIA), and cerebral infarction without residual deficits; Z79.899 Other long term (current) drug therapy; Z91.19 Patient's noncompliance with other medical treatment and regimen; Z79.4 Long term (current) use of insulin
CPT/HCPCS: 36415; 71045; 80053; 80307; 81001; 82010; 82550; 82803; 82962; 83605; 83735; 85025; 87070; 90471; 93005; 93010; 96361; 96365; 96375; 99285; G0008; J1650; J1815; J2405; J2765; J3480; J3490; J7030; J7060

== ENCOUNTER 2020-01-03 10:09 | Inpatient (IN) | payer MEDICAID ==
[2020-01-03] MEDS ORDERED: NORMAL SALINE 1000 ML 1,000 ML IV ONE (10:42)
[2020-01-03] MEDS ORDERED: ONDANSETRON HCL INJ/PF 4 MG/2 ML SDV IV ONE (10:43)
[2020-01-03 11:30] LABS: ABSOLUTE BASOPHILS # (AUTO) 0.1 10^3/uL (0.0-0.2); ABSOLUTE LYMPHOCYTES (AUTO) 0.8 10^3/uL (0.5-4.7); ABSOLUTE MONOCYTES (AUTO) 0.7 10^3/uL (0.1-1.4); ABSOLUTE NEUT (AUTO) 4.6 10^3/uL (1.7-8.2); EOSINOPHILS % (AUTO) 0.1 % (0-6); HEMATOCRIT 32.4 % (37.9-51.0); HEMOGLOBIN 10.5 g/dL (13.5-17.0); LYMPHOCYTES % (AUTO) 12.6 % (13-45); MEAN CORPUSCULAR HEMOGLOBIN 30.3 pg (27.0-33.4); MEAN CORPUSCULAR HGB CONC 32.3 g/dL (32.0-36.0); MONOCYTES % (AUTO) 11.3 % (3-13); PLATELET COUNT 340 10^3/uL (150-450); RED BLOOD COUNT 3.45 10^6/uL (4.35-5.55); RED CELL DISTRIBUTION WIDTH 16.9 % (11.5-14.0); TOTAL CELLS COUNTED % (AUTO) 100 %; WHITE BLOOD COUNT 6.1 10^3/uL (4.0-10.5)
[2020-01-03 11:48] LABS: ALBUMIN 4.4 g/dL (3.5-5.0); ALKALINE PHOSPHATASE 180 U/L (38-126); ASPARTATE AMINO TRANSFERASE 48 U/L (17-59); BILIRUBIN,DIRECT 0.3 mg/dL (0.0-0.4); BILIRUBIN,TOTAL 0.4 mg/dL (0.2-1.3); BLOOD UREA NITROGEN 32 mg/dL (7-20); CALCIUM 10.2 mg/dL (8.4-10.2); POTASSIUM 3.4 mmol/L (3.6-5.0); TOTAL PROTEIN 7.8 g/dL (6.3-8.2)
[2020-01-03 11:54] LABS: CARBON DIOXIDE 13 mmol/L (22-30); CHLORIDE 97 mmol/L (98-107)
[2020-01-03 11:59] LABS: GLUCOSE 541 mg/dL (75-110)
[2020-01-03 12:03] LABS: MEAN CORPUSCULAR VOLUME 94 fl (80-97)
[2020-01-03] MEDS ORDERED: RINGERS SOLUTION,LACTATED 1,000 ML IV ONE (12:04)
[2020-01-03] MEDS ORDERED: INSULIN REG, HUMAN 100 UNIT/ML 3 ML VIAL (PYX) IV ONE (12:13)
[2020-01-03 12:23] LABS: VENOUS BLOOD BASE EXCESS -12.1 mmol/L; VENOUS BLOOD HCO3 14.2 mmol/L (20-32); VENOUS BLOOD PCO2 34.1 mmHg (35-63); VENOUS BLOOD PH 7.24 (7.30-7.42)
[2020-01-03 13:07] LABS: ANION GAP 29 (5-19)
[2020-01-03] MEDS: POTASSI CL 20 MEQ/50 ML RIDER 20 MEQ/50 ML RTUPB IV SCH ×2 (13:07→14:56)
[2020-01-03] MEDS ORDERED: DEXTROSE 50%-WATER 25 GM/50 ML DISP.SYRIN IV PRN ×2 (14:12)
[2020-01-03] MEDS ORDERED: DEXTROSE 40% GEL 15 GM TUBE PO PRN ×2 (14:12)
[2020-01-03] MEDS ORDERED: GLUCAGON,HUMAN RECOMB 1 MG INJ IM PRN (14:12)
[2020-01-03] MEDS ORDERED: NORMAL SALINE 100 ML with INSULIN REGULAR, HUMAN 100 UNIT IV PRN ×2 (14:12)
[2020-01-03] MEDS ORDERED: ACETAMINOPHEN 325 MG TABLET PO PRN (14:13)
[2020-01-03] MEDS ORDERED: OXYCODONE-ACETAMINOPHEN 5-325 MG TABLET PO PRN (14:13)
[2020-01-03] MEDS ORDERED: PROMETHAZINE HCL INJ 25 MG/1 ML VIAL IV PRN (14:13)
[2020-01-03] MEDS ORDERED: TEMAZEPAM 15 MG CAPSULE PO PRN (14:13)
[2020-01-03] MEDS ORDERED: NORMAL SALINE 1000 ML 1,000 ML IV PRN (14:13)
[2020-01-03] MEDS ORDERED: IPRATROPIUM/ALBUTEROL 0.5-2.5 MG/3 ML AMPUL NEB PRN (14:13)
[2020-01-03] MEDS ORDERED: ONDANSETRON HCL INJ/PF 4 MG/2 ML SDV IV PRN (14:13)
[2020-01-03] MEDS ORDERED: METOPROLOL TARTRATE PF/INJ 5 MG/5 ML SDV IV PRN (14:20)
[2020-01-03] MEDS ORDERED: NICOTINE 14 MG/24 HR PATCH.TD24 TD ONE (14:45)
--- NOTE | 2020-01-03 14:48 | ER Document Report ---
Entered by CHLOE STILL SCRIBE 01/03/20 1211 Acting as scribe for:ELLIOT SOLANO MD ED Blood Sugar Problem - General Chief Complaint: High Blood Sugar Stated Complaint: POSSIBLE HIGH BLOOD SUGAR Time Seen by Provider: 01/03/20 12:02 Mode of Arrival: Ambulatory Information source: Patient Notes: This 54 year old male patient with a history of type 2 diabetes mellitus and multiple admissions for DKA secondary to noncompliance presents to the ED today with complaints of elevated blood sugar readings. Patient was just discharged x5 days ago after being admitted on 12/24 for DKA; he was also admitted here from 12/16 to 12/19 for the same problem. Mother at bedside reports that when she checked his blood sugar prior to arrival, it would not register on the monitor. When asked if the patient is taking his insulin, mother states that he "seems to be," but she is not sure because she is not the one administering it. Patient reports associated nausea, vomiting, and urinary frequency, but denies cough or abdominal pain. TRAVEL OUTSIDE OF THE [place] IN LAST 30 DAYS: No - Related Data Allergies/Adverse Reactions: No Known Allergies Allergy (Verified 06/08/17 20:19) Past Medical History - General Information source: Patient, [facility] Records - Social History Smoking Status: Current Some Day Smoker Smoking Education Provided: No Drug Abuse: None Lives with: Family Family History: Reviewed & Not Pertinent, DM, Hypertension - Past Medical History Cardiac Medical History: Reports: Hx Congestive Heart Failure - Diastolic, Hx Hypertension Pulmonary Medical History: Reports: Hx COPD Neurological Medical History: Reports: Hx Cerebrovascular Accident Endocrine Medical History: Reports: Hx Diabetes Mellitus Type 1, Hx Diabetes Mellitus Type 2 Renal/ Medical History: Reports: Hx Renal Insufficiency GI Medical History: Musculoskeletal Medical History: Past Surgical History: Reports: Other - Removal of part of a lung as a child due to abscess. - Immunizations Immunizations up to date: Yes Hx Diphtheria, Pertussis, Tetanus Vaccination: Yes Review of Systems - Review of Systems Constitutional: See HPI, Other - Elevated BGL readings EENT: No symptoms reported Cardiovascular: No symptoms reported Respiratory: See HPI. denies: Cough Gastrointestinal: See HPI, Nausea, Vomiting. denies: Abdominal pain Genitourinary: See HPI, Frequency Male Genitourinary: No symptoms reported Musculoskeletal: No symptoms reported Skin: No symptoms reported Hematologic/Lymphatic: No symptoms reported Neurological/Psychological: No symptoms reported -: Yes All other systems reviewed and negative Physical Exam - Vital signs Vitals: Resp Pulse Ox 16 100 01/03/20 11:00 01/03/20 11:00 - General General appearance: Other - Appears cachectic, extremely strong ketone odor - HEENT Head: Normocephalic, Atraumatic Eyes: Normal Pupils: PERRL Mucous membranes: Dry Neck: Normal, Supple - Nontender - Respiratory Respiratory status: Tachypnea Chest status: Nontender Breath sounds: Normal Chest palpation: Normal - Cardiovascular Rhythm: Regular Heart sounds: Normal auscultation Murmur: No Friction rub: No Gallop: None auscultated - Abdominal Inspection: Normal Distension: No distension Bowel sounds: Normal Tenderness: Nontender - Abdomen soft Organomegaly: No organomegaly - Back Back: Normal, Nontender - Extremities General upper extremity: Normal inspection General lower extremity: Normal inspection. No: Edema - Neurological Neuro grossly intact: Yes - Psychological Associated symptoms: Normal affect, Normal mood - Skin Skin Temperature: Warm Skin Moisture: Dry Skin Color: Normal Course - Vital Signs Vital signs: Temp Pulse Resp BP Pulse Ox 98.0 F 72 18 120/80 100 01/04/20 13:22 01/04/20 14:00 01/04/20 13:22 01/04/20 13:22 01/04/20 13:22 - Laboratory Result Diagrams: 01/04/20 06:14 01/04/20 09:40 Laboratory results interpreted by me: 01/03/20 01/03/20 01/03/20 11:10 11:10 11:10 RBC 3.45 L Hgb 10.5 L Hct 32.4 L RDW 16.9 H Lymph % (Auto) 12.6 L VBG pH 7.24 L VBG pCO2 34.1 L VBG HCO3 14.2 L Potassium 3.4 L Chloride 97 L Carbon Dioxide 13 L Anion Gap 29 H BUN 32 H Creatinine 1.44 H Est GFR (MDRD) Non-Af 51 L Glucose 541 H* POC Glucose Magnesium ALT 97 H Alkaline Phosphatase 180 H Creatine Kinase 01/03/20 01/03/20 01/03/20 11:10 12:47 13:43 RBC Hgb Hct RDW Lymph % (Auto) VBG pH VBG pCO2 VBG HCO3 Potassium Chloride Carbon Dioxide Anion Gap BUN Creatinine Est GFR (MDRD) Non-Af Glucose POC Glucose 319 H 248 H Magnesium 2.5 H ALT Alkaline Phosphatase Creatine Kinase 48 L - EKG Interpretation by Me EKG shows normal: Sinus rhythm, [place], Intervals, QRS Complexes, ST-T Waves Rate: Normal - 82 Rhythm: NSR Voltage: Consistent with LVH When compared to previous EKG there are: No significant change Critical Care Note - Critical Care Note Total time excluding time spent on procedures (mins): 40 Comments: At least 40 minutes spent evaluating the patient, reviewing lab work, starting medications and making medication adjustments based on lab reporting. Time spent discussing the patient with the hospitalist service to get him admitted to the hospital. Discharge - Discharge Clinical Impression: Hyperglycemia due to type 1 diabetes mellitus, Dehydration DKA (diabetic ketoacidoses) Qualifiers: Diabetes mellitus type: type 1 Diabetes mellitus complication detail: without coma Qualified Code(s): E10.10 - Type 1 diabetes mellitus with ketoacidosis without coma Condition: Stable Disposition: ADMITTED INPATIENT Admitting Provider: [employer] (Hospitalist) Unit Admitted: IMCU I personally performed the services described in the documentation, reviewed and edited the documentation which was dictated to the scribe in my presence, and it accurately records my words and actions.
[2020-01-03 15:38] LABS: APPEARANCE,URINE CLEAR; BILIRUBIN,URINE NEGATIVE (NEGATIVE); COLOR,URINE YELLOW; GLUCOSE, URINE >=500 mg/dL (NEGATIVE); KETONES,URINE 80 mg/dL (NEGATIVE); LEUKOCYTE ESTERASE,URINE NEGATIVE (NEGATIVE); NITRITE,URINE NEGATIVE (NEGATIVE); PROTEIN,URINE 30 mg/dL (NEGATIVE); UROBILINOGEN,URINE NEGATIVE mg/dL (<2.0)
--- NOTE | 2020-01-03 17:32 | PDOC H&P ---
History of Present Illness Admission Date/PCP: 01/03/20 14:32 ERNST POTTER MD History of Present Illness: AMPARO PHAN is a 54 year old male past medical history of type 1 diabetes uncontrolled, frequent DKA's, hypertension, history of medical noncompliance, presenting to ED complaining of nausea, vomiting, urinary frequency and abdominal pain. Patient just discharged from [facility] for DKA on 12/25/2019. Patient denies any fever, chills, chest pain, shortness of breath, constipation or any urinary symptoms. On my encounter patient does not seem very pleasant and does not provide much history. On admission noted to have a blood glucose level of 541, anion gap of 29, and potassium of 3.4. Patient was started on insulin drip and supplemental potassium and hospitalist consulted for admission. Past Medical History Cardiac Medical History: Reports: Congestive Heart Failure - Diastolic, Hypertension Denies: Myocardial Infarction Pulmonary Medical History: Reports: Chronic Obstructive Pulmonary Disease (COPD) Denies: Asthma Neurological Medical History: Denies: Seizures Endocrine Medical History: Reports: Diabetes Mellitus Type 1, Diabetes Mellitus Type 2 Denies: Hyperthyroidism, Hypothyroidism GI Medical History: Denies: Cirrhosis, Hepatitis Musculoskeltal Medical History: Denies: Arthritis, Gout Skin Medical History: Denies: Eczema, Psoriasis Psychiatric Medical History: Denies: Depression Hematology: Denies: Anemia, Bleeding Tendencies Past Surgical History Past Surgical History: Reports: Other - Removal of part of a lung as a child due to abscess. Social History Lives with: Family Smoking Status: Current Some Day Smoker Frequency of Alcohol Use: None Hx Recreational Drug Use: No Drugs: None Hx Prescription Drug Abuse: No Family History Family History: Reviewed & Not Pertinent, DM, Hypertension Parental Family History Reviewed: Yes Children Family History Reviewed: Yes Sibling(s) Family History Reviewed.: Yes Medication/Allergy Home Medications: Amlodipine Besylate [Norvasc 10 mg Tablet] 10 mg PO QHS #30 tablet 12/20/19 Insulin Glargine,Hum.rec.anlog [Lantus Insulin 100 Unit/mL Insulin Pen] 20 unit SUBCUT Q12 #1 unit 12/20/19 Insulin Lispro [Humalog Kwikpen U-100] 15 units SQ PC 12/25/19 Lisinopril 20 mg PO DAILY 12/25/19 Pantoprazole Sodium [Protonix [address] Tablet] 40 mg PO BID 12/25/19 Allergies/Adverse Reactions: No Known Allergies Allergy (Verified 06/08/17 20:19) Review of Systems Review of Systems: as per hpi Physical Exam Vital Signs: Temp Pulse Resp BP Pulse Ox 98.4 F 17 173/95 H 98 01/03/20 14:00 01/03/20 16:01 01/03/20 16:01 01/03/20 16:01 Intake & Output 01/02/20 01/03/20 01/04/20 06:59 06:59 06:59 Intake Total 2045 Balance 2045 Weight 44.7 kg General appearance: PRESENT: no acute distress, thin Head exam: PRESENT: atraumatic, normocephalic Respiratory exam: PRESENT: clear to auscultation baldemar. ABSENT: rales, rhonchi, wheezes Cardiovascular exam: PRESENT: RRR. ABSENT: diastolic murmur, rubs, systolic murmur GI/Abdominal exam: PRESENT: normal bowel sounds, soft. ABSENT: distended, guarding, mass, organolmegaly, rebound, tenderness Neurological exam: PRESENT: alert, awake, oriented to person, oriented to place, oriented to time, oriented to situation, CN II-XII grossly intact. ABSENT: motor sensory deficit Results Laboratory Results: 01/03/20 11:10 01/03/20 11:10 01/03/20 01/03/20 01/03/20 11:10 11:10 11:10 WBC 6.1 RBC 3.45 L Hgb 10.5 L Hct 32.4 L MCV 94 D MCH 30.3 MCHC 32.3 RDW 16.9 H Plt Count 340 Seg Neutrophils % 75.0 VBG pH 7.24 L VBG pCO2 34.1 L VBG HCO3 14.2 L VBG Base Excess -12.1 Sodium 139.3 Potassium 3.4 L Chloride 97 L Carbon Dioxide 13 L Anion Gap 29 H BUN 32 H Creatinine 1.44 H Est GFR ( Amer) > 60 Glucose 541 H* Calcium 10.2 Magnesium Total Bilirubin 0.4 AST 48 Alkaline Phosphatase 180 H Total Protein 7.8 Albumin 4.4 Urine Color Urine Appearance Urine pH Ur Specific [place] Urine Protein Urine Glucose (UA) Urine Ketones Urine Blood Urine Nitrite Ur Leukocyte Esterase Urine WBC (Auto) Urine RBC (Auto) 01/03/20 01/03/20 11:10 15:08 WBC RBC Hgb Hct MCV MCH MCHC RDW Plt Count Seg Neutrophils % VBG pH VBG pCO2 VBG HCO3 VBG Base Excess Sodium Potassium Chloride Carbon Dioxide Anion Gap BUN Creatinine Est GFR ( Amer) Glucose Calcium Magnesium 2.5 H Total Bilirubin AST Alkaline Phosphatase Total Protein Albumin Urine Color YELLOW Urine Appearance CLEAR Urine pH 5.0 Ur Specific [place] 1.020 Urine Protein 30 H Urine Glucose (UA) >=500 H Urine Ketones 80 H Urine Blood NEGATIVE Urine Nitrite NEGATIVE Ur Leukocyte Esterase NEGATIVE Urine WBC (Auto) 2 Urine RBC (Auto) 0 01/03/20 01/03/20 11:10 11:10 Creatine Kinase 48 L Troponin I < 0.012 Assessment and Plan - Diagnosis (1) DKA (diabetic ketoacidoses) Qualifiers: Diabetes mellitus type: type 1 Diabetes mellitus complication detail: without coma Qualified Code(s): E10.10 - Type 1 diabetes mellitus with ketoacidosis without coma Is this a current diagnosis for this admission?: Yes Plan: Due to noncompliance. Presented with hyperglycemia, hypokalemia, metabolic acidosis. Admit to IMCU, insulin drip, every 6 BMP, monitor electrolytes and volume status and replace as needed, advance diet as tolerated, antiemetics, transition to subcutaneous insulin once anion gap closes. (2) Hypertension Qualifiers: Hypertension type: essential hypertension Qualified Code(s): I10 - Essential (primary) hypertension Is this a current diagnosis for this admission?: Yes Plan: Appears dehydrated. Uncontrolled. Resume home meds. Adjust meds needed. Outpatient PCP follow-up. (3) Type 1 diabetes mellitus Is this a current diagnosis for this admission?: Yes Plan: History of noncompliance. Presenting with recurrent DKA. Plan as per #1. (4) Nonadherence to medication Is this a current diagnosis for this admission?: Yes Plan: Patient extensively counseled on medication compliance. Patient is open to the idea of home health for medication administration. Will consult case management if that would be a possibility. (5) Tobacco abuse Is this a current diagnosis for this admission?: Yes Plan: Counseled on quitting. NicoDerm patch provided. - Time Time Spent with patient: 35 or more minutes Medications reviewed and adjusted accordingly: Yes Anticipated Discharge Disposition: Home with Home Health Anticipated Discharge Timeframe: within 48 hours
[2020-01-03] MEDS: HYDRALAZINE HCL INJ/PF 20 MG/1 ML SDV IV PRN (18:31)
[2020-01-03 19:05] LABS: ANION GAP 12 (5-19); BLOOD UREA NITROGEN 19 mg/dL (7-20); CALCIUM 8.9 mg/dL (8.4-10.2); CHLORIDE 104 mmol/L (98-107); GLUCOSE 165 mg/dL (75-110); POTASSIUM 3.4 mmol/L (3.6-5.0)
[2020-01-03 19:09] LABS: CARBON DIOXIDE 23 mmol/L (22-30)
--- NOTE | 2020-01-03 19:35 | EKG REPORT ---
SEVERITY:- ABNORMAL ECG - SINUS RHYTHM LVH WITH SECONDARY REPOLARIZATION ABNORMALITY ANTERIOR Q WAVES, POSSIBLY DUE TO LVH : Confirmed by: Brendan Cummings MD 03-Jan-2020 19:34:36
[2020-01-03] MEDS ORDERED: POTASSIUM CHLORIDE 10 MEQ TABLET.ER PO ONE (19:46)
[2020-01-03] MEDS: INSULIN LISPRO 100 UNIT/ML 3 ML VIAL SUBCUT SCH ×2 (19:54→21:52)
[2020-01-03] MEDS: NORMAL SALINE 1000 ML 1,000 ML IV PRN (21:01)
[2020-01-03] MEDS ORDERED: AMLODIPINE BESYLATE 10 MG TABLET PO SCH (22:00)
[2020-01-03] MEDS ORDERED: INSULIN GLARGINE,HUM.REC.ANLOG 1,000 UNIT/10 ML VIAL (PYX) SUBCUT ONE (22:25)
[2020-01-03] MEDS: INSULIN GLARGINE,HUM.REC.ANLOG 1,000 UNIT/10 ML VIAL SUBCUT SCH (22:27)
[2020-01-03] MEDS: HEPARIN SOD (PORCINE) 5,000 UNIT/ML 1 ML VIAL SUBCUT SCH (22:28)
[2020-01-03] MEDS: FAMOTIDINE 20 MG TABLET PO SCH (22:28)
[2020-01-04] MEDS: NORMAL SALINE 1000 ML 1,000 ML IV PRN (05:20)
[2020-01-04] MEDS: HEPARIN SOD (PORCINE) 5,000 UNIT/ML 1 ML VIAL SUBCUT SCH ×2 (05:20→14:16)
[2020-01-04 06:58] LABS: HEMATOCRIT 28.8 % (37.9-51.0); HEMOGLOBIN 9.7 g/dL (13.5-17.0); MEAN CORPUSCULAR HEMOGLOBIN 29.5 pg (27.0-33.4); MEAN CORPUSCULAR HGB CONC 33.6 g/dL (32.0-36.0); PLATELET COUNT 285 10^3/uL (150-450); RED BLOOD COUNT 3.28 10^6/uL (4.35-5.55); WHITE BLOOD COUNT 5.2 10^3/uL (4.0-10.5)
[2020-01-04 07:01] LABS: MEAN CORPUSCULAR VOLUME 88 fl (80-97)
[2020-01-04 07:18] LABS: ANION GAP 8 (5-19); BLOOD UREA NITROGEN 10 mg/dL (7-20); CALCIUM 8.4 mg/dL (8.4-10.2); CARBON DIOXIDE 23 mmol/L (22-30); CHLORIDE 103 mmol/L (98-107); GLUCOSE 127 mg/dL (75-110); POTASSIUM 3.5 mmol/L (3.6-5.0)
[2020-01-04] MEDS ORDERED: POTASSI CL 20 MEQ/50 ML RIDER 20 MEQ/50 ML RTUPB IV ONE (07:36)
[2020-01-04] MEDS ORDERED: MAGNESIUM SULFATE/D5W 1 GM/100 ML RTUPB IV ONE (07:36)
[2020-01-04] MEDS: INSULIN LISPRO 100 UNIT/ML 3 ML VIAL SUBCUT SCH ×5 (08:04→16:27)
[2020-01-04] MEDS ORDERED: DOCUSATE SODIUM 100 MG/10 ML UDC PO SCH (10:00)
[2020-01-04] MEDS ORDERED: LISINOPRIL 10 MG TABLET PO SCH (10:00)
[2020-01-04 10:30] LABS: POTASSIUM 3.8 mmol/L (3.6-5.0)
[2020-01-04] MEDS: FAMOTIDINE 20 MG TABLET PO SCH (10:57)
[2020-01-04] MEDS: INSULIN GLARGINE,HUM.REC.ANLOG 1,000 UNIT/10 ML VIAL SUBCUT SCH (10:58)
[2020-01-04] MEDS: HYDRALAZINE HCL INJ/PF 20 MG/1 ML SDV IV PRN (16:27)
[2020-01-04 16:58] VITALS: BP 195/93
[2020-01-05] MEDS ORDERED: INSULIN GLARGINE,HUM.REC.ANLOG 1,000 UNIT/10 ML VIAL SUBCUT SCH (10:00)
--- NOTE | 2020-01-05 18:16 | PDOC DISCHARGE SUMMARY ---
Impression - Admit/DC Date/PCP Admission Date/Primary Care Provider: 01/03/20 14:32 ERNST POTTER MD Discharge Date: 01/04/20 - Discharge Diagnosis (1) DKA (diabetic ketoacidoses) Is this a current diagnosis for this admission?: Yes (2) Hypertension Is this a current diagnosis for this admission?: Yes (3) Type 1 diabetes mellitus Is this a current diagnosis for this admission?: Yes (4) Nonadherence to medication Is this a current diagnosis for this admission?: Yes (5) Tobacco abuse Is this a current diagnosis for this admission?: Yes - Additional Information Discharge Diet: Diabetic Discharge Activity: Activity As Tolerated Referrals: ERNST POTTER MD [Primary Care Provider] - Follow up as needed Home Medications: Amlodipine Besylate [Norvasc 10 mg Tablet] 10 mg PO QHS #30 tablet 12/20/19 Insulin Lispro [Humalog Kwikpen U-100] 15 units SQ PC 12/25/19 Lisinopril 20 mg PO DAILY 12/25/19 Pantoprazole Sodium [Protonix [address] Tablet] 40 mg PO BID 12/25/19 Insulin Glargine,Hum.rec.anlog [Lantus Insulin 100 Unit/1 ml 10 ml] 20 unit SUBCUT DAILY 30 Days #1 unit 01/04/20 History of Present Illiness History of Present Illness: AMPARO PHAN is a 54 year old male past medical history of type 1 diabetes uncontrolled, frequent DKA's, hypertension, history of medical noncompliance, presenting to ED complaining of nausea, vomiting, urinary frequency and abdominal pain. Patient just discharged from [facility] for DKA on 12/25/2019. Patient denies any fever, chills, chest pain, shortness of breath, constipation or any urinary symptoms. On my encounter patient does not seem very pleasant and does not provide much history. On admission noted to have a blood glucose level of 541, anion gap of 29, and potassium of 3.4. Patient was started on insulin drip and supplemental potassium and hospitalist consulted for admission. Hospital Course Hospital Course: (1) DKA (diabetic ketoacidoses) Due to noncompliance. Presented with hyperglycemia, hypokalemia, metabolic acidosis. Was admitted to [facility], insulin drip, every 6 BMP, monitor electrolytes and volume status and replace as needed, advance diet as tolerated, antiemetics, transition to subcutaneous insulin once anion gap closes. Transition back to subcutaneous insulin once anion gap closed. (2) Hypertension Euvolemic. History of uncontrolled hypertension. SBP WNL at the time of discharge. Advised to follow-up with PCP and resume home meds upon discharge. (3) Type 1 diabetes mellitus History of noncompliance. Presenting with recurrent DKA. Plan as per #1. (4) Nonadherence to medication Patient extensively counseled on medication compliance. Patient was discharged with home health for medication system and administration. (5) Tobacco abuse Counseled on quitting. NicoDerm patch provided. Physical Exam Vital Signs: Temp Pulse Resp BP Pulse Ox 98.0 F 72 18 195/93 H 100 01/04/20 16:56 01/04/20 16:56 01/04/20 16:56 01/04/20 16:56 01/04/20 16:56 Intake & Output 01/04/20 01/05/20 01/06/20 06:59 06:59 06:59 Intake Total 3944 2078 Output Total 975 Balance 2969 2078 Weight 52.1 kg General appearance: PRESENT: no acute distress, well-developed, well-nourished Head exam: PRESENT: atraumatic, normocephalic Respiratory exam: PRESENT: clear to auscultation baldemar. ABSENT: rales, rhonchi, wheezes GI/Abdominal exam: PRESENT: normal bowel sounds, soft. ABSENT: distended, guarding, mass, organolmegaly, rebound, tenderness Neurological exam: PRESENT: alert, awake, oriented to person, oriented to place, oriented to time, CN II-XII grossly intact. ABSENT: motor sensory deficit Results Laboratory Results: WBC 5.2 10^3/uL (4.0-10.5) 01/04/20 06:14 RBC 3.28 10^6/uL (4.35-5.55) L 01/04/20 06:14 Hgb 9.7 g/dL (13.5-17.0) L 01/04/20 06:14 Hct 28.8 % (37.9-51.0) L 01/04/20 06:14 MCV 88 fl (80-97) D 01/04/20 06:14 MCH 29.5 pg (27.0-33.4) 01/04/20 06:14 MCHC 33.6 g/dL (32.0-36.0) 01/04/20 06:14 RDW 17.0 % (11.5-14.0) H 01/04/20 06:14 Plt Count 285 10^3/uL (150-450) 01/04/20 06:14 Lymph % (Auto) 12.6 % (13-45) L 01/03/20 11:10 [place] % (Auto) 11.3 % (3-13) 01/03/20 11:10 Eos % (Auto) 0.1 % (0-6) 01/03/20 11:10 Baso % (Auto) 1.0 % (0-2) 01/03/20 11:10 Absolute Neuts (auto) 4.6 10^3/uL (1.7-8.2) 01/03/20 11:10 Absolute Lymphs (auto) 0.8 10^3/uL (0.5-4.7) 01/03/20 11:10 Absolute Monos (auto) 0.7 10^3/uL (0.1-1.4) 01/03/20 11:10 Absolute Eos (auto) 0.0 10^3/uL (0.0-0.6) 01/03/20 11:10 Absolute Basos (auto) 0.1 10^3/uL (0.0-0.2) 01/03/20 11:10 Seg Neutrophils % 75.0 % (42-78) 01/03/20 11:10 VBG pH 7.24 (7.30-7.42) L 01/03/20 11:10 VBG pCO2 34.1 mmHg (35-63) L 01/03/20 11:10 VBG HCO3 14.2 mmol/L (20-32) L 01/03/20 11:10 VBG Base Excess -12.1 mmol/L 01/03/20 11:10 Sodium 133.5 mmol/L (137-145) L 01/04/20 06:14 Potassium 3.8 mmol/L (3.6-5.0) 01/04/20 09:40 Chloride 103 mmol/L (98-107) 01/04/20 06:14 Carbon Dioxide 23 mmol/L (22-30) 01/04/20 06:14 Anion Gap 8 (5-19) 01/04/20 06:14 BUN 10 mg/dL (7-20) 01/04/20 06:14 Creatinine 0.68 mg/dL (0.52-1.25) 01/04/20 06:14 Est GFR ( Amer) > 60 (>60) 01/04/20 06:14 Est GFR (MDRD) Non-Af > 60 (>60) 01/04/20 06:14 Glucose 127 mg/dL (75-110) H 01/04/20 06:14 POC Glucose 206 mg/dL (70-110) H 01/04/20 16:18 Calcium 8.4 mg/dL (8.4-10.2) 01/04/20 06:14 Magnesium 2.0 mg/dL (1.6-2.3) 01/04/20 09:40 Total Bilirubin 0.4 mg/dL (0.2-1.3) 01/03/20 11:10 Direct Bilirubin 0.3 mg/dL (0.0-0.4) 01/03/20 11:10 Neonat Total Bilirubin Not Reportable 01/03/20 11:10 Neonat Direct Bilirubin Not Reportable 01/03/20 11:10 Neonat Indirect Bili Not Reportable 01/03/20 11:10 AST 48 U/L (17-59) 01/03/20 11:10 ALT 97 U/L (<50) H 01/03/20 11:10 Alkaline Phosphatase 180 U/L (38-126) H 01/03/20 11:10 Creatine Kinase 48 U/L (55-170) L 01/03/20 11:10 Troponin I < 0.012 ng/mL 01/03/20 11:10 Total Protein 7.8 g/dL (6.3-8.2) 01/03/20 11:10 Albumin 4.4 g/dL (3.5-5.0) 01/03/20 11:10 Urine Color YELLOW 01/03/20 15:08 Urine Appearance CLEAR 01/03/20 15:08 Urine pH 5.0 (5.0-9.0) 01/03/20 15:08 Ur Specific [place] 1.020 01/03/20 15:08 Urine Protein 30 mg/dL (NEGATIVE) H 01/03/20 15:08 Urine Glucose (UA) >=500 mg/dL (NEGATIVE) H 01/03/20 15:08 Urine Ketones 80 mg/dL (NEGATIVE) H 01/03/20 15:08 Urine Blood NEGATIVE (NEGATIVE) 01/03/20 15:08 Urine Nitrite NEGATIVE (NEGATIVE) 01/03/20 15:08 Urine Bilirubin NEGATIVE (NEGATIVE) 01/03/20 15:08 Urine Urobilinogen NEGATIVE mg/dL (<2.0) 01/03/20 15:08 Ur Leukocyte Esterase NEGATIVE (NEGATIVE) 01/03/20 15:08 Urine WBC (Auto) 2 /HPF 01/03/20 15:08 Urine RBC (Auto) 0 /HPF 01/03/20 15:08 U Hyaline Cast (Auto) 2 /LPF 01/03/20 15:08 Urine Mucus (Auto) RARE /LPF 01/03/20 15:08 Urine Ascorbic Acid NEGATIVE (NEGATIVE) 01/03/20 15:08 01/03/20 11:10 Troponin I < 0.012 Stroke Is this a Stroke Patient?: No Acute Heart Failure Is this a Heart Failure Patient?: No
== END 2020-01-04 17:54 | disposition home or self-care (01) | DRG 638 ==
LOC: ER 10:09 → EH 14:32 → 3S 16:51
PROVIDERS: ADMIT Internal Medicine; ATTEND Internal Medicine
DX: E10.10 Type 1 diabetes mellitus with ketoacidosis without coma (principal); I50.32 Chronic diastolic (congestive) heart failure; E87.6 Hypokalemia; F17.210 Nicotine dependence, cigarettes, uncomplicated; I11.0 Hypertensive heart disease with heart failure; E86.0 Dehydration; Z91.14 Patient's other noncompliance with medication regimen; Z79.4 Long term (current) use of insulin; Z79.899 Other long term (current) drug therapy; Z90.2 Acquired absence of lung [part of]
CPT/HCPCS: 36415; 80048; 80053; 81001; 82550; 82803; 82962; 83735; 84132; 84484; 85025; 85027; 93005; 93010; 96361; 96365; 96366; 96375; 99285; J0360; J1644; J1815; J2405; J3475; J3480; J3490; J7030; J7050; J7120

== ENCOUNTER 2020-01-25 09:39 | Inpatient (IN) | payer MEDICAID ==
[2020-01-25] MEDS ORDERED: NORMAL SALINE 1000 ML 1,000 ML IV ONE (10:35)
--- NOTE | 2020-01-25 10:43 | ER Document Report ---
ED Medical Screen (RME) - General Chief Complaint: High Blood Sugar Stated Complaint: BLOOD SUGAR PROBLEM Time Seen by Provider: 01/25/20 10:35 Primary Care Provider: ERNST POTTER MD [Primary Care Provider] - Follow up as needed TRAVEL OUTSIDE OF THE [place] IN LAST 30 DAYS: No - HPI Notes: 01/25/20 10:41 54-year-old male who is a noncompliant type I diabetic well-known to this facility presents to ED for evaluation of increased nausea, vomiting, and muscle aches. Patient states that he has not been compliant with his insulin. Patient's mother presents with him reports that he has been taking his short acting insulin sporadically. Reports blood sugars have been reading high for over 1 week. Notes that he has not had a normal reading in quite some time. Denies chest pain or shortness of breath. Denies Covid exposure. Denies other complaints. - Related Data Allergies/Adverse Reactions: No Known Allergies Allergy (Verified 01/25/20 10:23) Home Medications: novolog before meals Past Medical History - Social History Chew tobacco use (# tins/day): No Frequency of alcohol use: None Drug Abuse: None - Past Medical History Cardiac Medical History: Reports: Hx Congestive Heart Failure - Diastolic, Hx Hypertension Denies: Hx Heart Attack Pulmonary Medical History: Reports: Hx COPD Denies: Hx Asthma Neurological Medical History: Reports: Hx Cerebrovascular Accident. Denies: Hx Seizures Endocrine Medical History: Reports: Hx Diabetes Mellitus Type 1, Hx Diabetes Mellitus Type 2. Denies: Hx Hyperthyroidism, Hx Hypothyroidism Renal/ Medical History: Reports: Hx Renal Insufficiency GI Medical History: Denies: Hx Cirrhosis, Hx Hepatitis Musculoskeltal Medical History: Denies Hx Arthritis, Denies Hx Gout Skin Medical History: Denies Hx Eczema, Denies Hx Psoriasis Psychiatric Medical History: Denies: Hx Depression Infectious Medical History: Denies: Hx Hepatitis Past Surgical History: Reports: Other - Removal of part of a lung as a child due to abscess. - Immunizations Immunizations up to date: Yes Hx Diphtheria, Pertussis, Tetanus Vaccination: Yes Physical Exam - Vital signs Vitals: Temp Pulse Resp BP Pulse Ox 98.7 F 102 H 22 H 102/59 L 102 H 01/25/20 09:46 01/25/20 09:46 01/25/20 09:46 01/25/20 09:46 01/25/20 09:46 General: Alert and oriented x3. Actively vomiting while in room. Heart: Regular rate and rhythm. S1,S2. No murmurs, rubs, or gallops. Lungs: Clear to ausculation bilaterally. No wheezes, rhonchi, rales. Equal chest expansion. No retractions. Abdomen: Diffusely tender throughout but soft. No hepatosplenomegaly. No masses. No CVA tenderness bilaterally. Neuro: GCS 15. Moving all extremities without discomfort. Extremities: No calf tenderness or edema. No cyanosis or clubbing. Radial and pedal pulses 2+ bilaterally. Brisk capillary refill. Psych: Mood and affect appropriate. Course - Vital Signs Vital signs: Temp Pulse Resp BP Pulse Ox 98.7 F 102 H 22 H 102/59 L 102 H 01/25/20 09:46 01/25/20 09:46 01/25/20 09:46 01/25/20 09:46 01/25/20 09:46 Doctor's Discharge - Discharge Referrals: ERNST POTTER MD [Primary Care Provider] - Follow up as needed
--- NOTE | 2020-01-25 11:21 | RADIOLOGY REPORT (SQ) ---
EXAM DESCRIPTION: CHEST SINGLE VIEW IMAGES COMPLETED DATE/TIME: 01/25/2020 10:52 am REASON FOR STUDY: DKA COMPARISON: 12/25/2019 EXAM PARAMETERS: NUMBER OF VIEWS: One view. TECHNIQUE: Single frontal radiographic view of the chest acquired. RADIATION DOSE: NA LIMITATIONS: None. FINDINGS: LUNGS AND PLEURA: Chronic elevation right diaphragm. No opacities, masses or pneumothorax . No pleural effusion. MEDIASTINUM AND HILAR STRUCTURES: No masses. Contour normal. HEART AND VASCULAR STRUCTURES: Heart normal in size. Normal vasculature. BONES: No acute findings. HARDWARE: None in the chest. OTHER: No other significant finding. IMPRESSION: NO ACUTE RADIOGRAPHIC FINDING IN THE CHEST. TECHNICAL DOCUMENTATION: JOB ID: [id number] 2010 [employer]- All Rights Reserved Reading location - IP/workstation name: [email or web address]
[2020-01-25 12:03] LABS: VENOUS BLOOD BASE EXCESS -26.4 mmol/L; VENOUS BLOOD HCO3 5.1 mmol/L (20-32)
[2020-01-25 12:13] LABS: VENOUS BLOOD PH 6.93 (7.30-7.42)
[2020-01-25 12:16] LABS: HEMOGLOBIN 11.2 g/dL (13.5-17.0); MEAN CORPUSCULAR HGB CONC 28.7 g/dL (32.0-36.0); PLATELET COUNT 310 10^3/uL (150-450); RED BLOOD COUNT 3.61 10^6/uL (4.35-5.55); RED CELL DISTRIBUTION WIDTH 17.6 % (11.5-14.0)
[2020-01-25] MEDS ORDERED: CALCIUM GLUCONATE 1000 MG/10 ML INJ IV ONE ×2 (12:20→12:23)
[2020-01-25] MEDS ORDERED: INSULIN REG, HUMAN 100 UNIT/ML 3 ML VIAL (PYX) ONE ×2 (12:20→12:46)
[2020-01-25 12:26] LABS: ALBUMIN 4.2 g/dL (3.5-5.0); ALKALINE PHOSPHATASE 196 U/L (38-126); ASPARTATE AMINO TRANSFERASE 29 U/L (17-59); BILIRUBIN,DIRECT 0.3 mg/dL (0.0-0.4); BILIRUBIN,TOTAL 0.5 mg/dL (0.2-1.3); BLOOD UREA NITROGEN 31 mg/dL (7-20); CHLORIDE 93 mmol/L (98-107); CREATINE KINASE 28 U/L (55-170); POTASSIUM 5.6 mmol/L (3.6-5.0); TOTAL PROTEIN 7.3 g/dL (6.3-8.2)
[2020-01-25 12:28] LABS: APPEARANCE,URINE CLEAR; BILIRUBIN,URINE NEGATIVE (NEGATIVE); COLOR,URINE YELLOW; GLUCOSE, URINE >=500 mg/dL (NEGATIVE); KETONES,URINE 80 mg/dL (NEGATIVE); LEUKOCYTE ESTERASE,URINE NEGATIVE (NEGATIVE); NITRITE,URINE NEGATIVE (NEGATIVE); PROTEIN,URINE 30 mg/dL (NEGATIVE); UROBILINOGEN,URINE NEGATIVE mg/dL (<2.0)
[2020-01-25] MEDS ORDERED: INSULIN REG, HUMAN 100 UNIT/ML 3 ML VIAL (PYX) IV ONE ×3 (12:29→17:30)
[2020-01-25] MEDS ORDERED: NORMAL SALINE 1000 ML 1,000 ML IV PRN ×3 (12:29→20:49)
[2020-01-25] MEDS ORDERED: PANTOPRAZOLE SODIUM 40 MG VIAL IV ONE (12:34)
[2020-01-25 12:35] LABS: CREATINE KINASE MB 1.34 ng/mL (<4.55)
[2020-01-25 12:36] LABS: TROPONIN I < 0.012 ng/mL
[2020-01-25 12:37] LABS: MEAN CORPUSCULAR VOLUME 108 fl (80-97)
[2020-01-25 12:40] LABS: CARBON DIOXIDE < 5 mmol/L (22-30); GLUCOSE 1004 mg/dL (75-110)
[2020-01-25 12:43] LABS: HEMATOCRIT 39.1 % (37.9-51.0)
[2020-01-25] MEDS ORDERED: ONDANSETRON HCL INJ/PF 4 MG/2 ML SDV IV ONE (12:46)
[2020-01-25 12:49] LABS: ABSOLUTE LYMPHOCYTES# (MANUAL) 1.1 10^3/uL (0.5-4.7); ABSOLUTE MONOCYTES # (MANUAL) 0.1 10^3/uL (0.1-1.4); ANISOCYTOSIS 1+; BAND NEUTROPHILS % (MANUAL) 2 % (3-5); BASOPHILS % (MANUAL) 1 % (0-2); EOSINOPHILS % (MANUAL) 0 % (0-6); LYMPHOCYTES % (MANUAL) 10 % (13-45); MONOCYTES % (MANUAL) 1 % (3-13); PLATELET COMMENT ADEQUATE; SEGMENTED NEUTROPHILS % (MAN) 86 % (42-78); TOTAL CELLS COUNTED 100
[2020-01-25 12:50] LABS: PLATELET LARGE PRESENT; TOXIC VACUOLATION PRESENT
[2020-01-25 12:51] LABS: POLYCHROMASIA SLIGHT
--- NOTE | 2020-01-25 12:54 | ER Document Report ---
ED General - General Chief Complaint: High Blood Sugar Stated Complaint: BLOOD SUGAR PROBLEM Time Seen by Provider: 01/25/20 10:35 Primary Care Provider: ERNST POTTER MD [Primary Care Provider] - Follow up as needed TRAVEL OUTSIDE OF THE [place] IN LAST 30 DAYS: No - HPI Notes: Patient is a 54-year-old male who presents emergency department for evaluation. He is a noncompliant diabetic. According to his mother he has not been compliant with his insulin. She states he has only been taking his short acting insulin intermittently. His blood sugars have been high all week. He started with some nausea and feeling poorly over the last 48 hours. The patient himself is a poor historian. He will not give me any further information, states he just does not feel well. - Related Data Allergies/Adverse Reactions: No Known Allergies Allergy (Verified 01/25/20 10:23) Home Medications: novolog before meals Past Medical History - General Information source: Patient, Parent - Social History Smoking Status: Current Every Day Smoker Chew tobacco use (# tins/day): No Frequency of alcohol use: None Drug Abuse: None Family History: Reviewed & Not Pertinent, DM, Hypertension Patient has homicidal ideation: No - Past Medical History Cardiac Medical History: Reports: Hx Congestive Heart Failure - Diastolic, Hx Hypertension Denies: Hx Heart Attack Pulmonary Medical History: Reports: Hx COPD Denies: Hx Asthma Neurological Medical History: Reports: Hx Cerebrovascular Accident. Denies: Hx Seizures Endocrine Medical History: Reports: Hx Diabetes Mellitus Type 1. Denies: Hx Hyperthyroidism, Hx Hypothyroidism Renal/ Medical History: Reports: Hx Renal Insufficiency GI Medical History: Denies: Hx Cirrhosis, Hx Hepatitis Musculoskeletal Medical History: Denies Hx Arthritis, Denies Hx Gout Skin Medical History: Denies Hx Eczema, Denies Hx Psoriasis Psychiatric Medical History: Denies: Hx Depression Infectious Medical History: Denies: Hx Hepatitis Past Surgical History: Reports: Other - Removal of part of a lung as a child due to abscess. - Immunizations Immunizations up to date: Yes Hx Diphtheria, Pertussis, Tetanus Vaccination: Yes Review of Systems - Review of Systems Constitutional: See HPI EENT: No symptoms reported Cardiovascular: No symptoms reported Respiratory: No symptoms reported Gastrointestinal: See HPI Genitourinary: Frequency Musculoskeletal: No symptoms reported Skin: No symptoms reported Neurological/Psychological: No symptoms reported Physical Exam - Vital signs Vitals: Temp Pulse Resp BP Pulse Ox 98.7 F 102 H 22 H 102/59 L 102 H 01/25/20 09:46 01/25/20 09:46 01/25/20 09:46 01/25/20 09:46 01/25/20 09:46 - Notes Notes: This is a frail-appearing 54-year-old male, who appears his stated age, in a moderate amount of distress. Acute mild respirations noted. He is only intermittently answering my questions, seems annoyed at my exam. Vital signs reviewed, please refer to chart. Head is normocephalic, atraumatic. Pupils equal round, reactive to light. Neck is supple without meningismus. Heart is regular rate and rhythm. Lungs are clear to auscultation bilaterally. Abdomen is soft, nontender, normoactive bowel sounds throughout. Extremities without cyanosis, clubbing. Posterior calves are nontender. Peripheral pulses are equal. Skin is warm and dry. Patient is awake, alert, neurological exam is nonfocal. Course - Re-evaluation Re-evalutation: 01/25/20 12:53 Patient presents emergency department for evaluation. His findings are most consistent with DKA, labs were ordered accordingly. He was started on IV fluids. His initial EKG showed significantly peaked T waves. Given his history and my concern for hyperkalemia, despite not having a metabolic panel back, decision was made to administer calcium gluconate and 10 units of IV insulin. Patient tolerated this well. Throughout the course of his stay he was hydrated, he did have some emesis. He did at 1 point have a large episode of dark red emesis that was found to be Gastroccult positive. Protonix was ordered. I went back in and evaluated the patient. He continues to have a soft and nontender abdomen, denies any recent melena. His laboratory investigations are consistent with significant DKA, his venous pH is under 7, his bicarb is less than 5, his glucose is over thousand. He already received a 10 unit insulin push, he will be started on an insulin drip at 5 to 6 units an hour. Hydration will be continued. Will contact medicine for admission. 01/25/20 13:47 I spoke initially to Dr. Mcadams about this patient. He is concerned about his low bicarb as well as his hematemesis, believes he would be more appropriate ICU admission. I spoke with Dr. Payton, he will come down and evaluate the patient. 01/25/20 14:[address] Lowe, admitted to the ICU. Orders placed, awaiting bed placement. - Vital Signs Vital signs: Temp Pulse Resp BP Pulse Ox 98.7 F 102 H 21 H 136/93 H 100 01/25/20 09:46 01/25/20 09:46 01/25/20 12:01 01/25/20 12:01 01/25/20 12:01 - Laboratory Results Result Diagrams: 01/25/20 11:50 01/25/20 11:50 Laboratory Results Interpreted: 01/25/20 01/25/20 01/25/20 11:50 11:50 11:50 WBC 11.0 H RBC 3.61 L Hgb 11.2 L MCV 108 H D MCHC 28.7 L RDW 17.6 H Seg Neuts % (Manual) 86 H Band Neutrophils % 2 L Lymphocytes % (Manual) 10 L Monocytes % (Manual) 1 L Abs Neuts (Manual) 9.7 H VBG pH 6.93 L* VBG pCO2 25.0 L VBG HCO3 5.1 L Sodium 134.1 L Potassium 5.6 H Chloride 93 L Carbon Dioxide < 5 L* BUN 31 H Creatinine 1.68 H Est GFR ( Amer) 52 L Est GFR (MDRD) Non-Af 43 L Glucose 1004 H* Alkaline Phosphatase 196 H Creatine Kinase 28 L Urine Protein Urine Glucose (UA) Urine Ketones 01/25/20 12:07 WBC RBC Hgb MCV MCHC RDW Seg Neuts % (Manual) Band Neutrophils % Lymphocytes % (Manual) Monocytes % (Manual) Abs Neuts (Manual) VBG pH VBG pCO2 VBG HCO3 Sodium Potassium Chloride Carbon Dioxide BUN Creatinine Est GFR ( Amer) Est GFR (MDRD) Non-Af Glucose Alkaline Phosphatase Creatine Kinase Urine Protein 30 H Urine Glucose (UA) >=500 H Urine Ketones 80 H Critical Laboratory Results Reviewed: Yes Attending or Supervising Physician who Reviewed Labs: MERARI JAIMES - Radiology Results Critical Radiology Results Reviewed: No Critical Results - EKG Interpretation by Me Additional EKG results interpreted by me: 01/25/20 12:56 Sinus tachycardia with rate of 105 bpm. LVH with repolarization changes noted. Significantly peaked T waves concerning for hyperkalemia, new from prior study of 01/03/2020. Nonspecific ST changes noted. No acute ST elevation concerning for infarction. Critical Care Note - Critical Care Note Total time excluding time spent on procedures (mins): 45 Discharge - Discharge Clinical Impression: Hyperglycemia due to type 1 diabetes mellitus, Noncompliance, Hyperkalemia DKA (diabetic ketoacidoses) Qualifiers: Diabetes mellitus type: type 1 Diabetes mellitus complication detail: without coma Qualified Code(s): E10.10 - Type 1 diabetes mellitus with ketoacidosis without coma Condition: Stable Disposition: ADMITTED INPATIENT Admitting Provider: Fito (Erp Developer) Unit Admitted: ICU Referrals: ERNST POTTER MD [Primary Care Provider] - Follow up as needed
[2020-01-25] MEDS ORDERED: NORMAL SALINE 100 ML with INSULIN REGULAR, HUMAN 100 UNIT IV PRN ×4 (13:09→14:13)
[2020-01-25] MEDS ORDERED: GLUCAGON,HUMAN RECOMB 1 MG INJ IM PRN (14:13)
[2020-01-25] MEDS ORDERED: DEXTROSE 50%-WATER 25 GM/50 ML DISP.SYRIN IV PRN ×2 (14:13)
[2020-01-25] MEDS ORDERED: DEXTROSE 40% GEL 15 GM TUBE PO PRN ×2 (14:13)
[2020-01-25 15:08] LABS: URINE AMPHETAMINES SCREEN NEGATIVE; URINE BARBITURATES SCREEN NEGATIVE; URINE BENZODIAZEPINES SCREEN NEGATIVE; URINE COCAINE SCREEN NEGATIVE; URINE MARIJUANA (THC) SCREEN NEGATIVE; URINE METHADONE SCREEN NEGATIVE; URINE PHENCYCLIDINE SCREEN NEGATIVE
[2020-01-25 15:44] LABS: BLOOD UREA NITROGEN 29 mg/dL (7-20); CALCIUM 9.4 mg/dL (8.4-10.2)
[2020-01-25 15:49] LABS: CHLORIDE 104 mmol/L (98-107)
[2020-01-25 16:00] LABS: POTASSIUM 4.1 mmol/L (3.6-5.0)
[2020-01-25 16:05] LABS: ANION GAP 30 (5-19); CARBON DIOXIDE 5 mmol/L (22-30); GLUCOSE 808 mg/dL (75-110)
[2020-01-25] MEDS ORDERED: POTASSI CL 40 MEQ/NS 1L 1,000 ML IV PRN (16:51)
[2020-01-25] MEDS: PANTOPRAZOLE SODIUM 40 MG VIAL IV SCH ×2 (16:53→21:22)
[2020-01-25 19:08] LABS: BLOOD UREA NITROGEN 28 mg/dL (7-20); CALCIUM 9.1 mg/dL (8.4-10.2); CARBON DIOXIDE 11 mmol/L (22-30); CHLORIDE 110 mmol/L (98-107); POTASSIUM 3.6 mmol/L (3.6-5.0)
[2020-01-25 19:16] LABS: ANION GAP 20 (5-19)
[2020-01-25 19:22] LABS: GLUCOSE 437 mg/dL (75-110)
--- NOTE | 2020-01-25 19:34 | CRITICAL CARE ADMISSION REPORT ---
HPI Date:: 01/25/20 Time:: 14:02 Reason for ICU Reason:: Diabetic ketoacidosis Admission Date/Time & PCP: Admission Date/Time: Primary Care Provider: ERNST POTTER MD HPI: This 54-year-old male presented [facility] emergency department with complaints of nausea, vomiting and diarrhea. He is a noncompliant diabetic who is well-known to this service. He has had 5 admissions to the ICU for diabetic ketoacidosis during 2019. Review of the chart reveals that the patient's mother reported compliance with his insulin; however, he has only been taking his short acting insulin intermittently. His blood sugars have been high all week. At the time of clinical interview, the patient is awake, alert and oriented. He appears miserable. He is not cooperative with clinical exam or interview. He denies pain. He endorses nausea, vomiting and diarrhea. He denies shortness of breath. He is visibly tachypneic. His SPO2 is 100% on room air. Laboratory evaluation in the emergency department was compatible with diabetic ketoacidosis. History obtained from:: Review of medical chart, discussion with Dr. Bojorquez, patient - Diagnosis/Plan (1) DKA (diabetic ketoacidoses) Qualifiers: Diabetes mellitus type: type 1 Diabetes mellitus complication detail: without coma Qualified Code(s): E10.10 - Type 1 diabetes mellitus with ketoacidosis without coma Is this a current diagnosis for this admission?: Yes Plan: * Admit to ICU. * IV fluids. Start with normal saline at 250 mL/h. * Continue insulin infusion. Titrate based on Accu-Cheks. * Serial labs. (2) Hyperglycemia due to type 1 diabetes mellitus Is this a current diagnosis for this admission?: Yes (3) Hyperkalemia Is this a current diagnosis for this admission?: Yes Plan: * Monitor with serial labs. * Treated in ER with calcium gluconate. (4) ISELA (acute kidney injury) Is this a current diagnosis for this admission?: Yes Plan: * Monitor urine output. * Avoid nephrotoxic drugs. * Renal dosing of medications. (5) Noncompliance Is this a current diagnosis for this admission?: Yes Plan: * Consult case management/social work to assess for needs. (6) Abnormal liver function test Is this a current diagnosis for this admission?: Yes Plan: * Check lipase. * Monitor LFTs. * Urine drug screen. (7) Acute diarrhea Is this a current diagnosis for this admission?: Yes (8) Bloody emesis Qualifiers: Nausea presence: with nausea Qualified Code(s): K92.0 - Hematemesis Is this a current diagnosis for this admission?: Yes Plan: * Suspicious for upper GI bleed * Protonix 40 mg IV twice daily. Past Medical History Cardiac Medical History: Reports: Congestive Heart Failure - Diastolic, Hypertension Denies: Myocardial Infarction Pulmonary Medical History: Reports: Chronic Obstructive Pulmonary Disease (COPD) Denies: Asthma Neurological Medical History: Denies: Seizures Endocrine Medical History: Reports: Diabetes Mellitus Type 1, Diabetes Mellitus Type 2 Denies: Hyperthyroidism, Hypothyroidism GI Medical History: Denies: Cirrhosis, Hepatitis Musculoskeltal Medical History: Denies: Arthritis, Gout Skin Medical History: Denies: Eczema, Psoriasis Psychiatric Medical History: Denies: Depression Hematology: Denies: Anemia, Bleeding Tendencies Past Surgical History Past Surgical History: Reports: Other - Removal of part of a lung as a child due to abscess. Social/Family History - Social History Smoking Status: Current Every Day Smoker Frequency of Alcohol Use: None Hx Recreational Drug Use: No Drugs: Cocaine Hx Prescription Drug Abuse: No - Medication/Allergies Home Medications: Insulin Lispro [Humalog Kwikpen U-100] 12 units SQ PC 12/25/19 Allergies/Adverse Reactions: No Known Allergies Allergy (Verified 01/25/20 10:23) Review of Systems ROS unobtainable: Due to mental status Physical Exam Vital Signs: Temp Pulse Resp BP Pulse Ox 98.7 F 102 H 21 H 136/93 H 100 01/25/20 09:46 01/25/20 09:46 01/25/20 12:01 01/25/20 12:01 01/25/20 12:01 Intake & Output 01/24/20 01/25/20 01/26/20 06:59 06:59 06:59 Intake Total 1999 Balance 1999 Weight 52.1 kg Weight/Height Weight 52.1 kg Height 1.68 m General appearance: PRESENT: disheveled, mild distress, thin Head exam: PRESENT: atraumatic, normocephalic Eye exam: PRESENT: conjunctiva pink, EOMI, PERRLA. ABSENT: scleral icterus Mouth exam: PRESENT: dry mucosa, tongue midline Neck exam: ABSENT: carotid bruit, JVD, lymphadenopathy, thyromegaly Respiratory exam: PRESENT: clear to auscultation baldemar. ABSENT: rales, rhonchi, wheezes Cardiovascular exam: PRESENT: RRR. ABSENT: diastolic murmur, rubs, systolic murmur Pulses: PRESENT: normal dorsalis pedis pul GI/Abdominal exam: PRESENT: normal bowel sounds, soft. ABSENT: distended, guarding, mass, organolmegaly, rebound, tenderness Gentrourinary exam: PRESENT: indwelling catheter Extremities exam: PRESENT: full ROM. ABSENT: calf tenderness, clubbing, pedal edema Musculoskeletal exam: PRESENT: full ROM, normal inspection. ABSENT: deformity Neurological exam: PRESENT: alert, awake, reflexes normal, CN II-XII grossly i ntact. ABSENT: motor sensory deficit Psychiatric exam: PRESENT: agitated Focused psych exam: PRESENT: restlessness Laboratory/Radiographs Laboratory Results: 01/25/20 11:50 01/25/20 11:50 01/25/20 01/25/20 01/25/20 11:50 11:50 11:50 WBC 11.0 H RBC 3.61 L Hgb 11.2 L Hct 39.1 MCV 108 H D MCH 31.0 MCHC 28.7 L RDW 17.6 H Plt Count 310 Seg Neutrophils % Not Reportable VBG pH 6.93 L* VBG pCO2 25.0 L VBG HCO3 5.1 L VBG Base Excess -26.4 Sodium 134.1 L Potassium 5.6 H Chloride 93 L Carbon Dioxide < 5 L* Anion Gap Not Reportable BUN 31 H Creatinine 1.68 H Est GFR ( Amer) 52 L Glucose 1004 H* Calcium 10.0 Total Bilirubin 0.5 AST 29 Alkaline Phosphatase 196 H Total Protein 7.3 Albumin 4.2 Urine Color Urine Appearance Urine pH Ur Specific [place] Urine Protein Urine Glucose (UA) Urine Ketones Urine Blood Urine Nitrite Ur Leukocyte Esterase Urine WBC (Auto) Urine RBC (Auto) 01/25/20 12:07 WBC RBC Hgb Hct MCV MCH MCHC RDW Plt Count Seg Neutrophils % VBG pH VBG pCO2 VBG HCO3 VBG Base Excess Sodium Potassium Chloride Carbon Dioxide Anion Gap BUN Creatinine Est GFR ( Amer) Glucose Calcium Total Bilirubin AST Alkaline Phosphatase Total Protein Albumin Urine Color YELLOW Urine Appearance CLEAR Urine pH 5.0 Ur Specific [place] 1.020 Urine Protein 30 H Urine Glucose (UA) >=500 H Urine Ketones 80 H Urine Blood NEGATIVE Urine Nitrite NEGATIVE Ur Leukocyte Esterase NEGATIVE Urine WBC (Auto) 0 Urine RBC (Auto) 0 01/25/20 01/25/20 11:50 11:50 Creatine Kinase 28 L CK-MB (CK-2) 1.34 Troponin I < 0.012 Impressions: Chest X-Ray 01/25/20 10:36 IMPRESSION: NO ACUTE RADIOGRAPHIC FINDING IN THE CHEST. All labs, radiographs, diagnostic studies and EKGs were personally reviewed: Yes In addition, reports of radiographic and diagnostic studies were read: Yes Critical Time Critical Time (minutes): 45 -: The care of a critically ill patient is dynamic. This note represents a static moment in the admission process. Orders and treatments may be given simultane ously and urgently, and time is not patient service representative of the treatment process. This patient requires Critical Care secondary to life threatening organ or limb dysfunction. Without Critical Care services, the patient is at risk for increased mortality and morbidity.
[2020-01-25] MEDS: IPRATROPIUM/ALBUTEROL 0.5-2.5 MG/3 ML AMPUL NEB SCH (20:59)
[2020-01-25] MEDS: POTASSI CL 20 MEQ/50 ML RIDER 20 MEQ/50 ML RTUPB IV SCH ×2 (21:18→23:02)
--- NOTE | 2020-01-25 21:26 | EKG REPORT ---
SEVERITY:- ABNORMAL ECG - SINUS TACHYCARDIA LEFT VENTRICULAR HYPERTROPHY ANTERIOR Q WAVES, POSSIBLY DUE TO LVH TALL T, CONSIDER METABOLIC/ISCHEMIC ABNRM PROLONGED QT INTERVAL : Confirmed by: Dannielle Joshi MD 25-Jan-2020 21:25:59
[2020-01-25] MEDS ORDERED: LORAZEPAM INJ 2 MG/1 ML VIAL ONE (22:26)
[2020-01-25 22:38] LABS: ANION GAP 11 (5-19); BLOOD UREA NITROGEN 24 mg/dL (7-20); CALCIUM 9.3 mg/dL (8.4-10.2); CARBON DIOXIDE 18 mmol/L (22-30); CHLORIDE 113 mmol/L (98-107); GLUCOSE 136 mg/dL (75-110); POTASSIUM 3.3 mmol/L (3.6-5.0)
[2020-01-25] MEDS ORDERED: LORAZEPAM INJ 2 MG/1 ML VIAL IV ONE (22:45)
[2020-01-26] MEDS: IPRATROPIUM/ALBUTEROL 0.5-2.5 MG/3 ML AMPUL NEB SCH ×4 (02:14→20:17)
[2020-01-26 03:17] LABS: ANION GAP 8 (5-19); BLOOD UREA NITROGEN 19 mg/dL (7-20); CALCIUM 9.3 mg/dL (8.4-10.2); CARBON DIOXIDE 20 mmol/L (22-30); CHLORIDE 115 mmol/L (98-107); GLUCOSE 98 mg/dL (75-110); POTASSIUM 3.4 mmol/L (3.6-5.0)
[2020-01-26] MEDS ORDERED: DEXTROSE 50%-WATER 25 GM/50 ML DISP.SYRIN IV PRN ×2 (05:29)
[2020-01-26] MEDS ORDERED: DEXTROSE 40% GEL 15 GM TUBE PO PRN ×2 (05:29)
[2020-01-26] MEDS ORDERED: GLUCAGON,HUMAN RECOMB 1 MG INJ IM PRN (05:29)
[2020-01-26] MEDS: INSULIN REG, HUMAN 100 UNIT/ML 3 ML VIAL (PYX) SUBCUT SCH ×3 (06:52→22:18)
[2020-01-26 07:18] LABS: ANION GAP 11 (5-19); BLOOD UREA NITROGEN 18 mg/dL (7-20); CALCIUM 9.3 mg/dL (8.4-10.2); CARBON DIOXIDE 16 mmol/L (22-30); CHLORIDE 111 mmol/L (98-107); GLUCOSE 311 mg/dL (75-110); POTASSIUM 3.9 mmol/L (3.6-5.0)
[2020-01-26] MEDS ORDERED: DEXTROSE 5%-WATER 1000 ML 1,000 ML IV PRN (07:19)
[2020-01-26] MEDS ORDERED: NORMAL SALINE 1000 ML 1,000 ML IV PRN (07:19)
[2020-01-26] MEDS ORDERED: POTASSI CL 20 MEQ/NS 1L 1,000 ML IV PRN (08:44)
[2020-01-26] MEDS ORDERED: POTASSI CL 20 MEQ/NS 1L 1,000 ML IV ONE (08:48)
--- NOTE | 2020-01-26 08:53 | PDOC CRITICAL CARE PROG REPORT ---
General Date:: 01/26/20 ICU Day:: 2 Hospital Day:: 2 Resuscitation Status: Full Code Events in the past 12 to 24 Hours:: This 54-year-old male presented to [facility] emergency department on 01/25/2020 with complaints of nausea, vomiting and diarrhea. He is a well-known, noncompliant diabetic. Laboratory evaluation was compatible with diabetic ketoacidosis. 01/25: Insulin infusion has been turned off. Anion gap is closed. Patient did receive 8 units of insulin subcutaneously at 6 AM. Blood culture pending. Ur ine culture pending. Troponin was negative. Cantankerous, as usual. Reason for ICU Addmission:: Diabetic ketoacidosis - Medications: Medications reviewed and adjusted accordingly: Yes Physical Exam Vital Signs: Temp Pulse Resp BP Pulse Ox 97.6 F 92 15 161/72 H 100 01/26/20 03:32 01/26/20 02:14 01/26/20 06:00 01/26/20 05:41 01/26/20 06:00 Intake & Output 01/25/20 01/26/20 01/27/20 06:59 06:59 06:59 Intake Total 3253 Output Total 1800 Balance 1453 Weight 48.3 kg Weight/Height Weight 48.3 kg Height 1.68 m General appearance: PRESENT: no acute distress, well-developed, well-nourished Head exam: PRESENT: atraumatic, normocephalic Mouth exam: PRESENT: moist, tongue midline Neck exam: ABSENT: carotid bruit, JVD, lymphadenopathy, thyromegaly Respiratory exam: PRESENT: clear to auscultation baldemar. ABSENT: rales, rhonchi, wheezes Cardiovascular exam: PRESENT: RRR. ABSENT: diastolic murmur, rubs, systolic murmur Vascular exam: PRESENT: normal capillary refill GI/Abdominal exam: PRESENT: normal bowel sounds, soft. ABSENT: distended, guarding, mass, organolmegaly, rebound, tenderness Extremities exam: PRESENT: full ROM. ABSENT: calf tenderness, clubbing, pedal edema Musculoskeletal exam: PRESENT: normal inspection. ABSENT: deformity Neurological exam: PRESENT: alert, awake, oriented to person, oriented to place, oriented to time, oriented to situation, CN II-XII grossly intact. ABSENT: motor sensory deficit Psychiatric exam: PRESENT: agitated, anxious Focused psych exam: PRESENT: pressured speech Laboratory/Radiographs Laboratory Results: 01/25/20 11:50 01/26/20 06:50 01/25/20 01/25/20 01/25/20 11:50 11:50 11:50 WBC 11.0 H RBC 3.61 L Hgb 11.2 L Hct 39.1 MCV 108 H D MCH 31.0 MCHC 28.7 L RDW 17.6 H Plt Count 310 Seg Neutrophils % Not Reportable VBG pH 6.93 L* VBG pCO2 25.0 L VBG HCO3 5.1 L VBG Base Excess -26.4 Sodium 134.1 L Potassium 5.6 H Chloride 93 L Carbon Dioxide < 5 L* Anion Gap Not Reportable BUN 31 H Creatinine 1.68 H Est GFR ( Amer) 52 L Glucose 1004 H* Calcium 10.0 Magnesium Total Bilirubin 0.5 AST 29 Alkaline Phosphatase 196 H Total Protein 7.3 Albumin 4.2 Lipase Urine Color Urine Appearance Urine pH Ur Specific [place] Urine Protein Urine Glucose (UA) Urine Ketones Urine Blood Urine Nitrite Ur Leukocyte Esterase Urine WBC (Auto) Urine RBC (Auto) 01/25/20 01/25/20 01/25/20 11:50 12:07 15:01 WBC RBC Hgb Hct MCV MCH MCHC RDW Plt Count Seg Neutrophils % VBG pH VBG pCO2 VBG HCO3 VBG Base Excess Sodium 139.0 Potassium 4.1 D Chloride 104 Carbon Dioxide 5 L* Anion Gap 30 H BUN 29 H Creatinine 1.35 H Est GFR ( Amer) > 60 Glucose 808 H* Calcium 9.4 Magnesium Total Bilirubin AST Alkaline Phosphatase Total Protein Albumin Lipase 44.4 Urine Color YELLOW Urine Appearance CLEAR Urine pH 5.0 Ur Specific [place] 1.020 Urine Protein 30 H Urine Glucose (UA) >=500 H Urine Ketones 80 H Urine Blood NEGATIVE Urine Nitrite NEGATIVE Ur Leukocyte Esterase NEGATIVE Urine WBC (Auto) 0 Urine RBC (Auto) 0 01/25/20 01/25/20 01/25/20 18:38 18:38 22:10 WBC RBC Hgb Hct MCV MCH MCHC RDW Plt Count Seg Neutrophils % VBG pH VBG pCO2 VBG HCO3 VBG Base Excess Sodium 140.9 142.0 Potassium 3.6 3.3 L Chloride 110 H 113 H Carbon Dioxide 11 L 18 L Anion Gap 20 H 11 BUN 28 H 24 H Creatinine 1.16 1.02 Est GFR ( Amer) > 60 > 60 Glucose 437 H* 136 H Calcium 9.1 9.3 Magnesium 2.2 Total Bilirubin AST Alkaline Phosphatase Total Protein Albumin Lipase Urine Color Urine Appearance Urine pH Ur Specific [place] Urine Protein Urine Glucose (UA) Urine Ketones Urine Blood Urine Nitrite Ur Leukocyte Esterase Urine WBC (Auto) Urine RBC (Auto) 01/26/20 01/26/20 01/26/20 00:22 02:39 06:50 WBC RBC Hgb Hct MCV MCH MCHC RDW Plt Count Seg Neutrophils % VBG pH VBG pCO2 VBG HCO3 VBG Base Excess Sodium 143.1 138.4 Potassium 3.4 L 3.9 Chloride 115 H 111 H Carbon Dioxide 20 L 16 L Anion Gap 8 11 BUN 19 18 Creatinine 0.91 0.89 Est GFR ( Amer) > 60 > 60 Glucose 98 311 H Calcium 9.3 9.3 Magnesium 1.9 1.9 Total Bilirubin AST Alkaline Phosphatase Total Protein Albumin Lipase Urine Color Urine Appearance Urine pH Ur Specific [place] Urine Protein Urine Glucose (UA) Urine Ketones Urine Blood Urine Nitrite Ur Leukocyte Esterase Urine WBC (Auto) Urine RBC (Auto) 01/25/20 01/25/20 11:50 11:50 Creatine Kinase 28 L CK-MB (CK-2) 1.34 Troponin I < 0.012 Impressions: Chest X-Ray 01/25/20 10:36 IMPRESSION: NO ACUTE RADIOGRAPHIC FINDING IN THE CHEST. All labs, radiographs, diagnostic studies and EKGs were personally reviewed: Yes In addition, reports of radiographic and diagnostic studies were read: Yes Assessment and Plan - Diagnosis (1) DKA (diabetic ketoacidoses) Qualifiers: Diabetes mellitus type: type 1 Diabetes mellitus complication detail: without coma Qualified Code(s): E10.10 - Type 1 diabetes mellitus with ketoacidosis without coma Is this a current diagnosis for this admission?: Yes Plan: Resolved (2) Hyperglycemia due to type 1 diabetes mellitus Is this a current diagnosis for this admission?: Yes Plan: * Start Lantus 20 units subcutaneously daily. * Continue sliding scale * Start diabetic diet. (3) Noncompliance Is this a current diagnosis for this admission?: Yes (4) Abnormal liver function test Is this a current diagnosis for this admission?: Yes (5) Acute diarrhea Is this a current diagnosis for this admission?: Yes (6) Bloody emesis Qualifiers: Nausea presence: with nausea Qualified Code(s): K92.0 - Hematemesis Is this a current diagnosis for this admission?: Yes (7) Hyperkalemia Is this a current diagnosis for this admission?: Yes (8) ISELA (acute kidney injury) Is this a current diagnosis for this admission?: Yes Plan: Resolved Plan Summary: OK to transfer to floor from pulmonary/critical care standpoint. Critical Time Critical Time (minutes): 30 Level of Care: ICU -: 1. The care of a critical patient is a dynamic process. This note is a personal service representative synopsis but static in nature. The timeframe for treatments given in order is not necessarily the actual time these treatments may have been done. 2. This patient requires critical care secondary to ongoing requirements for therapy not offered or safe outside the critical care environment. Transfer to a lower level of care will result in altered life or limb morbidity and mortality. 3. Multidisciplinary rounds completed. 4. ABCDE bundle addressed.
[2020-01-26] MEDS: PANTOPRAZOLE SODIUM 40 MG VIAL IV SCH ×2 (09:42→22:18)
[2020-01-26] MEDS: INSULIN GLARGINE,HUM.REC.ANLOG 1,000 UNIT/10 ML VIAL SUBCUT SCH (09:42)
[2020-01-26 11:17] LABS: ANION GAP 11 (5-19); BLOOD UREA NITROGEN 16 mg/dL (7-20); CALCIUM 9.2 mg/dL (8.4-10.2); CARBON DIOXIDE 16 mmol/L (22-30); CHLORIDE 110 mmol/L (98-107); GLUCOSE 276 mg/dL (75-110); POTASSIUM 3.6 mmol/L (3.6-5.0)
--- NOTE | 2020-01-26 17:54 | Progress Note ---
Provider Note Provider Note: The patient is a 54-year-old male, well-known to the hospital service, with a past medical history of CHF, hypertension, COPD, insulin-dependent diabetes mellitus, alcohol dependency, substance abuse, tobacco dependency, depression with behavioral disturbances, and medical noncompliance resulting in frequent readmissions for DKA. The patient was admitted to the office service coordinator service on 01/25/2020 with DKA and treated with aggressive IV fluids, insulin drip, calcium gluconate/dextrose/insulin for correction of hyperkalemia with peaked T waves, and serial chemistries. The patient's anion gap has closed, glucose is improved to 276, although, he does remain acidotic with a bicarb of 16. He is now stable for downgrade and is transferred to the hospitalist service for further management of the patient's resolving DKA and comorbidities. Overnight events, vital signs, nursing notes, laboratory results, imaging, H&P and progress notes, and orders reviewed. Agree with the plan of care as established by the previous provider. I have made some subtle adjustments to the medication regiment to better accommodate his floor status. Continue generous IV fluids. Continue twice daily Protonix. Patient has been started on subcutaneous insulin; continue Lantus 20 units daily. This is the same dose the patient was discharged on just 3 weeks ago. Adjust Accu-Cheks and sliding scale insulin to match mealtimes as the patient has been advanced to a consistent carb diet. Continue serial chemistries every 8 hours. Nursing noted a wound to the patient's posterior right shoulder; shallow 1.5 cm ulceration with purulent drainage. Patient has had noted to have numerous similar ulcerations to his upper back, bilateral posterior shoulders and posterior arms (?picking). There is no evidence of parasitic (scabies, bed bug, or otherwise) infection.
[2020-01-26] MEDS ORDERED: ZIPRASIDONE MESYLATE INJ/PF 20 MG SDV IM PRN (18:55)
[2020-01-26] MEDS: NORMAL SALINE 1000 ML 1,000 ML IV PRN (21:00)
[2020-01-27] MEDS: IPRATROPIUM/ALBUTEROL 0.5-2.5 MG/3 ML AMPUL NEB SCH ×2 (01:31→10:31)
[2020-01-27] MEDS: NORMAL SALINE 1000 ML 1,000 ML IV PRN (04:09)
[2020-01-27] MEDS ORDERED: NORMAL SALINE 1000 ML 1,000 ML IV PRN (05:03)
[2020-01-27 06:59] LABS: HEMATOCRIT 29.1 % (37.9-51.0); HEMOGLOBIN 9.5 g/dL (13.5-17.0); MEAN CORPUSCULAR HGB CONC 32.6 g/dL (32.0-36.0); PLATELET COUNT 241 10^3/uL (150-450); RED BLOOD COUNT 3.27 10^6/uL (4.35-5.55); RED CELL DISTRIBUTION WIDTH 16.6 % (11.5-14.0); WHITE BLOOD COUNT 11.5 10^3/uL (4.0-10.5)
[2020-01-27 07:00] LABS: MEAN CORPUSCULAR VOLUME 89 fl (80-97)
[2020-01-27] MEDS: INSULIN REG, HUMAN 100 UNIT/ML 3 ML VIAL (PYX) SUBCUT SCH ×2 (07:56→11:21)
[2020-01-27 10:02] LABS: ALBUMIN 3.2 g/dL (3.5-5.0); ALKALINE PHOSPHATASE 174 U/L (38-126); ANION GAP 5 (5-19); ASPARTATE AMINO TRANSFERASE 71 U/L (17-59); BILIRUBIN,DIRECT 0.2 mg/dL (0.0-0.4); BILIRUBIN,TOTAL 0.6 mg/dL (0.2-1.3); BLOOD UREA NITROGEN 6 mg/dL (7-20); CALCIUM 9.1 mg/dL (8.4-10.2); CHLORIDE 101 mmol/L (98-107); GLUCOSE 86 mg/dL (75-110); POTASSIUM 3.2 mmol/L (3.6-5.0); TOTAL PROTEIN 6.4 g/dL (6.3-8.2)
[2020-01-27 10:03] LABS: CARBON DIOXIDE 29 mmol/L (22-30)
[2020-01-27] MEDS: PANTOPRAZOLE SODIUM 40 MG VIAL IV SCH (11:11)
[2020-01-27] MEDS: INSULIN GLARGINE,HUM.REC.ANLOG 1,000 UNIT/10 ML VIAL SUBCUT SCH (11:12)
[2020-01-27] MEDS ORDERED: LISINOPRIL 10 MG TABLET PO SCH (11:30)
[2020-01-27] MEDS ORDERED: POTASSIUM CHLORIDE 10 MEQ TABLET.ER PO ONE (11:30)
[2020-01-27 12:57] VITALS: BP 165/92
--- NOTE | 2020-01-27 12:57 | PDOC DISCHARGE SUMMARY ---
Impression - Admit/DC Date/PCP Admission Date/Primary Care Provider: 01/25/20 15:20 ERNST POTTER MD Discharge Date: 01/27/20 - Discharge Diagnosis (1) Abnormal liver function test Is this a current diagnosis for this admission?: Yes (2) Acute diarrhea Is this a current diagnosis for this admission?: Yes (3) ISELA (acute kidney injury) Is this a current diagnosis for this admission?: Yes (4) Bloody emesis Is this a current diagnosis for this admission?: Yes (5) DKA (diabetic ketoacidoses) Is this a current diagnosis for this admission?: Yes (6) Hyperglycemia due to type 1 diabetes mellitus Is this a current diagnosis for this admission?: Yes (7) Hyperkalemia Is this a current diagnosis for this admission?: Yes (8) Noncompliance Is this a current diagnosis for this admission?: Yes - Additional Information Resuscitation Status: Full Code Discharge Diet: Cardiac, Diabetic Discharge Activity: Activity As Tolerated, Balance Activity w/Rest, Slowly Increase Activity Referrals: ERNST POTTER MD [Primary Care Provider] - (Follow up with your primary care provider within 1 week.) Prescriptions: Clindamycin HCl 300 mg PO Q6H #28 capsule Insulin Lispro [Humalog Kwikpen U-100] 15 unit SQ PC #1 insuln.pen Insulin Glargine,Hum.rec.anlog [Lantus Insulin 100 Unit/mL Insulin Pen] 20 unit SUBCUT DAILY #10 ml Pantoprazole Sodium [Protonix] 40 mg PO DAILY #30 tablet. Home Medications: Clindamycin HCl 300 mg PO Q6H #28 capsule 01/27/20 Insulin Glargine,Hum.rec.anlog [Lantus Insulin 100 Unit/mL Insulin Pen] 20 unit SUBCUT DAILY #10 ml 01/27/20 Insulin Lispro [Humalog Kwikpen U-100] 15 unit SQ PC #1 insuln.pen 01/27/20 Lisinopril [Prinivil 10 mg Tablet] 20 mg PO DAILY tablet 01/27/20 Pantoprazole Sodium [Protonix] 40 mg PO DAILY #30 tablet. 01/27/20 History of Present Illiness History of Present Illness: Per H&P by Dr. Payton, [employer]: This 54-year-old male presented On [facility] emergency department with complaints of nausea, vomiting and diarrhea. He is a noncompliant diabetic who is well-known to this service. He has had 5 admissions to the ICU for diabetic ketoacidosis during 2019. Review of the chart reveals that the patient's mother reported compliance with his insulin; however, he has only been taking his short acting insulin intermittently. His blood sugars have been high all week. At the time of clinical interview, the patient is awake, alert and oriented. He appears miserable. He is not cooperative with clinical exam or interview. He denies pain. He endorses nausea, vomiting and diarrhea. He denies shortness of breath. He is visibly tachypneic. His SPO2 is 100% on room air. Laboratory evaluation in the emergency department was compatible with diabetic ketoacidosis. Hospital Course Hospital Course: The patient was admitted to the [facility] service on 01/25/2020 with DKA and treated with aggressive IV fluids, insulin drip, calcium gluconate/dextrose/insulin for correction of hyperkalemia with peaked T waves, and serial chemistries. The patient's anion gap has closed and acidosis improved. He was then downgraded to floor status and transferred to the hospitalist service. He was continued on generous IVF. Diet advanced to consistent carb, and his prior insulin regimen resumed (dosing based on his discharge from just 3 weeks ago). Adequate glucose control was rapidly obtained and acidosis resolved. Wound culture was obtained due to slight purulent drainage from one wound on his posterior right shoulder. 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 He was started on oral clindamycin. There was no induration/fluctuance and as the wound was actively draining, did not warrant surgical intervention. Patient was discharged home, in stable condition, into the care of his mother. Physical Exam Vital Signs: Temp Pulse Resp BP Pulse Ox 97.8 F 102 H 17 173/109 H 100 01/27/20 10:00 01/26/20 20:00 01/26/20 20:00 01/26/20 20:00 01/26/20 20:00 Intake & Output 01/26/20 01/27/20 01/28/20 06:59 06:59 06:59 Intake Total 3253 2958 Output Total 1800 3500 Balance 1453 -542 Weight 48.3 kg 48.9 kg General appearance: PRESENT: no acute distress, disheveled, thin, well- developed. ABSENT: cooperative Head exam: PRESENT: atraumatic, normocephalic Eye exam: PRESENT: conjunctiva pink, EOMI, PERRLA. ABSENT: scleral icterus Mouth exam: PRESENT: moist, tongue midline Teeth exam: PRESENT: poor dentation Respiratory exam: PRESENT: clear to auscultation baldemar, symmetrical, unlabored, other - room air. ABSENT: rales, rhonchi, wheezes Cardiovascular exam: PRESENT: RRR. ABSENT: diastolic murmur, rubs, systolic murmur Pulses: PRESENT: normal dorsalis pedis pul Vascular exam: PRESENT: normal capillary refill GI/Abdominal exam: PRESENT: normal bowel sounds, soft. ABSENT: distended, guarding, mass, organolmegaly, rebound, tenderness Rectal exam: PRESENT: deferred Extremities exam: PRESENT: full ROM. ABSENT: calf tenderness, clubbing, pedal edema Neurological exam: PRESENT: alert, awake, oriented to person, oriented to place, oriented to time, oriented to situation, CN II-XII grossly intact. ABSENT: motor sensory deficit Psychiatric exam: PRESENT: agitated, normal mood. ABSENT: homicidal ideation, suicidal ideation Skin exam: PRESENT: dry, warm, other - Shallow 1.5 cm ulceration with purulent drainage tp posterior right shoulder. Numerous similar ulcerations to his upper back, bilateral posterior shoulders and posterior arms. Similar findings noted during prior admissions.. ABSENT: cyanosis, rash Results Laboratory Results: WBC 11.5 10^3/uL (4.0-10.5) H 01/27/20 06:23 RBC 3.27 10^6/uL (4.35-5.55) L 01/27/20 06:23 Hgb 9.5 g/dL (13.5-17.0) L 01/27/20 06:23 Hct 29.1 % (37.9-51.0) L 01/27/20 06:23 MCV 89 fl (80-97) D 01/27/20 06:23 MCH 29.0 pg (27.0-33.4) 01/27/20 06:23 MCHC 32.6 g/dL (32.0-36.0) 01/27/20 06:23 RDW 16.6 % (11.5-14.0) H 01/27/20 06:23 Plt Count 241 10^3/uL (150-450) 01/27/20 06:23 Lymph % (Auto) Not Reportable 01/25/20 11:50 [place] % (Auto) Not Reportable 01/25/20 11:50 Eos % (Auto) Not Reportable 01/25/20 11:50 Baso % (Auto) Not Reportable 01/25/20 11:50 Absolute Neuts (auto) Not Reportable 01/25/20 11:50 Absolute Lymphs (auto) Not Reportable 01/25/20 11:50 Absolute Monos (auto) Not Reportable 01/25/20 11:50 Absolute Eos (auto) Not Reportable 01/25/20 11:50 Absolute Basos (auto) Not Reportable 01/25/20 11:50 Total Counted 100 01/25/20 11:50 Seg Neutrophils % Not Reportable 01/25/20 11:50 Seg Neuts % (Manual) 86 % (42-78) H 01/25/20 11:50 Band Neutrophils % 2 % (3-5) L 01/25/20 11:50 Lymphocytes % (Manual) 10 % (13-45) L 01/25/20 11:50 Monocytes % (Manual) 1 % (3-13) L 01/25/20 11:50 Eosinophils % (Manual) 0 % (0-6) 01/25/20 11:50 Basophils % (Manual) 1 % (0-2) 01/25/20 11:50 Abs Neuts (Manual) 9.7 10^3/uL (1.7-8.2) H 01/25/20 11:50 Abs Lymphs (Manual) 1.1 10^3/uL (0.5-4.7) 01/25/20 11:50 Abs Monocytes (Manual) 0.1 10^3/uL (0.1-1.4) 01/25/20 11:50 Absolute Eos (Manual) 0.0 10^3/uL (0.0-0.6) 01/25/20 11:50 Abs Basophils (Manual) 0.1 10^3/uL (0.0-0.2) 01/25/20 11:50 Toxic Vacuolation PRESENT 01/25/20 11:50 Large Platelets PRESENT 01/25/20 11:50 Platelet Comment ADEQUATE 01/25/20 11:50 Polychromasia SLIGHT 01/25/20 11:50 Anisocytosis 1+ 01/25/20 11:50 Macrocytosis 2+ 01/25/20 11:50 VBG pH 6.93 (7.30-7.42) L* 01/25/20 11:50 VBG pCO2 25.0 mmHg (35-63) L 01/25/20 11:50 VBG HCO3 5.1 mmol/L (20-32) L 01/25/20 11:50 VBG Base Excess -26.4 mmol/L 01/25/20 11:50 Sodium 135.0 mmol/L (137-145) L 01/27/20 09:10 Potassium 3.2 mmol/L (3.6-5.0) L 01/27/20 09:10 Chloride 101 mmol/L (98-107) 01/27/20 09:10 Carbon Dioxide 29 mmol/L (22-30) D 01/27/20 09:10 Anion Gap 5 (5-19) 01/27/20 09:10 BUN 6 mg/dL (7-20) L 01/27/20 09:10 Creatinine 0.79 mg/dL (0.52-1.25) 01/27/20 09:10 Est GFR ( Amer) > 60 (>60) 01/27/20 09:10 Est GFR (MDRD) Non-Af > 60 (>60) 01/27/20 09:10 Glucose 86 mg/dL (75-110) 01/27/20 09:10 POC Glucose 121 mg/dL (70-110) H 01/27/20 11:11 Hemoglobin A1c % 8.4 % (4.7-6.0) H 01/25/20 11:50 Calcium 9.1 mg/dL (8.4-10.2) 01/27/20 09:10 Magnesium 1.8 mg/dL (1.6-2.3) 01/26/20 10:44 Total Bilirubin 0.6 mg/dL (0.2-1.3) 01/27/20 09:10 Direct Bilirubin 0.2 mg/dL (0.0-0.4) 01/27/20 09:10 Neonat Total Bilirubin Not Reportable 01/27/20 09:10 Neonat Direct Bilirubin Not Reportable 01/27/20 09:10 Neonat Indirect Bili Not Reportable 01/27/20 09:10 AST 71 U/L (17-59) H 01/27/20 09:10 ALT 33 U/L (<50) 01/27/20 09:10 Alkaline Phosphatase 174 U/L (38-126) H 01/27/20 09:10 Creatine Kinase 28 U/L (55-170) L 01/25/20 11:50 CK-MB (CK-2) 1.34 ng/mL (<4.55) 01/25/20 11:50 Troponin I < 0.012 ng/mL 01/25/20 11:50 Total Protein 6.4 g/dL (6.3-8.2) 01/27/20 09:10 Albumin 3.2 g/dL (3.5-5.0) L 01/27/20 09:10 Lipase 44.4 U/L (23-300) 01/25/20 11:50 Urine Color YELLOW 01/25/20 12:07 Urine Appearance CLEAR 01/25/20 12:07 Urine pH 5.0 (5.0-9.0) 01/25/20 12:07 Ur Specific [place] 1.020 01/25/20 12:07 Urine Protein 30 mg/dL (NEGATIVE) H 01/25/20 12:07 Urine Glucose (UA) >=500 mg/dL (NEGATIVE) H 01/25/20 12:07 Urine Ketones 80 mg/dL (NEGATIVE) H 01/25/20 12:07 Urine Blood NEGATIVE (NEGATIVE) 01/25/20 12:07 Urine Nitrite NEGATIVE (NEGATIVE) 01/25/20 12:07 Urine Bilirubin NEGATIVE (NEGATIVE) 01/25/20 12:07 Urine Urobilinogen NEGATIVE mg/dL (<2.0) 01/25/20 12:07 Ur Leukocyte Esterase NEGATIVE (NEGATIVE) 01/25/20 12:07 Urine WBC (Auto) 0 /HPF 01/25/20 12:07 Urine RBC (Auto) 0 /HPF 01/25/20 12:07 U Hyaline Cast (Auto) 4 /LPF 01/25/20 12:07 Urine Bacteria (Auto) TRACE /HPF 01/25/20 12:07 Urine Mucus (Auto) RARE /LPF 01/25/20 12:07 Urine Ascorbic Acid NEGATIVE (NEGATIVE) 01/25/20 12:07 Urine Opiates Screen NEGATIVE 01/25/20 12:07 Urine Methadone Screen NEGATIVE 01/25/20 12:07 Ur Barbiturates Screen NEGATIVE 01/25/20 12:07 Ur Phencyclidine Scrn NEGATIVE 01/25/20 12:07 Ur Amphetamines Screen NEGATIVE 01/25/20 12:07 U Benzodiazepines Scrn NEGATIVE 01/25/20 12:07 Urine Cocaine Screen NEGATIVE 01/25/20 12:07 U Marijuana (THC) Screen NEGATIVE 01/25/20 12:07 01/25/20 11:50 CK-MB (CK-2) 1.34 Troponin I < 0.012 Impressions: Chest X-Ray 01/25/20 10:36 IMPRESSION: NO ACUTE RADIOGRAPHIC FINDING IN THE CHEST. Plan Plan of Treatment: Patient is discharged home in stable condition, into the care of his mother. He is advised to follow up with his primary care provider within 1 week. He is instructed to take his medications as prescribed. Eat a consistent carb diet. Drink plenty of water. Return to the emergency department, as needed, for concerning symptoms. Time Spent: Greater than 30 Minutes Stroke Is this a Stroke Patient?: No Acute Heart Failure Is this a Heart Failure Patient?: No
== END 2020-01-27 14:15 | disposition home or self-care (01) | DRG 638 ==
LOC: ER 09:39 → EH 15:20 → ICU 19:40 → 4S 01-26 12:53
PROVIDERS: ADMIT Internal Medicine Critical Care Medicine; ATTEND Registered Nurse
DX: E10.10 Type 1 diabetes mellitus with ketoacidosis without coma (principal); N17.9 Acute kidney failure, unspecified; K92.0 Hematemesis; I50.32 Chronic diastolic (congestive) heart failure; T38.3X6A Underdosing of insulin and oral hypoglycemic [antidiabetic] drugs, initial encounter; Z78.1 Physical restraint status; I11.0 Hypertensive heart disease with heart failure; J44.9 Chronic obstructive pulmonary disease, unspecified; R94.5 Abnormal results of liver function studies; R19.7 Diarrhea, unspecified; F17.210 Nicotine dependence, cigarettes, uncomplicated; E87.5 Hyperkalemia; F10.20 Alcohol dependence, uncomplicated; Z91.19 Patient's noncompliance with other medical treatment and regimen; Z91.128 Patient's intentional underdosing of medication regimen for other reason; Z90.2 Acquired absence of lung [part of]
CPT/HCPCS: 36415; 71045; 80048; 80053; 80307; 81001; 82550; 82553; 82803; 82962; 83036; 83690; 83735; 84484; 85025; 85027; 87040; 87070; 87077; 87086; 87186; 87205; 93005; 93010; 94640; 96361; 96365; 96366; 96375; 99221; 99285; 99291; C9113; J0610; J1815; J2060; J2405; J3480; J3486; J7030